=== PATIENT | female | born 1950 | race Caucasian/White ===

== ENCOUNTER → 2018-03-31 08:31 | Outpatient (CLI) | payer OTHER, SELFPAY | PROVIDERS: Visit Provider Internal Medicine Gastroenterology | DX: R13.10 Dysphagia, unspecified (principal); K21.9 Gastro-esophageal reflux disease without esophagitis | CPT/HCPCS: 74220 ==

== ENCOUNTER → 2019-08-14 10:18 | Outpatient (CLI) | payer OTHER, SELFPAY ==
[2018-12-01 13:17] VITALS: BMI 32.5
--- NOTE | 2019-08-14 10:23 | US_ITS ---
STUDY: ABDOMINAL ULTRASOUND - RIGHT UPPER QUADRANT REASON FOR VISIT: Female, 69 years old GENERAL ABD AND BACK PAIN X 3 MONTHS TECHNIQUE: Ultrasound evaluation of the right upper quadrant was performed with real-time and static castrejon-scale imaging. TECHNICAL QUALITY: Adequate. COMPARISON: None. FINDINGS: Liver: The liver measures 17.0 cm. There is increased echogenicity consistent with fatty infiltration. The bile ducts are within normal limits. There is hepatic color flow. The direction of portal flow is hepatopetal. There is a left hepatic lobe cyst measuring 1.2 cm. There is a 5 mm calcified granuloma in the inferior right hepatic lobe. Gallbladder: Normal distended gallbladder. The gallbladder wall measures 2.9 mm. There is a negative sonographic Damian''s sign. There is no pericholecystic fluid. There is a small amount of sludge and several tiny gallstones. Common Bile Duct (C.B.D.): The common bile duct measures 4.3 mm. Pancreas: Normal size of the head, body and tail of the pancreas. There is increased echogenicity of the pancreas. There is no demonstrated pancreatic mass or cyst. Right Kidney: Normal size of the right kidney. The right kidney measures 10.0 x 5.6 x 4.7 cm. Normal renal cortex. The right cortex measures 1.5 cm. There is no demonstrated renal mass or cyst. There is no right hydronephrosis. US/Abdomen Limited IMPRESSION: Increased hepatic echogenicity suggestive of steatosis. 1.2 cm left hepatic lobe cyst. 5 mm calcified granuloma of the inferior right hepatic lobe. Cholelithiasis. Small amount of sludge also seen in the gallbladder. Increased pancreatic echogenicity which may represent fatty infiltration. Electronically Signed: Bret Vargas MD at 21:24 EST , Service support ,
== END ==
PROVIDERS: Referring Provider Nurse Practitioner Family; Visit Provider Nurse Practitioner Family
DX: R10.10 Upper abdominal pain, unspecified (principal)
CPT/HCPCS: 76705

== ENCOUNTER 2019-09-05 08:43 | Observation (INO) | payer OTHER, MEDICARE, SELFPAY ==
[2019-08-23 14:09] VITALS: BMI 32.5
[2019-09-05] VITALS (12 sets, daily range): BP systolic 109–139; BP diastolic 49–80; PULSE 56–65; RESP 16; TEMP 36.6–36.7; O2SAT 91–99; BMI 35.0; BMI 34.4
--- NOTE | 2019-09-05 08:56 | EKG12_ITS ---
Test Reason : PRE OP Blood Pressure : / mmHG Vent. Rate : 059 BPM Atrial Rate : 059 BPM P-R Int : 180 ms QRS Dur : 094 ms QT Int : 414 ms P-R-T Axes : 035 -01 010 degrees QTc Int : [address] & T wave abnormality, consider anterior ischemia Abnormal ECG Confirmed by SIOMARA CURRAN ([id number]), content editor MEHNAZ HARPER ([id number]) on 09/08/2019 9:46:12 AM Referred By: MEHRDAD Confirmed By:SIOMARA CURRAN
--- NOTE | 2019-09-05 09:00 | RAD_ITS ---
STUDY: X-RAY CHEST REASON FOR EXAM: Female, 69 years old. SOB. ABNORMAL EKG. CHEST PAIN. TECHNIQUE: Single AP portable view of the chest. COMPARISON: None. FINDINGS: EKG electrodes are seen. Elevation of the right hemidiaphragm. Stable right pericardial fat. There is no demonstrated pleural abnormality. Normal size heart. Normal mediastinum and pearl. Normal visualized pulmonary arteries. There is atherosclerotic tortuosity of the aortic arch and descending thoracic aorta. There are degenerative changes of the visualized thoracic spine. Normal visualized ribs, clavicles, and shoulders. There is no demonstrated abnormality of the visualized soft tissue structures of the upper abdomen. RAD/Chest 1 View (Portable) IMPRESSION: No acute abnormality is seen. Electronically Signed: Octavio Aviles, at 9:38 EST , Service support ,
[2019-09-05] MEDS: 0.9% Normal Saline 1,000 ML 150 ML IV (09:28)
[2019-09-05] MEDS: Aspirin 81 MG TAB.CHEW 324 MG PO (09:28)
--- NOTE | 2019-09-05 10:15 | ED.DCSUM_ITS ---
- ER Visit Summary Date of Service: 09/05/19 Chief Complaint: [Abnormal EKG] History of Present Illness: The patient is a 69 F [presents to the emergency department with complaint of an abnormal EKG that was noted today at preadmission testing. Patient was having basic testing performed prior to having outpatient cholecystectomy in 2 weeks. Patient also was to have an EGD and colonoscopy today. EKG was noted to be markedly abnormal and she was referred to the emergency department. Patient denies any chest pain. She does state that she has had some increased exertional dyspnea. Patient also had some odd discomfort in her left shoulder several days ago that resolved after short time. Her last stress test was 25 to 30 years ago. He has no heart history. She does have history of hypertension and hypothyroidism. She denies recent travel or surgery.] Physical Examination: [HEENT-PERRLA, EOMI. Cranial nerves II through XII grossly intact. TMs clear. Mucous membranes moist. No adenopathy. Cardiovascular-regular rate and rhythm without murmur or ectopy Lungs-clear to auscultation, chest wall stable without crepitus or subcu emphysema Abdomen-normoactive bowel sounds, soft, nontender, no rebound or rigidity, no peritoneal signs. Extremities-intact ?4, normal range of motion, normal pulses, atraumatic] Test Results: [EKG obtained arrival shows sinus rhythm at a ventricular rate of [address] depressions from V1 to V5. When compared with prior EKG from 2005 the T wave inversions in V1 and V2 were much more subtle in 2006 and did not extend to V5.] Emergency Department Course and Treatment: [Patient was given aspirin on arrival. Patient was placed on monitoring engineer.] Treatment Plan: [Admit for further evaluation of abnormal EKG and exertional dyspnea to rule out acute coronary syndrome] Disposition: [Admit] Impression: [Exertional dyspnea Abnormal EKG Rule out acute coronary syndrome] This note was generated with [employer] dictation software. It may contain incorrect words, spelling, and punctuation that were not noted in review of the chart prior to signing ED Disposition - Plan for ED Patient: Referrals: Jonathan Ricks MD [Primary Care Provider] -
--- NOTE | 2019-09-05 10:15 | NURSING ---
108 EXERTIONAL SOB, EKG CHANGES ASHELFAH
--- NOTE | 2019-09-05 10:47 | HP.PCM_ITS ---
Problem List (1) Hypersomnia Status: Chronic (2) Depression Status: Chronic (3) Hypothyroidism Status: Chronic (4) HTN (hypertension), benign Status: Chronic History of Present Illness Date of Admission: 09/05/19 Chief Complaint: Abnormal EKG. The patient is a 69 year old F patient with past medical history as mentioned above was sent to the emergency department from preadmission testing because of abnormal EKG. Today, patient had blood work and EKG done for outpatient, supposed to go for upper EGD and colonoscopy today and cholecystectomy that was scheduled in 2 weeks and she was found to have abnormal EKG. Upon questioning, patient complained of shortness of breath that has been going on for several months, mild, comes on with moderate activity, exertional, no associated symptoms and without aggravating or relieving factors. She mentioned that few weeks ago, she had an episode of left shoulder pain that was different, pain on the top of the left shoulder, goes down to the left side of the neck, lasted for several minutes and then resolved spontaneously. She was diagnosed with T12 compression fracture recently and she has been having back pain that goes around her lower chest. Nausea, vomiting, diaphoresis, dizziness, syncope or presyncope. In the emergency department, her vital signs are stable. Her routine blood work was unremarkable. An EKG revealed normal sinus rhythm, inverted T waves in leads V3, V4 and V5, minimal ST segment depression on V3 and V4 and those changes are new compared to EKG from 2005. Chest x-ray showed no acute findings. She is being admitted for exertional shortness of breath and abnormal EKG for evaluation. Past Medical History Past Medical History (Chronic Problems): Chronic Problems (Last Updated 09/05/19 @ 10:08 by Abdirashid Gambino MD) Hypersomnia (Chronic) History of breast cancer (Chronic) Depression (Chronic) Hypothyroidism (Chronic) HTN (hypertension), benign (Chronic) Medical History: Medical History (Last Updated 09/05/19 @ 10:08 by Abdirashid Gambino MD) History of breast cancer (Chronic) Z85.3 Depression (Chronic) F32.9 Hypothyroidism (Chronic) E03.9 HTN (hypertension), benign (Chronic) I10 Allergies egg Allergy (Verified 09/05/19 08:43) Food Allergy wheat Allergy (Verified 09/05/19 08:43) Food Allergy dairy products Allergy (Uncoded 09/05/19 08:43) Food Allergy Home Medications: Ambulatory Orders Medication Instructions Recorded atenolol 50 mg tablet 50 mg PO DAILY 11/17/18 cetirizine 10 mg capsule 10 mg PO DAILY cap 11/17/18 paroxetine HCl 20 mg tablet 20 mg PO BID tab 11/17/18 alendronate 70 mg tablet 70 mg PO QWEEK 08/23/19 indapamide 1.25 mg tablet 1.25 mg PO QAM 08/23/19 levothyroxine 125 mcg tablet 150 mcg PO DAILY tab 08/23/19 Omeprazole 40 mg PO 1700 08/31/19 Calcium (Elemental) [Os-Madhu 500] 500 mg PO BIDCM 09/04/19 Cholecalciferol (Vitamin D3) 5,000 unit PO DAILY 09/04/19 [Vitamin D3] Surgical History: Surgical History (Last Reviewed 09/05/19 @ 10:47 by Abdirashid Gambino MD) History of (Inactive) Z98.891 History of arthroscopic knee surgery (Inactive) Z98.890 History of fusion of cervical spine (Inactive) Z98.1 Status post breast lumpectomy (Inactive) Z98.890 Surgical History: - Psychiatric History: Depression 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 Lives: Spouse/ Significant Other Smoking Status: Never smoker Alcohol: Occasional Drugs: None - *Family History Maternal Family History: Family History (Last Reviewed 09/05/19 @ 10:48 by Abdirashid Gambino MD) Mother Breast cancer Father Cancer Grandmother Heart disease CVA (cerebral vascular accident) Sister Heart disease Cancer COPD (chronic obstructive pulmonary disease) Multiple sclerosis Review of Systems Constitutional: Denies: Anorexia, Chills, Fever, Weakness Eyes: Denies: Blurred vision, Double vision, Drainage, Redness HEENT: Denies: Difficulty Hearing, Ear Pain, Eye Pain, Nasal Congestion, Sore Throat Cardiovascular: Denies: Chest Pain, Chest Pressure, Chest Tightness, Heaviness, Light Headedness, Orthopnea, Paroxysmal Noc. Dyspnea, Syncope Respiratory: Reports: Shortness of breath upon exertion. Denies: Cough, Pleuritic Pain, Shortness of breath at rest, Sputum production, Wheezing Gastrointestinal: Denies: Abdominal Pain, Constipation, Diarrhea, Nausea Genitourinary: Denies: Dysuria, Frequency, Hematuria Musculoskeletal: Reports: Back Pain. Denies: Arm Pain, Foot Pain Skin: Denies: Dryness, Rash Neurological: Denies: Balance problems, Blurred vision, Double vision, Slurred speech, Confusion, Incoordination, Numbness Psychiatric: Reports: Depression. Denies: Anxiety Endocrine: Denies: Change in Body Habitus, Polydipsia, Polyuria VTE Information - Inpt Only VTE Present on Admission: No VTE Mechan Device Prophylaxis: None VTE Pharm Prophylaxis ordered?: Yes - Physical Exam Vitals/I&O's: Vital Signs Temp Pulse Resp BP Pulse Ox 98.1 F 65 16 139/80 H 99 09/05/19 08:44 09/05/19 08:44 09/05/19 08:44 09/05/19 08:44 09/05/19 09:16 Oxygen Delivery Method Room Air Weight: 198 lb Body Mass Index (BMI) 35.0 General: Alert, Oriented x3, Cooperative, No apparent distress HEENT: Atraumatic, PERRLA, EOMI, Normocephalic Oral: Moist Mucosa, No Gingival or Mucosal Lesions/ Ulcerations Neck: Supple, No JVD, Negative Carotid Bruits, Trachea Midline, Thyroid Normal Size and Texture Lungs: Clear to auscultation, Normal air movement, No rhonchi, No wheeze, No rales Cardiovascular: Regular rate, Regular Rhythm, Normal S1, Normal S2, No murmurs, PMI Normal Abdomen: Bowel Sounds Present, Soft, Non Tender, Non-Distended, No Hepato- splenomegaly, Obese Extremities: No clubbing, No cyanosis, No edema Skin: No rashes, No breakdown Lymphatic: No Cervical, Supraclavicular, or Inguinal Adenopathy Neurological: Cranial nerves II-XII grossly intact, Motor Exam 5/5 strength throughout Psych/Mental Status: Normal Affect, Appropriate, Alert and oriented to time, place, person, mood and affect Laboratory Results 09/05/19 09:10: Troponin I < 0.015 CBC: WBC is 5.6, hemoglobin 13.7, platelet count 237,000. BMP: Sodium 139, potassium 3.7, chloride 106, bicarb is 26, BUN 14, creatinine is 0.91, glucose is 110. Troponin less than 0.015. Current Medications Acetaminophen (Tylenol) 650 mg PO Q6H PRN PRN PRN Reason: Pain Score 1-10/Temp > 100.7 F Aspirin (Ecotrin) 81 mg PO DAILY@0800 [facility] Enoxaparin Sodium (Lovenox) 40 mg SC DAILY [facility] Sodium Chloride () 1,000 mls @ 75 mls/hr IV .[id number] [facility] Stop: 09/05/19 23:53 Levothyroxine Sodium (Synthroid) 150 mcg PO DAILY [facility] Non-Formulary Medication (Cetirizine Hcl [Zyrtec]) 10 mg PO DAILY [facility] Non-Formulary Medication (Indapamide) 1.25 mg PO QAM [facility] Non-Formulary Medication (Omeprazole) 40 mg PO 1700 [facility] Ondansetron HCl (Zofran) 4 mg IV Q8H PRN PRN PRN Reason: NAUSEA/VOMITING Paroxetine HCl (Paxil) 20 mg PO BID [facility] Assessment/Plan This is a 69 years old female patient presented to the emergency room because of abnormal EKG that was done as outpatient today and complained of mild exertional shortness of breath and she is being admitted for evaluation. #1 exertional shortness of breath/EKG changes: EKG reviewed as above, septal changes including T wave inversion in V3, V4 and V5, minimal ST segment depression V3 and V4. No acute ST depression. Chest x-ray without acute findings. Troponin was negative. Her heart score is is 4 points, moderate. Plan: Admit to PCU observation, cardiac monitoring, serial cardiac enzymes, repeat EKG tomorrow morning, fasting lipid profile, start baby aspirin, Tylenol PRN, IV fluids, nuclear stress test tomorrow morning if cardiac enzymes are negative. #2 hypertension: Blood pressure stable, continue indapamide, hold atenolol as she is going for stress test tomorrow morning. #3 hypothyroidism: Continue levothyroxine. #4 history of breast cancer: Status post lumpectomy, stable, in remission. #5 depression: Stable, continue Paxil. #6 DVT prophylaxis: Subcu Lovenox. This note was generated with Ordr.ination software. It may contain incorrect words, spelling, and punctuation that were not noted in checking the note before signing. Code Visit OBSV E&M: 79506 Initial observation care L2
--- NOTE | 2019-09-05 11:19 | ECHOCS_ITS ---
Reason For Study: Abn. EKG Procedure This was a 2D Doppler, Color Flow transthoracic echocardiogram. The study was technically difficult. Exam performed portable in patient room. Left Ventricle Normal LV size. Left ventricular systolic function is normal. The estimated ejection fraction is 65 %. Diastolic function is indeterminate. No regional wall motion abnormalities noted. Right Ventricle Normal RV size. Normal systolic function. Atria Normal left atrium. Normal right atrium. No doppler evidence for ASD. Mitral Valve There is no mitral annular calcification. Normal mitral valve. Mild (1+) mitral valve insufficiency. Tricuspid Valve Normal tricuspid valve. Trivial tricuspid valve insufficiency. Unable to estimate RV systolic pressure/pulmonary artery pressure due to technically difficult study. Aortic Valve Trisinus/trileaflet aortic valve. Mild focal aortic valve calcification. Pulmonic Valve The pulmonic valve is not well visualized. Trivial pulmonic valve insufficiency. Great Vessels Normal sized aortic root. Pericardium/Pleural No pericardial effusion. MMode/2D Measurements & Calculations LVIDd: 4.8 cm IVSd: 1.0 cm Ao root diam: 3.4 cm LVIDs: 3.0 cm LVPWd: 0.81 cm RVDd: 3.1 cm FS: 37.2 % LAV(MOD-bp): 34.7 ml EDV(MOD-sp4): 83.6 ml EDV(MOD-sp2): 66.9 ml LAV(MOD-bp) Indexed: 18.0 ml/m2 ESV(MOD-sp4): 31.7 ml EF(MOD-sp2): 58.7 % LAV(MOD-sp2): 30.2 ml EF(MOD-sp4): 62.1 % LAV(MOD-sp4): 40.5 ml SV(MOD-sp4): 51.9 ml SV(MOD-sp2): 39.2 ml LA A4 area: 15.9 cm2 LA dimension(2D): 3.9 cm RA A4 area: 13.4 cm2 Doppler Measurements & Calculations MV E max terell: 84.0 cm/sec Lat Peak E' Terell: 8.7 cm/sec Med Peak E' Terell: 7.8 cm/sec MV A max terell: 84.5 cm/sec E/E' lat: 9.7 E/E' med: 10.8 MV E/A: 0.99 Ao V2 max: 142.5 cm/sec LV V1 max: 102.6 cm/sec PA V2 max: 100.9 cm/sec Ao max P.1 mmHg LV V1 max P.2 mmHg Interpretation Summary The study was technically difficult. Left ventricular systolic function is normal. The estimated ejection fraction is 65 %. Mild (1+) mitral valve insufficiency. Trivial tricuspid valve insufficiency. Mild focal aortic valve calcification. Trivial pulmonic valve insufficiency. Unable to estimate RV systolic pressure/pulmonary artery pressure due to technically difficult study. Diastolic function is indeterminate. Ordering Physician: Sean Shipley Referring Physician: Jonathan Ricks Performed By: Ciarra Xiong RDCS
[2019-09-05] MEDS: 0.9% Normal Saline 1,000 ML 75 ML IV (11:47)
--- NOTE | 2019-09-05 12:07 | CON.PCM_ITS ---
Problem List (1) Chest pain Status: Acute (2) Abnormal ECG Status: Acute (3) HTN (hypertension), benign Status: Chronic (4) Hypothyroidism Status: Chronic (5) Preop cardiovascular exam Status: Acute Reason for Consult Date of Consultation: 09/05/19 History of Present Illness: The patient is a 69 year old white female with a past medical history of hypertension, borderline hyperlipidemia , thyroidism, GERD, gallbladder disease pending upcoming laparoscopic cholecystectomy, who is referred for evaluation of chest discomfort and an abnormal ECG prior to an EGD/esophageal dilatation procedure and colonoscopy. The patient states that for some time now she has been having a bandlike discomfort around her lower rib cage. She has attributed this to previous vertebral disc disease. She notes that this is present more often than not but it does wax and wane. She also feels somewhat short of breath and dyspneic with activity at times. She has denied orthopnea, PND, and peripheral pitting edema. She states she has a history of syncope which based upon her history appears to be situational/vasovagal mediated-in the remote past. She has had no recent syncopal events. She notes as part of her evaluation she was to undergo EGD/esophageal dilatation this day-which she has had done in the past-as well as colonoscopy. She has been recently diagnosed with underlying cholelithiasis and sludge and is pending an upcoming laparoscopic cholecystectomy. However she was told by her general surgeon that her symptoms did not appear to solely emanate from her gastrointestinal disease process and she should consider other allergies and evaluations. She presented this day for her endoscopy procedures. She was evaluated by anesthesiology. Anesthesiology was concerned based upon her history. An ECG was obtained demonstrated sinus bradycardia with nonspecific ST and T wave changes which appear to be much more prominent compared to a remote ECG from 06-03-2006. She does not believe she has had any other cardiovascular testing in the interim. She states she has a history of a remote exercise tolerance test performed at an outside facility which was negative. She has never had to go through invasive evaluation or care. [] Past Medical History Allergies/Adverse Reactions: Allergies egg Allergy (Verified 09/05/19 08:43) Food Allergy wheat Allergy (Verified 09/05/19 08:43) Food Allergy dairy products Allergy (Uncoded 09/05/19 08:43) Food Allergy Home Medications: Ambulatory Orders Medication Instructions Recorded atenolol 50 mg tablet 50 mg PO DAILY 11/17/18 cetirizine 10 mg capsule 10 mg PO DAILY cap 11/17/18 paroxetine HCl 20 mg tablet 20 mg PO BID tab 11/17/18 alendronate 70 mg tablet 70 mg PO QWEEK 08/23/19 indapamide 1.25 mg tablet 1.25 mg PO QAM 08/23/19 levothyroxine 125 mcg tablet 150 mcg PO DAILY tab 08/23/19 Omeprazole 40 mg PO 1700 08/31/19 Calcium (Elemental) [Os-Madhu 500] 500 mg PO BIDCM 09/04/19 Cholecalciferol (Vitamin D3) 5,000 unit PO DAILY 09/04/19 [Vitamin D3] Past Medical History (Chronic Problems): Chronic Problems (Last Updated 09/05/19 @ 10:08 by Abdirashid Gambino MD) Hypersomnia (Chronic) History of breast cancer (Chronic) Depression (Chronic) Hypothyroidism (Chronic) HTN (hypertension), benign (Chronic) Surgical History: - 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 Denies: Orthopnea, PND, Peripheral Edema, Palpitations, Lightheadedness, Dizziness, Near Syncope Respiratory: Reports: Shortness of Breath. Denies: Cough, Sputum Production, Hemoptysis Gastrointestinal: Reports: Abdominal Discomfort. Denies: Hematemesis, Hematochezia, Melena Genitourinary: Denies: Dysuria, Hematuria Muscoloskeletal: Reports: Back Pain Skin: Denies: Rash Subjectve: A 69-year-old white female who appears to be resting reasonably comfortably at the moment in no acute distress. Objective: Vital Signs Temp Pulse Resp BP Pulse Ox 98 F 61 16 137/63 H 97 09/05/19 10:25 09/05/19 11:11 09/05/19 10:25 09/05/19 10:25 09/05/19 10:25 Oxygen Delivery Method Room Air Weight: 197 lb 5.019 oz Body Mass Index (BMI) 34.4 Intake and Output for Last 24 Hours 09/03/19 09/04/19 09/05/19 23:59 23:59 23:59 Intake Total 124.5 / 124.5 Balance 124.5 / 124.5 General: Awake, Alert, Oriented x 3, Cooperative, No Acute Distress HEENT: Atraumatic, Normocephalic, PERRL, EOMI, Sclera Non Icteric Oral: Moist Mucosa Neck: Supple, Good ROM, No JVD Lungs: Clear to auscultation Cardiovascular: Regular Rhythm, Normal S1, Normal S2 Vascular: Michael Carotid Artery Bruits Abdomen: Bowel Sounds Present, Soft, - - Positive tenderness to palpation in the epigastric area Extremities: No edema Neurological: No Focal Motor or Sensory Deficit Psych/Mental Status: Appropriate 09/05/19 09:10: Troponin I < 0.015 Rhythm: EKG: ECHO: Stress Test: Cardiac Cath: PCI: CT Surgery: Holter monitor: EPS: PPM: CXR: Chest CT Scan: Assessment/Plan 1. Chest pain The patient has ongoing chest discomfort. Her history is somewhat atypical. However she does have cardiovascular risk factors which have included hypertension, concern of hyperlipidemia, a remote tobacco history, and a positive family history. Also on examination she is noted to have faint bilateral carotid artery bruits compatible with carotid artery stenosis. She has had an ECG performed. It has demonstrated ST and T wave changes which appear to be more prominent compared to her remote ECG. She is due for upcoming endoscopy procedures and a general anesthetic laparoscopic cholecystectomy procedure. At the present time her case was reviewed with her. The recommendation was made that she should be considered for further cardiovascular evaluation. This may include both noninvasive and invasive studies. After discussing the case with the patient the consensus was to proceed with a transthoracic echocardiogram to evaluate the left ventricular wall motion, wall thickness, and systolic function as well as to further evaluate her coronary anatomy with a diagnostic cardiac catheterization. The procedure and risks were discussed with her and she was agreeable to this approach. Depending upon her findings she may or may not need further cardiac versus noncardiac evaluation. 2. Abnormal ECG Again she does have an abnormal preoperative ECG. Her changes have progressed since her remote ECG from 2005. She does not recall any other cardiovascular testing in the interim. Thus, her clinical case, coupled with her ECG, coupled with her need for upcoming noncardiac surgical procedures, led to the aforementioned recomm endations and plan. 3. Hypertension She will continue medical management as deemed appropriate. 4. Hypothyroidism She will continue medical therapy with adjustment as needed. 5. Preoperative assessment At this time she is being monitored. Her laboratory studies are being reviewed. Her ECG can be followed. She is undergoing further evaluation with a transthoracic echocardiogram. She is going to proceed with further definitive coronary evaluation with a diagnostic cardiac catheterization. Continue medical therapy with adjustment as deemed appropriate. Her endoscopy procedures surg ical procedures have been placed on hold pending her cardiovascular evaluation. When she does proceed with her noncardiac endoscopy and surgical procedures she should be recommended for monitoring of her cardiac rate, rhythm, and blood pressure as well as an attempt at avoidance of overhydration. She should continue medical therapy as deemed appropriate and around the time for procedures. Comment: The patient's case was discussed and reviewed with the patient, her spouse, her [id number] who is a [facility] echocardiographic cardiac catheterization technician, Dr. Arellano, and Dr. Gambino. This note was generated using a voice recognition system and there may be incorrect words, spelling or punctuation that were not noted when reviewing the office note prior to saving.
[2019-09-05 12:15] LABS: Cholesterol 149 mg/dL (200); High Density Lipoprotein 35 mg/dL; Triglycerides 117 mg/dL; Very Low Density Lipoprotein 23 mg/dL (5-40)
--- NOTE | 2019-09-05 12:55 | NURSING ---
Report called to Jake ROBERTS in rn labor and delivery.
--- NOTE | 2019-09-05 12:55 | CASEMGMT ---
According to the [employer] website, the following are in-network tertiary facilities: [facility], [facility], [facility], [facility], [facility], [facility], [employer], and . Gita ROBERTS CM
[2019-09-05] MEDS: 0.9% Saline Lock 10 ML Syringe IV (13:00)
[2019-09-05] MEDS: 0.9% Normal Saline 1,000 ML 15 ML IV (13:00)
--- NOTE | 2019-09-05 14:22 | CDU_ITS ---
Reason For Study: Bruits Rt. Velocities/BP Lt. Velocities/BP Prox CCA 89.1/16 cm/sec. Prox CCA 80.9/20.6 cm/sec. Mid CCA 68.2/17.3 cm/sec. Mid CCA 88.2/18.8 cm/sec. Dist CCA 63/18.6 cm/sec. Dist CCA 75.4/18.8 cm/sec. Prox ICA 57.8/18.6 cm/sec. Prox ICA 64.2/16.3 cm/sec. Mid ICA 78.6/29.1 cm/sec. Mid ICA 86.3/23.7 cm/sec. Dist ICA 85.2/27.8 cm/sec. Dist ICA 92.5/36 cm/sec. Rt. ICA/CCA = 1.25. Lt. ICA/CCA = 1.14. Prox ECA 81.2 cm/sec. Prox ECA 63/5.3 cm/sec. Rt. Vert. 101/24.3 cm/sec. Lt. Vert. 21.6 cm/sec. Right Extracranial There is intimal thickening but no significant atherosclerotic plaque noted in the right common carotid artery. There is heterogeneous, irregular atherosclerotic plaque noted in the right internal carotid artery. There is intimal thickening but no significant atherosclerotic plaque noted in the right external carotid artery. Antegrade flow is noted in the right vertebral artery. Left Extracranial There is homogeneous, smooth atherosclerotic plaque noted in the left common carotid artery. There is intimal thickening but no significant atherosclerotic plaque noted in the left internal carotid artery. There is intimal thickening but no significant atherosclerotic plaque noted in the left external carotid artery. Antegrade flow is noted in the left vertebral artery. Procedure Carotid Duplex [id number]. Exam performed in department. Interpretation Summary No hemodynamically significant plaque or stenosis right extracranial internal carotid artery with less than 50% stenosis <50% stenosis right external carotid No hemodynamically significant plaque or stenosis left extracranial internal carotid artery with less than 50% stenosis <50% stenosis left external carotid Patent, antegrade bilateral vertebrals Ordering Physician: Sean Shipley Referring Physician: Jonathan Ricks Performed By: Alesha Meade RVT
--- NOTE | 2019-09-05 14:22 | CL.D_ITS ---
Patient Name: MILTON COKER Study Date: 09/05/2019 Performing: Sean Shipley MD Ht: 63 inches 161 cm : 1950 Wt: 198.7 lbs 90 kg Age: 69 Gender: female BSA: 1.94 PROCEDURE(S) PERFORMED NB48-TRW/COR/LV CLINICAL PROFILE AND INDICATIONS Indications: Suspected CAD Heart Failure: None Stress/Imaging Stress/Image Study Performed: No Angina Classification Anginal Classification w/in 2 Weeks: CCS III CAD Presentations: Other: chest pain / shortness of breath CONCLUSIONS Elevated Left Ventricular End Diastolic Pressure Normal LV size, wall motion,and systolic function LVEF: by LV gram 60 % Normal coronary arteries RECOMMENDATIONS Risk factor modification Medical therapy DESCRIPTION OF PROCEDURE The patient arrived to the procedure lab. The risks and benefits of the procedure as well as a full d escription of our services here and current unavailability of surgical backup were fully explained to the patient and/or their significant other prior to the catheterization. The Timeout was completed, verifying the correct patient and procedure. The patient's procedural site was prepped and draped in the usual fashion. Local anesthetic was given subcutaneously to right radial region with Lidocaine 2% . Using a modified Seldinger technique, arterial access was obtained via the right radial artery, a 6 Fr sheath was inserted. Left Coronary Artery selective angiography was performed in multiple views u sing a 5 Fr. 4.0 Jessup catheter. Right Coronary Artery selective angiography was then performed in mu ltiple views using a 5 Fr. 4.0 Jessup catheter. Left Ventriculography was performed in ESQUIVEL projection using a 5 Fr. Pigtail catheter. LV to AO pullback pressures were then recorded.The arterial sheath was pulled and a TR Band was applied for hemostasis CORONARY ANGIOGRAPHY DOMINANCE: Right Dominant LEFT HEART ASSESSMENT Left Ventricular Ejection Fraction: by LV Gram 60 % Normal LV wall motion Elevated Left Ventricular End Diastolic Pressure LVEDP: 27 mmHg LEFT MAIN: Angiographically normal LEFT ANTERIOR DESCENDING ARTERY: Angiographically normal CIRCUMFLEX ARTERY: Angiographically normal RAMUS: Angiographically normal RIGHT CORONARY ARTERY: Angiographically normal AORTIC ROOT: Angiographically normal COMPLICATIONS No Complications PROCEDURE MEDICATIONS Fentanyl 50 mcg IV Versed 1 mg IV Oxygen: 2 L/min via nasal cannula Heparin diluted in 23cc Heparinized saline. Patient given 10cc IA of this solution. 09/05/2019 13:34:4 8 Verapamil 2.5mg, Ntg 100mcgs, 2000 units of Heparin diluted in 23cc Heparinized saline. Patient give n 10cc IA of this solution. 09/05/2019 13:34:48 IV Fluids: .9 NaCl increased to WO ml/hr 09/05/2019 13:36:38 SUMMARY OF HEMODYNAMIC DATA Time AIR REST ECG 13:15:36 AO 95/55 (71) SA 13:36:04 LV 135/-2, 26 13:42:27 LV 129/-1, 27 13:42:33 LV 134/-1, 26 13:43:25 LVp 133/-1, 28 13:43:30 AOp 125/63 (87) 13:43:35 Signed By Sean Shipley MD On 09/05/2019 14:21:39 Sean Shipley MD
--- NOTE | 2019-09-05 14:23 | DCINST_ITS ---
- Discharge Diagnoses Current Active Problems: Current Active and Chronic Problems (Last Updated 09/05/19 @ 10:08 by Abdirashid Gambino MD) Chest pain (Acute) Abnormal ECG (Acute) Preop cardiovascular exam (Acute) You will use the following diet at home:: Cardiac Your food should be the consistency of: Regular Discharge Activity: Return to Normal Activity Weight Bearing Status: Full weight bearing Call your doctor if you observe: Fever of 101 or Higher, Shortness of breath, Dizziness, Fainting spells, Chest pain, Increased palpitations (irregular heartbeat), Uncontrolled pain Allergies/Adverse Reactions: Allergies egg Allergy (Verified 09/05/19 08:43) Food Allergy wheat Allergy (Verified 09/05/19 08:43) Food Allergy dairy products Allergy (Uncoded 09/05/19 08:43) Food Allergy Medications to take at Discharge atenolol 50 mg tablet 50 mg PO DAILY 11/17/18 cetirizine 10 mg capsule 10 mg PO DAILY cap 11/17/18 paroxetine HCl 20 mg tablet 20 mg PO BID tab 11/17/18 alendronate 70 mg tablet 70 mg PO QWEEK 08/23/19 indapamide 1.25 mg tablet 1.25 mg PO QAM 08/23/19 levothyroxine 125 mcg tablet 150 mcg PO DAILY tab 08/23/19 Omeprazole 40 mg PO 1700 08/31/19 Calcium (Elemental) [Os-Madhu 500] 500 mg PO BIDCM 09/04/19 Cholecalciferol (Vitamin D3) [Vitamin D3] 5,000 unit PO DAILY 09/04/19 Primary Care Physician: Jonathan Ricks MD [Primary Care Provider] - Please follow up with your Primary Care Physician in: 2-4 weeks. Test Results: Test results from this visit will be discussed in further detail at your follow- up appointment, if applicable. Please Follow Up With: Duarte Moon MD When: call his office.
--- NOTE | 2019-09-05 14:26 | PCM.DC.SUM ---
Discharge Date and Diagnosis Date of Admission: 09/05/19 Date of Discharge: 09/05/19 - Primary Discharge Diagnosis Active and Suspected Problems (Last Updated 09/05/19 @ 10:08 by Abdirashid Gambino MD) Exertional shortness of breath/EKG changes, CAD ruled out. Cardiac catheterization revealed normal coronary arteries with ejection fraction 60%. - Secondary Discharge Diagnosis Chronic Problems (Last Updated 09/05/19 @ 10:08 by Abdirashid Gambino MD) Hypersomnia (Chronic) History of breast cancer (Chronic) Depression (Chronic) Hypothyroidism (Chronic) HTN (hypertension), benign (Chronic) Hospital Course and Treatment Imaging Results: 09/05/19 09:00 Chest 1 View (Portable) [RAD] Stat 09/05/19 11:19 Echo Complete W/ Contrast [ECHO] Routine Clinical Impression(s) from Imaging Studies Chest X-Ray 09/05/19 09:00 IMPRESSION: No acute abnormality is seen. Electronically Signed: Octavio Traci, at 9:38 EST , Service support , Dr. Shipley, cardiology. Procedures: 2-D Echocardiogram, Cardiac catheterization, EKG Summary of Care Provided: The patient is a 69 year old F patient was sent to the emergency department from the preadmission testing for abnormal EKG and she complained of exertional shortness of breath that has been going on for a month and she was admitted for evaluation. Her initial EKG revealed T wave inversion in leads V3, V4, V5 and minimal ST segment depression in V3 and V4. There was no evidence of acute ST elevation. Troponin was negative x2. Chest x-ray showed no acute findings. Her routine blood work was unremarkable. Cardiology consulted and patient underwent cardiac catheterization that revealed normal coronary arteries with ejection fraction of 60% which is normal. 2D echocardiogram performed and revealed ejection fraction 65% without evidence of significant valvular heart disease. Coronary artery disease ruled out. Bilateral carotid Doppler performed and revealed no hemodynamically significant plaque or stenosis on the right extracranial internal carotid artery and less than 50% stenosis on the right external carotid artery, less than 50% stenosis on the left external carotid artery. Patient discharged home in a stable condition, discharged on her same previous home medications without any changes, recommended follow-up with Dr. Moon as scheduled, recommended follow-up with PCP in 2 to 4 weeks. - Physical Exam Vitals/I&O's: Vital Signs Temp Pulse Resp BP Pulse Ox 97.8 F 57 L 16 109/49 L 91 09/05/19 14:05 09/05/19 14:20 09/05/19 14:20 09/05/19 14:20 09/05/19 14:20 Oxygen Delivery Method Room Air Weight: 197 lb 5.019 oz Body Mass Index (BMI) 34.4 Intake and Output for Last 24 Hours 09/03/19 09/04/19 09/05/19 23:59 23:59 23:59 Intake Total 238.25 / 238.25 Balance 238.25 / 238.25 General: Alert, Oriented x3, Cooperative, No apparent distress HEENT: Atraumatic, PERRLA, EOMI, Normocephalic Oral: Moist Mucosa, No Gingival or Mucosal Lesions/ Ulcerations Neck: Supple, No JVD, Negative Carotid Bruits, Trachea Midline, Thyroid Normal Size and Texture Lungs: Clear to auscultation, Normal air movement, No rhonchi, No wheeze, No rales Cardiovascular: Regular rate, Regular Rhythm, Normal S1, Normal S2, PMI Normal Abdomen: Bowel Sounds Present, Soft, Non Tender, Non-Distended, No Hepato-splenomegaly Extremities: No clubbing, No cyanosis, No edema Skin: No rashes, No breakdown Lymphatic: No Cervical, Supraclavicular, or Inguinal Adenopathy Neurological: Cranial nerves II-XII grossly intact, Motor Exam 5/5 strength throughout Psych/Mental Status: Normal Affect, Appropriate Laboratory Results 09/05/19 09:10: Troponin I < 0.015 09/05/19 11:28: Troponin I < 0.015, Triglycerides 117, Cholesterol 149, LDL Cholesterol 91, VLDL Cholesterol 23, HDL Cholesterol 35 L Current Medications Acetaminophen (Tylenol) 650 mg PO Q6H PRN PRN PRN Reason: Pain Score 1-10/Temp > 100.7 F Aspirin (Ecotrin) 81 mg PO DAILY@0800 [facility] Atenolol (Tenormin (Beta Demetria)) 50 mg PO DAILY [facility] Enoxaparin Sodium (Lovenox) 40 mg SC DAILY [facility] Sodium Chloride () 1,000 mls @ 75 mls/hr IV .[id number] [facility] Stop: 09/05/19 23:53 Last Infusion: 09/05/19 14:10 Dose: 75 mls/hr Documented by: Sodium Chloride () 250 mls @ 15 mls/hr IV .[id number] PRN PRN Reason: Saline Flush Sodium Chloride () 250 mls @ 15 mls/hr IV .[id number] PRN PRN Reason: Additional IVPB Infusion Sodium Chloride () 1,000 mls @ 0 mls/hr IV .Q0M AJITH Last Infusion: 09/05/19 14:10 Dose: Infused Documented by: Sodium Chloride () 1,000 mls @ 75 mls/hr IV .[id number] [facility] Stop: 09/05/19 18:09 Indapamide (Lozol) 1.25 mg PO QAM [facility] Levothyroxine Sodium (Synthroid) 150 mcg PO DAILY@0600 [facility] Loratadine (Claritin) 10 mg PO DAILY [facility] Ondansetron HCl (Zofran) 4 mg IV Q8H PRN PRN PRN Reason: NAUSEA/VOMITING Pantoprazole Sodium (Protonix) 40 mg PO 1700 [facility] Paroxetine HCl (Paxil) 20 mg PO BID [facility] Sodium Chloride () 10 - 40 ml IV UD PRN PRN Reason: SALINE FLUSH Last Admin: 09/05/19 13:00 Dose: 10 ml Documented by: Discharge Activity: Return to Normal Activity Weight Bearing Status: Full weight bearing Call your doctor if you observe: Fever of 101 or Higher, Shortness of breath, Dizziness, Fainting spells, Chest pain, Increased palpitations (irregular heartbeat), Uncontrolled pain Home Medications: Medications to take at Discharge atenolol 50 mg tablet 50 mg PO DAILY 11/17/18 cetirizine 10 mg capsule 10 mg PO DAILY cap 11/17/18 paroxetine HCl 20 mg tablet 20 mg PO BID tab 11/17/18 alendronate 70 mg tablet 70 mg PO QWEEK 08/23/19 indapamide 1.25 mg tablet 1.25 mg PO QAM 08/23/19 levothyroxine 125 mcg tablet 150 mcg PO DAILY tab 08/23/19 Omeprazole 40 mg PO 1700 08/31/19 Calcium (Elemental) [Os-Madhu 500] 500 mg PO BIDCM 09/04/19 Cholecalciferol (Vitamin D3) [Vitamin D3] 5,000 unit PO DAILY 09/04/19 Primary Care Physician: Jonathan Ricks MD [Primary Care Provider] - Please follow up with your Primary Care Physician in: 2-4 weeks. Please Follow Up With: Duarte Moon MD When: call his office. Disposition: Home Minutes spent on discharge:: 28 Patient Condition:: Stable Medical Necessity - Tobacco Use Smoking Status: Never smoker Meaningful Use Info Meaningful Use Diagnoses (Choose all that apply): None applicable Code Visit OBSV E&M: 54149 Observ/hosp same date L2
== END 2019-09-05 16:28 | disposition home or self-care (01) ==
LOC: ED 09:35 → PCU 10:30
PROVIDERS: Admitting Provider Hospitalist; Emergency Provider Emergency Medicine; Visit Provider Hospitalist
DX: R06.02 Shortness of breath (principal); I08.3 Combined rheumatic disorders of mitral, aortic and tricuspid valves; R94.31 Abnormal electrocardiogram [ECG] [EKG]; E03.9 Hypothyroidism, unspecified; I10 Essential (primary) hypertension; Z79.899 Other long term (current) drug therapy; R06.09 Other forms of dyspnea; Z85.3 Personal history of malignant neoplasm of breast; F32.9 Major depressive disorder, single episode, unspecified; K21.9 Gastro-esophageal reflux disease without esophagitis; E78.5 Hyperlipidemia, unspecified; R07.89 Other chest pain; K80.20 Calculus of gallbladder without cholecystitis without obstruction; R00.1 Bradycardia, unspecified; R09.89 Other specified symptoms and signs involving the circulatory and respiratory systems
CPT/HCPCS: 36415; 71045; 80061; 84484; 93005; 93306; 93458; 93880; 96360; 96361; 99152; 99153; 99218; 99283; J7030; Q9967; A4216; C1769; C1894; C8929; G0378

== ENCOUNTER 2019-09-06 11:14 | Day surgery (SDC) | payer OTHER, SELFPAY ==
--- NOTE | 2019-08-23 03:24 | HP_ITS ---
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 Is patient in pain?: No Allergies No Known Allergies Allergy (Verified 08/23/19 14:06) Medications atenolol 50 mg tablet 50 mg PO DAILY 11/17/18 [History Confirmed 08/23/19] cetirizine 10 mg capsule PO cap 11/17/18 [History Confirmed 08/23/19] hydrochlorothiazide 50 mg tablet 50 mg PO DAILY 11/17/18 [History Confirmed 08/23/19] paroxetine HCl 20 mg tablet 20 mg PO BID tab 11/17/18 [History Confirmed 08/23/19] alendronate 70 mg tablet 70 mg PO QWEEK 08/23/19 [History Confirmed 08/23/19] indapamide 1.25 mg tablet 1.25 mg PO QAM 08/23/19 [History Confirmed 08/23/19] levothyroxine 125 mcg tablet 150 mcg PO DAILY tab 08/23/19 [History Confirmed 08/23/19] omeprazole 40 mg capsule,delayed release 40 mg PO DAILY #30 cap 08/23/19 [Rx Confirmed 08/23/19] [facility] Medical History History of breast cancer (Chronic) Chronic cough (Chronic) Depression (Chronic) Hypothyroidism (Chronic) HTN (hypertension), benign (Chronic) Surgical History Status post breast lumpectomy (Resolved) History of arthroscopic knee surgery (Resolved) History of fusion of cervical spine (Resolved) History of (Resolved) Family History Mother Breast cancer Father Cancer Bone and Bladder CA Grandmother Heart disease CVA (cerebral vascular accident) Sister Heart disease Cancer lung COPD (chronic obstructive pulmonary disease) Multiple sclerosis Social History (Updated 08/23/19 @ 15:24 by Duarte Moon MD) Smoking Status: Former smoker Tobacco: How many years used: 5 second hand exposure: No alcohol intake: current alcohol intake frequency: holidays/special occasions only substance use type: does not use HPI HPI HPI: MILTON COKER is a 69 F who presents to the office today for HPI HPI Surgical H&P: Yes HPI: MILTON COKER is a 69 F who presents to the office today for who presents for surgical consultation and referral from Dr. Jonathan Ricks and his staff. A written copy of my surgical consult recommendations will be returned to Dave Fournier NP?C. The patient states that April 2018 she had a back injury and a compression fracture of T12. She had severe back pain. There was bilateral rib soreness. However symptoms have progressed. She claims that she cannot find a bra to wear because just the touch from the bra causes her pain. But now she thinks that she is developed abdominal symptoms. She complains of burping and bloating. She previously a year ago had an upper endoscopy done by Dr. Edin Mccollum which by her report showed eosinophilic esophagitis. Apparently the patient was seen by allergy and was placed on asthma medication. The patient currently states because she did not sense any improvement a year ago that she stopped all of her medication. She is not on any type of acid reduction or GERD medication or eosinophilic esophagitis medication. She denies any previous known history of H. pylori gastritis. She is never had a colonoscopy. To evaluate her nonspecific upper abdominal symptoms on August 14, [address] [facility] she had a right upper quadrant ultrasound. Shows a normal distended gallbladder gallbladder wall is 2.9 mm negative sonographic Damian sign no pericholecystic fluid a small amount of sludge and several tiny gallstones. The patient had laboratory obtained which demonstrates normal liver function test. Normal lipase. H. pylori by serology was normal. White count normal hemoglobin normal. Remotely on March 31, 2018 the patient had a barium swallow which is that of the tablet got trapped at the GE junction. ROS General General: Yes weight change, fatigue and breast cancer; no appetite, colon cancer or weakness HEENT HEENT: Yes difficulty swallowing; no eye injury, eye surgery, swollen glands or hoarseness Endo Endocrine: Yes thyroid disease; no diabetes mellitus, thyroid cancer, Hair loss, heat intolerance or cold intolerance Skin Skin: No rash or changing moles Breast Breast: No left breast lump, right breast lump, nipple discharge, breast pain, abnormal mammogram, abnormal US or breast enlargement Musc Musculoskeletal: Yes back problems and arthritis; no rheumatoid arthritis, gout or joint pain Cardio Cardiovascular: Yes high blood pressure; no murmur, pacemaker, heart disease, atrial fibrillation, heart attack, heart stent, palpitations, shortness of breat with exertion or chest pain Psych Psychiatric: Yes anxiety; no depression or hearing voices Resp Respiratory: Yes shortness of breath, No sleep apnea, Yes cough, No COPD, No asthma, No emphysema, No wheezing Gastro Gastrointestinal: Yes abdominal pain, No nausea or vomiting, No diarrhea, No constipation, No blood in stool, Yes acid reflux, No hemorrhoids, No ulcers, Yes gallbladder problem, No black,tarry stools Kai Hematologic: No blood thinners, No blood disorders, No bleeding, No anemia, No blood clots Neuro Neurologic: No system reviewed and no additional complaints, except as docu, No as per HPI, No abnormal walking, No abnormal hearing, No abnormal movements, No abnormal speech, No behavioral changes, No burning sensations, No confusion, No seizure-like activity, No unsteadiness, No dizziness, No localized weakness, No frequent falls, No headache(s), No lack of coordination, No loss of vision, No memory loss, No numbness, No other visual disturbances, No radiating pain, No restless legs, No sensory deficit, No fainting, No tingling, No tremor(s), No weakness, No other Exam Const General: cooperative Nutritional Appearance: obese Orientation: alert, awake, oriented x3 HENMT Head: normal to inspection Eyes General: appearance normal, both eyes and all related structures Chest Breast Palpation: No nipple discharge Resp Effort & Inspection: normal respiratory effort Auscultation: clear to auscultation bilaterally Cardio Rate: regular rate Rhythm: regular rhythm Heart Sounds: no murmurs GI Palpation: soft, no hepatosplenomegaly Auscultation: normal bowel sounds Skin General: no rashes or lesions noted Neuro Cognition: normal cognition Extrem General: no calf tenderness bilaterally Psych Affect: normal affect Assessment & Plan Problems 1. Pain of upper abdomen R10.10 Plan Bilateral subcostal pain tender to touch. Epigastric bloating burping. A very nonspecific generalized feeling of unwellness. I proposed with the patient a combined esophagogastroduodenoscopy with biopsy and colonoscopy with biopsy if indicated or polypectomy. She is aware of the technique, benefit, risk, alternatives. It is not clear to me to the etiology to her symptoms. She is well aware that this may still be a consequence of her T12 fracture We did discuss the potential than future treatment of a laparoscopic cholecystectomy with selective cholangiography. She is aware of the technique, benefit, risk, alternatives. It is not clear to me that I can define that she has biliary colic or chronic cholecystitis at this time. I do have concerns that ultrasound is demonstrating what is felt to be small gallstones placing her at risk. She has had an opportunity to ask and have questions answered. She would like to proceed as noted. CC:KAE Flores and Dr Jonathan Moon M.D., F.A.C.S. Orders Orders: Colonoscopy Today EGD Today R10.9 Medications New: omeprazole 40 mg PO DAILY 30 caps 0RF Coding Level of Care Code 18576 Diagnoses Pain of upper abdomen R10.10 ??Abdominal location: upper abdomen, unspecified 08/23/19 1524 <Electronically signed by Duarte goyal MD> Date _ Duarte Moon MD Yesterday the patient had EKG changes. She underwent cardiology consultation and had a cardiac catheterization. She is now felt to be cleared to proceed with endoscopic evaluation. The remainder of her history and physical is consistent.
[2019-08-23 14:09] VITALS: BMI 32.5
--- NOTE | 2019-09-05 08:00 | EKG12_ITS ---
Test Reason : ABNORMAL EKG Blood Pressure : / mmHG Vent. Rate : 059 BPM Atrial Rate : 059 BPM P-R Int : 166 ms QRS Dur : 094 ms QT Int : 420 ms P-R-T Axes : 038 015 017 degrees QTc Int : 415 ms Sinus bradycardia Nonspecific ST and T wave abnormality Abnormal ECG Confirmed by SIOMARA CURRAN ([id number]), manager editorial MEHNAZ HARPER ([id number]) on 09/08/2019 9:46:25 AM Referred By: Jonathan Ricks Confirmed By:SIOMARA CURRAN
[2019-09-05 08:44] LABS: Absolute Lymphocyte Count 1.38 X10^3/uL (0.83-4.51); Absolute Neutrophil Count 3.6 X10^3/uL (2.0-7.7); Basophil# 0.02 X10^3/uL; Basophil% 0.4 % (0-1); Eosinophil# 0.29 X10^3/uL; Eosinophils% 5.1 % (0-5); Hematocrit 41.6 % (37-47); Hemoglobin 13.7 g/dL (12.0-15.0); Lymphocyte # 1.38 X10^3/ul (4.0); Lymphocyte % 24.5 % (19-41); Mean Corp Hgb Conc 32.9 g/dL (32-36); Mean Corpuscular Hgb 26.7 pg (27.0-32.0); Mean Corpuscular Volume 80.9 fL (81-99); Mean Platelet Vol. 11.2 fl (6.2-12.0); Monocyte# 0.38 X10^3/uL; Monocyte% 6.7 % (0-10); NRBC Flagged by Analyzer 0 % (0-5); Neutrophil # 3.55 X10^3/uL (2.7-7.7); Neutrophil % 62.9 % (47-70); Platelet Count 237 K/mm3 (150-450); RBC Distribution Width CV 13.9 % (11.6-14.6); RBC Distribution Width SD 40.9 fl (35.1-43.9); Red Blood Count 5.14 M/mm3 (4.2-5.4); White Blood Count 5.6 K/mm3 (4.4-11.0)
[2019-09-05 08:59] LABS: Anion Gap 7 (5-15); BUN 14 mg/dL (7-18); BUN/Creat Ratio 15.4 RATIO (10-20); Calcium,Total 9.4 mg/dL (8.5-10.1); Chloride 106 mmol/L (98-107); Creatinine, Serum 0.91 mg/dL (0.55-1.02); EST Glomerular Filtration Rate 66 mL/min (>60); Est Glom Filt Rate - Afr Amer 79 mL/min (>60); Glucose 110 mg/dL (74-106); Potassium 3.7 mmol/L (3.5-5.1); Sodium Level 139 mmol/L (136-145)
[2019-09-05 11:11] VITALS: BMI 34.4
[2019-09-06] VITALS (7 sets, daily range): BP systolic 81–127; BP diastolic 35–64; PULSE 52–68; RESP 16; TEMP 36.8–37.2; O2SAT 93–97; BMI 34.6
[2019-09-06] MEDS: Lactated Ringers 1,000 ML 100 ML IV (11:56)
--- NOTE | 2019-09-06 12:30 | IMM_PTH ---
PATIENT: MILTON COKER LOC: [facility] U#:[id number] AGE/SX: 69/F ROOM: RE09/06/[address]: Dr. Duarte Moon MD : 1950 BED: DIS: 09/06/2019 SPEC #: [id number] RECD: 09/06/19 14:57 STATUS: JANEE REQ #: [id number] CORRY: 09/06/19 12:[address]: Duarte Moon DEPT: IMMUNOHISTOCHEMISTRY RECD BY: Abril Pryor ENTERED: 09/06/19 14:58 SP TYPE: IMMUNO OTHR DR: Dr. Jonathan Ricks MD Tissues: B - Abdomen, NOS Procedures: H Pylori (initial) PHYSICIAN & INSTITUTION [place] [id number] SPECIMEN INFORMATION: Tissue Source: B - Antrum biopsy Clinical Info: Upper abdominal pain Specimen Number: [id number] CPT code: 76179 METHODOLOGY: Deparaffinized sections of prefer/formalin-fixed tissue or PAP/DQ stained slides are incubated with monoclonal/polyclonal antibodies/oligonucleotide probes. Localization is made via biotin free immunoperoxidase method. Appropriate controls are performed and reacted as expected. Results on target cell population are indicated in the following table: RESULTS: ANTIBODY / CLONE RESULT Block B H Pylori (polyclonal) negative These tests were developed and their performance characteristics determined by [facility]. They may not have been cleared or approved by the [place]. Food and Drug Administration. The FDA has determined that such clearance or approval is not necessary. INTERPRETATION: B. Antrum biopsy: Negative for Helicobacter pylori organisms. AM:mitch 09/07/19
--- NOTE | 2019-09-06 12:30 | EGD_PTH ---
PATIENT: MILTON COKER LOC: EN U#:[id number] AGE/SX: 69/F ROOM: RE09/06/[address]: Dr. Duarte Moon MD : 1950 BED: DIS: 09/06/2019 SPEC #: [id number] RECD: 09/06/19 13:24 STATUS: JANEE CAROL #: [id number] CORRY: 09/06/19 12:[address]: Duarte Moon DEPT: SURGICAL PATHOLOGY RECD BY: Epi Meza ENTERED: 09/06/19 13:55 SP TYPE: EGD BIOPSY OT DR: Dr. Jonathan Ricks MD Tissues: A - Duodenum, NOS B - Gastric mucous membrane C - Esophageal mucous membrane D - Esophageal mucous membrane E - COLON BIOPSY Procedures: Surgery Specimen Level IV HEADER OPERATION: Colonoscopy, EGD ([facility]) PRE-OP DIAGNOSIS: Upper abdominal pain TISSUE SUBMITTED: A - Duodenal biopsy, B - Antrum biopsy for histo and H. pylori, C - Distal esophagus biopsy, D - Mid esophagus biopsy, E - Random colonic biopsy MICROSCOPIC DIAGNOSIS A. Duodenum, biopsy: Focal gastric metaplasia. Minimal nonspecific chronic inflammation. B. Gastric antrum, biopsy: Mild chronic gastritis. C. Distal esophagus, biopsy: Fragments of benign squamous mucosa with changes of reflux. D. Mid esophagus, biopsy: Fragments of benign squamous mucosa with changes suggestive of eosinophilic esophagitis. Scant fragments of benign gastric mucosa. E. Colon, random biopsy: Mild melanosis coli. AM:mitch 09/07/19 COMMENT B. The results of immunohistochemistry for Helicobacter pylori will be reported separately ([id number]). MICROSCOPIC DESCRIPTION Slides are reviewed. GROSS DESCRIPTION A - Received in fixative is one container labeled with the patient's name and designated duodenal biopsy. The specimen consists of one irregular fragment of light celeste soft tissue that measures 0.3 x 0.3 x 0.1 cm. The specimen is totally submitted in one cassette. B - Received in fixative is one container labeled with the patient's name and designated antrum biopsy. The specimen consists of one irregular fragment of light celeste soft tissue that measures 0.3 x 0.3 x 0.1 cm. The specimen is totally submitted in one cassette. C - Received in fixative is one container labeled with the patient's name and designated distal esophagus biopsy. The specimen consists of multiple irregular fragments of light celeste soft tissue that in aggregate measure 0.4 x 0.4 x 0.1 cm. The specimen is totally submitted in one cassette. D - Received in fixative is one container labeled with the patient's name and designated mid esophagus biopsy. The specimen consists of one irregular fragment of light celeste soft tissue that measures 0.2 x 0.2 x 0.1 cm. The specimen is totally submitted in one cassette. E - Received in fixative is one container labeled with the patient's name and designated random colonic biopsy. The specimen consists of multiple irregular fragments of light celeste soft tissue that in aggregate measure 1 x 0.4 x 0.1 cm. The specimen is totally submitted in one cassette. / SJ:rg 09/06/19 TC:3 CPT: 85843 x5
--- NOTE | 2019-09-06 13:15 | OP.CCLET_ITS ---
09/06/2019 Jonathan Ricks Re : Upper GI endoscopy procedure for Alma Xiong Dear Millicent This procedure was performed on Friday, September 06, 2019. My impressions and recommendations are as follows: Impressions : - Esophageal mucosal changes consistent with eosinophilic esophagitis. Biopsied distally and in mid esophagus Small hiatal hernia noted EG junction widely patent at 38cm. - Erythematous mucosa in the antrum. Biopsied. - Normal examined duodenum. Biopsied. Recommendations : - Discharge patient to home. - Resume previous diet. - Continue present medications. - Telephone my office for pathology results in 1 week. My findings are described in the full procedure note, which is enclosed. If I can be of further assistance, please feel free to contact me at Doctor phone number(s): Work: . Sincerely, Duarte Moon MD 09/06/2019 1:15:05 PM This report has been signed electronically.
--- NOTE | 2019-09-06 13:15 | OP.EGD_ITS ---
Patient Name: Alma Xiong Procedure Date: 09/06/2019 12:31 PM Date of : 1950 Age: 69 Procedure: Upper GI endoscopy Indications: Epigastric abdominal pain, Heartburn Providers: Duarte Moon MD Referring MD: Jonathan Ricks Medicines: See the Anesthesia note for documentation of the administered medications Complications: No immediate complications. Procedure: Pre-Anesthesia Assessment: - Prior to the procedure, a History and Physical was performed, and patient medications and allergies were reviewed. The patient's tolerance of previous anesthesia was also reviewed. The risks and benefits of the procedure and the sedation options and risks were discussed with the patient. All questions were answered, and informed consent was obtained. Prior Anticoagulants: The patient has taken no previous anticoagulant or antiplatelet agents. ASA Grade Assessment: II - A patient with mild systemic disease. After reviewing the risks and benefits, the patient was deemed in satisfactory condition to undergo the procedure. After obtaining informed consent, the endoscope was passed under direct vision. Throughout the procedure, the patient's blood pressure, pulse, and oxygen saturations were monitored continuously. The gastroscope was introduced through the mouth, and advanced to the second part of duodenum. The upper GI endoscopy was accomplished without difficulty. The patient tolerated the procedure well. Scope In: 12:48:10 PM Scope Out: 12:52:06 PM Total Procedure Duration Time 0 hours 3 minutes 56 seconds Findings: Mucosal changes including ringed esophagus were found in the middle third of the esophagus and in the lower third of the esophagus. Biopsies were taken with a cold forceps for histology. Diffuse mildly erythematous mucosa without bleeding was found in the gastric antrum. Biopsies were taken with a cold forceps for histology. The examined duodenum was normal. Biopsies were taken with a cold forceps for histology. Impression: - Esophageal mucosal changes consistent with eosinophilic esophagitis. Biopsied distally and in mid esophagus Small hiatal hernia noted EG junction widely patent at 38cm. - Erythematous mucosa in the antrum. Biopsied. - Normal examined duodenum. Biopsied. Recommendation: - Discharge patient to home. - Resume previous diet. - Continue present medications. - Telephone my office for pathology results in 1 week. Procedure Code(s): --- Professional --- 89644, Esophagogastroduodenoscopy, flexible, transoral; with biopsy, single or multiple Diagnosis Code(s): --- Professional --- K22.8, Other specified diseases of esophagus K31.89, Other diseases of stomach and duodenum R10.13, Epigastric pain R12, Heartburn CPT copyright 2017 [employer]. All rights reserved. The codes documented in this report are preliminary and upon label coder review may be revised to meet current compliance requirements. Duarte Moon MD 09/06/2019 1:15:05 PM This report has been signed electronically. Number of Addenda: 0 Note Initiated On: 09/06/2019 12:31 PM
--- NOTE | 2019-09-06 13:17 | OP.CCLET_ITS ---
09/06/2019 Jonathan Ricks Re : Colonoscopy procedure for Alma Xiong Dear Millicent This procedure was performed on Friday, September 06, 2019. My impressions and recommendations are as follows: Impressions : - Hemorrhoids found on perianal exam. - Diverticulosis in the sigmoid colon and in the descending colon. Biopsied. - The examination was otherwise normal. Recommendations : - Discharge patient to home. - Resume previous diet. - Continue present medications. - Telephone my office for pathology results in 1 week. - Repeat colonoscopy in 10 years for screening purposes. My findings are described in the full procedure note, which is enclosed. If I can be of further assistance, please feel free to contact me at Doctor phone number(s): Work: . Sincerely, Duarte Moon MD 09/06/2019 1:16:55 PM This report has been signed electronically.
--- NOTE | 2019-09-06 13:17 | OP.COLON_ITS ---
Patient Name: Alma Xiong Procedure Date: 09/06/2019 12:53 PM Date of : 1950 Age: 69 Procedure: Colonoscopy Indications: Screening for colorectal malignant neoplasm Providers: Duarte Moon MD Referring MD: Jonathan Ricks Medicines: See the Anesthesia note for documentation of the administered medications Patient Profile: Last Colonoscopy: none. The patient's first colonoscopy is today. Complications: No immediate complications. Procedure: Pre-Anesthesia Assessment: - Prior to the procedure, a History and Physical was performed, and patient medications and allergies were reviewed. The patient's tolerance of previous anesthesia was also reviewed. The risks and benefits of the procedure and the sedation options and risks were discussed with the patient. All questions were answered, and informed consent was obtained. Prior Anticoagulants: The patient has taken no previous anticoagulant or antiplatelet agents. ASA Grade Assessment: II - A patient with mild systemic disease. After reviewing the risks and benefits, the patient was deemed in satisfactory condition to undergo the procedure. After I obtained informed consent, the scope was passed under direct vision. Throughout the procedure, the patient's blood pressure, pulse, and oxygen saturations were monitored continuously. The Colonoscope was introduced through the anus and advanced to the cecum, identified by appendiceal orifice and ileocecal valve. The colonoscopy was performed without difficulty. The patient tolerated the procedure well. The quality of the bowel preparation was good. The ileocecal valve and the appendiceal orifice were photographed. Scope In: 12:55:04 PM Scope Withdrawal Time 0 hours 6 minutes 1 second Scope Out: 1:08:19 PM Total Procedure Duration Time 0 hours 13 minutes 15 seconds Findings: Hemorrhoids were found on perianal exam. Multiple diverticula were found in the sigmoid colon and descending colon. Biopsies for histology were taken with a cold forceps from the entire colon for evaluation of microscopic colitis. The exam was otherwise without abnormality. Impression: - Hemorrhoids found on perianal exam. - Diverticulosis in the sigmoid colon and in the descending colon. Biopsied. - The examination was otherwise normal. Recommendation: - Discharge patient to home. - Resume previous diet. - Continue present medications. - Telephone my office for pathology results in 1 week. - Repeat colonoscopy in 10 years for screening purposes. Procedure Code(s): --- Professional --- 82939, Colonoscopy, flexible; with biopsy, single or multiple Diagnosis Code(s): --- Professional --- Z12.11, Encounter for screening for malignant neoplasm of colon K64.9, Unspecified hemorrhoids K57.30, Diverticulosis of large intestine without perforation or abscess without bleeding CPT copyright 2017 [employer]. All rights reserved. The codes documented in this report are preliminary and upon sample checker review may be revised to meet current compliance requirements. Duarte Moon MD 09/06/2019 1:16:55 PM This report has been signed electronically. Number of Addenda: 0 Note Initiated On: 09/06/2019 12:53 PM
== END 2019-09-06 14:08 | disposition home or self-care (01) ==
LOC: EN 11:15 → AC 11:15
PROVIDERS: Visit Provider Surgery
PROC: 0DJD8ZZ Inspection of Lower Intestinal Tract, Via Natural or Artificial Opening Endoscopic (ICD-10-PCS; CPT 45378; principal; 2019-09-05 15:25)
DX: K29.50 Unspecified chronic gastritis without bleeding (principal); K29.80 Duodenitis without bleeding; K63.89 Other specified diseases of intestine; K44.9 Diaphragmatic hernia without obstruction or gangrene; K21.9 Gastro-esophageal reflux disease without esophagitis; K57.30 Diverticulosis of large intestine without perforation or abscess without bleeding; K64.9 Unspecified hemorrhoids; I10 Essential (primary) hypertension; E03.9 Hypothyroidism, unspecified; F32.9 Major depressive disorder, single episode, unspecified; F41.9 Anxiety disorder, unspecified; E66.9 Obesity, unspecified; Z68.36 Body mass index [BMI] 36.0-36.9, adult; Z85.3 Personal history of malignant neoplasm of breast; Z87.891 Personal history of nicotine dependence; Z79.899 Other long term (current) drug therapy
CPT/HCPCS: 43239; 45380; 36415; 80048; 85025; 88305; 88342; 93005; J7120

== ENCOUNTER 2019-09-18 08:16 | Day surgery (SDC) | payer OTHER, SELFPAY ==
--- NOTE | 2019-08-23 03:24 | HP_ITS ---
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 Is patient in pain?: No Allergies No Known Allergies Allergy (Verified 08/23/19 14:06) Medications atenolol 50 mg tablet 50 mg PO DAILY 11/17/18 [History Confirmed 08/23/19] cetirizine 10 mg capsule PO cap 11/17/18 [History Confirmed 08/23/19] hydrochlorothiazide 50 mg tablet 50 mg PO DAILY 11/17/18 [History Confirmed 08/23/19] paroxetine HCl 20 mg tablet 20 mg PO BID tab 11/17/18 [History Confirmed 08/23/19] alendronate 70 mg tablet 70 mg PO QWEEK 08/23/19 [History Confirmed 08/23/19] indapamide 1.25 mg tablet 1.25 mg PO QAM 08/23/19 [History Confirmed 08/23/19] levothyroxine 125 mcg tablet 150 mcg PO DAILY tab 08/23/19 [History Confirmed 08/23/19] omeprazole 40 mg capsule,delayed release 40 mg PO DAILY #30 cap 08/23/19 [Rx Confirmed 08/23/19] [facility] Medical History History of breast cancer (Chronic) Chronic cough (Chronic) Depression (Chronic) Hypothyroidism (Chronic) HTN (hypertension), benign (Chronic) Surgical History Status post breast lumpectomy (Resolved) History of arthroscopic knee surgery (Resolved) History of fusion of cervical spine (Resolved) History of (Resolved) Family History Mother Breast cancer Father Cancer Bone and Bladder CA Grandmother Heart disease CVA (cerebral vascular accident) Sister Heart disease Cancer lung COPD (chronic obstructive pulmonary disease) Multiple sclerosis Social History (Updated 08/23/19 @ 15:24 by Duarte Moon MD) Smoking Status: Former smoker Tobacco: How many years used: 5 second hand exposure: No alcohol intake: current alcohol intake frequency: holidays/special occasions only substance use type: does not use HPI HPI HPI: MILTON COKER is a 69 F who presents to the office today for HPI HPI Surgical H&P: Yes HPI: MILTON COKER is a 69 F who presents to the office today for who presents for surgical consultation and referral from Dr. Jonathan Ricks and his staff. A written copy of my surgical consult recommendations will be returned to Dave Fournier NP?C. The patient states that April 2018 she had a back injury and a compression fracture of T12. She had severe back pain. There was bilateral rib soreness. However symptoms have progressed. She claims that she cannot find a bra to wear because just the touch from the bra causes her pain. But now she thinks that she is developed abdominal symptoms. She complains of burping and bloating. She previously a year ago had an upper endoscopy done by Dr. Edin Mccollum which by her report showed eosinophilic esophagitis. Apparently the patient was seen by allergy and was placed on asthma medication. The patient currently states because she did not sense any improvement a year ago that she stopped all of her medication. She is not on any type of acid reduction or GERD medication or eosinophilic esophagitis medication. She denies any previous known history of H. pylori gastritis. She is never had a colonoscopy. To evaluate her nonspecific upper abdominal symptoms on August 14, 2019 at the [facility] she had a right upper quadrant ultrasound. Shows a normal distended gallbladder gallbladder wall is 2.9 mm negative sonographic Damian sign no pericholecystic fluid a small amount of sludge and several tiny gallstones. The patient had laboratory obtained which demonstrates normal liver function test. Normal lipase. H. pylori by serology was normal. White count normal hemoglobin normal. Remotely on March 31, 2018 the patient had a barium swallow which is that of the tablet got trapped at the GE junction. ROS General General: Yes weight change, fatigue and breast cancer; no appetite, colon cancer or weakness HEENT HEENT: Yes difficulty swallowing; no eye injury, eye surgery, swollen glands or hoarseness Endo Endocrine: Yes thyroid disease; no diabetes mellitus, thyroid cancer, Hair loss, heat intolerance or cold intolerance Skin Skin: No rash or changing moles Breast Breast: No left breast lump, right breast lump, nipple discharge, breast pain, abnormal mammogram, abnormal US or breast enlargement Musc Musculoskeletal: Yes back problems and arthritis; no rheumatoid arthritis, gout or joint pain Cardio Cardiovascular: Yes high blood pressure; no murmur, pacemaker, heart disease, atrial fibrillation, heart attack, heart stent, palpitations, shortness of breat with exertion or chest pain Psych Psychiatric: Yes anxiety; no depression or hearing voices Resp Respiratory: Yes shortness of breath, No sleep apnea, Yes cough, No COPD, No asthma, No emphysema, No wheezing Gastro Gastrointestinal: Yes abdominal pain, No nausea or vomiting, No diarrhea, No constipation, No blood in stool, Yes acid reflux, No hemorrhoids, No ulcers, Yes gallbladder problem, No black,tarry stools Kai Hematologic: No blood thinners, No blood disorders, No bleeding, No anemia, No blood clots Neuro Neurologic: No system reviewed and no additional complaints, except as docu, No as per HPI, No abnormal walking, No abnormal hearing, No abnormal movements, No abnormal speech, No behavioral changes, No burning sensations, No confusion, No seizure-like activity, No unsteadiness, No dizziness, No localized weakness, No frequent falls, No headache(s), No lack of coordination, No loss of vision, No memory loss, No numbness, No other visual disturbances, No radiating pain, No restless legs, No sensory deficit, No fainting, No tingling, No tremor(s), No weakness, No other Exam Const General: cooperative Nutritional Appearance: obese Orientation: alert, awake, oriented x3 HENMT Head: normal to inspection Eyes General: appearance normal, both eyes and all related structures Chest Breast Palpation: No nipple discharge Resp Effort & Inspection: normal respiratory effort Auscultation: clear to auscultation bilaterally Cardio Rate: regular rate Rhythm: regular rhythm Heart Sounds: no murmurs GI Palpation: soft, no hepatosplenomegaly Auscultation: normal bowel sounds Skin General: no rashes or lesions noted Neuro Cognition: normal cognition Extrem General: no calf tenderness bilaterally Psych Affect: normal affect Assessment & Plan Problems 1. Pain of upper abdomen R10.10 Plan Bilateral subcostal pain tender to touch. Epigastric bloating burping. A very nonspecific generalized feeling of unwellness. I proposed with the patient a combined esophagogastroduodenoscopy with biopsy and colonoscopy with biopsy if indicated or polypectomy. She is aware of the technique, benefit, risk, alternatives. It is not clear to me to the etiology to her symptoms. She is well aware that this may still be a consequence of her T12 fracture We did discuss the potential than future treatment of a laparoscopic cholecystectomy with selective cholangiography. She is aware of the technique, benefit, risk, alternatives. It is not clear to me that I can define that she has biliary colic or chronic cholecystitis at this time. I do have concerns that ultrasound is demonstrating what is felt to be small gallstones placing her at risk. She has had an opportunity to ask and have questions answered. She would like to proceed as noted. CC:KAE Flores and Dr Jonathan Moon M.D., F.A.C.S. Orders Orders: Colonoscopy Today EGD Today R10.9 Medications New: omeprazole 40 mg PO DAILY 30 caps 0RF Coding Level of Care Code 79931 Diagnoses Pain of upper abdomen R10.10 ??Abdominal location: upper abdomen, unspecified 08/23/19 1524 <Electronically signed by Duarte goyal MD> Date _ Duarte Moon MD
[2019-08-23 14:09] VITALS: BMI 32.5
[2019-09-06 11:39] VITALS: BMI 34.6
[2019-09-18] VITALS (8 sets, daily range): BP systolic 111–148; BP diastolic 51–97; PULSE 62–78; RESP 16–18; TEMP 36.6–37.3; O2SAT 90–94; BMI 34.6
--- NOTE | 2019-09-18 | GALL_PTH ---
PATIENT: MILTON COKER LOC: [facility] [place] U#:[id number] AGE/SX: 69/F ROOM: RE09/18/[address]: Dr. Duarte Moon MD : [id number] BED: DIS: 09/18/2019 SPEC #: [id number] RECD: 09/18/19 13:35 STATUS: JANEE CAROL #: [id number] CORRY: 09/18/19 00:[address]: Duarte Moon DEPT: SURGICAL PATHOLOGY RECD BY: Kelvin Ellsworth ENTERED: 09/18/19 13:35 SP TYPE: RAYMON DANG DR: Dr. Jonathan Ricks MD Tissues: Gallbladder, NOS Procedures: Surgery Specimen Level III HEADER OPERATION: Laparoscopic cholecystectomy with IOC PRE-OP DIAGNOSIS: Calculus of gallbladder with chronic cholecystitis; pain of upper abdomen TISSUE SUBMITTED: Gallbladder MICROSCOPIC DIAGNOSIS Gallbladder, cholecystectomy: Chronic cholecystitis, cholelithiasis and focal cholesterolosis. SJ:mitch 09/19/19 MICROSCOPIC DESCRIPTION Slides are reviewed. GROSS DESCRIPTION Received is one container labeled with the patient's name and designated gallbladder. The specimen consists of a gallbladder measuring 7.5 cm in length and up to 3 cm in diameter. The external surface is pink-celeste, smooth and glistening for the most part. Focally it is granular, hemorrhagic and contains cautery artifact. The gallbladder contains green-yellow mucoid bile and six irregular black stones measuring in aggregate 0.6 x 0.5 x 0.2 cm and 0.1 to 0.4 cm in greatest dimension. The mucosa is bile-stained and without any mass lesions. The gallbladder wall measures up to 0.1 cm in thickness. Hris Administrator sections from the gallbladder and the cystic duct are submitted in one cassette. / JOHN:mitch 09/18/19 TC:3 CPT: 40946
[2019-09-18] MEDS: Lactated Ringers 1,000 ML 100 ML IV (09:06)
--- NOTE | 2019-09-18 09:45 | PCM.HP.BLA ---
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 Is patient in pain?: No Allergies No Known Allergies Allergy (Verified 08/23/19 14:06) Medications atenolol 50 mg tablet 50 mg PO DAILY 11/17/18 [History Confirmed 08/23/19] cetirizine 10 mg capsule PO cap 11/17/18 [History Confirmed 08/23/19] hydrochlorothiazide 50 mg tablet 50 mg PO DAILY 11/17/18 [History Confirmed 08/23/19] paroxetine HCl 20 mg tablet 20 mg PO BID tab 11/17/18 [History Confirmed 08/23/19] alendronate 70 mg tablet 70 mg PO QWEEK 08/23/19 [History Confirmed 08/23/19] indapamide 1.25 mg tablet 1.25 mg PO QAM 08/23/19 [History Confirmed 08/23/19] levothyroxine 125 mcg tablet 150 mcg PO DAILY tab 08/23/19 [History Confirmed 08/23/19] omeprazole 40 mg capsule,delayed release 40 mg PO DAILY #30 cap 08/23/19 [Rx Confirmed 08/23/19] [facility] Medical History History of breast cancer (Chronic) Chronic cough (Chronic) Depression (Chronic) Hypothyroidism (Chronic) HTN (hypertension), benign (Chronic) Surgical History Status post breast lumpectomy (Resolved) History of arthroscopic knee surgery (Resolved) History of fusion of cervical spine (Resolved) History of (Resolved) Family History Mother Breast cancer Father Cancer Bone and Bladder CA Grandmother Heart disease CVA (cerebral vascular accident) Sister Heart disease Cancer lung COPD (chronic obstructive pulmonary disease) Multiple sclerosis Social History (Updated 08/23/19 @ 15:24 by Duarte Moon MD) Smoking Status: Former smoker Tobacco: How many years used: 5 second hand exposure: No alcohol intake: current alcohol intake frequency: holidays/special occasions only substance use type: does not use HPI HPI HPI: MILTON COKER, is a 69 F who presents to the office today for HPI HPI Surgical H&P: Yes HPI: MILTON COKER is a 69 F who presents to the office today for who presents for surgical consultation and referral from Dr. Jonathan Ricks and his staff. A written copy of my surgical consult recommendations will be returned to Dave Fournier MANAGER CCU?C. The patient states that April 2018 she had a back injury and a compression fracture of T12. She had severe back pain. There was bilateral rib soreness. However symptoms have progressed. She claims that she cannot find a bra to wear because just the touch from the bra causes her pain. But now she thinks that she is developed abdominal symptoms. She complains of burping and bloating. She previously a year ago had an upper endoscopy done by Dr. Edin Mccollum which by her report showed eosinophilic esophagitis. Apparently the patient was seen by allergy and was placed on asthma medication. The patient currently states because she did not sense any improvement a year ago that she stopped all of her medication. She is not on any type of acid reduction or GERD medication or eosinophilic esophagitis medication. She denies any previous known history of H. pylori gastritis. She is never had a colonoscopy. To evaluate her nonspecific upper abdominal symptoms on August 14, 2019 at the [facility] she had a right upper quadrant ultrasound. Shows a normal distended gallbladder gallbladder wall is 2.9 mm negative sonographic Damian sign no pericholecystic fluid a small amount of sludge and several tiny gallstones. The patient had laboratory obtained which demonstrates normal liver function test. Normal lipase. H. pylori by serology was normal. White count normal hemoglobin normal. Remotely on March 31, 2018 the patient had a barium swallow which is that of the tablet got trapped at the GE junction. ROS General General: Yes weight change, fatigue and breast cancer; no appetite, colon cancer or weakness HEENT HEENT: Yes difficulty swallowing; no eye injury, eye surgery, swollen glands or hoarseness Endo Endocrine: Yes thyroid disease; no diabetes mellitus, thyroid cancer, Hair loss, heat intolerance or cold intolerance Skin Skin: No rash or changing moles Breast Breast: No left breast lump, right breast lump, nipple discharge, breast pain, abnormal mammogram, abnormal US or breast enlargement Musc Musculoskeletal: Yes back problems and arthritis; no rheumatoid arthritis, gout or joint pain Cardio Cardiovascular: Yes high blood pressure; no murmur, pacemaker, heart disease, atrial fibrillation, heart attack, heart stent, palpitations, shortness of breat with exertion or chest pain Psych Psychiatric: Yes anxiety; no depression or hearing voices Resp Respiratory: Yes shortness of breath, No sleep apnea, Yes cough, No COPD, No asthma, No emphysema, No wheezing Gastro Gastrointestinal: Yes abdominal pain, No nausea or vomiting, No diarrhea, No constipation, No blood in stool, Yes acid reflux, No hemorrhoids, No ulcers, Yes gallbladder problem, No black,tarry stools Kai Hematologic: No blood thinners, No blood disorders, No bleeding, No anemia, No blood clots Neuro Neurologic: No system reviewed and no additional complaints, except as docu, No as per HPI, No abnormal walking, No abnormal hearing, No abnormal movements, No abnormal speech, No behavioral changes, No burning sensations, No confusion, No seizure-like activity, No unsteadiness, No dizziness, No localized weakness, No frequent falls, No headache(s), No lack of coordination, No loss of vision, No memory loss, No numbness, No other visual disturbances, No radiating pain, No restless legs, No sensory deficit, No fainting, No tingling, No tremor(s), No weakness, No other Exam Const General: cooperative Nutritional Appearance: obese Orientation: alert, awake, oriented x3 HENMT Head: normal to inspection Eyes General: appearance normal, both eyes and all related structures Chest Breast Palpation: No nipple discharge Resp Effort & Inspection: normal respiratory effort Auscultation: clear to auscultation bilaterally Cardio Rate: regular rate Rhythm: regular rhythm Heart Sounds: no murmurs GI Palpation: soft, no hepatosplenomegaly Auscultation: normal bowel sounds Skin General: no rashes or lesions noted Neuro Cognition: normal cognition Extrem General: no calf tenderness bilaterally Psych Affect: normal affect Assessment & Plan Problems 1. Pain of upper abdomen R10.10 Plan Bilateral subcostal pain tender to touch. Epigastric bloating burping. A very nonspecific generalized feeling of unwellness. I proposed with the patient a combined esophagogastroduodenoscopy with biopsy and colonoscopy with biopsy if indicated or polypectomy. She is aware of the technique, benefit, risk, alternatives. It is not clear to me to the etiology to her symptoms. She is well aware that this may still be a consequence of her T12 fracture We did discuss the potential than future treatment of a laparoscopic cholecystectomy with selective she is aware of the technique, benefit, risk, alternatives she is aware of the technique, benefit, risk, alternatives. It is not clear to me that I can define that she has biliary colic or chronic cholecystitis at this time. I do have concerns that ultrasound is demonstrating what is felt to be small gallstones placing her at risk. She has had an opportunity to ask and have questions answered. She would like to proceed as noted. CC:KAE Flores and Dr Jonathan Moon M.D., F.A.C.S. Insert H&P no changes Imaging demonstrated small amount of sludge and gallstones. The patient presents now for planned laparoscopic cholecystectomy with selective angiography. She is aware of the technique, benefit, risk and alternatives. We will proceed as noted. Duarte Moon M.D., F.A.C.S.
[2019-09-18] MEDS: Cefazolin 2 GM in 0.9% Normal Saline 100 ML IV (10:20)
--- NOTE | 2019-09-18 10:20 | RAD_ITS ---
STUDY: INTRAOPERATIVE CHOLANGIOGRAM. REASON FOR EXAM: Female, 69 years old. CHOLANGIOGRAM FLUOROSCOPY TIME (if supplied): ( 14.3 seconds ) minutes/seconds TECHNIQUE: And intraoperative cholangiography was performed by the surgeon. Imaging was submitted. COMPARISON: None. FINDINGS: The visualized intrahepatic ducts are unremarkable. The common bile duct is not dilated. There is free flow of contrast into the duodenum. RAD/Cholangiogram/ O R,Initial IMPRESSION: Unremarkable intraoperative cholangiogram. Electronically Signed: Octavio Aviles, at 11:07 EST , Service support ,
--- NOTE | 2019-09-18 10:28 | DCINST_ITS ---
Discharge Diet: Light diet - advance as tolerated - if you have questions about your diet instructions, please talk to you doctor. Discharge Activity: May Not Drive - for 3-5 days or while taking narcotic pain medicine. May shower in (days): 1 Lifting Restrictions: 10 pounds Call your doctor if your incision/area has: Continuous Slow Oozing, Sudden Increased Bleeding, Increased Pain/ Swelling, Increased Redness, Foul Smelling Discharge Call your doctor if you observe: Fever of 101 or Higher Suture Line Care: Avoid Pulling/Pushing, Avoid Pinching/Bending Additional Dressing/Incision Instructions:: Change or remove dressing in 4 days. Leave steri-strips in place for 1 week. Allergies/Adverse Reactions: Allergies egg Allergy (Verified 09/18/19 08:51) Food Allergy wheat Allergy (Verified 09/18/19 08:51) Food Allergy dairy products Allergy (Uncoded 09/18/19 08:51) Food Allergy Medications to take at Discharge atenolol 50 mg tablet 50 mg PO DAILY 11/17/18 cetirizine 10 mg capsule 10 mg PO DAILY cap 11/17/18 paroxetine HCl 20 mg tablet 20 mg PO BID tab 11/17/18 alendronate 70 mg tablet 70 mg PO QWEEK 08/23/19 indapamide 1.25 mg tablet 1.25 mg PO QAM 08/23/19 levothyroxine 125 mcg tablet 150 mcg PO DAILY tab 08/23/19 Omeprazole 40 mg PO 1700 08/31/19 Calcium (Elemental) [Os-Madhu 500] 500 mg PO BIDCM 09/04/19 Cholecalciferol (Vitamin D3) [Vitamin D3] 5,000 unit PO DAILY 09/04/19 Hydrocodone Bitart/Apap 5-325 [[place]dale 5MG-325MG] 1 tablet PO Q6H PRN PRN 2 Days #8 tablet 09/18/19 The following prescriptions were given: Hydrocodone Bitart/Apap 5-325 [[place] 5MG-325MG] 1 tablet PO Q6H PRN PRN 2 Days #8 tablet PRN Reason: Pain Transmission Status: Sent to [facility] Primary Care Physician: Jonathan Ricks MD [Primary Care Provider] - Test Results: Test results from this visit will be discussed in further detail at your follow- up appointment, if applicable. Please Follow Up With: Duarte Moon MD - [phone] When: Call to make an appointment to be seen in about 10 days.
[2019-09-18] MEDS: Bupivacaine Mpf 0.5% 30 ML VIAL (11:25)
--- NOTE | 2019-09-18 11:25 | OP.PCM_ITS ---
Problem List (1) Cholelithiasis with chronic cholecystitis Status: Chronic Qualifiers: Cholelithiasis location: gallbladder Biliary obstruction: without biliary obstruction Qualified Code(s): K80.10 - Calculus of gallbladder with chronic cholecystitis without obstruction Report of Operation Date of Procedure: 09/18/19 Pre-Operative Diagnosis: Chronic cholecystitis cholelithiasis Post-Operative Diagnosis: Same Surgery/Procedure Performed:: Laparoscopic cholecystectomy with cholangiograms Description of Surgical Findings:: Timeout and informed consent was obtained. 69-year-old female taken the operating placement table underwent general endotracheal intubation anesthesia. The abdomen sterilely prepped draped. Ancef 2 g given intravenously. 0.5% Marcaine was used as a local anesthetic. Throughout the procedure total 30 cc was used. Skin sites were pre-anesthetized. A vertical infraumbilical incision was created holding sutures of 0 Vicryl placed varies needle inserted saline drop test performed the abdomen was insufflated with CO2 to a pressure of 10 mmHg pressure Nicci trocar inserted hemianopsia inserted no ventral trocar injuries under the causation 5 Griggs ports were placed in the epigastric mid abdomen right upper quadrant the gallbladder adhesions of omentum to it these camacho d to be sharply and bluntly dissected free then the gallbladder was distracted blunt dissection was since to that end of the infundibulum until clearly the cystic artery and cystic duct were identified. The critical view was achieved. Hem-o-maria guadalupe clip was placed on the cystic duct incision in the cystic duct cholangiogram catheter inserted through a 14-gauge Angiocath and fluoroscopically control cholangiograms were obtained demonstrating normal ductal anatomy and free flow into the small bowel. The cholangiogram cath was removed to Hem-o-maria guadalupe clips were placed on the cystic duct stump prior to transecting it. The cystic. Was clipped twice proximally prior to transecting it. The gallbladder was dissected free from the liver bed. Was quite densely adherent and tedious careful dissection was required. The gallbladder was completely released there was no spillage. The gallbladder was placed in a retrieval bag. The right upper quadrant was irrigated and aspirated free of excess fluid. It was noted to be hemostatic. Clips were intact. The gallbladder was removed at the umbilicus remaining trochars removed under visualization the abdomen was allowed to deflate of the CO2. The fascia at the umbilicus was approximated interrupted 0 Vicryl [id number] suture. Skin edges were approximated opted for Monocryl subdermal stitches. Steri-Strips Telfa and OpSite dressings applied. Sponge and instrument and needle counts reported surgical correct. Specimens gallbladder. Drains none. Blood loss minimal. Patient was taken to recovery area in satisfactory edition without apparent complication Duarte Moon M.D., F.A.C.S. Type of Anesthesia:: General Anesthesiologist: Davi Bone
== END 2019-09-18 14:30 | disposition home or self-care (01) ==
LOC: SDC 08:17 → AC 08:18
PROVIDERS: Referring Provider Surgery; Visit Provider Surgery
PROC: (CPT 47610; principal; 2019-09-18 10:00)
DX: K80.10 Calculus of gallbladder with chronic cholecystitis without obstruction (principal); E03.9 Hypothyroidism, unspecified; F32.9 Major depressive disorder, single episode, unspecified; I10 Essential (primary) hypertension; Z79.899 Other long term (current) drug therapy; F41.9 Anxiety disorder, unspecified; Z87.891 Personal history of nicotine dependence; K21.9 Gastro-esophageal reflux disease without esophagitis
CPT/HCPCS: 47563; 74300; 76000; 88304; J7120; J2405

== ENCOUNTER → 2019-09-25 14:20 | Outpatient (CLI) | payer OTHER, SELFPAY ==
[2019-09-18 08:53] VITALS: BMI 34.6
[2019-09-25 14:57] LABS: Bacteria 0 SEEN /hpf (None Seen); Red Blood Cells-Urine 0 SEEN /hpf (0-5); Squamous Epithelial Cells - UA 0 SEEN /hpf (5-10); White Blood Cells 0 SEEN /hpf (0-5)
[2019-09-25 15:06] LABS: Color, Urine Yellow (Yellow); Glucose, Dipstick Normal (Normal); Ketone-Dipstick Negative (Negative); Leukocyte Esterase-Dipstick Negative /ul (Negative); Nitrite-Dipstick Negative (Negative); Occult Blood-Urine Negative /ul (Negative); Protein-Dipstick 15 mg/dl (Negative); Specific Gravity, Urine 1.025 (1.002-1.030); Urine Bilirubin Dipstick Negative (Negative); Urine Clarity Sl. Cloudy (Clear); Urine Urobilinogen Normal (Normal)
[2019-09-25 15:11] LABS: Mucous, Urine 3+ /hpf (<or=2+)
== END ==
PROVIDERS: Referring Provider Physician Assistant; Visit Provider Physician Assistant
DX: R30.0 Dysuria (principal)
CPT/HCPCS: 81001

== ENCOUNTER → 2020-01-22 08:57 | Outpatient (CLI) | payer OTHER, SELFPAY ==
[2019-09-18 08:53] VITALS: BMI 34.6
[2020-01-22 10:47] LABS: Creatinine, Serum 0.92 mg/dL (0.55-1.02); EST Glomerular Filtration Rate 65 mL/min (>60); Est Glom Filt Rate - Afr Amer 79 mL/min (>60)
== END ==
LOC: LAB 08:59 → LABSPEC 09:00 → LAB 01-23 07:46
PROVIDERS: Referring Provider Orthopaedic Surgery Orthopaedic Surgery of the Spine; Visit Provider Orthopaedic Surgery Orthopaedic Surgery of the Spine
DX: M43.9 Deforming dorsopathy, unspecified (principal)
CPT/HCPCS: 36415; 82565

== ENCOUNTER → 2020-12-02 14:52 | Outpatient (CLI) | payer MEDICARE, OTHER, SELFPAY ==
[2020-12-02 14:33] VITALS: BMI 34.6
[2020-12-02 16:45] LABS: Absolute Lymphocyte Count 1.63 X10^3/uL (0.83-4.51); Absolute Neutrophil Count 4.4 X10^3/uL (2.0-7.7); Basophil# 0.02 X10^3/uL; Basophil% 0.3 % (0-1); Eosinophil# 0.33 X10^3/uL; Eosinophils% 4.8 % (0-5); Hematocrit 45.4 % (37-47); Hemoglobin 14.2 g/dL (12.0-15.0); Lymphocyte # 1.63 X10^3/ul (0.83-4.51); Lymphocyte % 23.8 % (19-41); Mean Corp Hgb Conc 31.3 g/dL (32-36); Mean Platelet Vol. 11.3 fl (6.2-12.0); Monocyte# 0.43 X10^3/uL; Monocyte% 6.3 % (0-10); NRBC Flagged by Analyzer 0 % (0-5); Neutrophil # 4.42 X10^3/uL (2.7-7.7); Neutrophil % 64.5 % (47-70); Platelet Count 307 K/mm3 (150-450); RBC Distribution Width SD 45.4 fl (35.1-43.9); Red Blood Count 5.47 M/mm3 (4.2-5.4); White Blood Count 6.9 K/mm3 (4.4-11.0)
[2020-12-02 16:51] LABS: Vitamin D,25 Hydroxy 18.6 ng/mL
[2020-12-02 16:52] LABS: ALB/GLOB Ratio 1.1 RATIO (0.9-2.4); AST(SGOT) 18 U/L (15-37); Alanine Aminotransfer ALT/SGPT 35 U/L (13-56); Alkaline Phosphatase 70 U/L (45-117); Anion Gap 8 (5-15); BUN 24 mg/dL (7-18); BUN/Creat Ratio 23.5 RATIO (10-20); Calcium,Total 9.3 mg/dL (8.5-10.1); Chloride 104 mmol/L (98-107); Cholesterol 183 mg/dL (200); Creatinine, Serum 1.02 mg/dL (0.55-1.02); EST Glomerular Filtration Rate 57 mL/min (>60); Est Glom Filt Rate - Afr Amer 69 mL/min (>60); Globulin 3.5 g/dL (2.2-4.2); Glucose 107 mg/dL (74-106); High Density Lipoprotein 39 mg/dL; Protein, Total 7.5 g/dL (6.4-8.2); Sodium Level 141 mmol/L (136-145); Triglycerides 215 mg/dL; Very Low Density Lipoprotein 43 mg/dL (5-40)
== END ==
PROVIDERS: PCP Internal Medicine; Visit Provider Internal Medicine
DX: I10 Essential (primary) hypertension (principal); E55.9 Vitamin D deficiency, unspecified
CPT/HCPCS: 36415; 80053; 80061; 82306; 85025

== ENCOUNTER → 2020-12-24 15:12 | Outpatient (CLI) | payer MEDICARE, OTHER, SELFPAY ==
[2020-12-02 14:33] VITALS: BMI 34.6
[2020-12-24 17:17] LABS: Anion Gap 5 (5-15); BUN 19 mg/dL (7-18); BUN/Creat Ratio 19.3 RATIO (10-20); Calcium,Total 9.7 mg/dL (8.5-10.1); Chloride 103 mmol/L (98-107); Creatinine, Serum 0.98 mg/dL (0.55-1.02); EST Glomerular Filtration Rate 60 mL/min (>60); Est Glom Filt Rate - Afr Amer 72 mL/min (>60); Glucose 108 mg/dL (74-106); Potassium 4.2 mmol/L (3.5-5.1); Sodium Level 140 mmol/L (136-145); Thyroid Stim Hormone (TSH) 0.16 uIU/mL (0.358-3.74)
== END ==
PROVIDERS: PCP Internal Medicine; Referring Provider Internal Medicine; Visit Provider Internal Medicine
DX: E87.6 Hypokalemia (principal); E03.9 Hypothyroidism, unspecified
CPT/HCPCS: 36415; 80048; 84443

== ENCOUNTER → 2021-02-11 14:59 | Outpatient (CLI) | payer MEDICARE, OTHER, SELFPAY ==
[2021-02-11 14:34] VITALS: BMI 34.6
[2021-02-11 17:02] LABS: Anion Gap 5 (5-15); BUN 21 mg/dL (7-18); Calcium,Total 9.7 mg/dL (8.5-10.1); Chloride 102 mmol/L (98-107); EST Glomerular Filtration Rate 58 mL/min (>60); Est Glom Filt Rate - Afr Amer 71 mL/min (>60); Glucose 84 mg/dL (74-106); Potassium 3.6 mmol/L (3.5-5.1); Sodium Level 140 mmol/L (136-145); Thyroid Stim Hormone (TSH) 0.89 uIU/mL (0.358-3.74)
== END ==
PROVIDERS: PCP Internal Medicine; Referring Provider Physician Assistant; Visit Provider Physician Assistant
DX: E87.6 Hypokalemia (principal); I10 Essential (primary) hypertension
CPT/HCPCS: 36415; 80048; 84443

== ENCOUNTER → 2021-03-03 12:57 | Outpatient (CLI) | payer MEDICARE, OTHER, SELFPAY ==
[2021-03-03 10:04] VITALS: BMI 34.6
[2021-03-03 13:29] LABS: Color, Urine Yellow (Yellow); Glucose, Dipstick Normal (Normal); Ketone-Dipstick Negative (Negative); Leukocyte Esterase-Dipstick 500 /ul (Negative); Nitrite-Dipstick Negative (Negative); Occult Blood-Urine 250 /ul (Negative); Protein-Dipstick 15 mg/dl (Negative); Urine Bilirubin Dipstick Negative (Negative); Urine Clarity Sl. Cloudy (Clear); Urine Urobilinogen Normal (Normal)
[2021-03-03 13:34] LABS: White Blood Cells 50-100 SEEN /hpf (0-5)
[2021-03-03 13:35] LABS: Bacteria 1+ /hpf (None Seen); Mucous, Urine RARE /hpf (<or=2+); Red Blood Cells-Urine 0-5 SEEN /hpf (0-5); Squamous Epithelial Cells - UA 0-5 SEEN /hpf (5-10)
== END ==
PROVIDERS: PCP Internal Medicine; Referring Provider Physician Assistant Surgical; Visit Provider Physician Assistant Surgical
DX: R30.0 Dysuria (principal); M54.9 Dorsalgia, unspecified; R35.8 Other polyuria
CPT/HCPCS: 81001

== ENCOUNTER → 2021-03-27 14:30 | Outpatient (CLI) | payer MEDICARE, OTHER, SELFPAY ==
[2021-03-27 17:00] LABS: Anion Gap 4 (5-15); BUN 15 mg/dL (7-18); BUN/Creat Ratio 18.4 RATIO (10-20); Calcium,Total 9.6 mg/dL (8.5-10.1); Chloride 104 mmol/L (98-107); Creatinine, Serum 0.82 mg/dL (0.55-1.02); EST Glomerular Filtration Rate 74 mL/min (>60); Est Glom Filt Rate - Afr Amer 90 mL/min (>60); Glucose 79 mg/dL (74-106); Potassium 4.2 mmol/L (3.5-5.1); Sodium Level 139 mmol/L (136-145)
== END ==
PROVIDERS: PCP Internal Medicine; Referring Provider Internal Medicine; Visit Provider Internal Medicine
DX: I10 Essential (primary) hypertension (principal)
CPT/HCPCS: 36415; 80048

== ENCOUNTER 2021-09-09 11:26 | Outpatient (CLI) | payer MEDICARE, SELFPAY ==
[2021-09-09 12:15] LABS: Absolute Lymphocyte Count 1.65 X10^3/uL (0.83-4.51); Basophil# 0.03 X10^3/uL; Basophil% 0.6 % (0-1); Eosinophil# 0.26 X10^3/uL; Hematocrit 41.5 % (37-47); Hemoglobin 13.7 g/dL (12.0-15.0); Lymphocyte # 1.65 X10^3/ul (0.83-4.51); Lymphocyte % 31.5 % (19-41); Mean Corpuscular Hgb 27.1 pg (27.0-32.0); Mean Corpuscular Volume 82.2 fL (81-99); Mean Platelet Vol. 10.4 fl (6.2-12.0); Monocyte# 0.31 X10^3/uL; Monocyte% 5.9 % (0-10); NRBC Flagged by Analyzer 0 % (0-5); Neutrophil # 2.96 X10^3/uL (2.7-7.7); Neutrophil % 56.4 % (47-70); Platelet Count 252 K/mm3 (150-450); RBC Distribution Width CV 14.2 % (11.6-14.6); RBC Distribution Width SD 42.3 fl (35.1-43.9); Red Blood Count 5.05 M/mm3 (4.2-5.4); White Blood Count 5.2 K/mm3 (4.4-11.0)
[2021-09-09 12:46] LABS: Anion Gap 6 (5-15); BUN 17 mg/dL (7-18); Calcium,Total 8.9 mg/dL (8.5-10.1); Chloride 105 mmol/L (98-107); Creatinine, Serum 0.89 mg/dL (0.55-1.02); EST Glomerular Filtration Rate 67 mL/min (>60); Est Glom Filt Rate - Afr Amer 81 mL/min (>60); Glucose 105 mg/dL (74-106); Potassium 3.7 mmol/L (3.5-5.1); Sodium Level 138 mmol/L (136-145)
[2021-09-09 12:47] LABS: Vitamin D,25 Hydroxy 39.7 ng/mL
== END 2021-09-09 23:59 | disposition home or self-care (01) ==
LOC: BIMLAB 11:27
PROVIDERS: PCP Internal Medicine; Referring Provider Internal Medicine; Visit Provider Internal Medicine
DX: I10 Essential (primary) hypertension (principal); M85.80 Other specified disorders of bone density and structure, unspecified site
CPT/HCPCS: 36415; 80048; 82306; 85025

== ENCOUNTER → 2022-04-08 | Outpatient (CLI) | payer MEDICARE, SELFPAY ==
[2022-04-08 17:12] LABS: Anion Gap 7 (5-15); BUN 18 mg/dL (7-18); BUN/Creat Ratio 18.8 RATIO (10-20); Calcium,Total 9.3 mg/dL (8.5-10.1); Chloride 104 mmol/L (98-107); Creatinine, Serum 0.96 mg/dL (0.55-1.02); EST Glomerular Filtration Rate 61 mL/min (>60); Est Glom Filt Rate - Afr Amer 74 mL/min (>60); Glucose 98 mg/dL (74-106); Potassium 4.1 mmol/L (3.5-5.1); Sodium Level 139 mmol/L (136-145)
== END | disposition home or self-care (01) ==
LOC: BIMLAB 14:43
PROVIDERS: PCP Internal Medicine; Referring Provider Internal Medicine; Visit Provider Internal Medicine
DX: I10 Essential (primary) hypertension (principal)
CPT/HCPCS: 36415; 80048

== ENCOUNTER → 2022-04-20 | Outpatient (CLI) | payer MEDICARE, SELFPAY ==
[2022-04-20 16:10] LABS: Mucous, Urine 0 SEEN /hpf (<or=2+); Red Blood Cells-Urine 0 SEEN /hpf (0-5)
[2022-04-20 16:47] LABS: Glucose, Dipstick Normal (Normal); Ketone-Dipstick 5 mg/dl (Negative); Leukocyte Esterase-Dipstick 500 /ul (Negative); Nitrite-Dipstick Positive (Negative); Occult Blood-Urine 50 /ul (Negative); Protein-Dipstick 100 mg/dl (Negative); Urine Clarity Cloudy (Clear); Urine Urobilinogen 12 mg/dl (Normal)
[2022-04-20 17:19] LABS: Color, Urine SEE COMMENT BELOW (Yellow); Urine Bilirubin Dipstick 6 mg/dL (Negative)
[2022-04-20 18:10] LABS: Bacteria 2+ /hpf (None Seen); Squamous Epithelial Cells - UA 0-5 SEEN /hpf (5-10); White Blood Cells >100 SEEN /hpf (0-5)
== END | disposition home or self-care (01) ==
LOC: LABSPEC 16:08
PROVIDERS: PCP Internal Medicine; Referring Provider Physician Assistant; Visit Provider Physician Assistant
DX: R39.9 Unspecified symptoms and signs involving the genitourinary system (principal)
CPT/HCPCS: 81001; 87086; 87088; 87186

== ENCOUNTER → 2022-07-17 | Outpatient (CLI) | payer MEDICARE, SELFPAY ==
[2022-07-17 15:22] LABS: Absolute Lymphocyte Count 1.41 X10^3/uL (0.83-4.51); Absolute Neutrophil Count 3.7 X10^3/uL (2.0-7.7); Basophil# 0.02 X10^3/uL; Basophil% 0.3 % (0-1); Eosinophil# 0.42 X10^3/uL; Hematocrit 45.1 % (37-47); Hemoglobin 14.5 g/dL (12.0-15.0); Lymphocyte # 1.41 X10^3/ul (0.83-4.51); Lymphocyte % 23.7 % (19-41); Mean Corp Hgb Conc 32.2 g/dL (32-36); Mean Corpuscular Volume 83.8 fL (81-99); Mean Platelet Vol. 11.8 fl (6.2-12.0); Monocyte# 0.42 X10^3/uL; NRBC Flagged by Analyzer 0 % (0-5); Neutrophil # 3.67 X10^3/uL (2.7-7.7); Neutrophil % 61.7 % (47-70); Platelet Count 268 K/mm3 (150-450); RBC Distribution Width CV 14.1 % (11.6-14.6); RBC Distribution Width SD 42.7 fl (35.1-43.9); Red Blood Count 5.38 M/mm3 (4.2-5.4)
[2022-07-17 16:11] LABS: ALB/GLOB Ratio 1.1 RATIO (0.9-2.4); AST(SGOT) 15 U/L (15-37); Alanine Aminotransfer ALT/SGPT 26 U/L (13-56); Albumin, Serum 3.9 g/dL (3.2-5.0); Alkaline Phosphatase 52 U/L (45-117); Anion Gap 8 (5-15); BUN 19 mg/dL (7-18); BUN/Creat Ratio 17.6 RATIO (10-20); Calcium,Total 9.4 mg/dL (8.5-10.1); Chloride 104 mmol/L (98-107); Cholesterol 200 mg/dL (200); Creatinine, Serum 1.08 mg/dL (0.55-1.02); EST Glomerular Filtration Rate 53 mL/min (>60); Est Glom Filt Rate - Afr Amer 64 mL/min (>60); Globulin 3.5 g/dL (2.2-4.2); Glucose 94 mg/dL (74-106); High Density Lipoprotein 40 mg/dL; Potassium 3.7 mmol/L (3.5-5.1); Protein, Total 7.4 g/dL (6.4-8.2); Sodium Level 139 mmol/L (136-145); Thyroid Stim Hormone (TSH) 1.81 uIU/mL (0.358-3.74); Triglycerides 196 mg/dL; Very Low Density Lipoprotein 39 mg/dL (5-40)
== END | disposition home or self-care (01) ==
LOC: BIMLAB 13:21
PROVIDERS: PCP Internal Medicine; Referring Provider Internal Medicine; Visit Provider Internal Medicine
DX: I10 Essential (primary) hypertension (principal); E03.9 Hypothyroidism, unspecified
CPT/HCPCS: 36415; 80053; 80061; 84443; 85025

== ENCOUNTER → 2022-07-30 | Outpatient (CLI) | payer MEDICARE, SELFPAY ==
--- NOTE | 2022-07-30 13:05 | RAD_ITS ---
INDICATION: Lumbar radiculopathy, no known injury history of compression fracture thoracic spine 3 years prior to exam EXAMINATION/TECHNIQUE: X-RAY - XR Spine Lumbar Min 4 Views COMPARISON: None. FINDINGS: VERTEBRAE: Moderate wedge deformity of T12. 6 nonrib-bearing vertebral bodies with probable lumbarization of S1. No acute fracture. No spondylolisthesis. Preservation of the normal lumbar lordosis. DISCS: Degenerative disc space narrowing at L4-5 and L5-S1. INCLUDED ABDOMEN: Included bowel gas pattern is non-obstructive. RAD/L/S Spine Min 4 Views IMPRESSION: Chronic T12 compression fracture. Degenerative disc disease lower lumbar spine. Transitional vertebral body which may predispose to back pain. Electronically Signed: Silviano Zaman MD at 15:46 EST ,
== END | disposition home or self-care (01) ==
LOC: RAD 12:08
PROVIDERS: PCP Internal Medicine; Visit Provider Internal Medicine
DX: M51.36 Other intervertebral disc degeneration, lumbar region (principal); M51.84 Other intervertebral disc disorders, thoracic region; M54.16 Radiculopathy, lumbar region
CPT/HCPCS: 72110

== ENCOUNTER 2022-09-14 09:59 | Observation (INO) | payer MEDICARE, SELFPAY ==
[2022-09-14] VITALS (10 sets, daily range): BP systolic 115–135; BP diastolic 60–75; PULSE 73–89; RESP 16–20; TEMP 36.5–37; O2SAT 94–98; BMI 31.1; BMI 33.1
--- NOTE | 2022-09-14 10:17 | NURSING ---
STROKE ALERT CALLED
--- NOTE | 2022-09-14 10:19 | CT_ITS ---
We are attempting to reach an attending provider to discuss findings. An addendum with communication details will be sent when the communication is complete. STUDY: CTA HEAD AND NECK WITH CONTRAST REASON FOR EXAM: Female, 72 years old. Neuro deficit, acute, stroke suspected RADIATION DOSAGE (If Supplied By Facility): CTDIvol = ( 19.76 ) mGy, DLP = ( 640.52 ) mGycm TECHNIQUE: CT angiography was performed with a multi-detector CT scanner. Data acquisition was obtained from the skull base through the vertex following intravenous administration of IV 100mL Isovue-370. MIP images were reconstructed from the axial data set. Post-processing of the angiographic images was performed, with multiplanar reformation and 3D reconstruction. Individualized dose optimization techniques were used for this CT. COMPARISON: No relevant priors. FINDINGS: Normal bilateral petrous carotid arteries. Normal right cavernous carotid artery with a normal supraclinoid bifurcation. Normal left cavernous carotid artery with a normal supraclinoid bifurcation. Normal right A1 segments of the anterior cerebral artery. Normal left A1 segments of the anterior cerebral artery. Normal intact anterior communicating artery (ACOM). Normal bilateral A2 segments of the anterior cerebral arteries. Normal right M1 and M2 segments of the middle cerebral arteries, with a normal M1 bifurcation. Normal left M1 and M2 segments of the middle cerebral arteries, with a normal M1 bifurcation. Normal right posterior communicating artery (PCOM). Normal left posterior communicating artery (PCOM). Normal bilateral vertebral arteries. Normal basilar artery with a normal basilar bifurcation. The visualized bilateral superior cerebellar (SCA) arteries are normal. Normal bilateral P1, P2 and visualized P3 segments of the posterior cerebral arteries. There is no demonstrated aneurysm of the tunica-biloxi of Hernandez. There is no demonstrated abnormality of the visualized brain. AORTIC ARCH: Normal visualized aortic arch. Normal origins of the brachiocephalic, left common carotid, and left subclavian arteries. RIGHT CAROTID ARTERIES: Normal right common carotid artery (CCA). Normal right common carotid bulb. There is mild atherosclerotic plaque formation of the origin of the right internal carotid artery with less than 50% cross sectional diameter stenosis. Normal visualized cervical portion of the right internal carotid artery. Normal origin of the right external carotid artery (ECA). LEFT CAROTID ARTERIES: Normal left common carotid artery (CCA). Normal left common carotid bulb. Normal origin of the left internal carotid (ICA) artery without a hemodynamically significant stenosis. Normal visualized cervical portion of the left internal carotid artery. Normal origin of the left external carotid artery (ECA). VERTEBRAL ARTERIES: There is enhancement within the bilateral vertebral arteries with a small left vertebral artery, and a dominant right vertebral artery. CT/STROKE CTA Head AND Neck W/Con IMPRESSION: Minimal calcific plaque seen at the origin of the right internal carotid artery. Small left vertebral artery. Electronically Signed: Octavio Aviles MD at 11:05 EST ,
--- NOTE | 2022-09-14 10:19 | EKG12_ITS ---
Test Reason : STROKE TEAM Blood Pressure : / mmHG Vent. Rate : 078 BPM Atrial Rate : 078 BPM P-R Int : 190 ms QRS Dur : 140 ms QT Int : 444 ms P-R-T Axes : 047 -31 -05 degrees QTc Int : 506 ms Normal sinus rhythm Left axis deviation Right bundle branch block Inferior infarct , age undetermined , cannot be excluded Abnormal ECG Confirmed by WILLIAM SAL, KODI ([id number]), material expeditor KARIN NASCIMENTO ([id number]) on 09/15/2022 10:13:06 AM Referred By: Confirmed By:KODI THOMAS MD
--- NOTE | 2022-09-14 10:19 | CT_ITS ---
STUDY: CT HEAD STROKE PROTOCOL W/O CONTRAST INJECTION REASON FOR EXAM: Female, 72 years old. Neuro deficit, acute, stroke suspected RADIATION DOSAGE (If Supplied By Facility): CTDIvol = ( 44.99 ) mGy, DLP = ( 745.49 ) mGycm TECHNIQUE: Transaxial CT imaging of the brain was performed without administration of intravenous contrast material. Individualized dose optimization techniques were used for this CT. COMPARISON: No relevant priors. FINDINGS: Normal soft tissue structures. There is hyperostosis frontalis internus. There is mild cerebral atrophy with widening of the extra-axial spaces and ventricular dilatation. Normal white matter tracts of the cerebral hemispheres. Normal basal ganglia and thalami. Normal brainstem. Normal cerebellum. There is no intracranial hemorrhage. There are no findings of an acute ischemic infarction. Atherosclerotic calcification of the cavernous portions of the internal carotid arteries bilaterally. Normal visualized paranasal sinuses. ASPECT score: 10 CT/STROKE Brain/Head without Cont IMPRESSION: Chronic involutional changes of the brain. N.B. : The above Results were Read Back by Octavio Aviles MD to Dr Elsi MD, and understanding confirmed on 09/14/2022 10:30:39 (ET). Electronically Signed: Octavio Aviles MD at 10:31 EST ,
--- NOTE | 2022-09-14 10:19 | RAD_ITS ---
STUDY: X-RAY CHEST REASON FOR EXAM: Female, 72 years old. Neuro deficit, acute, stroke suspected TECHNIQUE: Single AP portable view of the chest. COMPARISON: Comparison is made with prior study dated 09/05/2019. FINDINGS: EKG lead are seen. The lungs are clear and expanded. There is no demonstrated pleural abnormality. Normal size heart. Normal mediastinum and pearl. Normal visualized pulmonary arteries. There is atherosclerotic tortuosity of the aortic arch and descending thoracic aorta. Normal visualized thoracic spine. Degenerative changes of the acromioclavicular joints bilaterally. There is no demonstrated abnormality of the visualized soft tissue structures of the upper abdomen. RAD/Chest 1 View IMPRESSION: No acute abnormalities present. Electronically Signed: Octavio Aviles MD at 11:56 EST ,
--- NOTE | 2022-09-14 10:22 | EDS_ITS ---
HPI History of Present Illness Chief Complaint: Dizziness Detail of Chief Complaint: Dizziness and feeling off balance Informant: patient Narrative Narrative: Patient presents to the emergency department complaint of feeling off balance that she noticed this morning when she woke up. Patient states that she felt somewhat woozy when she first woke up around 8:30 AM. She got up to use the restroom and felt very off balance and like she was going to fall. She denies vertiginous symptoms of a spinning sensation. Patient also states that she think she woke up in the middle the night at some point and did not feel well but just went back to bed. Last known well was before going to bed last evening. Patient does have a slight fullness in her head. She states that she hit her head about a week ago on the garage door but had no loss of consciousness. Patient has history of vertigo but states this feels very different. She does have history of hypertension for which she does take blood pressure medication. Patient also with history of hypothyroidism. Patient denies recent illness. Prior similar symptoms: No PFSH PFSH Medical History (Updated 09/14/22 @ 11:[address] Km Alberts, DO) Abnormal ECG Anxiety and depression Chest pain Cholelithiasis with chronic cholecystitis Chronic back pain Chronic neck pain Compression fracture of body of thoracic vertebra Depression Eosinophilic esophagitis Fibromyalgia GERD (gastroesophageal reflux disease) Health care maintenance History of breast cancer HTN (hypertension), benign Hypersomnia Hypothyroidism Lumbar radiculopathy Occipital neuralgia Osteopenia Preop cardiovascular exam Vitamin D deficiency Home Medications omeprazole 40 mg capsule,delayed release 40 mg PO 1700 gerd #90 caps 01/01/22 [Rx Last Taken Unknown] paroxetine HCl 40 mg tablet 40 mg PO DAILY #90 tabs 01/01/22 [Rx Last Taken 09/13/22] amitriptyline 25 mg tablet 25 mg PO QHS #90 tabs 03/31/22 [Rx Last Taken 09/13/22] indapamide 1.25 mg tablet 1.25 mg PO QAM htn #90 tabs 03/31/22 [Rx Last Taken 09/13/22] baclofen 10 mg tablet 10 mg PO TID PRN muscle spasm #90 tabs 04/08/22 [Rx Last Taken Unknown] atenolol 50 mg tablet 50 mg PO DAILY heart rate/Bp #90 tabs 04/30/22 [Rx Last Taken 09/13/22] levothyroxine 150 mcg tablet 150 mcg PO DAILY #90 tabs 08/04/22 [Rx Last Taken 09/13/22] acetaminophen 500 mg tablet 1,000 mg PO DAILY PRN Pain 09/14/22 [History Last Taken Unknown] alendronate 70 mg tablet (Fosamax) 70 mg PO GARZA 09/14/22 [History Last Taken 08/30/22] cholecalciferol (vitamin D3) 1,250 mcg (50,000 unit) capsule 1,250 mcg PO GARZA 09/14/22 [History Last Taken 08/30/22] Allergy/AdvReac Type Severity Reaction Status Date / Time ciprofloxacin [From Cipro] Allergy Intermediate hives Verified 09/14/22 10:02 milk [dairy] Allergy Food Verified 09/14/22 10:02 Allergy Family History Mother Breast cancer Father Cancer Bone and Bladder CA Alcoholism Grandmother Heart disease CVA (cerebral vascular accident) Sister Heart disease Cancer lung COPD (chronic obstructive pulmonary disease) Multiple sclerosis Brother Alcoholism Other Hypertension Surgical History History of arthroscopic knee surgery History of History of fusion of cervical spine Hx of cholecystectomy Status post breast lumpectomy Social History Smoking Status: Former smoker quit date: 08/02/77 Tobacco: How many years used: 5 second hand exposure: No alcohol intake: current alcohol intake frequency: a few times a month substance use type: does not use what type of physical activity do you participate in: none ROS ROS ED Review of Systems ROS Unobtainable: other Constitutional Constitutional ED: Reports lethargy; Denies chills, fever(s), sweats or weight loss Eyes Eyes: Denies blurry vision, change in vision or diplopia ENT ENT ED: Denies rhinorrhea or sore throat Cardiovascular Cardiovascular: Denies chest pain, orthopnea or racing heartbeat Respiratory/Chest Respiratory/Chest: Denies cough, dyspnea, dyspnea on exertion, orthopnea or sputum Gastrointestinal Gastrointestinal: Denies abdominal pain, diarrhea, nausea or vomiting Genitourinary Genitourinary ED: Denies dysuria, hematuria or urinary frequency Musculoskeletal Musculoskeletal: Denies arthralgias, back pain, myalgias or neck pain Integumentary Denies abscess, Abrasions or rash Neurologic Neurologic: Reports other Details: Dizziness and feeling off balance ; Denies headache(s) or weakness Psychiatric Psychiatric: Denies anxiety, depression or suicidal thoughts Endocrine Endocrinology: Denies polydipsia, polyphagia or polyuria Hematologic/Lymphatic Hematologic/Lymphatic: Denies easy bleeding, easy bruising or lymphadenopathy Allergic/Immunologic Allergic/Immunologic ED: Denies mouth swelling, tongue swelling or urticaria EXAM Physical Exam Const Vital Signs: 09/14/22 10:03 09/14/22 10:12 09/14/22 10:29 Temperature 97.7 F L Temperature Source Temporal Pulse Rate 77 Pulse Rate [Lying] Pulse Rate [Sitting (for 1 minute prior to obtaining)] Pulse Rate [Standing (for 1 minute prior to obtaining)] Respiratory Rate 18 Respiratory Effort Normal Non-Labored Respiratory Pattern Normal Blood Pressure 116/63 Blood Pressure [Lying] Blood Pressure [Sitting (for 1 minute prior to obtaining)] Blood Pressure [Standing (for 1 minute prior to obtaining)] Blood Pressure Mean 80 Blood Pressure Mean [Lying] Blood Pressure Mean [Sitting (for 1 minute prior to obtaining)] Blood Pressure Mean [Standing (for 1 minute prior to obtaining)] Pulse Ox 98 98 Oxygen Delivery Method Room Air Room Air 09/14/22 10:29 09/14/22 11:00 09/14/22 11:18 Temperature Temperature Source Pulse Rate 89 76 Pulse Rate [Lying] 73 Pulse Rate [Sitting (for 1 minute prior to obtaining)] 80 Pulse Rate [Standing (for 1 minute prior to obtaining)] 88 Respiratory Rate 16 17 Respiratory Effort Respiratory Pattern Blood Pressure 135/62 H 124/68 H Blood Pressure [Lying] 119/63 Blood Pressure [Sitting (for 1 minute prior to obtaining)] 119/75 Blood Pressure [Standing (for 1 minute prior to obtaining)] 118/66 Blood Pressure Mean 86 86 Blood Pressure Mean [Lying] 81 Blood Pressure Mean [Sitting (for 1 minute prior to obtaining)] 89 Blood Pressure Mean [Standing (for 1 minute prior to obtaining)] 83 Pulse Ox 98 98 Oxygen Delivery Method Room Air Room Air Positive well nourished and well developed General Appearance ED: well developed and NAD HEENT Reports TM's clear and moist mucous membranes normocephalic and atraumatic; Negative for trauma or tenderness Tympanic Membrane ED: Yes TM's clear Eyes PERRL and EOMs intact bilaterally General Eye ED: Negative for pale conjunctiva or scleral icterus Neck no lymphadenopathy, supple and no JVD General: Negative for tenderness Chest Wall inspection of chest normal and palpation of chest normal Chest: Negative for tenderness Resp normal respiratory effort and clear to auscultation bilaterally Effort and Inspection: Negative for respiratory distress or pain with movement Auscultation: Negative for rhonchi, wheezes or diminished lung sounds Cardio regular rate, regular rhythm, S1 normal heart sound, S2 normal heart sound and no murmurs Peripheral Pulses: pulses 2+ throughout GI normal to inspection, nondistended, normoactive bowel sounds, soft to palpation, non-tender, non-distended and no masses Back/Spine no CVA tenderness and no thoracic nor lumbar tenderness Extremity normal to inspection General Extremety ED: Negative for edema General Extremity: Negative for edema Neuro oriented x3, CN's II-XII intact bilaterally, no sensory deficits noted and gait normal Neuro Narrative: Finger-nose and heel gibson testing within normal limits, negative Romberg, negative pronator drift, fundi benign Sensorium / Orientation: awake, alert, oriented to person, oriented to place and oriented to time Motor Exam: strength 5/5 throughout and strength abnormal Psych mental status grossly normal Skin no rashes or lesions noted and no wounds MDM MDM MDM Narrative Medical decision making narrative: Patient presents with dizziness with symptoms that are relieved if started in the middle the night. There is no nystagmus on her exam and she states this is different than her vertigo that she has had in the past. Patient describes a sensation of falling and feeling off balance. No other focal deficits noted on initial exam however was concerned about possibility of stroke therefore stroke team was called. Patient had a normal CT scan of the brain as well as CTA of head and neck. She was evaluated by stroke neurologist who agrees patient not thrombolytic candidate and recommended admission for further work-up of her dizziness. Chemistries unremarkable. CBC with differential unremarkable. EKG showed a sinus rhythm with a rate of 73 bpm with a right bundle branch block and her troponin was normal. Chest x-ray unremarkable. I did order orthostatics which are pending. Also ordered a milligram of Ativan IV to see if this will help improve her symptoms. This time etiology of her dizziness is unclear. We will discussed with hospitalist to evaluate patient for admission. In the differential would be central vertigo versus peripheral vertigo versus stroke. Lab Data Attestation: I reviewed the patient's lab results. Labs: Laboratory Results - last 24 hr 09/14/22 09/14/22 09/14/22 10:15 10:15 10:15 WBC 4.7 RBC 5.04 Hgb 14.0 Hct 41.6 MCV 82.5 MCH 27.8 MCHC 33.7 RDW Std Deviation 42.7 RDW Coeff of Annie 14.4 Plt Count 214 MPV 10.7 Immature Gran % (Auto) 0.600 Neut % (Auto) 53.3 Lymph % (Auto) 33.1 Lipscomb % (Auto) 6.8 Eos % (Auto) 5.8 H Baso % (Auto) 0.4 Absolute Neuts (auto) 2.5 Absolute Lymphs (auto) 1.55 Nucleated RBC % 0 PT 15.4 H INR 1.3 APTT 27.8 Sodium 140 Potassium 3.7 Chloride 105 Carbon Dioxide 30.0 Anion Gap 5 BUN 16 Creatinine 0.97 Estim Creat Clear Calc 50.52 Est GFR (MDRD) Af Amer 73 Est GFR (MDRD) Non-Af 60 BUN/Creatinine Ratio 16.5 Glucose 115 H Calcium 9.1 Troponin I High Sens 4 Radiography Diagnostic Testing: Clinical Impression(s) from Imaging Studies Head/Neck CTA 09/14/22 10:19 IMPRESSION: Minimal calcific plaque seen at the origin of the right internal carotid artery. Small left vertebral artery. Electronically Signed: Octavio Aviles MD at 11:05 EST , ADDENDUM: 09/14/22 1118 IMPRESSION: Minimal calcific plaque seen at the origin of the right internal carotid artery. Small left vertebral artery. N.B. : The above Results were Read Back by Octavio Aviles MD to Dr Elsi MD, and understanding confirmed on 09/14/2022 11:11:43 (ET). Electronically Signed: Octavio Aviles MD at 11:05 EST , 1 view chest x-ray obtained interpreted by myself as no acute disease process without evidence of infiltrate or pneumothorax. Official report from radiology pending. EKG Initial EKG: Attestation: I personally reviewed and interpreted this EKG as follows: Comments: Sinus rhythm with a rate of 78 bpm with a right bundle branch block Prior EKG tracings: available for review Prior: Changed Discharge Plan Dx/Rx/DC Orders Clinical Impression: Dizziness, Dysequilibrium, History of hypertension, Right bundle branch block Disposition Disposition: Acute Care Hospital [facility]
[2022-09-14 10:30] LABS: Absolute Lymphocyte Count 1.55 X10^3/uL (0.83-4.51); Absolute Neutrophil Count 2.5 X10^3/uL (2.0-7.7); Basophil# 0.02 X10^3/uL; Basophil% 0.4 % (0-1); Eosinophil# 0.27 X10^3/uL; Eosinophils% 5.8 % (0-5); Hematocrit 41.6 % (37-47); Lymphocyte # 1.55 X10^3/ul (0.83-4.51); Lymphocyte % 33.1 % (19-41); Mean Corp Hgb Conc 33.7 g/dL (32-36); Mean Corpuscular Hgb 27.8 pg (27.0-32.0); Mean Corpuscular Volume 82.5 fL (81-99); Mean Platelet Vol. 10.7 fl (6.2-12.0); Monocyte# 0.32 X10^3/uL; Monocyte% 6.8 % (0-10); NRBC Flagged by Analyzer 0 % (0-5); Neutrophil # 2.49 X10^3/uL (2.7-7.7); Neutrophil % 53.3 % (47-70); Platelet Count 214 K/mm3 (150-450); RBC Distribution Width CV 14.4 % (11.6-14.6); RBC Distribution Width SD 42.7 fl (35.1-43.9); Red Blood Count 5.04 M/mm3 (4.2-5.4); White Blood Count 4.7 K/mm3 (4.4-11.0)
[2022-09-14 10:44] LABS: International Normalized Ratio 1.3; Prothrombin Time (Protime)PT. 15.4 SECONDS (11.7-14.9)
[2022-09-14 10:45] LABS: Anion Gap 5 (5-15); BUN 16 mg/dL (7-18); BUN/Creat Ratio 16.5 RATIO (10-20); Calcium,Total 9.1 mg/dL (8.5-10.1); Chloride 105 mmol/L (98-107); Creatinine, Serum 0.97 mg/dL (0.55-1.02); EST Glomerular Filtration Rate 60 mL/min (>60); Est Glom Filt Rate - Afr Amer 73 mL/min (>60); Estimated Creatinine Clearance 50.52 ml/min; Glucose 115 mg/dL (74-106); Partial Thromboplast Time 27.8 Seconds (24.1-36.2); Potassium 3.7 mmol/L (3.5-5.1); Sodium Level 140 mmol/L (136-145); Troponin-I HS 4 pg/mL (3.0-54.0)
[2022-09-14] MEDS: 0.9% Normal Saline 1,000 ML 100 ML IV (10:49)
--- NOTE | 2022-09-14 10:59 | CM.ED ---
SW Note SW Referral: Case Find Reason for SW Referral: Stroke Alert SW met with patient and her 3 family members in the ED room. Emotional support provided. SW remains available if needs arise. Vanessa ALMAGUER
[2022-09-14] MEDS: LORazepam 2 MG/ML Syringe 1 MG IV (11:17)
--- NOTE | 2022-09-14 11:29 | NURSING ---
DR ROBERTO DALLAS
--- NOTE | 2022-09-14 11:35 | NURSING ---
CLOVER MEJIA DIZZINESS, DISEQUILIBRIUM
--- NOTE | 2022-09-14 11:37 | HP.PCM.HOS_ITS ---
HPI - General General Date of Admission: 09/14/22 Date of Service: 09/14/22 Chief Complaint: Dizziness, loss of balance, unsteady today HPI Narrative MILTON COKER, is a 72 F was brought by EMS for dizziness, lightheadedness, unsteady, could not stand up or walk when she woke up today. She denies any one-sided weakness, numbness, tingling, loss of his speech or language deficit, dysarthria, dysphagia, loss of vision/hemianopia or quadrantanopia or confusion or loss of consciousness. She had a fall about a week ago and hit her head a fter she missed the step and did not see the step. It was not because of dizziness or vertigo at that time. Patient has history of vertigo for last few years and is taking Antivert. Today she denies vertigo. Denies fever or chill, lower urinary tract symptoms, vomiting or GI bleed. Has mild dizziness. In ED, twelve-lead EKG shows normal sinus rhythm, RBBB, LAD, LAFB at 78. On, QTc 506 ms. Previous EKG Was similar sinus rhythm. Chest x-ray no acute abnormality. She had stroke alert called and teleneurologist was consulted. CTA head and neck shows minimal calcific plaque at origin of right ICA. Small left vertebral artery. [facility] teleneurologist saw the patient. LKW last night. Recommended admission. [facility] Medical History (Updated 09/14/22 @ 11:[address] Km Alberts, ) Abnormal ECG Anxiety and depression Chest pain Cholelithiasis with chronic cholecystitis Chronic back pain Chronic neck pain Compression fracture of body of thoracic vertebra Depression Eosinophilic esophagitis Fibromyalgia GERD (gastroesophageal reflux disease) Health care maintenance History of breast cancer HTN (hypertension), benign Hypersomnia Hypothyroidism Lumbar radiculopathy Occipital neuralgia Osteopenia Preop cardiovascular exam Vitamin D deficiency Home Medications omeprazole 40 mg capsule,delayed release 40 mg PO 1700 gerd #90 caps 01/01/22 [Rx Last Taken Unknown] paroxetine HCl 40 mg tablet 40 mg PO DAILY #90 tabs 01/01/22 [Rx Last Taken 09/13/22] amitriptyline 25 mg tablet 25 mg PO QHS #90 tabs 03/31/22 [Rx Last Taken 09/13/22] indapamide 1.25 mg tablet 1.25 mg PO QAM htn #90 tabs 03/31/22 [Rx Last Taken 09/13/22] baclofen 10 mg tablet 10 mg PO TID PRN muscle spasm #90 tabs 04/08/22 [Rx Last Taken Unknown] atenolol 50 mg tablet 50 mg PO DAILY heart rate/Bp #90 tabs 04/30/22 [Rx Last Taken 09/13/22] levothyroxine 150 mcg tablet 150 mcg PO DAILY #90 tabs 08/04/22 [Rx Last Taken 09/13/22] acetaminophen 500 mg tablet 1,000 mg PO DAILY PRN Pain 09/14/22 [History Last Taken Unknown] alendronate 70 mg tablet (Fosamax) 70 mg PO GARZA 09/14/22 [History Last Taken 08/30/22] cholecalciferol (vitamin D3) 1,250 mcg (50,000 unit) capsule 1,250 mcg PO GARZA 09/14/22 [History Last Taken 08/30/22] Allergy/AdvReac Type Severity Reaction Status Date / Time ciprofloxacin [From Cipro] Allergy Intermediate hives Verified 09/14/22 10:02 milk [dairy] Allergy Food Verified 09/14/22 10:02 Allergy Family History Mother Breast cancer Father Cancer Bone and Bladder CA Alcoholism Grandmother Heart disease CVA (cerebral vascular accident) Sister Heart disease Cancer lung COPD (chronic obstructive pulmonary disease) Multiple sclerosis Brother Alcoholism Other Hypertension Surgical History History of arthroscopic knee surgery History of History of fusion of cervical spine Hx of cholecystectomy Status post breast lumpectomy Social History Smoking Status: Former smoker quit date: 08/02/77 Tobacco: How many years used: 5 second hand exposure: No alcohol intake: current alcohol intake frequency: a few times a month substance use type: does not use what type of physical activity do you participate in: none ROS ROS Narrative 14 system ROS reviewed. Constitutional: Reports fatigue, dizziness as described in HPI. No fever. HEENT: Has not seen ENT doctor in past. Chronic dizziness and vertigo. Reports systems reviewed and no addt'l complaints, except as documented Respiratory/Chest: Denies chest pain, shortness of breath at rest or with exertion Gastrointestinal: Denies coffee ground emesis, hematemesis or vomiting Genitourinary: Denies burning urination or new urinary tract symptoms Musculoskeletal: Chronic bilateral knee arthritis right worse than left, complain of sometimes locking, stiffness. Neurologic: Denies seizure-like activity. Rest as described in HPI skin: No ulcer. No rash Endocrinology: Reports systems reviewed and no addt'l complaints, except as documented Hematologic/Lymphatic: Reports systems reviewed and no addt'l complaints, except as documented Rest 14 ROS are negative except as mentioned in HPI Vital Signs Vital Signs Vital Signs: 09/14/22 10:03 09/14/22 10:12 09/14/22 10:29 Temperature 97.7 F L Temperature Source Temporal Pulse Rate 77 Pulse Rate [Lying] Pulse Rate [Sitting (for 1 minute prior to obtaining)] Pulse Rate [Standing (for 1 minute prior to obtaining)] Respiratory Rate 18 Respiratory Effort Normal Non-Labored Respiratory Pattern Normal Blood Pressure 116/63 Blood Pressure [Lying] Blood Pressure [Sitting (for 1 minute prior to obtaining)] Blood Pressure [Standing (for 1 minute prior to obtaining)] Blood Pressure Mean 80 Blood Pressure Mean [Lying] Blood Pressure Mean [Sitting (for 1 minute prior to obtaining)] Blood Pressure Mean [Standing (for 1 minute prior to obtaining)] Pulse Ox 98 98 Oxygen Delivery Method Room Air Room Air 09/14/22 10:29 09/14/22 11:00 09/14/22 11:18 Temperature Temperature Source Pulse Rate 89 76 Pulse Rate [Lying] 73 Pulse Rate [Sitting (for 1 minute prior to obtaining)] 80 Pulse Rate [Standing (for 1 minute prior to obtaining)] 88 Respiratory Rate 16 17 Respiratory Effort Respiratory Pattern Blood Pressure 135/62 H 124/68 H Blood Pressure [Lying] 119/63 Blood Pressure [Sitting (for 1 minute prior to obtaining)] 119/75 Blood Pressure [Standing (for 1 minute prior to obtaining)] 118/66 Blood Pressure Mean 86 86 Blood Pressure Mean [Lying] 81 Blood Pressure Mean [Sitting (for 1 minute prior to obtaining)] 89 Blood Pressure Mean [Standing (for 1 minute prior to obtaining)] 83 Pulse Ox 98 98 Oxygen Delivery Method Room Air Room Air Weight Weight: 192 lb 10.944 oz Body Mass Index (BMI) 31.1 Physical Exam Narrative General: Alert, Oriented x3, Cooperative, BMI 33.2 kg/m?, obesity grade 1 HEENT: Hallpike test negative, atraumatic, PERRLA, EOMI. No tenderness over external ear or mastoid process. Oral: Oral mucosa moist. No Gingival or Mucosal Lesions/ Ulcerations Neck: Supple, No JVD, Negative Carotid Bruits Lungs: Air entry diminished in bilateral lung bases. No crepitation/rhonchi Cardiovascular: Regular rate, Regular Rhythm, Normal S1, Normal S2, No murmurs Abdomen: Bowel Sounds Present, Soft, Non Tender, Non-Distended : No renal angle tenderness. No suprapubic tenderness. Extremities: No edema, Capillary Refill Less than 3 Seconds Skin: No rashes, No breakdown Musculoskeletal: Bilateral knee arthritis. No Tenderness to Palpation of Joints or Extremities, muscle strength 5/5 at major joints. Neurological: Cranial nerves II-XII grossly intact, DTR 2+/4, heel gibson and finger-nose test normal. NIH stroke scale 0. Psych/Mental Status: Normal Affect, Appropriate. Results Lab / Micro Data Result Diagrams: 09/14/22 10:15 09/14/22 10:15 Labs: Laboratory Results - last 24 hr 09/14/22 10:15: WBC 4.7, RBC 5.04, Hgb 14.0, Hct 41.6, MCV 82.5, MCH 27.8, MCHC 33.7, RDW Std Deviation 42.7, RDW Coeff of Annie 14.4, Plt Count 214, MPV 10.7, Immature Gran % (Auto) 0.600, Neut % (Auto) 53.3, Lymph % (Auto) 33.1, Traill % (Auto) 6.8, Eos % (Auto) 5.8 H, Baso % (Auto) 0.4, Absolute Neuts (auto) 2.5, Absolute Lymphs (auto) 1.55, Nucleated RBC % 0 09/14/22 10:15: PT 15.4 H, INR 1.3, APTT 27.8 09/14/22 10:15: Sodium 140, Potassium 3.7, Chloride 105, Carbon Dioxide 30.0, Anion Gap 5, BUN 16, Creatinine 0.97, Estim Creat Clear Calc 50.52, Est GFR (MDRD) Af Amer 73, Est GFR (MDRD) Non-Af 60, BUN/Creatinine Ratio 16.5, Glucose 115 H, Calcium 9.1, Troponin I High Sens 4 Radiology Impression Head/Neck CTA 09/14/22 10:19 IMPRESSION: Minimal calcific plaque seen at the origin of the right internal carotid artery. Small left vertebral artery. Electronically Signed: Octavio Aviles MD at 11:05 EST , ADDENDUM: 09/14/22 1118 IMPRESSION: Minimal calcific plaque seen at the origin of the right internal carotid artery. Small left vertebral artery. N.B. : The above Results were Read Back by Octavio Aviles MD to Dr Elsi MD, and understanding confirmed on 09/14/2022 11:11:43 (ET). Electronically Signed: Octavio Aviles MD at 11:05 EST , Assessment & Plan Assessment/Plan (1) Dizziness: (2) Dysequilibrium: PLAN: Plan This is 72-year-old female with history of chronic dizziness and vertigo admitted for dizziness, loss of balance, and disequilibrium 1. Acute on chronic dizziness, loss of equilibrium, rule out TIA/stroke: Patient is being admitted in PCU. Stroke order set with MRI brain ordered. Orthostatic test was negative. If MRI shows positive stroke we will do echo. BP and glucose monitoring as per stroke guidelines. PT OT and speech evaluation ordered. NIHSS monitoring. Dizziness is better. 2. Hypertension: Blood pressure is in normal range. Patient on atenolol, and indapamide continue home antihypertensive medications. 3 hypothyroidism: Continue levothyroxine. TSH ordered for tomorrow a.m. 4 history of breast cancer: Status post lumpectomy, stable, in remission. 5 depression: Patient on Paxil and amitriptyline, low-dose. 6 Bilateral knee arthritis with muscle spasm: Patient on baclofen, dose decreased to 5 mg 3 times daily as needed for spasm. DVT prophylaxis: Subcu Lovenox. Living will/advanced directive/end of life care: Patient does not have living will or advanced directive. After discussion of benefits/risks procedures involved with full code, DNR CC arrest and DNR CC, the patient and her opted for full code. Patient does want artificial life support including intubation, tube feed, ventilator and/chest compression, central venous catheter, vasopressor and DC shock if needed Total time spent in [id number] encounter in discussion of advanced directive 16 minutes. Charges/Coding Visit Charges Inpatient E&M: 31215 Init Hosp L3 Procedures Hospitalists Procedures: 67733 Advncd Care Plan 30 Min
[2022-09-14 11:59] LABS: Magnesium 2.4 mg/dL (1.6-2.6)
[2022-09-14] MEDS: Aspirin 81 MG TAB.CHEW PO (13:40)
[2022-09-14] MEDS: Lactated Ringers 1,000 ML 100 ML IV (13:40)
[2022-09-14] MEDS: Enoxaparin 40 MG/0.4 ML Syringe SC (16:35)
[2022-09-14] MEDS: 0.9% Saline Lock 10 ML Syringe IV (16:35)
[2022-09-14] MEDS: Pantoprazole Sodium 40 MG Tablet PO (16:38)
--- NOTE | 2022-09-14 18:35 | MRI_ITS ---
EXAM: MR HEAD WITHOUT INTRAVENOUS CONTRAST CLINICAL INDICATION: DIZZINESS, TIA TECHNIQUE: Multiplanar and multisequence MR images of the brain were obtained without intravenous contrast. This report was created using [employer] report generation technology. COMPARISON: CT and CTA of the same day. FINDINGS: LIMITATIONS: Mild motion artifacts. BRAIN AND EXTRA-AXIAL SPACES: Unremarkable. No intra- or extra-axial hemorrhage. No evidence of acute infarct. No intracranial mass or mass effect. There is preservation of the castrejon/white matter interface. Posterior fossa structures are unremarkable. Ventricles are appropriate for age. No hydrocephalus. Basal cisterns are patent. No restricted diffusion. Minimal deep periventricular white matter changes and minimal scattered centrum semiovale white matter changes in SELLA: Unremarkable. Normal sella turcica, pituitary gland, infundibular stalk, optic chiasm and hypothalamus. AUDITORY SYSTEM: Unremarkable. The internal auditory canals are patent. BONES/JOINTS: Unremarkable. No discrete lytic or blastic abnormalities. SINUSES: Minimal mucosal thickening in ethmoid sinuses. MASTOID AIR CELLS: Unremarkable as visualized. Clear. ORBITS: Unremarkable as visualized. Both globes, extraocular muscles, optic nerves and retrobulbar fat appear unremarkable. VASCULATURE: Unremarkable as visualized. Normal flow voids in the major intracranial circulation. MRI/Brain without Contrast IMPRESSION: No acute intracranial abnormality. No evidence of acute CVA. Minimal chronic changes. Electronically Signed: Arcelia Wu MD at 22:08 EST ,
[2022-09-14] MEDS: Atorvastatin Calcium 80 MG Tablet PO (21:37)
[2022-09-14] MEDS: Amitriptyline 25 MG Tablet PO (21:38)
[2022-09-15 00:15] VITALS: BP 127/53; PULSE 73; RESP 18; TEMP 36.6; O2SAT 96
[2022-09-15 03:40] VITALS: BP 123/67; PULSE 72; RESP 16; TEMP 36.7; O2SAT 96
[2022-09-15] MEDS: Levothyroxine 150 MCG Tablet PO (05:05)
[2022-09-15 06:48] LABS: Absolute Neutrophil Count 2.9 X10^3/uL (2.0-7.7); Basophil# 0.02 X10^3/uL; Basophil% 0.4 % (0-1); Eosinophils% 3.8 % (0-5); Hematocrit 39.7 % (37-47); Hemoglobin 12.8 g/dL (12.0-15.0); Lymphocyte % 32.1 % (19-41); Mean Corp Hgb Conc 32.2 g/dL (32-36); Mean Corpuscular Hgb 26.7 pg (27.0-32.0); Mean Corpuscular Volume 82.9 fL (81-99); Monocyte# 0.44 X10^3/uL; Monocyte% 8.3 % (0-10); NRBC Flagged by Analyzer 0 % (0-5); Neutrophil # 2.92 X10^3/uL (2.7-7.7); Platelet Count 231 K/mm3 (150-450); RBC Distribution Width CV 14.6 % (11.6-14.6); RBC Distribution Width SD 44.2 fl (35.1-43.9); Red Blood Count 4.79 M/mm3 (4.2-5.4); White Blood Count 5.3 K/mm3 (4.4-11.0)
[2022-09-15 07:27] LABS: Anion Gap 7 (5-15); BUN 14 mg/dL (7-18); Calcium,Total 8.9 mg/dL (8.5-10.1); Chloride 105 mmol/L (98-107); Cholesterol 148 mg/dL (200); Creatinine, Serum 0.93 mg/dL (0.55-1.02); EST Glomerular Filtration Rate 63 mL/min (>60); Est Glom Filt Rate - Afr Amer 77 mL/min (>60); Estimated Creatinine Clearance 46.56 ml/min; Glucose 114 mg/dL (74-106); High Density Lipoprotein 36 mg/dL; Potassium 3.4 mmol/L (3.5-5.1); Sodium Level 140 mmol/L (136-145); Thyroid Stim Hormone (TSH) 1.52 uIU/mL (0.358-3.74); Triglycerides 134 mg/dL; Very Low Density Lipoprotein 27 mg/dL (5-40)
[2022-09-15 09:53] VITALS: BP 121/46; PULSE 73; RESP 18; TEMP 36.6; O2SAT 95
[2022-09-15] MEDS: Aspirin 81 MG TAB.CHEW PO (09:56)
[2022-09-15] MEDS: Paroxetine 20 MG Tablet 40 MG PO (09:57)
[2022-09-15] MEDS: Atenolol 50 MG Tablet PO (09:57)
[2022-09-15] MEDS: Indapamide 2.5 MG Tablet 1.25 MG PO (09:57)
[2022-09-15] MEDS: Enoxaparin 40 MG/0.4 ML Syringe SC (09:57)
[2022-09-15] MEDS: 0.9% Saline Lock 10 ML Syringe IV ×2 (09:59→11:29)
--- NOTE | 2022-09-15 10:01 | DCINST_ITS ---
Discharge Instructions Diet Discharge Diet: No restrictions Activity Discharge Activity: Return to Normal Activity Weight Bearing Status: Weight bearing as tolerated Dressing / Incision Call your doctor if you observe: Fever of 101 or Higher, Coldness, Increased Pain, Numbness or Tingling, Change in Color, Inability to urinate, Inability to have a bowel movement, Using more than 1 pad per hour, Shortness of breath, Dizziness, Fainting spells, Swelling in the ankles, Chest pain, Prolonged hiccupping, Increased palpitations (irregular heartbeat) and Calf discomfort Follow Up Care When: IN 2 WEEKS Test Results: Test results from this visit will be discussed in further detail at your follow- up appointment, if applicable. Discharge Plan Admission Admit Date/Time: 09/14/22 11:29 Primary Reason for Your Visit: Dizziness, gait Disequilibrium Attending Provider: Abraham Yepez Primary Care Provider: Rohith Alexandre Discharge Orders/Prescriptions Prescriptions: New meclizine 12.5 mg Tablet 12.5 mg PO 4X/DAY PRN PRN (Reason: DIZZINESS/VERTIGO) Qty: 30 0RF Continued omeprazole 40 mg capsule,delayed release(DR/EC) 40 mg PO 1700 Qty: 90 3RF paroxetine HCl 40 mg tablet 40 mg PO DAILY Qty: 90 3RF baclofen 10 mg tablet 10 mg PO TID PRN (Reason: muscle spasm) Qty: 90 2RF alendronate [Fosamax] 70 mg tablet 70 mg PO GARZA cholecalciferol (vitamin D3) 1,250 mcg (50,000 unit) capsule 1,250 mcg PO GARZA acetaminophen 500 mg Tablet 1,000 mg PO DAILY PRN (Reason: Pain) indapamide 1.25 mg tablet 1.25 mg PO QAM Qty: 90 1RF amitriptyline 25 mg tablet 25 mg PO QHS Qty: 90 1RF atenolol 50 mg tablet 50 mg PO DAILY Qty: 90 1RF levothyroxine 150 mcg tablet 150 mcg PO DAILY Qty: 90 1RF Referrals / Follow Up: Rohith Alexandre MD [Primary Care Provider] - Liam Engle MD [Med Staff - Active Staff] - Within 2 Weeks (dizziness/vestibular dysfunction) Disposition Disposition (needs filled in before D/C Order can be placed): Home, Self Care
--- NOTE | 2022-09-15 11:07 | DS.PCM_ITS ---
Providers Date of Admission: 09/14/22 Date of Discharge: 09/15/22 Primary Care Physician: Dr. Rohith Alexandre MD Reason For Visit: DIZZINESS, NEAR SYNCOPE Diagnosis Discharge Diagnosis (1) Dizziness: Status: Acute Code(s): R42 - Dizziness and giddiness (2) Dysequilibrium: Status: Acute Code(s): R42 - Dizziness and giddiness Plan This is 72-year-old female with history of chronic dizziness and vertigo admitted for dizziness, loss of balance, and disequilibrium 1. Acute on chronic dizziness, loss of equilibrium, rule out TIA/stroke: Patient is being admitted in PCU. Stroke order set with MRI brain ordered. Orthostatic test was negative. If MRI shows positive stroke we will do echo. BP and glucose monitoring as per stroke guidelines. PT OT and speech evaluation ordered. NIHSS monitoring. Dizziness is better. 09/15: Dizziness has improved. Dexamethasone 4 mg IV 1 dose. Fasting profile within normal limit. MRI brain negative for acute stroke. Patient had partial response to Antivert in the past therefore prescription for Antivert given. Mild hypokalemia, potassium replaced. TSH normal. Orthostatic negative 2. Hypertension: Blood pressure is in normal range. Patient on atenolol, and i ndapamide continue home antihypertensive medications. 3 hypothyroidism: Continue levothyroxine. TSH normal 4 history of breast cancer: Status post lumpectomy, stable, in remission. 5 depression: Patient on Paxil and amitriptyline, low-dose. 6 Bilateral knee arthritis with muscle spasm: Patient on baclofen, dose decreased to 5 mg 3 times daily as needed for spasm. DVT prophylaxis: Subcu Lovenox. Living will/advanced directive/end of life care: Patient does not have living will or advanced directive. After discussion of benefits/risks procedures involved with full code, DNR CC arrest and DNR CC, the patient and her opted for full code. Patient does want artificial life support including intubation, tube feed, ventilator and/chest compression, central venous catheter, vasopressor and DC shock if needed Discharge medication reconciliation done. Discharge follow-up instructions completed. Discharge process discussed with the patient and all questions were answered to patient's satisfaction. Total time spent, exact 35 minutes on discharge meds reconciliation, examination, coordination of care with nurses and ancillary staff, review of imaging and blood test and discussion with the patient on follow-up instructions. Medications at Discharge Home Medications omeprazole 40 mg capsule,delayed release 40 mg PO 1700 gerd #90 caps 01/01/22 paroxetine HCl 40 mg tablet 40 mg PO DAILY #90 tabs 01/01/22 amitriptyline 25 mg tablet 25 mg PO QHS #90 tabs 03/31/22 indapamide 1.25 mg tablet 1.25 mg PO QAM htn #90 tabs 03/31/22 baclofen 10 mg tablet 10 mg PO TID PRN muscle spasm #90 tabs 04/08/22 atenolol 50 mg tablet 50 mg PO DAILY heart rate/Bp #90 tabs 04/30/22 levothyroxine 150 mcg tablet 150 mcg PO DAILY #90 tabs 08/04/22 acetaminophen 500 mg tablet 1,000 mg PO DAILY PRN Pain 09/14/22 alendronate 70 mg tablet (Fosamax) 70 mg PO GARZA 09/14/22 cholecalciferol (vitamin D3) 1,250 mcg (50,000 unit) capsule 1,250 mcg PO GARZA 09/14/22 meclizine 12.5 mg tablet 12.5 mg PO 4X/DAY PRN PRN DIZZINESS/VERTIGO #30 tabs 09/15/22 Physical Exam Narrative Seen and examined. Patient was very wobbly, dyslipidemia and dizziness yesterday and required 2 people assist. She feels much better today. She has history of dizziness for 2 to 3 years. Denies vertigo. Acute stroke ruled out. General: Alert, Oriented x3, Cooperative, BMI 33.2 kg/m?, obesity grade 1 HEENT: Hallpike test negative, atraumatic, PERRLA, EOMI. No tenderness over external ear or mastoid process. Oral: Oral mucosa moist. No Gingival or Mucosal Lesions/ Ulcerations Neck: Supple, No JVD, Negative Carotid Bruits Lungs: Air entry diminished in bilateral lung bases. No crepitation/rhonchi Cardiovascular: Regular rate, Regular Rhythm, Normal S1, Normal S2, No murmurs Abdomen: Bowel Sounds Present, Soft, Non Tender, Non-Distended : No renal angle tenderness. No suprapubic tenderness. Extremities: No edema, Capillary Refill Less than 3 Seconds Skin: No rashes, No breakdown Musculoskeletal: Bilateral knee arthritis. No Tenderness to Palpation of Joints or Extremities, muscle strength 5/5 at major joints. Neurological: Cranial nerves II-XII grossly intact, DTR 2+/4, heel gibson and finger-nose test normal. NIH stroke scale 0. Psych/Mental Status: Normal Affect, Appropriate. Weight / BMI Weight Weight: 187 lb 2.759 oz Body Mass Index (BMI) 33.1 ABG / Lab / Microbiology Data Result Diagrams: 09/15/22 05:56 09/15/22 05:56 Laboratory: Laboratory Results - last 24 hr 09/14/22 10:15: PT 15.4 H, INR 1.3, APTT 27.8 09/14/22 10:15: Magnesium 2.4 09/15/22 05:56: WBC 5.3, RBC 4.79, Hgb 12.8, Hct 39.7, MCV 82.9, MCH 26.7 L, MCHC 32.2, RDW Std Deviation 44.2 H, RDW Coeff of Annie 14.6, Plt Count 231, MPV 11.0, Immature Gran % (Auto) 0.400, Neut % (Auto) 55.0, Lymph % (Auto) 32.1, [place] % (Auto) 8.3, Eos % (Auto) 3.8, Baso % (Auto) 0.4, Absolute Neuts (auto) 2.9, Absolute Lymphs (auto) 1.70, Nucleated RBC % 0 09/15/22 05:56: Sodium 140, Potassium 3.4 L, Chloride 105, Carbon Dioxide 28.0, Anion Gap 7, BUN 14, Creatinine 0.93, Estim Creat Clear Calc 46.56, Est GFR (MDRD) Af Amer 77, Est GFR (MDRD) Non-Af 63, BUN/Creatinine Ratio 15.0, Glucose 114 H, Calcium 8.9, Triglycerides 134, Cholesterol 148, LDL Cholesterol 85, VLDL Cholesterol 27, HDL Cholesterol 36 L, TSH 1.52 Radiography Diagnostic Testing: Radiology Impression Brain CT 09/14/22 10:19 IMPRESSION: Chronic involutional changes of the brain. N.B. : The above Results were Read Back by Octavio Aviles MD to Dr Elsi MD, and understanding confirmed on 09/14/2022 10:30:39 (ET). Electronically Signed: Octavio Aviles MD at 10:31 EST , Chest X-Ray 09/14/22 10:19 IMPRESSION: No acute abnormalities present. Electronically Signed: Octavio Aviles MD at 11:56 EST , Head/Neck CTA 09/14/22 10:19 IMPRESSION: Minimal calcific plaque seen at the origin of the right internal carotid artery. Small left vertebral artery. Electronically Signed: Octavio Aviles MD at 11:05 EST Reading Location ID and State: [facility] / [place] , Service support , ADDENDUM: 09/14/22 1118 IMPRESSION: Minimal calcific plaque seen at the origin of the right internal carotid artery. Small left vertebral artery. N.B. : The above Results were Read Back by Octavio Aviles MD to Dr Elsi MD, and understanding confirmed on 09/14/2022 11:11:43 (ET). Electronically Signed: Octavio Aviles MD at 11:05 EST , Brain MRI 09/14/22 18:35 IMPRESSION: No acute intracranial abnormality. No evidence of acute CVA. Minimal chronic changes. Electronically Signed: Arcelia Wu MD at 22:08 EST , D/C Instructions Discharge Diet: No restrictions Weight Bearing Status: Weight bearing as tolerated Call your doctor if you observe: Fever of 101 or Higher, Coldness, Increased Pain, Numbness or Tingling, Change in Color, Inability to urinate, Inability to have a bowel movement, Using more than 1 pad per hour, Shortness of breath, Dizziness, Fainting spells, Swelling in the ankles, Chest pain, Prolonged hiccupping, Increased palpitations (irregular heartbeat) and Calf discomfort When: IN 2 WEEKS Meaningful Use Info Meaningful Use Diagnoses (Choose all that apply): None applicable Discharge Plan Admission Admit Date/Time: 09/14/22 11:29 Primary Reason for Your Visit: Dizziness, gait Disequilibrium Attending Provider: Abraham Yepez Primary Care Provider: Rohith Alexandre Discharge Orders/Prescriptions Prescriptions: New meclizine 12.5 mg Tablet 12.5 mg PO 4X/DAY PRN PRN (Reason: DIZZINESS/VERTIGO) Qty: 30 0RF Continued omeprazole 40 mg capsule,delayed release(DR/EC) 40 mg PO 1700 Qty: 90 3RF paroxetine HCl 40 mg tablet 40 mg PO DAILY Qty: 90 3RF baclofen 10 mg tablet 10 mg PO TID PRN (Reason: muscle spasm) Qty: 90 2RF alendronate [Fosamax] 70 mg tablet 70 mg PO GARZA cholecalciferol (vitamin D3) 1,250 mcg (50,000 unit) capsule 1,250 mcg PO GARZA acetaminophen 500 mg Tablet 1,000 mg PO DAILY PRN (Reason: Pain) indapamide 1.25 mg tablet 1.25 mg PO QAM Qty: 90 1RF amitriptyline 25 mg tablet 25 mg PO QHS Qty: 90 1RF atenolol 50 mg tablet 50 mg PO DAILY Qty: 90 1RF levothyroxine 150 mcg tablet 150 mcg PO DAILY Qty: 90 1RF Referrals / Follow Up: Rohith Alexandre MD [Primary Care Provider] - Liam Engle MD [Med Staff - Active Staff] - Within 2 Weeks (dizziness/ vestibular dysfunction) Disposition Disposition (needs filled in before D/C Order can be placed): Home, Self Care Charges/Coding Visit Charges Inpatient E&M: 88190 Disch Hosp >30min
--- NOTE | 2022-09-15 11:17 | PHA.DC.MR ---
Pharmacy Service has performed discharge medication reconciliation for this patient. The patient's discharge medication list was reviewed for discrepancies and discrepancies were resolved. Home Medications omeprazole 40 mg capsule,delayed release 40 mg PO 1700 gerd #90 caps 01/01/22 paroxetine HCl 40 mg tablet 40 mg PO DAILY #90 tabs 01/01/22 amitriptyline 25 mg tablet 25 mg PO QHS #90 tabs 03/31/22 indapamide 1.25 mg tablet 1.25 mg PO QAM htn #90 tabs 03/31/22 baclofen 10 mg tablet 10 mg PO TID PRN muscle spasm #90 tabs 04/08/22 atenolol 50 mg tablet 50 mg PO DAILY heart rate/Bp #90 tabs 04/30/22 levothyroxine 150 mcg tablet 150 mcg PO DAILY #90 tabs 08/04/22 acetaminophen 500 mg tablet 1,000 mg PO DAILY PRN Pain 09/14/22 alendronate 70 mg tablet (Fosamax) 70 mg PO GARZA 09/14/22 cholecalciferol (vitamin D3) 1,250 mcg (50,000 unit) capsule 1,250 mcg PO GARZA 09/14/22 meclizine 12.5 mg tablet 12.5 mg PO 4X/DAY PRN PRN DIZZINESS/VERTIGO #30 tabs 09/15/22
[2022-09-15] MEDS: dexAMETHasone 4 MG/ML Vial IV (11:29)
[2022-09-15] MEDS: Potassium Chloride Oral Tablet 20 MEQ 40 MEQ PO (11:29)
[2022-09-15] MEDS: Meclizine 12.5 MG Tablet PO (11:29)
[2022-09-15 13:10] VITALS: BP 115/77; PULSE 73; RESP 16; TEMP 36.8; O2SAT 97
== END 2022-09-15 12:10 | disposition home or self-care (01) ==
LOC: ED 11:16 → PCU 11:39
PROVIDERS: Admitting Provider Internal Medicine; Emergency Provider Emergency Medicine; PCP Internal Medicine; Visit Provider Internal Medicine
DX: R42 Dizziness and giddiness (principal); R55 Syncope and collapse; Z87.891 Personal history of nicotine dependence; I45.2 Bifascicular block; M79.7 Fibromyalgia; I10 Essential (primary) hypertension; E03.9 Hypothyroidism, unspecified; Z79.899 Other long term (current) drug therapy; Z79.890 Hormone replacement therapy; F32.A Depression, unspecified; M17.0 Bilateral primary osteoarthritis of knee; G89.29 Other chronic pain; K21.9 Gastro-esophageal reflux disease without esophagitis
CPT/HCPCS: 36415; 70450; 70496; 70498; 70551; 71045; 80048; 80061; 83735; 84443; 84484; 85025; 85610; 85730; 92610; 93005; 94762; 96361; 96372; 96374; 96375; 97162; 97166; 99221; 99285; J7030; J7120; Q9967; A4216; G0378

== ENCOUNTER → 2022-10-19 | Outpatient (CLI) | payer MEDICARE, SELFPAY ==
[2022-10-19 12:29] LABS: Anion Gap 6 (5-15); BUN 20 mg/dL (7-18); Calcium,Total 9.4 mg/dL (8.5-10.1); Chloride 103 mmol/L (98-107); Creatinine, Serum 1.05 mg/dL (0.55-1.02); EST Glomerular Filtration Rate 55 mL/min (>60); Est Glom Filt Rate - Afr Amer 67 mL/min (>60); Glucose 103 mg/dL (74-106); Potassium 3.8 mmol/L (3.5-5.1); Sodium Level 139 mmol/L (136-145)
[2022-10-19 12:35] LABS: Vitamin D,25 Hydroxy 45.8 ng/mL
== END | disposition home or self-care (01) ==
LOC: BIMLAB 11:08
PROVIDERS: PCP Internal Medicine; Referring Provider Internal Medicine; Visit Provider Internal Medicine
DX: M85.80 Other specified disorders of bone density and structure, unspecified site (principal); I10 Essential (primary) hypertension
CPT/HCPCS: 36415; 80048; 82306

== ENCOUNTER → 2023-03-12 | Outpatient (CLI) | payer MEDICARE, SELFPAY ==
[2023-03-12 12:22] LABS: Anion Gap 5 (5-15); BUN 17 mg/dL (7-18); Calcium,Total 9.3 mg/dL (8.5-10.1); Chloride 105 mmol/L (98-107); Creatinine, Serum 1.06 mg/dL (0.55-1.02); EST Glomerular Filtration Rate 54 mL/min (>60); Est Glom Filt Rate - Afr Amer 66 mL/min (>60); Glucose 132 mg/dL (74-106); Potassium 3.9 mmol/L (3.5-5.1); Sodium Level 140 mmol/L (136-145)
== END | disposition home or self-care (01) ==
LOC: BIMLAB 11:04
PROVIDERS: PCP Internal Medicine; Referring Provider Internal Medicine; Visit Provider Internal Medicine
DX: I10 Essential (primary) hypertension (principal)
CPT/HCPCS: 36415; 80048

== ENCOUNTER → 2023-11-22 | Outpatient (CLI) | payer MEDICARE, SELFPAY ==
[2023-11-22 12:07] LABS: Absolute Lymphocyte Count 1.24 X10^3/uL (0.83-4.51); Absolute Neutrophil Count 3.5 X10^3/uL (2.0-7.7); Basophil# 0.03 X10^3/uL; Basophil% 0.5 % (0-1); Eosinophil# 0.39 X10^3/uL; Eosinophils% 7.1 % (0-5); Hematocrit 42.9 % (37-47); Hemoglobin 14.1 g/dL (12.0-15.0); Lymphocyte # 1.24 X10^3/ul (0.83-4.51); Lymphocyte % 22.5 % (19-41); Mean Corp Hgb Conc 32.9 g/dL (32-36); Mean Corpuscular Hgb 27.6 pg (27.0-32.0); Mean Corpuscular Volume 84.1 fL (81-99); Mean Platelet Vol. 11.2 fl (6.2-12.0); Monocyte# 0.35 X10^3/uL; Monocyte% 6.4 % (0-10); NRBC Flagged by Analyzer 0 % (0-5); Neutrophil # 3.45 X10^3/uL (2.7-7.7); Neutrophil % 62.8 % (47-70); Platelet Count 247 K/mm3 (150-450); RBC Distribution Width CV 14.4 % (11.6-14.6); RBC Distribution Width SD 43.8 fl (35.1-43.9); White Blood Count 5.5 K/mm3 (4.4-11.0)
[2023-11-22 12:25] LABS: ALB/GLOB Ratio 1.1 RATIO (0.9-2.4); AST(SGOT) 20 U/L (15-37); Alanine Aminotransfer ALT/SGPT 34 U/L (13-56); Albumin, Serum 3.7 g/dL (3.2-5.0); Alkaline Phosphatase 52 U/L (45-117); Anion Gap 4 (5-15); BUN 19 mg/dL (7-18); BUN/Creat Ratio 17.8 RATIO (10-20); Calcium,Total 8.9 mg/dL (8.5-10.1); Chloride 104 mmol/L (98-107); Cholesterol 198 mg/dL (200); Creatinine, Serum 1.07 mg/dL (0.55-1.02); EST Glomerular Filtration Rate 54 mL/min (>60); Est Glom Filt Rate - Afr Amer 65 mL/min (>60); Globulin 3.5 g/dL (2.2-4.2); Glucose 127 mg/dL (74-106); High Density Lipoprotein 42 mg/dL; Potassium 3.9 mmol/L (3.5-5.1); Protein, Total 7.2 g/dL (6.4-8.2); Sodium Level 137 mmol/L (136-145); Thyroid Stim Hormone (TSH) 7.78 uIU/mL (0.358-3.74); Triglycerides 163 mg/dL; Very Low Density Lipoprotein 33 mg/dL (5-40)
[2023-11-22 12:41] LABS: Vitamin D,25 Hydroxy 58.4 ng/mL
== END | disposition home or self-care (01) ==
LOC: BIMLAB 10:42
PROVIDERS: PCP Internal Medicine; Visit Provider Internal Medicine
DX: I10 Essential (primary) hypertension (principal); M85.80 Other specified disorders of bone density and structure, unspecified site
CPT/HCPCS: 36415; 80053; 80061; 82306; 84443; 85025

== ENCOUNTER → 2023-12-29 | Outpatient (CLI) | payer MEDICARE, SELFPAY ==
--- NOTE | 2023-12-29 15:26 | RAD_ITS ---
EXAM: XR CHEST, 2 VIEWS CLINICAL INDICATION: Shortness of breath TECHNIQUE: Frontal and lateral views of the chest. COMPARISON: September 14, 2022. FINDINGS: LUNGS AND PLEURAL SPACES: Calcified granulomas involving the left hilar region are compatible with old granulomatous disease. No pneumothorax. No effusion. HEART: Unremarkable. Cardiac silhouette not enlarged. MEDIASTINUM: Central airways and mediastinal contour are unremarkable. BONES/JOINTS: Degenerative changes of the spine. Chronic moderate anterior wedge compression deformity involving the thoracolumbar spine level. SOFT TISSUES: Right paracardial convexity may represent a cyst or paracardial fat/lipoma. RAD/Chest PA and Lateral IMPRESSION: No acute disease. Electronically Signed: Mitchel Thomas MD at 5:10 EDT ,
[2023-12-29 16:56] LABS: Thyroid Stim Hormone (TSH) 0.64 uIU/mL (0.358-3.74)
== END | disposition home or self-care (01) ==
PROVIDERS: PCP Internal Medicine; Referring Provider Internal Medicine; Visit Provider Internal Medicine
DX: E03.9 Hypothyroidism, unspecified (principal); R06.02 Shortness of breath
CPT/HCPCS: 36415; 71046; 84443

== ENCOUNTER → 2024-01-06 | Outpatient (CLI) | payer MEDICARE, SELFPAY ==
--- NOTE | 2024-01-06 13:45 | STRESSREP ---
Stress Test Report Exercise stress test. 73-year-old lady with a history of chest pain Stress protocol: Resting EKG demonstrates normal sinus rhythm with a rate of 80 bpm resting blood pressure is 122/70 mmHg. The patient exercised according to the regular Harshal protocol for a total duration of 3 minutes attaining a maximum heart rate of 132 bpm which was 81% of maximum predicted heart rate; the maximum workload was 4.7 metabolic equivalents. At rest there were no ST or T wave changes noted to suggest ischemia and at peak exercise upsloping ST changes only were noted which did not meet the criteria for ischemia. No clinical angina was noted the test was terminated due to the target heart rate being achieved/fatigue. The peak blood pressure was 154/72 mmHg. Rate-pressure product was 18,000 patient did have a rate dependent right bundle branch block. Conclusion: Exercise stress test with no EKG changes at a low workload and a rate dependent right bundle branch block.
== END | disposition home or self-care (01) ==
LOC: PSN 10:43
PROVIDERS: PCP Internal Medicine; Referring Provider Internal Medicine; Visit Provider Internal Medicine
DX: R06.02 Shortness of breath (principal)
CPT/HCPCS: 93017; 94060; 94726; 94729

== ENCOUNTER → 2024-03-10 | Outpatient (CLI) | payer MEDICARE, SELFPAY ==
[2024-03-10 15:23] LABS: Anion Gap 6 (5-15); BUN 23 mg/dL (7-18); BUN/Creat Ratio 22.8 RATIO (10-20); Calcium,Total 9.3 mg/dL (8.5-10.1); Chloride 103 mmol/L (98-107); Creatinine, Serum 1.01 mg/dL (0.55-1.02); EST Glomerular Filtration Rate 57 mL/min (>60); Est Glom Filt Rate - Afr Amer 69 mL/min (>60); Glucose 67 mg/dL (74-106); Potassium 3.4 mmol/L (3.5-5.1); Sodium Level 139 mmol/L (136-145)
== END | disposition home or self-care (01) ==
LOC: BIMLAB 11:24
PROVIDERS: PCP Internal Medicine; Referring Provider Internal Medicine; Visit Provider Internal Medicine
DX: I10 Essential (primary) hypertension (principal)
CPT/HCPCS: 36415; 80048

== ENCOUNTER → 2024-03-30 | Outpatient (CLI) | payer MEDICARE, SELFPAY ==
--- NOTE | 2024-03-30 17:37 | CT_ITS ---
EXAM: CT CHEST WITHOUT INTRAVENOUS CONTRAST CLINICAL INDICATION: Chronic Dyspnea TECHNIQUE: Helically acquired images were obtained of the chest without intravenous contrast. This CT exam was performed using one or more of the following dose reduction techniques: automated exposure control, adjustment of the mA and/or kV according to patient size, and/or use of iterative reconstruction technique. RADIATION DOSE: CTDIvol = 15.74 mGy, DLP = 570.16 mGy-cm COMPARISON: No relevant prior studies available. FINDINGS: LUNGS AND PLEURAL SPACES: Some faint and small scattered groundglass opacities in the lungs. No dense alveolar infiltrate or effusion. No mass. HEART: Slight calcification at the aortic valve region. Normal heart size. No pericardial effusion. No visible coronary artery calcifications. MEDIASTINUM: See below. THYROID: Unremarkable. No thyroid lesions. BONES/JOINTS: Chronic spine changes. Chronic thoracic spine changes, including roughly 50% compression deformity of T12 mildly sclerotic. No evidence of high-grade spinal stenosis. Calcification at multiple lower thoracic and upper lumbar discs. VASCULATURE: See above. LYMPH NODES: Small calcified lymph nodes in the left prevascular region and left hilum. Mild mediastinal lipomatosis. UPPER ABDOMEN Multiple calcified granulomas in the liver and spleen. The adrenals, partially included pancreas, moderately distended stomach with mixed density material and gas are without acute abnormality. CT/Chest without Contrast IMPRESSION: Subtle hazy groundglass opacities, predominantly in the lung bases and in the dependent left upper lobe. No confluent alveolar infiltrate. Suspicious for mild pneumonitis. Old granulomatous disease. Chronic spine changes. Electronically Signed: Arcelia Wu MD at 3:16 EDT ,
== END | disposition home or self-care (01) ==
LOC: CT 17:37
PROVIDERS: PCP Internal Medicine; Visit Provider Internal Medicine
DX: R06.02 Shortness of breath (principal)
CPT/HCPCS: 71250

== ENCOUNTER → 2024-04-10 | Outpatient (CLI) | payer MEDICARE, SELFPAY ==
[2024-04-10 16:07] LABS: Absolute Lymphocyte Count 1.86 X10^3/uL (0.83-4.51); Basophil# 0.03 X10^3/uL; Basophil% 0.4 % (0-1); Eosinophil# 0.37 X10^3/uL; Eosinophils% 5.5 % (0-5); Hematocrit 44.8 % (37-47); Hemoglobin 14.5 g/dL (12.0-15.0); Lymphocyte # 1.86 X10^3/ul (0.83-4.51); Lymphocyte % 27.8 % (19-41); Mean Corp Hgb Conc 32.4 g/dL (32-36); Mean Corpuscular Hgb 27.2 pg (27.0-32.0); Mean Corpuscular Volume 84.1 fL (81-99); Mean Platelet Vol. 10.4 fl (6.2-12.0); Monocyte# 0.42 X10^3/uL; Monocyte% 6.3 % (0-10); NRBC Flagged by Analyzer 0 % (0-5); Neutrophil # 3.98 X10^3/uL (2.7-7.7); Neutrophil % 59.4 % (47-70); Platelet Count 271 K/mm3 (150-450); RBC Distribution Width CV 14.6 % (11.6-14.6); RBC Distribution Width SD 44.2 fl (35.1-43.9); Red Blood Count 5.33 M/mm3 (4.2-5.4); White Blood Count 6.7 K/mm3 (4.4-11.0)
[2024-04-10 16:09] LABS: POSITIVE COUNT NO; POSITIVE DIFFERENTIAL NO; POSITIVE MORPHOLOGY NO
[2024-04-14 00:07] LABS: Beef 0.22 kU/L (Class 0/I); Chocolate <0.10 kU/L (Class 0); Codfish <0.10 kU/L (Class 0); Corn <0.10 kU/L (Class 0); Egg, Whole 0.21 kU/L (Class 0/I); Milk (Cow) 2.22 kU/L (Class III); Mussels <0.10 kU/L (Class 0); Peanut <0.10 kU/L (Class 0); Pork <0.10 kU/L (Class 0); Salmon <0.10 kU/L (Class 0); Shrimp <0.10 kU/L (Class 0); Soybean <0.10 kU/L (Class 0); Tuna <0.10 kU/L (Class 0); Wheat 0.44 kU/L (Class I)
== END | disposition home or self-care (01) ==
LOC: LAB 15:37
PROVIDERS: PCP Internal Medicine; Referring Provider Student in an Organized Health Care Education/Training Program; Visit Provider Student in an Organized Health Care Education/Training Program
DX: K22.2 Esophageal obstruction (principal); K20.0 Eosinophilic esophagitis; T78.40XA Allergy, unspecified, initial encounter
CPT/HCPCS: 36415; 85025; 86003; 86005

== ENCOUNTER 2024-05-04 09:51 | Day surgery (SDC) | payer MEDICARE, SELFPAY ==
[2024-05-04 10:13] VITALS: BP 127/74; PULSE 80; RESP 16; TEMP 36.3; O2SAT 99; BMI 34.0
[2024-05-04] MEDS: Lactated Ringers 1,000 ML 15 ML IV (10:15)
[2024-05-04 10:17] VITALS: BP 127/74; PULSE 80; RESP 16; TEMP 36.3; O2SAT 99
--- NOTE | 2024-05-04 10:17 | PCM.PRE.AN2 ---
ASA Classification* ASA Classification ASA Classification: 3 Assessment & Plan Anesthesia* Anesthesia Assessment Anesthesia Assessment: Discussed sedation and/or anesthesia options, risks, benefits, and alternatives with patient/parents/legal guardian/POA. Questions invited. The patient/parents/legal guardian/POA seems to understand and agrees to proceed with anesthesia plan. Reviewed the physical assessment, medical history, allergy history and patient home medications list prior to surgery/procedure/anesthetic and documented any changes. Performed airway and anesthesia risk assessments. Anesthesia Type Anesthesia Type: MAC (see written pre anesthesia record for full assessment) Anesthesia Focused Assessment* Temperature: 97.4 F Pulse Rate: 80 Blood Pressure: 127/74 Respiratory Rate: 16 Pulse Ox: 99 Airway Assessment Mouth opens: >3 cm Mallampati Score: II Focused Labs Anesthesia Preop lab: CBC WBC 6.7 K/mm3 (4.4-11.0) 04/10/24 15:45 RBC 5.33 M/mm3 (4.2-5.4) 04/10/24 15:45 Hgb 14.5 g/dL (12.0-15.0) 04/10/24 15:45 Hct 44.8 % (37-47) 04/10/24 15:45 Plt Count 271 K/mm3 (150-450) 04/10/24 15:45 CHEMISTRY Potassium 3.4 mmol/L (3.5-5.1) L 03/10/24 11:24 Sodium 139 mmol/L (136-145) 03/10/24 11:24 Magnesium 2.4 mg/dL (1.6-2.6) 09/14/22 10:15 BUN 23 mg/dL (7-18) H 03/10/24 11:24 Creatinine 1.01 mg/dL (0.55-1.02) 03/10/24 11:24 Glucose 67 mg/dL (74-106) L 03/10/24 11:24 TSH 0.64 uIU/mL (0.358-3.74) 12/29/23 14:48 COAG PT 15.4 SECONDS (11.7-14.9) H 09/14/22 10:15 Pre-Assessment Diagnosis/Proposed Procedure Planned Operative Procedure(s): EGD Anesthesia History 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 When Was Last Pacemaker Check QUESTION #4 FULL TEXT: You/Your Family Experience fever (hyperthermia) with Anesthesia Last Oral Intake Last Oral intake: Last Oral Intake NPO since 22:00 05/04/24 10:13 Meds taken in AM with sips of water? 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 - property investor: PONV - property investor Female Yes 05/02/24 10:42 HX of Motion Sickness No 05/02/24 10:42 HX of N/V After Surgery No 05/02/24 10:42 Non-Smoker Yes 05/02/24 10:42 Duration of Surgery greater No 05/02/24 10:42 than 60 minutes Number of Risk Factors 2 05/02/24 10:42 PONV Score Moderate Risk 05/02/24 10:42 Height & Weight Height & Weight: Anesthesia: Height & Weight Height 5 ft 4 in 05/04/24 10:13 Weight: 90 kg 05/04/24 10:13 Body Mass Index (BMI) 34.0 05/04/24 10:13 Respiratory Assessment Respiratory Assessment - property investor: Respiratory Tract Infection Hx - property investor Hx Respiratory Tract Infection No 05/02/24 10:42 STOP Sleep Apnea STOP Sleep Apnea - property investor: STOP Sleep Apnea - property investor Hx Hypertension Yes: CONTROLLED WITH MED 05/02/24 10:42 Hx Sleep Apnea No 05/02/24 10:42 CPAP No 09/14/22 12:29 BIPAP Do you snore loudly (louder Yes 05/02/24 10:42 than talking or can be heard Do you often feel tired/ No 05/02/24 10:42 fatigued/ sleepy during daytime? Has anyone observed you stop No 05/02/24 10:42 breathing during sleep? STOP Results Positive 05/02/24 10:42 QUESTION #5 FULL TEXT : Do you snore loudly (louder than talking or can be heard through closed doors)? 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 Specify any problems Hx of Preganancy in last 3 No 05/02/24 10:42 Months Nurse Filling Out Transfusion DSCHRIBER 05/02/24 10:42 & Questions: Date: 05/02/24 05/02/24 10:42 Time: 10:44 05/02/24 10:42 Patient unable to answer at this time (ie. 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 - property investor: /Reproductive Hx- property investor Hx Now No 05/02/24 10:42 Gestational Age (in weeks): EDC: Hx Hx Para Hx Section SAB No 05/02/24 10:42 Active Medications Active Medications: Current Medications Generic Name Dose Route Start Last Admin Trade Name Freq PRN Reason Stop Dose Admin Lactated Ringer's 1,000 mls @ 15 mls/hr 05/04/24 10:15 IV .Q48H AJITH PFSH Medical History Loss of hearing Wears glasses Post-menopausal Cancer Alcohol use Difficulty swallowing Gastric reflux Former smoker Pneumonitis Shortness of breath on exertion History of pain when walking History of echocardiogram History of stress test Abnormal chest CT Shortness of breath Esophageal stricture Osteoarthritis Vertigo Dysequilibrium Chronic back pain Lumbar radiculopathy Chronic neck pain Anxiety and depression GERD (gastroesophageal reflux disease) Occipital neuralgia Health care maintenance Eosinophilic esophagitis Vitamin D deficiency Osteopenia Fibromyalgia Compression fracture of body of thoracic vertebra Cholelithiasis with chronic cholecystitis Preop cardiovascular exam Abnormal ECG Chest pain Hypersomnia History of breast cancer Depression Hypothyroidism HTN (hypertension), benign Home Medications ?Medication ?Instructions ?Recorded ?Last Taken ?Type acetaminophen 500 mg tablet 1,000 mg PO DAILY PRN Pain 09/14/22 Unknown History omeprazole 40 mg capsule,delayed 40 mg PO 1700 gerd #90 caps 03/16/23 Unknown Rx release cholecalciferol (vitamin D3) 1,250 1,250 mcg PO GARZA #20 caps 06/11/23 Unknown Rx mcg (50,000 unit) capsule alendronate 70 mg tablet 70 mg PO QWEEK #12 TABLETS 11/04/23 Unknown Rx levothyroxine 150 mcg tablet 150 mcg PO DAILY #90 tabs 01/14/24 Unknown Rx indapamide 1.25 mg tablet 1.25 mg PO QAM htn #90 tabs 02/11/24 Unknown Rx paroxetine HCl 40 mg tablet 40 mg PO DAILY #90 tabs 03/09/24 Unknown Rx amitriptyline 25 mg tablet 25 mg PO QHS #90 tabs 04/20/24 Unknown Rx atenolol 50 mg tablet 50 mg PO DAILY 05/02/24 Unknown History Allergy/AdvReac Type Severity Reaction Status Date / Time ciprofloxacin (From Cipro) Allergy Intermediate hives Verified 05/02/24 10:41 milk (dairy) Allergy Food Verified 05/02/24 10:41 Allergy Family History Mother Breast cancer Father Cancer Bone and Bladder CA Alcoholism Grandmother Heart disease CVA (cerebral vascular accident) Sister Heart disease Cancer lung COPD (chronic obstructive pulmonary disease) Multiple sclerosis Brother Alcoholism Other Hypertension Surgical History History of cardiac catheterization Hx of cholecystectomy Status post breast lumpectomy History of arthroscopic knee surgery History of fusion of cervical spine History of Social History Smoking Status: Former smoker quit date: 08/02/77 Tobacco: How many years used: 5 second hand exposure: No alcohol intake: current alcohol intake frequency: a few times a month substance use type: does not use what type of physical activity do you participate in: none Review of Systems (Anesthesia) ROS Narrative System reviewed and no additional complaints, except as documented.
--- NOTE | 2024-05-04 10:39 | HP.PCM_ITS ---
History and Physical Date of Admission: 05/04/24 MILTON COKER, is a 74 F who presents to the office today for establishment with [facility]. She has a hx of esophageal stricture, OA, vertigo, RBBB, GERD, osteopenia, hx of breast cancer, HTN and fibromyalgia. In the past patient has seen Dr. Moon for her esophageal problems and EGDs. She is aware of her prior diagnosis of EOE and tells me she had food allergen testing done previously with numerous allergens being high. She was told to take omeprazole 40 mg daily but she continues to have cough and dysphagia. She denies abdominal pain, n/v, constipation or diarrhea. Colonoscopy .12.19; - Hemorrhoids found on perianal exam. - Diverticulosis in the sigmoid colon and in the descending colon. Biopsied. - The examination was otherwise normal EGD .12.19; - Esophageal mucosal changes consistent with eosinophilic esophagitis. Biopsied distally and in mid esophagus Small hiatal hernia noted EG junction widely patent at 38cm. - Erythematous mucosa in the antrum. Biopsied. - Normal examined duodenum. Biopsied ROS Const Constitutional: Positive for fatigue and frequent falls ENT ENT: Positive for difficulty swallowing Gastro GI: Positive for bloating, heartburn and difficulty swallowing Musc Musculoskeletal: Positive for joint pain, back pain, tingling and Arthritis Neuro Neurology: Positive for frequent falls and tingling Psych Psychiatric: Positive for anxiety Endo Endocrine: Positive for fatigue Exam Const General: cooperative and comfortable Nutritional Appearance: average body habitus and well nourished [facility] Head: normal to inspection Ears: hearing grossly normal bilaterally Nose: external nose normal Face and sinus: normal facial exam Eyes General: appearance normal, both eyes and all related structures Neck Neck: normal visual inspection Chest Chest palpation & inspection: normal inspection of the chest Resp Effort & Inspection: able to speak in complete sentences Cardio Palpation: normal PMI GI Inspection: normal to inspection Palpation: no hepatosplenomegaly Skin General: no rashes or lesions noted Neuro General: patient alert Extrem General: normal to inspection Psych Affect: normal affect Assessment and Plan Assessment and Plan (1) Esophageal stricture: Status: Chronic Plan: Patient is here today for establishment. She has had prior EGD with Dr. Moon and Dr. Mccollum indicating eosinophilic esophagitis which was treated with omeprazole. She did have food allergen testing done in the past but we do not have these results. She continues to have cough and dysphagia. Last CBC form January 2024 was pertinent for eosinophilia. -She will be scheduled for EGD. Last EGD in 2019 indicating EOE. No indication for colonoscopy at this time -We will consider treatment with Budesonide pending results of EGD -She has been taking omeprazole 40 mg daily for a few years now. She does have osteopenia and I counseled her on side effects of prolonged use of PPI on absorption of vitamin D and calcium. She is currently on alendronate. I expressed that she should continue PPI for now and we will taper down in the future. -Will order CBC to monitor eosinophilia as well as food allergen panel (2) Eosinophilic esophagitis: Status: Chronic Orders: I have examined the patient and the H&P has been reviewed. There are no clinical changes since date of exam.
--- NOTE | 2024-05-04 11:00 | IMM_PTH ---
PATIENT: MILTON COKER LOC: EN U#:[id number] AGE/SX: 74/F ROOM: RE05/04/[address]: Dr. Franco Tam DO : 1950 BED: DIS: 05/04/2024 SPEC #: [id number] RECD: 05/05/24 08:22 STATUS: JANEE REIris #: [id number] CORRY: 05/04/24 11:[address]: Franco Tam DEPT: IMMUNOHISTOCHEMISTRY RECD BY: Timmy Chowdary ENTERED: 05/05/24 08:22 SP TYPE: IMMUNO OTHR DR: Dr. Rohith Alexandre MD Tissues: B - Gastric mucous membrane Procedures: H Pylori (initial) PHYSICIAN & INSTITUTION [place] [id number] SPECIMEN INFORMATION: Tissue Source: B- Gastric antrum biopsy Clinical Info: Esophageal stricture, eosinophilic esophagitis Specimen Number: [id number] CPT code: 00943 METHODOLOGY: Deparaffinized sections of prefer/formalin-fixed tissue or PAP/DQ stained slides are incubated with monoclonal/polyclonal antibodies/oligonucleotide probes. Localization is made via biotin free immunoperoxidase method. Appropriate controls are performed and reacted as expected. Results on target cell population are indicated in the following table: RESULTS: ANTIBODY / CLONE RESULT Block B H Pylori (polyclonal) negative These tests were developed and their performance characteristics determined by [facility]. They may not have been cleared or approved by the U.S. Food and Drug Administration. The FDA has determined that such clearance or approval is not necessary. The above immunohistochemical/dualISH markers are ordered and reviewed by the Pathologist. INTERPRETATION: B. Gastric antrum, biopsy: Negative for Helicobacter pylori organisms. 05/08/2024
--- NOTE | 2024-05-04 11:00 | EGD_PTH ---
PATIENT: MILTON COKER LOC: EN U#:[id number] AGE/SX: 74/F ROOM: RE05/04/[address]: Dr. Franco Tam DO : 1950 BED: DIS: 05/04/2024 SPEC #: [id number] RECD: 05/04/24 18:15 STATUS: JANEE CAROL #: [id number] CORRY: 05/04/24 11:[address]: Franco Tam DEPT: SURGICAL PATHOLOGY RECD BY: Berenice Hood ENTERED: 05/05/24 07:47 SP TYPE: EGD BIOPSY OT DR: Dr. Rohith Alexandre MD Tissues: A - Esophagus, NOS B - Gastric mucous membrane Procedures: Special Stain Group I Surgery Specimen Level IV Alcian Blue/PAS (control) HEADER OPERATION: EGD with biopsies PRE-OP DIAGNOSIS: Esophageal stricture, eosinophilic esophagitis TISSUE SUBMITTED: A- Random esophagus biopsy, B- Gastric antrum biopsy MICROSCOPIC DIAGNOSIS A. Esophagus, random biopsy: Fragments of gastroesophageal mucosa with changes consistent with eosinophilic esophagitis. Mild chronic inflammation. Intestinal metaplasia (goblet cell metaplasia) not identified. See comment. B. Gastric antrum, biopsy: Mild gastritis. See microscopic description and comment. 05/08/2024 COMMENT A. Increased number of eosinophils (more than 20 per high power field) are noted consistent with eosinophilic esophagitis. Alcian blue/PAS stain with matched control is used in the evaluation of the specimen. B. The results of immunohistochemistry for Helicobacter pylori will be reported separately ([id number]). Case has been reviewed in consultation with Dr. Colbert who concurs with the above diagnosis. IDC:AM MICROSCOPIC DESCRIPTION Slides are reviewed. B. The specimen shows fragments of gastric mucosa with chronic inflammatory cell infiltrates in the lamina propria consisting of lymphocytes and plasma cells, consistent with mild chronic gastritis. GROSS DESCRIPTION A. Received in fixative is one container labeled with the patient's name and designated Random esophagus biopsy. The specimen consists of multiple irregular fragments of light celeste soft tissue that in aggregate measure 2.5 x 0.3 x 0.1 cm. The specimen is totally submitted in one cassette. B. Received in fixative is one container labeled with the patient's name and designated Gastric antrum biopsy. The specimen consists of multiple irregular fragments of light celeste soft tissue that in aggregate measure 1.0 x 0.5 x 0.1 cm. The specimen is totally submitted in one cassette. SJ.mr 05/05/2024 TC:3 CPT:75272f1,85332
--- NOTE | 2024-05-04 12:23 | OP.CCLET_ITS ---
05/04/2024 Rohith Alexandre MD [address] [place] [address] [place] [address] Re : Upper GI endoscopy procedure for Alma Tyrese Dear Dr. Alexandre This procedure was performed on May. My impressions and recommendations are as follows: Impressions : - Esophageal mucosal changes secondary to eosinophilic esophagitis. - Small hiatal hernia. - Chronic gastritis. Biopsied. - Normal first portion of the duodenum. - Biopsies were taken with a cold forceps for evaluation of eosinophilic esophagitis. Recommendations : - Discharge patient to home. - Resume previous diet. - Continue present medications. - Await pathology results. - lreferral to ENT for Palatal polyp My findings are described in the full procedure note, which is enclosed. If I can be of further assistance, please feel free to contact me at . Sincerely, Franco Friend, 05/04/2024 12:22:27 PM This report has been signed electronically.
--- NOTE | 2024-05-04 12:23 | OP.EGD_ITS ---
Patient Name: Alma Xiong Procedure Date: 05/04/2024 11:58 AM Date of : 1950 Age: 74 Procedure: Upper GI endoscopy Indications: Dysphagia Providers: Franco Tam DO Medicines: Monitored Anesthesia Care Patient Profile: This is a 74 year old female. Refer to note in patient chart for documentation of history and physical. Patient has symptoms of dysphagia with both liquids and solids. Complications: No immediate complications. Procedure: Pre-Anesthesia Assessment: - Prior to the procedure, a History and Physical was performed, and patient medications and allergies were reviewed. The patient is competent. The risks and benefits of the procedure and the sedation options and risks were discussed with the patient. All questions were answered and informed consent was obtained. Patient identification and proposed procedure were verified by the physician in the pre-procedure area. Mental Status Examination: alert and oriented. Airway Examination: normal oropharyngeal airway and neck mobility. Respiratory Examination: clear to auscultation. CV Examination: normal. Prophylactic Antibiotics: The patient does not require prophylactic antibiotics. Prior Anticoagulants: The patient has taken no anticoagulant or antiplatelet agents. ASA Grade Assessment: III - A patient with severe systemic disease. After reviewing the risks and benefits, the patient was deemed in satisfactory condition to undergo the procedure. The anesthesia plan was to use monitored anesthesia care (MAC). Immediately prior to administration of medications, the patient was re-assessed for adequacy to receive sedatives. The heart rate, respiratory rate, oxygen saturations, blood pressure, adequacy of pulmonary ventilation, and response to care were monitored throughout the procedure. The physical status of the patient was re-assessed after the procedure. After obtaining informed consent, the endoscope was passed under direct vision. Throughout the procedure, the patient's blood pressure, pulse, and oxygen saturations were monitored continuously. The gastroscope was introduced through the mouth, and advanced to the second part of duodenum. The upper GI endoscopy was accomplished without difficulty. The patient tolerated the procedure well. Scope In: 12:07:34 PM Scope Out: 12:13:29 PM Total Procedure Duration Time 0 hours 5 minutes 55 seconds Findings: Mucosal changes including ringed esophagus, feline appearance, longitudinal furrows, small-caliber esophagus, white plaques and circumferential folds were found in the upper third of the esophagus, in the middle third of the esophagus and in the lower third of the esophagus. Esophageal findings were graded using the Eosinophilic Esophagitis Endoscopic Reference Score (EoE-EREFS) as: Edema Grade 1 Present (decreased clarity or absence of vascular markings), Exudates Grade 1 Mild (scattered white lesions involving less than 10 percent of the esophageal surface area), Furrows Grade 1 Mild (vertical lines without visible depth) and Stricture present. Biopsies were obtained from the proximal and distal esophagus with cold forceps for histology of suspected eosinophilic esophagitis. Verification of patient identification for the specimen was done. Estimated blood loss was minimal. A small hiatal hernia was present. Patchy moderate inflammation characterized by erythema and linear erosions was found on the lesser curvature of the stomach. Biopsies were taken with a cold forceps for histology. Verification of patient identification for the specimen was done. Biopsies were taken with a cold forceps for Helicobacter pylori testing. Verification of patient identification for the specimen was done. Estimated blood loss was minimal. The first portion of the duodenum was normal. Impression: - Esophageal mucosal changes secondary to eosinophilic esophagitis. - Small hiatal hernia. - Chronic gastritis. Biopsied. - Normal first portion of the duodenum. - Biopsies were taken with a cold forceps for evaluation of eosinophilic esophagitis. Recommendation: - Discharge patient to home. - Resume previous diet. - Continue present medications. - Await pathology results. - lreferral to ENT for Palatal polyp Procedure Code(s): --- Professional --- 27102, Esophagogastroduodenoscopy, flexible, transoral; with biopsy, single or multiple CPT copyright 2021 [employer]. All rights reserved. The codes documented in this report are preliminary and upon sharples machine operator review may be revised to meet current compliance requirements. Franco Tam DO 05/04/2024 12:22:27 PM This report has been signed electronically. Number of Addenda: 0 Note Initiated On: 05/04/2024 11:58 AM
[2024-05-04 12:25] VITALS: BP 101/60; BP 127/74; PULSE 69; RESP 16; TEMP 36.4; O2SAT 95
--- NOTE | 2024-05-04 12:29 | PCM.POST.ANE ---
Anesthesia: Postop Eval I Current Vital Signs Temperature: 97.6 F Pulse Rate: 70 Blood Pressure: 101/60 Respiratory Rate: 16 Pulse Ox: 98 Oxygen Delivery Method: Room Air Assessment Airway patent: Yes Spontaneous unlabored respirations: Yes Mental status: Awake nausea: No Vomiting: No Anesthesia Complication: No Fluid Hydration Crystalloid volume administer (ml): 400 Total IV fluid infused: 400 Progress Note Anesthesia document: Postop Eval 1 completed: Yes
[2024-05-04 12:30] VITALS: BP 101/60; BP 119/81; BP 127/74; PULSE 70; RESP 16; TEMP 36.4; O2SAT 94; O2SAT 98
[2024-05-04 12:35] VITALS: BP 119/71; BP 127/74; PULSE 69; RESP 16; TEMP 36.8; O2SAT 93
== END 2024-05-04 13:06 | disposition home or self-care (01) ==
LOC: EN 09:52 → AC 09:53
PROVIDERS: PCP Internal Medicine; Referring Provider Internal Medicine Gastroenterology; Visit Provider Internal Medicine Gastroenterology
PROC: 0DJ08ZZ Inspection of Upper Intestinal Tract, Via Natural or Artificial Opening Endoscopic (ICD-10-PCS; CPT 43235; principal; 2024-05-04 10:55)
DX: K20.0 Eosinophilic esophagitis (principal); K44.9 Diaphragmatic hernia without obstruction or gangrene; K29.50 Unspecified chronic gastritis without bleeding; K21.9 Gastro-esophageal reflux disease without esophagitis; I10 Essential (primary) hypertension; E55.9 Vitamin D deficiency, unspecified; E03.9 Hypothyroidism, unspecified; F32.A Depression, unspecified; M79.7 Fibromyalgia; M19.90 Unspecified osteoarthritis, unspecified site; M85.80 Other specified disorders of bone density and structure, unspecified site; M54.16 Radiculopathy, lumbar region; G89.29 Other chronic pain; Z85.3 Personal history of malignant neoplasm of breast; Z87.19 Personal history of other diseases of the digestive system; Z90.49 Acquired absence of other specified parts of digestive tract; Z79.899 Other long term (current) drug therapy; Z79.890 Hormone replacement therapy; Z87.891 Personal history of nicotine dependence
CPT/HCPCS: 43239; 88305; 88312; 88342; J7120; J2405

== ENCOUNTER → 2024-06-14 | Outpatient (CLI) | payer MEDICARE, SELFPAY ==
[2024-06-14 15:34] LABS: Anion Gap 7 (5-15); BUN 18 mg/dL (7-18); BUN/Creat Ratio 19.2 RATIO (10-20); Calcium,Total 9.1 mg/dL (8.5-10.1); Chloride 104 mmol/L (98-107); Creatinine, Serum 0.94 mg/dL (0.55-1.02); EST Glomerular Filtration Rate 63 mL/min (>60); Est Glom Filt Rate - Afr Amer 76 mL/min (>60); Glucose 129 mg/dL (74-106); Potassium 4.1 mmol/L (3.5-5.1); Sodium Level 138 mmol/L (136-145)
== END | disposition home or self-care (01) ==
LOC: BIMLAB 11:28
PROVIDERS: PCP Internal Medicine; Referring Provider Internal Medicine; Visit Provider Internal Medicine
DX: I10 Essential (primary) hypertension (principal)
CPT/HCPCS: 36415; 80048

== ENCOUNTER 2024-08-07 08:34 | Day surgery (SDC) | payer MEDICARE, SELFPAY ==
--- NOTE | 2024-08-04 15:43 | PAT.ANESEVAL ---
Pre-Assessment Diagnosis/Proposed Procedure Planned Operative Procedure(s): MICRO DIRECT LARYNGOSCOPY WITH EXCISION HYPOPHARYNGEAL MASS Anesthesia History Anesthesia History - repairer and checker: Anesthesia History - repairer and checker Hx Hospitalization No 08/04/24 09:56 Any Problems With Anesthesia No 08/04/24 09:56 Cholinesterase deficiency No 08/04/24 09:56 You/Your Family Experience No 08/04/24 09:56 fever (hyperthermia) with Relationship Recent Exposure to Contagious No 05/04/24 10:13 Disease Does patient have nerve No 08/04/24 09:56 stimulator Patient instructed to have device shut off --Does patient have Pacemaker or ICD? When Was Last Pacemaker Check QUESTION #4 FULL TEXT: You/Your Family Experience fever (hyperthermia) with Anesthesia Last Oral Intake Last Oral intake: Last Oral Intake NPO since Meds taken in AM with sips of water? 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 - repairer and checker: PONV - repairer and checker Female Yes 08/04/24 09:56 HX of Motion Sickness No 08/04/24 09:56 HX of N/V After Surgery No 08/04/24 09:56 Non-Smoker Yes 08/04/24 09:56 Duration of Surgery greater No 08/04/24 09:56 than 60 minutes Number of Risk Factors 2 08/04/24 09:56 PONV Score Moderate Risk 08/04/24 09:56 Height & Weight Height & Weight: Anesthesia: Height & Weight Height 5 ft 4 in 06/14/24 11:09 Respiratory Assessment Respiratory Assessment - repairer and checker: Respiratory Tract Infection Hx - repairer and checker Hx Respiratory Tract Infection No 08/04/24 09:56 STOP Sleep Apnea STOP Sleep Apnea - repairer and checker: STOP Sleep Apnea - repairer and checker Hx Hypertension Yes: CONTROLLED WITH MED 08/04/24 09:56 Hx Sleep Apnea No 08/04/24 09:56 CPAP No 08/04/24 09:56 BIPAP Do you snore loudly (louder Yes 08/04/24 09:56 than talking or can be heard Do you often feel tired/ No 08/04/24 09:56 fatigued/ sleepy during daytime? Has anyone observed you stop No 08/04/24 09:56 breathing during sleep? STOP Results Positive 08/04/24 09:56 QUESTION #5 FULL TEXT : Do you snore loudly (louder than talking or can be heard through closed doors)? 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 Specify any problems Hx of Preganancy in last 3 No 08/04/24 09:56 Months Nurse Filling Out Transfusion DSCHRIBER 08/04/24 09:56 & Questions: Date: 08/04/24 08/04/24 09:56 Time: 09:58 08/04/24 09:56 Patient unable to answer at this time (ie. 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 - repairer and checker: /Reproductive Hx- repairer and checker Hx Now Gestational Age (in weeks): EDC: Hx Hx Para Hx Section SAB No 08/04/24 09:56 [facility] Medical History (Updated 08/04/24 @ 10:07 by Arleth Yee) Thyroid disease Pharyngitis Loss of hearing Wears glasses Post-menopausal Cancer Alcohol use Difficulty swallowing Gastric reflux Former smoker Pneumonitis Shortness of breath on exertion History of pain when walking History of echocardiogram History of stress test Abnormal chest CT Shortness of breath Esophageal stricture Osteoarthritis Vertigo Dysequilibrium Chronic back pain Lumbar radiculopathy Chronic neck pain Anxiety and depression GERD (gastroesophageal reflux disease) Occipital neuralgia Health care maintenance Eosinophilic esophagitis Vitamin D deficiency Osteopenia Fibromyalgia Compression fracture of body of thoracic vertebra Cholelithiasis with chronic cholecystitis Preop cardiovascular exam Abnormal ECG Chest pain Hypersomnia History of breast cancer Depression Hypothyroidism HTN (hypertension), benign Home Medications ?Medication ?Instructions ?Recorded ?Last Taken ?Type acetaminophen 500 mg tablet 1,000 mg PO DAILY PRN Pain 09/14/22 Unknown History cholecalciferol (vitamin D3) 1,250 1,250 mcg PO GARZA #20 caps 06/11/23 Unknown Rx mcg (50,000 unit) capsule levothyroxine 150 mcg tablet 150 mcg PO DAILY #90 tabs 01/14/24 Unknown Rx paroxetine HCl 40 mg tablet 40 mg PO DAILY #90 tabs 03/09/24 Unknown Rx amitriptyline 25 mg tablet 25 mg PO QHS #90 tabs 04/20/24 Unknown Rx indapamide 1.25 mg tablet 1.25 mg PO QAM htn #90 tabs 05/08/24 Unknown Rx omeprazole 40 mg capsule,delayed 40 mg PO BID gerd #60 caps 05/10/24 Unknown Rx release alendronate 70 mg tablet 70 mg PO QWEEK #12 TABLETS 05/22/24 Unknown Rx atenolol 50 mg tablet 50 mg PO DAILY #90 tabs 06/12/24 Unknown Rx Allergy/AdvReac Type Severity Reaction Status Date / Time ciprofloxacin (From Cipro) Allergy Intermediate hives Verified 08/04/24 09:55 milk (dairy) Allergy Food Verified 08/04/24 09:55 Allergy Family History Mother Breast cancer Father Cancer Bone and Bladder CA Alcoholism Grandmother Heart disease CVA (cerebral vascular accident) Sister Heart disease Cancer lung COPD (chronic obstructive pulmonary disease) Multiple sclerosis Brother Alcoholism Other Hypertension Surgical History (Updated 08/04/24 @ 10:01 by Arleth Yee) History of esophagogastroduodenoscopy (EGD) History of cardiac catheterization Hx of cholecystectomy Status post breast lumpectomy History of arthroscopic knee surgery History of fusion of cervical spine History of Social History Smoking Status: Former smoker quit date: 08/02/77 Tobacco: How many years used: 5 second hand exposure: No alcohol intake: current alcohol intake frequency: a few times a month substance use type: does not use what type of physical activity do you participate in: none Audit: Pertinent Findings Pertinent Findings EKG Perinent findings: December 29, 2023. Sinus rhythm. Anterior infarct age undetermined. T wave abnormality consider anterior septal ischemia. (See follow-up stress test.) Stress test pertinent findings: January 06, 2024. No EKG changes noted at a low workload. A rate dependent right bundle branch block was noted Echo (EF%) pertinent findings: September 05, 2019. Ejection fraction 65%. No aortic stenosis noted. Heart catheterization pertinent findings: September 05, 2019. Ejection fraction 60%. Normal coronary arteries. Recommendation Anesthesia Recommendation Anesthesia recommendation: OPTIMIZED for anesthesia
[2024-08-07] VITALS (10 sets, daily range): BP systolic 106–139; BP diastolic 59–73; PULSE 67–77; RESP 16–18; TEMP 36.3–36.7; O2SAT 91–100; BMI 34.0
--- NOTE | 2024-08-07 09:12 | PRE.ANES_ITS ---
ASA Classification* ASA Classification ASA Classification: 3 Assessment & Plan Anesthesia* Anesthesia Assessment Anesthesia Assessment: Discussed sedation and/or anesthesia options, risks, benefits, and alternatives with patient/parents/legal guardian/POA. Questions invited. The patient/parents/legal guardian/POA seems to understand and agrees to proceed with anesthesia plan. Reviewed the physical assessment, medical history, allergy history and patient home medications list prior to surgery/procedure/anesthetic and documented any changes. Performed airway and anesthesia risk assessments. Anesthesia Type Anesthesia Type: General Anesthesia Focused Assessment* Temperature: 97.6 F Pulse Rate: 67 Blood Pressure: 125/73 Respiratory Rate: 16 Pulse Ox: 100 Airway Assessment Mouth opens: >3 cm Mallampati Score: II Focused Labs Anesthesia Preop lab: CBC WBC 6.7 K/mm3 (4.4-11.0) 04/10/24 15:45 RBC 5.33 M/mm3 (4.2-5.4) 04/10/24 15:45 Hgb 14.5 g/dL (12.0-15.0) 04/10/24 15:45 Hct 44.8 % (37-47) 04/10/24 15:45 Plt Count 271 K/mm3 (150-450) 04/10/24 15:45 CHEMISTRY Potassium 4.1 mmol/L (3.5-5.1) 06/14/24 11:28 Sodium 138 mmol/L (136-145) 06/14/24 11:28 Magnesium 2.4 mg/dL (1.6-2.6) 09/14/22 10:15 BUN 18 mg/dL (7-18) 06/14/24 11:28 Creatinine 0.94 mg/dL (0.55-1.02) 06/14/24 11:28 Glucose 129 mg/dL (74-106) H 06/14/24 11:28 TSH 0.64 uIU/mL (0.358-3.74) 12/29/23 14:48 COAG PT 15.4 SECONDS (11.7-14.9) H 09/14/22 10:15 Pre-Assessment Diagnosis/Proposed Procedure Planned Operative Procedure(s): MICRO DIRECT LARYNGOSCOPY WITH EXCISION HY POPHARYNGEAL MASS Anesthesia History Anesthesia History - mid level developer: Anesthesia History - mid level developer Hx Hospitalization No 08/04/24 09:56 Any Problems With Anesthesia No 08/04/24 09:56 Cholinesterase deficiency No 08/04/24 09:56 You/Your Family Experience No 08/04/24 09:56 fever (hyperthermia) with Relationship Recent Exposure to Contagious No 08/07/24 09:05 Disease Does patient have nerve No 08/04/24 09:56 stimulator Patient instructed to have device shut off --Does patient have Pacemaker No 08/07/24 09:05 or ICD? When Was Last Pacemaker Check QUESTION #4 FULL TEXT: You/Your Family Experience fever (hyperthermia) with Anesthesia Last Oral Intake Last Oral intake: Last Oral Intake NPO since 07:15 08/07/24 09:05 Meds taken in AM with sips of Yes 08/07/24 09:05 water? Meds patient instructed to see medlist 08/07/24 09:05 take am of surgery PONV PONV - mid level developer: PONV - mid level developer Female Yes 08/04/24 09:56 HX of Motion Sickness No 08/04/24 09:56 HX of N/V After Surgery No 08/04/24 09:56 Non-Smoker Yes 08/04/24 09:56 Duration of Surgery greater No 08/04/24 09:56 than 60 minutes Number of Risk Factors 2 08/04/24 09:56 PONV Score Moderate Risk 08/04/24 09:56 Height & Weight Height & Weight: Anesthesia: Height & Weight Height 5 ft 4 in 08/07/24 09:05 Weight: 90 kg 08/07/24 09:05 Body Mass Index (BMI) 34.0 08/07/24 09:05 Respiratory Assessment Respiratory Assessment - mid level developer: Respiratory Tract Infection Hx - mid level developer Hx Respiratory Tract Infection No 08/04/24 09:56 STOP Sleep Apnea STOP Sleep Apnea - mid level developer: STOP Sleep Apnea - mid level developer Hx Hypertension Yes: CONTROLLED WITH MED 08/04/24 09:56 Hx Sleep Apnea No 08/04/24 09:56 CPAP No 08/04/24 09:56 BIPAP Do you snore loudly (louder Yes 08/04/24 09:56 than talking or can be heard Do you often feel tired/ No 08/04/24 09:56 fatigued/ sleepy during daytime? Has anyone observed you stop No 08/04/24 09:56 breathing during sleep? STOP Results Positive 08/04/24 09:56 QUESTION #5 FULL TEXT : Do you snore loudly (louder than talking or can be heard through closed doors)? 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 Specify any problems Hx of Preganancy in last 3 No 08/04/24 09:56 Months Nurse Filling Out Transfusion DSCHRIBER 08/04/24 09:56 & Questions: Date: 08/04/24 08/04/24 09:56 Time: 09:58 08/04/24 09:56 Patient unable to answer at this time (ie. 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 - mid level developer: /Reproductive Hx- mid level developer Hx Now Gestational Age (in weeks): EDC: Hx Hx Para Hx Section SAB No 08/04/24 09:56 PFSH Medical History Thyroid disease Pharyngitis Loss of hearing Wears glasses Post-menopausal Cancer Alcohol use Difficulty swallowing Gastric reflux Former smoker Pneumonitis Shortness of breath on exertion History of pain when walking History of echocardiogram History of stress test Abnormal chest CT Shortness of breath Esophageal stricture Osteoarthritis Vertigo Dysequilibrium Chronic back pain Lumbar radiculopathy Chronic neck pain Anxiety and depression GERD (gastroesophageal reflux disease) Occipital neuralgia Health care maintenance Eosinophilic esophagitis Vitamin D deficiency Osteopenia Fibromyalgia Compression fracture of body of thoracic vertebra Cholelithiasis with chronic cholecystitis Preop cardiovascular exam Abnormal ECG Chest pain Hypersomnia History of breast cancer Depression Hypothyroidism HTN (hypertension), benign Home Medications ?Medication ?Instructions ?Recorded ?Last Taken ?Type acetaminophen 500 mg tablet 1,000 mg PO DAILY PRN Pain 09/14/22 Unknown History cholecalciferol (vitamin D3) 1,250 1,250 mcg PO GARZA #20 caps 06/11/23 Unknown Rx mcg (50,000 unit) capsule levothyroxine 150 mcg tablet 150 mcg PO DAILY #90 tabs 01/14/24 Unknown Rx paroxetine HCl 40 mg tablet 40 mg PO DAILY #90 tabs 03/09/24 Unknown Rx amitriptyline 25 mg tablet 25 mg PO QHS #90 tabs 04/20/24 Unknown Rx indapamide 1.25 mg tablet 1.25 mg PO QAM htn #90 tabs 05/08/24 08/07/24 Rx omeprazole 40 mg capsule,delayed 40 mg PO BID gerd #60 caps 05/10/24 08/07/24 Rx release alendronate 70 mg tablet 70 mg PO QWEEK #12 TABLETS 05/22/24 Unknown Rx atenolol 50 mg tablet 50 mg PO DAILY #90 tabs 06/12/24 08/07/24 Rx Allergy/AdvReac Type Severity Reaction Status Date / Time ciprofloxacin (From Cipro) Allergy Intermediate hives Verified 08/07/24 08:54 milk (dairy) Allergy Food Verified 08/07/24 08:54 Allergy Family History Mother Breast cancer Father Cancer Bone and Bladder CA Alcoholism Grandmother Heart disease CVA (cerebral vascular accident) Sister Heart disease Cancer lung COPD (chronic obstructive pulmonary disease) Multiple sclerosis Brother Alcoholism Other Hypertension Surgical History History of esophagogastroduodenoscopy (EGD) History of cardiac catheterization Hx of cholecystectomy Status post breast lumpectomy History of arthroscopic knee surgery History of fusion of cervical spine History of Social History Smoking Status: Former smoker quit date: 08/02/77 Tobacco: How many years used: 5 second hand exposure: No alcohol intake: current alcohol intake frequency: a few times a month substance use type: does not use what type of physical activity do you participate in: none Review of Systems (Anesthesia) ROS Narrative System reviewed and no additional complaints, except as documented.
[2024-08-07 09:13] LABS: Hematocrit 40.8 % (37-47); Hemoglobin 13.3 g/dL (12.0-15.0); Mean Corp Hgb Conc 32.6 g/dL (32-36); Mean Corpuscular Hgb 26.8 pg (27.0-32.0); Mean Corpuscular Volume 82.3 fL (81-99); Mean Platelet Vol. 10.9 fl (6.2-12.0); Platelet Count 255 K/mm3 (150-450); RBC Distribution Width CV 14.6 % (11.6-14.6); RBC Distribution Width SD 43.3 fl (35.1-43.9); Red Blood Count 4.96 M/mm3 (4.2-5.4); White Blood Count 6.8 K/mm3 (4.4-11.0)
--- NOTE | 2024-08-07 10:00 | LARBX_PTH ---
PATIENT: MILTON COKER LOC: [facility] [place] U#:[id number] AGE/SX: 74/F ROOM: RE08/07/[address]: Dr. Liam Engle MD : 1950 BED: DIS: 08/07/2024 SPEC #: [id number] RECD: 08/07/24 16:42 STATUS: JANEE CAROL #: [id number] CORRY: 08/07/24 10:[address]: Liam Engle DEPT: SURGICAL PATHOLOGY RECD BY: Molly Logan ENTERED: 08/08/24 10:49 SP TYPE: LARYNX BX OTHR DR: Dr. 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 Negative for malignancy. See comment. JOHN 08/09/2024 COMMENT The findings may represent benign adenoid tissue. Correlation with clinical findings and appropriate follow up are necessary. MICROSCOPIC DESCRIPTION Slides are reviewed. GROSS DESCRIPTION Received in fixative is one container labeled with the patient's name and designated Excision posterior hypopharyngeal wall mass. The specimen consists of a piece of celeste soft tissue measuring 0.6 x 0.4 x 0.1cm. The entire specimen is submitted in one cassette. JOHN 08/08/2024 TC:5 CPT:10537
--- NOTE | 2024-08-07 10:40 | PCM.DC.SUM ---
Providers Primary Care Physician: Dr. Rohith Alexandre MD Reason For Visit: micro direct laryngoscopy with excision of hypo ph Medications at Discharge Home Medications acetaminophen 500 mg tablet 1,000 mg PO DAILY PRN Pain 09/14/22 cholecalciferol (vitamin D3) 1,250 mcg (50,000 unit) capsule 1,250 mcg PO GAZRA #20 caps 06/11/23 levothyroxine 150 mcg tablet 150 mcg PO DAILY #90 tabs 01/14/24 paroxetine HCl 40 mg tablet 40 mg PO DAILY #90 tabs 03/09/24 amitriptyline 25 mg tablet 25 mg PO QHS #90 tabs 04/20/24 indapamide 1.25 mg tablet 1.25 mg PO QAM htn #90 tabs 05/08/24 omeprazole 40 mg capsule,delayed release 40 mg PO BID gerd #60 caps 05/10/24 alendronate 70 mg tablet 70 mg PO QWEEK #12 TABLETS 05/22/24 atenolol 50 mg tablet 50 mg PO DAILY #90 tabs 06/12/24 Weight / BMI Weight Weight: 90 kg Body Mass Index (BMI) 34.0 ABG / Lab / Microbiology Data 08/07/24 09:00 Laboratory: Laboratory Results - last 24 hr 08/07/24 09:00: WBC 6.8, RBC 4.96, Hgb 13.3, Hct 40.8, MCV 82.3, MCH 26.8 L, MCHC 32.6, RDW Std Deviation 43.3, RDW Coeff of Annie 14.6, Plt Count 255, MPV 10.9 D/C Instructions Discharge Diet: Soft diet Discharge Activity: Return to Normal Activity DC O2, CPAP, BIPAP Needs Home O2 Discharge instructions: No Please Follow Up With: Liam Engle MD When: 2 weeks Meaningful Use Info Meaningful Use Meaningful Use Diagnoses (Choose all that apply): None applicable Ischemic Stroke Statin Dosing Therapy Reference: STATIN DOSE THERAPY REFERENCE: * Patients > 75 years receive moderate or high dose statin therapy. * Patients 75 years or YOUNGER should receive HIGH intensity statin dose unless contraindicated. You will be required to document reason for non-treatment if statin daily dose does not meet guidelines. HIGH DOSE STATIN THERAPY DAILY Atorvastatin > than or = to 40 mg Rosuvastatin > than or = to 20 mg Amlodipine + Atorvastatin > than or = to 2.5/40 mg Ezetimibe + Simvastatin 10/80 mg Simvastatin 80mg Discharge Plan Admission Attending Provider: Liam Engle Primary Care Provider: Rohith Alexandre Instructions Print Language: Hungarian Discharge Orders/Prescriptions Prescriptions: No Action cholecalciferol (vitamin D3) 1,250 mcg (50,000 unit) capsule 1,250 mcg PO GARZA Qty: 20 2RF acetaminophen 500 mg Tablet 1,000 mg PO DAILY PRN (Reason: Pain) levothyroxine 150 mcg tablet 150 mcg PO DAILY Qty: 90 1RF Rx Instructions: Take extra 1/2 tablet (75 mcg) once per week paroxetine HCl 40 mg tablet 40 mg PO DAILY Qty: 90 1RF amitriptyline 25 mg tablet 25 mg PO QHS Qty: 90 1RF indapamide 1.25 mg tablet 1.25 mg PO QAM Qty: 90 1RF omeprazole 40 mg capsule,delayed release(DR/EC) 40 mg PO BID Qty: 60 2RF alendronate 70 mg tablet 70 mg PO QWEEK Qty: 12 1RF atenolol 50 mg tablet 50 mg PO DAILY Qty: 90 1RF Rx Instructions: TAKE 1 TABLET BY MOUTH DAILY FOR BLOOD PRESSURE/HEART RATE Referrals / Follow Up: Rohith Alexandre MD [Primary Care Provider] - Disposition Disposition (needs filled in before D/C Order can be placed): Home, Self Care
--- NOTE | 2024-08-07 10:42 | PCM.OPRPT ---
Operative Report (Standard) Operative Information Date of Procedure: 08/07/24 Pre-Operative Diagnosis: Hypopharyngeal neoplasm Post-Operative Diagnosis: same Surgery/Procedure Performed: micro direct laryngoscopy with excision of hypopharyngeal lesion clinical associate: No Type of Anesthesia: General RN Documented Start/Stop Times: Operation Date: 08/07/24 10:00 Case Time Into Pre-Op 08/07/24 08:40 Procedure Start Time: 11:05 Procedure Stop Time: 11:15 Select all DRAINS/GRAFTS/IMPLANTS that apply: None Estimated Blood Loss: minimal Specimen collected: Yes Description of specimen(s) removed: hypopharyngeal lesion Description of surgery: The patient was taken the op room on 08/07/2024. She was placed in the supine position on the operating table. She was given sufficient general endotracheal anesthesia. The table was turned 90 degrees in a counterclockwise fashion. A tooth guard was placed on the upper dentition. A Dedo laryngoscope inserted in the patient's mouth and the hypopharynx was exposed. The mass was identified the patient was then placed in suspension on the Reyno stand. The operating microscope was then brought into use. The lesion was grasped with cup forceps and excised with scissors. The specimen was sent for permanent section. Hemostasis was achieved with adrenaline on Codman's. Once hemostasis was obtained the Codman's were removed. All instrumentation was removed. The patient was then awoken. She was brought to recovery room in stable condition. Blood loss minimal, replacement none. Sponge, needle, and instrument count were correct at the end of the procedure. Surgical Findings: posterior hypopharyngeal wall mass Complications Complications: No
[2024-08-07] MEDS: Epinephrine (1 mg/ml) 1 MG/ML VIAL (11:10)
--- NOTE | 2024-08-07 11:33 | PCM.POST.ANE ---
Anesthesia: Postop Eval I Current Vital Signs Temperature: 97.4 F Pulse Rate: 76 Blood Pressure: 139/68 Respiratory Rate: 18 Pulse Ox: 95 Assessment Airway patent: Yes Spontaneous unlabored respirations: Yes nausea: No Vomiting: No Anesthesia Complication: No Fluid Hydration Crystalloid volume administer (ml): 800 Total IV fluid infused: 800 Progress Note Anesthesia document: Postop Eval 1 completed: Yes
--- NOTE | 2024-08-07 11:59 | POSTOPAN2_ITS ---
Anesthesia Postop Eval I Sum Postop Eval Completion status Anesthesia document: Postop Eval 1 completed: Yes Anesthesia Postop Eval I Summary Anesthesia Postop Eval I Summary: Anesthesia Postop Eval I: Assessment Summary Airway patent Yes 08/07/24 11:33 REFERENCE [email or web address] Spontaneous unlabored Yes 08/07/24 11:33 REFERENCE [email or web address] respirations Mental status nausea No 08/07/24 11:33 REFERENCE [email or web address].CSIR Vomiting No 08/07/24 11:33 REFERENCE [email or web address] Anesthesia Postop Eval I: Fluid Summary Crystalloid volume administer 800 08/07/24 11:33 REFERENCE [email or web address] (ml) Colloids volume administered ( ml) Blood Product volume administered (ml) Total IV fluid infused 800 08/07/24 11:33 REFERENCE [email or web address] Anesthesia Postop Eval I: Summary Notes Anesthesia Complication No 08/07/24 11:33 REFERENCE [email or web address].CSIR Anesthesia Complication Comment: Post-operative progress note Anesthesia: Postop Eval II Evaluation Mental status: Awake Pain Level: 0 nausea: No Vomiting: No
--- NOTE | 2024-08-07 11:59 | PCM.POSTANE2 ---
Anesthesia Postop Eval I Sum Postop Eval Completion status Anesthesia document: Postop Eval 1 completed: Yes Anesthesia Postop Eval I Summary Anesthesia Postop Eval I Summary: Anesthesia Postop Eval I: Assessment Summary Airway patent Yes 08/07/24 11:33 HAT [email or web address] Spontaneous unlabored Yes 08/07/24 11:33 HAT [email or web address] respirations Mental status nausea No 08/07/24 11:33 HAT [email or web address] Vomiting No 08/07/24 11:33 HAT [email or web address] Anesthesia Postop Eval I: Fluid Summary Crystalloid volume administer 800 08/07/24 11:33 HAT [email or web address] (ml) Colloids volume administered ( ml) Blood Product volume administered (ml) Total IV fluid infused 800 08/07/24 11:33 HAT [email or web address] Anesthesia Postop Eval I: Summary Notes Anesthesia Complication No 08/07/24 11:33 HAT [email or web address].CSIR Anesthesia Complication Comment: Post-operative progress note Anesthesia: Postop Eval II Evaluation Mental status: Awake Pain Level: 0 nausea: No Vomiting: No
== END 2024-08-07 13:12 | disposition home or self-care (01) ==
LOC: SDC 08:35 → AC 08:36
PROVIDERS: PCP Internal Medicine; Referring Provider Otolaryngology; Visit Provider Otolaryngology
PROC: 0CJS8ZZ Inspection of Larynx, Via Natural or Artificial Opening Endoscopic (ICD-10-PCS; CPT 31575; principal; 2024-08-07 09:55)
DX: D10.5 Benign neoplasm of other parts of oropharynx (principal); I10 Essential (primary) hypertension; K21.9 Gastro-esophageal reflux disease without esophagitis; F41.9 Anxiety disorder, unspecified; F32.A Depression, unspecified; E55.9 Vitamin D deficiency, unspecified; M85.80 Other specified disorders of bone density and structure, unspecified site; E03.9 Hypothyroidism, unspecified; G89.29 Other chronic pain; M79.7 Fibromyalgia; M54.2 Cervicalgia; M54.16 Radiculopathy, lumbar region; Z85.3 Personal history of malignant neoplasm of breast; Z87.19 Personal history of other diseases of the digestive system; Z90.49 Acquired absence of other specified parts of digestive tract; Z79.899 Other long term (current) drug therapy; Z79.890 Hormone replacement therapy; Z87.891 Personal history of nicotine dependence
CPT/HCPCS: 31541; 00320; 85027; 88305; J2405

== ENCOUNTER → 2024-09-19 | Outpatient (CLI) | payer MEDICARE, SELFPAY ==
--- NOTE | 2024-09-19 08:09 | ECHOD_ITS ---
Reason For Study Reason For Study: SOB Procedure This was a 2D Doppler, Color Flow transthoracic echocardiogram. Exam performed in department. Left Ventricle Normal LV size. The estimated ejection fraction is 50 %. Normal diastology for age. No regional wall motion abnormalities noted. Right Ventricle Normal RV size. Normal systolic function. Atria The left atrium is mildly enlarged. Normal right atrium. Mitral Valve The mitral valve is structurally normal. No prolapse or stenosis seen. Mild (1+) mitral valve insufficiency. Tricuspid Valve Normal tricuspid valve. Trivial tricuspid valve insufficiency. Unable to estimate RV systolic pressure due to insufficient tricuspid regurgitant envelope. Aortic Valve Trisinus/trileaflet aortic valve. Mild focal aortic valve thickening. There is no aortic stenosis. Pulmonic Valve Normal pulmonic valve. Trivial pulmonic valve insufficiency. Great Vessels Normal sized aortic root. Pericardium/Pleural No pericardial effusion. MMode/2D Measurements & Calculations LVIDd: 4.8 cm IVSd: 0.95 cm Ao root diam: 3.2 cm LVIDs: 3.6 cm LVPWd: 0.84 cm RVDd: 3.2 cm FS: 24.9 % LAV(MOD-bp): 34.9 ml LVAd ap4: 28.6 cm2 LVAd ap2: 26.4 cm2 LAV(MOD-bp) Indexed: 17.9 ml/m2 LVLd ap4: 7.8 cm LVLd ap2: 7.6 cm LAV(MOD-sp2): 27.7 ml EDV(MOD-sp4): 89.0 ml EDV(MOD-sp2): 76.9 ml LAV(MOD-sp4): 40.1 ml EDV(sp4-el): 89.2 ml EDV(sp2-el): 77.6 ml LVAs ap4: 18.0 cm2 LVAs ap2: 16.7 cm2 LVLs ap4: 6.8 cm LVLs ap2: 6.9 cm ESV(MOD-sp4): 40.1 ml ESV(MOD-sp2): 35.1 ml ESV(sp4-el): 40.2 ml ESV(sp2-el): 34.1 ml EF(MOD-sp4): 55.0 % EF(MOD-sp2): 54.3 % EF(sp4-el): 54.9 % SV(MOD-sp4): 48.9 ml SV(MOD-sp2): 41.8 ml SV(sp4-el): 48.9 ml SI(MOD-sp4): 25.1 ml/m2 SI(MOD-sp2): 21.5 ml/m2 LA A4 area: 15.3 cm2 LA dimension(2D): 3.7 cm RA A4 area: 12.3 cm2 TAPSE: 1.9 cm Time Measurements MV dec time: 0.24 sec Doppler Measurements & Calculations MV E max terell: 66.8 cm/sec Lat Peak E' Terell: 6.6 cm/sec Med Peak E' Terell: 5.0 cm/sec MV A max terell: 77.4 cm/sec E/E' lat: 10.1 E/E' med: 13.4 MV E/A: 0.86 Ao V2 max: 126.7 cm/sec LV V1 max: 98.8 cm/sec MV dec slope: 275.1 cm/sec2 Ao max P.4 mmHg LV V1 max P.9 mmHg Ao V2 mean: 90.1 cm/sec LV V1 mean P.2 mmHg Ao mean P.6 mmHg LV V1 mean: 70.5 cm/sec Ao V2 VTI: 23.9 cm LV V1 VTI: 22.3 cm AV (velocity ratio): 0.93 PA V2 max: 88.8 cm/sec ECHO/Echo Complete Interpretation Summary The estimated ejection fraction is 50 %. Mild (1+) mitral valve insufficiency. Mild focal aortic valve thickening. The left atrium is mildly enlarged. Ordering Physician: Thai Hurst Referring Physician: Rohith Alexandre Performed By: Ciarra Xiong RDCS
[2024-09-19 09:17] VITALS: PULSE 100; PULSE 88; PULSE 89; PULSE 93; PULSE 94; PULSE 95; PULSE 96; O2SAT 92; O2SAT 93; O2SAT 95; O2SAT 97
--- NOTE | 2024-09-25 12:09 | PCM.PSN.6M ---
PSN 6 Minute Walk Test 6 Minute Walk Test 6 Minute Walk Test: 6 Minute Walk Test PSN:6-Minute Walk Test Start: 09/19/24 09:16 Freq: Status: Active Protocol: RESP.6MINW Document 09/19/24 09:17 JR (Rec: 09/19/24 09:19 JR [id number]) 6 Minute Walk Test Date Performed 09/19/24 Time Performed 08:15 Height 5 ft 4 in Weight: 190 lb Weight in Pounds 190.[address]: gerry Assistive device None used: Pre-test Oxygen Delivery Room Air Method Pulse Ox (%) 97 Pulse Rate (60-100 89 beats/min) Dyspnea Zac Scale ( 0 0-10) Exertion Zac Scale 6 (6-20) 1st minute Oxygen Delivery Room Air Method Pulse Ox (%) 97 Pulse Rate (60-100 88 beats/min) 2nd minute Oxygen Delivery Room Air Method Pulse Ox (%) 93 Pulse Rate (60-100 94 beats/min) 3rd minute Oxygen Delivery Room Air Method Pulse Ox (%) 95 Pulse Rate (60-100 96 beats/min) 4th minute Oxygen Delivery Room Air Method Pulse Ox (%) 95 Pulse Rate (60-100 100 beats/min) 5th minute Oxygen Delivery Room Air Method Pulse Ox (%) 92 Pulse Rate (60-100 100 beats/min) 6th minute Oxygen Delivery Room Air Method Pulse Ox (%) 97 Pulse Rate (60-100 93 beats/min) Dyspnea Zac Scale ( 2 0-10) Exertion Zac Scale 11 (6-20) Post-test Oxygen Delivery Room Air Method Pulse Ox (%) 97 Pulse Rate (60-100 95 beats/min) Full Laps Walked 19 Partial Lap, Number 0 of Tiles Walked Total Distance 1121 Walked (ft) Interpretation Interpretation: The patient ambulated 1121 feet over the course of 6 minutes beginning on room air without assistive devices. Pretesting oxygen saturation was noted to be 97% on room air. With ambulation, the denice oxygen saturation was 92%. This represents a significant exertional oxygen desaturation, consistent with a pulmonary limitation to exercise tolerance. Recommendations Recommendations: There is no indication for the use of supplemental oxygen at this time. However, close interval follow-up is recommended, given the degree of oxygen desaturation noted during this study.
== END | disposition home or self-care (01) ==
LOC: PSN 08:09
PROVIDERS: PCP Internal Medicine; Referring Provider Internal Medicine Critical Care Medicine; Visit Provider Internal Medicine Critical Care Medicine
DX: R06.02 Shortness of breath (principal)
CPT/HCPCS: 93306; 94618

== ENCOUNTER → 2024-11-03 | Outpatient (CLI) | payer MEDICARE, SELFPAY ==
[2024-11-03 16:26] LABS: ALB/GLOB Ratio 1.6 RATIO (0.9-2.4); AST(SGOT) 33 U/L (<=31); Alanine Aminotransfer ALT/SGPT 46 U/L (<=34); Albumin, Serum 4.3 g/dL (3.4-4.8); Alkaline Phosphatase 53 U/L (35-104); Anion Gap 12 (5-15); BUN 15 mg/dL (4-19); BUN/Creat Ratio 15.5 RATIO (10-20); Calcium,Total 10.2 mg/dL (7.6-11.0); Chloride 101 mmol/L (98-108); Cholesterol 173 mg/dL (<=200); Creatinine, Serum 0.97 mg/dL (0.70-1.20); EST Glomerular Filtration Rate 62 (>60); Globulin 2.7 g/dL (2.2-4.2); Glucose 134 mg/dL (70-99); High Density Lipoprotein 43 mg/dL; Low Density Lipoprotein Calc. 100 mg/dL; Potassium 3.8 mmol/L (3.3-5.1); Sodium Level 138 mmol/L (133-145); Total Bilirubin 0.51 mg/dL (0.00-1.30); Triglycerides 150 mg/dL; Very Low Density Lipoprotein 30 mg/dL (5-40); cholesterol:hdl ratio screen 4.05
== END | disposition home or self-care (01) ==
LOC: BIMLAB 13:44
PROVIDERS: PCP Internal Medicine; Referring Provider Internal Medicine; Visit Provider Internal Medicine
DX: E03.9 Hypothyroidism, unspecified (principal); I10 Essential (primary) hypertension
CPT/HCPCS: 36415; 80053; 80061; 84443

== ENCOUNTER → 2024-11-21 | Outpatient (CLI) | payer MEDICARE, SELFPAY ==
[2024-11-21 15:29] LABS: Mucous, Urine 0 SEEN /hpf (<or=2+)
[2024-11-21 16:38] LABS: Color, Urine Amber (Yellow); Glucose, Dipstick Normal (Normal); Ketone-Dipstick Negative (Negative); Leukocyte Esterase-Dipstick Negative /ul (Negative); Nitrite-Dipstick Positive (Negative); Occult Blood-Urine Negative /ul (Negative); Protein-Dipstick 100 mg/dl (Negative); Urine Clarity Cloudy (Clear); Urine Urobilinogen 8 mg/dl (Normal)
[2024-11-21 16:43] LABS: Urine Bilirubin Dipstick 6 mg/dL (Negative)
[2024-11-21 16:48] LABS: ALB/GLOB Ratio 1.6 RATIO (0.9-2.4); AST(SGOT) 39 U/L (<=31); Alanine Aminotransfer ALT/SGPT 43 U/L (<=34); Albumin, Serum 4.3 g/dL (3.4-4.8); Alkaline Phosphatase 61 U/L (35-104); Anion Gap 12 (5-15); BUN 16 mg/dL (4-19); BUN/Creat Ratio 16.3 RATIO (10-20); Calcium,Total 9.4 mg/dL (7.6-11.0); Carbon Dioxide 23.9 mmol/L (21.0-32.0); Chloride 100 mmol/L (98-108); Creatinine, Serum 0.97 mg/dL (0.70-1.20); EST Glomerular Filtration Rate 62 (>60); Globulin 2.7 g/dL (2.2-4.2); Glucose 98 mg/dL (70-99); Potassium 3.8 mmol/L (3.3-5.1); Protein, Total 6.9 g/dL (5.9-8.4); Sodium Level 135 mmol/L (133-145); Total Bilirubin 0.85 mg/dL (0.00-1.30); Vitamin D,25 Hydroxy 58.9 ng/mL (30-100)
[2024-11-21 17:07] LABS: Red Blood Cells-Urine 0-5 SEEN /hpf (0-5); White Blood Cells 0-5 SEEN /hpf (0-5)
[2024-11-21 17:08] LABS: Squamous Epithelial Cells - UA 0-5 SEEN /hpf (5-10)
[2024-11-21 17:11] LABS: Hyaline Cast 0 SEEN /lpf (0-5)
[2024-11-21 17:12] LABS: Bacteria 2+ /hpf (None Seen)
[2024-11-23 10:08] LABS: QNTFERON TB Mitogen Value > 10.00 IU/mL (.); QNTFERON TB Nil Value 0.15 IU/mL (.); QNTFERON TB1+ Ag Value 0.13 IU/mL (.); QNTFERON TB2+ Ag Value 0.12 IU/mL (.); QNTIFERON TB Positive Criteria Negative (Negative)
== END | disposition home or self-care (01) ==
LOC: LAB 14:19
PROVIDERS: Student in an Organized Health Care Education/Training Program; PCP Internal Medicine; Referring Provider Internal Medicine; Visit Provider Internal Medicine
DX: R30.0 Dysuria (principal); R74.8 Abnormal levels of other serum enzymes; M85.80 Other specified disorders of bone density and structure, unspecified site; K20.0 Eosinophilic esophagitis
CPT/HCPCS: 36415; 80053; 81001; 82306; 86480; 87086; 87088; 87186

== ENCOUNTER → 2024-11-27 | Outpatient (CLI) | payer MEDICARE, SELFPAY ==
--- NOTE | 2024-11-27 08:00 | MRI_ITS ---
PROCEDURE: SPINE THORACIC (ROUTINE) 11/27/2024 REASON FOR EXAM: PAIN TECHNIQUE: Noncontrast thoracic spine MRI. Multiplanar and multisequence images were obtained. FINDINGS: Seasonal Recruiter view with note of vertebral osseous fusion C5-6. Nonacute anterior wedge superior endplate compression fracture of T12 with moderate loss of vertebral body height. Mild disc bulge suggested T11-12 and T12-L1 with appearance of some left ventral cord flattening at T11-12 axial 35 series 11 with appearance of CSF remaining about the cord. The other vertebral bodies appear within limits. The other disc spaces appear within limits. No abnormal marrow signal identified. No abnormal cord signal identified. No cord compression. Conus appears to terminate at the L1-2 level. 1.5 cm cystic appearing focus medial aspect of the right kidney possibly a renal cyst and can be further evaluated with follow-up nonemergent renal ultrasound. MRI/Spine Thoracic (Routine) IMPRESSION: Nonacute anterior wedge superior endplate compression fracture of T12. Spondylosis/discogenic change lower thoracic spine. No cord compression or abn ormal cord signal. Reading Location: [id number]
== END | disposition home or self-care (01) ==
LOC: MRI 07:30
PROVIDERS: PCP Internal Medicine; Referring Provider Orthopaedic Surgery Orthopaedic Surgery of the Spine; Visit Provider Orthopaedic Surgery Orthopaedic Surgery of the Spine
DX: M54.14 Radiculopathy, thoracic region (principal); S22.080S Wedge compression fracture of T11-T12 vertebra, sequela
CPT/HCPCS: 72146

== ENCOUNTER → 2024-12-05 | Outpatient (CLI) | payer MEDICARE, SELFPAY ==
[2024-12-05 10:02] LABS: ALB/GLOB Ratio 1.6 RATIO (0.9-2.4); AST(SGOT) 24 U/L (<=31); Alanine Aminotransfer ALT/SGPT 36 U/L (<=34); Albumin, Serum 4.2 g/dL (3.4-4.8); Alkaline Phosphatase 53 U/L (35-104); Anion Gap 12 (5-15); BUN 21 mg/dL (4-19); BUN/Creat Ratio 21.5 RATIO (10-20); Carbon Dioxide 25.7 mmol/L (21.0-32.0); Chloride 101 mmol/L (98-108); Creatinine, Serum 0.98 mg/dL (0.70-1.20); EST Glomerular Filtration Rate 62 (>60); Globulin 2.6 g/dL (2.2-4.2); Glucose 114 mg/dL (70-99); Potassium 3.6 mmol/L (3.3-5.1); Protein, Total 6.7 g/dL (5.9-8.4); Sodium Level 138 mmol/L (133-145); Total Bilirubin 0.53 mg/dL (0.00-1.30)
== END | disposition home or self-care (01) ==
LOC: LAB 08:45
PROVIDERS: PCP Internal Medicine; Referring Provider Internal Medicine; Visit Provider Internal Medicine
DX: R74.8 Abnormal levels of other serum enzymes (principal)
CPT/HCPCS: 36415; 80053

== ENCOUNTER → 2025-01-10 | Outpatient (CLI) | payer MEDICARE, SELFPAY ==
--- OUTSIDE RECORDS SUMMARY | 2025-01-10 20:39 | XMS RPT_ITS | CCD ---
Author Organization [facility] CliniSymn Care Team Providers Care Acid Correction Hand Name Role Phone MARLEY VASQUEZ Unavailable Unavailable RICHMOND HENRIQUEZ Unavailable Unavailable MARLEY VASQUEZ F Unavailable Unavailable MARLEY VASQUEZ F Unavailable Unavailable Dave Fournier Unavailable Unavailable Dave Fournier Unavailable Unavailable Richmond Ricks Unavailable Unavailable Dr. Steve Alexandre Primary Care Provider [phone] Baldomero, Dr. Newberry Attending Provider [phone] Dr. Steve Alexandre Referring Provider [phone] CHE[place]Y Woods Attending Provider UnavailDr. Steve Cage Primary Care Provider 1(33 [phone]) Dr. Steve Alexandre Attending Provider [phone])2 Dr. Steve Alexandre Referring Provider [phone])2 [place] Woods Attending Provider Dr. Steve Alexis Primary Care Provider 1(33 0) Dr. Steve Alexandre Referring Provider [phone])2 Dr. Steve Alexandre Attending Provider [phone])2 Dr. Steve Alexandre Primary Care Provider 1(33 0) Dr. Steve Alexandre Referring Provider [phone])2 Dr. Km Alberts Emergency Provider Dr. Abraham Yepez Admit Provider Dr. Abraham Yepez Attending Provider Lucho, Dr. Rosario Other Provider Baldomero Dr. Newberry Primary Care Provider [phone] Baldomero, Dr. Newberry Attending Provider [phone])2 Baldomero, Dr. Newberry Referring Provider [phone])2 Baldomero, Dr. Newberry Primary Care Provider [phone] Baldomero, Dr. Newberry Attending Provider [phone] Baldomero, Dr. Newberry Referring Provider [phone])2 BALDOMERO, STEVE BARTLETTDICTA Primary Care Unav ailable BOYD, RADHA GREENBERG Attending Unavailable Baldomero SAL, Steve Luna Primary Care Provider [phone] Baldomero SAL, Dr. Newberry Primary Care Provider Kadie SAL, Dr. Wheeler Attending Provider Kadie SAL, Dr. Wheeler Referring Provider Baldomero SAL, Dr. Newberry Referring Provider [phone] Dr. Thai Hurst DO Attending Provider Dr. Thai Hurst DO Referring Provider Dr. Kalyan Adler MD Attending Provider Dr. Yordan Shen MD Attending Provider Dr. Chester Siegel MD Attending Provider Dr. Thai Hurst DO Other Provider Baldomero SAL, Dr. Newberry Attending Provider [phone] Delvis PAL, Dina Russell Attending Provider Otilia Reed Attending Provider Dr. Steve Alexandre MD Primary Care Provider Dr. Yordan Shen MD Referring Provider MATT LEMA MD Primary Care Unavailable MATT LEMA MD Attending Unavailable STEVE ALEXANDRE MD Consulting Unavailable MATT LEMA MD Admitting Unavailable PROVIDER, UNKNOWN Consulting Unavailable MATT LEMA MD Attending Unavailable ANGELA JACOBS MD Referring Unavailable OLEGHE, EFEWESTELABE Consulting Unavailable MATT LEMA MD Admitting Unavailable MATT LEMA MD Primary Care Unavailable PROVIDER, UNKNOWN Consulting Unavailable Thai Hurst Attending Unavailable Oleghe, Efewongbe Primary Care Unavailable Oleghe, Efewongbe Referring Unavailable Oleghe, Efewongbe Referring Unavailable Oleghe, Efewongbe Attending Unavailable Oleghe, Efewongbe Primary Care Unavailable Oleghe, Efewongbe Attending Unavailable Oleghe, Efewongbe Primary Care Unavailable Shen, Yordan Referring Unavailable Shen, Yordan Attending Unavailable Oleghe, Efewongbe Primary Care Unavailable Thai Hurst Referring Unavailable Thai Hurst Attending Unavailable Oleghe, Efewongbe Primary Care Unavailable Friend, Rfanco Referring Unavailable Friend, Franco Attending Unavailable Friend, Franco Consulting Unavailable Oleghe, Efewongbe Primary Care Unavailable Dina Edmondson Attending Unavailable Oleghe, Efewongbe Primary Care Unavailable Oleghe, Efewongbe Referring Unavailable Oleghe, Efewongbe Referring Unavailable Shen, Yordan Attending Unavailable Oleghe, Efewongbe Primary Care Unavailable Oleghe, Efewongbe Primary Care Unavailable Oleghe, Efewongbe Referring Unavailable Oleghe, Efewongbe Attending Unavailable Oleghe, Efewongbe Referring Unavailable Oleghe, Efewongbe Attending Unavailable Oleghe, Efewongbe Primary Care Unavailable Oleghe, Efewongbe Referring Unavailable Oleghe, Efewongbe Attending Unavailable Oleghe, Efewongbe Primary Care Unavailable Oleghe, Efewongbe Primary Care Unavailable Babar Englein Referring Unavailable Babar Englein Attending Unavailable Friend, Franco Referring Unavailable Friend, Franco Attending Unavailable Oleghe, Efewongbe Primary Care Unavailable Oleghe, Efewongbe Attending Unavailable Oleghe, Efewongbe Primary Care Unavailable Oleghe, Efewongbe Referring Unavailable Shen, Yordan Attending Unavailable Oleghe, Efewongbe Primary Care Unavailable Oleghe, Efewongbe Referring Unavailable Oleghe, Efewongbe Primary Care Unavailable Chester Siegel Attending Unavailable Oleghe, Efewongbe Referring Unavailable Oleghe, Efewongbe Attending Unavailable Oleghe, Efewongbe Primary Care Unavailable Dina Edmondson Referring Unavailable Dina Edmondson Attending Unavailable Oleghe, Efewongbe Primary Care Unavailable Oleghe, Efewongbe Primary Care Unavailable Matt Lema Attending Unavailable Otilia Cameron Referring Unavailable Otilia Cameron Attending Unavailable Oleghe, Efewongbe Primary Care Unavailable Oleghe, Efewongbe Referring Unavailable Otilia Cameron Attending Unavailable Oleghe, Efewongbe Primary Care Unavailable Oleghe, Efewongbe Referring Unavailable Oleghe, Efewongbe Attending Unavailable Oleghe, Efewongbe Primary Care Unavailable Otilia Cameron Attending Unavailable Oleghe, Efewongbe Referring Unavailable Oleghe, Efewongbe Primary Care Unavailable Kalyan Adler Attending Unavailable Oleghe, Efewongbe Primary Care Unavailable Otilia Cameron Attending Unavailable Oleghe, Efewongbe Primary Care Unavailable Oleghe, Efewongbe Referring Unavailable Thai Hurst Referring Unavailable Thai Hurst Attending Unavailable Thai Hurst Consulting Unavailable Oleghe, Efewongbe Primary Care Unavailable Oleghe, Efewongbe Primary Care Unavailable Oleghe, Efewongbe Referring Unavailable Oleghe, Efewongbe Attending Unavailable OLEGHE, EFEWONGBE B Primary Care Unavailable PANDA MCGUIRE II Attending UnavailDr. Steve Kwan MD Primary Care Provider Dr. Thai Hurst DO Attending Provider Dr. Steve Alexandre MD Referring Provider Dina Theodore Referring Provider Ricci Sellers Attending Provider Allergies Allergy Classification Reported Allergen(s) Allergy Type Date of Onset Reaction(s) Facility (15 sources) Ciprofloxacin; Translations: [CIPROFLOXACIN] [facility] dairy products Allergy to substance 2 Food Allergy [facility] Work Phone: (11 sources) cow milk allergenic extract Drug Allergy 2 Food Allergy [facility] (2 sources) Seasonal allergy; Translations: [SEASONAL ALLERGIES] Allergy to substance 5 Other: See Comments [facility] (1 source) Ciprofloxacin Drug Allergy 5 [facility] (1 source) Milk Drug allergy (disorder) 5 [facility] Medications Current Medications Medication Drug Class(es) Dates Sig (Normalized) Sig (Original) acetaminophen 500 mg oral tablet (9 sources) Start: 09-14-2022 take 2 tablets by mouth once daily as needed for pain Acetaminophen 500 mg Tablet Active 1000 mg PO DAILY as needed for Pain September 14, 2022 1:00am Start: 09-14-2022 take 1000 mg by mout h once daily Acetaminophen Active 1000 MG PO DAILY September 14, 2022 1:00am [id number] 200 actuat albuterol 0.09 mg/actuat metered dose inhaler (5 sources) beta2-Adrenergic Agonist Start: 08-23-2024 Albuterol Sulfate 90 mcg/actuation HFA aerosol inhaler Active 2 NMA INHALATION Q4H as needed for shortness of breath or wheezing 8.5 August 23, 2024 1:00am administer with spacer atenolol 50 mg oral tablet (20 sources) beta-Adrenergic Demetria Start: 11-17-2018 End: 12-28-2024 take 1 tablet by mouth once daily Atenolol 50 mg tablet Active 50 mg PO DAILY 90 December 28, 2024 5:12pm TAKE 1 TABLET BY MOUTH DAILY FOR BLOOD PRESSURE/HEART RATE benoxinate hydrochloride 4 mg/ml / fluorescein sodium 3 mg/ml ophthalmic solution (2 sources) Diagnostic Dye Start: 06-21-2024 End: 06-22-2024 fluorescein-benoxi telly 0.3-0.4 % 1 Drop (FLURESS) Start: 06-21-2024 End: 06-22-2024 1 Drop, BOTH EYES, DIRECT ED, Starting on Wed06/21/24 at 1430, Until Wed06/22/24 at 0229, Administer for applanation tonometry. In the event of a Fluress shortage, administer Leelee-Fluor 1 drop into both eyes as directed for applanation tonometry levothyroxine sodium 0.15 mg oral tablet (20 sources) l-Thyroxine Start: 01-14-2024 End: 10-05-2024 take 0.5 tablet by mouth every week Levothyroxine 150 mcg tablet Active 150 ug PO DAILY October 05, 2024 5:46pm Take extra 1/2 tablet (75 mcg) once per week Start: 12-25-2020 End: 01-14-2024 take 1 tablet by mouth once daily Levothyroxine 150 mcg tablet Discontinued 150 ug PO DAILY October 15, 2023 9:06am January 14, 2024 4:20pm Start: 11-26-2020 End: 12-25-2020 take 1 tablet by mouth once daily Levothyroxine 175 mcg tablet Discontinued 175 ug PO DAILY November 26, 2020 12:00am December 25, 2020 1:03pm Start: 08-23-2019 End: 11-26-2020 Levothyroxine (Synthroid) 12 5 mcg tablet Discontinued 150 ug PO DAILY August 23, 2019 3:08pm November 26, 2020 4:19pm Start: 11-17-2018 End: 08-23-2019 take 1 tablet by mouth once daily Levothyroxine (Synthroid) 125 mcg tablet Discontinued 125 ug PO DAILY November 17, 2018 12:00am August 23, 2019 3:08pm Start: 09-14-2014 levothyroxine (SYNTHROID) 100 mcg tablet 09/14/2014 Active tropicamide 10 mg/ml ophthalmic solution (2 sources) Anticholinergic Start: 06-21-2024 End: 06-22-2024 tropicamide 1 % 1 Drop (MYDRIACYL) Start: 06-21-2024 End: 06-22-2024 1 Drop, BOTH EYES, DIRECT ED, Starting on Wed06/21/24 at 1430, Until Wed06/22/24 at 0229, Administer for dilation Completed/Discontinued Medications Medication Drug Class(es) Dates Sig (Normalized) Sig (Original) acetaminophen 325 mg / HYDROcodone bitartrate 5 mg oral tablet (12 sources) Opioid Agonist Start: 09-18-2019 End: 09-20-2019 Hydrocodone-Acetami nophen 1 TABLET tablet Discontinued 1 {tbl} PO EVERY 6 HOURS NEEDED as needed for Pain 8 2 September 18, 2019 September 19, 2019 1:00am September 20, 2019 1:08am Start: 09-18-2019 End: 09-20-2019 take 1 tablet by mouth every six hours as needed Hydrocodone-Acetaminophen Discontinued 1 TABLET PO EVERY 6 HOURS NEEDED 8 2 September 18, 2019 September 20, 2019 1:08am alendronic acid 70 mg oral tablet (20 sources) Bisphosphonate Start: 09-03-2021 End: 05-22-2024 take 1 tablet by mouth every week Alendronate 70 mg tablet Discontinued 70 mg PO EVERY WEEK November 04, 2023 9:38am May 22, 2024 4:03pm Start: 08-23-2019 End: 12-02-2020 take 1 tablet by mouth every week Alendronate (Fosamax) 70 mg tablet Discontinued 70 mg PO EVERY WEEK August 23, 2019 1:00am December 02, 2020 2:28pm amitriptyline hydrochloride 25 mg oral tablet (20 sources) Tricyclic Antidepressant Start: 12-02-2020 End: 10-23-2024 take 1 tablet by mouth at bedtime Amitriptyline 25 mg tablet Discontinued 25 mg PO AT BEDTIME April 20, 2024 4:29pm October 23, 2024 4:37pm baclofen 10 mg oral tablet (20 sources) gamma-Aminobutyric Acid-ergic Agonist Start: 04-08-2022 End: 03-12-2023 take 1 tablet by mouth three times daily as needed for muscle spasms Baclofen 10 mg tablet Discontinued 10 mg PO THREE TIMES A DAY as needed for muscle spasm April 08, 2022 3:55pm March 12, 2023 10:24am 60 actuat budesonide 0.09 mg/actuat dry powder inhaler (12 sources) Corticosteroid Start: 11-17-2018 End: 11-24-2018 take 90 ug by inhalation twice daily Budesonide (Pulmicort Flexhaler) 90 mcg/actuation aerosol powdr breath activated Discontinued 2 NMA INHALATION TWICE A DAY November 17, 2018 12:00am November 24, 2018 1:00pm calcium carbonate 1250 mg oral tablet (12 sources) Start: 09-04-2019 End: 03-03-2021 take 1 tablet by mouth twice daily at mealtime Calcium Carbonate 500 MG tablet Discontinued 500 mg PO TWICE DAILY WITH MEALS September 04, 2019 1:00am March 03, 2021 10:01am cephalexin 500 mg oral capsule (20 sources) Cephalosporin Antibacterial Start: 04-20-2022 End: 07-17-2022 take 1 capsule by mouth twice daily Cephalexin 500 mg capsule Discontinued 500 mg PO TWICE A DAY April 20, 2022 12:00am July 17, 2022 1:53pm Start: 03-03-2021 End: 03-13-2021 take 1 capsule by mouth every twelve hours Cephalexin 500 mg capsule Discontinued 500 mg PO Q12H 20 March 03, 2021 12:00am March 12, 2021 12:00am March 13, 2021 12:01am cetirizine hydrochloride 10 mg oral capsule (13 sources) Histamine-1 Receptor Antagonist Start: 11-17-2018 End: 03-03-2021 take 1 capsule by mouth once daily Cetirizine (Zyrtec) 10 mg capsule Discontinued 10 mg PO DAILY November 17, 2018 12:00am March 03, 2021 10:01am cholecalciferol 1.25 mg oral capsule (20 sources) Vitamin D Start: 12-03-2020 End: 12-28-2024 take 1 capsule by mouth every week Cholecalciferol (Vitamin D3) 1,250 mcg (50,000 unit) capsule Discontinued 1250 ug PO EVERY WEEK September 11, 2021 6:01pm September 14, 2022 11:32am Cholecalciferol (Vitamin D3) (Vitamin D3) 5,000 UNIT capsule (12 sources) Start: 09-04-2019 End: 03-03-2021 take 1 capsule by mouth once daily Cholecalciferol (Vitamin D3) (Vitamin D3) 5,000 UNIT capsule Discontinued 5000 U PO DAILY September 04, 2019 1:00am March 03, 2021 10:02am Start: 09-04-2019 End: 03-03-2021 take 1 capsule by mouth once daily Cholecalciferol (Vitamin D3) (Vitamin D3) 5,000 UNIT capsule Discontinued 5000 UNIT PO DAILY September 04, 2019 12:00am March 03, 2021 9:02am Start: 09-04-2019 End: 03-03-2021 take 1 capsule by mouth once daily Cholecalciferol (Vitamin D3) (Vitamin D3) 5,000 UNIT capsule Discontinued 5000 UNIT PO DAILY September 04, 2019 1:00am March 03, 2021 10:02am indapamide 1.25 mg oral tablet (20 sources) Thiazide-like Diuretic Start: 08-23-2019 End: 12-06-2024 take 1 tablet by mouth once daily in the morning Indapamide 1.25 mg tablet Discontinued 1.25 mg PO EVERY MORNING November 06, 2024 4:35pm December 06, 2024 11:11pm meclizine hydrochloride 12.5 mg oral tablet (8 sources) Antiemetic Start: 09-15-2022 End: 10-19-2022 take 1 tablet by mouth four times daily as needed for dizziness Meclizine 12.5 mg Tablet Discontinued 12.5 mg PO 4 TIMES DAILY NEEDED as needed for DIZZINESS/VERTIGO September 15, 2022 1:00am October 19, 2022 10:31am meloxicam 15 mg oral tablet (7 sources) Nonsteroidal Anti-inflammatory Drug Start: 10-19-2022 End: 03-12-2023 take 1 tablet by mouth once daily Meloxicam 15 mg tablet Discontinued 15 mg PO DAILY October 19, 2022 12:00am March 12, 2023 10:24am Mometasone (Asmanex Hfa) 200 mcg/actuation HFA aerosol inhaler (4 sources) Start: 11-15-2024 End: 01-04-2025 Mometasone (Asmanex Hfa) 200 mcg/actuation HFA aerosol inhaler Discontinued 2 NMA INHALATION TWICE A DAY November 15, 2024 12:00am January 04, 2025 3:53pm Start: 11-15-2024 Mometasone (As manex Hfa) 200 mcg/actuation HFA aerosol inhaler Active 2 NMA INHALATION TWICE A DAY November 15, 2024 12:00am montelukast 10 mg oral tablet (12 sources) Leukotriene Receptor Antagonist Start: 11-17-2018 End: 08-23-2019 take 1 tablet by mouth once daily in the evening Montelukast (Singulair) 10 mg tablet Discontinued 10 mg PO EVERY EVENING November 17, 2018 12:00am August 23, 2019 3:07pm nitrofurantoin, macrocrystals 25 mg / nitrofurantoin, monohydrate 75 mg oral capsule (4 sources) Nitrofuran Antibacterial Start: 11-22-2024 End: 01-04-2025 take 1 capsule by mouth twice daily at mealtime Nitrofurantoin Monohyd/M-Cryst (Macrobid) 100 mg capsule Discontinued 100 mg PO TWICE A DAY November 22, 2024 12:00am January 04, 2025 3:53pm must administer with a meal/food omeprazole 40 mg delayed release oral capsule (20 sources) Proton Pump Inhibitor Start: 08-31-2019 End: 05-10-2024 Omeprazole 40 mg capsule,delayed release(DR/EC) Discontinued 40 mg PO 1700 90 March 16, 2023 4:25pm May 10, 2024 3:06pm Start: 08-23-2019 End: 03-16-2023 take 1 capsule by mouth once daily Omeprazole 40 mg capsule,delayed release(DR/EC) Discontinued 40 mg PO DAILY August 23, 2019 1:00am August 31, 2019 3:06pm PARoxetine hydrochloride 40 mg oral tablet (20 sources) Serotonin Reuptake Inhibitor Start: 01-24-2021 End: 09-18-2024 take 1 tablet by mouth once daily Paroxetine Hcl 40 mg tablet Discontinued 40 mg PO DAILY March 09, 2024 9:48am September 18, 2024 4:59pm Start: 11-17-2018 End: 01-24-2021 take 1 tablet by mouth twice daily Paroxetine Hcl 20 mg tablet Discontinued 20 mg PO TWICE A DAY November 17, 2018 12:00am January 24, 2021 1:47pm Start: 02-04-2006 End: 08-23-2019 take 1 tablet by mouth once daily Paroxetine Hcl 20 mg tablet Discontinued 20 mg PO DAILY August 23, 2019 1:00am August 23, 2019 3:09pm potassium chloride 20 meq extended release oral tablet (12 sources) Start: 12-03-2020 End: 01-01-2022 take 1 tablet by mouth twice daily Potassium Chloride 20 mEq tablet extended release Discontinued 20 meq PO TWICE A DAY December 03, 2020 12:00am January 01, 2022 2:14pm triamcinolone acetonide 0.055 mg/actuat metered dose nasal spray (12 sources) Corticosteroid Start: 11-17-2018 End: 11-24-2018 Triamcinolone Acetonide (Nasacort) 55 mcg aerosol,spray Discontinued 2 NMA INTRANASAL DAILY November 17, 2018 12:00am November 24, 2018 1:00pm Start: 11-17-2018 End: 11-24-2018 Triamcinolone Acetonide (Jorge acort) 55 mcg aerosol,spray Discontinued 2 SPRAY INTRANASAL DAILY November 17, 2018 12:00am November 24, 2018 1:00pm Umeclidinium (12 sources) Anticholinergic Start: 11-17-2018 End: 11-24-2018 take 62.5 ug by inhalation once daily Umeclidinium (Incruse Ellipta) 62.5 mcg/actuation blister with device Discontinued 1 NMA INHALATION DAILY November 17, 2018 12:00am November 24, 2018 1:00pm Start: 11-17-2018 End: 11-24-2018 take 62.5 ug by inhalation once daily Umeclidinium (Incruse Ellipta) 62.5 mcg/actuation blister with device Discontinued 1 INH INHALATION DAILY November 16, 2018 11:00pm November 24, 2018 12:00pm Start: 11-17-2018 End: 11-24-2018 take 62.5 ug by inhalation once daily Umeclidinium (Incruse Ellipta) 62.5 mcg/actuation blister with device Discontinued 1 INH INHALATION DAILY November 17, 2018 12:00am November 24, 2018 1:00pm Problems Active Problems Problem Classification Problem Date Documented Date Episodic/Chronic Anxiety disorders (20 sources) Mixed anxiety and depressive disorder; Translations: [Anxiety disorder, unspecified] Onset: 6 Chronic Comment on above: ON MED Biliary tract disease (12 sources) Calculus of gallbladder with cholecystitis; Translations: [Calculus of gallbladder with chronic cholecystitis without obstruction] 09-25-2019 Episodic Blindness and vision defects (5 sources) Bilateral regular astigmatism; Translations: [Regular astigmatism, bilateral] Onset: 6 06-21-2024 Episodic Cancer of breast (1 source) Malignant tumor of breast ; Translations: [Malignant neoplasm of unspecified site of unspecified female breast] Onset: 6 02-10-2024 Chronic Cancer of breast (12 sources) History of malignant neoplasm of breast; Translations: [Personal history of malignant neoplasm of breast] 09-05-2019 Episodic Cataract (2 sources) Bilateral senile combined form cataracts of eyes; Translations: [Combined forms of age-related cataract, bilateral] Onset: 6 06-21-2024 Chronic Conditions associated with dizziness or vertigo (20 sources) Dizziness; Translations: [Dizziness and giddiness] 09-14-2022 Episodic Comment on above: OFF AND ON IN LAST F EW WEEKS Conduction disorders (11 sources) Right bundle branch block; Translations: [Unspecified right bundle-branch block] 09-14-2022 Chronic Esophageal disorders (20 sources) Eosinophilic esophagitis; Translations: [Eosinophilic esophagitis] Onset: 4 Chronic Essential hypertension (20 sources) Benign hypertension; Translations: [Essential (primary) hypertension] Onset: 5 Chronic Genitourinary symptoms and ill-defined conditions (8 sources) Dysuria; Translations: [Dysuria] Onset: 5 Episodic Headache, including migraine (1 source) Headache; Translations: [Headache] Onset: 8 Episodic Headache, including migraine (1 source) Headache, including migraine Onset: 8 Joint disorders and dislocations; trauma-related (1 source) Derangement of knee; Translations: [Unspecified internal derangement of unspecified knee] Onset: 6 02-10-2024 Chronic Mood disorders (12 sources) Depressive disorder; Translations: [Depression] 09-05-2019 Chronic Comment on above: ON MED Nonspecific chest pain (12 sources) Chest pain; Translations: [Chest pain, unspecified] 09-25-2019 Episodic Nutritional deficiencies (12 sources) Vitamin D deficiency; Translations: [Vitamin D deficiency, unspecified] 12-02-2020 Chronic Osteoarthritis (19 sources) Arthritis; Translations: [Unspecified osteoarthritis, unspecified site] 11-26-2020 Chronic Other and unspecified benign neoplasm (2 sources) Nevus of choroid; 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] Onset: 6 06-21-2024 Episodic Other bone disease and musculoskeletal deformities (17 sources) Osteopenia; Translations: [Other specified disorders of bone density and structure, unspecified site] 09-03-2021 Episodic Other bone disease and musculoskeletal deformities (5 sources) Other specified disorders of bone density and structure, unspecified site; Translations: [Disorder of bone and cartilage, unspecified] Episodic Other circulatory disease (9 sources) H/O: hypertension; Translations: [Personal history of other diseases of the circulatory system] 09-14-2022 Episodic Other circulatory disease (2 sources) Personal history of other diseases of the circulatory system; Translations: [Personal history of other diseases of circulatory system] 09-14-2022 Episodic Other connective tissue disease (12 sources) History of cervical spine fusion; Translations: [Arthrodesis status] 09-05-2019 Episodic Other connective tissue disease (12 sources) Fibromyalgia; Translations: [Fibromyalgia] 12-02-2020 Episodic Other connective tissue disease (2 sources) Pain in right leg; Translations: [Pain in right leg] Onset: Episodic Other eye disorders (2 sources) Bilateral vitreous floaters; Translations: [Other vitreous opacities, bilateral] Onset: 6 06-21-2024 Chronic Other fractures (12 sources) Compression fracture of thoracic spine; Translations: [Wedge compression fracture of unspecified thoracic vertebra, initial encounter for closed fracture] 11-26-2020 Episodic Other fractures (11 sources) Fracture of twelfth thoracic vertebra; Translations: [Wedge compression fracture of T11-T12 vertebra, initial encounter for closed fracture] 09-22-2024 Episodic Other liver diseases (5 sources) Elevated liver enzymes level; Translations: [Abnormal levels of other serum enzymes] 11-05-2024 Episodic Other liver diseases (1 source) Abnormal levels of other serum enzymes; Translations: [Abnormal levels of other serum enzymes] Onset: 5 Episodic Other lower respiratory disease (18 sources) Dyspnea; Translations: [Shortness of breath] 12-29-2023 Episodic Other lower respiratory disease (2 sources) Shortness of breath; Translations: [Shortness of breath] Onset: 5 Episodic Other nervous system disorders (1 source) Other chronic pain; Translations: [Other chronic pain] Onset: 5 Chronic Other nervous system disorders (3 sources) Paresthesia of skin; Translations: [Disturbance of skin sensation] Episodic Other nutritional; endocrine; and metabolic disorders (1 source) Metabolic syndrome X; Translations: [Dysmetabolic syndrome X] Onset: 6 02-10-2024 Chronic Other screening for suspected conditions (not mental disorders or infectious disease) (5 sources) CT of chest abnormal; Translations: [Abnormal findings on diagnostic imaging of other specified body structures] 04-01-2024 Chronic Other screening for suspected conditions (not mental disorders or infectious disease) (13 sources) Electrocardiogram abnormal; Translations: [Abnormal electrocardiogram [ECG] [EKG]] Onset: 6 09-25-2019 Episodic Residual codes; unclassified (12 sources) Hypersomnia; Translations: [Hypersomnia, unspecified] 09-25-2019 Chronic Residual codes; unclassified (6 sources) Other specified postprocedural states; Translations: [Status post breast lumpectomy] 09-05-2019 Episodic Spondylosis; intervertebral disc disorders; other back problems (20 sources) Cervico-occipital neuralgia; Translations: [Occipital neuralgia] Onset: 4 Episodic Thyroid disorders (20 sources) Hypothyroidism; Translations: [Hypothyroidism, unspecified] Onset: 6 Chronic Unclassified (1 source) New Patient / [id number]() Onset: 8 Urinary tract infections (14 sources) Cystitis; Translations: [Cystitis, unspecified without hematuria] Onset: 4 03-03-2021 Episodic Past or Other Problems Problem Classification Problem Date Documented Da te Episodic/Chronic Other and unspecified benign neoplasm (1 source) Nevus of choroid of left eye; Translations: [Benign neoplasm of left choroid] Onset: 02-07-2019 02-07-2019 Episodic Other and unspecified benign neoplasm (1 source) 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; Translations: [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] Onset: 08-30-2024 Episodic Other connective tissue disease (1 source) Muscle pain; Translations: [Myalgia and myositis, unspecified] Onset: 02-04-2006 02-10-2024 Episodic Other connective tissue disease (1 source) Bicipital tenosynovitis; Translations: [Bicipital tendinitis, unspecified shoulder] Onset: 02-17-2006 02-10-2024 Episodic Other gastrointestinal disorders (1 source) Dysphagia, unspecified; Translations: [Dysphagia, unspecified] Onset: 05-31-2024 Episodic Unclassified (1 source) New Patient; Translations: [New Patient] Onset: 02-23-2018 Results Test Name Value Interpretation Reference Range Facility MR/Juan 01-04-2025 MR/PATZELDA MEEK [facility] Medical Records Department [address] [facility] [place] [address] PAT - Anesthesia 01/04/25 1744 MR#: [id number] Acct: [id number] Name: ALMA XIONG Rep #: [id number] : 1950 74 From: Mk Osborn MD PCP: Dr. 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 When Was Last Pacemaker Check QUESTION #4 FULL TEXT: You/Your Family Experience fever (hyperthermia) with Anesthesia Last Oral Intake Last Oral intake: Last Oral Intake NPO since Meds taken in AM with sips of water? 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 - crystallizer operator: PONV - crystallizer operator Female Yes 01/04/25 15:57 HX of Motion Sickness No 01/04/25 15:57 HX of N/V After Surgery No 01/04/25 15:57 Non-Smoker Yes 01/04/25 15:57 Duration of Surgery greater Yes 01/04/25 15:57 than 60 minutes Number of Risk Factors 3 01/04/25 15:57 PONV Score Moderate Risk 01/04/25 15:57 Height Weight Height Weight: Anesthesia: Height Weight Height 5 ft 4 in 12/15/24 10:29 Respiratory Assessment Respiratory Assessment - crystallizer operator: Respiratory Tract Infection Hx - crystallizer operator Hx Respiratory Tract Infection No 01/04/25 15:57 STOP Sleep Apnea STOP Sleep Apnea - crystallizer operator: STOP Sleep Apnea - crystallizer operator Hx Hypertension Yes: CONTROLLED WITH MED 01/04/25 15:57 Hx Sleep Apnea No 01/04/25 15:57 CPAP No 08/07/24 11:31 BIPAP Do you snore loudly (louder Yes 01/04/25 15:57 than talking or can be heard Do you often feel tired/ Yes 01/04/25 15:57 fatigued/ sleepy during daytime? Has anyone observed you stop No 01/04/25 15:57 breathing during sleep? STOP Results Positive 01/04/25 15:57 QUESTION #5 FULL TEXT : Do you snore loudly (louder than talking or can be heard through closed doors)? 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 Specify any problems Hx of Preganancy in last 3 No 01/04/25 15:57 Months Nurse Filling Out Transfusion DSCHRIBER 01/04/25 15:57 Questions: Date: 01/04/25 01/04/25 15:57 Time: 16:00 01/04/25 15:57 Patient unable to answer at this time (ie. 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 - crystallizer operator: /Reproductive Hx- crystallizer operator Hx Now No 01/04/25 15:57 Gestational Age (in weeks): EDC: Hx Hx Para Hx Section SAB No 01/04/25 15:57 PFSH Medical History (Updated 01/04/25 @ 16:09 by Arleth Yee) Dietary restriction Burning with urination Elevated liver enzymes Thyroid disease Pharyngitis Loss of hearing Wears glasses Post-menopausal Cancer Alcohol use Difficulty swallowing Gastric reflux Former smoker Pneumonitis Shortness of breath on exertion History of pain when walking History of echocardiogram History of stress test Esophageal stricture Osteoarthritis Vertigo Dysequilibrium Chronic back pain Lumbar radiculopathy Chronic neck pain Anxiety and depression GERD (gastroesophageal reflux disease) Occipital neuralgia Health care maintenance Eosinophilic esophagitis Vitamin D deficiency Osteopenia Fibromyalgia Compression fracture of body of thoracic vertebra Cholelithiasis with chronic cholecystitis Preo (more content not included)... Normal [facility] ALBUMIN PLASMAon 01-02-2025 Albumin [Mass/Vol] 3.7 g/dL Normal 3.4 - 5.[address] [facility] Comment on above: Performed By: #### 2 85923 #### [facility],[address] [place], [place] [id number] BMP with eGFRon 01-02-2025 AGE 74 years Normal [facility] Comment on above: Performed By: #### 2 91994 #### [facility],[address] [place] [address] Anion gap [Moles/Vol] 9 mmol/L Low 10 - 20 [facility] Comment on above: Performed By: #### 2 31895 #### [facility],[address] [place] [address] BMP with eGFR Normal [facility] Comment on above: Result Comment: BASI C METABOLIC PANEL Performed By: #### 2 80634 #### [place] [address] Calcium [Mass/Vol] 9.6 mg/dL Normal 8.5 - 10.[address] [facility] Comment on above: Performed By: #### 2 92271 #### [place] [id number] Chloride [Moles/Vol] 101 mmol/L Normal 98 - [address] [facility] Comment on above: Performed By: #### 2 08468 #### [facility],[address],[place] [address] CO2 [Moles/Vol] 33.0 mmol/L High 21.0 - 32.[address] [facility] Comment on above: Performed By: #### 2 87411 #### [address] [address] Creatinine [Mass/Vol] 0.96 mg/dL Normal 0.55 - 1.[address] [facility] Comment on above: Performed By: #### 2 76886 #### [facility],[address] [place] [address]397 eGFR 57 ML/MINUTE Low 60 - [address] [facility] Comment on above: Performed By: #### 2 31518 #### [facility],[address] [place] [address] GFR/1.73 sq M.predicted among non-blacks MDRD (S/P/Bld) [Vol rate/Area] mL/min/{1.73_m2} Normal 60 - [address] [facility] Comment on above: Result Comment: ACCO RDING TO THE NATIONAL KIDNEY DISEASE EDUCATION PROGRAM(NKDE), A NORMAL eGFR IS A VALUE GREATER THAN OR EQUAL TO 60 ML/MIN/1.73 SQ METERS. CHRONIC KIDNEY DISEASE: <60mL/MIN/1.73 SQ METERS KIDNEY FAILURE: <15mL/MIN/1.73 SQ METERS THIS TEST SHOULD ONLY BE USED FOR PATIENTS 18 YEARS OF AGE AND OLDER. Performed By: #### 2 87869 #### [facility],[address] [place] [address] Glucose [Mass/Vol] 83 mg/dL Normal 74 - [address] [facility] Comment on above: Performed By: #### 2 93504 #### [address] [address] Potassium [Moles/Vol] 3.6 mmol/L Normal 3.5 - 5.1 [facility] Comment on above: Performed By: #### 2 53007 #### [address] [address] Sodium [Moles/Vol] 139 mmol/L Normal 136 - [address] [facility] Comment on above: Performed By: #### 2 14783 #### [facility],[address] [place] [address] Urea nitrogen [Mass/Vol] 18 mg/dL Normal 7 - [address] [facility] Comment on above: Performed By: #### 2 72046 #### [facility],[address] [place] [address] CBC + DIFFon 01-02-2025 Baso # 0.02 x10EE3/UL Normal 0.00 - 0.[address] [facility] Comment on above: Performed By: #### 2 78887 #### [facility],[address] [place] [address] Basophils/100 WBC (Bld) 0.3 % Normal 0.0 - 2.[address] [facility] Comment on above: Performed By: #### 2 95173 #### [facility],[address] [place] [address] CBC + DIFF Normal [facility] Comment on above: Result Comment: CBC- COMPLETE BLOOD COUNT Performed By: #### 2 99888 #### [facility],[address] [place] [address] EO # 0.43 x10EE3/UL Normal 0.00 - 0.[address] [facility] Comment on above: Performed By: #### 2 57611 #### [facility],[address] [place] [address] Eosinophils/100 WBC (Bld) 6.7 % Normal 0.0 - 7.[address] [facility] Comment on above: Performed By: #### 2 67500 #### [facility],[address] [place], [place] [id number] Erythrocyte distribution width (RBC) [Ratio] 14.9 % Normal 12.0 - 15.[address] [facility] Comment on above: Performed By: #### 2 33779 #### [facility],[address] [place] [address] Hematocrit (Bld) [Volume fraction] 41.2 % Normal 34.0 - 46.[address] [facility] Comment on above: Performed By: #### 2 36871 #### [facility],[address] [place] [address] Hemoglobin (Bld) [Mass/Vol] 14.0 g/dL Normal 12.0 - 16.[address] [facility] Comment on above: Performed By: #### 2 77888 #### [facility],[address] [place] [address] Lymph # 2.06 x10EE3/UL Normal 0.80 - 2.[address] [facility] Comment on above: Performed By: #### 2 31476 #### [facility],[address] [place], [place] [id number] Lymphocytes/100 WBC (Bld) 32.4 % Normal 20.0 - 45.[address] [facility] Comment on above: Performed By: #### 2 73316 #### [facility],[address] [place] [address] MANUAL DIFF N/A Normal [facility] Comment on above: Performed By: #### 2 76083 #### [facility],[address] [place] [address]6548 MCH (RBC) [Entitic mass] 27 pg Normal 27 - [address] [facility] Comment on above: Performed By: #### 2 14623 #### [facility],[address] [place] [address] MCHC 34 X10 3 Normal 32 - [address] [facility] Comment on above: Performed By: #### 2 01601 #### [facility],[address] [place] [address] MCV (RBC) [Entitic vol] 80 fL Normal 80 - [address] [facility] Comment on above: Performed By: #### 2 62187 #### [facility],[address] [place] [address]759 Bland # 0.45 x10EE3/UL Normal 0.20 - 1.[address] [facility] Comment on above: Performed By: #### 2 33387 #### [facility],[address] [place] [address]49 MONOS % 7.1 % Normal 0.0 - 10.[address] [facility] Comment on above: Performed By: #### 2 79295 #### [facility],[address] [place] [address] Morphology Jacob (Bld) [Interp] N/A Normal [facility] Comment on above: Performed By: #### 2 83512 #### [facility],[address] [place] [address] Neut # 3.41 x10EE3/UL Normal 1.50 - 7.[address] [facility] Comment on above: Performed By: #### 2 27628 #### [facility],[address] [place] [address]691 Neutrophils/100 WBC (Bld) 53.6 % Normal 46.0 - 76.[address] [facility] Comment on above: Performed By: #### 2 58714 #### [facility],[address] [place] [address] PLATELET 275 x10EE3/UL Normal 150 - [address] [facility] Comment on above: Performed By: #### 2 86499 #### [facility],[address] [place] [address] 47972 Platelet mean volume (Bld) [Entitic vol] 8.8 fL Normal 6.6 - 10.[address] [facility] Comment on above: Result Comment: AUTO MATED DIFFERENTIAL Performed By: #### 2 91469 #### [facility],[address] [place] [address]43 RBC 5.18 x 10EE6/UL Normal 4.10 - 5.[address] [facility] Comment on above: Performed By: #### 2 49491 #### [facility],[address] [place] [address]379 WBC 6.4 x 10EE3/UL Normal 4.5 - 10.[address] [facility] Comment on above: Performed By: #### 2 80718 #### [facility],[address] [place] [address] LOWER EXTREMITY RT WOon 0 01-02-2025 CT LOWER EXTREMITY RT WO [place] [id number] Patient: ALMA XIONG Phone#: : 1950 Age: 74 Gender: F Pt. Type: Out Account: [id number] Location: Ordering: MATT LEMA Exam Date: 01/02/2025/13:14 Family Phys: STEVE ALEXANDRE Charge Code: 827841 Physician: Pepin Order #: [id number] Dose#: 34.8 mGy PROCEDURE: CT LOWER EXTREMITY RT WO CONTRAST COMPARISON: None. INDICATIONS: Rubens protocol. TECHNIQUE: Multi-planar CT images were created without intravenous contrast. All CT scans at this facility use dose modulation, iterative reconstruction, and/or weight based dosing when appropriate to reduce radiation dose to as low as reasonably achievable. IV CONTRAST: No IV contrast used,0ml TOTAL DOSE: 34.8 CTDIvol(mGy) FINDINGS: BONES: Moderate severe degenerative changes of the knee are present. Joint space narrowing is most marked in the medial compartment and patellofemoral compartment. Osteophytes at the femoral condyles and tibial plateaus are present. SOFT TISSUES: Negative. No visible soft tissue swelling. EFFUSION: A small suprapatellar joint effusion is present. A popliteal cyst is present. OTHER: Negative. CONCLUSION: 1. Moderately severe degenerative changes of the knee. 2. Small joint effusion is present. Dictated by: Myrna Lind MD on 01/02/2025 at 15:44 Approved by: Myrna Lind MD on 01/02/2025 at 15:[address] [facility] MAGNESIUMon 01-02-2025 Magnesium [Mass/Vol] 1.9 mg/dL Normal 1.8 - 2.[address] [facility] Comment on above: Performed By: #### 2 07954 #### [facility],[address] [place] [address] MRSA Spec Ql Culton 01-03-20 MRSA isol Org specific cx Ql (Unsp spec) STAPHYLOCOCCUS AUREUS CULTURE: No growth Normal [facility] Comment on above: Performed By: #### 1 3317-3 #### [facility] CLIA [id number] [address] [place] [address] STATES OF [facility] TSHon 01-02-2025 TSH Qn 0.40 m[IU]/L Normal 0.35 - 3.[address] [facility] Comment on above: Performed By: #### 2 07007 #### [facility],[address] [place], [place] [id number] Orthopedic Visit Reporton Orthopedic Visit Report [facility] [address] [place] [address] [place] [address] OFFICE VISIT Date of Service: 12/15/24 MR#: [id number] Acct: [id number] Name: ALMA XIONG Rep #: [id number] : 1950 Provider: Dr. Yordan Shen MD Age/Sex: 74/F Location: [facility] [place] Status: Signed Intake Vital Signs 11/15/24 12:46 12/15/24 10:29 Height 5 ft 4 in 5 ft 4 in Weight: 190 lb BMI 32.5 Intake Visit Reasons: THORACIC SPINE Chief Complaint: MRI review Accompanied by: Self Is patient in pain?: Yes Pain scale (1-10): 6 Allergies ciprofloxacin (From Cipro) Allergy (Intermediate, Verified 12/15/24 10:32) hives milk (dairy) Allergy (Verified 12/15/24 10:32) Food Allergy Medications ???Medication ???Instructions ???Recorded ???Confirmed ???Type acetaminophen 500 mg tablet 1,000 mg PO DAILY PRN Pain 3 12/15/24 History cholecalciferol (vitamin D3) 1,250 1,250 mcg PO GARZA #20 caps 3 12/15/24 Rx mcg (50,000 unit) capsule omeprazole 40 mg capsule,delayed 40 mg PO BID gerd #60 caps 4 12/15/24 Rx release alendronate 70 mg tablet 70 mg PO QWEEK #12 TABLETS 4 12/15/24 Rx atenolol 50 mg tablet 50 mg PO DAILY #90 tabs 06/12/24 0 12/15/24 Rx albuterol sulfate 90 mcg/actuation 2 puff inhalation Q4H PRN 12/15/24 Rx aerosol inhaler shortness of breath or wheezing #8.5 grams paroxetine HCl 40 mg tablet 40 mg PO DAILY #90 tabs 09/18/24 0 12/15/24 Rx levothyroxine 150 mcg tablet 150 mcg PO DAILY #90 tabs 10/05/24 12/15/24 Rx amitriptyline 25 mg tablet 25 mg PO QHS #90 tabs 10/23/24 Rx mometasone 200 mcg/actuation HFA 2 puff inhalation BID #13 grams 12/15/24 Rx aerosol inhaler (Asmanex HFA) nitrofurantoin 100 mg PO BID #14 caps 11/22/24 Rx monohydrate/macrocrystals 100 mg capsule (Macrobid) indapamide 1.25 mg tablet 1.25 mg PO QAM htn #90 tabs 12/15/24 Rx Have you fallen in the past year?: No PFSH Medical History Burning with urination Elevated liver enzymes Thyroid disease Pharyngitis Loss of hearing Wears glasses Post-menopausal Cancer Alcohol use Difficulty swallowing Gastric reflux Former smoker Pneumonitis Shortness of breath on exertion History of pain when walking History of echocardiogram History of stress test Abnormal chest CT Shortness of breath Esophageal stricture Osteoarthritis Vertigo Dysequilibrium Chronic back pain Lumbar radiculopathy Chronic neck pain Anxiety and depression GERD (gastroesophageal reflux disease) Occipital neuralgia Health care maintenance Eosinophilic esophagitis Vitamin D deficiency Osteopenia Fibromyalgia Compression fracture of body of thoracic vertebra Cholelithiasis with chronic cholecystitis Preop cardiovascular exam Abnormal ECG Chest pain Hypersomnia History of breast cancer Depression Hypothyroidism HTN (hypertension), benign Surgical History History of esophagogastroduodenoscopy (EGD) History of cardiac catheterization Hx of cholecystectomy Status post breast lumpectomy History of arthroscopic knee surgery History of fusion of cervical spine History of Family History Mother Breast cancer Father Cancer Bone and Bladder CA Alcoholism Grandmother Heart disease CVA (cerebral vascular accident) Sister Heart disease Cancer lung COPD (chronic obstructive pulmonary disease) Multiple sclerosis Brother Alcoholism Other Hypertension Social History Smoking Status: Former smoker quit date: 08/02/77 Tobacco: How many years used: 5 second hand exposure: No alcohol intake: current alcohol intake frequency: a few times a month substance use type: does not use what type of physical activity do you participate in: none HPI THORACIC SPINE Details: This documentation accurately reflects the service provided and the decisions made by me, Dr. Yordan Shen MD 12/15/24 1028. Part of today???s visit was documented by Sarah Mcgee MA, acting as scribe. ALMA XIONG is a 74 year old F here today for thoracic spin MRI review. She denies any recent injections since her last visit. She continues to have rib pain that wraps around. 09/22/2024: ALMA XIONG is a 74 year old F here today for thoracic spine pain. Patient states the thoracic spine has been bothering her for about 5 years. It started 5 years ago in April on Day weekend. She was trying to move a bed and it didn't move and she felt something almost instantly. S (more content not included)... Normal [facility] Anion gap in Serum or Plasma Ordered By: Steve Alexandre on 12-05-2024 Anion gap [Moles/Vol] 12 mmol/L 5-15 [facility] BUN/creatinine ratioOrdered By: Steve Alexandre on 12-05-2024 Urea nitrogen/Creatinine [Mass ratio] 21.5 mg/mg High 10-20 [facility] Bilirubin, totalOrdered By: Steve Alexandre on 12-05-2024 Bilirubin [Mass/Vol] 0.53 mg/dL 0.00-1.30 [facility] Carbon dioxide, total [Moles /volume] in Central venous bloodOrdered By: Steve Jossuejacobo on 12-05-2024 CO2 [Moles/Vol] 25.7 mmol/L 21.0-32.0 [facility] Chloride assayOrdered By: Julieth michael Alexandre on 12-05-2024 Chloride [Moles/Vol] 101 mmol/L 98-108 [facility] Comprehensive Metabolic Prof ilon 12-05-2024 Albumin [Mass/Vol] 4.2 g/dL Normal 3.4-4.8 [facility] Comment on above: Performed By: #### L 500.4050 #### [facility] [address] [place] [place], [address] Albumin/Globulin [Mass ratio] 1.6 {ratio} Normal 0.9-2.4 [facility] Comment on above: Performed By: #### L [id number] #### [facility] [address] [place], [address] ALK PHOS 53 U/L Normal 35-104 [facility] Comment on above: Performed By: #### L 500.4050 #### [facility] [address] [place], [address] ALT [Catalytic activity/Vol] 36 U/L High <=34 [facility] Comment on above: Performed By: #### L 500.4050 #### [facility] [address] [place], [address] AST [Catalytic activity/Vol] 24 U/L Normal <=31 [facility] Comment on above: Performed By: #### L 500.4050 #### [facility] [address] [place], [address] Bilirubin [Mass/Vol] 0.53 mg/dL Normal 0.00-1.30 [facility] Comment on above: Performed By: #### L [id number] #### [facility] [address] [place], [address] BUN/CRE 21.5 RATIO High 10-20 [facility] Comment on above: Performed By: #### L [id number] #### [facility] [address] [place], [address] Calcium [Mass/Vol] 9.0 mg/dL Normal 7.6-11.0 [facility] Comment on above: Performed By: #### L [id number] #### [facility] [address] [place], [address] Chloride [Moles/Vol] 101 mmol/L Normal 98-108 [facility] Comment on above: Performed By: #### L [id number] #### [facility] [address] [place], [address] CO2 [Moles/Vol] 25.7 mmol/L Normal 21.0-32.0 [facility] Comment on above: Performed By: #### L [id number] #### [facility] [address] [place], [address] Creatinine [Mass/Vol] 0.98 mg/dL Normal 0.70-1.20 [facility] Comment on above: Performed By: #### L 500.4050 #### [facility] [address] [place], [address] GAP 12 Normal 5-15 [facility] Comment on above: Performed By: #### L 500.4050 #### [facility] [address] [place], [address] GFR/1.73 sq M.predicted among non-blacks MDRD (S/P/Bld) [Vol rate/Area] 62 mL/min/{1.73_m2} Normal >60 [facility] Comment on above: Result Comment: mL/m in/1.73m2 CKD-EPI Creatinine Equation (2020) Performed By: #### L 500.4050 #### [facility] [address] [place], [address] Globulin (S) [Mass/Vol] 2.6 g/dL Normal 2.2-4.2 [facility] Comment on above: Performed By: #### L 500.4050 #### [facility] [address] [place], [address] Glucose [Mass/Vol] 114 mg/dL High 70-99 [facility] Comment on above: Performed By: #### L 500.4050 #### [facility] [address] [place], [address] Potassium [Moles/Vol] 3.6 mmol/L Normal 3.3-5.1 [facility] Comment on above: Performed By: #### L 500.4050 #### [facility] [address] [place], [address] Sodium [Moles/Vol] 138 mmol/L Normal 133-145 [facility] Comment on above: Performed By: #### L 500.4050 #### [facility] [address] [place], [address] T PROT 6.7 g/dL Normal 5.9-8.4 [facility] Comment on above: Performed By: #### L 500.4050 #### [facility] [address] [place], [address] Urea nitrogen [Mass/Vol] 21 mg/dL High 4-19 [facility] Comment on above: Performed By: #### L 500.4050 #### [facility] [address] [place], [address] Glomerular filtration rate ( GFR) estimation/1.73 sq m using serum, plasma, or whole bOrdered By: Steve Alexandre on 12-05-2024 GFR/1.73 sq M.predicted among non-blacks MDRD (S/P/Bld) [Vol rate/Area] 62 mL/min/{1.73_m2} >60 [facility] Comment on above: mL/min/1.73m2 CKD-EP I Creatinine Equation (2020) Laboratory - Chemistry and C hemistry - challengeOrdered By: Steve Alexandre on 12-05-2024 AST [Catalytic activity/Vol] 24 U/L <32 [facility] Potassium measurement (mass/ volume)Ordered By: Steve Alexandre on 12-05-2024 Potassium (Unsp spec) [Mass/Vol] 3.6 mmol/L 3.3-5.1 [facility] Serum creatinine measurement (mass/volume)Ordered By: Steve Alexandre on 12-05-2024 Creatinine [Mass/Vol] 0.98 mg/dL 0.70-1.20 [facility] Serum globulin measurementOr dered By: Steve Alexandre on 12-05-2024 Globulin (S) [Mass/Vol] 2.6 g/dL 2.2-4.2 [facility] Serum glucose measurement (m ass/volume)Ordered By: Steve Alexandre on 12-05-2024 Glucose [Mass/Vol] 114 mg/dL High 70-99 [facility] Serum or plasma alanine hernadez otransferase (ALT) measurementOrdered By: Steve Alexandre on 12-05-2024 ALT [Catalytic activity/Vol] 36 U/L High <35 [facility] Serum or plasma albumin nereida urement (mass/volume)Ordered By: Steve Alexandre on 12-05-2024 Albumin [Mass/Vol] 4.2 g/dL 3.4-4.8 [facility] Serum or plasma albumin/glob ulin mass ratioOrdered By: Steve Alexandre on 12-05-2024 Albumin/Globulin [Mass ratio] 1.6 {ratio} 0.9-2.4 [facility] Serum or plasma alkaline wilfredo sphatase measurementOrdered By: Juliethmichael Alexandre on 12-05-2024 ALP [Catalytic activity/Vol] 53 U/L 35-104 [facility] Serum or plasma calcium nereida urement (mass/volume)Ordered By: Brittanydaniela Marcumkellyivan on 12-05-2024 Calcium [Mass/Vol] 9.0 mg/dL 7.6-11.0 [facility] Serum or plasma urea nitroge n measurement (mass/volume)Ordered By: Juliethmichael Alexandre on 12-05-2024 Urea nitrogen [Mass/Vol] 21 mg/dL High 4-19 [facility] Sodium levelOrdered By: Hiram farhan Jossuekellyivan on 12-05-2024 Sodium [Moles/Vol] 138 mmol/L 133-145 [facility] Total proteinOrdered By: Jersey bradford Baldomero on 12-05-2024 Protein [Mass/Vol] 6.7 g/dL 5.9-8.4 [facility] Spine Thoracic (Routine)on 0 11-27-2024 Spine Thoracic (Routine) [facility] Imaging Services [address], [place] [id number] Spine Thoracic (Routine) MR#: [id number] Acct: [id number] Name: ALMA XIONG Rep #: [id number] : 1950 F 74 From: Duarte Teixeira MD PCP: Dr. Steve Alexandre MD Status: REG CLI Study: Spine Thoracic (Routine) Date of Exam: Exam# [id number] Ordering Dr: Yordan Shen MD PROCEDURE: SPINE THORACIC (ROUTINE) 11/27/2024 REASON FOR EXAM: PAIN TECHNIQUE: Noncontrast thoracic spine MRI. Multiplanar and multisequence images were obtained. FINDINGS: Guide Rail Cleaner view with note of vertebral osseous fusion C5-6. Nonacute anterior wedge superior endplate compression fracture of T12 with moderate loss of vertebral body height. Mild disc bulge suggested T11-12 and T12-L1 with appearance of some left ventral cord flattening at T11-12 axial 35 series 11 with appearance of CSF remaining about the cord. The other vertebral bodies appear within limits. The other disc spaces appear within limits. No abnormal marrow signal identified. No abnormal cord signal identified. No cord compression. Conus appears to terminate at the L1-2 level. 1.5 cm cystic appearing focus medial aspect of the right kidney possibly a renal cyst and can be further evaluated with follow-up nonemergent renal ultrasound. MRI/Spine Thoracic (Routine) IMPRESSION: Nonacute anterior wedge superior endplate compression fracture of T12. Spondylosis/discogenic change lower thoracic spine. No cord compression or abnormal cord signal. Reading Location: [id number] CC: Dr. Yordan Shen MD; Dr. Steve Alexandre MD Health Service Worker: Signed Normal [facility] Urine Cultureon 11-25-2024 [facility] Strep anginosus [place] Count 80,000-100,000 Mixed Gram Positive Organisms Mixed Gram Positive Organisms MIXC Mixed contaminants. Submit a new specimen if indicated. Strep anginosus: REACTION Ampicillin Islt GREG <=0.25 Penicillin G Islt GREG <=0.06 S Cefotaxime Islt GREG <=0.12 cefTRIAXone Islt GREG <=0.12 S Clindamycin Islt GREG <=0.25 S Linezolid Islt GREG <=2 S Vancomycin Islt GREG 0.25 S Normal [facility] Comment on above: Performed By: #### L 400.0001, M100.2200 #### [facility] [address] [place], [address] Quantiferon TB-Gold+on 11-23 QFT MITOGEN MALISSA > 10.00 Normal . [facility] Comment on above: Performed By: #### P SUIV #### [facility] [address] [place], [address] QFT NIL VALUE 0.15 IU/mL Normal . [facility] Comment on above: Performed By: #### P SUIV #### [facility] [address] [place], [address] QFT TB GOLD+ Comment Normal . [facility] Comment on above: Result Comment: Hayden tiFERON-TB Gold Plus is a qualitative indirect test for M tuberculosis infection (including disease) and is intended for use in conjunction with risk assessment, radiography, and other medical and diagnostic evaluations. The QuantiFERON-TB Gold Plus result is determined by subtracting the Nil value from either TB antigen (Ag) value. The Mitogen tube serves as a control for the test. Performed By: #### P SUIV #### [facility] [address] [place], [address] QFT TB POS CRIT Negative Normal Negative [facility] Comment on above: Result Comment: No r esponse to M tuberculosis antigens detected. Infection with M tuberculosis is unlikely, but high risk individuals should be considered for additional testing (ATS/IDSA/CDC Clinical Practice Guidelines, 2017). The reference range is an Antigen minus Nil result of <0.35 IU/mL. The specimen received for QuantiFERON testing was incubated by the ordering institution. Specific procedures outlined in our Directory of Services and in the package insert for the QuantiFERON Gold (In Tube) test must be followed to enable for proper stimulation of cells for the production of interferon gamma. Chemiluminescence immunoassay methodology Performed at: [facility] [id number] Management Assistant: Edin Prater PhD, Phone: [phone] Performed By: #### P SUIV #### [facility] [address] [place], [address] QFT TB1+ AG MALISSA 0.13 IU/mL Normal . [facility] Comment on above: Performed By: #### P SUIV #### [facility] [address] [place], [address] QFT TB2+ AG MALISSA 0.12 IU/mL Normal . [facility] Comment on above: Performed By: #### P SUIV #### [facility] [address] [place], [address] Anion gap in Serum or Plasma Ordered By: Steve Alexandre on 11-21-2024 Anion gap [Moles/Vol] 12 mmol/L 5-15 [facility] BUN/creatinine ratioOrdered By: Steve Alexandre on 11-21-2024 Urea nitrogen/Creatinine [Mass ratio] 16.3 mg/mg 10-20 [facility] Bilirubin Test strip Ql (U)O rdered By: Steve Alexandre on 11-21-2024 Bilirubin Ql (U) 6 mg/dL High Negative [facility] Comment on above: COLOR OF URINE MAY A FFECT DIPSTICK RESULTS. Bilirubin, totalOrdered By: Steve Alexandre on 11-21-2024 Bilirubin [Mass/Vol] 0.85 mg/dL 0.00-1.30 [facility] Carbon dioxide, total [Moles /volume] in Central venous bloodOrdered By: Steve Alexandre on 11-21-2024 CO2 [Moles/Vol] 23.9 mmol/L 21.0-32.0 [facility] Chloride assayOrdered By: Julieth Alexandre on 11-21-2024 Chloride [Moles/Vol] 100 mmol/L 98-108 [facility] Comprehensive Metabolic Prof ilon 11-21-2024 Albumin [Mass/Vol] 4.3 g/dL Normal 3.4-4.8 [facility] Comment on above: Performed By: #### L 506.1001, L500.4050 #### [facility] [address] [place], [address] Albumin/Globulin [Mass ratio] 1.6 {ratio} Normal 0.9-2.4 [facility] Comment on above: Performed By: #### L 506.1001, L500.4050 #### [facility] [address] [place], [address] ALK PHOS 61 U/L Normal 35-104 [facility] Comment on above: Performed By: #### L 506.1001, L500.4050 #### [facility] [address] [place], [address] ALT [Catalytic activity/Vol] 43 U/L High <=34 [facility] Comment on above: Performed By: #### L 506.1001, L500.4050 #### [facility] [address] [place], [address] AST [Catalytic activity/Vol] 39 U/L High <=31 [facility] Comment on above: Performed By: #### L 506.1001, L500.4050 #### [facility] [address] [place], [address] Bilirubin [Mass/Vol] 0.85 mg/dL Normal 0.00-1.30 [facility] Comment on above: Performed By: #### L 506.1001, L500.4050 #### [facility] [address] [place], [address] BUN/CRE 16.3 RATIO Normal 10-20 [facility] Comment on above: Performed By: #### L 506.1001, L500.4050 #### [facility] [address] [place], [address] Calcium [Mass/Vol] 9.4 mg/dL Normal 7.6-11.0 [facility] Comment on above: Performed By: #### L 506.1001, L500.4050 #### [facility] [address] [place], [address] Chloride [Moles/Vol] 100 mmol/L Normal 98-108 [facility] Comment on above: Performed By: #### L 506.1001, L500.4050 #### [facility] [address] [place], [address] CO2 [Moles/Vol] 23.9 mmol/L Normal 21.0-32.0 [facility] Comment on above: Performed By: #### L 506.1001, L500.4050 #### [facility] [address] [place], [address] Creatinine [Mass/Vol] 0.97 mg/dL Normal 0.70-1.20 [facility] Comment on above: Performed By: #### L 506.1001, L500.4050 #### [facility] [address] [place], [address] GAP 12 Normal 5-15 [facility] Comment on above: Performed By: #### L 506.1001, L500.4050 #### [facility] [address] [place], [address] GFR/1.73 sq M.predicted among non-blacks MDRD (S/P/Bld) [Vol rate/Area] 62 mL/min/{1.73_m2} Normal >60 [facility] Comment on above: Result Comment: mL/m in/1.73m2 CKD-EPI Creatinine Equation (2020) Performed By: #### L 506.1001, L500.4050 #### [facility] [address] [place], [address] Globulin (S) [Mass/Vol] 2.7 g/dL Normal 2.2-4.2 [facility] Comment on above: Performed By: #### L 506.1001, L500.4050 #### [facility] [address] [place], [address] Glucose [Mass/Vol] 98 mg/dL Normal 70-99 [facility] Comment on above: Performed By: #### L 506.1001, L500.4050 #### [facility] [address] [place], [address] Potassium [Moles/Vol] 3.8 mmol/L Normal 3.3-5.1 [facility] Comment on above: Performed By: #### L 506.1001, L500.4050 #### [facility] [address] [place], [address] Sodium [Moles/Vol] 135 mmol/L Normal 133-145 [facility] Comment on above: Performed By: #### L 506.1001, L500.4050 #### [facility] [address] [place], [address] T PROT 6.9 g/dL Normal 5.9-8.4 [facility] Comment on above: Performed By: #### L 506.1001, L500.4050 #### [facility] [address] [place], [address] Urea nitrogen [Mass/Vol] 16 mg/dL Normal 4-19 [facility] Comment on above: Performed By: #### L 506.1001, L500.4050 #### [facility] [address] [place], [address] Epithelial cells.squamous LM Ql (Urine sed)Ordered By: Steve Alexandre on 11-21-2024 Epithelial cells.squamous LM.HPF (Urine sed) [#/Area] 0 /[HPF] 5-10 [facility] GFR/1.73 sq M.predicted yvan g non-blacks MDRD (S/P/Bld) [Vol rate/Area]Ordered By: Steve Alexandre on 11-21-2024 Estimated GFR (MDRD) Non-Af Amer 62 >60 [facility] Comment on above: mL/min/1.73m2 CKD-EP I Creatinine Equation (2020) Gastroenterology Visit Repor ton 11-21-2024 Gastroenterology Visit Report [facility] [address] 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 Reports she isnt really concerned about her swallowing and feels she has that under control. Pt continues omeprazole 40mg but feels its not working well for her and would like to try something else. [facility] Medical History Elevated liver enzymes Thyroid disease Pharyngitis Loss of hearing Wears glasses Post-menopausal Cancer Alcohol use Difficulty swallowing Gastric reflux Former smoker Pneumonitis Shortness of breath on exertion History of pain when walking History of echocardiogram History of stress test Abnormal chest CT Shortness of breath Esophageal stricture Osteoarthritis Vertigo Dysequilibrium Chronic back pain Lumbar radiculopathy Chronic neck pain Anxiety and depression GERD (gastroesophageal reflux disease) Occipital neuralgia Health care maintenance Eosinophilic esophagitis Vitamin D deficiency Osteopenia Fibromyalgia Compression fracture of body of thoracic vertebra Cholelithiasis with chronic cholecystitis Preop cardiovascular exam Abnormal ECG Chest pain Hypersomnia History of breast cancer Depression Hypothyroidism HTN (hypertension), benign Surgical History History of esophagogastroduodenoscopy (EGD) History of cardiac catheterization Hx of cholecystectomy Status post breast lumpectomy History of arthroscopic knee surgery History of fusion of cervical spine History of Family History Mother Breast cancer Father Cancer Bone and Bladder CA Alcoholism Grandmother Heart disease CVA (cerebral vascular accident) Sister Heart disease Cancer lung COPD (chronic obstructive pulmonary disease) Multiple sclerosis Brother Alcoholism Other Hypertension Social History Smoking Status: Former smoker quit date: 08/02/77 Tobacco: How many years used: 5 second hand exposure: No alcohol intake: current alcohol intake frequency: a few times a month substance use type: does not use what type of physical activity do you participate in: none HPI HPI Chief Complaint: EOE Details: ALMA XIONG, is a 74 F who presents to the office today for f/u. BGI established in Apr 2024 with hx of esophageal stricture, OA, GERD< breast cancer, HTN and fibromyalgia. Last EGD in 2019 with EOE. Pt reports cough and dysphagia despite PPI. Colonoscopy .12.19; - Hemorrhoids found on perianal exam. - Diverticulosis in the sigmoid colon and in the descending colon. Biopsied. - The examination was otherwise normal EGD 09.06.19; - Esophageal mucosal changes consistent with eosinophilic esophagitis. Biopsied distally and in mid esophagus Small hiatal hernia noted EG junction widely patent at 38cm. - Erythematous mucosa in the antrum. Biopsied. - Normal examined duodenum. Biopsied EGD 05.04.25; - Esophageal mucosal changes secondary to eosinophilic esophagitis. - Small hiatal hernia. - Chronic gastritis. Biopsied. - Normal first portion of the duodenum. - Biopsies were taken with a cold forceps for evaluation of eosinophilic esophagitis. Biopsies consistent with EOE OV 11.21.24 Pt increased the omeprazole to BID since her EGD. She has not noticed much of a difference in her cough or heartburn. She feels the omeprazole is no longer working for her. When she lays down she has regurgitation and reflux. She is having issues with swallowing on occasion but this is not her main concern. She trues to avoid cows milk as this was her highest food allergy. ROS Const Constitutional: Positive for weakness; No fatigue, fever(s) or weight change ENT ENT: Positive for difficulty swallowing Cardio Cardiology: Posit (more content not included)... Normal [facility] Glomerular filtration rate ( GFR) estimation/1.73 sq m using serum, plasma, or whole bOrdered By: Steve Alexandre on 11-21-2024 GFR/1.73 sq M.predicted among non-blacks MDRD (S/P/Bld) [Vol rate/Area] 62 mL/min/{1.73_m2} >60 [facility] Comment on above: mL/min/1.73m2 CKD-EP I Creatinine Equation (2020) Glucose Ql (U)Ordered By: Julieth Alexandre on 11-21-2024 Urine Glucose (UA) Normal mg/dl Normal [facility] Hyaline casts LM.LPF (Urine sed) [#/Area]Ordered By: Steve Alexandre on 11-21-2024 Hyaline casts (Urine sed) [#/Area] 0 /[LPF] 0-5 [facility] Hyaline casts LM Ql (Urine sed) 0 SEEN /lpf 0-5 [facility] Ketones Test strip Ql (U)Ord ered By: Steve Alexandre on 11-21-2024 Ketones Ql (U) Negative Negative [facility] - Chemistry and C hemistry - challengeOrdered By: Steve Alexandre on 11-21-2024 AST [Catalytic activity/Vol] 39 U/L High <32 [facility] M. tuberculosis tuberculin s marah IFN-g Ql (Bld)Ordered By: Otilia Cameron on 11-21-2024 TB Test (QFT) Antigen 1 0.13 IU/mL . [facility] Microscopic analysis of urin e for red blood cells (RBC)Ordered By: Steve Alexandre on 11-21-2024 Microscopic analysis of urine for red blood cells (RBC) 0-5 SEEN /hpf 0-5 [facility] Urine RBC 0-5 SEEN /hpf 0-5 [facility] Mucus LM Ql (Urine sed)Order ed By: Steve Alexandre on 11-21-2024 Mucus Ql (Urine sed) 0 SEEN /hpf [facility] Nitrite Test strip Ql (U)Ord ered By: Steve Alexandre on 11-21-2024 Nitrite Ql (U) Positive High Negative [facility] Potassium (Unsp spec) [Mass/ Vol]Ordered By: Steve Alexandre on 11-21-2024 Potassium [Moles/Vol] 3.8 mmol/L 3.3-5.1 [facility] Potassium measurement (mass/ volume)Ordered By: Steve Alexandre on 11-21-2024 Potassium (Unsp spec) [Mass/Vol] 3.8 mmol/L 3.3-5.1 [facility] Protein Test strip Ql (U)Ord ered By: Steve Alexandre on 11-21-2024 Protein Ql (U) 100 mg/dl High Negative [facility] Qualitative QuantiFERON-TB g old in tube testOrdered By: Otilia Cameron on 11-21-2024 M. tuberculosis tuberculin stim IFN-g Ql (Bld) 0.13 IU/mL . [facility] Quantiferon-TB Gold Plus gloria tOrdered By: Otilia Cameron on 11-21-2024 TB Test (QFT) Comment . [facility] Comment on above: QuantiFERON-TB Gold Plus is a qualitative indirect test forM tuberculosis infection (including disease) and isintended for use in conjunction with risk assessment,radiography, and other medical and diagnostic evaluations.The QuantiFERON-TB Gold Plus result is determined bysubtracting the Nil value from either TB antigen (Ag)value. The Mitogen tube serves as a control for the test. TB Test (QFT) Antigen 2 0.12 IU/mL . [facility] TB Test (QFT) Mitogen > 10.00 IU/mL . [facility] TB Test (QFT) Nil 0.15 IU/mL . [facility] TB Test (QFT) Positive Criteria Negative Negative [facility] Comment on above: No response to M tub erculosis antigens detected.Infection with M tuberculosis is unlikely, but high riskindividuals should be considered for additional testing(ATS/IDSA/CDC Clinical Practice Guidelines, 2017). Thereference range is an Antigen minus Nil result of <0.35IU/mL.The specimen received for QuantiFERON testing was incubatedby the ordering institution. Specific procedures outlinedin our Directory of Services and in the package insert forthe QuantiFERON Gold (In Tube) test must be followed toenable for proper stimulation of cells for the productionof interferon gamma. Chemiluminescence immunoassaymethodologyPerformed at: [facility] [id number] Director: Edin Prater PhD, Phone: [phone] Serum creatinine measurement (mass/volume)Ordered By: Steve Alexandre on 11-21-2024 Creatinine [Mass/Vol] 0.97 mg/dL 0.70-1.20 [facility] Serum globulin measurementOr dered By: Steve Alexandre on 11-21-2024 Globulin (S) [Mass/Vol] 2.7 g/dL 2.2-4.2 [facility] Serum glucose measurement (m ass/volume)Ordered By: Steve Alexandre on 11-21-2024 Glucose [Mass/Vol] 98 mg/dL 70-99 [facility] Serum or plasma alanine hernadez otransferase (ALT) measurementOrdered By: Steve Alexandre on 11-21-2024 ALT [Catalytic activity/Vol] 43 U/L High <35 [facility] Serum or plasma albumin nereida urement (mass/volume)Ordered By: Steve Alexandre on 11-21-2024 Albumin [Mass/Vol] 4.3 g/dL 3.4-4.8 [facility] Serum or plasma albumin/glob ulin mass ratioOrdered By: Steve Alexandre on 11-21-2024 Albumin/Globulin [Mass ratio] 1.6 {ratio} 0.9-2.4 [facility] Serum or plasma alkaline wilfredo sphatase measurementOrdered By: Steve Alexandre 11-21-2024 ALP [Catalytic activity/Vol] 61 U/L 35-104 [facility] Serum or plasma calcium nereida urement (mass/volume)Ordered By: Steve Alexandre on 11-21-2024 Calcium [Mass/Vol] 9.4 mg/dL 7.6-11.0 [facility] Serum or plasma urea nitroge n measurement (mass/volume)Ordered By: Steve Alexandre 11-21-2024 Urea nitrogen [Mass/Vol] 16 mg/dL 4-19 [facility] Sodium levelOrdered By: Hiram Alexandre on 11-21-2024 Sodium [Moles/Vol] 135 mmol/L 133-145 [facility] Squamous epithelial cells de tection in urine sediment by light microscopyOrdered By: Steve Alexandre on 11-21-2024 Epithelial cells.squamous LM Ql (Urine sed) 0-5 SEEN /hpf 5-10 [facility] Total proteinOrdered By: Jersey Alexandre on 11-21-2024 Protein [Mass/Vol] 6.9 g/dL 5.9-8.4 [facility] Urinalysis, Completeon 11-21 BACTERIA 2+ /hpf Normal None Seen [facility] Comment on above: Order Comment: COLOR OF URINE MAY AFFECT DIPSTICK RESULTS. MANAGING EDITOR TO SPECIFY Performed By: #### L 400.0001, M100.2200 #### [facility] [address] [place], [address] CAST,HYALINE 0 SEEN Normal 0-5 [facility] Comment on above: Order Comment: COLOR OF URINE MAY AFFECT DIPSTICK RESULTS. MANAGING EDITOR TO SPECIFY Performed By: #### L 400.0001, M100.2200 #### [facility] [address] [place], [address] EPI,SQUAMOUS 0-5 SEEN Normal 5-10 [facility] Comment on above: Order Comment: COLOR OF URINE MAY AFFECT DIPSTICK RESULTS. MANAGING EDITOR TO SPECIFY Performed By: #### L 400.0001, M100.2200 #### [facility] [address] [place], [address] RBC 0-5 SEEN Normal 0-5 [facility] Comment on above: Order Comment: COLOR OF URINE MAY AFFECT DIPSTICK RESULTS. MANAGING EDITOR TO SPECIFY Performed By: #### L 400.0001, M100.2200 #### [facility] [address] [place], [address] WBC 0-5 SEEN Normal 0-5 [facility] Comment on above: Order Comment: COLOR OF URINE MAY AFFECT DIPSTICK RESULTS. MANAGING EDITOR TO SPECIFY Performed By: #### L 400.0001, M100.2200 #### [facility] [address] [place], [address] Mucus Ql (Urine sed) 0 SEEN Normal [facility] Comment on above: Order Comment: COLOR OF URINE MAY AFFECT DIPSTICK RESULTS. MANAGING EDITOR TO SPECIFY Performed By: #### L 400.0001, M100.2200 #### [facility] [address] [place] [place], [address] Urine blood detectionOrdered By: Steve Alexandre on 11-21-2024 Urine Occult Blood Negative Negative [facility] Urine clarityOrdered By: Jersey Alexandre on 11-21-2024 Clarity (U) Cloudy Clear [facility] Urine color determinationOrd ered By: Steve Alexandre on 11-21-2024 Color (U) Tamela Yellow [facility] Urine cultureOrdered By: Jersey Alexandre on 11-21-2024 Bacteria identified Cx Nom (U) Strep anginosus Abnormal [facility] Bacteria identified Cx Nom (U) Positive Abnormal [facility] Urine glucose detectionOrder ed By: Steve Alexandre on 11-21-2024 Glucose Ql (U) Normal mg/dl Normal [facility] Urine leukocyte esterase det ection by dipstickOrdered By: Steve Alexandre on 11-21-2024 Leukocyte esterase Test strip Ql (U) Negative Negative [facility] Urine pHOrdered By: Katie Alexandre on 11-21-2024 pH (U) 5.0 [pH] 5.0 - 8.0 [facility] Urine sediment bacteria coun t by microscopy (number/high power field)Ordered By: Steve Alexandre on 11-21-2024 Bacteria LM.HPF (Urine sed) [#/Area] 2 /[HPF] None Seen [facility] Urine specific gravity measu rementOrdered By: Steve Alexandre on 11-21-2024 Specific gravity (U) [Rel density] 1.020 1.002-1.03 0 [facility] Urine urobilinogen measureme ntOrdered By: Steve Alexandre on 11-21-2024 Urobilinogen Ql (U) 8 mg/dl High Normal [facility] Urobilinogen Ql (U)Ordered B y: Steve Alexandre on 11-21-2024 Urobilinogen (U) [Mass/Vol] 8 mg/dL High Normal [facility] Vitamin D, 25-hydroxyOrdered By: Steve Alexandre on 11-21-2024 Vitamin D 25-Hydroxy 58.9 ng/mL 30-100 [facility] Comment on above: Vitamin D StatusDefi ciency: <20 ng/mL (50nmol/L)Insufficiency: 20-30 ng/mL (50-75 nmol/L)Sufficiency: 30-100 ng/mL (75-250 nmol/L)Toxicity: >100 ng/mL (>250 nmol/L) Vitamin D,25 Hydroxyon 11-21 Vitamin D 25-OH 58.9 ng/mL Normal 30-100 [facility] Comment on above: Result Comment: Cee min D Status Deficiency: <20 ng/mL (50nmol/L) Insufficiency: 20-30 ng/mL (50-75 nmol/L) Sufficiency: 30-100 ng/mL (75-250 nmol/L) Toxicity: >100 ng/mL (>250 nmol/L) Performed By: #### L 506.1001, L500.4050 #### [facility] [address] [place], [address] White blood cell countOrdere d By: Steve Alexandre on 11-21-2024 Urine WBC 0-5 SEEN /hpf 0-5 [facility] White blood cell count 0-5 SEEN /hpf 0-5 [facility] Pulmonary Visit Reporton Pulmonary Visit Report [facility] [place] [address] [place] [address] OFFICE VISIT Date of Service: 11/15/24 MR#: [id number] Acct: [id number] Name: ALMA XIONG Rep #: [id number] : 1950 Provider: Dina Edmondson NP Age/Sex: 74/F Location: [facility] Status: Signed Assessment and Plan Assessment and Plan (1) Shortness of breath: Status: Chronic Plan: The patient has had a history of shortness of breath which has neither improved nor progressed. Associated symptoms include cough and wheeze. While there is some exertional oxygen desaturation identified on the 6-minute walk test there is no need to utilize supplemental oxygen at this time. Unfortunately the echocardiogram was unable to determine if there is elevation in right ventricular systolic pressure. The patient is struggling to be physically active due to significant back pain and shortness of breath. I have recommended a trial of ICS for 6 to 8 weeks to determine if this improves her respiratory symptoms and allows for her to be more physically active. The patient could have a component of asthma present. I have also recommended the PFT be repeated at this time to evaluate for worsening gas transfer. If this is present then the patient may have a higher likelihood of elevated right ventricular systolic pressure which would explain the exertional desaturation seen on the 6-minute walk test as well. If there is worsening gas transfer on the PFT then I will consider repeating the CT scan at that time. The patient is in agreement to this plan. The use of the ICS inhaler, Asmanex and potential side effects were reviewed with patient today. Good oral hygiene is warranted after inhaler use. I have recommended that she continue to trial albuterol but instead utilize this prior to her exertional activity to determine if there is improvement in shortness of breath. Orders: Orders PFT Complete - DLCO, Spirometry b/a bronchodilators, lung volumes 5 Weeks R06.02 - Shortness of breath Medications: New mometasone 200 mcg/actuation (Asmanex HFA) 2 puffs inhalation BID 13 grams 2RF Plan Details Follow Up: 6 to 8 weeks (LMR) HPI HPI Comments Details: The patient is a 74-year-old female who presents to the clinic today to review recent testing. She is ambulatory and currently on room air. The patient was previously seen by Dr. Harshal Barnes in October 2018 due to the presence of a chronic cough and hypersomnia. Pulmonary function studies completed in January 2024 were grossly within normal limits. The patient has a history of spinal compression fractures, which she feels could be contributing to her perception of dyspnea. The patient reported that she smoked for approximately 4 years in her late teens. She also has a documented history of hypothyroidism, which according to the patient, has been under adequate medical control. She denies any known cardiac issues. She currently denies any chest tightness, wheezing or cough. The patient does not utilize any inhalers at her baseline. Her weight and appetite have been stable. 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 She readily admits to living a rather sedentary lifestyle. There is a family history of asthma. CT imaging of the chest completed back in March 2024 demonstrated faint groundglass opacities of unclear etiology. Echocardiogram completed 5 years ago demonstrated an ejection fraction of 65% with indeterminate diastolic function. RVSP was unable to be estimated. When walking up inclines she will have shortness of breath, along with bending and preforming chores around the house. She will take a few minutes to stop and catch her breath. She reports that she did travel to [place] last summer and her friends noticed her shortness of breath at that time. She reports that wheezing will occur on occasion at night. She experiences a cough that is nonproductive. She is wondering if there is possibly a food allergy, recent testing with GI indicated a milk allergy. She is avoiding dairy. She has known esophagitis. She denies chest pain and chest pressure. She denies fever, chills, body aches. Trial of albuterol did not produce significant benefit although she tried this inhaler after becoming short of breath. In the past she used Zyrtec on a routine basis and then discontinued its use but looking retrospectively this medication did improve her allergy symptoms that she did experience. She was at 1 point utilizing lisinopril and when she discontinued the use of lisinopril her cough did not significantly improved. Documentation reviewed with patient today includes: 6-minute walk test from September 19, 2024 shows the presence of exertional oxygen desaturation consistent with a pulmonary limitation to exercise tolerance but does not show the need for suppl (more content not included)... Normal [facility] Anion gap in Serum or Plasma Ordered By: Steve Alexandre on 11-03-2024 Anion gap [Moles/Vol] 12 mmol/L 5- [facility] BUN/creatinine ratioOrdered By: Steve Alexandre on 11-03-2024 Urea nitrogen/Creatinine [Mass ratio] 15.5 mg/mg 10- [facility] Bilirubin, totalOrdered By: Steve Alexandre on 11-03-2024 Bilirubin [Mass/Vol] 0.51 mg/dL 0.00-1.30 [facility] Calculated very low density lipoprotein (VLDL) cholesterol measurementOrdered By: Steve Alexandre on 11-03-2024 Calculated very low density lipoprotein (VLDL) cholesterol measurement 30 mg/dL -40 [facility] VLDL Cholesterol 30 mg/dL -40 [facility] Carbon dioxide, total [Moles /volume] in Central venous bloodOrdered By: Steve Alexandre on 11-03-2024 CO2 [Moles/Vol] 25.0 mmol/L 21.0-32.0 [facility] Chloride assayOrdered By: Julieth Alexandre on 11-03-2024 Chloride [Moles/Vol] 101 mmol/L 98-108 [facility] Comprehensive Metabolic Prof ilon 11-03-2024 Albumin [Mass/Vol] 4.3 g/dL Normal 3.4-4.8 [facility] Comment on above: Performed By: #### L 500.4100, L500.4050, L501.9520 #### [facility] [address] [place], [address] Albumin/Globulin [Mass ratio] 1.6 {ratio} Normal 0.9-2.4 [facility] Comment on above: Performed By: #### L 500.4100, L500.4050, L501.9520 #### [facility] [address] [place], [address] ALK PHOS 53 U/L Normal 35-104 [facility] Comment on above: Performed By: #### L 500.4100, L500.4050, L501.9520 #### [facility] [address] [place], [address] ALT [Catalytic activity/Vol] 46 U/L High <=34 [facility] Comment on above: Performed By: #### L 500.4100, L500.4050, L501.9520 #### [facility] [address] [place], [address] AST [Catalytic activity/Vol] 33 U/L High <=31 [facility] Comment on above: Performed By: #### L 500.4100, L500.4050, L501.9520 #### [facility] [address] [place], [address] Bilirubin [Mass/Vol] 0.51 mg/dL Normal 0.00-1.30 [facility] Comment on above: Performed By: #### L 500.4100, L500.4050, L501.9520 #### [facility] [address] [place], [address] BUN/CRE 15.5 RATIO Normal 10-20 [facility] Comment on above: Performed By: #### L 500.4100, L500.4050, L501.9520 #### [facility] [address] [place], [address] Calcium [Mass/Vol] 10.2 mg/dL Normal 7.6-11.0 [facility] Comment on above: Performed By: #### L 500.4100, L500.4050, L501.9520 #### [facility] [address] [place], [address] Chloride [Moles/Vol] 101 mmol/L Normal 98-108 [facility] Comment on above: Performed By: #### L 500.4100, L500.4050, L501.9520 #### [facility] [address] [place], [address] CO2 [Moles/Vol] 25.0 mmol/L Normal 21.0-32.0 [facility] Comment on above: Performed By: #### L 500.4100, L500.4050, L501.9520 #### [facility] [address] [place], [address] Creatinine [Mass/Vol] 0.97 mg/dL Normal 0.70-1.20 [facility] Comment on above: Performed By: #### L 500.4100, L500.4050, L501.9520 #### [facility] [address] [place], [address] GAP 12 Normal 5-15 [facility] Comment on above: Performed By: #### L 500.4100, L500.4050, L501.9520 #### [facility] [address] [place], [address] GFR/1.73 sq M.predicted among non-blacks MDRD (S/P/Bld) [Vol rate/Area] 62 mL/min/{1.73_m2} Normal >60 [facility] Comment on above: Result Comment: mL/m in/1.73m2 CKD-EPI Creatinine Equation (2020) Performed By: #### L 500.4100, L500.4050, L501.9520 #### [facility] [address] [place], [address] Globulin (S) [Mass/Vol] 2.7 g/dL Normal 2.2-4.2 [facility] Comment on above: Performed By: #### L 500.4100, L500.4050, L501.9520 #### [facility] [address] [place], [address] Glucose [Mass/Vol] 134 mg/dL High 70-99 [facility] Comment on above: Performed By: #### L 500.4100, L500.4050, L501.9520 #### [facility] [address] [place], [address] Potassium [Moles/Vol] 3.8 mmol/L Normal 3.3-5.1 [facility] Comment on above: Performed By: #### L 500.4100, L500.4050, L501.9520 #### [facility] [address] [place], [address] Sodium [Moles/Vol] 138 mmol/L Normal 133-145 [facility] Comment on above: Performed By: #### L 500.4100, L500.4050, L501.9520 #### [facility] [address] [place], [address] T PROT 7.0 g/dL Normal 5.9-8.4 [facility] Comment on above: Performed By: #### L 500.4100, L500.4050, L501.9520 #### [facility] [address] [place], [address] Urea nitrogen [Mass/Vol] 15 mg/dL Normal 4-19 [facility] Comment on above: Performed By: #### L 500.4100, L500.4050, L501.9520 #### [facility] [address] [place], [address] GFR/1.73 sq M.predicted yvan g non-blacks MDRD (S/P/Bld) [Vol rate/Area]Ordered By: Steve Alexandre on 11-03-2024 Estimated GFR (MDRD) Non-Af Amer 62 >60 [facility] Comment on above: mL/min/1.73m2 CKD-EP I Creatinine Equation (2020) Glomerular filtration rate ( GFR) estimation/1.73 sq m using serum, plasma, or whole bOrdered By: Steve Alexandre on 11-03-2024 GFR/1.73 sq M.predicted among non-blacks MDRD (S/P/Bld) [Vol rate/Area] 62 mL/min/{1.73_m2} >60 [facility] Comment on above: mL/min/1.73m2 CKD-EP I Creatinine Equation (2020) Internal Medicine Office Vis margarito 11-03-2024 Internal Medicine Office Visit [facility] [address] [place] [address] [address] [place] [address] OFFICE VISIT Date of Service: 11/03/24 MR#: [id number] Acct: [id number] Name: ALMA XIONG Rep #: [id number] : 1950 Provider: Dr. Steve lerma MD Age/Sex: 74/F Location: [facility] Status: Signed Intake Vital Signs 06/14/24 11:09 08/23/24 08:08 09/22/24 14:04 11/03/24 13:13 Height 5 ft 4 in 5 ft 4 in 5 ft 4 in 5 ft 4 in Weight: 195 lb 2 oz BMI 33.5 BP 118/74 Blood Pressure Location Lt brachial Position Sitting Respiration 16 Pulse 90 Pulse Source Monitor Temp 97.2 F L Temp Source Temporal Pulse Oximetry (%) 94 Oxygen Delivery Method room air Intake Visit Reasons: 3 M FU Chief Complaint: Follow-up chronic conditions [employer] Sawyer Required: No Accompanied by: Self Is patient in pain?: No Allergies ciprofloxacin (From Cipro) Allergy (Intermediate, Verified 11/03/24 13:11) hives milk (dairy) Allergy (Verified 11/03/24 13:11) Food Allergy Medications ???Medication ???Instructions ???Recorded ???Confirmed ???Type acetaminophen 500 mg tablet 1,000 mg PO DAILY PRN Pain 3 11/03/24 History cholecalciferol (vitamin D3) 1,250 1,250 mcg PO GARZA #20 caps 3 11/03/24 Rx mcg (50,000 unit) capsule indapamide 1.25 mg tablet 1.25 mg PO QAM htn #90 tabs 11/03/24 Rx omeprazole 40 mg capsule,delayed 40 mg PO BID gerd #60 caps 4 11/03/24 Rx release alendronate 70 mg tablet 70 mg PO QWEEK #12 TABLETS 4 11/03/24 Rx atenolol 50 mg tablet 50 mg PO DAILY #90 tabs 06/12/24 0 11/03/24 Rx albuterol sulfate 90 mcg/actuation 2 puff inhalation Q4H PRN 11/03/24 Rx aerosol inhaler shortness of breath or wheezing #8.5 grams paroxetine HCl 40 mg tablet 40 mg PO DAILY #90 tabs 09/18/24 0 11/03/24 Rx levothyroxine 150 mcg tablet 150 mcg PO DAILY #90 tabs 10/05/24 11/03/24 Rx amitriptyline 25 mg tablet 25 mg PO QHS #90 tabs 10/23/2411/24 Rx Have you fallen in the past year?: No Nurse's Note: 3 month fu [facility] Medical History Thyroid disease Pharyngitis Loss of hearing Wears glasses Post-menopausal Cancer Alcohol use Difficulty swallowing Gastric reflux Former smoker Pneumonitis Shortness of breath on exertion History of pain when walking History of echocardiogram History of stress test Abnormal chest CT Shortness of breath Esophageal stricture Osteoarthritis Vertigo Dysequilibrium Chronic back pain Lumbar radiculopathy Chronic neck pain Anxiety and depression GERD (gastroesophageal reflux disease) Occipital neuralgia Health care maintenance Eosinophilic esophagitis Vitamin D deficiency Osteopenia Fibromyalgia Compression fracture of body of thoracic vertebra Cholelithiasis with chronic cholecystitis Preop cardiovascular exam Abnormal ECG Chest pain Hypersomnia History of breast cancer Depression Hypothyroidism HTN (hypertension), benign Surgical History History of esophagogastroduodenoscopy (EGD) History of cardiac catheterization Hx of cholecystectomy Status post breast lumpectomy History of arthroscopic knee surgery History of fusion of cervical spine History of Family History Mother Breast cancer Father Cancer Bone and Bladder CA Alcoholism Grandmother Heart disease CVA (cerebral vascular accident) Sister Heart disease Cancer lung COPD (chronic obstructive pulmonary disease) Multiple sclerosis Brother Alcoholism Other Hypertension Social History Smoking Status: Former smoker quit date: 08/02/77 Tobacco: How many years used: 5 second hand exposure: No alcohol intake: current alcohol intake frequency: a few times a month substance use type: does not use what type of physical activity do you participate in: none HPI HPI Chief Complaint: Follow-up chronic conditions Details: ALMA XIONG, is a 74 F who presents to the office today for follow-up of her chronic conditions. No acute concerns at this time. Since her last visit, established with pulmonary and had an exercise function test showed desaturation with exercise but no indication for oxygen. Has a follow-up appointment in a few weeks. Also had an echo which did not show any significant findings. History of hypertension, blood pressure today 118/74 mmHg. Currently on atenolol and indapamide. No chest pain, palpitation or shortness of breath. History of hypothyroidism on levothyroxine. No heat or cold intolerance or unintentional weight changes. Other chronic medical conditions are stable. R (more content not included)... Normal [facility] LDL calc ser/plasOrdered By: Steve Alexandre on 11-03-2024 Cholesterol in LDL [Mass/Vol] 100 mg/dL [facility] Comment on above: Qkoikjrsta=695-887 m g/dL & Higher Jrcg=698 mg/dL or greater LDL Cholesterol, Calculated 100 mg/dL [facility] Comment on above: Wrmfabkxnr=956-281 m g/dL & Higher Bssr=024 mg/dL or greater Laboratory - Chemistry and C hemistry - challengeOrdered By: Steve Alexandre on 11-03-2024 AST [Catalytic activity/Vol] 33 U/L High <32 [facility] Lipid Profileon 11-03-2024 CHOL:HDL 4.05 Normal [facility] Comment on above: Performed By: #### P SUIV #### [facility] [address] [facility] [place], [place], [id number] ([phone]) Cholesterol [Mass/Vol] 173 mg/dL Normal <=200 [facility] Comment on above: Result Comment: Chol esterol level, Desirable <200 mg/dL Borderline high cholesterol 200-239 mg/dL High cholesterol >=240 mg/dL Recommendations of the NCEP Adult Treatment Panel for the following risk-cutoff thresholds for the [place] population. Performed By: #### P SUIV #### [facility] [address] [place], [place], [phone] Cholesterol in HDL [Mass/Vol] 43 mg/dL Normal [facility] Comment on above: Result Comment: Hina onal Cholesterol Education Program (NCEP) guidelines: <40 mg/dL: Low HDL-cholesterol (major risk factor for CHD) >= 60 mg/dL: High HDL-cholesterol (negative risk factor for CHD) HDL-cholesterol is affected by a number of factors, e.g. smoking, exercise, hormones, sex and age. Performed By: #### P SUIV #### [facility] [address] [place], [address] Cholesterol in LDL [Mass/Vol] 100 mg/dL Normal [facility] Comment on above: Result Comment: Bord hymgmx=951-401 mg/dL Higher Eymr=390 mg/dL or greater Performed By: #### P SUIV #### [facility] [address] [place], [address] Cholesterol in VLDL [Mass/Vol] 30 mg/dL Normal 5-40 [facility] Comment on above: Performed By: #### P SUIV #### [facility] [address] [place], [address] Triglyceride [Mass/Vol] 150 mg/dL Normal [facility] Comment on above: Result Comment: The drugs N-Acetylcysteine and Metamizole may falsely depress this assay. Normal range: <150 mg/dL Borderline High: 150-199 mg/dL High: 200-499 mg/dL Very High: >500 mg/dL Performed By: #### P SUIV #### [facility] [address] [place], [address] Potassium (Unsp spec) [Mass/ Vol]Ordered By: Steve Alexandre on 11-03-2024 Potassium [Moles/Vol] 3.8 mmol/L 3.3-5.1 [facility] Potassium measurement (mass/ volume)Ordered By: Steve Alexandre on 11-03-2024 Potassium (Unsp spec) [Mass/Vol] 3.8 mmol/L 3.3-5.1 [facility] Screening total cholesterol/ high density lipoprotein (HDL) cholesterol ratioOrdered By: Steve Alexandre on 11-03-2024 Cholesterol.total/Cho lesterol in HDL [Mass ratio] 4.05 {ratio} [facility] Serum creatinine measurement (mass/volume)Ordered By: Steve Alexandre on 11-03-2024 Creatinine [Mass/Vol] 0.97 mg/dL 0.70-1.20 [facility] Serum globulin measurementOr dered By: Steve Alexandre on 11-03-2024 Globulin (S) [Mass/Vol] 2.7 g/dL 2.2-4.2 [facility] Serum glucose measurement (m ass/volume)Ordered By: Steve Alexandre on 11-03-2024 Glucose [Mass/Vol] 134 mg/dL High 70-99 [facility] Serum or plasma alanine hernadez otransferase (ALT) measurementOrdered By: Steve Alexandre on 11-03-2024 ALT [Catalytic activity/Vol] 46 U/L High <35 [facility] Serum or plasma albumin nereida urement (mass/volume)Ordered By: Steve Alexandre on 11-03-2024 Albumin [Mass/Vol] 4.3 g/dL 3.4-4.8 [facility] Serum or plasma albumin/glob ulin mass ratioOrdered By: Steve Alexandre on 11-03-2024 Albumin/Globulin [Mass ratio] 1.6 {ratio} 0.9-2.4 [facility] Serum or plasma alkaline wilfredo sphatase measurementOrdered By: Steve Alexandre on 11-03-2024 ALP [Catalytic activity/Vol] 53 U/L 35-104 [facility] Serum or plasma calcium nereida urement (mass/volume)Ordered By: Steve Alexandre 11-03-2024 Calcium [Mass/Vol] 10.2 mg/dL 7.6-11.0 [facility] Serum or plasma cholesterol in HDL measurement (mass/volume)Ordered By: Steve Alexandre on 11-03-2024 Cholesterol in HDL [Mass/Vol] 43 mg/dL >40 [facility] Comment on above: National Cholesterol Education Program (NCEP) guidelines:<40 mg/dL: Low HDL-cholesterol (major risk factor for CHD)>= 60 mg/dL: High HDL-cholesterol (negative risk factor for CHD)HDL-cholesterol is affected by a number of factors, e.g. smoking, exercise, hormones, sex and age. Serum or plasma cholesterol measurement (mass/volume)Ordered By: Steve Alexandre on 11-03-2024 Cholesterol [Mass/Vol] 173 mg/dL <201 [facility] Comment on above: Cholesterol level, D esirable <200 mg/dLBorderline high cholesterol 200-239 mg/dLHigh cholesterol >=240 mg/dLRecommendations of the NCEP Adult Treatment Panel for the following risk-cutoff thresholds for the [place] population. Serum or plasma urea nitroge n measurement (mass/volume)Ordered By: Steve Alexandre on 11-03-2024 Urea nitrogen [Mass/Vol] 15 mg/dL 4-19 [facility] Sodium levelOrdered By: Hiram Alexandre on 11-03-2024 Sodium [Moles/Vol] 138 mmol/L 133-145 [facility] TSH DL <= 0.005 mIU/L QnOrde red By: Steve Alexandre on 11-03-2024 Thyroid Stimulating Hormone (TSH) 3.630 uIU/mL 0.300-4.20 0 [facility] TSH Qn 3.630 uIU/mL 0.300-4.20 0 [facility] Thyroid Stim Hormone (TSH)on 11-03-2024 TSH 3.630 uIU/mL Normal 0.300-4.20 0 [facility] Comment on above: Performed By: #### P SUIV #### [facility] [address] [place], [place] [address] [place], [address] Total proteinOrdered By: Jersey Alexandre on 11-03-2024 Protein [Mass/Vol] 7.0 g/dL 5.9-8.4 [facility] Triglycerides measurementOrd ered By: Steve Alexandre on 11-03-2024 Triglyceride [Mass/Vol] 150 mg/dL <199 [facility] Comment on above: The drugs N-Acetylcy steine and Metamizole may falsely depress this assay. Normal range: <150 mg/dLBorderline High: 150-199 mg/dLHigh: 200-499 mg/dLVery High: >500 mg/dL 6 Minute Walk Teston 025 6 Minute Walk Test y [facility]Neurology [address] [place] [address] MR#: [id number] Acct: [id number] Name: ALMA XIONG Rep #: [id number] : 1950 74 From: Thai Hurst DO Referring Dr: Thai Hurst DO Status: REG CLI Location: PSN Date: Sex: F C PSN 6 Minute Walk Test 6 Minute Walk Test 6 Minute Walk Test: 6 Minute Walk Test PSN:6-Minute Walk Test Start: 09/19/24 09:16 Freq: Status: Active Protocol: RESP.6MINW Document 09/19/24 09:17 JR (Rec: 09/19/24 09:19 JR [id number]) 6 Minute Walk Test Date Performed 09/19/24 Time Performed 08:15 Height 5 ft 4 in Weight: 190 lb Weight in Pounds 190.[address]: gerry Assistive device None used: Pre-test Oxygen Delivery Room Air Method Pulse Ox (%) 97 Pulse Rate (60-100 89 beats/min) Dyspnea Zac Scale ( 0 0-10) Exertion Zac Scale 6 (6-20) 1st minute Oxygen Delivery Room Air Method Pulse Ox (%) 97 Pulse Rate (60-100 88 beats/min) 2nd minute Oxygen Delivery Room Air Method Pulse Ox (%) 93 Pulse Rate (60-100 94 beats/min) 3rd minute Oxygen Delivery Room Air Method Pulse Ox (%) 95 Pulse Rate (60-100 96 beats/min) 4th minute Oxygen Delivery Room Air Method Pulse Ox (%) 95 Pulse Rate (60-100 100 beats/min) 5th minute Oxygen Delivery Room Air Method Pulse Ox (%) 92 Pulse Rate (60-100 100 beats/min) 6th minute Oxygen Delivery Room Air Method Pulse Ox (%) 97 Pulse Rate (60-100 93 beats/min) Dyspnea Zac Scale ( 2 0-10) Exertion Zac Scale 11 (6-20) Post-test Oxygen Delivery Room Air Method Pulse Ox (%) 97 Pulse Rate (60-100 95 beats/min) Full Laps Walked 19 Partial Lap, Number 0 of Tiles Walked Total Distance 1121 Walked (ft) Interpretation Interpretation: The patient ambulated 1121 feet over the course of 6 minutes beginning on room air without assistive devices. Pretesting oxygen saturation was noted to be 97% on room air. With ambulation, the denice oxygen saturation was 92%. This represents a significant exertional oxygen desaturation, consistent with a pulmonary limitation to exercise tolerance. Recommendations Recommendations: There is no indication for the use of supplemental oxygen at this time. However, close interval follow-up is recommended, given the degree of oxygen desaturation noted during this study. 09/25/24 1210 Date Thai Hurst DO CC: Date Dictated: 09/25/24 1209 Date Transcribed: 09/25/241208 Health Service Worker: Dr. Thai Hurst DO Signed Normal [facility] Orthopedic Visit Reporton Orthopedic Visit Report [facility] [address] [place] [address] OFFICE VISIT Date of Service: 09/22/24 MR#: [id number] Acct: [id number] Name: ALMA XIONG Rep #: [id number] : 1950 Provider: Dr. Yordan Shen MD Age/Sex: 74/F Location: [facility] Status: Signed Intake Vital Signs 08/23/24 08:08 09/19/24 09:17 09/22/24 14:04 Height 5 ft 4 in 5 ft 4 in 5 ft 4 in Weight: 200 lb 2 oz BMI 34.3 Intake Visit Reasons: THORACIC SPINE Chief Complaint: Throacic Spine Pain Accompanied by: Self Is patient in pain?: Yes (Bending/Moving 7 ) Pain scale (1-10): 7 Allergies ciprofloxacin (From Cipro) Allergy (Intermediate, Verified 09/22/24 14:05) hives milk (dairy) Allergy (Verified 09/22/24 14:05) Food Allergy Medications ???Medication ???Instructions ???Recorded ???Confirmed ???Type acetaminophen 500 mg tablet 1,000 mg PO DAILY PRN Pain 3 09/22/24 History cholecalciferol (vitamin D3) 1,250 1,250 mcg PO GARZA #20 caps 3 09/22/24 Rx mcg (50,000 unit) capsule levothyroxine 150 mcg tablet 150 mcg PO DAILY #90 tabs 01/14/24 09/22/24 Rx amitriptyline 25 mg tablet 25 mg PO QHS #90 tabs 04/20/24 Rx indapamide 1.25 mg tablet 1.25 mg PO QAM htn #90 tabs 09/22/24 Rx omeprazole 40 mg capsule,delayed 40 mg PO BID gerd #60 caps 4 09/22/24 Rx release alendronate 70 mg tablet 70 mg PO QWEEK #12 TABLETS 4 09/22/24 Rx atenolol 50 mg tablet 50 mg PO DAILY #90 tabs 06/12/24 0 09/22/24 Rx albuterol sulfate 90 mcg/actuation 2 puff inhalation Q4H PRN 09/22/24 Rx aerosol inhaler shortness of breath or wheezing #8.5 grams paroxetine HCl 40 mg tablet 40 mg PO DAILY #90 tabs 09/18/24 0 09/22/24 Rx Have you fallen in the past year?: Yes (5-6 months ago) [facility] Medical History Thyroid disease Pharyngitis Loss of hearing Wears glasses Post-menopausal Cancer Alcohol use Difficulty swallowing Gastric reflux Former smoker Pneumonitis Shortness of breath on exertion History of pain when walking History of echocardiogram History of stress test Abnormal chest CT Shortness of breath Esophageal stricture Osteoarthritis Vertigo Dysequilibrium Chronic back pain Lumbar radiculopathy Chronic neck pain Anxiety and depression GERD (gastroesophageal reflux disease) Occipital neuralgia Health care maintenance Eosinophilic esophagitis Vitamin D deficiency Osteopenia Fibromyalgia Compression fracture of body of thoracic vertebra Cholelithiasis with chronic cholecystitis Preop cardiovascular exam Abnormal ECG Chest pain Hypersomnia History of breast cancer Depression Hypothyroidism HTN (hypertension), benign Surgical History History of esophagogastroduodenoscopy (EGD) History of cardiac catheterization Hx of cholecystectomy Status post breast lumpectomy History of arthroscopic knee surgery History of fusion of cervical spine History of Family History Mother Breast cancer Father Cancer Bone and Bladder CA Alcoholism Grandmother Heart disease CVA (cerebral vascular accident) Sister Heart disease Cancer lung COPD (chronic obstructive pulmonary disease) Multiple sclerosis Brother Alcoholism Other Hypertension Social History Smoking Status: Former smoker quit date: 08/02/77 Tobacco: How many years used: 5 second hand exposure: No alcohol intake: current alcohol intake frequency: a few times a month substance use type: does not use what type of physical activity do you participate in: none HPI THORACIC SPINE Details: This documentation accurately reflects the service provided and the decisions made by me, Dr. Yordan Shen MD 09/22/24 1400. Part of today???s visit was documented by Alka Blount ATC, acting as scribe. ALMA XIONG is a 74 year old F here today for thoracic spine pain. Patient states the thoracic spine has been bothering her for about 5 years. It started 5 years ago in April on [place] brand[place]. She was trying to move a bed and it didn't move and she felt something almost instantly. She has tried [facility] shortly after this happened and as soon as they pushed down on her back she felt something weird. She did not get any relief from the chiropractor. Patient has been a patient of [facility] so she had tried to get in with Dr. Ch so she was referred here. She has tried pain management and had 2 injections and they did not give her any relief. The last injection was in 2019. She describes the pain right in her midback and it radiate (more content not included)... Normal [facility] Thoracic Spine 2 Viewson Thoracic Spine 2 Views [facility] Imaging Services [address] [place] [address] Thoracic Spine 2 Views MR#: [id number] Acct: [id number] Name: ALMA XIONG Rep #: [id number] : 1950 F 74 From: Sean Jaime MD PCP: Dr. Steve Alexandre MD Status: DEP AMB Study: Thoracic Spine 2 Views Date of Exam: 09/22/24 Exam# [id number] Ordering Dr: Jaelyn Llanes PROCEDURE: THORACIC SPINE 2 VIEWS REASON FOR EXAM: Pain TECHNIQUE: Single lateral view of the thoracic spine COMPARISON: None. FINDINGS: Wedge-shaped deformity at the T12 level.. Spondylosis noted in the midthoracic spine Mild multilevel disc space narrowing. Normal alignment. No spondylolisthesis. RAD/Thoracic Spine 2 Views IMPRESSION: 1. Wedge-shaped compression deformity at T12 2. Moderate degenerative changes throughout the thoracic spine Reading Location: [facility] CC: CHEVY Loredo; Dr. Steve Alexandre MD Health Service Worker: Signed Normal [facility] Echo Completeon 09-19-2024 Echo Complete [facility] [address] [place] [place] [address] Echo Complete 09/19/24 0825 MR#: [id number] Acct: [id number] Name: ALMA XIONG Rep #: [id number] : 1950 74 From: Kalyan Adler MD Attending Dr: Dr. Thai Hurst, Status: REG C LI Ordering Dr: Thai Hurst DO Date: 09/19/24 Location: [facility] Sex: F C Admitted: Reason For Study Reason For Study: SOB Procedure This was a 2D Doppler, Color Flow transthoracic echocardiogram. Exam performed in department. Left Ventricle Normal LV size. The estimated ejection fraction is 50 %. Normal diastology for age. No regional wall motion abnormalities noted. Right Ventricle Normal RV size. Normal systolic function. Atria The left atrium is mildly enlarged. Normal right atrium. Mitral Valve The mitral valve is structurally normal. No prolapse or stenosis seen. Mild (1+) mitral valve insufficiency. Tricuspid Valve Normal tricuspid valve. Trivial tricuspid valve insufficiency. Unable to estimate RV systolic pressure due to insufficient tricuspid regurgitant envelope. Aortic Valve Trisinus/trileaflet aortic valve. Mild focal aortic valve thickening. There is no aortic stenosis. Pulmonic Valve Normal pulmonic valve. Trivial pulmonic valve insufficiency. Great Vessels Normal sized aortic root. Pericardium/Pleural No pericardial effusion. MMode/2D Measurements Calculations LVIDd: 4.8 cm IVSd: 0.95 cm Ao root diam: 3.2 cm LVIDs: 3.6 cm LVPWd: 0.84 cm RVDd: 3.2 cm FS: 24.9 % LAV(MOD-bp): 34.9 ml LVAd ap4: 28.6 cm2 LVAd ap2: 26.4 cm2 LAV(MOD-bp) Indexed: 17.9 ml/m2 LVLd ap4: 7.8 cm LVLd ap2: 7.6 cm LAV(MOD-sp2): 27.7 ml EDV(MOD-sp4): 89.0 ml EDV(MOD-sp2): 76.9 ml LAV(MOD-sp4): 40.1 ml EDV(sp4-el): 89.2 ml EDV(sp2-el): 77.6 ml LVAs ap4: 18.0 cm2 LVAs ap2: 16.7 cm2 LVLs ap4: 6.8 cm LVLs ap2: 6.9 cm ESV(MOD-sp4): 40.1 ml ESV(MOD-sp2): 35.1 ml ESV(sp4-el): 40.2 ml ESV(sp2-el): 34.1 ml EF(MOD-sp4): 55.0 % EF(MOD-sp2): 54.3 % EF(sp4-el): 54.9 % SV(MOD-sp4): 48.9 ml SV(MOD-sp2): 41.8 ml SV(sp4-el): 48.9 ml SI(MOD-sp4): 25.1 ml/m2 SI(MOD-sp2): 21.5 ml/m2 LA A4 area: 15.3 cm2 LA dimension(2D): 3.7 cm RA A4 area: 12.3 cm2 TAPSE: 1.9 cm Time Measurements MV dec time: 0.24 sec Doppler Measurements Calculations MV E max yumiko: 66.8 cm/sec Lat Peak E' Yumiko: 6.6 cm/sec Med Peak E' Yumiko: 5.0 cm/sec MV A max yumiko: 77.4 cm/sec E/E' lat: 10.1 E/E' med: 13.4 MV E/A: 0.86 Ao V2 max: 126.7 cm/sec LV V1 max: 98.8 cm/sec MV dec slope: 275.1 cm/sec2 Ao max P.4 mmHg LV V1 max P.9 mmHg Ao V2 mean: 90.1 cm/sec LV V1 mean P.2 mmHg Ao mean P.6 mmHg LV V1 mean: 70.5 cm/sec Ao V2 VTI: 23.9 cm LV V1 VTI: 22.3 cm AV (velocity ratio): 0.93 PA V2 max: 88.8 cm/sec ECHO/Echo Complete Interpretation Summary The estimated ejection fraction is 50 %. Mild (1+) mitral valve insufficiency. Mild focal aortic valve thickening. The left atrium is mildly enlarged. Ordering Physician: Thai Hurst Referring Physician: Steve Alexandre Performed By: Ciarra Xiong [facility] 09/19/248 Date Kalyan Adler MD CC: Dr. Thai Hurst DO; Dr. Steve Alexandre MD Date Dictated: 09/19/24824 Date Transcribed: 09/19/241017 Health Service Worker: Signed Normal [facility] Pulmonary Visit Reporton Pulmonary Visit Report [facility] [place] [address] [place] [address] OFFICE VISIT Date of Service: 08/23/24 MR#: [id number] Acct: [id number] Name: ALMA XIONG Rep #: [id number] : 1950 Provider: Dr. Thai Hurst DO Age/Sex: 74/F Location: [facility] Status: Signed Assessment and Plan Assessment and Plan (1) Shortness of breath: Status: Chronic Plan: The patient presented today for the evaluation of shortness of breath. She has no known history of asthma or any prior cardiac pathology. Pulmonary function studies completed in January 2024 were grossly within normal limits without any significant bronchodilator response. Potential considerations for the etiology of the patient's dyspnea would include generalized deconditioning due to sedentary lifestyle and obesity, possible asthma or underlying cardiac dysfunction. Therefore, we will plan to provide the patient with an albuterol rescue inhaler to be utilized as needed in order to assess her symptom response to the use of a short acting bronchodilator. In addition, we will obtain a 6-minute walk test to assess for any exertional hypoxemia. Lastly, surface echocardiogram will be repeated to assess for any underlying diastolic dysfunction or pulmonary hypertension. If her workup is unremarkable, I would recommend that the patient engage in a graded exercise regimen with weight loss encouraged. Orders: Orders Simple Pulmonary Exercise Test 09/19/24 R06.02 - Shortness of breath Echo Complete 08/23/24 R06.02 - Shortness of breath Medications: New albuterol sulfate 90 mcg/actuation administer with spacer 2 puffs inhalation Q4H PRN 8.5 grams 1RF shortness of breath or wheezing HPI HPI Comments Details: The patient is a 74-year-old female who presents to the clinic today in referral for the evaluation of shortness of breath. The patient was previously seen by Dr. Harshal Barnes in October 2018 due to the presence of a chronic cough and hypersomnia. Pulmonary function studies completed in January 2024 were grossly within normal limits. The patient has a history of spinal compression fractures, which she feels could be contributing to her perception of dyspnea. Her main complaint today is for that of exertional shortness of breath. She has never been formally diagnosed in the past with a history of asthma. The patient reported that she smoked for approximately 4 years in her late teens. She also has a documented history of hypothyroidism, which according to the patient, has been under adequate medical control. She denies any known cardiac issues. She currently denies any chest tightness, wheezing or cough. The patient does not utilize any inhalers at her baseline. Her weight and appetite have been stable. 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 She readily admits to living a rather sedentary lifestyle. CT imaging of the chest completed back in March 2024 demonstrated faint groundglass opacities of unclear etiology. Echocardiogram completed 5 years ago demonstrated an ejection fraction of 65% with indeterminate diastolic function. RVSP was unable to be estimated. 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 Required: No Accompanied by: Self Allergies ciprofloxacin (From Cipro) Allergy (Intermediate, Verified 08/23/24 11:18) hives milk (dairy) Allergy (Verified 08/23/24 11:18) Food Allergy Medications ???Medication ???Instructions ???Recorded ???Confirmed ???Type acetaminophen 500 mg tablet 1,000 mg PO DAILY PRN Pain 09/14/22 08/23/24 History cholecalciferol (vitamin D3) 1,250 1,250 mcg PO GARZA #20 caps 06/11/23 08/23/24 Rx mcg (50,000 unit) capsule levothyroxine 150 mcg tablet 150 mcg PO DAILY #90 tabs 01/14/24 08/23/24 Rx paroxetine HCl 40 mg tablet 40 mg PO DAILY #90 tabs 03/09/24 08/23/24 Rx amitriptyline 25 mg tablet 25 mg PO QHS #90 tabs 04/20/24 08/23/24 Rx indapamide 1.25 mg tablet 1.25 mg PO QAM htn #90 tabs 05/08/24 08/23/24 Rx omeprazole 40 mg capsule,delayed 40 mg PO BID gerd #60 caps 10/09/24 01/22/25 Rx release alendronate 70 mg tablet 70 mg PO QWEEK #12 TABLETS 05/22/24 08/23/24 Rx atenolol 50 mg tablet 50 mg PO DAILY #90 tabs 06/12/24 08/23/24 Rx albuterol sulfate 90 mcg/actuation 2 puff inhalation Q4H PRN 08/23/24 08/23/24 Rx aerosol inhaler shortness of breath or wheezing #8.5 grams Have you fallen in (more content not included)... Normal [facility] Automated blood erythrocyte countOrdered By: Liam Engle on 08-07-2024 RBC (Bld) [#/Vol] 4.96 10*6/uL Normal 4.2-5.4 [facility] Comment on above: Performed By: #### P SUIV #### [facility] [address] [place], [address] Automated blood hematocrit ( percentage)Ordered By: Liam Engle on 08-07-2024 Hematocrit (Bld) [Volume fraction] 40.8 % Normal 37-47 [facility] Comment on above: Performed By: #### P SUIV #### [facility] [address] [place], [address] CBC-Complete Blood Cnt No Di ffon 08-07-2024 RDW SD 43.3 fl Normal 35.1-43.9 [facility] Comment on above: Performed By: #### P SUIV #### [facility] [address] [place], [address] Erythrocyte distribution wid th (RBC) [Ratio]Ordered By: Liam Engle on 08-07-2024 Erythrocyte distribution width (RBC) [Entitic vol] 43.3 fL 35.1-43.9 [facility] Erythrocyte distribution wid th ratioOrdered By: Liam Engle on 08-07-2024 Erythrocyte distribution width (RBC) [Ratio] 14.6 % Normal 11.6-14.6 [facility] Comment on above: Performed By: #### P SUIV #### [facility] [address] [place], [place], [id number] Hemoglobin measurementOrdere d By: Liam Engle on 08-07-2024 Hemoglobin (Bld) [Mass/Vol] 13.3 g/dL Normal 12.0-15.0 [facility] Comment on above: Performed By: #### P SUIV #### [facility] [address] [place], [address] MCV (mean corpuscular volume ) determinationOrdered By: Liam Engle on 08-07-2024 MCV (RBC) [Entitic vol] 82.3 fL Normal 81-99 [facility] Comment on above: Performed By: #### P SUIV #### [facility] [address] [place], [place], [id number] MR/POSTOP.ANEon 08-07-2024 MR/POSTOP.ANE [facility] Medical Records Department [address] [place] [address] Anesthesia Postop Eval I 08/07/24 1133 MR#: [id number] Acct: [id number] Name: ALMA XIONG Rep #: [id number] : 1950 74 From: Delaney Laura PCP: Dr. Steve Alexandre MD Status:REG SD Y Race: C Location: [place] [address] Anesthesia: Postop Eval I Current Vital Signs Temperature: 97.4 F Pulse Rate: 76 Blood Pressure: 139/68 Respiratory Rate: 18 Pulse Ox: 95 Assessment Airway patent: Yes Spontaneous unlabored respirations: Yes nausea: No Vomiting: No Anesthesia Complication: No Fluid Hydration Crystalloid volume administer (ml): 800 Total IV fluid infused: 800 Progress Note Anesthesia document: Postop Eval 1 completed: Yes 08/07/24 1134 Date Delaney Marroquin Signature: Date CC: Signed Normal [facility] MR/[id number] 08-07-2024 MR/POSTOPAN2 [facility] Medical Records Department [address] [place] [address] Anesthesia Postop Eval II 08/07/24 1159 MR#: [id number] Acct: [id number] Name: ALMA XIONG Rep #: [id number] : 1950 74 From: Terry Tobar MD PCP: Dr. Steve Alexandre MD Status:REG SDC Y Race: C Location: [address] Anesthesia Postop Eval I Sum Postop Eval Completion status Anesthesia document: Postop Eval 1 completed: Yes Anesthesia Postop Eval I Summary Anesthesia Postop Eval I Summary: Anesthesia Postop Eval I: Assessment Summary Airway patent Yes 08/07/24 11:33 SUPERVISORY AIR INTERCEPT CONTROLLER.CSIR Spontaneous unlabored Yes 08/07/24 11:33 SUPERVISORY AIR INTERCEPT CONTROLLER.CSIR respirations Mental status nausea No 08/07/24 11:33 SUPERVISORY AIR INTERCEPT CONTROLLER.CSIR Vomiting No 08/07/24 11:33 SUPERVISORY AIR INTERCEPT CONTROLLER.CSIR Anesthesia Postop Eval I: Fluid Summary Crystalloid volume administer 800 08/07/24 11:33 SUPERVISORY AIR INTERCEPT CONTROLLER.CSIR (ml) Colloids volume administered ( ml) Blood Product volume administered (ml) Total IV fluid infused 800 08/07/24 11:33 SUPERVISORY AIR INTERCEPT CONTROLLER.CSIR Anesthesia Postop Eval I: Summary Notes Anesthesia Complication No 08/07/24 11:33 SUPERVISORY AIR INTERCEPT CONTROLLER.CSIR Anesthesia Complication Comment: Post-operative progress note Anesthesia: Postop Eval II Evaluation Mental status: Awake Pain Level: 0 nausea: No Vomiting: No 08/07/24 1159 Date Terry Tobar MD Cosigner Signature: Date CC: Signed Normal [facility] Mean corpuscular hemoglobin (MCH) determinationOrdered By: Liam Engle on 08-07-2024 MCH (RBC) [Entitic mass] 26.8 pg Low 27.0-32.0 [facility] Comment on above: Performed By: #### P SUIV #### [facility] [address] [place], [place], [id number] Mean corpuscular hemoglobin concentration (MCHC) determinationOrdered By: Liam Engle on 08-07-2024 MCHC (RBC) [Mass/Vol] 32.6 g/dL Normal 32-36 [facility] Comment on above: Performed By: #### P SUIV #### [facility] [address] [facility] [place], [place], [id number] Mean platelet volume determi nationOrdered By: Liam Engle on 08-07-2024 Platelet mean volume (Bld) [Entitic vol] 10.9 fL Normal 6.2-12.0 [facility] Comment on above: Performed By: #### P SUIV #### [facility] [address] [facility] [address] [place], [place], [id number] Operative Reporton Operative Report [facility] Medical Records Department [address] [place] [address] Operative Report 08/07/24 1042 MR#: [id number] Acct: [id number] Name: ALMA XIONG DANNIE Rep #: [id number] : 1950 74 From: Liam Engle MD PCP: Dr. Steve Alexandre MD Status:[facility] Location: [place] [address] Operative Report (Standard) Operative Information Date of Procedure: 08/07/24 Pre-Operative Diagnosis: Hypopharyngeal neoplasm Post-Operative Diagnosis: same Surgery/Procedure Performed: micro direct laryngoscopy with excision of hypopharyngeal lesion judicial law clerk: No Type of Anesthesia: General RN Documented Start/Stop Times: Operation Date: 08/07/24 10:00 Case Time Into Pre-Op 08/07/24 08:40 Procedure Start Time: 11:05 Procedure Stop Time: 11:15 Select all DRAINS/GRAFTS/IMPLANTS that apply: None Estimated Blood Loss: minimal Specimen collected: Yes Description of specimen(s) removed: hypopharyngeal lesion Description of surgery: The patient was taken the op room on 08/07/2024. She was placed in the supine position on the operating table. She was given sufficient general endotracheal anesthesia. The table was turned 90 degrees in a counterclockwise fashion. A tooth guard was placed on the upper dentition. A Dedo laryngoscope inserted in the patient's mouth and the hypopharynx was exposed. The mass was identified the patient was then placed in suspension on the Dennis stand. The operating microscope was then brought into use. The lesion was grasped with cup forceps and excised with scissors. The specimen was sent for permanent section. Hemostasis was achieved with adrenaline on Codman's. Once hemostasis was obtained the Codman's were removed. All instrumentation was removed. The patient was then awoken. She was brought to recovery room in stable condition. Blood loss minimal, replacement none. Sponge, needle, and instrument count were correct at the end of the procedure. Surgical Findings: posterior hypopharyngeal wall mass Complications Complications: No 08/07/24 1116 Cosigner Signature (if applicable): CC: Dr. Steve Alexandre MD; Dr. Liam Engle MD Signed Normal [facility] Platelet countOrdered By: Diallo Engle on 08-07-2024 Platelets (Bld) [#/Vol] 255 10*3/uL Normal 150-450 [facility] Comment on above: Performed By: #### P SUIV #### [facility] [address] [place], [place], [id number] Surgery Specimen Level Tommy 08-07-2024 Surgery Specimen Level IV -------- Patient Age/Sex Location Account Attending Physician -------- TYRESEALMA DANNIE 74/F [facility] [id number] Dr. Liam Engle MD -------- Specimen: [id number] Received: 08/07/24 Status: JANEE Scarlet Num: [id number] Spec Type: LARYNX BX Subm Dr: Dr. 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 Negative for malignancy. See comment. 08/09/2024 COMMENT The findings may represent benign adenoid tissue. Correlation with clinical findings and appropriate follow up are necessary. MICROSCOPIC DESCRIPTION Slides are reviewed. GROSS DESCRIPTION Received in fixative is one container labeled with the patient's name and designated Excision posterior hypopharyngeal wall mass. The specimen consists of a piece of celeste soft tissue measuring 0.6 x 0.4 x 0.1cm. The entire specimen is submitted in one cassette. 08/08/2024 TC:5 CPT:28023 -------- Patient Age/Sex Location Account Attending Physician -------- ALMA XIONG 74/F [facility] [id number] Dr. Liam Engle MD -------- Signed (signature on file) Dr. Preet Menard MD 08/09/24 1058 -------- [facility] Comment on above: Performed By: #### P POWER #### [facility] [address] [place], [place], [address] White blood cell (WBC) count Ordered By: Liam Engle on 08-07-2024 WBC (Bld) [#/Vol] 6.8 10*3/uL Normal 4.4-11.0 [facility] Comment on above: Performed By: #### P SUIV #### [facility] [address] [place], [place], [address] MR/PAT.ANEon 08-04-2024 MR/PAT.ANE [facility] Medical Records Department [address] [address] PAT - Anesthesia 08/04/24 1543 MR#: [id number] Acct: [id number] Name: ALMA XIONG Rep #: [id number] : 1950 74 From: Mk Osborn MD PCP: Dr. Steve Alexandre MD Status:PRE [facility] Y Race: C Location: [facility] Pre-Assessment Diagnosis/Proposed Procedure Planned Operative Procedure(s): MICRO DIRECT LARYNGOSCOPY WITH EXCISION HYPOPHARYNGEAL MASS Anesthesia History Anesthesia History - crystallizer operator: Anesthesia History - crystallizer operator Hx Hospitalization No 08/04/24 09:56 Any Problems With Anesthesia No 08/04/24 09:56 Cholinesterase deficiency No 08/04/24 09:56 You/Your Family Experience No 08/04/24 09:56 fever (hyperthermia) with Relationship Recent Exposure to Contagious No 05/04/24 10:13 Disease Does patient have nerve No 08/04/24 09:56 stimulator Patient instructed to have device shut off --Does patient have Pacemaker or ICD? When Was Last Pacemaker Check QUESTION #4 FULL TEXT: You/Your Family Experience fever (hyperthermia) with Anesthesia Last Oral Intake Last Oral intake: Last Oral Intake NPO since Meds taken in AM with sips of water? 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 - crystallizer operator: PONV - crystallizer operator Female Yes 08/04/24 09:56 HX of Motion Sickness No 08/04/24 09:56 HX of N/V After Surgery No 08/04/24 09:56 Non-Smoker Yes 08/04/24 09:56 Duration of Surgery greater No 08/04/24 09:56 than 60 minutes Number of Risk Factors 2 08/04/24 09:56 PONV Score Moderate Risk 08/04/24 09:56 Height Weight Height Weight: Anesthesia: Height Weight Height 5 ft 4 in 06/14/24 11:09 Respiratory Assessment Respiratory Assessment - crystallizer operator: Respiratory Tract Infection Hx - crystallizer operator Hx Respiratory Tract Infection No 08/04/24 09:56 STOP Sleep Apnea STOP Sleep Apnea - crystallizer operator: STOP Sleep Apnea - crystallizer operator Hx Hypertension Yes: CONTROLLED WITH MED 08/04/24 09:56 Hx Sleep Apnea No 08/04/24 09:56 CPAP No 08/04/24 09:56 BIPAP Do you snore loudly (louder Yes 08/04/24 09:56 than talking or can be heard Do you often feel tired/ No 08/04/24 09:56 fatigued/ sleepy during daytime? Has anyone observed you stop No 08/04/24 09:56 breathing during sleep? STOP Results Positive 08/04/24 09:56 QUESTION #5 FULL TEXT : Do you snore loudly (louder than talking or can be heard through closed doors)? Tobacco Use History Tobacco Use History - crystallizer operator: Tobacco Use History - crystallizer operator Tobacco Use Smoking Status Former smoker 08/04/24 09:56 Hx Tobacco Use No 08/04/24 09:56 Years Smoking Packs Smoked per Day Smoking Cessation Date was No - quit smoking greater 08/04/24 09:56 within the last 15 years than 15 years ago Hx Smoking Cessation Date Hx Smoking Cessation No 08/04/24 09:56 Counseling Hematologic Medial History Hematologic Hx - crystallizer operator: Hematologic Medical Hx - bulb tester Hx of Blood Transfusion No 08/04/24 09:56 Hx of Transfusion in last 3 No 08/04/24 09:56 Months Date of Last Transfusion (if within last 3 months) Ever experience any problems No 08/04/24 09:56 with transfusion(s)? Specify any problems Hx of Preganancy in last 3 No 08/04/24 09:56 Months Nurse Filling Out Transfusion DSCHRIBER 08/04/24 09:56 Questions: Date: 08/04/24 08/04/24 09:56 Time: 09:58 08/04/24 09:56 Patient unable to answer at this time (ie. 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 - crystallizer operator: /Reproductive Hx- crystallizer operator Hx Now Gestational Age (in weeks): EDC: Hx Hx Para Hx Section SAB No 08/04/24 09:56 [facility] Medical History (Updated 08/04/24 @ 10:07 by Arleth Yee) Thyroid disease Pharyngitis Loss of hearing Wears glasses Post-menopausal Cancer Alcohol use Difficulty swallowing Gastric reflux Former smoker Pneumonitis Shortness of breath on exertion History of pain when walking History of echocardiogram History of stress test Abnormal chest CT Shortness of breath Esophageal stricture Osteoarthritis Vertigo Dysequilibrium Chronic back pain Lumbar radiculopathy Chronic neck pain Anxiety and depression GERD (gastroesophageal reflux disease) Occipital neuralgia Health care maintenance Eosinophilic esophagitis Vitamin D deficiency Osteopenia Fibromyalgia Compression fracture of body of thoracic vertebra Cholelithiasis with chronic cholecystitis Preop cardiovascular exam Abnormal ECG (more content not included)... Normal [facility] Basic Metabolic Profile (BMP )on 06-14-2024 BUN/CRE 19.2 RATIO Normal - [facility] Comment on above: Performed By: #### P SUIV #### [facility] [address] [place], [address] CA,Total 9.1 mg/dL Normal 8.5-10.1 [facility] Comment on above: Performed By: #### P SUIV #### [facility] [address] [place], [address] Chloride [Moles/Vol] 104 mmol/L Normal 98-107 [facility] Comment on above: Performed By: #### P SUIV #### [facility] [address] [place], [address] CO2 [Moles/Vol] 27.0 mmol/L Normal 21.0-32.0 [facility] Comment on above: Performed By: #### P SUIV #### [facility] [address] [place], [address] Creatinine [Mass/Vol] 0.94 mg/dL Normal 0.55-1.02 [facility] Comment on above: Result Comment: The validity of the calculated GFR GFRAA in patients over 70 years has not been determined. Clinical correlation is essential. Performed By: #### P SUIV #### [facility] [address] [place], [address] EST GFR - AA 76 mL/min Normal >60 [facility] Comment on above: Result Comment: Afri can Dutch GFR Calc Performed By: #### P SUIV #### [facility] [address] [place], [address] GAP 7 Normal 5-15 [facility] Comment on above: Performed By: #### P SUIV #### [facility] [address] [place], [address] GFR/1.73 sq M.predicted among non-blacks MDRD (S/P/Bld) [Vol rate/Area] 63 mL/min/{1.73_m2} Normal >60 [facility] Comment on above: Result Comment: Non- GFR Calc Performed By: #### P SUIV #### [facility] [address] [place], [address] Glucose [Mass/Vol] 129 mg/dL High 74-106 [facility] Comment on above: Result Comment: Fast ing Glucose result greater than or equal to 126 mg/dL suggests DIABETES MELLITUS per A.D.A. criteria. Performed By: #### P SUIV #### [facility] [address] [place], [address] Potassium [Moles/Vol] 4.1 mmol/L Normal 3.5-5.1 [facility] Comment on above: Performed By: #### P SUIV #### [facility] [address] [place], [address] Sodium [Moles/Vol] 138 mmol/L Normal 136-145 [facility] Comment on above: Performed By: #### P SUIV #### [facility] [address] [place], [address] Urea nitrogen [Mass/Vol] 18 mg/dL Normal 7-18 [facility] Comment on above: Performed By: #### P SUIV #### [facility] [address] [place] [place], [address] Internal Medicine Office Vis iton 06-14-2024 Internal Medicine Office Visit [facility] [address] [place] [address] [place] [address] OFFICE VISIT Date of Service: 06/14/24 MR#: [id number] Acct: [id number] Name: ALMA XIONG Rep #: [id number] : 1950 Provider: Dr. Steve lerma MD Age/Sex: 74/F Location: [facility] Status: Signed Intake Vital Signs 03/10/24 10:29 05/04/24 10:13 06/14/24 11:09 Height 5 ft 3 in 5 ft 4 in 5 ft 4 in Weight: 198 lb BMI 34.0 BP 138/86 H Blood Pressure Location Lt brachial Position Sitting Respiration 17 Pulse 72 Pulse Source Monitor Temp 97.7 F L Temp Source Temporal Pulse Oximetry (%) 97 Oxygen Delivery Method room air Intake Visit Reasons: 3 M FU Chief Complaint: 3 M FU Is patient in pain?: Yes (2 bilateral knees chronic ) Allergies ciprofloxacin (From Cipro) Allergy (Intermediate, Verified 06/14/24 11:07) hives milk (dairy) Allergy (Verified 06/14/24 11:07) Food Allergy Medications ???Medication ???Instructions ???Recorded ???Confirmed ???Type acetaminophen 500 mg tablet 1,000 mg PO DAILY PRN Pain 09/14/22 06/14/24 History cholecalciferol (vitamin D3) 1,250 1,250 mcg PO GARAZ #20 caps 06/11/23 06/14/24 Rx mcg (50,000 unit) capsule levothyroxine 150 mcg tablet 150 mcg PO DAILY #90 tabs 01/14/24 06/14/24 Rx paroxetine HCl 40 mg tablet 40 mg PO DAILY #90 tabs 03/09/24 06/14/24 Rx amitriptyline 25 mg tablet 25 mg PO QHS #90 tabs 04/20/24 06/14/24 Rx indapamide 1.25 mg tablet 1.25 mg PO QAM htn #90 tabs 05/08/24 06/14/24 Rx omeprazole 40 mg capsule,delayed 40 mg PO BID gerd #60 caps 05/10/24 06/14/24 Rx release alendronate 70 mg tablet 70 mg PO QWEEK #12 TABLETS 05/22/24 06/14/24 Rx atenolol 50 mg tablet 50 mg PO DAILY #90 tabs 06/12/24 06/14/24 Rx Have you fallen in the past year?: Yes (x2 denies injury ) [facility] Medical History Loss of hearing Wears glasses Post-menopausal Cancer Alcohol use Difficulty swallowing Gastric reflux Former smoker Pneumonitis Shortness of breath on exertion History of pain when walking History of echocardiogram History of stress test Abnormal chest CT Shortness of breath Esophageal stricture Osteoarthritis Vertigo Dysequilibrium Chronic back pain Lumbar radiculopathy Chronic neck pain Anxiety and depression GERD (gastroesophageal reflux disease) Occipital neuralgia Health care maintenance Eosinophilic esophagitis Vitamin D deficiency Osteopenia Fibromyalgia Compression fracture of body of thoracic vertebra Cholelithiasis with chronic cholecystitis Preop cardiovascular exam Abnormal ECG Chest pain Hypersomnia History of breast cancer Depression Hypothyroidism HTN (hypertension), benign Surgical History History of cardiac catheterization Hx of cholecystectomy Status post breast lumpectomy History of arthroscopic knee surgery History of fusion of cervical spine History of Family History Mother Breast cancer Father Cancer Bone and Bladder CA Alcoholism Grandmother Heart disease CVA (cerebral vascular accident) Sister Heart disease Cancer lung COPD (chronic obstructive pulmonary disease) Multiple sclerosis Brother Alcoholism Other Hypertension Social History Smoking Status: Former smoker quit date: 08/02/77 Tobacco: How many years used: 5 second hand exposure: No alcohol intake: current alcohol intake frequency: a few times a month substance use type: does not use what type of physical activity do you participate in: none HPI HPI Chief Complaint: 3 M FU Details: ALMA XIONG, is a 74 F who presents to the office today for follow-up. No acute concerns at this time. History of shortness of breath. Workup so far with no acute concerns. Has an appointment with pulmonary in September. Denies worsening symptoms. Shortness of breath but still with exertion and typically stems from pain in her back. As above, chronic back pain. Occasional lower extremity weakness. Plans to schedule with ortho. No change in bowel or bladder habit. History of hypertension, blood pressure today at 138/86 mmHg. Currently on indapamide and atenolol which she states that she is taking as prescribed. No syncopal and near syncopal episodes. Other chronic medical conditions are stable. ROS Const Constitutional: No body ache, chills, excessive sweating, fatigue, fever(s), frequent falls, headache(s), snoring, weight change, sleep problems, abnormal sleep pattern or change in appetite Eyes Eyes: No blurry vision, change in vision, floaters, visual disturbances, eye pain or Light sensitivity ENT EN (more content not included)... Normal [facility] EGD Reporton 05-04-2024 EGD Report [facility] Medical Records Department [address] [place] [address] EGD Report MR#: [id number] Acct: [id number] Name: ALMA XIONG Rep #: [id number] : 1950 74 From: Franco Tam DO PCP: Dr. Steve Alexandre MD Status:REG [facility] Patient Name: Alma Xiong Procedure Date: 05/04/2024 11:58 AM Date of : 1950 Age: 74 Procedure: Upper GI endoscopy Indications: Dysphagia Providers: Franco Tam DO Medicines: Monitored Anesthesia Care Patient Profile: This is a 74 year old female. Refer to note in patient chart for documentation of history and physical. Patient has symptoms of dysphagia with both liquids and solids. Complications: No immediate complications. Procedure: Pre-Anesthesia Assessment: - Prior to the procedure, a History and Physical was performed, and patient medications and allergies were reviewed. The patient is competent. The risks and benefits of the procedure and the sedation options and risks were discussed with the patient. All questions were answered and informed consent was obtained. Patient identification and proposed procedure were verified by the physician in the pre-procedure area. Mental Status Examination: alert and oriented. Airway Examination: normal oropharyngeal airway and neck mobility. Respiratory Examination: clear to auscultation. CV Examination: normal. Prophylactic Antibiotics: The patient does not require prophylactic antibiotics. Prior Anticoagulants: The patient has taken no anticoagulant or antiplatelet agents. ASA Grade Assessment: III - A patient with severe systemic disease. After reviewing the risks and benefits, the patient was deemed in satisfactory condition to undergo the procedure. The anesthesia plan was to use monitored anesthesia care (MAC). Immediately prior to administration of medications, the patient was re-assessed for adequacy to receive sedatives. The heart rate, respiratory rate, oxygen saturations, blood pressure, adequacy of pulmonary ventilation, and response to care were monitored throughout the procedure. The physical status of the patient was re-assessed after the procedure. After obtaining informed consent, the endoscope was passed under direct vision. Throughout the procedure, the patient's blood pressure, pulse, and oxygen saturations were monitored continuously. The gastroscope was introduced through the mouth, and advanced to the second part of duodenum. The upper GI endoscopy was accomplished without difficulty. The patient tolerated the procedure well. Scope In: 12:07:34 PM Scope Out: 12:13:29 PM Total Procedure Duration Time 0 hours 5 minutes 55 seconds Findings: Mucosal changes including ringed esophagus, feline appearance, longitudinal furrows, small-caliber esophagus, white plaques and circumferential folds were found in the upper third of the esophagus, in the middle third of the esophagus and in the lower third of the esophagus. Esophageal findings were graded using the Eosinophilic Esophagitis Endoscopic Reference Score (EoE-EREFS) as: Edema Grade 1 Present (decreased clarity or absence of vascular markings), Exudates Grade 1 Mild (scattered white lesions involving less than 10 percent of the esophageal surface area), Furrows Grade 1 Mild (vertical lines without visible depth) and Stricture present. Biopsies were obtained from the proximal and distal esophagus with cold forceps for histology of suspected eosinophilic esophagitis. Verification of patient identification for the specimen was done. Estimated blood loss was minimal. A small hiatal hernia was present. Patchy moderate inflammation characterized by erythema and linear erosions was found on the lesser curvature of the stomach. Biopsies were taken with a cold forceps for histology. Verification of patient identification for the specimen was done. Biopsies were taken with a cold forceps for Helicobacter pylori testing. Verification of patient identification for the specimen was done. Estimated blood loss was minimal. The first portion of the duodenum was normal. Impression: - Esophageal mucosal changes secondary to eosinophilic esophagitis. - Small hiatal hernia. - Chronic gastritis. Biopsied. - Normal first portion of the duodenum. - Biopsies were taken with a cold forceps for evaluation of eosinophilic esophagitis. Recommendation: - Discharge patient to home. - Resume previous diet. - Continue present medications. - Await pathology results. - lreferral to ENT for Palatal polyp Procedure Code(s): --- Professional --- 47211, Esophagogastroduodenoscopy, flexible, transoral; with biopsy, single or multiple CPT copyright 2021 [employer]. All rights reserved. The codes documented in this report are preliminary and upon corporate claims examiner review may be revised t (more content not included)... Normal [facility] H Pylori (initial)on H Pylori (initial) -------- -------- Patient Age/Sex Location Account Attending Physician -------- ALMA XIONG 74/F EN [id number] Franco Tam DO -------- Specimen: [id number] Received: 05/05/24 Status: JANEE Novak Num: [id number] Spec Type: IMMUNO Subm Dr: Franco Tam, DO PHYSICIAN INSTITUTION [address] [address] SPECIMEN INFORMATION: Tissue Source: B- Gastric antrum biopsy Clinical Info: Esophageal stricture, eosinophilic esophagitis Specimen Number: [id number] CPT code: 92441 METHODOLOGY: Deparaffinized sections of prefer/formalin-fixed tissue or PAP/DQ stained slides are incubated with monoclonal/polyclonal antibodies/oligonucleotide probes. Localization is made via biotin free immunoperoxidase method. Appropriate controls are performed and reacted as expected. Results on target cell population are indicated in the following table: RESULTS: ANTIBODY / CLONE RESULT Block B H Pylori (polyclonal) negative These tests were developed and their performance characteristics determined by [facility]. They may not have been cleared or approved by the U.S. Food and Drug Administration. The FDA has determined that such clearance or approval is not necessary. The above immunohistochemical/dualISH markers are ordered and reviewed by the Pathologist. INTERPRETATION: B. Gastric antrum, biopsy: Negative for Helicobacter pylori organisms. 05/08/2024 Signed (signature on file) Dr. Preet Menard MD 05/09/24 1204 -------- Normal [facility] Comment on above: Performed By: #### P H.PYLORI #### [facility] [address] [place] [address], [address] MR/POSTOP.ANEon 05-04-2024 MR/POSTOP.ANE [facility] Medical Records Department [address] [place] [address] Anesthesia Postop Eval I 05/04/24 1229 MR#: [id number] Acct: [id number] Name: ALMA XIONG Rep #: [id number] : 1950 74 From: Brian Ivey PCP: Dr. Steve Alexandre MD Status:REG SDC Y Race: C Location: [place] [address] Anesthesia: Postop Eval I Current Vital Signs Temperature: 97.6 F Pulse Rate: 70 Blood Pressure: 101/60 Respiratory Rate: 16 Pulse Ox: 98 Oxygen Delivery Method: Room Air Assessment Airway patent: Yes Spontaneous unlabored respirations: Yes Mental status: Awake nausea: No Vomiting: No Anesthesia Complication: No Fluid Hydration Crystalloid volume administer (ml): 400 Total IV fluid infused: 400 Progress Note Anesthesia document: Postop Eval 1 completed: Yes 05/04/24 1230 Date Brian Marroquin Signature: Date CC: Signed Normal [facility] MR/[id number] 05-04-2024 MR/POSTOPAN2 [facility] Medical Records Department [address] [place] [address] Anesthesia Postop Eval II 05/04/24 1227 MR#: [id number] Acct: [id number] Name: ALMA XIONG DANNIE Rep #: [id number] : 1950 74 From: Yanick Arellano MD PCP: Dr. Steve Alexandre MD Status:REG SDC Y Race: C Location: [place] [address] Anesthesia Postop Eval I Sum Anesthesia Postop Eval I Summary Anesthesia Postop Eval I Summary: Anesthesia Postop Eval I: Assessment Summary Airway patent Spontaneous unlabored respirations Mental status nausea Vomiting Anesthesia Postop Eval I: Fluid Summary Crystalloid volume administer (ml) Colloids volume administered ( ml) Blood Product volume administered (ml) Total IV fluid infused Anesthesia Postop Eval I: Summary Notes Anesthesia Complication Anesthesia Complication Comment: Post-operative progress note Anesthesia: Postop Eval II Evaluation Mental status: Awake Pain Level: 0 nausea: No Vomiting: No 05/04/24 1227 Date Yanick Marroquin Signature: Date CC: Signed Normal [facility] Special Stain Group Ion 10-0 Special Stain Group I -------- Patient Age/Sex Location Account Attending Physician -------- ALMA XIONG 74/F EN [id number] Franco Tam DO -------- Specimen: [id number] Received: 05/04/24 Status: JANEE Novak Num: [id number] Spec Type: EGD BIOPSY Subm Dr: Franco Tam DO HEADER OPERATION: EGD with biopsies PRE-OP DIAGNOSIS: Esophageal stricture, eosinophilic esophagitis TISSUE SUBMITTED: A- Random esophagus biopsy, B- Gastric antrum biopsy -------- MICROSCOPIC DIAGNOSIS A. Esophagus, random biopsy: Fragments of gastroesophageal mucosa with changes consistent with eosinophilic esophagitis. Mild chronic inflammation. Intestinal metaplasia (goblet cell metaplasia) not identified. See comment. B. Gastric antrum, biopsy: Mild gastritis. See microscopic description and comment. SJ. 05/08/2024 COMMENT A. Increased number of eosinophils (more than 20 per high power field) are noted consistent with eosinophilic esophagitis. Alcian blue/PAS stain with matched control is used in the evaluation of the specimen. B. The results of immunohistochemistry for Helicobacter pylori will be reported separately ([id number]). Case has been reviewed in consultation with Dr. Colbert who concurs with the above diagnosis. IDC:AM MICROSCOPIC DESCRIPTION Slides are reviewed. B. The specimen shows fragments of gastric mucosa with chronic inflammatory cell infiltrates in the lamina propria consisting of lymphocytes and plasma cells, consistent with mild chronic gastritis. GROSS DESCRIPTION A. Received in fixative is one container labeled with the patient's name and designated Random esophagus biopsy. The specimen consists of multiple irregular fragments of light celeste soft tissue that in aggregate measure 2.5 x 0.3 x 0.1 cm. The specimen is totally submitted in one cassette. B. Received in fixative is one container labeled with the patient's name and designated -------- Patient Age/Sex Location Account Attending Physician -------- ALMA XIONG 74/F EN [id number] Franco Tam DO -------- Gastric antrum biopsy. The specimen consists of multiple irregular fragments of light celeste soft tissue that in aggregate measure 1.0 x 0.5 x 0.1 cm. The specimen is totally submitted in one cassette. 05/05/2024 TC:3 CPT:48577a6,98837 -------- Patient Age/Sex Location Account Attending Physician -------- ALMA XIONG 74/F EN [id number] Franco Anel, DO -------- Signed (signature on file) Dr. Preet Menard MD 05/09/24 1210 -------- Normal [facility] Comment on above: Performed By: #### P SUIV #### [facility] [address] [place], [address] [id number] 04-14-2024 BEEF 0.22 kU/L Abnormal Class 0/I [facility] Comment on above: Performed By: #### L 5500.0550, L100.0100 #### [facility] [address] [place], [address] CHOCOLATE <0.10 Normal Class 0 [facility] Comment on above: Performed By: #### L 5500.0550, L100.0100 #### [facility] [address] [place], [address] CODFISH <0.10 Normal Class 0 [facility] Comment on above: Performed By: #### L 5500.0550, L100.0100 #### [facility] [address] [place], [place], [address] COMMENT Comment Normal . [facility] Comment on above: Result Comment: Maggie paz of Specific IgE Class Description of Class ----- < 0.10 0 Negative 0.10 - 0.31 0/I Equivocal/Low 0.32 - 0.55 I Low 0.56 - 1.40 II Moderate 1.41 - 3.90 III High 3.91 - 19.00 IV Very High 19.01 - 100.00 V Very High >100.00 Very High Performed By: #### L 5500.0550, L100.0100 #### [facility] [address] [place], [place], [address] CORN <0.10 Normal Class 0 [facility] Comment on above: Performed By: #### L 5500.0550, L100.0100 #### [facility] [address] [place], [place], [id number] EGG, WHOLE 0.21 kU/L Abnormal Class 0/I [facility] Comment on above: Result Comment: Perf ormed at: - [facility] [id number] Management Assistant: Lata Smalls MD, Phone: [phone] Performed By: #### L 5500.0550, L100.0100 #### [facility] [address] [place], [place], [address] MILK (COW) 2.22 kU/L Abnormal Class III [facility] Comment on above: Performed By: #### L 5500.0550, L100.0100 #### [facility] [address] [place], [address] MUSSELS <0.10 Normal Class 0 [facility] Comment on above: Performed By: #### L 5500.0550, L100.0100 #### [facility] [address] [place], [address] PEANUT <0.10 Normal Class 0 [facility] Comment on above: Performed By: #### L 5500.0550, L100.0100 #### [facility] [address] [place], [address] PORK <0.10 Normal Class 0 [facility] Comment on above: Performed By: #### L 5500.0550, L100.0100 #### [facility] [address] [place], [address] SALMON <0.10 Normal Class 0 [facility] Comment on above: Performed By: #### L 5500.0550, L100.0100 #### [facility] [address] [place], [address] SHRIMP <0.10 Normal Class 0 [facility] Comment on above: Performed By: #### L 5500.0550, L100.0100 #### [facility] [address] [place], [address] SOYBEAN <0.10 Normal Class 0 [facility] Comment on above: Performed By: #### L 5500.0550, L100.0100 #### [facility] [address] [place], [address] TUNA <0.10 Normal Class 0 [facility] Comment on above: Performed By: #### L 5500.0550, L100.0100 #### [facility] [address] [place], [address] WHEAT 0.44 kU/L Abnormal Class I [facility] Comment on above: Performed By: #### L 5500.0550, L100.0100 #### [facility] [address] [place], [address] CBC W/Diff, Automatedon 09-0 9-2023 Absolute Lymph 1.86 X10 3/uL Normal 0.83-4.51 [facility] Comment on above: Performed By: #### L 5500.0550, L100.0100 #### [facility] [address] [place], [address] Absolute Neut 4.0 X10 3/uL Normal 2.0-7.7 [facility] Comment on above: Performed By: #### L 5500.0550, L100.0100 #### [facility] [address] [place], [address] Basophils/100 WBC (Bld) 0.4 % Normal 0-1 [facility] Comment on above: Performed By: #### L 5500.0550, L100.0100 #### [facility] [address] [place], [address] Eosinophils/100 WBC (Bld) 5.5 % High 0-5 [facility] Comment on above: Performed By: #### L 5500.0550, L100.0100 #### [facility] [address] [place], [address] Erythrocyte distribution width (RBC) [Ratio] 14.6 % Normal 11.6-14.6 [facility] Comment on above: Performed By: #### L 5500.0550, L100.0100 #### [facility] [address] [place], [address] Hematocrit (Bld) [Volume fraction] 44.8 % Normal 37-47 [facility] Comment on above: Performed By: #### L 5500.0550, L100.0100 #### [facility] [address] [place], [address] Hemoglobin (Bld) [Mass/Vol] 14.5 g/dL Normal 12.0-15.0 [facility] Comment on above: Performed By: #### L 5500.0550, L100.0100 #### [facility] [address] [place], [address] IG% 0.600 Normal 0.0-0.9 [facility] Comment on above: Result Comment: IG% - Immature Granulocytes (promyelocytes, myelocytes and metamyelocytes) > 1% indicates that a LEFT SHIFT is Present. Performed By: #### L 5500.0550, L100.0100 #### [facility] [address] [place], [address] Lymphocytes/100 WBC (Bld) 27.8 % Normal 19-41 [facility] Comment on above: Performed By: #### L 5500.0550, L100.0100 #### [facility] [address] [place], [address] MCH (RBC) [Entitic mass] 27.2 pg Normal 27.0-32.0 [facility] Comment on above: Performed By: #### L 5500.0550, L100.0100 #### [facility] [address] [place], [address] MCHC (RBC) [Mass/Vol] 32.4 g/dL Normal 32-36 [facility] Comment on above: Performed By: #### L 5500.0550, L100.0100 #### [facility] [address] [place], [address] MCV (RBC) [Entitic vol] 84.1 fL Normal 81-99 [facility] Comment on above: Performed By: #### L 5500.0550, L100.0100 #### [facility] [address] [place], [address] Monocytes/100 WBC (Bld) 6.3 % Normal 0-10 [facility] Comment on above: Performed By: #### L 5500.0550, L100.0100 #### [facility] [address] [place], [address] Neutrophils/100 WBC (Bld) 59.4 % Normal 47-70 [facility] Comment on above: Performed By: #### L 5500.0550, L100.0100 #### [facility] [address] [place], [address] Nucleated RBC (Bld) [#/Vol] 0 10*3/uL Normal 0-5 [facility] Comment on above: Performed By: #### L 5500.0550, L100.0100 #### [facility] [address] [place], [address] Platelet mean volume (Bld) [Entitic vol] 10.4 fL Normal 6.2-12.0 [facility] Comment on above: Performed By: #### L 5500.0550, L100.0100 #### [facility] [address] [place], [address] Platelets (Bld) [#/Vol] 271 10*3/uL Normal 150-450 [facility] Comment on above: Performed By: #### L 5500.0550, L100.0100 #### [facility] [address] [place], [address] RBC (Bld) [#/Vol] 5.33 10*6/uL Normal 4.2-5.4 [facility] Comment on above: Performed By: #### L 5500.0550, L100.0100 #### [facility] [address] [place], [address] RDW SD 44.2 fl High 35.1-43.9 [facility] Comment on above: Performed By: #### L 5500.0550, L100.0100 #### [facility] [address] [place], [address] WBC (Bld) [#/Vol] 6.7 10*3/uL Normal 4.4-11.0 [facility] Comment on above: Performed By: #### L 5500.0550, L100.0100 #### [facility] [address] [place], [address] Gastroenterology Visit Repor ton 04-10-2024 Gastroenterology Visit Report [facility] [address] [place] [address] OFFICE VISIT Date of Service: 04/10/24 MR#: [id number] Acct: [id number] Name: ALMA XIONG Rep #: [id number] : 1950 Provider: CHEVY Bean Age/Sex: 74/F [place] [facility] [place]: Signed Intake Vital Signs 03/10/24 10:29 Height 5 ft 3 in Weight: 195 lb 8 oz BMI 34.6 BP 122/74 H Blood Pressure Location Lt brachial Position Sitting Respiration 16 Pulse 87 Pulse Source Monitor Temp 97.8 F Temp Source Temporal Pulse Oximetry (%) 97 Oxygen Delivery Method room air Intake Visit Reasons: Esophageal complaints Chief Complaint: establishment EOE Allergies ciprofloxacin (From Cipro) Allergy (Intermediate, Verified 03/10/24 10:27) hives milk (dairy) Allergy (Verified 03/10/24 10:27) Food Allergy Have you fallen in the past year?: No [facility] Medical History (Updated 04/01/24 @ 19:[address] Steve Alexandre MD) Abnormal chest CT Shortness of breath Esophageal stricture Osteoarthritis Vertigo Dysequilibrium Chronic back pain Lumbar radiculopathy Chronic neck pain Anxiety and depression GERD (gastroesophageal reflux disease) Occipital neuralgia Health care maintenance Eosinophilic esophagitis Vitamin D deficiency Osteopenia Fibromyalgia Compression fracture of body of thoracic vertebra Cholelithiasis with chronic cholecystitis Preop cardiovascular exam Abnormal ECG Chest pain Hypersomnia History of breast cancer Depression Hypothyroidism HTN (hypertension), benign Surgical History Hx of cholecystectomy Status post breast lumpectomy History of arthroscopic knee surgery History of fusion of cervical spine History of Family History Mother Breast cancer Father Cancer Bone and Bladder CA Alcoholism Grandmother Heart disease CVA (cerebral vascular accident) Sister Heart disease Cancer lung COPD (chronic obstructive pulmonary disease) Multiple sclerosis Brother Alcoholism Other Hypertension Social History Smoking Status: Former smoker quit date: 08/02/77 Tobacco: How many years used: 5 second hand exposure: No alcohol intake: current alcohol intake frequency: a few times a month substance use type: does not use what type of physical activity do you participate in: none HPI HPI Chief Complaint: establishment EOE Details: ALMA XIONG, is a 74 F who presents to the office today for establishment with [facility] She has a hx of esophageal stricture, OA, vertigo, RBBB, GERD, osteopenia, hx of breast cancer, HTN and fibromyalgia. In the past patient has seen Dr. Moon for her esophageal problems and EGDs. She is aware of her prior diagnosis of EOE and tells me she had food allergen testing done previously with numerous allergens being high. She was told to take omeprazole 40 mg daily but she continues to have cough and dysphagia. She denies abdominal pain, n/v, constipation or diarrhea. Colonoscopy 2.5.20; - Hemorrhoids found on perianal exam. - Diverticulosis in the sigmoid colon and in the descending colon. Biopsied. - The examination was otherwise normal EGD 2.5.20; - Esophageal mucosal changes consistent with eosinophilic esophagitis. Biopsied distally and in mid esophagus Small hiatal hernia noted EG junction widely patent at 38cm. - Erythematous mucosa in the antrum. Biopsied. - Normal examined duodenum. Biopsied ROS Const Constitutional: Positive for fatigue and frequent falls ENT ENT: Positive for difficulty swallowing Gastro GI: Positive for bloating, heartburn and difficulty swallowing Musc Musculoskeletal: Positive for joint pain, back pain, tingling and Arthritis Neuro Neurology: Positive for frequent falls and tingling Psych Psychiatric: Positive for anxiety Endo Endocrine: Positive for fatigue Exam Const General: cooperative and comfortable Nutritional Appearance: average body habitus and well nourished [facility] Head: normal to inspection Ears: hearing grossly normal bilaterally Nose: external nose normal Face and sinus: normal facial exam Eyes General: appearance normal, both eyes and all related structures Neck Neck: normal visual inspection Chest Chest palpation inspection: normal inspection of the chest Resp Effort Inspection: able to speak in complete sentences Cardio Palpation: normal PMI GI Inspection: normal to inspection Palpation: no hepatosplenomegaly Skin General: no rashes or lesions noted Neuro General: patient alert Extrem General: normal to inspection Psych Affect: normal affect Assessment and Plan Assessment and Plan ( (more content not included)... Normal [facility] Chest without Contraston Chest without Contrast [facility] Services [address], [place] [address] Chest without Contrast MR#: [id number] Acct: [id number] Name: ALMA XIONG Rep #: [id number] : 1950 F 74 From: Arcelia Wu MD PCP: Dr. Steve Alexandre MD Status: [facility] Study: Chest without Contrast Date of Exam: 03/30/24 Exam# [id number] Ordering Dr: Steve Alexandre MD :[id number] EXAM: CT CHEST WITHOUT INTRAVENOUS CONTRAST CLINICAL INDICATION: Chronic Dyspnea TECHNIQUE: Helically acquired images were obtained of the chest without intravenous contrast. This CT exam was performed using one or more of the following dose reduction techniques: automated exposure control, adjustment of the mA and/or kV according to patient size, and/or use of iterative reconstruction technique. RADIATION DOSE: CTDIvol = 15.74 mGy, DLP = 570.16 mGy-cm COMPARISON: No relevant prior studies available. FINDINGS: LUNGS AND PLEURAL SPACES: Some faint and small scattered groundglass opacities in the lungs. No dense alveolar infiltrate or effusion. No mass. HEART: Slight calcification at the aortic valve region. Normal heart size. No pericardial effusion. No visible coronary artery calcifications. MEDIASTINUM: See below. THYROID: Unremarkable. No thyroid lesions. BONES/JOINTS: Chronic spine changes. Chronic thoracic spine changes, including roughly 50% compression deformity of T12 mildly sclerotic. No evidence of high-grade spinal stenosis. Calcification at multiple lower thoracic and upper lumbar discs. VASCULATURE: See above. LYMPH NODES: Small calcified lymph nodes in the left prevascular region and left hilum. Mild mediastinal lipomatosis. UPPER ABDOMEN Multiple calcified granulomas in the liver and spleen. The adrenals, partially included pancreas, moderately distended stomach with mixed density material and gas are without acute abnormality. CT/Chest without Contrast IMPRESSION: Subtle hazy groundglass opacities, predominantly in the lung bases and in the dependent left upper lobe. No confluent alveolar infiltrate. Suspicious for mild pneumonitis. Old granulomatous disease. Chronic spine changes. Electronically Signed: Arcelia Wu MD at 3:16 EDT , CC: Dr. Steve Alexandre MD Health Service Worker: Signed Normal [facility] Basic Metabolic Profile (BMP )on 03-10-2024 BUN/CRE 22.8 RATIO High 10-20 [facility] Comment on above: Performed By: #### P SUIV #### [facility] [address] [place], [address] CA,Total 9.3 mg/dL Normal 8.5-10.1 [facility] Comment on above: Performed By: #### P SUIV #### [facility] [address] [place], [address] Chloride [Moles/Vol] 103 mmol/L Normal 98-107 [facility] Comment on above: Performed By: #### P SUIV #### [facility] [address] [place], [address] CO2 [Moles/Vol] 30.0 mmol/L Normal 21.0-32.0 [facility] Comment on above: Performed By: #### P SUIV #### [facility] [address] [place], [address] Creatinine [Mass/Vol] 1.01 mg/dL Normal 0.55-1.02 [facility] Comment on above: Result Comment: The validity of the calculated GFR GFRAA in patients over 70 years has not been determined. Clinical correlation is essential. Performed By: #### P SUIV #### [facility] [address] [place], [address] EST GFR - AA 69 mL/min Normal >60 [facility] Comment on above: Result Comment: Afri can Dutch GFR Calc Performed By: #### P SUIV #### [facility] [address] [place], [address] GAP 6 Normal 5-15 [facility] Comment on above: Performed By: #### P SUIV #### [facility] [address] [place], [address] GFR/1.73 sq M.predicted among non-blacks MDRD (S/P/Bld) [Vol rate/Area] 57 mL/min/{1.73_m2} Low >60 [facility] Comment on above: Result Comment: Non- GFR Calc Performed By: #### P SUIV #### [facility] [address] [place], [address] Glucose [Mass/Vol] 67 mg/dL Low 74-106 [facility] Comment on above: Performed By: #### P SUIV #### [facility] [address] [place], [address] Potassium [Moles/Vol] 3.4 mmol/L Low 3.5-5.1 [facility] Comment on above: Performed By: #### P SUIV #### [facility] [address] [place], [address] Sodium [Moles/Vol] 139 mmol/L Normal 136-145 [facility] Comment on above: Performed By: #### P SUIV #### [facility] [address] [place], [address] Urea nitrogen [Mass/Vol] 23 mg/dL High 7-18 [facility] Comment on above: Performed By: #### P SUIV #### [facility] [address] [place], [address] Internal Medicine Office Vis iton 03-10-2024 Internal Medicine Office Visit [facility] [address] [place] [address] OFFICE VISIT Date of Service: 03/10/24 MR#: [id number] Acct: [id number] Name: ALMA XIONG Rep #: [id number] : 1950 Provider: Dr. Steve lerma MD Age/Sex: 73/F Location: [facility] Status: Signed Intake Vital Signs 12/29/23 14:03 03/10/24 10:29 Height 5 ft 3 in 5 ft 3 in Weight: 195 lb 8 oz BMI 34.6 BP 122/74 H Blood Pressure Location Lt brachial Position Sitting Respiration 16 Pulse 87 Pulse Source Monitor Temp 97.8 F Temp Source Temporal Pulse Oximetry (%) 97 Oxygen Delivery Method room air Intake Visit Reasons: FOLLOW UP Chief Complaint: f/u [employer] Required: No Accompanied by: Self Is patient in pain?: No Allergies ciprofloxacin (From Cipro) Allergy (Intermediate, Verified 03/10/24 10:27) hives milk (dairy) Allergy (Verified 03/10/24 10:27) Food Allergy Medications ???Medication ???Instructions ???Recorded ???Confirmed ???Type acetaminophen 500 mg tablet 1,000 mg PO DAILY PRN Pain 09/14/22 03/10/24 History omeprazole 40 mg capsule,delayed 40 mg PO 1700 gerd #90 caps 03/16/23 03/10/24 Rx release cholecalciferol (vitamin D3) 1,250 1,250 mcg PO GARZA #20 caps 06/11/23 03/10/24 Rx mcg (50,000 unit) capsule atenolol 50 mg tablet See Rx Instructions .Route 09/14/23 03/10/24 Rx .COMPLEX #90 tabs amitriptyline 25 mg tablet 25 mg PO QHS #90 tabs 10/15/23 03/10/24 Rx alendronate 70 mg tablet 70 mg PO QWEEK #12 TABLETS 11/04/23 03/10/24 Rx levothyroxine 150 mcg tablet 150 mcg PO DAILY #90 tabs 01/14/24 03/10/24 Rx indapamide 1.25 mg tablet 1.25 mg PO QAM htn #90 tabs 02/11/24 03/10/24 Rx paroxetine HCl 40 mg tablet 40 mg PO DAILY #90 tabs 03/09/24 03/10/24 Rx Have you fallen in the past year?: No PFSH Medical History Shortness of breath Esophageal stricture Osteoarthritis Vertigo Dysequilibrium Chronic back pain Lumbar radiculopathy Chronic neck pain Anxiety and depression GERD (gastroesophageal reflux disease) Occipital neuralgia Health care maintenance Eosinophilic esophagitis Vitamin D deficiency Osteopenia Fibromyalgia Compression fracture of body of thoracic vertebra Cholelithiasis with chronic cholecystitis Preop cardiovascular exam Abnormal ECG Chest pain Hypersomnia History of breast cancer Depression Hypothyroidism HTN (hypertension), benign Surgical History Hx of cholecystectomy Status post breast lumpectomy History of arthroscopic knee surgery History of fusion of cervical spine History of Family History Mother Breast cancer Father Cancer Bone and Bladder CA Alcoholism Grandmother Heart disease CVA (cerebral vascular accident) Sister Heart disease Cancer lung COPD (chronic obstructive pulmonary disease) Multiple sclerosis Brother Alcoholism Other Hypertension Social History Smoking Status: Former smoker quit date: 08/02/77 Tobacco: How many years used: 5 second hand exposure: No alcohol intake: current alcohol intake frequency: a few times a month substance use type: does not use what type of physical activity do you participate in: none HPI HPI Chief Complaint: f/u Details: ALMA XIONG, is a 73 F who presents to the office today for follow-up. No acute concerns at this time. At her last visit due to concern for shortness of breath, she had a PFT and stress test done which both came back with no significant concerns. She denies any significant worsening since her last visit. Still gets rather winded with certain activities however does appear to be associated with lower back discomfort leading to this. No chest tightness, syncopal and near syncopal episodes. No wheezing or cough. Chronic history of lumbar radiculopathy. Recommendation has been made to follow-up with spine Ortho however due to some other commitments, had been unable to schedule. Now states that she has to time to. Has noted occasional tingling sensation in her extremities. No change in bowel or bladder habit. History of esophageal stricture and difficulty swallowing. She had been advised to follow-up with GI but due to other commitments had been unable to. She plans to schedule. Other chronic medical conditions are stable. ROS Const Constitutional: No body ache, chills, excessive sweating, fatigue, fever(s), frequent falls, headache(s), snoring, weakness or change in appetite Eyes Eyes: No blurry vision, change in vision, bulging eyes, floaters, visual disturbances, eye pain or Light sensitivity ENT ENT: No abnormal hearing, ear or m (more content not included)... Normal [facility] ED Prov Noteon 12-04-2023 ED Prov Note HPI: 12/04/2023, Time: @NICHELLE@ Alma Hernadez Tyrese is a 73 y.o. female presenting to the ED for dysuria and increased urinary frequency for 3 days but also complained of shooting pain in the anterior right leg, beginning over the last 3 days ago. The complaint has been intermittent, moderate in severity, and worsened by nothing. No fever or chills or fatigue or nausea no back pain ROS: Pertinent positives and negatives are stated within HPI, all other systems reviewed and are negative. PAST HISTORY Past Medical History: @[facility]@ Past Surgical History: has no past surgical history on file. Social History: reports that she has never smoked. She has never been exposed to tobacco smoke. She has never used smokeless tobacco. She reports that she does not drink alcohol and does not use drugs. Family History: family history is not on file. The patient's home medications have been reviewed. Allergies: Ciprofloxacin RESULTS All laboratory and radiology results have been personally reviewed by myself LABS: Results for orders placed or performed during the hospital encounter of 12/04/23 POC Urinalysis Dipstick, Auto Result Value Ref Range Spec Grav, UA <=1.005 1.005 - 1.025 pH, UA 5.0 5.0 - 7.0 Protein, UA >=300 (A) Negative mg/dL Glucose, UA 250 (A) Negative mg/dL Ketones, UA 15 (A) Negative mg/dL Bilirubin, UA Moderate (A) Negative Urobilinogen, UA >=8.0 (A) <2.0 mg/dL Blood, UA Trace-intact (A) Negative Nitrite, UA Positive (A) Negative Leukocyte Esterase, UA Large (A) Negative RADIOLOGY: Interpreted by Radiologist. Ultrasound duplex venous leg right (Results Pending) NURSING NOTES AND VITALS REVIEWED The nursing notes within the ED encounter and vital signs as below have been reviewed. Pulse 90 Temp 97 degrees F (36.1 degrees C) (Temporal) Resp 16 Ht 5' 3 Wt 81.6 kg (180 lb) LMP (LMP Unknown) SpO2 95% BMI 31.89 kg/m Oxygen Saturation Interpretation: Normal PHYSI MARTINA EXAM Constitutional/General: Alert and oriented x3, well appearing, non toxic in NAD Head: NC/AT Eyes: PERRL, EOMI Mouth: Oropharynx clear, handling secretions, no trismus Neck: Supple, full ROM, no meningeal signs Pulmonary: Lungs clear to auscultation bilaterally, no wheezes, rales, or rhonchi. Not in respiratory distress Cardiovascular: Regular rate and rhythm, no murmurs, gallops, or rubs. 2+ distal pulses Abdomen: Soft, non tender, non distended, Extremities: Moves all extremities x 4. Warm and well perfused right lower extremity negative Homans' sign and no tenderness to palpation or swelling appreciated Skin: warm and dry without rash Neurologic: GCS 15, Psych: Normal Affect -- ED COURSE/MEDICAL DECISION MAKING Medications - No data to display Medical Decision Making: Will treat UTI with Omnicef and also obtain ultrasound of right leg although the DVT very unlikely because pain only in the front of her leg therefore I will treat with anticoagulants until ultrasound obtained if in fact showing DVT Counseling: The emergency provider has spoken with the patient and discussed today's results, in addition to providing specific details for the plan of care and counseling regarding the diagnosis and prognosis. Questions are answered at this time and they are agreeable with the plan. ----- IMPRESSION AND DISPOSITION ----- IMPRESSION 1. Acute cystitis without hematuria 2. Right leg pain DISPOSITION Disposition: discharged to home Patient condition is stable Summation Patient Course: Stable ED Medications administered this visit: Medications - No data to display New Prescriptions from this visit: New Prescriptions cefdinir (OMNICEF) 300 MG capsule Take 1 (one) capsule (300 mg total) by mouth 2 (two) times a day . Follow-up: [facility] [address] [facility] [address] [facility] [id number] In 3 days Final Impression: 1. Acute cystitis without hematuria 2. Right leg pain (Please note that portions of this note were completed with a voice recognition program. Efforts were made to edit the dictations but occasionally words are mis-transcribed.) Radha Boyd MD 12/04/23 1333 AUTHENTICATED BY RADHA BOYD, ON 12/04/2023 13:33:10 Normal [facility] POC URINALYSIS DIPSTICK,AUTO - RALSon 12-04-2023 POC BILIRUBIN, URINE Moderate Abnormal Negative [facility] POC BLOOD, URINE Trace-intact Abnormal Negative [facility] POC GLUCOSE, URINE 250 mg/dL Abnormal Negative [facility] POC KETONES, URINE 15 mg/dL Abnormal Negative [facility] POC LEUKOCYTE ESTERASE, URINE Large Abnormal Negative [facility] POC NITRITE, URINE Positive Abnormal Negative [facility] POC PH, URINE 5.0 Normal 5.0-7.0 [facility] POC PROTEIN, URINE >=300 Abnormal Negative [facility] POC SPECIFIC GRAVITY <= Normal 1.005-1 .02 5 [facility] POC UROBILINOGEN >=8.0 Abnormal < 2.0 [facility] Absolute lymphocyte countOrd ered By: Steve Alexandre on 11-22-2023 Lymphocytes Auto (Unsp spec) [#/Vol] 1.24 10*3/uL 0.83-4.51 [facility] Automated lymphocyte count a s percentage of total leukocytesOrdered By: Steve Alexandre on 11-22-2023 Lymphocytes/100 WBC Auto (Unsp spec) 22.5 % 19-41 [facility] Basophil percentageOrdered B y: Steve Alexandre on 11-22-2023 Basophils/100 WBC (Bld) 0.5 % 0-1 [facility] Bilirubin [Mass/Vol] 0.60 mg/dL 0.20-1.00 [facility] Comment on above: For patients on eltr ombopag therapy, use of Dimension [place] TBIL is not recommended. Chloride [Moles/Vol] 104 mmol/L 98-107 [facility] Cholesterol [Mass/Vol] 198 mg/dL <200 [facility] Comment on above: <200 mg/dL Desirable 200-240 mg/dL Borderline >240 mg/dL High Risk Eosinophils/100 WBC (Bld) 7.1 % 0-5 [facility] Glucose [Mass/Vol] 127 mg/dL 74-106 [facility] Comment on above: Fasting Glucose resu lt greater than or equal to 126 mg/dL suggests DIABETES MELLITUS per A.D.A. criteria. Hemoglobin (Bld) [Mass/Vol] 14.1 g/dL 12.0-15.0 [facility] Monocytes/100 WBC (Bld) 6.4 % 0-10 [facility] Neutrophils (Bld) [#/Vol] 3.5 10*3/uL 2.0-7.7 [facility] Neutrophils/100 WBC (Bld) 62.8 % 47-70 [facility] Potassium [Moles/Vol] 3.9 mmol/L 3.5-5.1 [facility] Protein [Mass/Vol] 7.2 g/dL 6.4-8.2 [facility] Sodium [Moles/Vol] 137 mmol/L 136-145 [facility] Triglyceride [Mass/Vol] 163 mg/dL <199 [facility] Comment on above: The drugs N-Acetylcy steine and Metamizole may falsely depress this assay.Serum Triglycerides Reference Interval Normal <150 mg/dL Borderline high 150 - 199 mg/dL High 200 - 499 mg/dL Very High > or = 500 mg/dL WBC (Bld) [#/Vol] 5.5 10*3/uL 4.4-11.0 [facility] Determination of erythrocyte mean corpuscular volume (MCV)Ordered By: Steve Alexandre on 11-22-2023 MCV (RBC) [Entitic vol] 84.1 fL 81-99 [facility] Erythrocyte distribution wid th ratioOrdered By: Steve Alexandre on 11-22-2023 Erythrocyte distribution width (RBC) [Ratio] 14.4 % 11.6-14.6 [facility] Erythrocyte distribution wid th standard deviationOrdered By: Steve Alexandre on 11-22-2023 Erythrocyte distribution width (RBC) [Entitic vol] 43.8 fL 35.1-43.9 [facility] Hematocrit Auto (Bld) [Volum e fraction]Ordered By: Steve Alexandre on 11-22-2023 Hematocrit (Bld) [Volume fraction] 42.9 % 37-47 [facility] Immature granulocytes/100 WB C Auto (Bld)Ordered By: [facility] on 11-22-2023 Immature granulocytes/100 WBC (Bld) 0.700 % 0.0-0.9 [facility] Comment on above: IG% - Immature Granu locytes (promyelocytes, myelocytes and metamyelocytes) > 1% indicates that a LEFT SHIFT is Present. Laboratory - Chemistry and C hemistry - challengeOrdered By: Hiramgainesvilledaniela Alexandre on 11-22-2023 Albumin/Globulin [Mass ratio] 1.1 {ratio} 0.9-2.4 [facility] ALP [Catalytic activity/Vol] 52 U/L 45-117 [facility] ALT [Catalytic activity/Vol] 34 U/L 13-56 [facility] Cholesterol in HDL [Mass/Vol] 42 mg/dL >40 [facility] Comment on above: The drugs N-Acetylcy steine and Metamizole may falsely depress this assay. Reference Range HDL <40 mg/dL Low HDL Cholesterol HDL >or= 60 mg/dL High HDL Cholesterol Cholesterol in LDL [Mass/Vol] 123 mg/dL 0-130 [facility] CO2 [Moles/Vol] 29.0 mmol/L 21.0-32.0 [facility] Globulin (S) [Mass/Vol] 3.5 g/dL 2.2-4.2 [facility] Urea nitrogen/Creatinine [Mass ratio] 17.8 mg/mg 10-20 [facility] Laboratory - Hematology and Cell countsOrdered By: Steve Alexandre on 11-22-2023 MCH (RBC) [Entitic mass] 27.6 pg 27.0-32.0 [facility] MCHC (RBC) [Mass/Vol] 32.9 g/dL 32-36 [facility] Nucleated RBC/100 WBC (Bld) [Ratio] 0 % 0-5 [facility] Platelet mean volume (Bld) [Entitic vol] 11.2 fL 6.2-12.0 [facility] Platelets (Bld) [#/Vol] 247 10*3/uL 150-450 [facility] No Panel InformationOrdered By: Steve Alexandre on 11-22-2023 Estimated GFR (MDRD) Amer 65 mL/min >60 [facility] Comment on above: GFR Calc Estimated GFR (MDRD) Non-Af Amer 54 mL/min >60 [facility] Comment on above: Non- GFR Calc Vitamin D 25-Hydroxy 58.4 ng/mL [facility] Comment on above: Vitamin D 25(OH) Sta tus Range Deficiency <20 ng/mL (50nmol/L) Insufficiency 20 - 30 ng/mL (50 - 75 nmol/L) Sufficiency 30 - 100 ng/mL (75 - 250 nmol/L) Toxicity >100 ng/mL (>250 nmol/L) VLDL Cholesterol 33 mg/dL 5-40 [facility] RBC Auto (Bld) [#/Vol]Ordere d By: Steve Alexandre on 11-22-2023 RBC (Bld) [#/Vol] 5.10 10*6/uL 4.2-5.4 [facility] Serum or plasma calcium nereida urement (mass/volume)Ordered By: Steve Alexandre on 11-22-2023 Calcium [Mass/Vol] 8.9 mg/dL 8.5-10.1 [facility] Serum or plasma creatinine m easurement (mass/volume)Ordered By: Steve Alexandre on 11-22-2023 Creatinine [Mass/Vol] 1.07 mg/dL 0.55-1.02 [facility] Comment on above: The validity of the calculated GFR & GFRAA in patients over 70 years has not been determined. Clinical correlation is essential. Serum or plasma thyroid stim ulating hormone (TSH) measurement (units/volume)Ordered By: Steve Alexandre on 11-22-2023 TSH Qn 7.78 uIU/mL 0.358-3.74 [facility] Serum or plasma urea nitroge n measurement (mass/volume)Ordered By: Steve Alexandre on 11-22-2023 Urea nitrogen [Mass/Vol] 19 mg/dL 7-18 [facility] Thin prep Papanicolaou smear with manual screeningOrdered By: Steve Alexandre on 11-22-2023 Thin prep Papanicolaou smear with manual screening 3.7 g/dL 3.2-5.0 [facility] Thin prep Papanicolaou smear with manual screening 20 U/L 15-37 [facility] Thin prep Papanicolaou smear with manual screening 4 5-15 [facility] PT Initial Evaluationon 04-03 PT Initial Evaluation No report was sent Normal [employer] Therapy Communicationon 04-03 Therapy Communication Message [facility] canceled today 04/26/23. Pt cancel d/t illness. Signatures Electronically signed by : Chelsey Velasquez, PT; Apr 26 2023 1:20PM EST (Author) [employer] Basophil percentageOrdered B y: Steve Alexandre on 03-12-2023 Chloride [Moles/Vol] 105 mmol/L 98-107 [facility] Glucose [Mass/Vol] 132 mg/dL 74-106 [facility] Comment on above: Fasting Glucose resu lt greater than or equal to 126 mg/dL suggests DIABETES MELLITUS per A.D.A. criteria. Potassium [Moles/Vol] 3.9 mmol/L 3.5-5.1 [facility] Sodium [Moles/Vol] 140 mmol/L 136-145 [facility] Laboratory - Chemistry and C hemistry - challengeOrdered By: Steve Alexandre on 03-12-2023 CO2 [Moles/Vol] 30.0 mmol/L 21.0-32.0 [facility] Urea nitrogen/Creatinine [Mass ratio] 16.0 mg/mg 10-20 [facility] No Panel InformationOrdered By: Steve Alexandre on 03-12-2023 Estimated GFR (MDRD) Amer 66 mL/min >60 [facility] Comment on above: GFR Calc Estimated GFR (MDRD) Non-Af Amer 54 mL/min >60 [facility] Comment on above: Non- GFR Calc Serum or plasma calcium nereida urement (mass/volume)Ordered By: Steve Alexandre on 03-12-2023 Calcium [Mass/Vol] 9.3 mg/dL 8.5-10.1 [facility] Serum or plasma creatinine m easurement (mass/volume)Ordered By: Steve Alexandre on 03-12-2023 Creatinine [Mass/Vol] 1.06 mg/dL 0.55-1.02 [facility] Comment on above: The validity of the calculated GFR & GFRAA in patients over 70 years has not been determined. Clinical correlation is essential. Serum or plasma urea nitroge n measurement (mass/volume)Ordered By: Steve Alexandre on 03-12-2023 Urea nitrogen [Mass/Vol] 17 mg/dL 7-18 [facility] Thin prep Papanicolaou smear with manual screeningOrdered By: michael Alexandre on 03-12-2023 Thin prep Papanicolaou smear with manual screening 5 5-15 [facility] Absolute lymphocyte countOrd ered By: Dr. Yepez on 09-15-2022 Lymphocytes Auto (Unsp spec) [#/Vol] 1.70 10*3/uL 0.83-4.51 [facility] Basophil percentageOrdered B y: Dr. Yepez on 09-15-2022 Basophils/100 WBC (Bld) 0.4 % 0-1 [facility] Chloride [Moles/Vol] 105 mmol/L 98-107 [facility] Cholesterol [Mass/Vol] 148 mg/dL <200 [facility] Comment on above: <200 mg/dL Desirable 200-240 mg/dL Borderline >240 mg/dL High Risk Eosinophils/100 WBC (Bld) 3.8 % 0-5 [facility] Glucose [Mass/Vol] 114 mg/dL 74-106 [facility] Comment on above: Fasting Glucose resu lt from 100 to 125 mg/dL suggests IMPAIRED HOMEOSTASIS per A.D.A. criteria. Neutrophils (Bld) [#/Vol] 2.9 10*3/uL 2.0-7.7 [facility] Neutrophils/100 WBC (Bld) 55.0 % 47-70 [facility] Potassium [Moles/Vol] 3.4 mmol/L 3.5-5.1 [facility] Sodium [Moles/Vol] 140 mmol/L 136-145 [facility] Triglyceride [Mass/Vol] 134 mg/dL <199 [facility] Comment on above: The drugs N-Acetylcy steine and Metamizole may falsely depress this assay.Serum Triglycerides Reference Interval Normal <150 mg/dL Borderline high 150 - 199 mg/dL High 200 - 499 mg/dL Very High > or = 500 mg/dL WBC (Bld) [#/Vol] 5.3 10*3/uL 4.4-11.0 [facility] Blood erythrocytes count (nu mber/volume)Ordered By: Dr. Yepez on 09-15-2022 RBC (Bld) [#/Vol] 4.79 10*6/uL 4.2-5.4 [facility] Blood hemoglobin measurement (mass/volume)Ordered By: Dr. Yepez on 09-15-2022 Hemoglobin (Bld) [Mass/Vol] 12.8 g/dL 12.0-15.0 [facility] Blood lymphocytes/100 leukoc ytesOrdered By: Dr. Yepez on 09-15-2022 Lymphocytes/100 WBC (Bld) 32.1 % 19-41 [facility] Blood monocytes/100 leukocyt esOrdered By: Dr. Yepez on 09-15-2022 Monocytes/100 WBC (Bld) 8.3 % 0-10 [facility] Blood platelet mean volumeOr dered By: Dr. Yepez on 09-15-2022 Platelet mean volume (Bld) [Entitic vol] 11.0 fL 6.2-12.0 [facility] Determination of erythrocyte mean corpuscular volume (MCV)Ordered By: Dr. Yepez on 09-15-2022 MCV (RBC) [Entitic vol] 82.9 fL 81-99 [facility] Hematocrit Auto (Bld) [Volum e fraction]Ordered By: Dr. Yepez on 09-15-2022 Hematocrit (Bld) [Volume fraction] 39.7 % 37-47 [facility] Laboratory - Chemistry and C hemistry - challengeOrdered By: Dr. Yepez on 09-15-2022 CO2 [Moles/Vol] 28.0 mmol/L 21.0-32.0 [facility] Urea nitrogen/Creatinine [Mass ratio] 15.0 mg/mg 10-20 [facility] Laboratory - Hematology and Cell countsOrdered By: Dr. Yepez on 09-15-2022 Erythrocyte distribution width (RBC) [Entitic vol] 44.2 fL 35.1-43.9 [facility] Erythrocyte distribution width (RBC) [Ratio] 14.6 % 11.6-14.6 [facility] Immature granulocytes/100 WBC (Bld) 0.400 % 0.0-0.9 [facility] Comment on above: IG% - Immature Granu locytes (promyelocytes, myelocytes and metamyelocytes) > 1% indicates that a LEFT SHIFT is Present. MCH (RBC) [Entitic mass] 26.7 pg 27.0-32.0 [facility] Nucleated RBC/100 WBC (Bld) [Ratio] 0 % 0-5 [facility] MCHC Auto (RBC) [Mass/Vol]Or dered By: Dr. Yepez on 09-15-2022 MCHC (RBC) [Mass/Vol] 32.2 g/dL 32-36 [facility] No Panel InformationOrdered By: Dr. Yepez on 09-15-2022 Estimated Creatinine Clearance Calc 46.56 ml/min [facility] Estimated GFR (MDRD) Amer 77 mL/min >60 [facility] Comment on above: GFR Calc Estimated GFR (MDRD) Non-Af Amer 63 mL/min >60 [facility] Comment on above: Non- GFR Calc Thyroid Stimulating Hormone (TSH) 1.52 uIU/mL 0.358-3.74 [facility] Platelets bldOrdered By: Dr. Yepez on 09-15-2022 Platelets (Bld) [#/Vol] 231 10*3/uL 150-450 [facility] Serum or plasma calcium nereida urement (mass/volume)Ordered By: Dr. Yepez on 09-15-2022 Calcium [Mass/Vol] 8.9 mg/dL 8.5-10.1 [facility] Serum or plasma cholesterol in HDL measurement (mass/volume)Ordered By: Dr. Yepez on 09-15-2022 Cholesterol in HDL [Mass/Vol] 36 mg/dL >40 [facility] Comment on above: The drugs N-Acetylcy steine and Metamizole may falsely depress this assay. Reference Range HDL <40 mg/dL Low HDL Cholesterol HDL >or= 60 mg/dL High HDL Cholesterol Serum or plasma cholesterol in VLDL measurement (mass/volume)Ordered By: Dr. Yepez on 09-15-2022 Cholesterol in VLDL [Mass/Vol] 27 mg/dL 5-40 [facility] Serum or plasma creatinine m easurement (mass/volume)Ordered By: Dr. Yepez on 09-15-2022 Creatinine [Mass/Vol] 0.93 mg/dL 0.55-1.02 [facility] Comment on above: The validity of the calculated GFR & GFRAA in patients over 70 years has not been determined. Clinical correlation is essential. Serum or plasma low density lipoprotein (LDL) cholesterol measurement (mass/volume)Ordered By: Dr. Yepez on 09-15-2022 Cholesterol in LDL [Mass/Vol] 85 mg/dL 0-130 [facility] Serum or plasma urea nitroge n measurement (mass/volume)Ordered By: Dr. Yepez on 09-15-2022 Urea nitrogen [Mass/Vol] 14 mg/dL 7-18 [facility] Thin prep Papanicolaou smear with manual screeningOrdered By: Dr. Yepez on 09-15-2022 Thin prep Papanicolaou smear with manual screening 7 5-15 [facility] Absolute lymphocyte countOrd ered By: Dr. Alberts on 09-14-2022 Lymphocytes Auto (Unsp spec) [#/Vol] 1.55 10*3/uL 0.83-4.51 [facility] Basophil percentageOrdered B y: Dr. Alberts on 09-14-2022 Basophils/100 WBC (Bld) 0.4 % 0-1 [facility] Chloride [Moles/Vol] 105 mmol/L 98-107 [facility] Eosinophils/100 WBC (Bld) 5.8 % 0-5 [facility] Glucose [Mass/Vol] 115 mg/dL 74-106 [facility] Comment on above: Fasting Glucose resu lt from 100 to 125 mg/dL suggests IMPAIRED HOMEOSTASIS per A.D.A. criteria. Neutrophils (Bld) [#/Vol] 2.5 10*3/uL 2.0-7.7 [facility] Neutrophils/100 WBC (Bld) 53.3 % 47-70 [facility] Potassium [Moles/Vol] 3.7 mmol/L 3.5-5.1 [facility] Comment on above: Slight Hemolysis, Re sult may be falsely increased. Sodium [Moles/Vol] 140 mmol/L 136-145 [facility] WBC (Bld) [#/Vol] 4.7 10*3/uL 4.4-11.0 [facility] Blood erythrocytes count (nu mber/volume)Ordered By: Dr. Alberts on 09-14-2022 RBC (Bld) [#/Vol] 5.04 10*6/uL 4.2-5.4 [facility] Blood hemoglobin measurement (mass/volume)Ordered By: Dr. Alberts on 09-14-2022 Hemoglobin (Bld) [Mass/Vol] 14.0 g/dL 12.0-15.0 [facility] Blood lymphocytes/100 leukoc ytesOrdered By: Dr. Alberts on 09-14-2022 Lymphocytes/100 WBC (Bld) 33.1 % 19-41 [facility] Blood monocytes/100 leukocyt esOrdered By: Dr. Alberts on 09-14-2022 Monocytes/100 WBC (Bld) 6.8 % 0-10 [facility] Blood platelet mean volumeOr dered By: Dr. Alberts on 09-14-2022 Platelet mean volume (Bld) [Entitic vol] 10.7 fL 6.2-12.0 [facility] Determination of erythrocyte mean corpuscular volume (MCV)Ordered By: Dr. Alberts on 09-14-2022 MCV (RBC) [Entitic vol] 82.5 fL 81-99 [facility] Hematocrit Auto (Bld) [Volum e fraction]Ordered By: Dr. Alberts on 09-14-2022 Hematocrit (Bld) [Volume fraction] 41.6 % 37-47 [facility] INR in Blood by Coagulation assayOrdered By: Dr. Alberts on 09-14-2022 INR Coag (Bld) [Relative time] 1.3 {INR} [facility] Laboratory - Chemistry and C hemistry - challengeOrdered By: Dr. Alberts on 09-14-2022 CO2 [Moles/Vol] 30.0 mmol/L 21.0-32.0 [facility] Urea nitrogen/Creatinine [Mass ratio] 16.5 mg/mg 10-20 [facility] Laboratory - Chemistry and C hemistry - challengeOrdered By: Dr. Yepez on 09-14-2022 Magnesium [Mass/Vol] 2.4 mg/dL 1.6-2.6 [facility] Comment on above: Slight Hemolysis, Re sult may be falsely increased. Laboratory - CoagulationOrde red By: Dr. Alberts on 09-14-2022 aPTT Coag (Bld) [Time] 27.8 s 24.1-36.2 [facility] PT Coag (PPP) [Time] 15.4 s 11.7-14.9 [facility] Laboratory - Hematology and Cell countsOrdered By: Dr. Alberts on 09-14-2022 Erythrocyte distribution width (RBC) [Entitic vol] 42.7 fL 35.1-43.9 [facility] Erythrocyte distribution width (RBC) [Ratio] 14.4 % 11.6-14.6 [facility] Immature granulocytes/100 WBC (Bld) 0.600 % 0.0-0.9 [facility] Comment on above: IG% - Immature Granu locytes (promyelocytes, myelocytes and metamyelocytes) > 1% indicates that a LEFT SHIFT is Present. MCH (RBC) [Entitic mass] 27.8 pg 27.0-32.0 [facility] Nucleated RBC/100 WBC (Bld) [Ratio] 0 % 0-5 [facility] MCHC Auto (RBC) [Mass/Vol]Or dered By: Dr. Alberts on 09-14-2022 MCHC (RBC) [Mass/Vol] 33.7 g/dL 32-36 [facility] No Panel InformationOrdered By: Dr. Alberts on 09-14-2022 Estimated Creatinine Clearance Calc 50.52 ml/min [facility] Estimated GFR (MDRD) Amer 73 mL/min >60 [facility] Comment on above: GFR Calc Estimated GFR (MDRD) Non-Af Amer 60 mL/min >60 [facility] Comment on above: Non- GFR Calc Troponin I High Sensitivity 4 pg/mL 3.0-54.0 [facility] Comment on above: Please Note: New Gloria t Units and Gender Specific Reference Ranges. For more information see Policy Stat Procedure [place] High Sensitivity Troponin (TNIH) and attachments. Platelets bldOrdered By: Dr. Alberts on 09-14-2022 Platelets (Bld) [#/Vol] 214 10*3/uL 150-450 [facility] Serum or plasma calcium nereida urement (mass/volume)Ordered By: Dr. Alberts on 09-14-2022 Calcium [Mass/Vol] 9.1 mg/dL 8.5-10.1 [facility] Serum or plasma creatinine m easurement (mass/volume)Ordered By: Dr. Alberts on 09-14-2022 Creatinine [Mass/Vol] 0.97 mg/dL 0.55-1.02 [facility] Comment on above: The validity of the calculated GFR & GFRAA in patients over 70 years has not been determined. Clinical correlation is essential. Serum or plasma urea nitroge n measurement (mass/volume)Ordered By: Dr. Alberts on 09-14-2022 Urea nitrogen [Mass/Vol] 16 mg/dL 7-18 [facility] Thin prep Papanicolaou smear with manual screeningOrdered By: Dr. Alberts on 09-14-2022 Thin prep Papanicolaou smear with manual screening 5 5-15 [facility] Absolute lymphocyte countOrd ered By: Dr. Alexandre on 07-17-2022 Lymphocytes Auto (Unsp spec) [#/Vol] 1.41 10*3/uL 0.83-4.51 [facility] Basophil percentageOrdered B y: Dr. Alexandre on 07-17-2022 Basophils/100 WBC (Bld) 0.3 % 0-1 [facility] Bilirubin [Mass/Vol] 0.60 mg/dL 0.20-1.00 [facility] Comment on above: For patients on eltr ombopag therapy, use of Dimension [place] TBIL is not recommended. Chloride [Moles/Vol] 104 mmol/L 98-107 [facility] Cholesterol [Mass/Vol] 200 mg/dL <200 [facility] Comment on above: <200 mg/dL Desirable 200-240 mg/dL Borderline >240 mg/dL High Risk Eosinophils/100 WBC (Bld) 7.0 % 0-5 [facility] Glucose [Mass/Vol] 94 mg/dL 74-106 [facility] Neutrophils (Bld) [#/Vol] 3.7 10*3/uL 2.0-7.7 [facility] Neutrophils/100 WBC (Bld) 61.7 % 47-70 [facility] Potassium [Moles/Vol] 3.7 mmol/L 3.5-5.1 [facility] Protein [Mass/Vol] 7.4 g/dL 6.4-8.2 [facility] Sodium [Moles/Vol] 139 mmol/L 136-145 [facility] Triglyceride [Mass/Vol] 196 mg/dL <199 [facility] Comment on above: The drugs N-Acetylcy steine and Metamizole may falsely depress this assay.Serum Triglycerides Reference Interval Normal <150 mg/dL Borderline high 150 - 199 mg/dL High 200 - 499 mg/dL Very High > or = 500 mg/dL WBC (Bld) [#/Vol] 6.0 10*3/uL 4.4-11.0 [facility] Blood erythrocytes count (nu mber/volume)Ordered By: Dr. Alexandre on 07-17-2022 RBC (Bld) [#/Vol] 5.38 10*6/uL 4.2-5.4 [facility] Blood hemoglobin measurement (mass/volume)Ordered By: Dr. Alexandre on 07-17-2022 Hemoglobin (Bld) [Mass/Vol] 14.5 g/dL 12.0-15.0 [facility] Blood lymphocytes/100 leukoc ytesOrdered By: Dr. Alexandre on 07-17-2022 Lymphocytes/100 WBC (Bld) 23.7 % 19-41 [facility] Blood monocytes/100 leukocyt esOrdered By: Dr. Alexandre on 07-17-2022 Monocytes/100 WBC (Bld) 7.0 % 0-10 [facility] Blood platelet mean volumeOr dered By: Dr. Alexandre on 07-17-2022 Platelet mean volume (Bld) [Entitic vol] 11.8 fL 6.2-12.0 [facility] Determination of erythrocyte mean corpuscular volume (MCV)Ordered By: Dr. Alexandre on 07-17-2022 MCV (RBC) [Entitic vol] 83.8 fL 81-99 [facility] Hematocrit Auto (Bld) [Volum e fraction]Ordered By: Dr. Alexandre on 07-17-2022 Hematocrit (Bld) [Volume fraction] 45.1 % 37-47 [facility] Laboratory - Chemistry and C hemistry - challengeOrdered By: Dr. Alexandre on 07-17-2022 ALP [Catalytic activity/Vol] 52 U/L 45-117 [facility] ALT [Catalytic activity/Vol] 26 U/L 13-56 [facility] CO2 [Moles/Vol] 27.0 mmol/L 21.0-32.0 [facility] Globulin (S) [Mass/Vol] 3.5 g/dL 2.2-4.2 [facility] Urea nitrogen/Creatinine [Mass ratio] 17.6 mg/mg 10-20 [facility] Laboratory - Hematology and Cell countsOrdered By: Dr. Alexandre on 07-17-2022 Erythrocyte distribution width (RBC) [Entitic vol] 42.7 fL 35.1-43.9 [facility] Erythrocyte distribution width (RBC) [Ratio] 14.1 % 11.6-14.6 [facility] Immature granulocytes/100 WBC (Bld) 0.300 % 0.0-0.9 [facility] Comment on above: IG% - Immature Granu locytes (promyelocytes, myelocytes and metamyelocytes) > 1% indicates that a LEFT SHIFT is Present. MCH (RBC) [Entitic mass] 27.0 pg 27.0-32.0 [facility] Nucleated RBC/100 WBC (Bld) [Ratio] 0 % 0-5 [facility] MCHC Auto (RBC) [Mass/Vol]Or dered By: Dr. Alexandre on 07-17-2022 MCHC (RBC) [Mass/Vol] 32.2 g/dL 32-36 [facility] No Panel InformationOrdered By: Dr. Alexandre on 07-17-2022 Estimated GFR (MDRD) Amer 64 mL/min >60 [facility] Comment on above: GFR Calc Estimated GFR (MDRD) Non-Af Amer 53 mL/min >60 [facility] Comment on above: Non- GFR Calc Thyroid Stimulating Hormone (TSH) 1.81 uIU/mL 0.358-3.74 [facility] Platelets bldOrdered By: Dr. Alexandre on 07-17-2022 Platelets (Bld) [#/Vol] 268 10*3/uL 150-450 [facility] Serum or plasma albumin nereida urement (mass/volume)Ordered By: Dr. Alexandre on 07-17-2022 Albumin [Mass/Vol] 3.9 g/dL 3.2-5.0 [facility] Serum or plasma albumin/glob ulin mass ratioOrdered By: Dr. Alexandre on 07-17-2022 Albumin/Globulin [Mass ratio] 1.1 {ratio} 0.9-2.4 [facility] Serum or plasma calcium nereida urement (mass/volume)Ordered By: Dr. Alexandre on 07-17-2022 Calcium [Mass/Vol] 9.4 mg/dL 8.5-10.1 [facility] Serum or plasma cholesterol in HDL measurement (mass/volume)Ordered By: Dr. Alexandre on 07-17-2022 Cholesterol in HDL [Mass/Vol] 40 mg/dL >40 [facility] Comment on above: The drugs N-Acetylcy steine and Metamizole may falsely depress this assay. Reference Range HDL <40 mg/dL Low HDL Cholesterol HDL >or= 60 mg/dL High HDL Cholesterol Serum or plasma cholesterol in VLDL measurement (mass/volume)Ordered By: Dr. Alexandre on 07-17-2022 Cholesterol in VLDL [Mass/Vol] 39 mg/dL 5-40 [facility] Serum or plasma creatinine m easurement (mass/volume)Ordered By: Dr. Alexandre on 07-17-2022 Creatinine [Mass/Vol] 1.08 mg/dL 0.55-1.02 [facility] Comment on above: The validity of the calculated GFR & GFRAA in patients over 70 years has not been determined. Clinical correlation is essential. Serum or plasma low density lipoprotein (LDL) cholesterol measurement (mass/volume)Ordered By: Dr. Alexandre on 07-17-2022 Cholesterol in LDL [Mass/Vol] 121 mg/dL 0-130 [facility] Serum or plasma urea nitroge n measurement (mass/volume)Ordered By: Dr. Alexandre on 07-17-2022 Urea nitrogen [Mass/Vol] 19 mg/dL 7-18 [facility] Thin prep Papanicolaou smear with manual screeningOrdered By: Dr. Alexandre on 07-17-2022 Thin prep Papanicolaou smear with manual screening 15 U/L 15-37 [facility] Thin prep Papanicolaou smear with manual screening 8 5-15 [facility] Basophil percentageon 2021 Basophil percentage >100 SEEN /hpf 0-5 [facility] Work Phone: Bilirubin Test strip Ql (U)o n 04-20-2022 Bilirubin Ql (U) 6 mg/dL Negative [facility] Work Phone: Comment on above: COLOR OF URINE MAY A FFECT DIPSTICK RESULTS. Ketones Test strip Ql (U)on 04-20-2022 Ketones Ql (U) 5 mg/dl Negative [facility] Work Phone: Mucus LM Ql (Urine sed)on Mucus Ql (Urine sed) 0 SEEN /hpf [facility] Work Phone: Nitrite Test strip Ql (U)on 04-20-2022 Nitrite Ql (U) Positive Negative [facility] Work Phone: Protein Test strip Ql (U)on 04-20-2022 Protein Ql (U) 100 mg/dl Negative [facility] Work Phone: Squamous epithelial cells de tection in urine sediment by light microscopyon 04-20-2022 Epithelial cells.squamous LM Ql (Urine sed) 0-5 SEEN /hpf 5-10 [facility] Work Phone: Urine blood detectionon 04-02 RBC Ql (U) 50 /ul Negative [facility] Work Phone: RBC Ql (U) 0 SEEN /hpf 0-5 [facility] Work Phone: Urine clarityon 04-20-2022 Clarity (U) Cloudy Clear [facility] Work Phone: Urine color determinationon 04-20-2022 Color (U) SEE COMMENT BELOW Yellow [facility] Work Phone: Comment on above: Visual Urine Color: ORANGE Urine glucose detectionon Glucose Ql (U) Normal mg/dl Normal [facility] Work Phone: Urine leukocyte esterase det ection by dipstickon 04-20-2022 Leukocyte esterase Test strip Ql (U) 500 /ul Negative [facility] Work Phone: Urine pHon 04-20-2022 pH (U) 6.0 [pH] 5.0 - 8.0 [facility] Work Phone: Urine sediment bacteria coun t by microscopy (number/high power field)on 04-20-2022 Bacteria LM.HPF (Urine sed) [#/Area] 2 /[HPF] None Seen [facility] Work Phone: Urine specific gravity measu rementon 04-20-2022 Specific gravity (U) [Rel density] 1.020 1.002-1.03 0 [facility] Work Phone: Urobilinogen Auto test strip Ql (U)on 04-20-2022 Urobilinogen Ql (U) 12 mg/dl Normal [facility] Work Phone: Basophil percentageon 2021 Chloride [Moles/Vol] 104 mmol/L 98-107 [facility] Work Phone: Glucose [Mass/Vol] 98 mg/dL 74-106 [facility] Work Phone: Potassium [Moles/Vol] 4.1 mmol/L 3.5-5.1 [facility] Work Phone: Comment on above: Slight Hemolysis, Re sult may be falsely increased. Sodium [Moles/Vol] 139 mmol/L 136-145 [facility] Work Phone: Laboratory - Chemistry and C hemistry - challengeon 04-08-2022 CO2 [Moles/Vol] 28.0 mmol/L 21.0-32.0 [facility] Work Phone: Urea nitrogen/Creatinine [Mass ratio] 18.8 mg/mg 10-20 [facility] Work Phone: No Panel Informationon 04-08 Estimated GFR (MDRD) Amer 74 mL/min >60 [facility] Work Phone: Comment on above: GFR Calc Estimated GFR (MDRD) Non-Af Amer 61 mL/min >60 [facility] Work Phone: Comment on above: Non- GFR Calc Serum or plasma calcium nereida urement (mass/volume)on 04-08-2022 Calcium [Mass/Vol] 9.3 mg/dL 8.5-10.1 [facility] Work Phone: Serum or plasma creatinine m easurement (mass/volume)on 04-08-2022 Creatinine [Mass/Vol] 0.96 mg/dL 0.55-1.02 [facility] Work Phone: Comment on above: The validity of the calculated GFR & GFRAA in patients over 70 years has not been determined. Clinical correlation is essential. Serum or plasma urea nitroge n measurement (mass/volume)on 04-08-2022 Urea nitrogen [Mass/Vol] 18 mg/dL 7-18 [facility] Work Phone: Thin prep Papanicolaou smear with manual screeningon 04-08-2022 Thin prep Papanicolaou smear with manual screening 7 5-15 [facility] Work Phone: XR Chest 2 Viewson 8 XR Chest 2 Views Exam Date/Time:06/17 15:20 ESTReason for Exam:chronic coughReportSTUDY:XR Chest 2 Views; 06/17/2018 3:20 pmINDICATION:chronic cough.COMPARISON:None.ACCESS ION NUMBER(S):[id number] KAYA CLINICIAN:Dave Rico:PA and lateral views of the chest were obtained. No focal infiltrate, pleural effusion or pneumothorax is identified. The cardiac silhouette is within normal limits for size. Mild discogenic degenerative changes are seen throughout the thoracic spine.IMPRESSION:No focal infiltrate or pneumothorax. FINAL REPORT Dictated: 06/17/2018 3:23 pm Ada SAL, Dannie CSigned (Electronic Signature): 06/17/2018 3:23 pmSigned by: Dannie Caballero MD Technologist: AMILCAR Martinez [facility] C REACTIVE PROTEINon 018 C reactive protein (CRP) 7.2 mg/L Normal 0-10 [facility] Comment on above: Result Comment: Test ing performed at [place] [address] Performed By: #### E SR, CREACT ####[place] [address] ESRon 02-23-2018 Erythrocyte sedimentation rate 2 mm/h Normal [facility] Comment on above: Result Comment: Test ing performed at [place] [address] Performed By: #### E SR, CREACT ####[place] [address] PROGRESSon 02-23-2018 [facility] NOTES Normal [facility] Culture, urine Bacteria identified Cx Nom (U) Presumptive E. coli [facility] Work Phone: Vital Signs Date Time Vital Sign Value Performing Clinician Rony goode 01-10-2025 12:51-0400 Body height 162.[address] Steve Alexandre MD Work Phone: [facility] 01-10-2025 12:51-0400 Body mass index (BMI) [Ratio] 33.6 kg/m2 Dr. Steve Aelxandre MD Work Phone: [facility] 01-10-2025 12:51-0400 Body temperature 97.6 [degF] Dr. Steve Alexandre MD Work Phone: [facility] 01-10-2025 12:51-0400 Body weight 88.[address] Steve Alexandre MD Work Phone: [facility] 01-10-2025 12:51-0400 Diastolic blood pressure 80 mm[Hg] Dr. Steve Alexandre MD Work Phone: [facility] 01-10-2025 12:51-0400 Heart rate 91 /min Dr. Steve Alexandre MD Work Phone: [facility] 01-10-2025 12:51-0400 Respiratory rate 16 /min Dr. Steve Alexandre MD Work Phone: [facility] 01-10-2025 12:51-0400 SaO2% (BldA) [Mass fraction] 89 % Dr. Steve Alexandre MD Work Phone: [facility] 01-10-2025 12:51-0400 Systolic blood pressure 128 mm[Hg] Dr. Steve Alexandre MD Work Phone: [facility] 12-15-2024 10:29-0400 Body height 162.[address] Steve Alexandre MD Work Phone: [facility] 12-15-2024 10:29-0400 Body mass index (BMI) [Ratio] 32.5 kg/m2 Dr. Steve Alexandre MD Work Phone: [facility] 12-15-2024 10:29-0400 Body weight 86.[address] Steve Alexandre MD Work Phone: [facility] 11-15-2024 12:46-0400 Body mass index (BMI) [Ratio] 32.9 kg/m2 Dr. Steve Alexandre MD Work Phone: [facility] 11-15-2024 12:46-0400 Body temperature 97.3 [degF] Dr. Steve Alexandre MD Work Phone: [facility] 11-15-2024 12:46-0400 Body weight 87.[address] Steve Alexandre MD Work Phone: [facility] 11-15-2024 12:46-0400 Diastolic blood pressure 78 mm[Hg] Dr. Steve Alexandre MD Work Phone: [facility] 11-15-2024 12:46-0400 Heart rate 77 /min Dr. Steve Alexandre MD Work Phone: [facility] 11-15-2024 12:46-0400 Respiratory rate 20 /min Dr. Steve Alexandre MD Work Phone: [facility] 11-15-2024 12:46-0400 SaO2% (BldA) [Mass fraction] 98 % Dr. Steve Alexandre MD Work Phone: [facility] 11-15-2024 12:46-0400 Systolic blood pressure 128 mm[Hg] Dr. Steve Alexandre MD Work Phone: [facility] 11-03-2024 13:13-0400 Body height 162.[address] Steve Alexandre MD Work Phone: [facility] 11-03-2024 13:13-0400 Body mass index (BMI) [Ratio] 33.5 kg/m2 Dr. Steve Alexandre MD Work Phone: [facility] 11-03-2024 13:13-0400 Body temperature 97.2 [degF] Dr. Steve Alexandre MD Work Phone: [facility] 11-03-2024 13:13-0400 Body weight 88.[address] Steve Alexandre MD Work Phone: [facility] 11-03-2024 13:13-0400 Diastolic blood pressure 74 mm[Hg] Dr. Steve Alexandre MD Work Phone: [facility] 11-03-2024 13:13-0400 Heart rate 90 /min Dr. Steve Alexandre MD Work Phone: [facility] 11-03-2024 13:13-0400 Respiratory rate 16 /min Dr. Steve Alexandre MD Work Phone: [facility] 11-03-2024 13:13-0400 SaO2% (BldA) [Mass fraction] 94 % Dr. Steve Alexandre MD Work Phone: [facility] 11-03-2024 13:13-0400 Systolic blood pressure 118 mm[Hg] Dr. Steve Alexandre MD Work Phone: [facility] 09-22-2024 14:04-0500 Body mass index (BMI) [Ratio] 34.3 kg/m2 Dr. Steve Alexandre MD Work Phone: [facility] 09-22-2024 14:04-0500 Body weight 90.[address] Steve Alexandre MD Work Phone: [facility] 09-19-2024 09:17-0500 Body weight 86.[address] Steve Alexandre MD Work Phone: [facility] 09-19-2024 09:17-0500 Heart rate 89 /min Dr. Steve Alexandre MD Work Phone: [facility] 09-19-2024 09:17-0500 SaO2% (BldA) [Mass fraction] 97 % Dr. Steve Alexandre MD Work Phone: [facility] 08-23-2024 08:08-0500 Body mass index (BMI) [Ratio] 34 kg/m2 Dr. Steve Alexandre MD Work Phone: [facility] 08-23-2024 08:08-0500 Body temperature 97.4 [degF] Dr. Steve Alexandre MD Work Phone: [facility] 08-23-2024 08:08-0500 Body weight 89.[address] Steve Alexandre MD Work Phone: [facility] 08-23-2024 08:08-0500 Diastolic blood pressure 69 mm[Hg] Dr. Steve Alexandre MD Work Phone: [facility] 08-23-2024 08:08-0500 Heart rate 89 /min Dr. Steve Alexandre MD Work Phone: [facility] 08-23-2024 08:08-0500 Respiratory rate 18 /min Dr. Steve Alexandre MD Work Phone: [facility] 08-23-2024 08:08-0500 SaO2% (BldA) [Mass fraction] 95 % Dr. Steve Alexandre MD Work Phone: [facility] 08-23-2024 08:08-0500 Systolic blood pressure 140 mm[Hg] Dr. Steve Alexandre MD Work Phone: [facility] 08-07-2024 12:22-0500 Body temperature 98.1 [degF] Dr. Steve Alexandre MD Work Phone: [facility] 08-07-2024 12:22-0500 Diastolic blood pressure 68 mm[Hg] Dr. Steve Alexandre MD Work Phone: [facility] 08-07-2024 12:22-0500 Heart rate 67 /min Dr. Steve Alexandre MD Work Phone: [facility] 08-07-2024 12:22-0500 Respiratory rate 18 /min Dr. Steve Alexandre MD Work Phone: [facility] 08-07-2024 12:22-0500 SaO2% (BldA) [Mass fraction] 95 % Dr. Steve Alexandre MD Work Phone: [facility] 08-07-2024 12:22-0500 Systolic blood pressure 115 mm[Hg] Dr. Steve Alexandre MD Work Phone: [facility] 08-07-2024 09:05-0500 Body mass index (BMI) [Ratio] 34 kg/m2 Dr. Steve Alexandre MD Work Phone: [facility] 08-07-2024 09:05-0500 Body weight [address] Steve Alexandre MD Work Phone: [facility] 11-22-2023 10:17-0400 Body height 160.[address] Steve Alexandre Work Phone: [facility] 11-22-2023 10:17-0400 Body mass index (BMI) [Ratio] 34 kg/m2 Dr. Steve Alexandre Work Phone: [facility] 11-22-2023 10:17-0400 Body temperature 98.5 [degF] Dr. Steve Alexandre Work Phone: [facility] 11-22-2023 10:17-0400 Body weight 87.[address] Steve Alexandre Work Phone: [facility] 11-22-2023 10:17-0400 Diastolic blood pressure 80 mm[Hg] Dr. Steve Alexandre Work Phone: [facility] 11-22-2023 10:17-0400 Heart rate 78 /min Dr. Steve Alexandre Work Phone: [facility] 11-22-2023 10:17-0400 Respiratory rate 16 /min Dr. Steve Alexandre Work Phone: [facility] 11-22-2023 10:17-0400 SaO2% (BldA) [Mass fraction] 97 % Dr. Steve Alexandre Work Phone: [facility] 11-22-2023 10:17-0400 Systolic blood pressure 122 mm[Hg] Dr. Steve Alexandre Work Phone: [facility] 03-12-2023 10:26-0400 Body height 160.[address] Steve Alexandre Work Phone: [facility] 03-12-2023 10:26-0400 Body mass index (BMI) [Ratio] 33.8 kg/m2 Dr. Steve Alexandre Work Phone: [facility] 03-12-2023 10:26-0400 Body temperature 97.5 [degF] Dr. Steve Alexandre Work Phone: [facility] 03-12-2023 10:26-0400 Body weight 86.[address] Steve Alexandre Work Phone: [facility] 03-12-2023 10:26-0400 Diastolic blood pressure 64 mm[Hg] Dr. Steve Alexandre Work Phone: [facility] 03-12-2023 10:26-0400 Heart rate 83 /min Dr. Steve Alexandre Work Phone: [facility] 03-12-2023 10:26-0400 Respiratory rate 16 /min Dr. Steve Alexandre Work Phone: [facility] 03-12-2023 10:26-0400 SaO2% (BldA) [Mass fraction] 99 % Dr. Steve Alexandre Work Phone: [facility] 03-12-2023 10:26-0400 Systolic blood pressure 110 mm[Hg] Dr. Steve Alexandre Work Phone: [facility] 09-15-2022 09:53-0500 Body temperature 97.9 [degF] Dr. Steve Alexandre Work Phone: [facility] 09-15-2022 09:53-0500 Diastolic blood pressure 46 mm[Hg] Dr. Steve Alexandre Work Phone: [facility] 09-15-2022 09:53-0500 Heart rate 73 /min Dr. Steve Alexandre Work Phone: [facility] 09-15-2022 09:53-0500 Respiratory rate 18 /min Dr. Steve Alexandre Work Phone: [facility] 09-15-2022 09:53-0500 SaO2% (BldA) [Mass fraction] 95 % Dr. Steve Alexandre Work Phone: [facility] 09-15-2022 09:53-0500 Systolic blood pressure 121 mm[Hg] Dr. Steve Alexandre Work Phone: [facility] 09-14-2022 17:17-0500 Body mass index (BMI) [Ratio] 33.1 kg/m2 Dr. Steve Alexandre Work Phone: [facility] 09-14-2022 12:22-0500 Body height 160.[address] Steve Alexandre Work Phone: [facility] 09-14-2022 12:22-0500 Body weight 84.[address] Steve Alexandre Work Phone: [facility] 09-14-2022 11:39-0500 Body temperature 98 [degF] Dr. Steve Alexandre Work Phone: [facility] 09-14-2022 11:39-0500 Diastolic blood pressure 63 mm[Hg] Dr. Steve Alexandre Work Phone: [facility] 09-14-2022 11:39-0500 Heart rate 82 /min Dr. Steve Alexandre Work Phone: [facility] 09-14-2022 11:39-0500 Respiratory rate 20 /min Dr. Steve Alexandre Work Phone: [facility] 09-14-2022 11:39-0500 SaO2% (BldA) [Mass fraction] 97 % Dr. Steve Alexandre Work Phone: [facility] 09-14-2022 11:39-0500 Systolic blood pressure 115 mm[Hg] Dr. Steve Alexandre Work Phone: [facility] 09-14-2022 10:03-0500 Body height 167.[address] Steve Alexandre Work Phone: [facility] 09-14-2022 10:03-0500 Body mass index (BMI) [Ratio] 31.1 kg/m2 Dr. Steve Alexandre Work Phone: [facility] 09-14-2022 10:03-0500 Body weight 87.[address] Steve Alexandre Work Phone: [facility] 07-17-2022 12:56-0500 Body temperature 97.5 [degF] Dr. Steve Alexandre Work Phone: [facility] 07-17-2022 12:56-0500 Body weight 84.[address] Steve Alexandre Work Phone: [facility] 07-17-2022 12:56-0500 Diastolic blood pressure 64 mm[Hg] Dr. Steve Alexandre Work Phone: [facility] 07-17-2022 12:56-0500 Heart rate 76 /min Dr. Steve Alexandre Work Phone: [facility] 07-17-2022 12:56-0500 Respiratory rate 16 /min Dr. Steve Alexandre Work Phone: [facility] 07-17-2022 12:56-0500 SaO2% (BldA) [Mass fraction] 98 % Dr. Steve Alexandre Work Phone: [facility] 07-17-2022 12:56-0500 Systolic blood pressure 104 mm[Hg] Dr. Steve Alexandre Work Phone: [facility] 04-20-2022 15:55-0400 Body height 160.[address] Steve Alexandre Work Phone: [facility] Work Phone: 04-20-2022 15:55-0400 Body mass index (BMI) [Ratio] 33.3 kg/m2 Dr. Steve Alexandre Work Phone: [facility] Work Phone: 04-20-2022 15:55-0400 Body temperature 97.5 [degF] Dr. Steve Alexandre Work Phone: [facility] Work Phone: 04-20-2022 15:55-0400 Body weight 85.[address] Steve Alexandre Work Phone: [facility] Work Phone: 04-20-2022 15:55-0400 Diastolic blood pressure 80 mm[Hg] Dr. Steve Alexandre Work Phone: [facility] Work Phone: 04-20-2022 15:55-0400 Heart rate 57 /min Dr. Steve Alexandre Work Phone: [facility] Work Phone: 04-20-2022 15:55-0400 Respiratory rate 16 /min Dr. Steve Alexandre Work Phone: [facility] Work Phone: 04-20-2022 15:55-0400 SaO2% (BldA) [Mass fraction] 91 % Dr. Steve Alexandre Work Phone: [facility] Work Phone: 04-20-2022 15:55-0400 Systolic blood pressure 122 mm[Hg] Dr. Steve Alexandre Work Phone: [facility] Work Phone: 04-08-2022 14:09-0400 Body mass index (BMI) [Ratio] 33.3 kg/m2 Dr. Steve Alexandre Work Phone: [facility] Work Phone: 04-08-2022 14:09-0400 Body temperature 96.6 [degF] Dr. Steve Alexandre Work Phone: [facility] Work Phone: 04-08-2022 14:09-0400 Body weight 85.[address] Steve Alexandre Work Phone: [facility] Work Phone: 04-08-2022 14:09-0400 Diastolic blood pressure 72 mm[Hg] Dr. Steve Alexandre Work Phone: [facility] Work Phone: 04-08-2022 14:09-0400 Heart rate 50 /min Dr. Steve Alexandre Work Phone: [facility] Work Phone: 04-08-2022 14:09-0400 Respiratory rate 18 /min Dr. Steve Alexandre Work Phone: [facility] Work Phone: 04-08-2022 14:09-0400 SaO2% (BldA) [Mass fraction] 97 % Dr. Steve Alexandre Work Phone: [facility] Work Phone: 04-08-2022 14:09-0400 Systolic blood pressure 114 mm[Hg] Dr. Steve Alexandre Work Phone: [facility] Work Phone: 01-01-2022 14:18-0400 Body mass index (BMI) [Ratio] 33.2 kg/m2 Dr. Steve lAexandre Work Phone: [facility] Work Phone: 01-01-2022 14:18-0400 Body temperature 97.9 [degF] Dr. Steve Alexandre Work Phone: [facility] Work Phone: 01-01-2022 14:18-0400 Body weight 84.[address] Steve Alexandre Work Phone: [facility] Work Phone: 01-01-2022 14:18-0400 Diastolic blood pressure 68 mm[Hg] Dr. Steve Alexandre Work Phone: [facility] Work Phone: 01-01-2022 14:18-0400 Heart rate 75 /min Dr. Steve Alexandre Work Phone: [facility] Work Phone: 01-01-2022 14:18-0400 Respiratory rate 16 /min Dr. Steve Alexandre Work Phone: [facility] Work Phone: 01-01-2022 14:18-0400 SaO2% (BldA) [Mass fraction] 98 % Dr. Steve Alexandre Work Phone: [facility] Work Phone: 01-01-2022 14:18-0400 Systolic blood pressure 114 mm[Hg] Dr. Steve Alexandre Work Phone: [facility] Work Phone: Encounters Encounter Date Encounter Type Care Provider Facility Start: 01-10-2025 End: 01-10-[address] Steve Alexandre MD Work Phone: [facility] Work Phone: Start: 01-10-2025 End: 01-10-2025 Patient encounter procedure Ricci REECE -[facility] Work Phone: Start: 01-10-2025 Patient encounter procedure JOHANNE Edmondson -Pulmonary Services/Neurology Work Phone: Start: 01-02-2025 End: 01-02-2025 ambulatory MATT García [facility] Start: 12-15-2024 End: 12-15-[address] Yordan Shen MD -[facility] Work Phone: Start: 12-15-2024 End: 12-15-[address] Steve Alexandre MD Work Phone: [facility] Work Phone: Start: 12-05-2024 End: 12-05-[address] Steve Alexandre MD Work Phone: [facility] Work Phone: Start: 12-05-2024 End: 12-05-[address] Steve Alexandre MD -Laboratory Work Phone: Start: 12-05-2024 End: 12-05-2024 ambulatory [facility] Facility:[facility] Start: 11-27-2024 End: 11-27-[address] Yordan Shen MD -[facility] Work Phone: Start: 11-27-2024 End: 11-27-2024 ambulatory Yordan Shen Facility:[facility] Start: 11-21-2024 End: 11-21-2024 Patient encounter procedure Otilia REECE -[facility] Work Phone: Start: 11-21-2024 End: 11-21-[address] Steve Alexandre MD Work Phone: [facility] Work Phone: Start: 11-21-2024 End: 11-21-2024 ambulatory [facility] Facility:[facility] Start: 11-15-2024 End: 11-15-2024 Patient encounter procedure JOHANNE Edmondson -[facility] Work Phone: Start: 11-15-2024 End: 11-15-2024 ambulatory Dina Edmondson Facility:[facility] Start: 11-03-2024 End: 11-03-[address] Steve Alexandre MD -[facility] Work Phone: Start: 11-03-2024 End: 11-03-[address] Steve Alexandre MD Work Phone: [facility] Work Phone: Start: 11-03-2024 End: 11-03-2024 ambulatory [facility] Facility:[facility] Start: 09-25-2024 ambulatory Thai Hurst Facility:[facility] Start: 09-25-2024 Non-patient / Non-visit Dr. Thai Hurst DO -[facility] Start: 09-22-2024 End: 09-22-[address] Yordan Shen MD -[facility] Work Phone: Start: 09-22-2024 End: 09-22-2024 ambulatory Yordan Shen Facility:[facility] Start: 09-19-2024 ambulatory Kalyan Adler Facility:[facility] Start: 09-19-2024 Non-patient / Non-visit Dr. Kalyan Adler MD -[facility] Start: 09-19-2024 End: 09-19-[address] Thai Hurst DO -Pulmonary Services/Neurology Work Phone: Start: 09-19-2024 End: 09-19-2024 ambulatory Thai Hurst Facility:[facility] Start: 08-23-2024 End: 08-23-[address] Thai Hurst DO -[facility] Work Phone: Start: 08-23-2024 End: 08-23-2024 ambulatory Thai Hurst Facility:[facility] Start: 08-07-2024 End: 08-07-2024 Admission to same day surgery center Dr. Liam Engle MD -[facility] Start: 08-07-2024 End: 08-07-2024 ambulatory [facility] Facility:[facility] Start: 06-23-2024 ambulatory Otilia Francecrow Solares ty:[facility] Start: 06-21-2024 End: 06-21-2024 ambulatory STEVE ALEXANDRE Facility:[facility] Start: 06-21-2024 End: 06-21-2024 Patient encounter procedure Panda Mcguire OD Work Phone: Optometry Comment on above: Regular astigmatism, bilateral (Primary Dx); Hyperopia, bilateral; Presbyopia; Combined forms of age-related cataract of both eyes; Choroidal nevus of both eyes; Vitreous floaters of both eyes Start: 06-14-2024 End: 06-14-2024 ambulatory Steve Alexandre Facility:[facility] Start: 06-14-2024 End: 06-14-2024 ambulatory Steve Alexandre Facility:[facility] Start: 05-04-2024 End: 05-04-2024 ambulatory Franco Tam Facility:[facility] Start: 04-10-2024 End: 04-10-2024 ambulatory [facility] Facility:[facility] Start: 04-10-2024 End: 04-10-2024 [facility] Start: 03-30-2024 End: 03-30-2024 ambulatory Hiramgainesvilledaniela Alexandre Facility:[facility] Start: 03-10-2024 End: 03-10-2024 ambulatory Steve Alexandre Facility:[facility] Start: 03-10-2024 End: 03-10-2024 ambulatory Hiramgainesvilledaniela Alexandre Facility:[facility] Start: 12-04-2023 End: 12-04-2023 Emergency department patient visit STEVE ALEXANDRE [facility] Start: 11-22-2023 End: 11-22-[address] Steve Alexandre Work Phone: [facility] Work Phone: Start: 11-22-2023 End: 11-22-[address] Steve Alexandre Work Phone: [facility] Work Phone: Start: 03-12-2023 End: 03-12-[address] Steve Alexandre Work Phone: [facility] Work Phone: Start: 03-12-2023 End: 03-12-[address] Steve Alexandre Work Phone: [facility] Work Phone: Start: 09-15-2022 Non-patient / Non-visit Dr. Steve Alexandre Work Phone: [facility] Start: 09-14-2022 Non-patient / Non-visit Dr. Steve Alexandre Work Phone: [facility] Start: 09-14-2022 End: 09-15-2022 Evaluation and management of inpatient Dr. Steve Alexandre Work Phone: [facility] Start: 09-14-2022 End: 09-15-[address] Steve Alexandre Work Phone: [facility] Work Phone: Start: 07-30-2022 End: 07-30-[address] Steve Alexandre Work Phone: [facility] Work Phone: Start: 07-30-2022 End: 07-30-[address] Steve Alexandre Work Phone: [facility], [facility] Start: 07-17-2022 End: 07-17-[address] Steve Alexandre Work Phone: [facility] Work Phone: Start: 07-17-2022 End: 07-17-[address] Steve Alexandre Work Phone: [facility] Start: 04-20-2022 End: 04-20-[address] Steve Alexandre Work Phone: [facility] Work Phone: Start: 04-20-2022 End: 04-20-[address] Steve Alexandre Work Phone: [facility] Start: 04-08-2022 End: 04-08-[address] Steve Alexandre Work Phone: [facility] Internal [facility] Start: 01-01-2022 End: 01-01-[address] Steve Alexandre Work Phone: [facility] Start: [address] Steve Alexandre Work Phone: [facility] Start: 09-05-[address] Steve Alexandre Work Phone: [facility] Start: 06-17-2018 End: 06-18-[address] [facility] Facility:[facility] Start: 06-17-2018 Patient encounter procedure Facility:[id number] Start: 02-23-2018 Patient encounter [facility] Procedures Date Procedure Procedure Detail Performing Clinician Start: 11-27-2024 MRI of thoracic spine Dr. Steve Alexandre MD Work Phone: Start: 11-21-2024 Urnls dip stick/tablet reagent auto microscopy Dr. Steve Alexandre MD Work Phone: Start: 11-21-2024 In-vitro immunologic test Dr. Steve Alexandre MD Work Phone: Comment on above: QuantiFERON-TB Gold Plus is a qualitativ e indirect test forM tuberculosis infection (including disease) and isintended for use in conjunction with risk assessment,radiography, and other medical and diagnostic evaluations.The QuantiFERON-TB Gold Plus result is determined bysubtracting the Nil value from either TB antigen (Ag)value. The Mitogen tube serves as a control for the test. No response to M tub erculosis antigens detected.Infection with M tuberculosis is unlikely, but high riskindividuals should be considered for additional testing(ATS/IDSA/CDC Clinical Practice Guidelines, 2017). Thereference range is an Antigen minus Nil result of <0.35IU/mL.The specimen received for QuantiFERON testing was incubatedby the ordering institution. Specific procedures outlinedin our Directory of Services and in the package insert forthe QuantiFERON Gold (In Tube) test must be followed toenable for proper stimulation of cells for the productionof interferon gamma. Chemiluminescence immunoassaymethodologyPerformed at: [facility] [id number] Director: Edin Prater PhD, Phone: [phone] Start: 11-21-2024 Vitamin D, 25-hydroxy measurement Dr. Julieth Alexandre MD Work Phone: Comment on above: Vitamin D StatusDeficiency: <20 ng/mL (5 0nmol/L)Insufficiency: 20-30 ng/mL (50-75 nmol/L)Sufficiency: 30-100 ng/mL (75-250 nmol/L)Toxicity: >100 ng/mL (>250 nmol/L) Start: 11-21-[address] Steve Alexandre MD Work Phone: Start: 09-22-[address] Steve Alexandre MD Work Phone: Start: 09-14-2022 MRI of brain without contrast Dr. Bipin Alexandre Work Phone: Start: 09-14-2022 CT angiography of head and neck Dr. Hiram Alexandre Work Phone: Start: 09-14-2022 CT of head without contrast Dr. Katie Alexandre Work Phone: Start: 09-14-2022 Plain chest X-ray Dr. Steve Alexandre Work Phone: Start: 07-30-2022 X-ray of lumbosacral spine Dr. Steve Alexandre Work Phone: Start: 09-06-2019 Colonoscopy Panda Mcguire II, OD Work Phone: Start: 03-17-2006 Lipid 1996 panel - Serum or Plasma Panda samaniego II, OD Work Phone: H/O: section History of C-sectio n Dr. Steve Alexandre Work Phone: History of cholecystectomy Hx of cholecystectomy Dr. Setve Alexandre Work Phone: Comment on above: 09/18/2019 History of mastectomy Status pos t breast lumpectomy Dr. Steve Alexandre Work Phone: History of operative procedure on knee History of arthroscopic knee surgery Dr. Steve Alexandre Work Phone: Urine culture Dr. Steve Alexandre Work Phone: Plan of Treatment Date Care Activity Detail Author Start: 07-04-2025 End: 07-04-2025 Patient encounter procedure 07/04/2025 1:00 PM EST Office Visit [facility] [address] [place] [address] Panda Mcguire H II, OD [address] [place] [address] Eye exam/[facility] Comment on above: Eye exam/[facility] Start: 01-22-2025 ambulatory Ambulatory Facility:[facility] Start: 01-10-2025 ambulatory Ambulatory Facility:[facility] Start: 12-13-2024 Measurement of respi ratory function [facility] Start: 08-07-2024 Anes esoph thyrd lar ynx trach & lymph neck 1yr ANESTH NECK ORGAN 1YR/> [facility] Start: 08-07-2024 Largsc exc bola&/strp g cords/epigl mcrscp/tlscp LARYNSCOP W/TUMR EXC + SCOPE [facility] Start: 08-07-2024 Patient discharge [facility] Start: 08-07-2024 Ambulation without limitation [facility] Start: 08-07-2024 Elevation of head of bed [facility] Start: 08-07-2024 Medical regimen orde rs management [facility] Start: 08-07-2024 Medication education [facility] Start: 08-07-2024 Procedure discontinued [facility] Start: 08-07-2024 Taking patient vital signs [facility] Start: 08-07-2024 Vital signs measurements [facility] Start: 11-22-2023 Patient referral [facility] Work Phone: Start: 08-02-2023 Advance Directive Discussion Advance Directive Discussion [facility] Start: 03-12-2023 Patient referral [facility] Work Phone: Start: 09-15-2022 Patient discharge [facility] Start: 09-14-2022 Following clinical p athway protocol [facility] Start: 09-14-2022 Ambulation without limitation [facility] Start: 09-14-2022 Assessment of risk o f venous thromboembolism [facility] Start: 09-14-2022 Cardiac monitoring [facility] Start: 09-14-2022 Catheterization of vein [facility] Start: 09-14-2022 Continuous pulse oximetry [facility] Start: 09-14-2022 Elevation of head of bed [facility] Start: 09-14-2022 Exercises [facility] Start: 09-14-[address] anned interventions [facility] Start: 09-14-2022 Insertion of cathete r into peripheral vein [facility] Start: 09-14-2022 Measuring intake and output [facility] Start: 09-14-2022 Notification of physician [facility] Start: 09-14-2022 Oxygen therapy [facility] Start: 09-14-2022 Providing care accor ding to standard [facility] Start: 09-14-2022 Referral to occupati onal therapist [facility] Start: 09-14-2022 Referral to service [facility] Start: 09-14-2022 Speech therapy assessment [facility] Start: 09-14-2022 Tobacco use cessatio n education [facility] Start: 09-14-2022 [facility] Start: 09-14-2022 Admission procedure [facility] Start: 09-14-2022 CT of head without contrast STROKE Brain/Head without Cont [facility] Start: 09-14-2022 CT Unspecified body region WO contrast [facility] Start: 09-14-2022 Oxygen therapy [facility] Start: 09-14-2022 [facility] Start: 10-31-2021 Screening for malign ant neoplasm of colon [facility] Start: 09-06-2020 Screening for malign ant neoplasm of colon Colonoscopy [facility] Start: 2017 Screening for osteoporosis Bone Dens ity Screening [facility] Start: 03-17-2011 Lipid panel Lipid Screening [facility] Start: 03-25-2010 Diabetes Screening Diabetes Screenin g [facility] Start: 11-30-2008 Screening for malign ant neoplasm of breast Mammogram Screening [facility] Start: 1997 Screening for malign ant neoplasm of colon [facility] Start: 1971 Urine microalbumin profile DTa P,Tdap,Td Vaccine (1 - Tdap) [facility] Start: 1970 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 Steve Alexandre MD Work Phone: [facility] 05-21-2022 influenza, high dose seasonal, preservative-free Dr. Steve Alexandre Work Phone: [facility] 07-18-2021 Covid (Moderna) Dr. Katie Alexandre Work Phone: [facility] 11-01-2020 Covid (Moderna) Dr. Katie Alexandre Work Phone: [facility] 10-02-2020 Lashaid Radhaa) Dr. Katie Alexandre Work Phone: [facility] 05-02-[address] Steve Alexandre Work Phone: [facility] 05-22-2008 influenza virus vaccine, unspecified formulation Panda Mcguire II, OD Work Phone: [facility] Payers Date Payer Category Payer Self-pay [id number] 2021 Medicare [id number] 2018 Unknown 1950 Unknown [id number] 2.16.84 0.1.976535.3.579.2.717 1950 Unknown [id number] 2.16. 840.1.994771.3.579.2.356 1950 Unknown [id number] 2.16. 840.1.603718.3.579.2.902 1950 Unknown [id number] 2.16.8 40.1.259304.3.579.2.651 1950 Unknown [id number] 2.16.8 40.1.837907.3.579.2.651 Medicare [id number] Unknown [id number] Unknown AARP [id number] Unknown ANTHEM [id number] 66 [id number] Unknown [id number] 2.16.8 40.1.402288.3.579.2.462 Unknown [id number] 2.16.8 40.1.291504.3.579.2.462 Unknown [id number] 2.16.8 40.1.477874.3.579.2.462 Unknown [id number] 2.16.8 40.1.640194.3.579.2.462 Unknown [id number] 2.16.8 40.1.879130.3.579.2.462 Unknown [id number] 2.16.8 40.1.702767.3.579.2.462 Unknown [id number] 2.16.8 40.1.980656.3.579.2.462 Unknown [id number] 2.16.8 40.1.067746.3.579.2.462 Unknown [id number] 2.16.8 40.1.818819.3.579.2.462 Unknown [id number] 2.16.8 40.1.550242.3.579.2.462 Unknown [id number] 2.16.8 40.1.581121.3.579.2.462 Unknown [id number] 2.16.8 40.1.875061.3.579.2.462 Unknown [id number] 2.16.8 40.1.231351.3.579.2.462 Unknown [id number] 2.16.8 40.1.567996.3.579.2.462 Unknown [id number] 2.16.8 40.1.451419.3.579.2.462 Unknown [id number] 2.16.8 40.1.940350.3.579.2.462 Unknown [id number] 2.16.8 40.1.701038.3.579.2.462 Unknown [id number] 2.16.8 40.1.560801.3.579.2.462 Unknown [id number] 2.16.8 40.1.831789.3.579.2.462 Unknown [id number] 2.16.8 40.1.976045.3.579.2.462 Unknown [id number] 2.16.8 40.1.286689.3.579.2.462 Unknown [id number] 2.16.8 40.1.199598.3.579.2.462 Unknown [id number] 2.16.8 40.1.516264.3.579.2.462 Unknown [id number] 2.16.8 40.1.409210.3.579.2.462 Unknown [id number] 2.16.8 40.1.221299.3.579.2.462 Unknown [id number] 2.16.8 40.1.172110.3.579.2.462 Unknown [id number] 2.16.8 40.1.780584.3.579.2.462 Social History Date Type Detail Facility Start: 04-20-2022 End: 06-11-2023 Tobacco smoking status [facility] Unknown if ever smoked [facility] Start: 09-05-2019 Occasional [facility] Start: 09-05-2019 None [facility] Start: 09-05-2019 Spouse/ Signif icant Other [facility] Start: 1950 Sex Assigned At Female [facility] Start: 02-13-2020 End: 01-04-2025 Tobacco smoking status VAIS Ex-smoker [facility] History of tobacco use Current smoker [facility] History of tobacco use Cigarette Smoker [facility] Start: 02-13-2020 End: 05-12-2023 Cigarettes smoked current (pack per day) - Reported 0.5 [facility] Start: 02-13-2020 Tobacco use and exposure Smokeless tobacco non-user [facility] Start: 06-21-2024 Alcoholic beverage intake Current drinker of alcohol (finding) [facility] Start: 05-12-2023 Tobacco use panel [facility] National Score (1-10 0), lower number is lower risk 79 [facility] Start: 10-29-2008 Alcohol Comment 1-2 drinks per week. Caffeine: prefers decaf [facility] Start: 1950 Sex assigned at Not on file [facility] Start: 11-06-2024 End: 11-25-2024 Sex Female (finding) [facility] Medical Equipment Procedure Code Equipment Code Equipment Original Text Equipment Identifier Dates Total cholecystectomy with exploration of common bile duct CLIP,HEMJUSTUS RUDD WECK FDA Start: 09-18-2019 Total cholecystectomy with exploration of common bile duct CLIP,HEMOLOCK TOBIN WECK FDA Start: 09-18-2019 Total cholecystectomy with exploration of common bile duct CLIP,HEMOLOHERBERT RUDD WECK FDA Start: 09-18-2019 Total cholecystectomy with exploration of common bile duct CLIP,HEMOLOCK TOBIN WECK FDA Start: 09-18-2019 Total cholecystectomy with exploration of common bile duct CLIP,HEMOLOCK MED WECK FDA Start: 09-18-2019 Total cholecystectomy with exploration of common bile duct CLIP,HEMOLOCK TOBIN WEHERBERT FDA Start: 09-18-2019 Total cholecystectomy with exploration of common bile duct CLIP,HEMOLOHERBERT RUDD WEHERBERT FDA Start: 09-18-2019 Total cholecystectomy with exploration of common bile duct CLIP,HEMOLOHERBERT LOPEZ FDA Start: 09-18-2019 Total cholecystectomy with exploration of common bile duct CLIP,HEMOLOCK TOBIN WEHERBERT FDA Start: 09-18-2019 Total cholecystectomy with exploration of common bile duct CLIP,HEMOLOCK TOBIN WECK FDA Start: 09-18-2019 Total cholecystectomy with exploration of common bile duct CLIP,HEMOLOCK TOBIN WEHERBERT FDA Start: 09-18-2019 Total cholecystectomy with exploration of common bile duct CLIP,HEMOLOCK TOBIN WEHERBERT FDA Start: 09-18-2019 Total cholecystectomy with exploration of common bile duct CLIP,HEMOLOHERBERT RUDD WECK FDA Start: 09-18-2019 Total cholecystectomy with exploration of common bile duct CLIP,HEMOLOCK MED WECK FDA Start: 09-18-2019 Total cholecystectomy with exploration of common bile duct CLIP,HEMOLOCK MED WECK FDA Start: 09-18-2019 Total cholecystectomy with exploration of common bile duct CLIP,HEMOLOCK TOBIN WECK FDA Start: 09-18-2019 Total cholecystectomy with exploration of common bile duct CLIP,HEMOLOCK MED WECK FDA Start: 09-18-2019 Total cholecystectomy with exploration of common bile duct CLIP,HEMOLOCK TOBIN WECK FDA Start: 09-18-2019 Total cholecystectomy with exploration of common bile duct CLIP,HEMOLOCK TOBIN WECK FDA Start: 09-18-2019 Total cholecystectomy with exploration of common bile duct CLIP,HEMJUSTUS RUDD WECK FDA Start: 09-18-2019 Total cholecystectomy with exploration of common bile duct CLIP,HEMOLOHERBERT RUDD WECK FDA Start: 09-18-2019 Total cholecystectomy with exploration of common bile duct CLIP,HEMOLOHERBERT RUDD WECK FDA Start: 09-18-2019 Total cholecystectomy with exploration of common bile duct CLIP,HEMOLOHERBERT RUDD WECK FDA Start: 09-18-2019 Total cholecystectomy with exploration of common bile duct CLIP,HEMJUSTUS RUDD WECK FDA Start: 09-18-2019 Total cholecystectomy with exploration of common bile duct CLIP,HEMOLOHERBERT RUDD WECK FDA Start: 09-18-2019 Total cholecystectomy with exploration of common bile duct CLIP,HEMOLOHERBERT RUDD WECK FDA Start: 09-18-2019 Total cholecystectomy with exploration of common bile duct CLIP,HEMOLOHERBERT RUDD WEHERBERT FDA Start: 09-18-2019 Total cholecystectomy with exploration of common bile duct CLIP,HEMJUSTUS RUDD WEHERBERT FDA Start: 09-18-2019 Total cholecystectomy with exploration of common bile duct CLIP,HEMJUSTUS MARTINCK FDA Start: 09-18-2019 Total cholecystectomy with exploration of common bile duct CLIP,HEMJUSTUS RUDD WEHERBERT FDA Start: 09-18-2019 Total cholecystectomy with exploration of common bile duct CLIP,HEMJUSTUS RUDD WEHERBERT FDA Start: 09-18-2019 Total cholecystectomy with exploration of common bile duct CLIP,HEMJUSTUS RUDD WEHERBERT FDA Start: 09-18-2019 Total cholecystectomy with exploration of common bile duct CLIP,HEMJUSTUS RUDD WEHERBERT FDA Start: 09-18-2019 Total cholecystectomy with exploration of common bile duct CLIP,HEMJUSTUS RUDD WECK FDA Start: 09-18-2019 Total cholecystectomy with exploration of common bile duct CLIP,HEMOLOHERBERT RUDD WECK FDA Start: 09-18-2019 Total cholecystectomy with exploration of common bile duct CLIP,HEMOLOCK TOBIN WECK FDA Start: 09-18-2019 Goals Date Patient Goal Desired Activity /State Functional Status Date Assessment Result Facility 09-15-2022 Functional status Bedrest [facility] Work Phone: Mental Status Date Assessment Result Facility 08-07-2024 Cognitive function Voice/Name;Touch/Paul wahl [facility] Work Phone: 09-15-2022 Cognitive function Voice/Name [facility] Work Phone: 09-14-2022 Cognitive function Level Of Cons ciousness Awake;Alert;Appropriate;Follow s Commands [facility] Work Phone: Clinical Notes 09-14-2022 to 09-22-2024 Note Date & Type Note Facility 09-22-2024 Evaluation note Diagnosis Onset Date Resolution T12 compression fracture acute September 22, 2024 1:54pm Thoracic radiculopathy acute Fe bru2024 1:54pm Anxiety and depression chronic Ap ril 2024 1:08pm Chronic back pain chronic November 032024 1:08pm Eosinophilic esophagitis chronic November 03, 2024 1:08pm HTN (hypertension), benign chronic November 03, 2024 1:08pm Hypothyroidism chronic November 03, 2024 1:08pm Osteopenia chronic November 03 1:08pm Shortness of breath chronic November 03, 2024 1:08pm Shortness of breath chronic November 15, 2024 3:04pm Eosinophilic esophagitis chronic November 21, 2024 2:04pm T12 compression fracture acute December 15, 2024 10:28am Thoracic radiculopathy acute Ma y 2024 10:28am [facility] Work Phone: 1(462) 532-411601-22-2025 Evaluation note* Diagnosis Onset Date Resolution Status Admit Date Shortness of breath chronic ry 2024 11:10am T12 compression fracture acute September 22, 2024 1:54pm Thoracic radiculopathy acute Fe bruary 2024 1:54pm Anxiety and depression chronic Ap ril 2024 1:08pm Chronic back pain chronic November 032024 1:08pm Eosinophilic esophagitis chronic November 03, 2024 1:08pm HTN (hypertension), benign chronic November 03, 2024 1:08pm Hypothyroidism chronic November 03, 2024 1:08pm Osteopenia chronic November 03 1:08pm Shortness of breath chronic November 03, 2024 1:08pm [facility] Work Phone: 1(851) 271-606001-22-2025 Evaluation note* Diagnosis Onset Date Resolution Status Admit Date Shortness of breath chronic Janua ry 2024 11:10am T12 compression fracture acute September 22, 2024 1:54pm Thoracic radiculopathy acute Fe bruary 2024 1:54pm Anxiety and depression chronic Ap 2024 1:08pm Chronic back pain chronic November 032024 1:08pm Eosinophilic esophagitis chronic November 03, 2024 1:08pm HTN (hypertension), benign chronic November 03, 2024 1:08pm Hypothyroidism chronic November 03, 2024 1:08pm Osteopenia chronic November 03 1:08pm Shortness of breath chronic November 03, 2024 1:08pm Shortness of breath chronic November 15, 2024 3:04pm Eosinophilic esophagitis chronic November 21, 2024 2:04pm [facility] Work Phone: 1(809) 735-122201-06-2025 [facility] Medical Records Department [address] [place] [address] Discharge Summary 08/07/24 1040 MR#: [id number] Acct: [id number] Name: ALMA XIONG DANNIE Rep #: [id number] : 1950 74 From: Liam Engle MD PCP: Dr. Steve Alexandre MD Status:[facility] Location: [place] [address] Providers Primary Care Physician: Dr. Steve Alexandre MD Reason For Visit: micro direct laryngoscopy with excision of hypo ph Medications at Discharge Home Medications acetaminophen 500 mg tablet 1,000 mg PO DAILY PRN Pain 09/14/22 cholecalciferol (vitamin D3) 1,250 mcg (50,000 unit) capsule 1,250 mcg PO GARZA #20 caps 06/11/23 levothyroxine 150 mcg tablet 150 mcg PO DAILY #90 tabs 01/14/24 paroxetine HCl 40 mg tablet 40 mg PO DAILY #90 tabs 03/09/24 amitriptyline 25 mg tablet 25 mg PO QHS #90 tabs 04/20/24 indapamide 1.25 mg tablet 1.25 mg PO QAM htn #90 tabs 05/08/24 omeprazole 40 mg capsule,delayed release 40 mg PO BID gerd #60 caps 05/10/24 alendronate 70 mg tablet 70 mg PO QWEEK #12 TABLETS 05/22/24 atenolol 50 mg tablet 50 mg PO DAILY #90 tabs 06/12/24 Weight / BMI Weight Weight: 90 kg Body Mass Index (BMI) 34.0 ABG / Lab / Microbiology Data 08/07/24 09:00 Laboratory: Laboratory Results - last 24 hr 08/07/24 09:00: WBC 6.8, RBC 4.96, Hgb 13.3, Hct 40.8, MCV 82.3, MCH 26.8 L, MCHC 32.6, RDW Std Deviation 43.3, RDW Coeff of Annie 14.6, Plt Count 255, MPV 10.9 D/C Instructions Discharge Diet: Soft diet Discharge Activity: Return to Normal Activity DC O2, CPAP, BIPAP Needs Home O2 Discharge instructions: No Please Follow Up With: Liam Engle MD When: 2 weeks Meaningful Use Info Meaningful Use Meaningful Use Diagnoses (Choose all that apply): None applicable Ischemic Stroke Statin Dosing Therapy Reference: STATIN DOSE THERAPY REFERENCE: * Patients > 75 years receive moderate or high dose statin therapy. * Patients 75 years or YOUNGER should receive HIGH intensity statin dose unless contraindicated. You will be required to document reason for non-treatment if statin daily dose does not meet guidelines. HIGH DOSE STATIN THERAPY DAILY Atorvastatin > than or = to 40 mg Rosuvastatin > than or = to 20 mg Amlodipine + Atorvastatin > than or = to 2.5/40 mg Ezetimibe + Simvastatin 10/80 mg Simvastatin 80mg Discharge Plan Admission Attending Provider: Liam Engle Primary Care Provider: Steve Alexandre Instructions Print Language: Kuwaiti Discharge Orders/Prescriptions Prescriptions: No Action cholecalciferol (vitamin D3) 1,250 mcg (50,000 unit) capsule 1,250 mcg PO GARZA Qty: 20 2RF acetaminophen 500 mg Tablet 1,000 mg PO DAILY PRN (Reason: Pain) levothyroxine 150 mcg tablet 150 mcg PO DAILY Qty: 90 1RF Rx Instructions: Take extra 1/2 tablet (75 mcg) once per week paroxetine HCl 40 mg tablet 40 mg PO DAILY Qty: 90 1RF amitriptyline 25 mg tablet 25 mg PO QHS Qty: 90 1RF indapamide 1.25 mg tablet 1.25 mg PO QAM Qty: 90 1RF omeprazole 40 mg capsule,delayed release(DR/EC) 40 mg PO BID Qty: 60 2RF alendronate 70 mg tablet 70 mg PO QWEEK Qty: 12 1RF atenolol 50 mg tablet 50 mg PO DAILY Qty: 90 1RF Rx Instructions: TAKE 1 TABLET BY MOUTH DAILY FOR BLOOD PRESSURE/HEART RATE Referrals / Follow Up: Steve Alexandre MD [Primary Care Provider] - Disposition Disposition (needs filled in before D/C Order can be placed): Home, Self Care 08/07/24 1041 Cosigner Signature (if applicable): CC: Dr. Steve Alexandre MD; Dr. Liam Engle MD [facility] Instructions* Patient Instructions* Panda Mcguire II, OD - 06/21/2024 2:27 PM EST Assessment and Plan H52.223 Regular astigmatism, bilateral (primary encounter diagnosis) H52.03 Hyperopia, bilateral H52.4 Presbyopia Comment: Small shift in glasses power. Update as desired. H25.813 Combined forms of age-related cataract of both eyes Comment: Slow progression both eyes. Tolerated. Monitor. 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 Monitor yearly. H43.393 Vitreous floaters of both eyes Comment: Vitreal floaters stable both eyes. Retinas flat and intact with no apparent retinal tear or traction. Monitor yearly. I have confirmed and edited as necessary the relevant HPI, ophthalmic history, ROS, and the neuro exam findings as obtained by others. I have seen and examined Alma Xiong. I have discussed the case and the management of this patient's care with the Resident/Fellow, if applicable. I also have reviewed and agree with the assessment and plan as stated above and agree withall of its relevant components. [facility] NoteHNO ID: [id number] Author: PANDA MCGUIRE II, OD Service: ? Author Type: R AND D LAB TECHNICIAN Type: Progress Notes Filed: 06/21/2024 14:27 Note Text: Assessment and Plan H52.223 Regular astigmatism, bilateral (primary encounter diagnosis) H52.03 Hyperopia, bilateral H52.4 Presbyopia Comment: Small shift in glasses power. Update as desired. H25.813 Combined forms of age-related cataract of both eyes Comment: Slow progression both eyes. Tolerated. Monitor. 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 Monitor yearly. H43.393 Vitreous floaters of both eyes Comment: Vitreal floaters stable both eyes. Retinas flat and intact with no apparent retinal tear or traction. Monitor yearly. I have confirmed and edited as necessary the relevant HPI, ophthalmic history, ROS, and the neuro exam findings as obtained by others. I have seen and examined Alma Xiong. I have discussed the case and the management of this patient's care with the Resident/Fellow, if applicable. I also have reviewed and agree with the assessment and plan as stated above and agree with all of its relevant components.[facility] History of Present illness Narrative* Panda Mcguire II, OD - 06/21/2024 2:26 PM EST Assessment and Plan H52.223 Regular astigmatism, bilateral (primary encounter diagnosis) H52.03 Hyperopia, bilateral H52.4 Presbyopia Comment: Small shift in glasses power. Update as desired. H25.813 Combined forms of age-related cataract of both eyes Comment: Slow progression both eyes. Tolerated. Monitor. 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 Monitor yearly. H43.393 Vitreous floaters of both eyes Comment: Vitreal floaters stable both eyes. Retinas flat and intact with no apparent retinal tear or traction. Monitor yearly. I have confirmed and edited as necessary the relevant HPI, ophthalmic history, ROS, and the neuro exam findings as obtained by others. I have seen and examined Alma Xiong. I have discussed the case and the management of this patient's care with the Resident/Fellow, if applicable. I also have reviewed and agree with the assessment and plan as stated above and agree withall of its relevant components. [facility]10[facility]2024 [facility] Medical Records Department [address] [place] [address] History Physical Exam 05/04/24 1039 MR#: [id number] Acct: [id number] Name: ALMA XIONG Rep #: [id number] : 1950 74 From: Franconaresh Tam DO PCP: Dr. Steve Alexandre MD Status:[facility] Location: [place] [address] History and Physical Date of Admission: 05/04/24 ALMA XIONG, is a 74 F who presents to the office today for establishment with [facility] She has a hx of esophageal stricture, OA, vertigo, RBBB, GERD, osteopenia, hx of breast cancer, HTN and fibromyalgia. In the past patient has seen Dr. Moon for her esophageal problems and EGDs. She is aware of her prior diagnosis of EOE and tells me she had food allergen testing done previously with numerous allergens being high. She was told to take omeprazole 40 mg daily but she continues to have cough and dysphagia. She denies abdominal pain, n/v, constipation or diarrhea. Colonoscopy 2.5.20; - Hemorrhoids found on perianal exam. - Diverticulosis in the sigmoid colon and in the descending colon. Biopsied. - The examination was otherwise normal EGD 2.5.20; - Esophageal mucosal changes consistent with eosinophilic esophagitis. Biopsied distally and in mid esophagus Small hiatal hernia noted EG junction widely patent at 38cm. - Erythematous mucosa in the antrum. Biopsied. - Normal examined duodenum. Biopsied ROS Const Constitutional: Positive for fatigue and frequent falls ENT ENT: Positive for difficulty swallowing Gastro GI: Positive for bloating, heartburn and difficulty swallowing Musc Musculoskeletal: Positive for joint pain, back pain, tingling and Arthritis Neuro Neurology: Positive for frequent falls and tingling Psych Psychiatric: Positive for anxiety Endo Endocrine: Positive for fatigue Exam Const General: cooperative and comfortable Nutritional Appearance: average body habitus and well nourished HENMT Head: normal to inspection Ears: hearing grossly normal bilaterally Nose: external nose normal Face and sinus: normal facial exam Eyes General: appearance normal, both eyes and all related structures Neck Neck: normal visual inspection Chest Chest palpation inspection: normal inspection of the chest Resp Effort Inspection: able to speak in complete sentences Cardio Palpation: normal PMI GI Inspection: normal to inspection Palpation: no hepatosplenomegaly Skin General: no rashes or lesions noted Neuro General: patient alert Extrem General: normal to inspection Psych Affect: normal affect Assessment and Plan Assessment and Plan (1) Esophageal stricture: Status: Chronic Plan: Patient is here today for establishment. She has had prior EGD with Dr. Moon and Dr. Mccollum indicating eosinophilic esophagitis which was treated with omeprazole. She did have food allergen testing done in the past but we do not have these results. She continues to have cough and dysphagia. Last CBC form January 2024 was pertinent for eosinophilia. -She will be scheduled for EGD. Last EGD in 2019 indicating EOE. No indication for colonoscopy at this time -We will consider treatment with Budesonide pending results of EGD -She has been taking omeprazole 40 mg daily for a few years now. She does have osteopenia and I counseled her on side effects of prolonged use of PPI on absorption of vitamin D and calcium. She is currently on alendronate. I expressed that she should continue PPI for now and we will taper down in the future. -Will order CBC to monitor eosinophilia as well as food allergen panel (2) Eosinophilic esophagitis: Status: Chronic Orders: I have examined the patient and the H P has been reviewed. There are no clinical changes since date of exam. 05/04/24 1039 Cosigner Signature (if applicable): CC: Dr. Steve Alexandre MD; DO [facility] Yepez [facility] September 15, 2022 11:11am Note Date/Time September 15, 2022 11:11am [facility] Medical Records Department [address] [place] [address] Discharge Summary 09/15/22 1107 MR#: [id number] Acct: [id number] Name: ALMA XIONG Rep #:[id number] : 1950 72 From: Abraham Davenport PCP: Dr. Steve Alexandre MD Status:A GLADYS RANDOLPH Location: [place] [address] Providers Date of Admission: 09/14/22 Date of Discharge: 09/15/22 Primary Care Physician: Dr. Steve Alexandre MD Reason For Visit: DIZZINESS, NEAR SYNCOPE Diagnosis Discharge Diagnosis (1) Dizziness: Status: Acute Code(s): R42 - Dizziness and giddiness (2) Dysequilibrium: Status: Acute Code(s): R42 - Dizziness and giddiness Plan This is 72-year-old female with history of chronic dizziness and vertigo admitted for dizziness, loss of balance, and disequilibrium 1. Acute on chronic dizziness, loss of equilibrium, rule out TIA/stroke: Patient is being admitted in PCU. Stroke order set with MRI brain ordered. Orthostatic test was negative. If MRI shows positive stroke we will do echo. BP and glucose monitoring as per stroke guidelines. PT OT and speech evaluationordered. NIHSS monitoring. Dizziness is better. 09/15: Dizziness has improved. Dexamethasone 4 mg IV 1 dose. Fasting profile within normal limit. MRI brain negative for acute stroke. Patient had partial response to Antivert in the past therefore prescription for Antivert given. Mild hypokalemia, potassium replaced. TSH normal. Orthostatic negative 2. Hypertension: Blood pressure is in normal range. Patient on atenolol, and indapamide continue home antihypertensive medications. 3 hypothyroidism: Continue levothyroxine. TSH normal 4 history of breast cancer: Status post lumpectomy, stable, in remission. 5 depression: Patient on Paxil and amitriptyline, low-dose. 6 Bilateral knee arthritis with muscle spasm: Patient on baclofen, dose decreased to 5 mg 3 times daily as needed for spasm. DVT prophylaxis: Subcu Lovenox. Living will/advanced directive/end of life care: Patient does not have living will or advanced directive. After discussion of benefits/risks procedures involved with full code, DNR CC arrest and DNR CC, the patient and her opted for full code. Patient does want artificial life support including intubation, tube feed, ventilator and/chest compression, central venous catheter, vasopressor and DC shock if needed Discharge medication reconciliation done. Discharge follow-up instructions completed. Discharge process discussed with the patient and all questions wereanswered to patient's satisfaction. Total time spent, exact 35 minutes on discharge meds reconciliation, examination, coordination of care with nurses and ancillary staff, review of imaging and blood test and discussion with the patient on follow-up instructions. Medications at Discharge Home Medications omeprazole 40 mg capsule,delayed release 40 mg PO 1700 gerd #90 caps 01/01/22 paroxetine HCl 40 mg tablet 40 mg PO DAILY #90 tabs 01/01/22 amitriptyline 25 mg tablet 25 mg PO QHS #90 tabs 03/31/22 indapamide 1.25 mg tablet 1.25 mg PO QAM htn #90 tabs 03/31/22 baclofen 10 mg tablet 10 mg PO TID PRN muscle spasm #90 tabs 04/08/22 atenolol 50 mg tablet 50 mg PO DAILY heart rate/Bp #90 tabs 04/30/22 levothyroxine 150 mcg tablet 150 mcg PO DAILY #90 tabs 08/04/22 acetaminophen 500 mg tablet 1,000 mg PO DAILY PRN Pain 09/14/22 alendronate 70 mg tablet (Fosamax) 70 mg PO GARZA 09/14/22 cholecalciferol (vitamin D3) 1,250 mcg (50,000 unit) capsule 1,250 mcg PO GARZA 09/14/22 meclizine 12.5 mg tablet 12.5 mg PO 4X/DAY PRN PRN DIZZINESS/VERTIGO #30 tabs 09/15/22 Physical Exam Narrative Seen and examined. Patient was very wobbly, dyslipidemia and dizziness yesterday and required 2 people assist. She feels much better today. She has history of dizziness for 2to 3 years. Denies vertigo. Acute stroke ruled out. General: Alert, Oriented x3, Cooperative, BMI 33.2 kg/m?, obesity grade 1 HEENT: Hallpike test negative, atraumatic, PERRLA, EOMI. No tenderness over external ear or mastoid process. Oral: Oral mucosa moist. No Gingival or Mucosal Lesions/ Ulcerations Neck: Supple, No JVD, Negative Carotid Bruits Lungs: Air entry diminished in bilateral lung bases. No crepitation/rhonchi Cardiovascular: Regular rate, Regular Rhythm, Normal S1, Normal S2, No murmurs Abdomen: Bowel Sounds Present, Soft, Non Tender, Non-Distended : No renal angle tenderness. No suprapubic tenderness. Extremities: No edema, Capillary Refill Less than 3 Seconds Skin: No rashes, No breakdown Musculoskeletal: Bilateral knee arthritis. No Tenderness to Palpation of Jointsor Extremities, muscle strength 5/5 at major joints. Neurological: Cranial nerves II-XII grossly intact, DTR 2+/4, heel gibson and finger-nose test normal. NIH stroke scale 0. Psych/Mental Status: Normal Affect, Appropriate. Weight / BMI Weight Weight: 187 lb 2.759 oz Body Mass Index (BMI) 33.1 ABG / Lab / Microbiology Data Result Diagrams: 09/15/22 05:56 09/15/22 05:56 Laboratory: Laboratory Results - last 24 hr 09/14/22 10:15: PT 15.4 H, INR 1.3, APTT 27.8 09/14/22 10:15: Magnesium 2.4 09/15/22 05:56: WBC 5.3, RBC 4.79, Hgb 12.8, Hct 39.7, MCV 82.9, MCH 26.7 L, MCHC 32.2, RDW Std Deviation 44.2 H, RDW Coeff of Annie 14.6, Plt Count 231, MPV 11.0, Immature Gran % (Auto) 0.400, Neut % (Auto) 55.0, Lymph % (Auto) 32.1, Bland % (Auto) 8.3, Eos % (Auto) 3.8, Baso % (Auto) 0.4, Absolute Neuts (auto) 2.9, Absolute Lymphs (auto) 1.70, Nucleated RBC % 0 09/15/22 05:56: Sodium 140, Potassium 3.4 L, Chloride 105, Carbon Dioxide 28.0, Anion Gap 7, BUN 14, Creatinine 0.93, Estim Creat Clear Calc 46.56, Est GFR (MDRD) Af Amer 77, Est GFR (MDRD) Non-Af 63, BUN/Creatinine Ratio 15.0, Glucose 114 H, Calcium 8.9, Triglycerides 134, Cholesterol 148, LDL Cholesterol 85, VLDLCholesterol 27, HDL Cholesterol 36 L, TSH 1.52 Radiography Diagnostic Testing: Radiology Impression Brain CT 09/14/22 10:19 IMPRESSION: Chronic involutional changes of the brain. N.B. : The above Results were Read Back by Octavio Aviles MD to Dr Elsi MD, and understanding confirmed on 09/14/2022 10:30:39 (ET). Electronically Signed: Octavio Aviles MD at 10:31 EST , Chest X-Ray 09/14/22 10:19 IMPRESSION: No acute abnormalities present. Electronically Signed: Octavio Aviles MD at 11:56 EST Reading Location ID and State: [address] [place] [address] , Service support , Head/Neck CTA 09/14/22 10:19 IMPRESSION: Minimal calcific plaque seen at the origin of the right internal carotid artery. Small left vertebral artery. Electronically Signed: Octavio Aviles MD at 11:05 EST Reading Location ID and State: [address] [place] [address] , Service support , ADDENDUM: 09/14/22 1118 IMPRESSION: Minimal calcific plaque seen at the origin of the right internal carotid artery. Small left vertebral artery. N.B. : The above Results were Read Back by Octavio Aviles MD to Dr Elsi MD, and understanding confirmed on 09/14/2022 11:11:43 (ET). Electronically Signed: Octavio Aviles MD at 11:05 EST Reading Location ID and State: [address] [place] [address] , Service support , Brain MRI 09/14/22 18:35 IMPRESSION: No acute intracranial abnormality. No evidence of acute CVA. Minimal chronic changes. Electronically Signed: Arcelia Wu MD at 22:08 EST , D/C Instructions Discharge Diet: No restrictions Weight Bearing Status: Weight bearing as tolerated Call your doctor if you observe: Fever of 101 or Higher, Coldness, Increased Pain, Numbness or Tingling, Change in Color, Inability to urinate, Inability to have a bowel movement, Using more than 1 pad per hour, Shortness of breath, Dizziness, Fainting spells, Swelling in the ankles, Chest pain, Prolonged hiccupping, Increased palpitations (irregular heartbeat) and Calf discomfort When: IN 2 WEEKS Meaningful Use Info Meaningful Use Diagnoses (Choose all that apply): None applicable Discharge Plan Admission Admit Date/Time: 09/14/22 11:29 Primary Reason for Your Visit: Dizziness, gait Disequilibrium Attending Provider: Abraham Yepez Primary Care Provider: Steve Alexandre Discharge Orders/Prescriptions Prescriptions: New meclizine 12.5 mg Tablet 12.5 mg PO 4X/DAY PRN PRN (Reason: DIZZINESS/VERTIGO) Qty: 30 0RF Continued omeprazole 40 mg capsule,delayed release(DR/EC) 40 mg PO 1700 Qty: 90 3RF paroxetine HCl 40 mg tablet 40 mg PO DAILY Qty: 90 3RF baclofen 10 mg tablet 10 mg PO TID PRN (Reason: muscle spasm) Qty: 90 2RF alendronate [Fosamax] 70 mg tablet 70 mg PO GARZA cholecalciferol (vitamin D3) 1,250 mcg (50,000 unit) capsule 1,250 mcg PO GARZA acetaminophen 500 mg Tablet 1,000 mg PO DAILY PRN (Reason: Pain) indapamide 1.25 mg tablet 1.25 mg PO QAM Qty: 90 1RF amitriptyline 25 mg tablet 25 mg PO QHS Qty: 90 1RF atenolol 50 mg tablet 50 mg PO DAILY Qty: 90 1RF levothyroxine 150 mcg tablet 150 mcg PO DAILY Qty: 90 1RF Referrals / Follow Up: Steve Alexandre MD [Primary Care Provider] - Liam Engle MD [Med Staff - Active Staff] - Within 2 Weeks (dizziness/vestibular dysfunction) Disposition Disposition (needs filled in before D/C Order can be placed): Home, Self Care Charges/Coding Visit Charges Inpatient E&M: 71327 Disch Hosp >30min 09/15/22 1111 <Electronically signed by Abraham Yepez MD> Cosigner Signature (if applicable): CC: Dr. Steve Alexandre MD; Dr. Abraham Yepez MD~ Signed [facility] Work Phone: 1(591) 330-943002-14-[address] Yepez [facility] September 15, 2022 11:06am Note Date/Time September 15, 2022 11:03am [facility] Medical Records Department [address] [place] [place] [address] Instructions for Home/Discharge Instructions 09/15/22 1001 MR#: [id number] Acct: [id number] Name: ALMA XIONG Rep #:[id number] : 1950 72 From: Abraham Davenport PCP: Dr. Steve Alexandre MD Status:A DM RANDOLPH Discharge Instructions Diet Discharge Diet: No restrictions Activity Discharge Activity: Return to Normal Activity Weight Bearing Status: Weight bearing as tolerated Dressing / Incision Call your doctor if you observe: Fever of 101 or Higher, Coldness, Increased Pain, Numbness or Tingling, Change in Color, Inability to urinate, Inability to have a bowel movement, Using more than 1 pad per hour, Shortness of breath, Dizziness, Fainting spells, Swelling in the ankles, Chest pain, Prolonged hiccupping, Increased palpitations (irregular heartbeat) and Calf discomfort Follow Up Care When: IN 2 WEEKS Test Results: Test results from this visit will be discussed in further detail at your follow- up appointment, if applicable. Discharge Plan Admission Admit Date/Time: 09/14/22 11:29 Primary Reason for Your Visit: Dizziness, gait Disequilibrium Attending Provider: Abraham Yepez Primary Care Provider: Steve Alexandre Discharge Orders/Prescriptions Prescriptions: New meclizine 12.5 mg Tablet 12.5 mg PO 4X/DAY PRN PRN (Reason: DIZZINESS/VERTIGO) Qty: 30 0RF Continued omeprazole 40 mg capsule,delayed release(DR/EC) 40 mg PO 1700 Qty: 90 3RF paroxetine HCl 40 mg tablet 40 mg PO DAILY Qty: 90 3RF baclofen 10 mg tablet 10 mg PO TID PRN (Reason: muscle spasm) Qty: 90 2RF alendronate [Fosamax] 70 mg tablet 70 mg PO GARZA cholecalciferol (vitamin D3) 1,250 mcg (50,000 unit) capsule 1,250 mcg PO GARZA acetaminophen 500 mg Tablet 1,000 mg PO DAILY PRN (Reason: Pain) indapamide 1.25 mg tablet 1.25 mg PO QAM Qty: 90 1RF amitriptyline 25 mg tablet 25 mg PO QHS Qty: 90 1RF atenolol 50 mg tablet 50 mg PO DAILY Qty: 90 1RF levothyroxine 150 mcg tablet 150 mcg PO DAILY Qty: 90 1RF Referrals / Follow Up: Steve Alexandre MD [Primary Care Provider] - Liam Engle MD [Med Staff - Active Staff] - Within 2 Weeks (dizziness/vestibular dysfunction) Disposition Disposition (needs filled in before D/C Order can be placed): Home, Self Care 09/15/22 1106<Electronically signed by Abraham Yepez MD>Abraham Yepez MD CC: Dr. Steve Alexandre MD ~ Signed [facility] Work Phone: [phone]) 363-333802-13-[address] Alberts [facility] September 14, 2022 4:13pm Note Date/Time September 14, 2022 10:24am [facility] Medical Records Department [address] [place] [address] Emergency Department Summary 09/14/22 MR#: [id number] Acct: [id number] Name: ALMA XIONG Rep #:[id number] : 1950 72 From: Km Alberts DO PCP: Dr. Steve Alexandre MD Status:A DM RANDOLPH Location: [place] [address] HPI History of Present Illness Chief Complaint: Dizziness Detail of Chief Complaint: Dizziness and feeling off balance Informant: patient Narrative Narrative: Patient presents to the emergency department complaint of feeling off balance that she noticed this morning when she woke up. Patient states that she felt somewhat woozy when she first woke up around 8:30 AM. She got up to use the restroom and felt very off balance and like she was going to fall. She denies vertiginous symptoms of a spinning sensation. Patient also states that she think she woke up in the middle the night at some point and did not feel well but just went back to bed. Last known well was before going to bed last evening. Patient does have a slight fullness in her head. She states that she hit her head about a week ago on the garage door but had no loss of consciousness. Patient has history of vertigo but states this feels very different. She does have history of hypertension for which she does take blood pressure medication. Patient also with history of hypothyroidism. Patient denies recent illness. Prior similar symptoms: No PFSH PFSH Medical History (Updated 09/14/22 @ 11:[address] Km Alberts, DO) Abnormal ECG Anxiety and depression Chest pain Cholelithiasis with chronic cholecystitis Chronic back pain Chronic neck pain Compression fracture of body of thoracic vertebra Depression Eosinophilic esophagitis Fibromyalgia GERD (gastroesophageal reflux disease) Health care maintenance History of breast cancer HTN (hypertension), benign Hypersomnia Hypothyroidism Lumbar radiculopathy Occipital neuralgia Osteopenia Preop cardiovascular exam Vitamin D deficiency Home Medications omeprazole 40 mg capsule,delayed release 40 mg PO 1700 gerd #90 caps 01/01/22 [Rx Last Taken Unknown] paroxetine HCl 40 mg tablet 40 mg PO DAILY #90 tabs 01/01/22 [Rx Last Taken 09/13/22] amitriptyline 25 mg tablet 25 mg PO QHS #90 tabs 03/31/22 [Rx Last Taken 09/13/22] indapamide 1.25 mg tablet 1.25 mg PO QAM htn #90 tabs 03/31/22 [Rx Last Taken 09/13/22] baclofen 10 mg tablet 10 mg PO TID PRN muscle spasm #90 tabs 04/08/22 [Rx Last Taken Unknown] atenolol 50 mg tablet 50 mg PO DAILY heart rate/Bp #90 tabs 04/30/22 [Rx Last Taken 09/13/22] levothyroxine 150 mcg tablet 150 mcg PO DAILY #90 tabs 08/04/22 [Rx Last Taken 09/13/22] acetaminophen 500 mg tablet 1,000 mg PO DAILY PRN Pain 09/14/22 [History Last Taken Unknown] alendronate 70 mg tablet (Fosamax) 70 mg PO GARZA 09/14/22 [History Last Taken 08/30/22] cholecalciferol (vitamin D3) 1,250 mcg (50,000 unit) capsule 1,250 mcg PO GARZA 09/14/22 [History Last Taken 08/30/22] Allergy/AdvReac Type Severity Reaction Status Date / Time ciprofloxacin [From Cipro] Allergy Intermediate hives Verified 09/14/22 10:02 milk [dairy] Allergy Food Verified 09/14/22 10:02 Allergy Family History Mother Breast cancer Father Cancer Bone and Bladder CA Alcoholism Grandmother Heart disease CVA (cerebral vascular accident) Sister Heart disease Cancer lung COPD (chronic obstructive pulmonary disease) Multiple sclerosis Brother Alcoholism Other Hypertension Surgical History History of arthroscopic knee surgery History of History of fusion of cervical spine Hx of cholecystectomy Status post breast lumpectomy Social History Smoking Status: Former smoker quit date: 08/02/77 Tobacco: How many years used: 5 second hand exposure: No alcohol intake: current alcohol intake frequency: a few times a month substance use type: does not use what type of physical activity do you participate in: none ROS ROS ED Review of Systems ROS Unobtainable: other Constitutional Constitutional ED: Reports lethargy; Denies chills, fever(s), sweats or weight loss Eyes Eyes: Denies blurry vision, change in vision or diplopia ENT ENT ED: Denies rhinorrhea or sore throat Cardiovascular Cardiovascular: Denies chest pain, orthopnea or racing heartbeat Respiratory/Chest Respiratory/Chest: Denies cough, dyspnea, dyspnea on exertion, orthopnea or sputum Gastrointestinal Gastrointestinal: Denies abdominal pain, diarrhea, nausea or vomiting Genitourinary Genitourinary ED: Denies dysuria, hematuria or urinary frequency Musculoskeletal Musculoskeletal: Denies arthralgias, back pain, myalgias or neck pain Integumentary Denies abscess, Abrasions or rash Neurologic Neurologic: Reports other Details: Dizziness and feeling off balance ; Denies headache(s) or weakness Psychiatric Psychiatric: Denies anxiety, depression or suicidal thoughts Endocrine Endocrinology: Denies polydipsia, polyphagia or polyuria Hematologic/Lymphatic Hematologic/Lymphatic: Denies easy bleeding, easy bruising or lymphadenopathy Allergic/Immunologic Allergic/Immunologic ED: Denies mouth swelling, tongue swelling or urticaria EXAM Physical Exam Const Vital Signs: 09/14/22 10:03 09/14/22 10:12 09/14/22 10:29 Temperature 97.7 F L Temperature Source Temporal Pulse Rate 77 Pulse Rate [Lying] Pulse Rate [Sitting (for 1 minute prior to obtaining)] Pulse Rate [Standing (for 1 minute prior to obtaining)] Respiratory Rate 18 Respiratory Effort Normal Non-Labored Respiratory Pattern Normal Blood Pressure 116/63 Blood Pressure [Lying] Blood Pressure [Sitting (for 1 minute prior to obtaining)] Blood Pressure [Standing (for 1 minute prior to obtaining)] Blood Pressure Mean 80 Blood Pressure Mean [Lying] Blood Pressure Mean [Sitting (for 1 minute prior to obtaining)] Blood Pressure Mean [Standing (for 1 minute prior to obtaining)] Pulse Ox 98 98 Oxygen Delivery Method Room Air Room Air 09/14/22 10:29 09/14/22 11:00 09/14/22 11:18 Temperature Temperature Source Pulse Rate 89 76 Pulse Rate [Lying] 73 Pulse Rate [Sitting (for 1 minute prior to obtaining)] 80 Pulse Rate [Standing (for 1 minute prior to obtaining)] 88 Respiratory Rate 16 17 Respiratory Effort Respiratory Pattern Blood Pressure 135/62 H 124/68 H Blood Pressure [Lying] 119/63 Blood Pressure [Sitting (for 1 minute prior to obtaining)] 119/75 Blood Pressure [Standing (for 1 minute prior to obtaining)] 118/66 Blood Pressure Mean 86 86 Blood Pressure Mean [Lying] 81 Blood Pressure Mean [Sitting (for 1 minute prior to obtaining)] 89 Blood Pressure Mean [Standing (for 1 minute prior to obtaining)] 83 Pulse Ox 98 98 Oxygen Delivery Method Room Air Room Air Positive well nourished and well developed General Appearance ED: well developed and NAD HEENT Reports TM's clear and moist mucous membranes normocephalic and atraumatic; Negative for trauma or tenderness Tympanic Membrane ED: Yes TM's clear Eyes PERRL and EOMs intact bilaterally General Eye ED: Negative for pale conjunctiva or scleral icterus Neck no lymphadenopathy, supple and no JVD General: Negative for tenderness Chest Wall inspection of chest normal and palpation of chest normal Chest: Negative for tenderness Resp normal respiratory effort and clear to auscultation bilaterally Effort and Inspection: Negative for respiratory distress or pain with movement Auscultation: Negative for rhonchi, wheezes or diminished lung sounds Cardio regular rate, regular rhythm, S1 normal heart sound, S2 normal heart sound and no murmurs Peripheral Pulses: pulses 2+ throughout GI normal to inspection, nondistended, normoactive bowel sounds, soft to palpation,non-tender, non-distended and no masses Back/Spine no CVA tenderness and no thoracic nor lumbar tenderness Extremity normal to inspection General Extremety ED: Negative for edema General Extremity: Negative for edema Neuro oriented x3, CN's II-XII intact bilaterally, no sensory deficits noted and gait normal Neuro Narrative: Finger-nose and heel gibson testing within normal limits, negative Romberg, negative pronator drift, fundi benign Sensorium / Orientation: awake, alert, oriented to person, oriented to place andoriented to time Motor Exam: strength 5/5 throughout and strength abnormal Psych mental status grossly normal Skin no rashes or lesions noted and no wounds MDM MDM MDM Narrative Medical decision making narrative: Patient presents with dizziness with symptoms that are relieved if started in the middle the night. There is no nystagmus on her exam and she states this is different than her vertigo that she has had in the past. Patient describes a sensation of falling and feeling off balance. No other focal deficits noted on initial exam however was concerned about possibility of stroke therefore stroke team was called. Patient had a normal CT scan of the brain as well as CTA of head and neck. She was evaluated by stroke neurologist who agrees patient not thrombolytic candidate and recommended admission for further work-up of her dizziness. Chemistries unremarkable. CBC with differential unremarkable. EKG showed a sinus rhythm with a rate of 73 bpm with a right bundle branch block andher troponin was normal. Chest x-ray unremarkable. I did order orthostatics which are pending. Also ordered a milligram of Ativan IV to see if this will help improve her symptoms. This time etiology of her dizziness is unclear. We will discussed with hospitalist to evaluate patient for admission. In the differential would be central vertigo versus peripheral vertigo versus stroke. Lab Data Attestation: I reviewed the patient's lab results. Labs: Laboratory Results - last 24 hr 09/14/22 09/14/22 09/14/22 10:15 10:15 10:15 WBC 4.7 RBC 5.04 Hgb 14.0 Hct 41.6 MCV 82.5 MCH 27.8 MCHC 33.7 RDW Std Deviation 42.7 RDW Coeff of Annie 14.4 Plt Count 214 MPV 10.7 Immature Gran % (Auto) 0.600 Neut % (Auto) 53.3 Lymph % (Auto) 33.1 Bland % (Auto) 6.8 Eos % (Auto) 5.8 H Baso % (Auto) 0.4 Absolute Neuts (auto) 2.5 Absolute Lymphs (auto) 1.55 Nucleated RBC % 0 PT 15.4 H INR 1.3 APTT 27.8 Sodium 140 Potassium 3.7 Chloride 105 Carbon Dioxide 30.0 Anion Gap 5 BUN 16 Creatinine 0.97 Estim Creat Clear Calc 50.52 Est GFR (MDRD) Af Amer 73 Est GFR (MDRD) Non-Af 60 BUN/Creatinine Ratio 16.5 Glucose 115 H Calcium 9.1 Troponin I High Sens 4 Radiography Diagnostic Testing: Clinical Impression(s) from Imaging Studies Head/Neck CTA 09/14/22 10:19 IMPRESSION: Minimal calcific plaque seen at the origin of the right internal carotid artery. Small left vertebral artery. Electronically Signed: Octavio Aviles MD at 11:05 EST , ADDENDUM: 09/14/22 1118 IMPRESSION: Minimal calcific plaque seen at the origin of the right internal carotid artery. Small left vertebral artery. N.B. : The above Results were Read Back by Octavio Aviels MD to Dr Elsi MD, and understanding confirmed on 09/14/2022 11:11:43 (ET). Electronically Signed: Octavio Aviles MD at 11:05 EST , 1 view chest x-ray obtained interpreted by myself as no acute disease process without evidence of infiltrate or pneumothorax. Official report from radiology pending. EKG Initial EKG: Attestation: I personally reviewed and interpreted this EKG as follows: Comments: Sinus rhythm with a rate of 78 bpm with a right bundle branch block Prior EKG tracings: available for review Prior: Changed Discharge Plan Dx/Rx/DC Orders Clinical Impression: Dizziness, Dysequilibrium, History of hypertension, Right bundle branch block Disposition Disposition: Acute Care Hospital [facility] What to do if you have Problems For any increased pain, shortness of breath, bleeding, nausea or vomiting, chestpain, or any unexpected problems, contact your Primary Care Provider. Call [facility] ([phone]) or report to the closest Emergency Room. Call 911 if necessary. 09/14/22 1613 <Electronically signed by Km Alberts DO> Cosigner Signature (if applicable): CC: Dr. Steve Alexandre MD ~ Signed [facility] Work Phone: [phone]) 806-863902-13-2023 History and physical note Author Dr. Yepez [facility] September 14, 2022 3:44pm Note Date/Time September 14, 2022 11:38am [facility] Medical Records Department [address] [place] [address] H&P Exam - Hospitalist 09/14/22 1137 MR#: [id number] Acct: [id number] Name: ALMA XIONG Rep #:[id number] : 1950 72 From: Abraham Davenport PCP: Dr. Steve Alexandre MD Status:A DM [facility] Location: [place] [address] HPI - General General Date of Admission: 09/14/22 Date of Service: 09/14/22 Chief Complaint: Dizziness, loss of balance, unsteady today HPI Narrative ALMA XIONG, is a 72 F was brought by EMS for dizziness, lightheadedness, unsteady, could not stand up or walk when she woke up today. She denies any one- sided weakness, numbness, tingling, loss of his speech or language deficit, dysarthria, dysphagia, loss of vision/hemianopia or quadrantanopia or confusion or loss of consciousness. She had a fall about a week ago and hit her head after she missed the step and did not see the step. It was not because of dizziness or vertigo at that time. Patient has history of vertigo for last few years and is taking Antivert. Today she denies vertigo. Denies fever or chill, lower urinary tract symptoms, vomiting or GI bleed. Has mild dizziness. In ED, twelve-lead EKG shows normal sinus rhythm, RBBB, LAD, LAFB at 78. On, QTc 506 ms. Previous EKG Was similar sinus rhythm. Chest x-ray no acute abnormality. She had stroke alert called and teleneurologist was consulted. CTA head and neck shows minimal calcific plaque at origin of right ICA. Small left vertebral artery. [facility] teleneurologist saw the patient. LKW last night. Recommended admission. [facility] Medical History (Updated 09/14/22 @ 11:[address] Km Alberts, ) Abnormal ECG Anxiety and depression Chest pain Cholelithiasis with chronic cholecystitis Chronic back pain Chronic neck pain Compression fracture of body of thoracic vertebra Depression Eosinophilic esophagitis Fibromyalgia GERD (gastroesophageal reflux disease) Health care maintenance History of breast cancer HTN (hypertension), benign Hypersomnia Hypothyroidism Lumbar radiculopathy Occipital neuralgia Osteopenia Preop cardiovascular exam Vitamin D deficiency Home Medications omeprazole 40 mg capsule,delayed release 40 mg PO 1700 gerd #90 caps 01/01/22 [Rx Last Taken Unknown] paroxetine HCl 40 mg tablet 40 mg PO DAILY #90 tabs 01/01/22 [Rx Last Taken 09/13/22] amitriptyline 25 mg tablet 25 mg PO QHS #90 tabs 03/31/22 [Rx Last Taken 09/13/22] indapamide 1.25 mg tablet 1.25 mg PO QAM htn #90 tabs 03/31/22 [Rx Last Taken 09/13/22] baclofen 10 mg tablet 10 mg PO TID PRN muscle spasm #90 tabs 04/08/22 [Rx Last Taken Unknown] atenolol 50 mg tablet 50 mg PO DAILY heart rate/Bp #90 tabs 04/30/22 [Rx Last Taken 09/13/22] levothyroxine 150 mcg tablet 150 mcg PO DAILY #90 tabs 08/04/22 [Rx Last Taken 09/13/22] acetaminophen 500 mg tablet 1,000 mg PO DAILY PRN Pain 09/14/22 [History Last Taken Unknown] alendronate 70 mg tablet (Fosamax) 70 mg PO GARZA 09/14/22 [History Last Taken 08/30/22] cholecalciferol (vitamin D3) 1,250 mcg (50,000 unit) capsule 1,250 mcg PO GARZA 09/14/22 [History Last Taken 08/30/22] Allergy/AdvReac Type Severity Reaction Status Date / Time ciprofloxacin [From Cipro] Allergy Intermediate hives Verified 09/14/22 10:02 milk [dairy] Allergy Food Verified 09/14/22 10:02 Allergy Family History Mother Breast cancer Father Cancer Bone and Bladder CA Alcoholism Grandmother Heart disease CVA (cerebral vascular accident) Sister Heart disease Cancer lung COPD (chronic obstructive pulmonary disease) Multiple sclerosis Brother Alcoholism Other Hypertension Surgical History History of arthroscopic knee surgery History of History of fusion of cervical spine Hx of cholecystectomy Status post breast lumpectomy Social History Smoking Status: Former smoker quit date: 08/02/77 Tobacco: How many years used: 5 second hand exposure: No alcohol intake: current alcohol intake frequency: a few times a month substance use type: does not use what type of physical activity do you participate in: none ROS ROS Narrative 14 system ROS reviewed. Constitutional: Reports fatigue, dizziness as described in HPI. No fever. HEENT: Has not seen ENT doctor in past. Chronic dizziness and vertigo. Reports systems reviewed and no addt'l complaints, except as documented Respiratory/Chest: Denies chest pain, shortness of breath at rest or with exertion Gastrointestinal: Denies coffee ground emesis, hematemesis or vomiting Genitourinary: Denies burning urination or new urinary tract symptoms Musculoskeletal: Chronic bilateral knee arthritis right worse than left, complain of sometimes locking, stiffness. Neurologic: Denies seizure-like activity. Rest as described in HPI skin: No ulcer. No rash Endocrinology: Reports systems reviewed and no addt'l complaints, except as documented Hematologic/Lymphatic: Reports systems reviewed and no addt'l complaints, except as documented Rest 14 ROS are negative except as mentioned in HPI Vital Signs Vital Signs Vital Signs: 09/14/22 10:03 09/14/22 10:12 09/14/22 10:29 Temperature 97.7 F L Temperature Source Temporal Pulse Rate 77 Pulse Rate [Lying] Pulse Rate [Sitting (for 1 minute prior to obtaining)] Pulse Rate [Standing (for 1 minute prior to obtaining)] Respiratory Rate 18 Respiratory Effort Normal Non-Labored Respiratory Pattern Normal Blood Pressure 116/63 Blood Pressure [Lying] Blood Pressure [Sitting (for 1 minute prior to obtaining)] Blood Pressure [Standing (for 1 minute prior to obtaining)] Blood Pressure Mean 80 Blood Pressure Mean [Lying] Blood Pressure Mean [Sitting (for 1 minute prior to obtaining)] Blood Pressure Mean [Standing (for 1 minute prior to obtaining)] Pulse Ox 98 98 Oxygen Delivery Method Room Air Room Air 09/14/22 10:29 09/14/22 11:00 09/14/22 11:18 Temperature Temperature Source Pulse Rate 89 76 Pulse Rate [Lying] 73 Pulse Rate [Sitting (for 1 minute prior to obtaining)] 80 Pulse Rate [Standing (for 1 minute prior to obtaining)] 88 Respiratory Rate 16 17 Respiratory Effort Respiratory Pattern Blood Pressure 135/62 H 124/68 H Blood Pressure [Lying] 119/63 Blood Pressure [Sitting (for 1 minute prior to obtaining)] 119/75 Blood Pressure [Standing (for 1 minute prior to obtaining)] 118/66 Blood Pressure Mean 86 86 Blood Pressure Mean [Lying] 81 Blood Pressure Mean [Sitting (for 1 minute prior to obtaining)] 89 Blood Pressure Mean [Standing (for 1 minute prior to obtaining)] 83 Pulse Ox 98 98 Oxygen Delivery Method Room Air Room Air Weight Weight: 192 lb 10.944 oz Body Mass Index (BMI) 31.1 Physical Exam Narrative General: Alert, Oriented x3, Cooperative, BMI 33.2 kg/m?, obesity grade 1 HEENT: Hallpike test negative, atraumatic, PERRLA, EOMI. No tenderness over external ear or mastoid process. Oral: Oral mucosa moist. No Gingival or Mucosal Lesions/ Ulcerations Neck: Supple, No JVD, Negative Carotid Bruits Lungs: Air entry diminished in bilateral lung bases. No crepitation/rhonchi Cardiovascular: Regular rate, Regular Rhythm, Normal S1, Normal S2, No murmurs Abdomen: Bowel Sounds Present, Soft, Non Tender, Non-Distended : No renal angle tenderness. No suprapubic tenderness. Extremities: No edema, Capillary Refill Less than 3 Seconds Skin: No rashes, No breakdown Musculoskeletal: Bilateral knee arthritis. No Tenderness to Palpation of Jointsor Extremities, muscle strength 5/5 at major joints. Neurological: Cranial nerves II-XII grossly intact, DTR 2+/4, heel gibson and finger-nose test normal. NIH stroke scale 0. Psych/Mental Status: Normal Affect, Appropriate. Results Lab / Micro Data Result Diagrams: 09/14/22 10:15 09/14/22 10:15 Labs: Laboratory Results - last 24 hr 09/14/22 10:15: WBC 4.7, RBC 5.04, Hgb 14.0, Hct 41.6, MCV 82.5, MCH 27.8, MCHC 33.7, RDW Std Deviation 42.7, RDW Coeff of Annie 14.4, Plt Count 214, MPV 10.7, Immature Gran % (Auto) 0.600, Neut % (Auto) 53.3, Lymph % (Auto) 33.1, Bland % (Auto) 6.8, Eos % (Auto) 5.8 H, Baso % (Auto) 0.4, Absolute Neuts (auto) 2.5, Absolute Lymphs (auto) 1.55, Nucleated RBC % 0 09/14/22 10:15: PT 15.4 H, INR 1.3, APTT 27.8 09/14/22 10:15: Sodium 140, Potassium 3.7, Chloride 105, Carbon Dioxide 30.0, Anion Gap 5, BUN 16, Creatinine 0.97, Estim Creat Clear Calc 50.52, Est GFR (MDRD) Af Amer 73, Est GFR (MDRD) Non-Af 60, BUN/Creatinine Ratio 16.5, Glucose 115 H, Calcium 9.1, Troponin I High Sens 4 Radiology Impression Head/Neck CTA 09/14/22 10:19 IMPRESSION: Minimal calcific plaque seen at the origin of the right internal carotid artery. Small left vertebral artery. Electronically Signed: Octavio Aviles MD at 11:05 EST , ADDENDUM: 09/14/22 1118 IMPRESSION: Minimal calcific plaque seen at the origin of the right internal carotid artery. Small left vertebral artery. N.B. : The above Results were Read Back by Octavio Aviles MD to Dr Elsi MD, and understanding confirmed on 09/14/2022 11:11:43 (ET). Electronically Signed: Octavio Aviles MD at 11:05 EST , Assessment & Plan Assessment/Plan (1) Dizziness: (2) Dysequilibrium: PLAN: Plan This is 72-year-old female with history of chronic dizziness and vertigo admitted for dizziness, loss of balance, and disequilibrium 1. Acute on chronic dizziness, loss of equilibrium, rule out TIA/stroke: Patient is being admitted in PCU. Stroke order set with MRI brain ordered. Orthostatic test was negative. If MRI shows positive stroke we will do echo. BP and glucose monitoring as per stroke guidelines. PT OT and speech evaluationordered. NIHSS monitoring. Dizziness is better. 2. Hypertension: Blood pressure is in normal range. Patient on atenolol, and indapamide continue home antihypertensive medications. 3 hypothyroidism: Continue levothyroxine. TSH ordered for tomorrow a.m. 4 history of breast cancer: Status post lumpectomy, stable, in remission. 5 depression: Patient on Paxil and amitriptyline, low-dose. 6 Bilateral knee arthritis with muscle spasm: Patient on baclofen, dose decreased to 5 mg 3 times daily as needed for spasm. DVT prophylaxis: Subcu Lovenox. Living will/advanced directive/end of life care: Patient does not have living will or advanced directive. After discussion of benefits/risks procedures involved with full code, DNR CC arrest and DNR CC, the patient and her opted for full code. Patient does want artificial life support including intubation, tube feed, ventilator and/chest compression, central venous catheter, vasopressor and DC shock if needed Total time spent in [id number] encounter in discussion of advanced directive 16 minutes. Charges/Coding Visit Charges Inpatient E&M: 97020 Init Hosp L3 Procedures Hospitalists Procedures: 01579 Advncd Care Plan 30 Min 09/14/22 1544 <Electronically signed by Abrahma Yepez MD> Cosigner Signature (if applicable): CC: Dr. Steve Alexandre MD; Dr. Abraham Yepez MD~ Signed [facility] Work Phone: Evaluation note* Diagnosis Onset Date Resolution Status Anxiety and depression chron ic GERD (gastroesophageal reflux disease) chronic HTN (hypertension), benign c hronic Occipital neuralgia chronic Chronic neck pain chronic GERD (gastroesophageal reflux disease) chronic HTN (hypertension), benign c hronic Occipital neuralgia chronic Paresthesias noneactive Dysuria noneactive [facility] Work Phone: Evaluation note* Diagnosis Onset Date Resolution Status Chronic neck pain chronic GERD (gastroesophageal reflux disease) chronic HTN (hypertension), benign c hronic Occipital neuralgia chronic Paresthesias noneactive Dysuria noneactive Anxiety and depression chron ic Chronic neck pain chronic HTN (hypertension), benign c hronic Hypothyroidism chronic Lumbar radiculopathy chronic Osteopenia chronic [facility] Work Phone: Evaluation note* Diagnosis Onset Date Resolution Status Paresthesias noneactive Dysuria noneactive Anxiety and depression chron ic Chronic neck pain chronic HTN (hypertension), benign c hronic Hypothyroidism chronic Lumbar radiculopathy chronic Osteopenia chronic [facility] Work Phone: Evaluation note* Diagnosis Onset Date Resolution Status Anxiety and depression chron ic Chronic neck pain chronic HTN (hypertension), benign c hronic Hypothyroidism chronic Lumbar radiculopathy chronic Osteopenia chronic Dizziness acute Dysequilibrium acute History of hypertension acut e Right bundle branch block ac [place] [facility] Work Phone: Evaluation note* Diagnosis Onset Date Resolution Status Anxiety and depression chron ic Eosinophilic esophagitis chr onic Esophageal stricture chronic HTN (hypertension), benign c hronic [facility] Work Phone: Evaluation note* Diagnosis Onset Date Resolution Status Anxiety and depression chron ic Esophageal stricture chronic GERD (gastroesophageal reflux disease) chronic Osteopenia chronic Vertigo chronic [facility] Work Phone: Evaluation note* Diagnosis Regular astigmatism, bilateral- Primary Hyperopia, bilateral Presbyopia Combined forms of age-related cataract of both eyes Other and combined forms of senile cataract 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 Vitreous floaters of both eyes documented in this encounter [facility] for referral (narrative)No reason for referral information [facility] Work Phone: Summary Purpose Family History Relationship Condition Age at Onset Recorded Date/T nathaniel Not Specified Hypertension Unknown mother Malignant neoplasm of breast Unknown father Malignant neoplasm Unknown Alcoholism Unknown grandmother Cardiac disease Unknown Cerebrovascular accident (CVA) Unknown sister Cardiac disease Unknown Malignant neoplasm Unknown Chronic obstructive pulmonary disease Unk nown Multiple sclerosis Unknown brother Alcoholism Unknown Advance Directives Advance Directive Response Recorded Date/ Time Living Will No September 05 12:11pm Power of Underwriter Mortgage Loan No September 05, 2019 12:11pm Advance Directive Response Recorded Date/ Time Living Will No September 05 11:11am Power of Underwriter Mortgage Loan No September 05, 2019 11:11am Advance Directive Response Recorded Date/ Time Living Will No September 14, 2 023 10:12am Power of Underwriter Mortgage Loan No September 14, 2022 10:12am Advance Directive Response Recorded Date/ Time Living Will No September 14, 2 023 12:29pm Power of Underwriter Mortgage Loan No September 14, 2022 12:29pm Advance Directive Response Recorded Date/ Time Living Will No September 14, 2 023 1:29pm Power of Underwriter Mortgage Loan No September 14, 2022 1:29pm Advance Directive Response Recorded Date/ Time Living Will No September 14, 2 023 1:29pm Do you have a Healthcare Power of Underwriter Mortgage Loan? No September 14, 2022 1:29pm Living Will No August 04 10:56am Do you have a Healthcare Power of Underwriter Mortgage Loan? No August 04, 2024 10:56am Advance Directive Response Recorded Date/ Time Living Will No September 14 2 023 1:29pm Do you have a Healthcare Power of Underwriter Mortgage Loan? No September 14, 2022 1:29pm Chief Complaint and Reason for Visit Chief Complaint 3 M FU 3 m fu possible uti Reason for Visit Anxiety and depressi on GERD (gastroesophageal reflux disease) HTN (hypertension), benign Occipital neuralgia Chronic neck pain GERD (gastroesophageal reflux disease) HTN (hypertension), benign Occipital neuralgia Paresthesias Dysuria Chief Complaint 3 m fu possible uti 3 M FU Reason for Visit Chronic neck pain GERD (gastroesophageal reflux disease) HTN (hypertension), benign Occipital neuralgia Paresthesias Dysuria Anxiety and depression Chronic neck pain HTN (hypertension), benign Hypothyroidism Lumbar radiculopathy Osteopenia Chief Complaint possible uti 3 M FU Reason for Visit Paresthesias Dysuria Anxiety and depression Chronic neck pain HTN (hypertension), benign Hypothyroidism Lumbar radiculopathy Osteopenia Chief Complaint 3 M FU DIZZINESS, NEAR SYNCOPE Reason for Visit Anxiety and depressi on Chronic neck pain HTN (hypertension), benign Hypothyroidism Lumbar radiculopathy Osteopenia Dizziness Dysequilibrium History of hypertension Right bundle branch block Chief Complaint 3 M FU DIZZINESS, NEAR SYNCOPE DIZZINESS, NEAR SYNCOPE DIZZINESS, NEAR SYNCOPE Reason for Visit Anxiety and depressi on Chronic neck pain HTN (hypertension), benign Hypothyroidism Lumbar radiculopathy Osteopenia Dizziness Dysequilibrium History of hypertension Right bundle branch block Chief Complaint 4 M FU Reason for Visit Anxiety and depressi on Eosinophilic esophagitis Esophageal stricture HTN (hypertension), benign Chief Complaint follow up Reason for Visit Anxiety and depressi on Esophageal stricture GERD (gastroesophageal reflux disease) Osteopenia Vertigo Chief Complaint Admit Date micro direct laryngoscopy with excision of hypo ph August 07, 2024 8:34am SOB/Pneumonia August 23, 2024 1 1:10am R06.02 - Shortness of breath September 192024 8:08am THORACIC SPINE September 22, 2024 1:54pm Room 8 September 22, 2024 2:12pm R06.02 - Shortness of breath September 252024 12:09pm 3 M FU November 03, 2024 1:08 pm Reason for Visit Admit Date Shortness of breath August 23, 2024 1 1:10am T12 compression fracture September 22, 2024 1:54pm Thoracic radiculopathy September 22 1:54pm Anxiety and depression November 03, 2024 1 :08pm Chronic back pain November 03, 2024 1:08 pm Eosinophilic esophagitis November 03, 2024 1:08pm HTN (hypertension), benign November 03 1:08pm Hypothyroidism November 03, 2024 1:08 pm Osteopenia November 03, 2024 1:08 pm Shortness of breath November 03, 2024 1:08 pm Chief Complaint Admit Date micro direct laryngoscopy with excision of hypo ph August 07, 2024 8:34am SOB/Pneumonia August 23, 2024 1 1:10am R06.02 - Shortness of breath September 192024 8:08am THORACIC SPINE September 22, 2024 1:54pm Room 8 September 22, 2024 2:12pm R06.02 - Shortness of breath September 252024 12:09pm 3 M FU November 03, 2024 1:08 pm 6 WK F/U November 15, 2024 3:0 4pm fOLLOW UP November 21, 2024 2:0 4pm INT LAB ORDERS November 21, 2024 2:1 9pm Reason for Visit Admit Date Shortness of breath August 23, 2024 1 1:10am T12 compression fracture September 22, 2024 1:54pm Thoracic radiculopathy September 22 1:54pm Anxiety and depression November 03, 2024 1 :08pm Chronic back pain November 03, 2024 1:08 pm Eosinophilic esophagitis November 03, 2024 1:08pm HTN (hypertension), benign November 03 1:08pm Hypothyroidism November 03, 2024 1:08 pm Osteopenia November 03, 2024 1:08 pm Shortness of breath November 03, 2024 1:08 pm Shortness of breath November 15, 2024 3:0 4pm Eosinophilic esophagitis November 21 2:04pm Chief Complaint Admit Date SOB/Pneumonia August 23, 2024 1 1:10am R06.02 - Shortness of breath September 192024 8:08am THORACIC SPINE September 22, 2024 1:54pm Room 8 September 22, 2024 2:12pm R06.02 - Shortness of breath September 252024 12:09pm 3 M FU November 03, 2024 1:08 pm 6 WK F/U November 15, 2024 3:0 4pm fOLLOW UP November 21, 2024 2:0 4pm INT LAB ORDERS November 21, 2024 2:1 9pm Pain November 27, 2024 7:3 0am E-ORDER December 05, 2024 8:44am Chief Complaint Admit Date SOB/Pneumonia August 23, 2024 1 1:10am R06.02 - Shortness of breath September 192024 8:08am THORACIC SPINE September 22, 2024 1:54pm Room 8 September 22, 2024 2:12pm R06.02 - Shortness of breath September 252024 12:09pm 3 M FU November 03, 2024 1:08 pm 6 WK F/U November 15, 2024 3:0 4pm fOLLOW UP Arabella 22nd, 2025 2:0 4pm INT LAB ORDERS November 21, 2024 2:1 9pm Pain November 27, 2024 7:3 0am E-ORDER December 05, 2024 8:44am THORACIC SPINE December 15, 2024 10:28 am Chief Complaint Admit Date R06.02 - Shortness of breath September 192024 8:08am THORACIC SPINE September 22, 2024 1:54pm Room 8 September 22, 2024 2:12pm R06.02 - Shortness of breath September 252024 12:09pm 3 M FU November 03, 2024 1:08 pm 6 WK F/U November 15, 2024 3:0 4pm fOLLOW UP November 21, 2024 2:0 4pm INT LAB ORDERS November 21, 2024 2:1 9pm Pain November 27, 2024 7:3 0am E-ORDER December 05, 2024 8:44am THORACIC SPINE December 15, 2024 10:28 am R06.02 - Shortness of breath January 10, 2025 10:39am ACUTE SURGICAL CLEARANCE January 10, 2025 12:42pm Reason for Visit Admit Date T12 compression fracture September 22, 2024 1:54pm Thoracic radiculopathy September 22 1:54pm Anxiety and depression November 03, 2024 1 :08pm Chronic back pain November 03, 2024 1:08 pm Eosinophilic esophagitis November 03, 2024 1:08pm HTN (hypertension), benign November 03 1:08pm Hypothyroidism November 03, 2024 1:08 pm Osteopenia November 03, 2024 1:08 pm Shortness of breath November 03, 2024 1:08 pm Shortness of breath November 15, 2024 3:0 4pm Eosinophilic esophagitis November 21 2:04pm T12 compression fracture December 15, 2024 10:28am Thoracic radiculopathy December 15, 2024 10 :28am Additional Source Comments INFORMATION SOURCE (unrecogn ized section and content) DATE CREATED AUTHOR 02/24/2018 Kerry almodovar DATE CREATED AUTHOR AUTHOR'S ORGANIZ ATION 07/11/2018 [facility] DATE CREATED AUTHOR AUTHOR'S ORGANIZ ATION 07/11/2018 [facility] [place] DATE CREATED AUTHOR AUTHOR'S ORGANIZ ATION 05/04/2023 [employer] DATE CREATED AUTHOR AUTHOR'S ORGANIZ ATION 12/12/2023 [facility] DATE CREATED AUTHOR AUTHOR'S ORGANIZ ATION 01/03/2025 [facility] DATE CREATED AUTHOR AUTHOR[facility]S ORGANIZ ATION [facility]20[facility] DATE CREATED AUTHOR AUTHOR'S ORGANIZ ATION 01/06/2025 [facility] Goals (unrecognized section and content) Goals may be documented in a n alternate sectionGoals may be documented in an alternate sectionGoals may be documented in an alternate sectionGoals may be documented in an alternate sectionGoals may be documented in an alternate sectionGoals may be documented in an alternate sectionGoals may be documented in an alternate sectionGoals may be documented in an alternate sectionGoals may be documented in an alternate section Care Teams (unrecognized sec tion and content) Team Status: Active Member Role Status Dates Dr. Richmond Ricks MD Family Provider Active Dr. Steve Alexandre MD Primary Care Provider Active Team Status: Inactive Member Role Status Dates Dr. Steve Alexandre MD Primary Care P mckinley, Attending Provider, Referring Provider Active Team Status: Inactive Member Role Status Dates Dr. Steve Alexandre MD Primary Care Provider, Atten ding Provider Active Team Status: Active Member Role Status Dates Dr. Steve Alexandre MD Primary Care Provider Active Dr. Km Alberts DO Emergency Provider Active Dr. Abraham Yepez MD Admit Provider, Attending Provi norma Active Team Status: Active Member Role Status Dates Dr. Steve Alexandre MD Primary Care Provider Active Dr. Km Alberts DO Emergency Provider Active Dr. Abraham Yepez MD Admit Provider, A ttending Provider, Other Provider Active Team Status: Inactive Member Role Status Dates Dr. Steve Alexandre MD Primary Care Provider Active Dr. Km Alberts DO Emergency Provider Active Dr. Abraham Yepez MD Admit Provider, Attending Provi norma Active Acid Correction Hand Relationship Specialty Start Date End Date Steve Alexandre MD [address] [place] [address] PCP - General Internal Medicine 05/12/23 Team Status: Active Member Role Status Dates Dr. Steve Alexandre MD Primary Care Provider Active Team Status: Inactive Member Role Status Dates Dr. Steve Alexandre MD Primary Care Provider Active Start: August 07, 2024 End: August 07, 2024 Dr. Liam Engle MD Attending Provider Active Start: August 07, 2024 End: August 07, 2024 Dr. Liam Engle MD Referring Provider Active Start: August 07, 2024 End: August 07, 2024 Team Status: Inactive Member Role Status Dates Dr. Steve Alexandre MD Primary Care Provider Active Start: August 23, 2024 End: August 23, 2024 Dr. Steve Alexandre MD Referring Provider Active Start: August 23, 2024 End: August 23, 2024 Dr. Thai Hurst DO Attending Provider Active S tart: August 23, 2024 End: August 23, 2024 Team Status: Inactive Member Role Status Dates Dr. Steve Alexandre MD Primary Care Provider Active Start: September 19, 2024 End: September 19, 2024 Dr. Thai Hurst DO Attending Provider Active S tart: September 19, 2024 End: September 19, 2024 Dr. Thai Hurst DO Referring Provider Active S tart: September 19, 2024 End: September 19, 2024 Team Status: Active Member Role Status Dates Dr. Steve Alexandre MD Primary Care Provider Active Start: September 19, 2024 Dr. Kalyan Adler MD Attending Provider Active Start: September 19, 2024 Team Status: Inactive Member Role Status Dates Dr. Steve Alexandre MD Primary Care Provider Active Start: September 22, 2024 End: September 22, 2024 Dr. Steve Alexandre MD Referring Provider Active Start: September 22, 2024 End: September 22, 2024 Dr. Yordan Shen MD Attending Provider Active Start: September 22, 2024 End: September 22, 2024 Team Status: Inactive Member Role Status Dates Dr. Steve Alexandre MD Primary Care Provider Active Start: September 22, 2024 End: September 22, 2024 Dr. Chester Siegel MD Attending Provider Active S tart: September 22, 2024 End: September 22, 2024 Team Status: Active Member Role Status Dates Dr. Steve Alexandre MD Primary Care Provider Active Start: September 25, 2024 Dr. Thai Hurst , Attending Provider Active S tart: September 25, 2024 Dr. Thai Hurst , Referring Provider Active S tart: September 25, 2024 Dr. Thai Hurst , Other Provider Active Start : September 25, 2024 Team Status: Inactive Member Role Status Dates Dr. Steve Alexandre MD Primary Care Provider Active Start: November 03, 2024 End: November 03, 2024 Dr. Steve Alexandre MD Attending Provider Active Start: November 03, 2024 End: November 03, 2024 Dr. Steve Alexandre MD Referring Provider Active Start: November 03, 2024 End: November 03, 2024 Team Status: Inactive Member Role Status Dates Dr. Steve Alexandre MD Primary Care Provider Active Start: November 15, 2024 End: November 15, 2024 Dr. Steve Alexandre MD Referring Provider Active Start: November 15, 2024 End: November 15, 2024 KAE Wilson Attending Provider Active Start: November 15, 2024 End: November 15, 2024 Team Status: Inactive Member Role Status Dates Dr. Steve Alexandre MD Primary Care Provider Active Start: November 21, 2024 End: November 21, 2024 Dr. Steve Alexandre MD Referring Provider Active Start: November 21, 2024 End: November 21, 2024 CHEVY Bean Attending Provider Active Start: November 21, 2024 End: November 21, 2024 Team Status: Inactive Member Role Status Dates Dr. Steve Alexandre MD Primary Care Provider Active Start: November 21, 2024 End: November 21, 2024 Dr. Steve Alexandre MD Attending Provider Active Start: November 21, 2024 End: November 21, 2024 Dr. Steve Alexandre MD Referring Provider Active Start: November 21, 2024 End: November 21, 2024 Team Status: Inactive Member Role Status Dates Dr. Steve Alexandre MD Primary Care Provider Active Start: November 27, 2024 End: November 27, 2024 Dr. Yordan Shen MD Attending Provider Active Start: November 27, 2024 End: November 27, 2024 Dr. Yordan Shen MD Referring Provider Active Start: November 27, 2024 End: November 27, 2024 Team Status: Inactive Member Role Status Dates Dr. Steve Alexandre MD Primary Care Provider Active Start: December 05, 2024 End: December 05, 2024 Dr. Steve Alexandre MD Attending Provider Active Start: December 05, 2024 End: December 05, 2024 Dr. Steve Alexandre MD Referring Provider Active Start: December 05, 2024 End: December 05, 2024 Team Status: Inactive Member Role Status Dates Dr. Steve Alexandre MD Primary Care Provider Active Start: December 15, 2024 End: December 15, 2024 Dr. Steve Alexandre MD Referring Provider Active Start: December 15, 2024 End: December 15, 2024 Dr. Yordan Shen MD Attending Provider Active Start: December 15, 2024 End: December 15, 2024 Team Status: Active Member Role Status Dates Dr. Steve Alexandre MD Primary Care Provider Active Start: January 10, 2025 KAE Wilson Attending Provider Active Start: January 10, 2025 KAE Wilson Referring Provider Active Start: January 10, 2025 Team Status: Inactive Member Role Status Dates Dr. Steve Alexandre MD Primary Care Provider Active Start: January 10, 2025 End: January 10, 2025 Dr. Steve Alexandre MD Referring Provider Active Start: January 10, 2025 End: January 10, 2025 CHEVY Navarro Attending Provider Active St art: January 10, 2025 End: January 10, 2025 Source Comments (unrecognize d section and content) In the event this informatio n is protected by the Federal Confidentiality of Alcohol and Drug Abuse Patient Records regulations: The Federal rules restrict any use of the information to criminally investigate or prosecute any alcohol or drug abuse patient.[facility] Reason for Visit (unrecogniz ed section and content) Reason Comments Cataract Evaluation FOR RECORDS PERTAINING TO PATIENTS WHO ARE OR HAVE BEEN ENROLLED IN A CHEMICAL DEPENDENCY/SUBSTANCEABUSE PROGRAM, SOME INFORMATION MAY BE OMITTED. This clinical summary was aggregated from multiple sources. Caution should be exercised in using it in the provision of clinical care. This summary normalizes information from multiple sources, and as a consequence, information in this document may materially change the coding, format and clinical context of patient data. In addition, data may be omitted in some cases. CLINICAL DECISIONS SHOULD BE BASED ON THE PRIMARY CLINICAL RECORDS. [facility] [employer] [facility]. provides no warranty or guarantee of the accuracy or completeness of information in this document.
== END | disposition home or self-care (01) ==
PROVIDERS: PCP Internal Medicine; Referring Provider Nurse Practitioner Family; Visit Provider Nurse Practitioner Family
DX: R06.02 Shortness of breath (principal)
CPT/HCPCS: 94060; 94726; 94729

== ENCOUNTER 2025-01-30 15:14 | Observation (INO) | payer MEDICARE, SELFPAY ==
--- NOTE | 2025-01-04 17:44 | PAT.ANE_ITS ---
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 When Was Last Pacemaker Check QUESTION #4 FULL TEXT: You/Your Family Experience fever (hyperthermia) with Anesthesia Last Oral Intake Last Oral intake: Last Oral Intake NPO since Meds taken in AM with sips of water? 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 Female Yes 01/04/25 15:57 HX of Motion Sickness No 01/04/25 15:57 HX of N/V After Surgery No 01/04/25 15:57 Non-Smoker Yes 01/04/25 15:57 Duration of Surgery greater Yes 01/04/25 15:57 than 60 minutes Number of Risk Factors 3 01/04/25 15:57 PONV Score Moderate Risk 01/04/25 15:57 Height & Weight Height & Weight: Anesthesia: Height & Weight Height 5 ft 4 in 12/15/24 10:29 Respiratory Assessment Respiratory Assessment - fabric machine operator: Respiratory Tract Infection Hx - fabric machine operator Hx Respiratory Tract Infection No 01/04/25 15:57 STOP Sleep Apnea STOP Sleep Apnea - fabric machine operator: STOP Sleep Apnea - fabric machine operator Hx Hypertension Yes: CONTROLLED WITH MED 01/04/25 15:57 Hx Sleep Apnea No 01/04/25 15:57 CPAP No 08/07/24 11:31 BIPAP Do you snore loudly (louder Yes 01/04/25 15:57 than talking or can be heard Do you often feel tired/ Yes 01/04/25 15:57 fatigued/ sleepy during daytime? Has anyone observed you stop No 01/04/25 15:57 breathing during sleep? STOP Results Positive 01/04/25 15:57 QUESTION #5 FULL TEXT : Do you snore loudly (louder than talking or can be heard through closed doors)? 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 Specify any problems Hx of Preganancy in last 3 No 01/04/25 15:57 Months Nurse Filling Out Transfusion DSCHRIBER 01/04/25 15:57 & Questions: Date: 01/04/25 01/04/25 15:57 Time: 16:00 01/04/25 15:57 Patient unable to answer at this time (ie. 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: /Reproductive Hx- fabric machine operator Hx Now No 01/04/25 15:57 Gestational Age (in weeks): EDC: Hx Hx Para Hx Section SAB No 01/04/25 15:57 PFSH Medical History (Updated 01/04/25 @ 16:09 by Arleth Yee) Dietary restriction Burning with urination Elevated liver enzymes Thyroid disease Pharyngitis Loss of hearing Wears glasses Post-menopausal Cancer Alcohol use Difficulty swallowing Gastric reflux Former smoker Pneumonitis Shortness of breath on exertion History of pain when walking History of echocardiogram History of stress test Esophageal stricture Osteoarthritis Vertigo Dysequilibrium Chronic back pain Lumbar radiculopathy Chronic neck pain Anxiety and depression GERD (gastroesophageal reflux disease) Occipital neuralgia Health care maintenance Eosinophilic esophagitis Vitamin D deficiency Osteopenia Fibromyalgia Compression fracture of body of thoracic vertebra Cholelithiasis with chronic cholecystitis Preop cardiovascular exam Abnormal ECG Chest pain Hypersomnia History of breast cancer Depression Hypothyroidism HTN (hypertension), benign Home Medications ?Medication ?Instructions ?Recorded ?Last Taken ?Type acetaminophen 500 mg tablet 1,000 mg PO DAILY PRN Pain 09/14/22 Unknown History omeprazole 40 mg capsule,delayed 40 mg PO BID gerd #60 caps 05/10/24 08/07/24 Rx release alendronate 70 mg tablet 70 mg PO QWEEK #12 TABLETS 1 Unknown Rx albuterol sulfate 90 mcg/actuation 2 puff inhalation Q 4H PRN 08/23/24 Unknown Rx aerosol inhaler shortness of breath or wheez ing #8.5 grams paroxetine HCl 40 mg tablet 40 mg PO DAILY #90 tabs Unknown Rx levothyroxine 150 mcg tablet 150 mcg PO DAILY #90 tabs 10/05/24 Unknown Rx amitriptyline 25 mg tablet 25 mg PO QHS #90 tabs 10/23 Unknown Rx indapamide 1.25 mg tablet 1.25 mg PO QAM htn #90 tabs 12/06/24 Unknown Rx atenolol 50 mg tablet 50 mg PO DAILY #90 tabs 12/01 04/26 Unknown Rx cholecalciferol (vitamin D3) 1,250 1,250 mcg PO GARZA #20 caps 12/28/24 Unknown Rx mcg (50,000 unit) capsule Allergy/AdvReac Type Severity Reaction Status Date / Time ciprofloxacin (From Cipro) Allergy Intermediate hives Verified 01/04/25 15:52 milk (dairy) Allergy Food Verified 01/04/25 15:52 Allergy Family History Mother Breast cancer Father Cancer Bone and Bladder CA Alcoholism Grandmother Heart disease CVA (cerebral vascular accident) Sister Heart disease Cancer lung COPD (chronic obstructive pulmonary disease) Multiple sclerosis Brother Alcoholism Other Hypertension Surgical History (Updated 01/04/25 @ 16:09 by Arleth Yee) History of lumpectomy of left breast History of laryngoscopy History of esophagogastroduodenoscopy (EGD) History of cardiac catheterization Hx of cholecystectomy Status post breast lumpectomy History of arthroscopic knee surgery History of fusion of cervical spine History of Social History Smoking Status: Former smoker quit date: 08/02/77 Tobacco: How many years used: 5 second hand exposure: No alcohol intake: current alcohol intake frequency: a few times a month substance use type: does not use what type of physical activity do you participate in: none Audit: Pertinent Findings Pertinent Findings EKG Perinent findings: January 02, 2025. Sinus rhythm with occasional PVCs. Left axis deviation. Right bundle branch block. September 14, 2022. Normal sinus rhythm. Left axis deviation. Right bundle branch block. Inferior infarct, age undetermined. Stress test pertinent findings: 01/06/2024. No EKG changes at a low workload and a rate dependent right bundle branch block. Echo (EF%) pertinent findings: September 19, 2024. EF 50%. No aortic stenosis. Heart catheterization pertinent findings: September 05, 2019. EF 60%. Normal coronary arteries. Recommend medical therapy. Recommendation Anesthesia Recommendation Anesthesia recommendation: OPTIMIZED for anesthesia
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
[2025-01-30] VITALS (14 sets, daily range): BP systolic 96–147; BP diastolic 49–72; PULSE 62–77; RESP 14–16; TEMP 35.9–36.9; O2SAT 95–100; BMI 33.3; BMI 33.1
[2025-01-30] MEDS: LR 1,000 ML - BOLUS PREOP 999 ML IV (11:36)
[2025-01-30] MEDS: Magnesium 2 GM for ERAS IV (11:36)
--- NOTE | 2025-01-30 12:21 | PCM.PRE.AN2 ---
ASA Classification* ASA Classification ASA Classification: 3 Assessment & Plan Anesthesia* Anesthesia Assessment Anesthesia Assessment: Discussed sedation and/or anesthesia options, risks, benefits, and alternatives with patient/parents/legal guardian/POA. Questions invited. The patient/parents/legal guardian/POA seems to understand and agrees to proceed with anesthesia plan. Reviewed the physical assessment, medical history, allergy history and patient home medications list prior to surgery/procedure/anesthetic and documented any changes. Performed airway and anesthesia risk assessments. Procedural Plan Add'l anesthesia plan details: we discussed the chances of epidural hematoma, PDPH, nerve injury, LAST, allergic rxn, lack of efficiacy of spinal//nerve block, possibility of conversion to GA. patient understands and would like to proceed Anesthesia Type Anesthesia Type: Spinal and Block (right adductor canal with ultrasound guidance) History Source History Obtained from:: Patient and Chart Anesthesia Focused Assessment* Temperature: 98.4 F Pulse Rate: 77 Blood Pressure: 147/64 Respiratory Rate: 16 Pulse Ox: 97 Oxygen Delivery Method: Room Air Airway Assessment Mouth opens: >3 cm Mallampati Score: II Teeth Condition: Intact Neck Range of motion (ROM): Full ROM Labs Anesthesia Preop lab: CBC WBC 6.8 K/mm3 (4.4-11.0) 08/07/24 09:00 08/07/24 RBC 4.96 M/mm3 (4.2-5.4) 08/07/24 09:00 08/07/24 Hgb 13.3 g/dL (12.0-15.0) 08/07/24 09:00 08/07/24 Hct 40.8 % (37-47) 08/07/24 09:00 08/07/24 Plt Count 255 K/mm3 (150-450) 08/07/24 09:00 08/07/24 CHEMISTRY Potassium 3.6 mmol/L (3.3-5.1) 12/05/24 08:48 12/05/24 Sodium 138 mmol/L (133-145) 12/05/24 08:48 12/05/24 Magnesium 2.4 mg/dL (1.6-2.6) 09/14/22 10:15 09/14/22 BUN 21 mg/dL (4-19) H 12/05/24 08:48 12/05/24 Creatinine 0.98 mg/dL (0.70-1.20) 12/05/24 08:48 12/05/24 Glucose 114 mg/dL (70-99) H 12/05/24 08:48 12/05/24 POC Glucose 89 mg/dL (74-106) 01/30/25 11:54 01/30/25 TSH 3.630 uIU/mL (0.300-4.200) 11/03/24 13:45 11/03/24 COAG PT 15.4 SECONDS (11.7-14.9) H 09/14/22 10:15 09/14/22 Pre-Assessment Diagnosis/Proposed Procedure Planned Operative Procedure(s): ROBOTIC ASSISTED RIGHT TOTAL KNEE ARTHROPLASTY Anesthesia History 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 When Was Last Pacemaker Check QUESTION #4 FULL TEXT: You/Your Family Experience fever (hyperthermia) with Anesthesia Last Oral Intake Last Oral intake: Last Oral Intake NPO since 09:30 01/30/25 11:17 Meds taken in AM with sips of Yes 01/30/25 11:17 water? 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 Female Yes 01/04/25 15:57 HX of Motion Sickness No 01/04/25 15:57 HX of N/V After Surgery No 01/04/25 15:57 Non-Smoker Yes 01/04/25 15:57 Duration of Surgery greater Yes 01/04/25 15:57 than 60 minutes Number of Risk Factors 3 01/04/25 15:57 PONV Score Moderate Risk 01/04/25 15:57 Height & Weight Height & Weight: Anesthesia: Height & Weight Height 5 ft 4 in 01/30/25 11:17 Weight: 88 kg 01/30/25 11:17 Body Mass Index (BMI) 33.3 01/30/25 11:17 Respiratory Assessment Respiratory Assessment - 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 Has anyone observed you stop No 01/04/25 15:57 breathing during sleep? STOP Results Positive 01/04/25 15:57 QUESTION #5 FULL TEXT : Do you snore loudly (louder than talking or can be heard through closed doors)? 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 Specify any problems Hx of Preganancy in last 3 No 01/04/25 15:57 Months Nurse Filling Out Transfusion DSCHRIBER 01/04/25 15:57 & Questions: Date: 01/04/25 01/04/25 15:57 Time: 16:00 01/04/25 15:57 Patient unable to answer at this time (ie. 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: /Reproductive Hx- coffer[employer] construction supervisor Hx Now No 01/04/25 15:57 Gestational Age (in weeks): EDC: Hx Hx Para Hx Section SAB No 01/04/25 15:57 Active Medications Active Medications: Current Medications Generic Name Dose Route Start Last Admin Trade Name Freq PRN Reason Stop Dose Admin Acetaminophen 1,000 mg 01/30/25 13:00 01/30/25 11:38 Acetaminophen 500 Mg Tablet PO 01/30/25 13:01 1,000 mg PREOP ONE Administration Sodium Chloride 77.9 ml/ 0 ml 01/30/25 13:00 Ropivacaine 200 mg/ OPERA.SITE 01/30/25 13:01 Epinephrine HCl 0.6 mg/ INTRAOP ONE Ketorolac Tromethamine 30 mg/ Morphine Sulfate 5 mg Dexamethasone Sodium Phosphate 10 mg 01/30/25 13:00 Dexamethasone 10 Mg/Ml Vial IV 01/30/25 13:01 INTRAOP ONE Gabapentin 600 mg 01/30/25 13:00 01/30/25 11:38 Gabapentin 600 Mg Tablet PO 01/30/25 13:01 600 mg PREOP ONE Administration Lactated Ringer's 1,000 mls @ 999 mls/hr 01/30/25 13:00 01/30/25 11:36 IV 01/30/25 14:00 999 mls/hr .Q1H1M AJITH Administration Cefazolin Sodium 2 gm/ Sodium 110 mls @ 150 mls/hr 01/30/25 13:00 Chloride IV 01/30/25 13:43 INTRAOP ONE Tranexamic Acid 1,000 mg/ 110 mls @ 660 mls/hr 01/30/25 13:00 Sodium Chloride IV 01/30/25 13:09 INTRAOP ONE Tranexamic Acid 1,000 mg/ 110 mls @ 660 mls/hr 01/30/25 13:00 Sodium Chloride IV 01/30/25 13:09 INTRAOP ONE Lactated Ringer's 1,000 mls @ 999 mls/hr 01/30/25 13:00 IV 01/30/25 14:00 .Q1H1M AJITH Lactated Ringer's 1,000 mls @ 125 mls/hr 01/30/25 13:00 IV 01/30/25 20:59 .Q8H AJITH Magnesium Sulfate 2 gm/ 104 mls @ 208 mls/hr 01/30/25 13:00 01/30/25 11:36 Dextrose IV 01/30/25 13:29 208 mls/hr INTRAOP ONE Administration Insulin Human Lispro 1 - 6 unit 01/30/25 13:00 Insulin Lispro 100 Unit/Ml Insuln.Pen SC Q4H PRN PRN BG>/= 180, SEE PROTOCOL Protocol PFSH Medical History Dietary restriction Burning with urination Elevated liver enzymes Thyroid disease Pharyngitis Loss of hearing Wears glasses Post-menopausal Cancer Alcohol use Difficulty swallowing Gastric reflux Former smoker Pneumonitis Shortness of breath on exertion History of pain when walking History of echocardiogram History of stress test Esophageal stricture Osteoarthritis Vertigo Dysequilibrium Chronic back pain Lumbar radiculopathy Chronic neck pain Anxiety and depression GERD (gastroesophageal reflux disease) Occipital neuralgia Health care maintenance Eosinophilic esophagitis Vitamin D deficiency Osteopenia Fibromyalgia Compression fracture of body of thoracic vertebra Cholelithiasis with chronic cholecystitis Preop cardiovascular exam Abnormal ECG Chest pain Hypersomnia History of breast cancer Depression Hypothyroidism HTN (hypertension), benign Home Medications ?Medication ?Instructions ?Recorded ?Last Taken ?Type acetaminophen 500 mg tablet 1,000 mg PO DAILY PRN Pain 09/14/22 Unknown History omeprazole 40 mg capsule,delayed 40 mg PO BID gerd #60 caps 05/10/24 01/29/25 Rx release alendronate 70 mg tablet 70 mg PO QWEEK #12 TABLETS 05/22/24 Unknown Rx albuterol sulfate 90 mcg/actuation 2 puff inhalation Q4H PRN 08/23/24 Unknown Rx aerosol inhaler shortness of breath or wheezing #8.5 grams paroxetine HCl 40 mg tablet 40 mg PO DAILY #90 tabs 09/18/24 01/30/25 09:30 Rx levothyroxine 150 mcg tablet 150 mcg PO DAILY #90 tabs 10/05/24 01/30/25 08:26 Rx amitriptyline 25 mg tablet 25 mg PO QHS #90 tabs 10/23/24 01/28/25 Rx indapamide 1.25 mg tablet 1.25 mg PO QAM htn #90 tabs 12/06/24 01/30/25 09:30 Rx atenolol 50 mg tablet 50 mg PO DAILY #90 tabs 12/28/24 01/30/25 09:30 Rx cholecalciferol (vitamin D3) 1,250 1,250 mcg PO GARZA #20 caps 12/28/24 01/28/25 Rx mcg (50,000 unit) capsule fluticasone propionate 220 2 puff inhalation BID #12 grams 01/17/25 Unknown Rx mcg/actuation HFA aerosol inhaler Allergy/AdvReac Type Severity Reaction Status Date / Time ciprofloxacin (From Cipro) Allergy Intermediate hives Verified 01/17/25 09:19 milk (dairy) Allergy Food Verified 01/17/25 09:19 Allergy Family History Mother Breast cancer Father Cancer Bone and Bladder CA Alcoholism Grandmother Heart disease CVA (cerebral vascular accident) Sister Heart disease Cancer lung COPD (chronic obstructive pulmonary disease) Multiple sclerosis Brother Alcoholism Other Hypertension Surgical History History of lumpectomy of left breast History of laryngoscopy History of esophagogastroduodenoscopy (EGD) History of cardiac catheterization Hx of cholecystectomy Status post breast lumpectomy History of arthroscopic knee surgery History of fusion of cervical spine History of Social History Smoking Status: Former smoker quit date: 08/02/77 Tobacco: How many years used: 5 second hand exposure: No alcohol intake: current alcohol intake frequency: a few times a month substance use type: does not use what type of physical activity do you participate in: none Review of Systems (Anesthesia) ROS Narrative System reviewed and no additional complaints, except as documented. Physical Exam Const alert and oriented x3 Neck full ROM Resp normal respiratory effort and normal air movement Cardio regular rate and regular rhythm Extremity full ROM
--- NOTE | 2025-01-30 13:00 | KNEE_PTH ---
PATIENT: MILTON COKER LOC: [facility]3 U#:[id number] AGE/SX: 74/F ROOM: [facility] [place] RE01/30/[address]: Dr. Jonathan Ricardo MD : 1950 BED: 1 DIS: 01/31/2025 SPEC #: [id number] RECD: 01/30/25 18:11 STATUS: JANEE REIris #: [id number] CORRY: 01/30/25 13:[address]: Delonte Peter DEPT: SURGICAL PATHOLOGY RECD BY: Timmy Chowdary ENTERED: 01/31/25 10:38 SP TYPE: TOTAL KNEE OTHR DR: DO Dr. Jonathan Woodall MD Dr. Efewongbe Oleghe, MD Dr. Nicholas F Kotsonis, MD Tissues: A - Knee, NOS Procedures: Decalcification bone/plaque Surgery Specimen Level III HEADER OPERATION: ERAS, total knee replacement robotic arm assist PRE-OP DIAGNOSIS: Primary osteoarthritis right knee TISSUE SUBMITTED: A- Right knee debrided bone and tissue MICROSCOPIC DIAGNOSIS A. Right knee, bone and soft tissue, total knee arthroplasty: - Articular bone with reactive/degenerative changes and focal trilineage hematopoiesis. - Cartilage and synovium with reactive/degenerative change. MICROSCOPIC DESCRIPTION Slides are reviewed. GROSS DESCRIPTION A. Received in formalin labeled with the patient's name and date of . Designated as right knee debrided bone and tissue is a 12.7 x 12.3 x 3.2 cm aggregate of celeste-yellow soft tissue, celeste-white fibrous tissue and irregular bone fragments, collectively comprising a knee joint. Majority of the bone fragments are surfaced by celeste granular articular cartilage with areas of eburnation and mild peripheral osteophyte formation. Talent Acquisition Program Manager sections are submitted in 2 cassettes, following decalcification as follows: A1: Bone with eburnation and osteophyte formationA2: Soft tissue OR 01/31/2025 CPT:56696,45581
[2025-01-30] MEDS: Cefazolin 2 GM in 0.9% Normal Saline (100mL Bag) 100 ML IV (14:20)
[2025-01-30] MEDS: TXA 1000mg in NS100 100ml (IVPB at Incision) 660 MG IV (14:22)
[2025-01-30] MEDS: ROPIVACAINE HCL OPERA.SITE (14:54)
[2025-01-30] MEDS: [UNRECOGNIZED DRUG - OTHER] OPERA.SITE (14:54)
[2025-01-30] MEDS: NORMAL SALINE OPERA.SITE (14:54)
[2025-01-30] MEDS: TXA 1000mg in NS100 100ml (IVPB at Closure) 660 MG IV (15:08)
--- NOTE | 2025-01-30 15:17 | PCM.OPRPT ---
Operative Report (Standard) Operative Information Date of Procedure: 01/30/25 Pre-Operative Diagnosis: Right knee primary osteoarthritis Post-Operative Diagnosis: Right knee primary osteoarthritis Surgery/Procedure Performed: Right knee minimally invasive robotic assisted total arthroplasty transcriptionist: Yes Continuous Improvement Black Belt: Ty Maynard Tasks completed by cardiology physician assistant: Other (See body of operative report) Additional neurosurgical physician assistant?: No Type of Anesthesia: Spinal RN Documented Start/Stop Times: Operation Date: 01/30/25 13:00 Case Time Into Pre-Op 01/30/25 11:04 Anesthesia Start 01/30/25 14:03 Into Room 01/30/25 14:03 Procedure Start 01/30/25 14:27 Procedure End 01/30/25 15:38 Anesthesia End 01/30/25 15:44 Out of Room 01/30/25 15:44 Into Recovery 01/30/25 15:46 Out of Recovery 01/30/25 17:04 Procedure Start Time: 14:27 Procedure Stop Time: 15:38 Select all DRAINS/GRAFTS/IMPLANTS that apply: Prosthetic device Prosthetic device details: See body of operative report Special Medications: 2 g Ancef, 1 g TXA at incision, 1 g TXA closure, 10 mg Decadron, joint cocktail (5 mg Duramorph, 30 mL of 0.5% Ropivicaine, 1000 units of epinephrine, 30 mg of Toradol) Estimated Blood Loss: 75 mL Fluids Replaced: 2000 mL crystalloid Specimen collected: Yes Description of specimen(s) removed: Bony cuts Description of surgery: Implants used: 1. Jerry size 4 triathlon cruciate retaining distal femoral press-fit component 2. [place] size 4 press-fit tritanium tibial baseplate 3. Jerry X3 9 mm CS polyethylene 4. [place] X3 32 mm asymmetric patella Brief history operative indications: 74-year-old F with history of right knee osteoarthritis with radiographic findings with loss of joint space, osteophyte formation and subchondral sclerosis. Failed conservative measures as mentioned in the H&P. Discussion of total knee arthroplasty as well as risk and benefits were discussed the patient including but not limited to blood loss, DVTs, PEs, neurovascular damage, general risk of anesthesia including loss of life, and stiffness or instability were discussed with patient. Patient demonstrated understanding and was able to sign informed consent. Procedure: On the date of procedure patient's right lower extremity was marked in the preoperative area. The patient was then taken back to the operating room where the patient was placed on the table in the supine position. All bony prominences were identified a well-padded. Anesthesia assumed control of the C-spine and airway and remained controlled throughout the remainder of the procedure. A tourniquet was placed on the right upper thigh and the leg was prepped in a sterile fashion. The surgeon then scrubbed at this time .Upon reentering the room right lower extremity was draped in a standard orthopedic fashion. A timeout was then called and everyone agreed upon the side, the site, the procedure to be performed, patient's identity and antibiotics given. Esmarch bandage was used to exsanguinate the extremity and the tourniquet was placed up to 250 mmHg with the knee in flexion. A midline skin incision was made and sharp dissection was taken down through skin subcutaneous tissue and fat. The standard medial parapatellar incision was made and the patella was subluxed laterally. An Appropriate deep MCL release was done and the fat pad was resected. Our attention was then directed to the patella. The patella was everted and a flat resection was made. The knee was then flexed up in 2 femoral pins were placed inside the incision and 2 tibial pins were placed outside the incision in the medial tibia bicortically. Once this was completed the 2 checkpoints in the femur and tibia were placed. Knee was then flexed up and the bony landmarks were registered. Once this was completed knee was taken through range of motion and manually stressed allowing us to a plan for an appropriate tibial cut. The robotic arm was brought into the field sterilely and checkpoint and saw were registered. Based on the patient's deformity the tibial cut was made neutral to the tibial axis. At this time the tensioner was then placed in the joint and ligament tension was checked at 90 degrees and full extension. Based on the patient's ligamentous tension appropriate adjustments were made to the operative plan and ligament releases were done. Once we were happy with our operative plan with balanced flexion and extension gaps our attention was directed to the femur. The robot was brought into the field sterilely and registered. Posterior condylar cuts, anterior chamfer cuts and anterior cuts were appropriately made for a size 4 femur. When these were completed the saws were switched out in the distal femoral and posterior chamfer cuts were made. Protecting the soft tissue throughout this time. A size 4 tibial base plate was selected. the knee was flexed to 90 degrees and the soft tissues and posterior osteophytes were removed from the joint. 40 cc of the periarticular injection was injected into the posterior medial corner of the joint. The appropriate trials were then placed on the femur and tibia. A trial polyethylene was trialed to ensure proper balancing and stability of the knee. The appropriate tibial internal rotation was then marked with a bovie. Our attention was then directed to the patella. The lug holes were drilled and the patella trial was placed. Patellar tracking was checked and deemed appropriate. Once we were happy lug holes were drilled for the femur and trial components were removed. The tibia was subluxed and pinned into place and the keel was punched and drilled appropriately. Final components were verified and opened. The wound was copiously irrigated with normal saline. When the cement was ready the components were impacted and cemented into place starting with the tibia then the femur, finally the patella was compressed into place. The trial poly component was placed and the knee was placed in full extension. Once the the implants were secured, the tracking, alignment and balance were verified and a size 9 mm CS polyethylene component was placed. Once the final components were placed a 3-minute dilute Betadine lavage was performed followed by an Irrisept lavage was performed and the wound was copiously irrigated with normal saline solution and the periarticular injection was given. The wound was closed in a layer ponce fashion using #1 vicryl interrupted sutures for the arthrotomy, 2-0 interrupted Vicryl suture for the subcuticular layer and mario for final skin closure. A sterile compressive dressing was then placed. The patient was then awakened from anesthesia, transferred to the [facility] and transferred to the PACU for recovery. Post op plan DVT ppx: ASA 81mg BID, thigh high compression stockings Follow up: in office in 2 weeks for wound check PT: to start POD #0 at hospital, outpatient PT should be arranged. My physician neurosurgical physician assistant was a vital part of this case, they was important because there was not another skilled set of hands available to their training and aptitude needed for safe and appropriate completion of this case. They were important in appropriate retraction during the case, and protection of soft tissues during bony cuts. In particular the experience and skill of this neurosurgical physician assistant made for safe retraction and exposure during implantation of medical implants without damage to vital soft tissues or structures. His intimate knowledge of the case and my steps aided in safe and expedient completion of the procedure as well as appropriate position of the leg during the case. He was also vital in assisting with closure under my direct supervision. Due to the complexity of this case robotic arm was used to assist in the surgery to improve accuracy and clinical outcomes. Surgical Findings: Stage IV osteoarthritis. Stable knee with good patella tracking Complications Complications: No Admit VTE Documentation VTE Present on Admission: No VTE Mechan Device Prophylaxis: SCD's and Thigh High AMMON Hose VTE Pharm Prophylaxis ordered?: Yes
[2025-01-30] MEDS: LR 1,000 ML - BOLUS POSTOP 999 ML IV (15:50)
--- NOTE | 2025-01-30 16:00 | RAD_ITS ---
PROCEDURE: KNEE 1 OR 2 VIEWS 01/30/2025 REASON FOR EXAM: TKA TECHNIQUE: AP and lateral portable postoperative right knee COMPARISON: None provided. RAD/Knee 1 or 2 Views IMPRESSION: Overlying skin mario are seen. The patient is postoperative right total knee arthroplasty, with satisfactory a lignment seen. No complication is noted. No fracture site is evident. Reading Location: [place] [id number]
--- NOTE | 2025-01-30 16:04 | PCM.POST.ANE ---
Anesthesia: Postop Eval I Current Vital Signs Temperature: 97 F Pulse Rate: 71 Blood Pressure: 127/54 Respiratory Rate: 16 Pulse Ox: 100 Oxygen Delivery Method: Nasal Cannula Assessment Airway patent: Yes Spontaneous unlabored respirations: Yes Mental status: Awake nausea: No Vomiting: No Anesthesia Complication: No Fluid Hydration Crystalloid volume administer (ml): 2,000 Total IV fluid infused: 2,000 Progress Note Anesthesia document: Postop Eval 1 completed: Yes
--- NOTE | 2025-01-30 17:13 | CON.PCM.HO_ITS ---
Assessment & Plan Assessment/Plan (1) Status post right knee replacement: PLAN: Plan Patient is a 74-year-old female who presented [facility] on 01/30/2025 for planned right knee replacement. Medicine consulted postoperatively for medical management. 1. Right knee osteoarthritis ? Orthopedic surgery primary. S/p right robotic assisted total knee arthroplasty with Dr. Peter on 01/30. Tolerated procedure well, no intraoperative complications noted. Pain control, DVT prophylaxis and further postoperative care per orthopedics. Follow-up a.m. CBC and BMP. PT/OT/case management consulted. 2. Hypertension ? Normotensive postoperatively. Okay to resume home atenolol and indapamide with hold parameters. 3. Anxiety/depression ? Continue home paroxetine and amitriptyline at night. 4. Hypothyroidism ? Continue home Synthroid. 5. GERD ? Continue home PPI. DVT prophylaxis: Baby aspirin twice daily per orthopedics Total clinical time spent by myself addressing the patient's medical issues, reviewing all the data, and collaborating with patient's care team: 35 minutes. HPI Consult Data Date of Consult: 01/30/25 HPI Narrative Reason for Consultation: Postoperative medical management HPI Narrative: MILTON COKER, is a 74 F who presented to [facility] on 01/30/2025 for planned right knee replacement. Medicine consulted postoperatively for medical management. Patient had right knee minimally invasive robotic assisted total arthroplasty done with Dr. Peter today. Tolerated procedure well, no intraoperative complications noted. I saw the patient at bedside this evening, 2 other family members present. Patient was sitting back comfortably in bed, conversing normally, in no acute distress. She denied any knee pain currently. Denied any other acute concerns at this time. [facility]MERLY [facility] Medical History Dietary restriction Burning with urination Elevated liver enzymes Thyroid disease Pharyngitis Loss of hearing Wears glasses Post-menopausal Cancer Alcohol use Difficulty swallowing Gastric reflux Former smoker Pneumonitis Shortness of breath on exertion History of pain when walking History of echocardiogram History of stress test Esophageal stricture Osteoarthritis Vertigo Dysequilibrium Chronic back pain Lumbar radiculopathy Chronic neck pain Anxiety and depression GERD (gastroesophageal reflux disease) Occipital neuralgia Health care maintenance Eosinophilic esophagitis Vitamin D deficiency Osteopenia Fibromyalgia Compression fracture of body of thoracic vertebra Cholelithiasis with chronic cholecystitis Preop cardiovascular exam Abnormal ECG Chest pain Hypersomnia History of breast cancer Depression Hypothyroidism HTN (hypertension), benign Home Medications ?Medication ?Instructions ?Recorded ?Last Taken ?Type acetaminophen 500 mg tablet 1,000 mg PO DAILY PRN Pain 09/14/22 Unknown History omeprazole 40 mg capsule,delayed 40 mg PO BID gerd #60 caps 05/10/24 01/29/25 Rx release alendronate 70 mg tablet 70 mg PO QWEEK #12 TABLETS 1 Unknown Rx albuterol sulfate 90 mcg/actuation 2 puff inhalation Q 4H PRN 08/23/24 Unknown Rx aerosol inhaler shortness of breath or wheez ing #8.5 grams paroxetine HCl 40 mg tablet 40 mg PO DAILY #90 tabs 01/30/25 09:30 Rx levothyroxine 150 mcg tablet 150 mcg PO DAILY #90 tabs 10/05/24 01/30/25 08:26 Rx amitriptyline 25 mg tablet 25 mg PO QHS #90 tabs 10/2301/28/25 Rx indapamide 1.25 mg tablet 1.25 mg PO QAM htn #90 tabs 12/06/24 01/30/25 09:30 Rx atenolol 50 mg tablet 50 mg PO DAILY #90 tabs 12/0101/30/25 09:30 Rx cholecalciferol (vitamin D3) 1,250 1,250 mcg PO GARZA #20 caps 12/28/24 01/28/25 Rx mcg (50,000 unit) capsule fluticasone propionate 220 2 puff inhalation BID #12 g kari 01/17/25 Unknown Rx mcg/actuation HFA aerosol inhaler Allergy/AdvReac Type Severity Reaction Status Date / Time ciprofloxacin (From Cipro) Allergy Intermediate hives Verified 01/17/25 09:19 milk (dairy) Allergy Food Verified 01/17/25 09:19 Allergy Family History Mother Breast cancer Father Cancer Bone and Bladder CA Alcoholism Grandmother Heart disease CVA (cerebral vascular accident) Sister Heart disease Cancer lung COPD (chronic obstructive pulmonary disease) Multiple sclerosis Brother Alcoholism Other Hypertension Surgical History History of lumpectomy of left breast History of laryngoscopy History of esophagogastroduodenoscopy (EGD) History of cardiac catheterization Hx of cholecystectomy Status post breast lumpectomy History of arthroscopic knee surgery History of fusion of cervical spine History of Social History Smoking Status: Former smoker quit date: 08/02/77 Tobacco: How many years used: 5 second hand exposure: No alcohol intake: current alcohol intake frequency: a few times a month substance use type: does not use what type of physical activity do you participate in: none ROS Constitutional Constitutional: Denies chills, fatigue, fever(s) or weakness Cardiovascular Cardiovascular: Denies chest pain Respiratory/Chest Respiratory/Chest: Denies shortness of breath at rest Gastrointestinal Gastrointestinal: Denies abdominal pain Musculoskeletal Musculoskeletal: Denies arthralgias, joint pain or myalgias Physical Exam Const alert, oriented x3 and no apparent distress Constitutional Narrative: Elderly female, class I obesity, good energy level, sitting back comfortably in bed, conversing normally, no acute distress. General Appearance: cooperative and comfortable HEENT normocephalic, head/scalp atraumatic, hearing grossly normal bilaterally, nasal mucous membranes and turbinates normal and moist oral mucous membranes Eyes PERRL, EOMs intact bilaterally and conjunctivae normal Neck full ROM Chest inspection of chest normal Resp normal respiratory effort, normal air movement, no use of accessory muscles and clear to auscultation bilaterally Cardio regular rate, regular rhythm, no murmurs and peripheral pulses 2+ throughout GI normal to inspection, nondistended, normoactive bowel sounds, soft to palpation, non-tender and non-distended Back/Spine normal ROM Extremity Extremity Narrative: Right knee with dressing and ice pack in place. Skin no rashes or lesions noted Psych mental status grossly normal Lab / Micro Data Labs: Laboratory Results - last 24 hr 01/30/25 11:54: POC Glucose 89 Imaging Radiology Impression Knee X-Ray 01/30/25 16:00 IMPRESSION: Overlying skin mario are seen. The patient is postoperative right total knee arthroplasty, with satisfactory alignment seen. No complication is noted. No fracture site is evident. Reading Location: [place] [address] Charges/Coding Visit Charges Inpatient E&M: 30860 Subs Hosp L2
[2025-01-30] MEDS: LR 1,000 ML - 125 ML/HR (POST BOLUS) POST OP IV (18:16)
--- NOTE | 2025-01-30 18:18 | POSTOPAN2_ITS ---
Anesthesia Postop Eval I Sum Postop Eval Completion status Anesthesia document: Postop Eval 1 completed: Yes Anesthesia Postop Eval I Summary Anesthesia Postop Eval I Summary: Anesthesia Postop Eval I: Assessment Summary Airway patent Yes 01/30/25 16:05 ROOM ATTENDANT.ACAR Spontaneous unlabored Yes 01/30/25 16:05 ROOM ATTENDANT.ACAR respirations Mental status Awake 01/30/25 16:05 ROOM ATTENDANT.ACAR nausea No 01/30/25 16:05 ROOM ATTENDANT.ACAR Vomiting No 01/30/25 16:05 ROOM ATTENDANT.ACAR Anesthesia Postop Eval I: Fluid Summary Crystalloid volume administer 2,000 01/30/25 16:05 ROOM ATTENDANT.ACAR (ml) Colloids volume administered ( ml) Blood Product volume administered (ml) Total IV fluid infused 2,000 01/30/25 16:05 ROOM ATTENDANT.ACAR Anesthesia Postop Eval I: Summary Notes Anesthesia Complication No 01/30/25 16:05 ROOM ATTENDANT.ACAR Anesthesia Complication Comment: Post-operative progress note Anesthesia: Postop Eval II Evaluation Mental status: Awake and Calm Pain Level: 5 nausea: No Vomiting: No Complications Anesthesia Complication: No
--- NOTE | 2025-01-30 18:18 | PCM.POSTANE2 ---
Anesthesia Postop Eval I Sum Postop Eval Completion status Anesthesia document: Postop Eval 1 completed: Yes Anesthesia Postop Eval I Summary Anesthesia Postop Eval I Summary: Anesthesia Postop Eval I: Assessment Summary Airway patent Yes 01/30/25 16:05 GLOBAL SUPPLY CHAIN DIRECTOR.ACAR Spontaneous unlabored Yes 01/30/25 16:05 GLOBAL SUPPLY CHAIN DIRECTOR.ACAR respirations Mental status Awake 01/30/25 16:05 GLOBAL SUPPLY CHAIN DIRECTOR.ACAR nausea No 01/30/25 16:05 GLOBAL SUPPLY CHAIN DIRECTOR.ACAR Vomiting No 01/30/25 16:05 GLOBAL SUPPLY CHAIN DIRECTOR.ACAR Anesthesia Postop Eval I: Fluid Summary Crystalloid volume administer 2,000 01/30/25 16:05 GLOBAL SUPPLY CHAIN DIRECTOR.ACAR (ml) Colloids volume administered ( ml) Blood Product volume administered (ml) Total IV fluid infused 2,000 01/30/25 16:05 GLOBAL SUPPLY CHAIN DIRECTOR.ACAR Anesthesia Postop Eval I: Summary Notes Anesthesia Complication No 01/30/25 16:05 GLOBAL SUPPLY CHAIN DIRECTOR.ACAR Anesthesia Complication Comment: Post-operative progress note Anesthesia: Postop Eval II Evaluation Mental status: Awake and Calm Pain Level: 5 nausea: No Vomiting: No Complications Anesthesia Complication: No
[2025-01-30] MEDS: Ensure Surgery 237 ML LIQUID PO (18:19)
[2025-01-30] MEDS: Budesonide Respules 0.5 MG/2 ML AMPUL.NEB. INHALATION (20:15)
[2025-01-30] MEDS: Senna/Docusate Sodium 1 Tablet 2 TABLET PO (20:57)
[2025-01-30] MEDS: Cefazolin 1 GM/50 ML BAG IV (22:21)
[2025-01-31 00:56] VITALS: BP 108/53; PULSE 64; RESP 16; TEMP 36.4; O2SAT 96
[2025-01-31 01:00] VITALS: BMI 33.1
[2025-01-31 04:56] VITALS: BP 110/47; PULSE 61; RESP 16; TEMP 36.4; O2SAT 94
[2025-01-31 05:00] VITALS: BMI 33.1
[2025-01-31 06:18] LABS: Hematocrit 35.9 % (37-47); Hemoglobin 12.0 g/dL (12.0-15.0); Mean Corp Hgb Conc 33.4 g/dL (32-36); Mean Corpuscular Volume 81.8 fL (81-99); Mean Platelet Vol. 11.2 fl (6.2-12.0); Platelet Count 207 K/mm3 (150-450); RBC Distribution Width CV 13.8 % (11.6-14.6); RBC Distribution Width SD 40.9 fl (35.1-43.9); Red Blood Count 4.39 M/mm3 (4.2-5.4); White Blood Count 12.5 K/mm3 (4.4-11.0)
[2025-01-31] MEDS: Cefazolin 1 GM/50 ML BAG IV (06:51)
[2025-01-31] MEDS: 0.9% Normal Saline (250mL Bag) 250 ML 15 ML IV (06:51)
[2025-01-31] MEDS: Budesonide Respules 0.5 MG/2 ML AMPUL.NEB. INHALATION (07:03)
[2025-01-31 07:06] VITALS: PULSE 59; RESP 16; O2SAT 100
--- NOTE | 2025-01-31 07:24 | PCM.PN.HOSP ---
Reason for Visit Reason for Visit: Diagnoses Presence of right artificial knee joint (01/30/25) Subjective Subjective Patient is a 74-year-old lady who underwent an elective right knee replacement On 01/30/[address] Peter hospitalist service was consulted to assist with management of patient medical comorbidities Objective Data Objective Data Vital Signs: Vital Signs Temp Pulse Resp BP Pulse Ox O2 Del Method O2 Flow Rate 97.6 F L 59 L 16 110/47 L 100 Room Air 2 01/31/25 04:56 01/31/25 07:06 01/31/25 07:06 01/31/25 04:56 01/31/25 07:06 01/31/25 07:06 01/31/25 00:56 Oxygen Flow Rate (L/min) 2 Oxygen Delivery Method Room Air Weight: 88 kg Body Mass Index (BMI) 33.1 Intake & Output: Intake and Output for Last 24 Hours 01/29/25 01/30/25 01/31/25 23:59 23:59 23:59 Intake Total 2566.67 / 2566.67 Output Total 200 / 200 Balance 2366.67 / 2366.67 Lab / Micro Data 01/31/25 05:40 01/31/25 05:40 Labs: Laboratory Results - last 24 hr 01/30/25 11:54: POC Glucose 89 01/31/25 05:40: WBC 12.5 H, RBC 4.39, Hgb 12.0, Hct 35.9 L, MCV 81.8, MCH 27.3, MCHC 33.4, RDW Std Deviation 40.9, RDW Coeff of Annie 13.8, Plt Count 207, MPV 11.2 Radiography Diagnostic Testing: Radiology Impression Knee X-Ray 01/30/25 16:00 IMPRESSION: Overlying skin mario are seen. The patient is postoperative right total knee arthroplasty, with satisfactory alignment seen. No complication is noted. No fracture site is evident. Reading Location: [place] [address] Physical Exam Narrative GENERAL: cooperative HEENT: Atraumatic; normocephalic EYES; Anicteric, Normal Conjunctiva NECK; supple, normal thyroid, RESPIRATORY: Diminished to auscultation CARDIOVASCULAR: Regular S1 S2, GI: soft, normoactive bowel sounds, : No Renal angle tenderness; EXTREMITIES: No edema, no clubbing, MUSCULOSKELETAL: Right knee in surgical dressing NEURO: Awake; no lateralizing signs. SKIN: No Rash PSYCH; Flat affect Assessment & Plan Assessment/Plan (1) Status post right knee replacement: PLAN: Plan Patient is a 74-year-old lady who underwent an elective right knee replacement On 01/30/[address] Peter hospitalist service was consulted to assist with management of patient medical comorbidities 1. Right knee osteoarthritis ? Orthopedic surgery primary. S/p right robotic assisted total knee arthroplasty with Dr. Petre on 01/30. Tolerated procedure well, no intraoperative complications noted. Pain control, DVT prophylaxis and further postoperative care per orthopedics. Follow-up a.m. CBC and BMP. PT/OT/case management consulted. ? 01/31/2025; patient postoperative. So far uneventful except for relatively low blood 2. Hypertension ? 02/01/2020 held patient blood pressure medications this a.m. given low blood pressure 3. Anxiety/depression ? Continue home paroxetine and amitriptyline at night. 4. Hypothyroidism ? Continue home Synthroid. 5. GERD ? Continue home PPI. DVT prophylaxis: ? As per primary service?aspirin Time spent in the patient's overall evaluation,decision-making process, review of diagnostic data, adjustment of management, discussion with other providers, nursing nursing and ancillary staff involved in patient's care documentation, 35 minutes Charges/Coding Visit Charges Inpatient E&M: 40596 Subs Hosp L2
[2025-01-31 07:56] LABS: Anion Gap 12 (5-15); BUN 17 mg/dL (4-19); BUN/Creat Ratio 18.2 RATIO (10-20); Calcium,Total 8.8 mg/dL (7.6-11.0); Carbon Dioxide 20.5 mmol/L (21.0-32.0); Chloride 103 mmol/L (98-108); Estimated Creatinine Clearance 59.35 ml/min (50-250); Glucose 174 mg/dL (70-99); Potassium 4.2 mmol/L (3.3-5.1)
[2025-01-31 08:14] VITALS: BP 108/44; PULSE 63; RESP 18; TEMP 36.6; O2SAT 95
[2025-01-31 08:17] VITALS: BMI 33.1
[2025-01-31] MEDS: Senna/Docusate Sodium 1 Tablet 2 TABLET PO (08:36)
--- NOTE | 2025-01-31 09:31 | PN.ORTHO_ITS ---
Subjective Subjective The patient was sitting in bedside chair upon examination. Patient denies any chest pain, shortness of breath, dizziness, lightheadedness, nausea or vomiting, or calf pain. Pain is controlled on medications. No adverse overnight events. Patient has been up working with therapy already. She does have pain when she is up and moving. Pain has been tolerable. Plan is for patient to go home and she is ready for this today. Objective Data Objective Data Vital Signs: Vital Signs Temp Pulse Resp BP Pulse Ox O2 Del Method O2 Flow Rate 97.9 F 63 18 108/44 L 95 Room Air 2 01/31/25 08:14 01/31/25 08:14 01/31/25 08:14 01/31/25 08:14 01/31/25 08:14 01/31/25 08:14 01/31/25 00:56 Oxygen Flow Rate (L/min) 2 Oxygen Delivery Method Room Air Weight: 88 kg Body Mass Index (BMI) 33.1 Intake & Output: Intake and Output for Last 24 Hours 01/29/25 01/30/25 01/31/25 23:59 23:59 23:59 Intake Total 2566.67 / 2566.67 350 / 350 Output Total 200 / 200 Balance 2366.67 / 2366.67 350 / 350 Lab / Micro Data 01/31/25 05:40 01/31/25 05:40 Labs: Laboratory Results - last 24 hr 01/30/25 11:54: POC Glucose 89 01/31/25 05:40: WBC 12.5 H, RBC 4.39, Hgb 12.0, Hct 35.9 L, MCV 81.8, MCH 27.3, MCHC 33.4, RDW Std Deviation 40.9, RDW Coeff of Annie 13.8, Plt Count 207, MPV 11.2, Sodium 135, Potassium 4.2, Chloride 103, Carbon Dioxide 20.5 L, Anion Gap 12, BUN 17, Creatinine 0.92, Estim Creat Clear Calc 59.35, Est GFR (MDRD) Non-Af 66, BUN/Creatinine Ratio 18.2, Glucose 174 H, Calcium 8.8 Radiography Diagnostic Testing: Radiology Impression Knee X-Ray 01/30/25 16:00 IMPRESSION: Overlying skin mario are seen. The patient is postoperative right total knee arthroplasty, with satisfactory alignment seen. No complication is noted. No fracture site is evident. Reading Location: [place] [address] Physical Exam Narrative Vital signs stable and afebrile. SCDs and AMMON hose are in place bilaterally Patient is able to plantarflex and dorsiflex actively. Sensation is intact to light touch to saphenous, sural, superficial and deep peroneal, and tibial distribution. Main Mepilex dressing is clean dry and intact. Minimal drainage over the distal pin site Negative Homans bilaterally, negative signs and symptoms of DVT. Const alert, oriented x3 and no apparent distress Assessment & Plan Assessment/Plan (1) Status post right knee replacement: PLAN: 1. S/P robotic assisted right total knee arthroplasty POD #1 2. Continue Pain Medications: Tylenol and oxycodone. Patient had some decreased kidney function with GFR less than 60. We are holding off of nonsteroidal anti-inflammatories. We discussed the postoperative pain block in great detail. I did advise her that most patients postoperative day 2 is most painful. We discussed maintaining appropriate and adequate pain control for best recovery. 3. DVT Prophylaxis: Take 81 mg aspirin twice daily for 4 weeks postoperatively for DVT prophylaxis. Patient denies past history of DVT or pulmonary embolism. Patient will continue with AMMON hose for 2 weeks postoperatively 4. PT/OT: Weightbearing as tolerated with walker 5. H & H: 12.0/35.9, asymptomatic. Monitoring patient's hemoglobin and hematocrit with postoperative anemia without any intra operative complications. At this time no treatment is required. 6. Reactive leukocytosis: 12.5, Afebrile. Patient did receive Decadron intraoperatively. No clinical signs of infection. 7. Encouraged Incentive Spirometry 8. Patient is aware of postoperative constipation that can occur from 1-3 days postoperatively. Will continue with senna 2 tablets twice daily until first bowel movement. Patient was advised if not having a bowel movement after day 3 she is to contact orthopedics so appropriate change can be made. With our office closed due to the holiday on Wednesday I did advise her if she has not had a bowel movement by Wednesday she will add in MiraLAX. If no further bowel movement by Wednesday she will contact our office. Patient voiced understanding. 9. Continue postoperative medical treatment per medicine 10. Disposition: Patient overall is doing very well this morning. Plan will be for discharge home today as long as patient's pain is adequately controlled, tolerates therapy, and remains medically stable. Patient would like her prescriptions E scribed to [facility] pharmacy. She has outpatient physical therapy established for February 05, 2025 due to the holiday weekend. I did recommend she work on the exercises twice daily up until her first PT appointment. She voiced understanding. She will follow-up per postoperative instructions. Patient will contact our office with any concerns or questions. We did discuss postoperative recovery in detail and all questions were answered. I have reviewed the [place] Automated Rx Reporting System (OARRS) report for this patient for refill pattern and other prescriber involvement as part of the appropriate surveillance for the provision of acute and chronic controlled medications. The report was requested and reviewed on the date of this entry and was considered in the prescribing process. This dictation was created using voice recognition software. Phonetic and/or grammatical errors may exist.
--- NOTE | 2025-01-31 09:35 | PCM.DC ---
Discharge Instructions Diet Discharge Diet: No restrictions DC O2, CPAP, BIPAP needs Home O2 Discharge instructions: No Dressing / Incision Discharge Activity: May Not Drive (No driving for 6 weeks postoperatively. Must also be off all narcotics and able to walk 100 feet without the use of cane or walker.) May shower in (days): 1 (Please turn dressing away from water. Okay to get wet as long as dressing is intact to skin.) Ice area for (Minutes): 20 (Every 1-2 hours while awake. Please place barrier between the skin and ice pack.) Weight Bearing Status: Weight bearing as tolerated Keep extremity elevated above heart level: Operative Extremity Dressing / Incision Call your doctor if your incision/area has: Continuous Slow Oozing, Sudden Increased Bleeding, Increased Pain/ Swelling, Increased Redness and Foul Smelling Discharge Call your doctor if you observe: Fever of 101 or Higher, Coldness, Increased Pain, Numbness or Tingling, Change in Color, Shortness of breath, Chest pain, Calf discomfort and Uncontrolled pain Remove Dressing in: 4 days (Okay to remove dressing on February 04, 2025) Additional Dressing/Incision Instructions:: Follow [facility] Post-op Instructions. Recommend getting up every hour while awake and walking for several minutes. If no bowel movement by February 02, 2025, we recommend you add in MiraLAX. If you do not have any bowel movement by Wednesday contact our office. Once postoperative dressing has been removed only use gentle soap and water over the incision. Do not use any ointments, Neosporin, salves, alcohol pads over the incision for 6 weeks postoperatively. Do not submerge underwater for 6 weeks postoperatively. Continue with AMMON hose/elastic stockings for 2 weeks postoperatively. May remove at nighttime but needs to be placed back on the leg during the day. Do NOT use alcohol with narcotic pain medication. Do NOT make important decisions while taking narcotic medication. If you have problems with taking your medication (rash, itching, nausea, etc.) call the office at once. Follow Up Care Test Results: Test results from this visit will be discussed in further detail at your follow-up appointment, if applicable. Discharge Plan Admission Admit Date/Time: 01/30/25 15:14 Attending Provider: Jonathan Ricardo Primary Care Provider: Rohith Alexandre Consulting Providers: Tom Birmingham; Matt Yu; Delonte Peter Discharge Orders/Prescriptions Prescriptions: New acetaminophen 500 mg Tablet 1,000 mg PO TID 14 Days Qty: 84 0RF Rx Instructions: Do not take more than 3000 mg Tylenol in a 24-hour period. aspirin 81 mg Tablet,Chewable 81 mg PO BIDCM 30 Days Qty: 60 0RF Rx Instructions: Take 81 mg aspirin twice daily for 4 weeks postoperatively for DVT prophylaxis. oxycodone 5 mg Tablet 5 - 10 mg PO Q4H PRN PRN (Reason: As Needed For Pain) 7 Days Qty: 52 0RF sennosides-docusate sodium [Stimulant Laxative Plus] 8.6-50 mg Tablet 2 tab PO BID 4 Days Qty: 16 0RF Rx Instructions: Take until first bowel movement, then as needed Continued albuterol sulfate 90 mcg/actuation HFA aerosol inhaler 2 puff inhalation Q4H PRN (Reason: shortness of breath or wheezing) Qty: 8.5 1RF Rx Instructions: administer with spacer fluticasone propionate 220 mcg/actuation HFA aerosol inhaler 2 puff inhalation BID Qty: 12 11RF omeprazole 40 mg capsule,delayed release(DR/EC) 40 mg PO BID Qty: 60 2RF alendronate 70 mg tablet 70 mg PO QWEEK Qty: 12 1RF paroxetine HCl 40 mg tablet 40 mg PO DAILY Qty: 90 1RF levothyroxine 150 mcg tablet 150 mcg PO DAILY Qty: 90 1RF Rx Instructions: Take extra 1/2 tablet (75 mcg) once per week amitriptyline 25 mg tablet 25 mg PO QHS Qty: 90 1RF indapamide 1.25 mg tablet 1.25 mg PO QAM Qty: 90 1RF cholecalciferol (vitamin D3) 1,250 mcg (50,000 unit) capsule 1,250 mcg PO GARZA Qty: 20 2RF atenolol 50 mg tablet 50 mg PO DAILY Qty: 90 1RF Rx Instructions: TAKE 1 TABLET BY MOUTH DAILY FOR BLOOD PRESSURE/HEART RATE Discontinued acetaminophen 500 mg Tablet 1,000 mg PO DAILY PRN (Reason: Pain) Referrals / Follow Up: Physical,Therapy [Other] - 02/05/25 11:00 am Rohith Alexandre MD [Primary Care Provider] - Ty Maynard PA-C [Med Staff - [facility] Practice [facility]] - 02/12/25 10:45 am Disposition Disposition (needs filled in before D/C Order can be placed): Home, Self Care
--- NOTE | 2025-01-31 10:30 | CASEMGMT ---
ALEJANDRA CM into pt room, pt sitting up in chair dressed. Pt states she has a walker at home. Pt has oupt set up on wednesday at [facility] then will go to [facility]. Pt lives with who is able to assist. Pt denies any homegoing needs at this time.
--- NOTE | 2025-01-31 10:55 | PHA.DC.MC.R ---
Pharmacy [facility] has performed discharge medication reconciliation and counseling for this patient. 1. ACETAMINOPHEN 1000MG PO Q8 2. ASPIRIN 81MG PO BIDCM X 4 WEEKS 3. OXYCODONE 5-10MG PO Q4H PRN PAIN 4. SENNA/DOCUSATE 2T PO BID UNTIL FIRST BM, THEN PRN CONSTIPATION The patient's discharge medication list was reviewed for discrepancies and discrepancies were resolved. The patient was counseled on the following discharge medications and changes in medications for homegoing were reviewed. The Reason for Use, instructions for use, and potential side effects were reviewed for all new medications. The patient's questions regarding all of their medications were answered. The patient was able to verbally demonstrate an understanding of their discharge medications. Medications at Discharge Home Medications omeprazole 40 mg capsule,delayed release 40 mg PO BID gerd #60 caps 05/10/24 alendronate 70 mg tablet 70 mg PO QWEEK #12 TABLETS 05/22/24 albuterol sulfate 90 mcg/actuation aerosol inhaler 2 puff inhalation Q4H PRN shortness of breath or wheezing #8.5 grams 08/23/24 paroxetine HCl 40 mg tablet 40 mg PO DAILY #90 tabs 09/18/24 levothyroxine 150 mcg tablet 150 mcg PO DAILY #90 tabs 10/05/24 amitriptyline 25 mg tablet 25 mg PO QHS #90 tabs 10/23/24 indapamide 1.25 mg tablet 1.25 mg PO QAM htn #90 tabs 12/06/24 atenolol 50 mg tablet 50 mg PO DAILY #90 tabs 12/28/24 cholecalciferol (vitamin D3) 1,250 mcg (50,000 unit) capsule 1,250 mcg PO GARZA #20 caps 12/28/24 fluticasone propionate 220 mcg/actuation HFA aerosol inhaler 2 puff inhalation BID #12 grams 01/17/25 acetaminophen 500 mg tablet 1,000 mg (2 x 500 mg) PO TID 14 days #84 tabs 01/31/25 aspirin 81 mg chewable tablet 81 mg PO BIDCM 30 days #60 tabs 01/31/25 oxycodone 5 mg tablet 5 - 10 mg (1 - 2 x 5 mg) PO Q4H PRN PRN As Needed For Pain 7 days #52 tabs 01/31/25 sennosides 8.6 mg-docusate sodium 50 mg tablet (Stimulant Laxative Plus) 2 tab PO BID 4 days #16 tabs 01/31/25
[2025-01-31 11:26] VITALS: BP 123/50; PULSE 63; RESP 18; TEMP 36.6; O2SAT 97
[2025-01-31 12:35] VITALS: BMI 33.1
== END 2025-01-31 14:25 | disposition home or self-care (01) ==
LOC: SDC 15:34 → MS3 15:34
PROVIDERS: Admitting Provider Specialist; PCP Internal Medicine; Referring Provider Specialist; Visit Provider Internal Medicine
PROC: 0SRC0JZ Replacement of Right Knee Joint with Synthetic Substitute, Open Approach (ICD-10-PCS; CPT 27447; principal; 2025-01-30 12:30)
DX: M17.11 Unilateral primary osteoarthritis, right knee (principal); Z79.51 Long term (current) use of inhaled steroids; E03.9 Hypothyroidism, unspecified; Z87.891 Personal history of nicotine dependence; I10 Essential (primary) hypertension; F41.9 Anxiety disorder, unspecified; Z79.83 Long term (current) use of bisphosphonates; E55.9 Vitamin D deficiency, unspecified; Z79.899 Other long term (current) drug therapy; K21.9 Gastro-esophageal reflux disease without esophagitis; M79.7 Fibromyalgia; Z79.890 Hormone replacement therapy; F32.A Depression, unspecified; R06.02 Shortness of breath
CPT/HCPCS: 27447; S2900; 01402; 36415; 73560; 80048; 82962; 85027; 88304; 88305; 88311; 94640; 94668; 94762; 96361; 96365; 96366; 97162; 97166; 99221; C1776; G0378

== ENCOUNTER 2025-03-05 15:51 | Outpatient (CLI) | payer MEDICARE, SELFPAY ==
[2025-03-05 17:15] LABS: Anion Gap 11 (5-15); BUN 20 mg/dL (4-19); BUN/Creat Ratio 18.3 RATIO (10-20); Calcium,Total 10.2 mg/dL (7.6-11.0); Carbon Dioxide 25.7 mmol/L (21.0-32.0); Chloride 101 mmol/L (98-108); Glucose 100 mg/dL (70-99); Potassium 4.3 mmol/L (3.3-5.1)
--- OUTSIDE RECORDS SUMMARY | 2025-03-05 22:49 | XMS RPT_ITS | CCD ---
Author Organization [facility] Care Team Providers Care Medical Anthropology Director Name Role Phone MARLEY VASQUEZ F Unavailable Unavailable RICHMOND HENRIQUEZ Unavailable Unavailable RAMARLEY KWOK F Unavailable Unavailable MARLEY VASQUEZ F Unavailable Unavailable Dave Fournier Unavailable Unavailable Dave Fournier Unavailable Unavailable Richmond Ricks Unavailable Unavailable Dr. Steve Alexandre Primary Care Provider [phone] Baldomero, Dr. Newberry Attending Provider [phone] Baldomero, Dr. Newberry Referring Provider [phone] CHEVY Woods Attending Provider UnavailDr. Steve Cage Primary Care Provider 1([phone]) Dr. Steve Alexandre Attending Provider [phone])2 Baldomero, Dr. Newberry Referring Provider [phone])2 [place] Woods Attending Provider Dr. Steve Alexis Primary Care Provider 1(33 0) Dr. Steve Alexandre Referring Provider [phone])2 Dr. Steve Alexandre Attending Provider [phone])2 Dr. Steve Alexandre Primary Care Provider 1(33 0) Dr. Steve Alexandre Referring Provider [phone])2 Dr. Km Alberts Emergency Provider Dr. Abraham Yepez Admit Provider [phone] Dr. Abraham Yepez Attending Provider Dr. Abraham Yepez Other Provider Baldomero, Dr. Newberry Primary Care Provider [phone] Baldomero, Dr. Newberry Attending Provider [phone])2 Baldomero, Dr. Newberry Referring Provider [phone])2 Baldomero, Dr. Nweberry Primary Care Provider [phone] Baldomero, Dr. Newberry Attending Provider [phone])2 Baldomero, Dr. Newberry Referring Provider [phone])2 BALDOMERO, STEVE [place] Primary Care Unav RADHA Sutton Attending Unavailable Steve Alexandre MD Primary Care Provider [phone] Baldomero SAL, Dr. Newberry Primary Care Provider Dr. Liam Engle MD Attending Provider Dr. Liam Engle MD Referring Provider Baldomero SAL, Dr. Newberry Referring Provider [phone] Dr. Thai Hurst DO Attending Provider [phone] Thai Hurst DO Referring Provider Dr. Kalyan Adler MD Attending Provider Dr. Yordan Shen MD Attending Provider Dr. Chester Siegel MD Attending Provider Dr. Thai Hurst DO Other Provider Dr. Steve Alexandre MD Attending Provider [phone] Dina Theodore Attending Provider Otilia Reed Attending Provider Dr. Steve Alexandre MD Primary Care Provider Dr. Yordan Shen MD Referring Provider MATT LEMA MD Primary Care Unavailable MATT LEMA MD Attending Unavailable STEVE ALXEANDRE MD Consulting Unavailable MATT LEMA MD Admitting Unavailable PROVIDER, UNKNOWN Consulting Unavailable MATT LEMA MD Attending Unavailable ANGELA JACOBS MD Referring Unavailable STEVE ALEXANDRE MD Consulting Unavailable MATT LEMA MD Admitting Unavailable MATT LEMA MD Primary Care Unavailable PROVIDER, UNKNOWN Consulting Unavailable Baldomero SAL, Dr. Newberry Primary Care Provider Dr. Thai Hurst DO Attending Provider [phone] Baldomero SAL, Dr. Newberry Referring Provider Delvis BURNER OPERATOR-CDina Referring Provider Ricci Sellers Attending Provider BRITTANY ALEXANDREBE B Primary Care Unavailable PANDA MCGUIRE II Attending Unavailabl ivan Alexandre MD, Dr. Newberry Primary Care Provider Baldomero SAL, Dr. Newberry Referring Provider [phone] Dr. Yordan Shen MD Attending Provider Dr. Thai Hurst DO Attending Provider [phone] Rome SAL, Dr. Martel Admit Provider [phone] Rome SAL, Dr. Martel Referring Provider Rome SAL, Dr. Martel Other Provider Dr. Tom Birmingham DO Other Provider Aimee SAL, Dr. Matt Bruno Other Provider Dr. Richmond Ricardo MD Attending Provider Unavaila ble Dr. Tom Birmingham DO Attending Provider Dr. Richmond Ricardo MD Other Provider Unavailable Oleghe, Efewongbe Primary Care Unavailable Kalyan Adler Attending Unavailable Thai Hurst Attending Unavailable Dina Edmondson Referring Unavailable Oleghe, Efewongbe Primary Care Unavailable Friend, Franco Consulting Unavailable Friend, Franco Attending Unavailable Friend, Franco Referring Unavailable Oleghe, Efewongbe Primary Care Unavailable Rome, Matt Admitting Unavailable Tom Birmingham Consulting Unavailable Tom Birmingham Attending Unavailable Rome, Matt Referring Unavailable Oleghe, Efewongbe Primary Care Unavailable Matt Yu Consulting Unavailable Roem Matt Consulting Unavailable Otilia Cameron Attending Unavailable Oleghe, Efewongbe Referring Unavailable Oleghe, Efewongbe Primary Care Unavailable Oleghe, Efewongbe Referring Unavailable Oleghe, Efewongbe Attending Unavailable Oleghe, Efewongbe Primary Care Unavailable Anel Franco Attending Unavailable Friend, Franco Referring Unavailable Oleghe, Efewongbe Primary Care Unavailable Liam Engle Attending Unavailable Liam Engle Referring Unavailable Oleghe, Efewongbe Primary Care Unavailable Oleghe, Efewongbe Attending Unavailable Oleghe, Efewongbe Primary Care Unavailable Thai Hurst Attending Unavailable Oleghe, Efewongbe Referring Unavailable Oleghe, Efewongbe Primary Care Unavailable Oleghe, Efewongbe Attending Unavailable Oleghe, Efewongbe Referring Unavailable Oleghe, Efewongbe Primary Care Unavailable Oleghe, Efewongbe Attending Unavailable Oleghe, Efewongbe Referring Unavailable Oleghe, Efewongbe Primary Care Unavailable Oleghe, Efewongbe Referring Unavailable Dina Edmondson Attending Unavailable Oleghe, Efewongbe Primary Care Unavailable Oleghe, Efewongbe Referring Unavailable Oleghe, Efewongbe Primary Care Unavailable Yordan Shen Attending Unavailable Oleghe, Efewongbe Referring Unavailable Ricci Sellers Attending Unavailable Oleghe, Efewongbe Primary Care Unavailable Oleghe, Efewongbe Primary Care Unavailable Ty Odom Attending Unavailable Dina Edmondson Attending Unavailable Dina Edmondson Referring Unavailable Oleghe, Efewongbe Primary Care Unavailable Richmond Ricardo Attending Unavailable Oleghe, Efewongbe Primary Care Unavailable Tom Birmingham Consulting Unavailable Rome, Matt Admitting Unavailable Rome, Matt Referring Unavailable Matt Yu Consulting Unavailable Rome, Matt Consulting Unavailable Otilia Cameron Attending Unavailable Oleghe, Efewongbe Referring Unavailable Oleghe, Efewongbe Primary Care Unavailable Oleghe, Efewongbe Referring Unavailable Oleghe, Efewongbe Primary Care Unavailable ShenIshmaelag Attending Unavailable Oleghe, Efewongbe Primary Care Unavailable Chester Siegel Attending Unavailable Otilia Cameron Attending Unavailable Oleghe, Efewongbe Referring Unavailable Oleghe, Efewongbe Primary Care Unavailable Otilia Cameron Attending Unavailable Otilia Cameron Referring Unavailable Oleghe, Efewongbe Primary Care Unavailable Oleghe, Efewongbe Referring Unavailable Oleghe, Efewongbe Attending Unavailable Oleghe, Efewongbe Primary Care Unavailable Song Hurstk Attending Unavailable Brown, Thai Referring Unavailable Oleghe, Efewongbe Primary Care Unavailable Oleghe, Efewongbe Primary Care Unavailable Yordan Shen Attending Unavailable Shen Yordan Referring Unavailable Oleghe, Efewongbe Referring Unavailable Dina Edmondson Attending Unavailable Oleghe, Efewongbe Primary Care Unavailable Richmond Ricardo Attending Unavailable Richmond Ricardo Consulting Unavailable Brown Thai Consulting Unavailable Song Hurstk Attending Unavailable Brown, Thai Referring Unavailable Oleghe, Efewongbe Primary Care Unavailable Oleghe, Efewongbe Referring Unavailable Oleghe, Efewongbe Primary Care Unavailable Oleghe, Efewongbe Attending Unavailable Dina Edmondson Attending Unavailable Dina Edmondson Referring Unavailable Oleghe, Efewongbe Primary Care Unavailable Oleghe, Efewongbe Referring Unavailable Oleghe, Efewongbe Primary Care Unavailable Oleghe, Efewongbe Attending Unavailable Oleghe, Efewongbe Referring Unavailable Oleghe, Efewongbe Attending Unavailable Oleghe, Efewongbe Primary Care Unavailable Oleghe, Efewongbe Attending Unavailable Oleghe, Efewongbe Referring Unavailable Oleghe, Efewongbe Primary Care Unavailable Otilia Cameron Attending Unavailable Oleghe, Efewongbe Referring Unavailable Oleghe, Efewongbe Primary Care Unavailable ESHENAURNIDHI Referring Unavail able ESHENAUR, NIDHI GUDINO Referring Unavail able ESHENAUR, NIDHI GUDINO Referring Unavail able ESHENAUR, NIDHI GUDINO Referring Unavail able ESHENAUR, NIDHI GUDINO Referring Unavail able ESHENAUR, NIDHI GUDINO Referring Unavail able ESHENAUNIDHI Blount Referring Unavail able ESHENAURNIDHI Referring Unavail able Allergies Allergy Classification Reported Allergen(s) Allergy Type Date of Onset Reaction(s) Facility (18 sources) Ciprofloxacin; Translations: [CIPROFLOXACIN] Drug Allergy 1 Hives [facility] (1 source) dairy products Allergy to substance 2 Food Allergy [facility] Work Phone: (14 sources) cow milk allergenic extract Drug Allergy 2 Food Allergy [facility] (2 sources) Seasonal allergy; Translations: [SEASONAL ALLERGIES] Allergy to substance 5 Other: See Comments [facility] (1 source) Ciprofloxacin Drug Allergy 5 [facility] (1 source) Milk Drug allergy (disorder) 5 [facility] (1 source) ALLERGIES NOT ON FILE; Translations: [ALLERGIES NOT ON FILE] Propensity to adverse reactions (disorder) [facility] 2 Repository Medications Current Medications Medication Drug Class(es) Dates Sig (Normalized) Sig (Original) acetaminophen 500 mg oral tablet (13 sources) Start: 01-31-2025 Acetaminophen 500 mg Tablet Active 1000 mg PO THREE TIMES A DAY 84 14 0 January 31, 2025 12:00am Do not take more than 3000 mg Tylenol in a 24-hour period. Start: 09-14-2022 End: 01-31-2025 take 2 tablets by mouth once daily as needed for pain Acetaminophen 500 mg Tablet Discontinued 1000 mg PO DAILY as needed for Pain September 14, 2022 1:00am January 31, 2025 9:37am Start: 09-14-2022 take 1000 mg by mout h once daily Acetaminophen Active 1000 MG PO DAILY September 14, 2022 1:00am [id number] 200 actuat albuterol 0.09 mg/actuat metered dose inhaler (8 sources) beta2-Adrenergic Agonist Start: 08-23-2024 Albuterol Sulfate 90 mcg/actuation HFA aerosol inhaler Active 2 NMA INHALATION Q4H as needed for shortness of breath or wheezing 8.5 1 August 23, 2024 1:00am administer with spacer aspirin 81 mg chewable tablet (1 source) Platelet Aggregation Inhibitor, Nonsteroidal Anti-inflammatory Drug Start: 01-31-2025 take 1 tablet by mouth twice daily at mealtime Aspirin 81 mg Tablet,Chewable Active 81 mg PO TWICE DAILY WITH MEALS 60 30 0 January 31, 2025 12:00am Take 81 mg aspirin twice daily for 4 weeks postoperatively for DVT prophylaxis. benoxinate hydrochloride 4 mg/ml / fluorescein sodium 3 mg/ml ophthalmic solution (2 sources) Diagnostic Dye Start: 06-21-2024 End: 06-22-2024 fluorescein-benoxin ate 0.3-0.4 % 1 Drop (FLURESS) Start: 06-21-2024 End: 06-22-2024 1 Drop, BOTH EYES, DIRECT ED, Starting on Wed06/21/24 at 1430, Until Wed06/22/24 at 0229, Administer for applanation tonometry. In the event of a Fluress shortage, administer [place]-Fluor 1 drop into both eyes as directed for applanation tonometry docusate sodium 50 mg / sennosides, long-term 8.6 mg oral tablet (1 source) Start: 01-31-2025 Sennosides-Doc usate Sodium (Stimulant Laxative Plus) 8.6-50 mg Tablet Active 2 {tbl} PO TWICE A DAY 16 4 0 January 31, 2025 12:00am Take until first bowel movement, then as needed Fluticasone Propionate 220 mcg/actuation HFA aerosol inhaler (3 sources) Start: 01-17-2025 Fluticasone Pr opionate 220 mcg/actuation HFA aerosol inhaler Active 2 NMA INHALATION TWICE A DAY 12 January 17, 2025 12:00am Cough Cough, unspecified Start: 01-17-2025 Fluticasone Pr opionate 220 mcg/actuation HFA aerosol inhaler Active 2 NMA INHALATION TWICE A DAY January 17, 2025 12:00am levothyroxine sodium 0.15 mg oral tablet (20 sources) l-Thyroxine Start: 01-14-2024 End: 10-05-2024 take 0.5 tablet by mouth every week Levothyroxine 150 mcg tablet Active 150 ug PO DAILY 90 October 05, 2024 5:46pm Take extra 1/2 tablet (75 mcg) once per week Start: 12-25-2020 End: 01-14-2024 take 1 tablet by mouth once daily Levothyroxine 150 mcg tablet Discontinued 150 ug PO DAILY 90 1 October 15, 2023 9:06am January 14, 2024 4:20pm Start: 11-26-2020 End: 12-25-2020 take 1 tablet by mouth once daily Levothyroxine 175 mcg tablet Discontinued 175 ug PO DAILY November 26, 2020 12:00am December 25, 2020 1:03pm Start: 08-23-2019 End: 11-26-2020 Levothyroxine (Synthroid) 12 5 mcg tablet Discontinued 150 ug PO DAILY August 23, 2019 3:08pm November 26, 2020 4:19pm thyroid Start: 11-17-2018 End: 08-23-2019 take 1 tablet by mouth once daily Levothyroxine (Synthroid) 125 mcg tablet Discontinued 125 ug PO DAILY November 17, 2018 12:00am August 23, 2019 3:08pm Start: 09-14-2014 levothyroxine (SYNTHROID) 100 mcg tablet 09/14/2014 Active oxyCODONE hydrochloride 5 mg oral tablet (1 source) Opioid Agonist Start: 01-31-2025 take 5-10 mg by mouth every four hours as needed for pain Oxycodone 5 mg Tablet Active 5 - 10 mg PO EVERY 4 HOURS NEEDED as needed for As Needed For Pain 52 7 0 January 31, 2025 Status post right knee replacement Presence of right artificial knee joint tropicamide 10 mg/ml ophthalmic solution (2 sources) Anticholinergic Start: 06-21-2024 End: 06-22-2024 tropicamide 1 % 1 Drop (MYDRIACYL) Start: 06-21-2024 End: 06-22-2024 1 Drop, BOTH EYES, DIRECT ED, Starting on Wed06/21/24 at 1430, Until Lanny 06/22/24 at 0229, Administer for dilation Completed/Discontinued Medications Medication Drug Class(es) Dates Sig (Normalized) Sig (Original) acetaminophen 325 mg / HYDROcodone bitartrate 5 mg oral tablet (15 sources) Opioid Agonist Start: 09-18-2019 End: 09-20-2019 Hydrocodone-Acetamino phen 1 TABLET tablet Discontinued 1 {tbl} PO EVERY 6 HOURS NEEDED as needed for Pain 8 2 0 September 18, 2019 September 19, 2019 1:00am September 20, 2019 1:08am Postoperative pain Other acute postprocedural pain Start: 09-18-2019 End: 09-20-2019 take 1 tablet by mouth every six hours as needed Hydrocodone-Acetaminophen Discontinued 1 TABLET PO EVERY 6 HOURS NEEDED 8 2 September 18, 2019 September 20, 2019 1:08am alendronic acid 70 mg oral tablet (20 sources) Bisphosphonate Start: 09-03-2021 End: 05-22-2024 take 1 tablet by mouth every week Alendronate 70 mg tablet Discontinued 70 mg PO EVERY WEEK 12 0 November 04, 2023 9:38am May 22, 2024 4:03pm Start: 08-23-2019 End: 12-02-2020 take 1 tablet by mouth every week Alendronate (Fosamax) 70 mg tablet Discontinued 70 mg PO EVERY WEEK August 23, 2019 1:00am December 02, 2020 2:28pm bone health amitriptyline hydrochloride 25 mg oral tablet (20 sources) Tricyclic Antidepressant Start: 12-02-2020 End: 10-23-2024 take 1 tablet by mouth at bedtime Amitriptyline 25 mg tablet Discontinued 25 mg PO AT BEDTIME 90 April 20, 2024 4:29pm October 23, 2024 4:37pm atenolol 50 mg oral tablet (20 sources) beta-Adrenergic Demetria Start: 11-17-2018 End: 12-28-2024 take 1 tablet by mouth once daily Atenolol 50 mg tablet Discontinued 50 mg PO DAILY 90 1 June 12, 2024 6:05pm December 28, 2024 5:13pm TAKE 1 TABLET BY MOUTH DAILY FOR BLOOD PRESSURE/HEART RATE baclofen 10 mg oral tablet (20 sources) gamma-Aminobutyric Acid-ergic Agonist Start: 04-08-2022 End: 03-12-2023 take 1 tablet by mouth three times daily as needed for muscle spasms Baclofen 10 mg tablet Discontinued 10 mg PO THREE TIMES A DAY as needed for muscle spasm 90 2 April 08, 2022 3:55pm March 12, 2023 10:24am 60 actuat budesonide 0.09 mg/actuat dry powder inhaler (15 sources) Corticosteroid Start: 11-17-2018 End: 11-24-2018 take 90 ug by inhalation twice daily Budesonide (Pulmicort Flexhaler) 90 mcg/actuation aerosol powdr breath activated Discontinued 2 NMA INHALATION TWICE A DAY November 17, 2018 12:00am November 24, 2018 1:00pm calcium carbonate 1250 mg oral tablet (15 sources) Start: 09-04-2019 End: 03-03-2021 take 1 tablet by mouth twice daily at mealtime Calcium Carbonate 500 MG tablet Discontinued 500 mg PO TWICE DAILY WITH MEALS September 04, 2019 1:00am March 03, 2021 10:01am supplement cephalexin 500 mg oral capsule (20 sources) Cephalosporin Antibacterial Start: 04-20-2022 End: 07-17-2022 take 1 capsule by mouth twice daily Cephalexin 500 mg capsule Discontinued 500 mg PO TWICE A DAY 10 0 April 20, 2022 12:00am July 17, 2022 1:53pm Start: 03-03-2021 End: 03-13-2021 take 1 capsule by mouth every twelve hours Cephalexin 500 mg capsule Discontinued 500 mg PO Q12H 20 10 March 03, 2021 12:00am March 12, 2021 12:00am March 13, 2021 12:01am cetirizine hydrochloride 10 mg oral capsule (16 sources) Histamine-1 Receptor Antagonist Start: 11-17-2018 End: 03-03-2021 take 1 capsule by mouth once daily Cetirizine (Zyrtec) 10 mg capsule Discontinued 10 mg PO DAILY 0 November 17, 2018 12:00am March 03, 2021 10:01am allergy cholecalciferol 1.25 mg oral capsule (20 sources) Vitamin D Start: 12-03-2020 End: 12-28-2024 take 1 capsule by mouth every week Cholecalciferol (Vitamin D3) 1,250 mcg (50,000 unit) capsule Discontinued 1250 ug PO EVERY WEEK 10 3 September 11, 2021 6:01pm September 14, 2022 11:32am Cholecalciferol (Vitamin D3) (Vitamin D3) 5,000 UNIT capsule (15 sources) Start: 09-04-2019 End: 03-03-2021 take 1 capsule by mouth once daily Cholecalciferol (Vitamin D3) (Vitamin D3) 5,000 UNIT capsule Discontinued 5000 U PO DAILY September 04, 2019 1:00am March 03, 2021 10:02am supplement Start: 09-04-2019 End: 03-03-2021 take 1 capsule [...] tablet Discontinued 1.25 mg PO EVERY MORNING 90 1 November 06, 2024 4:35pm December 06, 2024 11:11pm htn meclizine hydrochloride 12.5 mg oral tablet (11 sources) Antiemetic Start: 09-15-2022 End: 10-19-2022 take 1 tablet by mouth four times daily as needed for dizziness Meclizine 12.5 mg Tablet Discontinued 12.5 mg PO 4 TIMES DAILY NEEDED as needed for DIZZINESS/VERTIGO 30 0 September 15, 2022 1:00am October 19, 2022 10:31am meloxicam 15 mg oral tablet (10 sources) Nonsteroidal Anti-inflammatory Drug Start: 10-19-2022 End: 03-12-2023 take 1 tablet by mouth once daily Meloxicam 15 mg tablet Discontinued 15 mg PO DAILY October 19, 2022 12:00am March 12, 2023 10:24am Mometasone (Asmanex Hfa) 200 mcg/actuation HFA aerosol inhaler (7 sources) Start: 11-15-2024 End: 01-04-2025 Mometasone (Asmanex Hfa) 200 mcg/actuation HFA aerosol inhaler Discontinued 2 NMA INHALATION TWICE A DAY 13 2 November 15, 2024 12:00am January 04, 2025 3:53pm Start: 11-15-2024 End: 01-04-2025 Mometasone (Asmanex Hfa) 200 mcg/actuation HFA aerosol inhaler Discontinued 2 NMA INHALATION TWICE A DAY November 15, 2024 12:00am January 04, 2025 3:53pm Start: 11-15-2024 Mometasone (As manex Hfa) 200 mcg/actuation HFA aerosol inhaler Active 2 NMA INHALATION TWICE A DAY November 15, 2024 12:00am montelukast 10 mg oral tablet (15 sources) Leukotriene Receptor Antagonist Start: 11-17-2018 End: 08-23-2019 take 1 tablet by mouth once daily in the evening Montelukast (Singulair) 10 mg tablet Discontinued 10 mg PO EVERY EVENING November 17, 2018 12:00am August 23, 2019 3:07pm nitrofurantoin, macrocrystals 25 mg / nitrofurantoin, monohydrate 75 mg oral capsule (7 sources) Nitrofuran Antibacterial Start: 11-22-2024 End: 01-04-2025 take 1 capsule by mouth twice daily at mealtime Nitrofurantoin Monohyd/M-Cryst (Macrobid) 100 mg capsule Discontinued 100 mg PO TWICE A DAY 14 0 November 22, 2024 12:00am January 04, 2025 3:53pm must administer with a meal/food omeprazole 40 mg delayed release oral capsule (20 sources) Proton Pump Inhibitor Start: 08-31-2019 End: 05-10-2024 Omeprazole 40 mg capsule,delayed release(DR/EC) Discontinued 40 mg PO 1700 90 March 16, 2023 4:25pm May 10, 2024 3:06pm gerd Start: 08-23-2019 End: 03-16-2023 take 1 capsule by mouth once daily Omeprazole 40 mg capsule,delayed release(DR/EC) Discontinued 40 mg PO DAILY 30 0 August 23, 2019 1:00am August 31, 2019 3:06pm PARoxetine hydrochloride 40 mg oral tablet (20 sources) Serotonin Reuptake Inhibitor Start: 01-24-2021 End: 09-18-2024 take 1 tablet by mouth once daily Paroxetine Hcl 40 mg tablet Discontinued 40 mg PO DAILY 90 1 March 09, 2024 9:48am September 18, 2024 [...] chloride 20 meq extended release oral tablet (15 sources) Start: 12-03-2020 End: 01-01-2022 take 1 tablet by mouth twice daily Potassium Chloride 20 mEq tablet extended release Discontinued 20 meq PO TWICE A DAY 60 2 December 03, 2020 12:00am January 01, 2022 2:14pm triamcinolone acetonide 0.055 mg/actuat metered dose nasal spray (15 sources) Corticosteroid Start: 11-17-2018 End: 11-24-2018 Triamcinolone Acetonide (Nasacort) 55 mcg aerosol,spray Discontinued 2 NMA INTRANASAL DAILY November 17, 2018 12:00am November 24, 2018 1:00pm Start: 11-17-2018 End: 11-24-2018 Triamcinolone Acetonide (Jorge acort) 55 mcg aerosol,spray Discontinued 2 SPRAY INTRANASAL DAILY November 17, 2018 12:00am November 24, 2018 1:00pm Umeclidinium (15 sources) Anticholinergic Start: 11-17-2018 End: 11-24-2018 take [...] on above: ON MED Biliary tract disease (15 sources) Calculus of gallbladder with cholecystitis; Translations: [Calculus of gallbladder with chronic cholecystitis without obstruction] 09-25-2019 Episodic Blindness and vision defects (5 sources) Bilateral regular astigmatism; Translations: [Regular astigmatism, bilateral] Onset: 6 06-21-2024 Episodic Cancer of breast (1 source) Malignant tumor of breast ; Translations: [Malignant neoplasm of unspecified site of unspecified female breast] Onset: 6 02-10-2024 Chronic Cancer of breast (15 sources) History of malignant neoplasm of breast; [...] IN LAST F EW WEEKS Conduction disorders (14 sources) Right bundle branch block; Translations: [Unspecified right bundle-branch block] 09-14-2022 Chronic Esophageal disorders (20 sources) Eosinophilic esophagitis; Translations: [Eosinophilic esophagitis] Onset: 4 Chronic Essential hypertension (20 sources) Benign hypertension; Translations: [Essential (primary) hypertension] Onset: 5 Chronic Headache, including migraine (1 source) Headache; Translations: [Headache] Onset: 8 Episodic Headache, including migraine (1 source) Headache, including migraine Onset: 8 Joint disorders and dislocations; trauma-related (1 source) Derangement of knee; Translations: [Unspecified internal derangement of unspecified knee] Onset: 6 02-10-2024 Chronic Mood disorders (15 sources) Depressive disorder; Translations: [Depression] 09-05-2019 Chronic Comment on above: ON MED Nonspecific chest pain (15 sources) Chest pain; Translations: [Chest pain, unspecified] 09-25-2019 Episodic Nutritional deficiencies (15 sources) Vitamin D deficiency; Translations: [Vitamin D deficiency, unspecified] 12-02-2020 Chronic Osteoarthritis (20 sources) Arthritis; Translations: [Unspecified osteoarthritis, unspecified site] Onset: 5 11-26-2020 Chronic Other aftercare (2 sources) Aftercare following joint replacement surgery; Translations: [Aftercare following joint replacement surgery] Onset: 5 Chronic Other and unspecified benign neoplasm (2 sources) Nevus of choroid; 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] Onset: 6 06-21-2024 Episodic Other bone disease and musculoskeletal deformities (20 sources) Osteopenia; Translations: [Other specified disorders of bone density and structure, unspecified site] 09-03-2021 Episodic Other bone disease and musculoskeletal deformities (5 sources) Other specified disorders of bone density and structure, unspecified site; Translations: [Disorder of bone and cartilage, unspecified] Episodic Other circulatory disease (12 sources) H/O: hypertension; Translations: [Personal history of other diseases of the circulatory system] 09-14-2022 Episodic Other circulatory disease (2 sources) Personal history of other diseases of the circulatory system; Translations: [Personal history of other diseases of circulatory system] 09-14-2022 Episodic Other connective tissue disease (2 sources) History of total knee arthroplasty; Translations: [Presence of right artificial knee joint] 01-30-2025 Chronic Other connective tissue disease (3 sources) Presence of right artificial knee joint; Translations: [Presence of right artificial knee joint] Onset: 5 Chronic Other connective tissue disease (15 sources) History of cervical spine fusion; Translations: [Arthrodesis status] 09-05-2019 Episodic Other connective tissue disease (15 sources) Fibromyalgia; Translations: [Fibromyalgia] 12-02-2020 Episodic Other connective tissue disease (2 sources) Pain in right leg; Translations: [Pain in right leg] Onset: 4 Episodic Other eye disorders (2 sources) Bilateral vitreous floaters; Translations: [Other vitreous opacities, bilateral] Onset: 6 06-21-2024 Chronic Other fractures (15 sources) Compression fracture of thoracic spine; Translations: [Wedge compression fracture of unspecified thoracic vertebra, initial encounter for closed fracture] 11-26-2020 Episodic Other fractures (19 sources) Fracture of twelfth thoracic vertebra; Translations: [Wedge compression fracture of T11-T12 vertebra, initial encounter for closed fracture] 09-22-2024 Episodic Other liver diseases (8 sources) Elevated liver enzymes level; Translations: [Abnormal levels of other serum enzymes] 11-05-2024 Episodic Other liver diseases (1 source) Abnormal levels of other serum enzymes; Translations: [Abnormal levels of other serum enzymes] Onset: 5 Episodic Other lower respiratory disease (20 sources) Dyspnea; Translations: [Shortness of breath] 12-29-2023 Episodic Other lower respiratory disease (5 sources) Cough; Translations: [Cough] 01-17-2025 Episodic Other lower respiratory disease (2 sources) [...] conditions (not mental disorders or infectious disease) (9 sources) CT of chest abnormal; Translations: [Abnormal findings on diagnostic imaging of other specified body structures] Onset: 5 04-01-2024 Chronic Other screening for suspected conditions (not mental disorders or infectious disease) (16 sources) Electrocardiogram abnormal; Translations: [Abnormal electrocardiogram [ECG] [EKG]] Onset: 6 09-25-2019 Episodic Residual codes; unclassified (15 sources) Hypersomnia; Translations: [Hypersomnia, unspecified] 09-25-2019 Chronic Residual codes; unclassified (9 sources) Other specified postprocedural states; Translations: [Status post breast lumpectomy] 09-05-2019 Episodic Thyroid disorders (20 sources) Hypothyroidism; Translations: [Hypothyroidism, unspecified] Onset: 6 Chronic Unclassified (1 source) New Patient / [id number]() Onset: 8 Unclassified (1 source) Cough, unspecified; Translations: [Cough, unspecified] Onset: 5 Urinary tract infections (17 sources) Cystitis; Translations: [Cystitis, unspecified without hematuria] Onset: 4 03-03-2021 Episodic Past or Other Problems Problem Classification Problem Date Documented Da te Episodic/Chronic Genitourinary symptoms and ill-defined conditions (11 sources) Dysuria; Translations: [Dysuria] Onset: 11-25-2024 Episodic Other and unspecified benign neoplasm (1 [...] unspecified; Translations: [Dysphagia, unspecified] Onset: 05-31-2024 Episodic Spondylosis; intervertebral disc disorders; other back problems (20 sources) Cervico-occipital neuralgia; Translations: [Occipital neuralgia] Onset: 03-10-2024 Episodic Unclassified (1 source) New Patient; Translations: [New Patient] Onset: 02-23-2018 Results Test Name Value Interpretation Reference Range Facility Anion gap in Serum or Plasma Ordered By: Matt Lema on 01-31-2025 Anion gap [Moles/Vol] 12 mmol/L - [facility] BUN/creatinine ratioOrdered By: Matt Lema on 01-31-2025 Urea nitrogen/Creatinine [Mass ratio] 18.2 mg/mg - [facility] Basic Metabolic Profile (BMP )on 01-31-2025 BUN/CRE 18.2 RATIO Normal 10-20 [facility] Comment on above: Performed By: #### L 100.0500, L500.2500 #### [facility] [address] [place], [address] Calcium [Mass/Vol] 8.8 mg/dL Normal 7.6-11.0 [facility] Comment on above: Performed By: #### L 100.0500, L500.2500 #### [facility] [address] [place], [address] Chloride [Moles/Vol] 103 mmol/L Normal 98-108 [facility] Comment on above: Performed By: #### L 100.0500, L500.2500 #### [facility] [address] [place], [address] CO2 [Moles/Vol] 20.5 mmol/L Low 21.0-32.0 [facility] Comment on above: Performed By: #### L 100.0500, L500.2500 #### [facility] [address] [place], [address] Creatinine [Mass/Vol] 0.92 mg/dL Normal 0.70-1.20 [facility] Comment on above: Performed By: #### L 100.0500, L500.2500 #### [facility] [address] [place], [address] ECRCL 59.35 ml/min Normal 50-250 [facility] Comment on above: Performed By: #### L 100.0500, L500.2500 #### [facility] [address] [place], [address] GAP 12 Normal 5-15 [facility] Comment on above: Performed By: #### L 100.0500, L500.2500 #### [facility] [address] [place], [address] GFR/1.73 sq M.predicted among non-blacks MDRD (S/P/Bld) [Vol rate/Area] 66 mL/min/{1.73_m2} Normal >60 [facility] Comment on above: Result Comment: mL/m in/1.73m2 CKD-EPI Creatinine Equation (2020) Performed By: #### L 100.0500, L500.2500 #### [facility] [address] [place], [address] Glucose [Mass/Vol] 174 mg/dL High 70-99 [facility] Comment on above: Performed By: #### L 100.0500, L500.2500 #### [facility] [address] [place], [address] Potassium [Moles/Vol] 4.2 mmol/L Normal 3.3-5.1 [facility] Comment on above: Result Comment: Hemo lysis present, Results??could be affected. ?? Performed By: #### L 100.0500, L500.2500 #### [facility] [address] [place], [address] Sodium [Moles/Vol] 135 mmol/L Normal 133-145 [facility] Comment on above: Performed By: #### L 100.0500, L500.2500 #### [facility] [address] [place], [address] Urea nitrogen [Mass/Vol] 17 mg/dL Normal 4-19 [facility] Comment on above: Performed By: #### L 100.0500, L500.2500 #### [facility] [address] [place], [address] CBC-Complete Blood Cnt No Di ffon 01-31-2025 Erythrocyte distribution width (RBC) [Ratio] 13.8 % Normal 11.6-14.6 [facility] Comment on above: Performed By: #### L 100.0500, L500.2500 #### [facility] [address] [place], [address] Hematocrit (Bld) [Volume fraction] 35.9 % Low 37-47 [facility] Comment on above: Performed By: #### L 100.0500, L500.2500 #### [facility] [address] [place], [address] Hemoglobin (Bld) [Mass/Vol] 12.0 g/dL Normal 12.0-15.0 [facility] Comment on above: Performed By: #### L 100.0500, L500.2500 #### [facility] [address] [place], [address] MCH (RBC) [Entitic mass] 27.3 pg Normal 27.0-32.0 [facility] Comment on above: Performed By: #### L 100.0500, L500.2500 #### [facility] [address] [place], [address] MCHC (RBC) [Mass/Vol] 33.4 g/dL Normal 32-36 [facility] Comment on above: Performed By: #### L 100.0500, L500.2500 #### [facility] [address] [place], [address] MCV (RBC) [Entitic vol] 81.8 fL Normal 81-99 [facility] Comment on above: Performed By: #### L 100.0500, L500.2500 #### [facility] [address] [place], [address] Platelet mean volume (Bld) [Entitic vol] 11.2 fL Normal 6.2-12.0 [facility] Comment on above: Performed By: #### L 100.0500, L500.2500 #### [facility] [address] [place], [address] Platelets (Bld) [#/Vol] 207 10*3/uL Normal 150-450 [facility] Comment on above: Performed By: #### L 100.0500, L500.2500 #### [facility] [address] [place], [address] RBC (Bld) [#/Vol] 4.39 10*6/uL Normal 4.2-5.4 [facility] Comment on above: Performed By: #### L 100.0500, L500.2500 #### [facility] [address] [place], [address] RDW SD 40.9 fl Normal 35.1-43.9 [facility] Comment on above: Performed By: #### L 100.0500, L500.2500 #### [facility] [address] [place], [address] WBC (Bld) [#/Vol] 12.5 10*3/uL High 4.4-11.0 [facility] Comment on above: Performed By: #### L 100.0500, L500.2500 #### [facility] [address] [place], [address] Carbon dioxide, total [Moles /volume] in Central venous bloodOrdered By: Matt Lema on 01-31-2025 CO2 [Moles/Vol] 20.5 mmol/L Low 21.0-32.0 [facility] Chloride assayOrdered By: St santiago Lema on 01-31-2025 Chloride [Moles/Vol] 103 mmol/L 98-108 [facility] Discharge Instructionon Discharge Instruction [facility] Medical Records Department [address] [place] [address] Instructions for Home/Discharge Instructions 01/31/25 0935 MR#: [id number] Acct: [id number] Name: ALMA XIONG Rep #: [id number] : 1950 74 From: Ty REECE PA-C PCP: Dr. Steve Alexandre MD Status:ADM RANDOLPH Discharge Instructions Diet Discharge Diet: No restrictions DC O2, CPAP, BIPAP needs Home O2 Discharge instructions: No Dressing / Incision Discharge Activity: May Not Drive (No driving for 6 weeks postoperatively. Must also be off all narcotics and able to walk 100 feet without the use of cane or walker.) May shower in (days): 1 (Please turn dressing away from water. Okay to get wet as long as dressing is intact to skin.) Ice area for (Minutes): 20 (Every 1-2 hours while awake. Please place barrier between the skin and ice pack.) Weight Bearing Status: Weight bearing as tolerated Keep extremity elevated above heart level: Operative Extremity Dressing / Incision Call your doctor if your incision/area has: Continuous Slow Oozing, Sudden Increased Bleeding, Increased Pain/ Swelling, Increased Redness and Foul Smelling Discharge Call your doctor if you observe: Fever of 101 or Higher, Coldness, Increased Pain, Numbness or Tingling, Change in Color, Shortness of breath, Chest pain, Calf discomfort and Uncontrolled pain Remove Dressing in: 4 days (Okay to remove dressing on February 04, 2025) Additional Dressing/Incision Instructions:: Follow [facility] Post-op Instructions. Recommend getting up every hour while awake and walking for several minutes. If no bowel movement by February 02, 2025, we recommend you add in MiraLAX. If you do not have any bowel movement by Wednesday contact our office. Once postoperative dressing has been removed only use gentle soap and water over the incision. Do not use any ointments, Neosporin, salves, alcohol pads over the incision for 6 weeks posto peratively. Do not submerge underwater for 6 weeks postoperatively. Continue with AMMON hose/elastic stockings for 2 weeks postoperatively. May remove at nighttime but needs to be placed back on the leg during the day. Do NOT use alcohol with narcotic pain medication. Do NOT make important decisions while taking narcotic medication. If you have problems with taking your medication (rash, itching, nausea, etc.) call the office at once. Follow Up Care Test Results: Test results from this visit will be discussed in further detail at your follow-up appointment, if applicable. Discharge Plan Admission Admit Date/Time: 01/30/25 15:14 Attending Provider: [place] Ricardo Primary Care Provider: Steve Alexandre Consulting Providers: Tom Birmingham; Matt Yu; Matt Lema Discharge Orders/Prescriptions Prescriptions: New acetaminophen 500 mg Tablet 1,000 mg PO TID 14 Days Qty: 84 0RF Rx Instructions: Do not take more than 3000 mg Tylenol in a 24-hour period. aspirin 81 mg Tablet,Chewable 81 mg PO BIDCM 30 Days Qty: 60 0RF Rx Instructions: Take 81 mg aspirin twice daily for 4 weeks postoperatively for DVT prophylaxis. oxycodone 5 mg Tablet 5 - 10 mg PO Q4H PRN PRN (Reason: As Needed For Pain) 7 Days Qty: 52 0RF sennosides-docusate sodium [Stimulant Laxative Plus] 8.6-50 mg Tablet 2 tab PO BID 4 Days Qty: 16 0RF Rx Instructions: Take until first bowel movement, then as needed Continued albuterol sulfate 90 mcg/actuation HFA aerosol inhaler 2 puff inhalation Q4H PRN (Reason: shortness of breath or wheezing) Qty: 8.5 1RF Rx Instructions: administer with spacer fluticasone propionate 220 mcg/actuation HFA aerosol inhaler 2 puff inhalation BID Qty: 12 11RF omeprazole 40 mg capsule,delayed release(DR/EC) 40 mg PO BID Qty: 60 2RF alendronate 70 mg tablet 70 mg PO QWEEK Qty: 12 1RF paroxetine HCl 40 mg tablet 40 mg PO DAILY Qty: 90 1RF levothyroxine 150 mcg tablet 150 mcg PO DAILY Qty: 90 1RF Rx Instructions: Take extra 1/2 tablet (75 mcg) once per week amitriptyline 25 mg tablet 25 mg PO QHS Qty: 90 1RF indapamide 1.25 mg tablet 1.25 mg PO QAM Qty: 90 1RF cholecalciferol (vitamin D3) 1,250 mcg (50,000 unit) capsule 1,250 mcg PO GARZA Qty: 20 2RF atenolol 50 mg tablet 50 mg PO DAILY Qty: 90 1RF Rx Instructions: TAKE 1 TABLET BY MOUTH DAILY FOR BLOOD PRESSURE/HEART RATE Discontinued acetaminophen 500 mg Tablet 1,000 mg PO DAILY PRN (Reason: Pain) Referrals / Follow Up: Physical,Therapy [Other] - 02/05/25 11:00 am Steve Alexandre MD [Primary Care Provider] - Ty Maynard PA-C [Med Staff - [facility] Prof] - 02/12/25 10:45 am Disposition Disposition (needs filled in before D/C Order can be placed): Home, Self Care 01/31/25 0942 Ty REECE PA-C CC: Dr. Tom Birmingham DO; Dr. Steve Alexandre MD; Dr. Matt Yu MD; Dr. Matt Lema MD Sig (more content not included)... Normal [facility] Erythrocyte distribution wid th ratioOrdered By: Matt Lema on 01-31-2025 Erythrocyte distribution width (RBC) [Ratio] 13.8 % 11.6-14.6 [facility] Erythrocyte distribution wid th standard deviationOrdered By: Matt Lema on 01-31-2025 Erythrocyte distribution width (RBC) [Ratio] 40.9 fl 35.1-43.9 [facility] Glomerular filtration rate ( GFR) estimation/1.73 sq m using serum, plasma, or whole bOrdered By: Matt Lema on 01-31-2025 GFR/1.73 sq M.predicted among non-blacks MDRD (S/P/Bld) [Vol rate/Area] 66 mL/min/{1.73_m2} >60 [facility] Comment on above: mL/min/1.73m2 CKD-EP I Creatinine Equation (2020) Hematocrit Auto (Bld) [Volum e fraction]Ordered By: Matt Lema on 01-31-2025 Hematocrit (Bld) [Volume fraction] 35.9 % Low 37-47 [facility] Hemoglobin measurementOrdere d By: Matt Lema on 01-31-2025 Hemoglobin (Bld) [Mass/Vol] 12.0 g/dL 12.0-15.0 [facility] MCV (mean corpuscular volume ) determinationOrdered By: Matt Lema on 01-31-2025 MCV (RBC) [Entitic vol] 81.8 fL 81-99 [facility] Mean corpuscular hemoglobin (MCH) determinationOrdered By: Matt Lema on 01-31-2025 MCH (RBC) [Entitic mass] 27.3 pg 27.0-32.0 [facility] Mean corpuscular hemoglobin concentration (MCHC) determinationOrdered By: Matt Lema on 01-31-2025 MCHC (RBC) [Mass/Vol] 33.4 g/dL 32-36 [facility] Mean platelet volume determi nationOrdered By: Matt Lema on 01-31-2025 Platelet mean volume (Bld) [Entitic vol] 11.2 fL 6.2-12.0 [facility] Platelet countOrdered By: St santiago Lema on 01-31-2025 Platelets (Bld) [#/Vol] 207 10*3/uL 150-450 [facility] Potassium measurement (mass/ volume)Ordered By: Matt Lema on 01-31-2025 Potassium (Unsp spec) [Mass/Vol] 4.2 mmol/L 3.3-5.1 [facility] Comment on above: Hemolysis present, R esults could be affected. RBC Auto (Bld) [#/Vol]Ordere d By: Matt Lema on 01-31-2025 RBC (Bld) [#/Vol] 4.39 10*6/uL 4.2-5.4 [facility] Serum creatinine measurement (mass/volume)Ordered By: Matt Lema on 01-31-2025 Creatinine [Mass/Vol] 0.92 mg/dL 0.70-1.20 [facility] Serum glucose measurement (m ass/volume)Ordered By: Matt Lema on 01-31-2025 Glucose [Mass/Vol] 174 mg/dL High 70-99 [facility] Serum or plasma calcium nereida urement (mass/volume)Ordered By: Matt Lema on 01-31-2025 Calcium [Mass/Vol] 8.8 mg/dL 7.6-11.0 [facility] Serum or plasma urea nitroge n measurement (mass/volume)Ordered By: Matt Lema on 01-31-2025 Urea nitrogen [Mass/Vol] 17 mg/dL 4-19 [facility] Sodium levelOrdered By: Jorge A Lema on 01-31-2025 Sodium [Moles/Vol] 135 mmol/L 133-145 [facility] White blood cell (WBC) count Ordered By: Matt Lema on 01-31-2025 WBC (Bld) [#/Vol] 12.5 10*3/uL High 4.4-11.0 [facility] Bedside Glucoseon 01-30-2025 FINGERSTICK GLU 89 mg/dL Normal 74-106 [facility] Comment on above: Result Comment: SAMMY VILLAR OF PATIENT CARE PER NURSING PROTOCOL Performed By: #### L 501.080 #### [facility] [address] [place], [address] Consultation - [place] 01-30-2025 Consultation - Hospitalist [facility] Medical Records Department [address] [place] [address] Consultation - Hospitalist 01/30/25 1713 MR#: [id number] Acct: [id number] Name: ALMA XIONG Rep #: [id number] : 1950 74 From: Tom Birmingham DO PCP: Dr. Steve Alexandre MD Status:ADM RANDLOPH Location: [place] [id number] Assessment Plan Assessment/Plan (1) Status post right knee replacement: PLAN: Plan Patient is a 74-year-old female who presented [facility] on 01/30/2025 for planned right knee replacement. Medicine consulted postoperatively for medical management. 1. Right knee osteoarthritis ??? Orthopedic surgery primary. S/p right robotic assisted total knee arthroplasty with Dr. Lema on 01/30. Tolerated procedure well, no intraoperative complications noted. Pain control, DVT prophylaxis and further postoperative care per orthopedics. Follow-up a.m. CBC and BMP. PT/OT/case management consulted. 2. Hypertension ??? Normotensive postoperatively. Okay to resume home atenolol and indapamide with hold parameters. 3. Anxiety/depression ??? Continue home paroxetine and amitriptyline at night. 4. Hypothyroidism ??? Continue home Synthroid. 5. GERD ??? Continue home PPI. DVT prophylaxis: Baby aspirin twice daily per orthopedics Total clinical time spent by myself addressing the patient's medical issues, reviewing all the data, and collaborating with patient's care team: 35 minutes. HPI Consult Data Date of Consult: 01/30/25 HPI Narrative Reason for Consultation: Postoperative medical management HPI Narrative: ALMA XIONG, is a 74 F who presented to [facility] on 01/30/2025 for planned right knee replacement. Medicine consulted postoperatively for medical management. Patient had right knee minimally invasive robotic assisted total arthroplasty done with Dr. Lema today. Tolerated procedure well, no intraoperative complications noted. I saw the patient at bedside this evening, 2 other family members present. Patient was sitting back comfortably in bed, conversing normally, in no acute distress. She denied any knee pain currently. Denied any other acute concerns at this time. [facility] Medical History Dietary restriction Burning with urination Elevated liver [...] breast cancer Depression Hypothyroidism HTN (hypertension), benign Home Medications ???Medication ???Instructions ???Recorded ???Last Taken ???Type acetaminophen 500 mg tablet 1,000 mg PO DAILY PRN Pain 3 Unknown History omeprazole 40 mg capsule,delayed 40 mg PO BID gerd #60 caps 4 01/29/25 Rx release alendronate 70 mg tablet 70 mg PO QWEEK #12 TABLETS 4 Unknown Rx albuterol sulfate 90 mcg/actuation 2 puff inhalation Q4H PRN Unknown Rx aerosol inhaler shortness of breath or wheezing #8.5 grams paroxetine HCl 40 mg tablet 40 mg PO DAILY #90 tabs 09/18/24 0 01/30/25 09:30 Rx levothyroxine 150 mcg tablet 150 mcg PO DAILY #90 tabs 10/05/24 01/30/25 08:26 Rx amitriptyline 25 mg tablet 25 mg PO QHS #90 tabs 10/23/24 Rx indapamide 1.25 mg tablet 1.25 mg PO QAM htn #90 tabs 01/30/25 09:30 Rx atenolol 50 mg tablet 50 mg PO DAILY #90 tabs 12/28/24 0 01/30/25 09:30 Rx cholecalciferol (vitamin D3) 1,250 1,250 mcg PO GARZA #20 caps 5 01/28/25 Rx mcg (50,000 unit) capsule fluticasone propionate 220 2 puff inhalation BID #12 grams Unknown Rx mcg/actuation HFA aerosol inhaler Allergy/AdvReac Type Severity Reaction Status Date / Time ciprofloxacin (From Cipro) Allergy Intermediate hives Verified 01/17/25 09:19 milk (dairy) Allergy Food Verified 01/17/25 09:19 Allergy Family History Mother Breast cancer Father Cancer Bone and Bladder CA Alcoholism Grandmother Heart disease CVA (cerebral vascular accident) Sister Heart disease Cancer lung COPD (chronic obstructive pulmonary disease) Multiple (more content not included)... Normal [facility] Decalcification bone/plaqueo n 01-30-2025 Decalcification bone/plaque -------- Patient Age/Sex Location Account Attending Physician -------- ALMA XIONG 74/F MS3 [id number] Dr. [place] Ricardo MD -------- Specimen: [id number] Received: 01/30/25 Status: JANEE Novak Num: [id number] Spec Type: TOTAL KNEE Subm Dr: Dr. Matt Lema MD HEADER OPERATION: ERAS, total knee replacement robotic arm assist PRE-OP DIAGNOSIS: Primary osteoarthritis right knee TISSUE SUBMITTED: A- Right knee debrided bone and tissue -------- MICROSCOPIC DIAGNOSIS A. Right knee, bone and soft tissue, total knee arthroplasty: - Articular bone with reactive/degenerative changes and focal trilineage hematopoiesis. - Cartilage and synovium with reactive/degenerative change. MICROSCOPIC DESCRIPTION Slides are reviewed. GROSS DESCRIPTION A. Received in formalin labeled with the patient's name and date of . Designated as " right knee debrided bone and tissue" is a 12.7 x 12.3 x 3.2 cm aggregate of celeste-yellow soft tissue, celeste-white fibrous tissue and irregular bone fragments, collectively comprising a knee joint. Majority of the bone fragments are surfaced by celeste granular articular cartilage with areas of eburnation and mild peripheral osteophyte formation. Devil Dog sections are submitted in 2 cassettes, following decalcification as follows: A1: Bone with eburnation and osteophyte formationA2: Soft tissue HI 01/31/2025 CPT:66310,99384 -------- Patient Age/Sex Location Account Attending Physician -------- ALMA XIONG 74/F MS3 [id number] Dr. [place] Ricardo MD -------- Signed (signature on file) Dr. Mariah Maloney MD 02/12/25 1242 -------- Normal [facility] Comment on above: Performed By: #### P DEC ####[facility] [id number] [place], [place], [id number] [facility] deOrdered By: Matt Lema on 01-30-2025 Glucose [Mass/Vol] 89 mg/dL 74-106 [facility] Comment on above: MANAGEMENT OF PATIEN T CARE PER NURSING PROTOCOL Knee 1 or 2 Viewson 01-31-20 Knee 1 or 2 Views [facility] Imaging Services [address] [place] [address] Knee 1 or 2 Views MR#: [id number] Acct: [id number] Name: ALMA XIONG Rep #: [id number] : 1950 F 74 From: Richmond Davenport PCP: Dr. Steve Alexandre MD Status: ADM RANDOLPH Study: Knee 1 or 2 Views Date of Exam: 01/30/25 Exam# [id number] Ordering Dr: Matt Lema MD PROCEDURE: KNEE 1 OR 2 VIEWS 01/30/2025 REASON FOR EXAM: TKA TECHNIQUE: AP and lateral portable postoperative right knee COMPARISON: None provided. RAD/Knee 1 or 2 Views IMPRESSION: Overlying skin mario are seen. The patient is postoperative right total knee arthroplasty, with satisfactory alignment seen. No complication is noted. No fracture site is evident. Reading Location: [place] [address] CC: Dr. Steve Alexandre MD; Dr. Matt Lema MD Records And Tape Recordings Engineer: Signed [facility] MR/POSTOP.[facility] 01-30-2025 MR/[address] Medical Records Department [address] [place] [address] Anesthesia Postop Eval I 01/30/25 1604 MR#: [id number] Acct: [id number] Name: ALMA XIONG Rep #: [id number] : 1950 74 From: Caesar Das CRNA PCP: Dr. Steve Alexandre MD Status:ADM RANDOLPH Y Race: C Location: [place] [address] Anesthesia: Postop Eval I Current Vital Signs Temperature: 97 F Pulse Rate: 71 Blood Pressure: 127/54 Respiratory Rate: 16 Pulse Ox: 100 Oxygen Delivery Method: Nasal Cannula Assessment Airway patent: Yes Spontaneous unlabored respirations: Yes Mental status: Awake nausea: No Vomiting: No Anesthesia Complication: No Fluid Hydration Crystalloid volume administer (ml): 2,000 Total IV fluid infused: 2,000 Progress Note Anesthesia document: Postop Eval 1 completed: Yes 01/30/25 1605 Date Caesar Das DETAIL TECHNICIAN Cosigner Signature: Date CC: Signed Normal [facility] [id number] 01-30-2025 MR/POSTOPAN2 [facility] Medical Records Department [address] [place] [address] Anesthesia Postop Eval II 01/30/251817 MR#: [id number] Acct: [id number] Name: ALMA XIONG Rep #: [id number] : 1950 74 From: Lior Reynaga MD PCP: Dr. Steve Alexandre MD Status:ADM RANDOLPH Y Race: C Location: [facility] [id number] Anesthesia Postop Eval I Sum Postop Eval Completion status Anesthesia document: Postop Eval 1 completed: Yes Anesthesia Postop Eval I Summary Anesthesia Postop Eval I Summary: Anesthesia Postop Eval I: Assessment Summary Airway patent Yes 01/30/25 16:05 DETAIL TECHNICIAN.ACAR Spontaneous unlabored Yes 01/30/25 16:05 DETAIL TECHNICIAN.ACAR respirations Mental status Awake 01/30/25 16:05 DETAIL TECHNICIAN.ACAR nausea No 01/30/25 16:05 DETAIL TECHNICIAN.ACAR Vomiting No 01/30/25 16:05 DETAIL TECHNICIAN.ACAR Anesthesia Postop Eval I: Fluid Summary Crystalloid volume administer 2,000 01/30/25 16:05 DETAIL TECHNICIAN.ACAR (ml) Colloids volume administered ( ml) Blood Product volume administered (ml) Total IV fluid infused 2,000 01/30/25 16:05 DETAIL TECHNICIAN.ACAR Anesthesia Postop Eval I: Summary Notes Anesthesia Complication No 01/30/25 16:05 DETAIL TECHNICIAN.ACAR Anesthesia Complication Comment: Post-operative progress note Anesthesia: Postop Eval II Evaluation Mental status: Awake and Calm Pain Level: 5 nausea: No Vomiting: No Complications Anesthesia Complication: No 07/01/25 1818 Date Lior Marroquin Signature: Date CC: Signed Normal [facility] Operative Reporton 5 Operative Report [facility] Medical Records Department [address] [place] [place] [address] Operative Report 01/30/25 1517 MR#: [id number] Acct: [id number] Name: ALMA XIONG Rep #: [id number] : 1950 74 From: Matt Lema MD PCP: Dr. Steve Alexandre MD Status:DIS RANDOLPH Location: [place] [address] Operative Report (Standard) Operative Information Date of Procedure: 01/30/25 Pre-Operative Diagnosis: Right knee primary osteoarthritis Post-Operative Diagnosis: Right knee primary osteoarthritis Surgery/Procedure Performed: Right knee minimally invasive robotic assisted total arthroplasty order worker: Yes Electric Shipyard Operator: Ty Maynard Tasks completed by melter assistant: Other (See body of operative report) Additional surgical physician assistant?: No Type of Anesthesia: Spinal RN Documented Start/Stop Times: Operation Date: 01/30/25 13:00 Case Time Into Pre-Op 01/30/25 11:04 Anesthesia Start 01/30/25 14:03 Into Room 01/30/25 14:03 Procedure Start 01/30/25 14:27 Procedure End 01/30/25 15:38 Anesthesia End 01/30/25 15:44 Out of Room 01/30/25 15:44 Into Recovery 01/30/25 15:46 Out of Recovery 01/30/25 17:04 Procedure Start Time: 14:27 Procedure Stop Time: 15:38 Select all DRAINS/GRAFTS/IMPLANTS that apply: Prosthetic device Prosthetic device details: See body of operative report Special Medications: 2 g Ancef, 1 g TXA at incision, 1 g TXA closure, 10 mg Decadron, joint cocktail (5 mg Duramorph, 30 mL of 0.5% Ropivicaine, 1000 units of epinephrine, 30 mg of Toradol) Estimated Blood Loss: 75 mL Fluids Replaced: 2000 mL crystalloid Specimen collected: Yes Description of specimen(s) removed: Bony cuts Description of surgery: Implants used: 1. Jerry size 4 triathlon cruciate retaining distal femoral press-fit component 2. Jerry size 4 press-fit tritanium tibial baseplate 3. Sturbridge X3 9 mm CS polyethylene 4. Jerry X3 32 mm asymmetric patella Brief history operative indications: 74-year-old F with history of right knee osteoarthritis with radiographic findings with loss of joint space, osteophyte formation and subchondral sclerosis. Failed conservative measures as mentioned in the H P. Discussion of total knee arthroplasty as well as risk and benefits were discussed the patient including but not limited to blood loss, DVTs, PEs, neurovascular damage, general risk of anesthesia including loss of life, and stiffness or instability were discussed with patient. Patient demonstrated understanding and was able to sign informed consent. Procedure: On the date of procedure patient's right lower extremity was marked in the preoperative area. The patient was then taken back to the operating room where the patient was placed on the table in the supine position. All bony prominences were identified a well-padded. Anesthesia assumed control of the C-spine and airway and remained controlled throughout the remainder of the procedure. A tourniquet was placed on the right upper thigh and the leg was prepped in a sterile fashion. The surgeon then scrubbed at this time .Upon reentering the room right lower extremity was draped in a standard orthopedic fashion. A timeout was then called and everyone agreed upon the side, the site, the procedure to be performed, patient's identity and antibiotics given. Esmarch bandage was used to exsanguinate the extremity and the tourniquet was placed up to 250 mmHg with the knee in flexion. A midline skin incision was made and sharp dissection was taken down through skin subcutaneous tissue and fat. The standard medial parapatellar incision was made and the patella was subluxed laterally. An Appropriate deep MCL release was done and the fat pad was resected. Our attention was then directed to the patella. The patella was everted and a flat resection was made. The knee was then flexed up in 2 femoral pins were placed inside the incision and 2 tibial pins were placed outside the incision in the medial tibia bicortically. Once this was completed the 2 checkpoints in the femur and tibia were placed. Knee was then flexed up and the bony landmarks were registered. Once this was completed knee was taken through range of motion and manually stressed allowing us to a plan for an appropriate tibial cut. The robotic arm was brought into the field sterilely and checkpoint and saw were registered. Based on the patient's deformity the tibial cut was made neutral to the tibial axis. At this time the tensioner was then placed in the joint and ligament tension was checked at 90 degrees and full extension. Based on the patient's ligamentous tension appropriate adjustments were made to the operative plan and ligament releases were done. Once we were happy with our operative plan with balanced flexion and extension gaps our attention was directed to the femur. The robot was brought into the field sterile (more content not included)... Normal [facility] Pulmonary Visit Reporton Pulmonary Visit Report [facility] [address] [place] [address]. [address] [place] [address] OFFICE VISIT Date of Service: 01/17/25 MR#: [id number] Acct: [id number] Name: ALMA XIONG Rep #: [id number] : 1950 Provider: Dina Edmondson NP Age/Sex: 74/F [place] [facility] Status: Signed Assessment and Plan Assessment and Plan (1) Shortness of breath: Status: Chronic Plan: The patient has had a history of shortness of breath which has neither improved nor progressed. While there is some exertional oxygen desaturation identified on the 6-minute walk test there is no need to utilize supplemental oxygen at this time. Unfortunately the echocardiogram was unable to determine if there is elevation in right ventricular systolic pressure. The patient is struggling to be physically active due to significant back pain and shortness of breath. The patient may still have elevated right ventricular systolic pressure which would explain the exertional desaturation seen on the 6-minute walk test and point to pulmonary hypertension. Mucous plugging could also be present causing a reduction in gas transfer. Due to worsening gas transfer on the PFT then I will repeat the CT scan at this time. The patient is in agreement to this plan. Despite further workup that is recommended, I believe that the patient should proceed with recommended knee surgery. From a pulmonary stand point, the patient is a mild risk of perioperative complications and should proceed with the recommended surgical intervention. I believe if the pain improves this could also help improve her shortness of breath. She should be monitored for apnea, hypoxemia, hypercarbia. She is at risk for mucous plugging, atelectasis. (2) Cough: Status: Acute Qualifiers: Cough type: chronic Qualified Code(s): R05.3 - Chronic cough Plan: Shortness of breath does occur with associated symptoms of cough and wheeze. NIOX is elevated today which would point to asthma. I had previously recommended a trial of ICS therapy. The patient was unable to afford the inhaler that was previously prescribed. A new inhaler was sent at today's visit. The use and potential side effects of this inhaler were discussed today. The patient should utilize a spacer with fluticasone propionate inhaler. The patient does have a milk allergy so all dry powdered inhalers have to be avoided. I am not convinced that albuterol will provide her with benefit at this time as there is no reversibility on the PFT with use of UNIQUE. I do believe that dupixent may be of benefit from a respiratory stand point as well. Orders: Orders Chest without Contrast Today R06.02 - Shortness of breath, R93.89 - Abnormal findings on diagnostic imaging of other specified body structures NIOX Today R05.9 - Cough, unspecified Medications: New fluticasone propionate 220 mcg/actuation 2 puffs inhalation BID 12 grams 11RF R05.9 - Cough, unspecified Plan Details Follow Up: 8 Weeks (LMR) HPI HPI Comments Details: The patient [...] and catch her breath. She reports that wheezing will occur on occasion at night. She experiences a cough that is nonproductive. She is wondering if there is possibly a food allergy, recent testing with GI indicated a milk allergy. She is avoiding dairy. She has known esophagitis. She denies chest pain and chest pressure. She denies fever, chills, body ache (more content not included)... Normal [facility] Internal Medicine Office Vis iton 01-10-2025 Internal Medicine Office Visit [facility] [address] [place] [address] [place] [address] OFFICE VISIT Date of Service: 01/10/25 MR#: [id number] Acct: [id number] Name: ALMA XIONG Rep #: [id number] : 1950 Provider: CHEVY Pruitt Age/Sex: 74/F [place] [facility] Status: Signed Intake Vital Signs 12/15/24 10:29 01/10/25 12:51 Height 5 ft 4 in 5 ft 4 in Weight: 190 lb 196 lb BMI 32.5 33.6 BP 128/80 H Blood Pressure Location Lt brachial Position Sitting Respiration 16 Pulse 91 Pulse Source Monitor Temp 97.6 F L Temp Source Temporal Pulse Oximetry (%) 89 Oxygen Delivery Method room air Intake Visit Reasons: ACUTE SURGICAL CLEARANCE Chief Complaint: sgy clearance Social Problems Specialist Required: No Accompanied by: Self Is patient in pain?: No Allergies ciprofloxacin (From Cipro) Allergy (Intermediate, Verified 01/17/25 09:19) hives milk (dairy) Allergy (Verified 01/17/25 09:19) Food Allergy Medications ???Medication ???Instructions ???Recorded ???Confirmed ???Type acetaminophen 500 mg tablet 1,000 mg PO DAILY PRN Pain 3 01/17/25 History omeprazole 40 mg capsule,delayed 40 mg PO BID gerd #60 caps 4 01/17/25 Rx release alendronate 70 mg tablet 70 mg PO QWEEK #12 TABLETS 4 01/17/25 Rx albuterol sulfate 90 mcg/actuation 2 puff inhalation Q4H PRN 01/17/25 Rx aerosol inhaler shortness of breath or wheezing #8.5 grams paroxetine HCl 40 mg tablet 40 mg PO DAILY #90 tabs 09/18/24 0 01/17/25 Rx levothyroxine 150 mcg tablet 150 mcg PO DAILY #90 tabs 10/05/24 01/17/25 Rx amitriptyline 25 mg tablet 25 mg PO QHS #90 tabs 10/23/24 Rx indapamide 1.25 mg tablet 1.25 mg PO QAM htn #90 tabs 01/17/25 Rx atenolol 50 mg tablet 50 mg PO DAILY #90 tabs 12/28/24 0 01/17/25 Rx cholecalciferol (vitamin D3) 1,250 1,250 mcg PO GARZA #20 caps 5 01/17/25 Rx mcg (50,000 unit) capsule fluticasone propionate 220 2 puff inhalation BID #12 grams 01/17/25 Rx mcg/actuation HFA aerosol inhaler Have you fallen in the past year?: No Nurse's Note: patient has nail colombian possibly affecting the oxygen reading but patient has a history with pulmonary issues will be having right knee replacement [facility] Medical History Dietary restriction Burning with urination Elevated liver [...] HTN (hypertension), benign Surgical History History of lumpectomy of left breast History of laryngoscopy History of esophagogastroduodenoscopy (EGD) History of cardiac [...] participate in: none HPI HPI Chief Complaint: sgy clearance Details: ALMA XIONG, is a 74 F who presents to the office today for pre-operative evaluation / clearance. Patient was told that she had some abnormalities on her EKG that looked fairly abnormal and therefore she needed to follow-up here in our office for surgical clearance. Patient was having some shortness of breath which started evaluations / imaging (CT scans showing pneumonitis) leading to referrals to pulmonology as well as (more content not included)... Normal [facility] MR/PAT.ANEon 01-04-2025 MR/PAT.ANE [facility] Medical Records Department [address] [place] [address] PAT - Anesthesia 01/04/25 1744 MR#: [id number] Acct: [id number] Name: ALMA XIONG Rep #: [id number] : 1950 74 From: Mk Osborn MD PCP: Dr. 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 Hx Hospitalization No 01/04/25 15:57 Any [...] take am of surgery PONV PONV - light rail operator: PONV - light rail operator Female Yes 01/04/25 15:57 HX of [...] 12/15/24 10:29 Respiratory Assessment Respiratory Assessment - light rail operator: Respiratory Tract Infection Hx - light rail operator Hx Respiratory Tract Infection No 01/04/25 15:57 STOP Sleep Apnea STOP Sleep Apnea - light rail operator: STOP Sleep Apnea - light rail operator Hx Hypertension Yes: CONTROLLED WITH MED [...] Tobacco Use History Tobacco Use History - light rail operator: Tobacco Use History - light rail operator Tobacco Use Smoking Status Former smoker 01/04/25 15:57 Hx Tobacco Use No 01/04/25 15:57 Years Smoking Packs Smoked per Day Smoking Cessation Date was No - quit smoking greater 01/04/25 15:57 within the last 15 years than 15 years ago Hx Smoking Cessation Date Hx Smoking Cessation No 01/04/25 15:57 Counseling Hematologic Medial History Hematologic Hx - light rail 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 Normal [facility] ALBUMIN PLASMAon 01-02-2025 Albumin [Mass/Vol] 3.7 g/dL Normal 3.4 - 5.0 [facility] Comment on above: Performed By: #### 2 72921 #### [facility],[address] [place] [address] BMP with eGFRon 01-02-2025 AGE 74 years Normal [facility] Comment on above: Performed By: #### 2 22773 #### [facility],[address] [place] [address] Anion gap [Moles/Vol] 9 mmol/L Low 10 - 20 [facility] Comment on above: Performed By: #### 2 59038 #### [facility],[address] [place], [place] [id number] BMP with eGFR Normal [facility] Comment on above: Result Comment: BASI C METABOLIC PANEL Performed By: #### 2 64212 #### [facility],[address] [place] [address] Calcium [Mass/Vol] 9.6 mg/dL Normal 8.5 - 10.1 [facility] Comment on above: Performed By: #### 2 36045 #### [facility],[address] [place], [place] [address] Chloride [Moles/Vol] 101 mmol/L Normal 98 - 107 [facility] Comment on above: Performed By: #### 2 43767 #### [facility],[address] [place] [address] CO2 [Moles/Vol] 33.0 mmol/L High 21.0 - 32.0 [facility] Comment on above: Performed By: #### 2 21091 #### [facility],[address] [place] [address] Creatinine [Mass/Vol] 0.96 mg/dL Normal 0.55 - 1.02 [facility] Comment on above: Performed By: #### 2 23983 #### [facility],[address] [place] [address]46 eGFR 57 ML/MINUTE Low 60 - 999 [facility] Comment on above: Performed By: #### 2 28608 #### [address] [address] GFR/1.73 sq M.predicted among non-blacks MDRD (S/P/Bld) [Vol rate/Area] mL/min/{1.73_m2} Normal 60 - 999 [facility] Comment on above: Result Comment: ACCO RDING TO THE NATIONAL KIDNEY DISEASE EDUCATION PROGRAM(NKDE), A NORMAL eGFR IS A VALUE GREATER THAN OR EQUAL TO 60 ML/MIN/1.73 SQ METERS. CHRONIC KIDNEY DISEASE: <60mL/MIN/1.73 SQ METERS KIDNEY FAILURE: <15mL/MIN/1.73 SQ METERS THIS TEST SHOULD ONLY BE USED FOR PATIENTS 18 YEARS OF AGE AND OLDER. Performed By: #### 2 53050 #### [address] [address] Glucose [Mass/Vol] 83 mg/dL Normal 74 - 106 [facility] Comment on above: Performed By: #### 2 57404 #### [address] [address] Potassium [Moles/Vol] 3.6 mmol/L Normal 3.5 - 5.1 [facility] Comment on above: Performed By: #### 2 32180 #### [address] [address] Sodium [Moles/Vol] 139 mmol/L Normal 136 - 145 [facility] Comment on above: Performed By: #### 2 65453 #### [address] [address] Urea nitrogen [Mass/Vol] 18 mg/dL Normal 7 - 18 [facility] Comment on above: Performed By: #### 2 54545 #### [address] [address] CBC + DIFFon 01-02-2025 Baso # 0.02 x10EE3/UL Normal 0.00 - 0.10 [facility] Comment on above: Performed By: #### 2 09441 #### [facility],[address] [place], [place] [address] Basophils/100 WBC (Bld) 0.3 % Normal 0.0 - 2.0 [facility] Comment on above: Performed By: #### 2 42789 #### [facility],[address] [place] [address] CBC + DIFF Normal [facility] Comment on above: Result Comment: CBC- COMPLETE BLOOD COUNT Performed By: #### 2 78108 #### [facility],[address] [place] [address] EO # 0.43 x10EE3/UL Normal 0.00 - 0.50 [facility] Comment on above: Performed By: #### 2 90167 #### [facility],[address] [place] [address] Eosinophils/100 WBC (Bld) 6.7 % Normal 0.0 - 7.0 [facility] Comment on above: Performed By: #### 2 87404 #### [facility],[address] [place] [address] Erythrocyte distribution width (RBC) [Ratio] 14.9 % Normal 12.0 - 15.6 [facility] Comment on above: Performed By: #### 2 24388 #### [facility],[address] [place] [address] Hematocrit (Bld) [Volume fraction] 41.2 % Normal 34.0 - 46.0 [facility] Comment on above: Performed By: #### 2 13574 #### [facility],[address] [place], [place] [address] Hemoglobin (Bld) [Mass/Vol] 14.0 g/dL Normal 12.0 - 16.0 [facility] Comment on above: Performed By: #### 2 31241 #### [facility],[address] [place] [address] Lymph # 2.06 x10EE3/UL Normal 0.80 - 2.80 [facility] Comment on above: Performed By: #### 2 97507 #### [facility],[address] [place] [address] Lymphocytes/100 WBC (Bld) 32.4 % Normal 20.0 - 45.0 [facility] Comment on above: Performed By: #### 2 94505 #### [facility],[address] [place] [address] MANUAL DIFF N/A Normal [facility] Comment on above: Performed By: #### 2 78938 #### [facility],[address] [place] [address] MCH (RBC) [Entitic mass] 27 pg Normal 27 - 33 [facility] Comment on above: Performed By: #### 2 85553 #### [facility],[address] [place] [address] MCHC 34 X10 3 Normal 32 - 36 [facility] Comment on above: Performed By: #### 2 33426 #### [facility],[address] [place], [place] [address] MCV (RBC) [Entitic vol] 80 fL Normal 80 - 99 [facility] Comment on above: Performed By: #### 2 76526 #### [facility],[address] [place] [address] Whiteside # 0.45 x10EE3/UL Normal 0.20 - 1.00 [facility] Comment on above: Performed By: #### 2 32991 #### [facility],[address] [place] [address] MONOS % 7.1 % Normal 0.0 - 10.0 [facility] Comment on above: Performed By: #### 2 50354 #### [facility],[address] [place] [address] Morphology Jacob (Bld) [Interp] N/A Normal [facility] Comment on above: Performed By: #### 2 41624 #### [facility],[address] [place] [address] Neut # 3.41 x10EE3/UL Normal 1.50 - 7.10 [facility] Comment on above: Performed By: #### 2 70968 #### [facility],[address] [place] [address] Neutrophils/100 WBC (Bld) 53.6 % Normal 46.0 - 76.0 [facility] Comment on above: Performed By: #### 2 61126 #### [facility],[address] [place] [address] PLATELET 275 x10EE3/UL Normal 150 - 450 [facility] Comment on above: Performed By: #### 2 35505 #### [facility],[address] [place] [address] Platelet mean volume (Bld) [Entitic vol] 8.8 fL Normal 6.6 - 10.5 [facility] Comment on above: Result Comment: AUTO MATED DIFFERENTIAL Performed By: #### 2 38152 #### [facility],[address] [place] [address] RBC 5.18 x 10EE6/UL Normal 4.10 - 5.30 [facility] Comment on above: Performed By: #### 2 38328 #### [facility],[address] [place] [address] WBC 6.4 x 10EE3/UL Normal 4.5 - 10.8 [facility] Comment on above: Performed By: #### 2 44423 #### [facility],[address] [place] [address] LOWER EXTREMITY RT WOon 0 01-02-2025 CT LOWER EXTREMITY RT [place] [address] Patient: ALMA XIONG Phone#: : 1950 Age: 74 Gender: F Pt. Type: Out Account: [id number] Location: Ordering: MATT LEMA Exam Date: 01/02/2025/13:14 Family Phys: STEVE ALEXANDRE Charge Code: 245010 Physician: Marshall Order #: [id number] Dose#: 34.8 mGy PROCEDURE: CT LOWER EXTREMITY [...] Lind MD on 01/02/2025 at 15:46 Normal [facility] MAGNESIUMon 01-02-2025 Magnesium [Mass/Vol] 1.9 mg/dL Normal 1.8 - 2.4 [facility] Comment on above: Performed By: #### 2 62118 #### [facility],[address] [place] [address] MRSA Spec Ql Culton 01-03-20 25 MRSA isol Org specific cx Ql (Unsp spec) STAPHYLOCOCCUS AUREUS CULTURE: No growth Normal [facility] Comment on above: Performed By: #### 1 3317-3 #### [facility] CLIA [id number] [address] [place] [address] [place] TSHon 01-02-2025 TSH Qn 0.40 m[IU]/L Normal 0.35 - 3.74 [facility] Comment on above: Performed By: #### 2 71735 #### [facility],[address] [facility] [address] Orthopedic Visit Reporton Orthopedic Visit Report [facility] [address] [place] [address] OFFICE VISIT Date of Service: 12/15/24 MR#: [id number] Acct: [id number] Name: ALMA XIONG Rep #: [id number] : 1950 Provider: Dr. Yordan Shen MD Age/Sex: 74/F [place] [facility] Status: Signed Intake Vital Signs 11/15/24 12:46 [...] instantly. S (more content not included)... Normal [facility] Anion gap in Serum or Plasma Ordered By: Steve Alexandre on 12-05-2024 Anion gap [Moles/Vol] 12 mmol/L 5-15 [facility] BUN/creatinine ratioOrdered By: Steve Alexandre on 12-05-2024 Urea nitrogen/Creatinine [Mass ratio] 21.5 mg/mg High 10-20 [facility] Bilirubin, totalOrdered By: Steve Alexandre on 12-05-2024 Bilirubin [Mass/Vol] 0.53 mg/dL 0.00-1.30 [facility] Carbon dioxide, total [Moles /volume] in Central venous bloodOrdered By: Steve Alexandre on 12-05-2024 CO2 [Moles/Vol] 25.7 mmol/L 21.0-32.0 [facility] Chloride assayOrdered By: Julieth michael Alexandre on 12-05-2024 Chloride [Moles/Vol] 101 mmol/L 98-108 [facility] Comprehensive Metabolic Prof ilon 12-05-2024 Albumin [Mass/Vol] 4.2 g/dL Normal 3.4-4.8 [facility] Comment on above: Performed By: #### L 500.2500 #### [facility] [address] [place], [address] Albumin/Globulin [Mass ratio] 1.6 {ratio} Normal 0.9-2.4 [facility] Comment on above: Performed By: #### L 500.2500 #### [facility] [address] [place], [address] ALK PHOS 53 U/L Normal 35-104 [facility] Comment on above: Performed By: #### L 500.2500 #### [facility] [address] [place], [address] ALT [Catalytic activity/Vol] 36 U/L High <=34 [facility] Comment on above: Performed By: #### L 500.2500 #### [facility] [address] [place], [address] AST [Catalytic activity/Vol] 24 U/L Normal <=31 [facility] Comment on above: Performed By: #### L 500.2500 #### [facility] [address] [place], [address] Bilirubin [Mass/Vol] 0.53 mg/dL Normal 0.00-1.30 [facility] Comment on above: Performed By: #### L 500.2500 #### [facility] [address] [place], [address] BUN/CRE 21.5 RATIO High 10-20 [facility] Comment on above: Performed By: #### L 500.2500 #### [facility] [address] [place], [address] Calcium [Mass/Vol] 9.0 mg/dL Normal 7.6-11.0 [facility] Comment on above: Performed By: #### L 500.2500 #### [facility] [address] [place], [address] Chloride [Moles/Vol] 101 mmol/L Normal 98-108 [facility] Comment on above: Performed By: #### L 500.2500 #### [facility] [address] [place], [address] CO2 [Moles/Vol] 25.7 mmol/L Normal 21.0-32.0 [facility] Comment on above: Performed By: #### L 500.2500 #### [facility] [address] [place], [address] Creatinine [Mass/Vol] 0.98 mg/dL Normal 0.70-1.20 [facility] Comment on above: Performed By: #### L 500.2500 #### [facility] [address] [place], [address] GAP 12 Normal 5-15 [facility] Comment on above: Performed By: #### L 500.2500 #### [facility] [address] [place], [address] GFR/1.73 sq M.predicted among non-blacks MDRD (S/P/Bld) [Vol rate/Area] 62 mL/min/{1.73_m2} Normal >60 [facility] Comment on above: Result Comment: mL/m in/1.73m2 CKD-EPI Creatinine Equation (2020) Performed By: #### L 500.2500 #### [facility] [address] [place] [place], [address] Globulin (S) [Mass/Vol] 2.6 g/dL Normal 2.2-4.2 [facility] Comment on above: Performed By: #### L 500.2500 #### [facility] [address] [place], [address] Glucose [Mass/Vol] 114 mg/dL High 70-99 [facility] Comment on above: Performed By: #### L 500.2500 #### [facility] [address] [place], [address] Potassium [Moles/Vol] 3.6 mmol/L Normal 3.3-5.1 [facility] Comment on above: Performed By: #### L 500.2500 #### [facility] [address] [place], [address] Sodium [Moles/Vol] 138 mmol/L Normal 133-145 [facility] Comment on above: Performed By: #### L 500.2500 #### [facility] [address] [place], [address] T PROT 6.7 g/dL Normal 5.9-8.4 [facility] Comment on above: Performed By: #### L 500.2500 #### [facility] [address] [place], [address] Urea nitrogen [Mass/Vol] 21 mg/dL High 4-19 [facility] Comment on above: Performed By: #### L 500.2500 #### [facility] [address] [place], [address] Glomerular filtration rate ( GFR) estimation/1.73 sq m using serum, plasma, or whole bOrdered By: Steve Alexandre on 12-05-2024 GFR/1.73 sq M.predicted among non-blacks MDRD (S/P/Bld) [Vol rate/Area] 62 mL/min/{1.73_m2} >60 [facility] Comment on above: mL/min/1.73m2 CKD-EP I Creatinine Equation (2020) Laboratory - Chemistry and C hemistry - challengeOrdered By: Steve Alexandre on 12-05-2024 AST [Catalytic activity/Vol] 24 U/L <32 [facility] Potassium measurement (mass/ volume)Ordered By: Steve Alexandre on 12-05-2024 Potassium (Unsp spec) [Mass/Vol] 3.6 mmol/L 3.3-5.1 [facility] Serum creatinine measurement (mass/volume)Ordered By: Steve Alexandre on 12-05-2024 Creatinine [Mass/Vol] 0.98 mg/dL 0.70-1.20 [facility] Serum globulin measurementOr dered By: Steve Alexandre on 12-05-2024 Globulin (S) [Mass/Vol] 2.6 g/dL 2.2-4.2 [facility] Serum glucose measurement (m ass/volume)Ordered By: Steve Alexandre on 12-05-2024 Glucose [Mass/Vol] 114 mg/dL High 70-99 [facility] Serum or plasma alanine hernadez otransferase (ALT) measurementOrdered By: Steve Alexandre on 12-05-2024 ALT [Catalytic activity/Vol] 36 U/L High <35 [facility] Serum or plasma albumin nereida urement (mass/volume)Ordered By: Steve Alexandre 12-05-2024 Albumin [Mass/Vol] 4.2 g/dL 3.4-4.8 [facility] Serum or plasma albumin/glob ulin mass ratioOrdered By: Steve Alexandre 12-05-2024 Albumin/Globulin [Mass ratio] 1.6 {ratio} 0.9-2.4 [facility] Serum or plasma alkaline wilfredo sphatase measurementOrdered By: Steve Alexandre 12-05-2024 ALP [Catalytic activity/Vol] 53 U/L 35-104 [facility] Serum or plasma calcium nereida urement (mass/volume)Ordered By: Steve Alexandre on 12-05-2024 Calcium [Mass/Vol] 9.0 mg/dL 7.6-11.0 [facility] Serum or plasma urea nitroge n measurement (mass/volume)Ordered By: Steve Alexandre 12-05-2024 Urea nitrogen [Mass/Vol] 21 mg/dL High 4-19 [facility] Sodium levelOrdered By: Hiram Alexandre on 12-05-2024 Sodium [Moles/Vol] 138 mmol/L 133-145 [facility] Total proteinOrdered By: Jersey Alexandre on 12-05-2024 Protein [Mass/Vol] 6.7 g/dL 5.9-8.4 [facility] Spine Thoracic (Routine)on 0 11-27-2024 Spine Thoracic (Routine) [facility] [address] [place] [address] Spine Thoracic (Routine) MR#: [id number] Acct: [id number] Name: ALMA XIONG Rep #: [id number] : 1950 F 74 From: Duarte Teixeira MD PCP: Dr. Steve Alexandre MD Status: REG CLI Study: Spine Thoracic (Routine) Date of Exam: Exam# [id number] Ordering Dr: Yordan Shen MD PROCEDURE: SPINE THORACIC (ROUTINE) 11/27/2024 REASON FOR EXAM: PAIN TECHNIQUE: Noncontrast thoracic spine MRI. Multiplanar and multisequence images were obtained. FINDINGS: Ross Lift Operator view with note of vertebral osseous fusion [...] compression or abnormal cord signal. Reading Location: [facility] CC: Dr. Yordan Shen MD; Dr. Steve Alexandre MD Records And Tape Recordings Engineer: Signed Normal [facility] Urine Cultureon 11-25-2024 [facility] Strep anginosus Shubuta Count 80,000-100,000 Mixed Gram Positive Organisms Mixed Gram Positive Organisms MIXC Mixed contaminants. Submit a new specimen if indicated. Strep anginosus: REACTION Ampicillin Islt GREG <=0.25 Penicillin G Islt GREG <=0.06 S Cefotaxime Islt GREG <=0.12 cefTRIAXone Islt GREG <=0.12 S Clindamycin Islt GREG <=0.25 S Linezolid Islt GREG <=2 S Vancomycin Islt GREG 0.25 S Normal [facility] Comment on above: Performed By: #### L 400.0001, M100.2200 #### [facility] [address] [place], [address] Quantiferon TB-Gold+on 11-23 QFT MITOGEN MALISSA > 10.00 Normal . [facility] Comment on above: Performed By: #### L 3400.8000 ####[facility] [address] [place], [place], [id number] QFT NIL VALUE 0.15 IU/mL Normal . [facility] Comment on above: Performed By: #### L 3400.8000 ####[facility] [address] [place], [address] QFT TB GOLD+ Comment Normal . [facility] Comment on above: Result Comment: Hayden tiFERON-TB [...] control for the test. Performed By: #### L 3400.8000 ####[facility] [address] [place], [place], [id number] QFT TB POS CRIT Negative Normal Negative [facility] Comment on above: Result Comment: No r [...] interferon gamma. Chemiluminescence immunoassay methodology Performed at: [facility] [id number] High School Math Tutor: Edin Prater PhD, Phone: [phone] Performed By: #### L 3400.8000 ####[facility] [address] [place], [address] QFT TB1+ AG MALISSA 0.13 IU/mL Normal . [facility] Comment on above: Performed By: #### L 3400.8000 ####[facility] [address] [place], [address] QFT TB2+ AG MALISSA 0.12 IU/mL Normal . [facility] Comment on above: Performed By: #### L 3400.8000 ####[facility] [address] [place], [address] Anion gap in Serum or Plasma Ordered By: Steve Alexandre on 11-21-2024 Anion gap [Moles/Vol] 12 mmol/L 5-15 [facility] BUN/creatinine ratioOrdered By: Steve Alexandre on 11-21-2024 Urea nitrogen/Creatinine [Mass ratio] 16.3 mg/mg 10- [facility] Bilirubin Test strip Ql (U)O rdered By: Steve Alexandre on 11-21-2024 Bilirubin Ql (U) 6 mg/dL High Negative [facility] Comment on above: COLOR OF URINE MAY A FFECT DIPSTICK RESULTS. Bilirubin, totalOrdered By: Steve Alexandre on 11-21-2024 Bilirubin [Mass/Vol] 0.85 mg/dL 0.00-1.30 [facility] Carbon dioxide, total [Moles /volume] in Central venous bloodOrdered By: Steve Alexandre on 11-21-2024 CO2 [Moles/Vol] 23.9 mmol/L 21.0-32.0 [facility] Chloride assayOrdered By: Julieth Alexandre on 11-21-2024 Chloride [Moles/Vol] 100 mmol/L 98-108 [facility] Comprehensive Metabolic Prof ilon 11-21-2024 Albumin [Mass/Vol] 4.3 g/dL Normal 3.4-4.8 [facility] Comment on above: Performed By: #### L 500.2500 #### [facility] [address] [place], [address] Albumin/Globulin [Mass ratio] 1.6 {ratio} Normal 0.9-2.4 [facility] Comment on above: Performed By: #### L 500.2500 #### [facility] [address] [place], [address] ALK PHOS 61 U/L Normal 35-104 [facility] Comment on above: Performed By: #### L 500.2500 #### [facility] [address] [place], [address] ALT [Catalytic activity/Vol] 43 U/L High <=34 [facility] Comment on above: Performed By: #### L 500.2500 #### [facility] [address] [place], [address] AST [Catalytic activity/Vol] 39 U/L High <=31 [facility] Comment on above: Performed By: #### L 500.2500 #### [facility] [address] [place], [address] Bilirubin [Mass/Vol] 0.85 mg/dL Normal 0.00-1.30 [facility] Comment on above: Performed By: #### L 500.2500 #### [facility] [address] [place], [address] BUN/CRE 16.3 RATIO Normal 10-20 [facility] Comment on above: Performed By: #### L 500.2500 #### [facility] [address] [place], [address] Calcium [Mass/Vol] 9.4 mg/dL Normal 7.6-11.0 [facility] Comment on above: Performed By: #### L 500.2500 #### [facility] [address] [place], [address] Chloride [Moles/Vol] 100 mmol/L Normal 98-108 [facility] Comment on above: Performed By: #### L 500.2500 #### [facility] [address] [place], [address] CO2 [Moles/Vol] 23.9 mmol/L Normal 21.0-32.0 [facility] Comment on above: Performed By: #### L 500.2500 #### [facility] [address] [place], [address] Creatinine [Mass/Vol] 0.97 mg/dL Normal 0.70-1.20 [facility] Comment on above: Performed By: #### L 500.2500 #### [facility] [address] [place], [address] GAP 12 Normal 5-15 [facility] Comment on above: Performed By: #### L 500.2500 #### [facility] [address] [place], [address] GFR/1.73 sq M.predicted among non-blacks MDRD (S/P/Bld) [Vol rate/Area] 62 mL/min/{1.73_m2} Normal >60 [facility] Comment on above: Result Comment: mL/m in/1.73m2 CKD-EPI Creatinine Equation (2020) Performed By: #### L 500.2500 #### [facility] [address] [place], [address] Globulin (S) [Mass/Vol] 2.7 g/dL Normal 2.2-4.2 [facility] Comment on above: Performed By: #### L 500.2500 #### [facility] [address] [place], [address] Glucose [Mass/Vol] 98 mg/dL Normal 70-99 [facility] Comment on above: Performed By: #### L 500.2500 #### [facility] [address] [place], [address] Potassium [Moles/Vol] 3.8 mmol/L Normal 3.3-5.1 [facility] Comment on above: Performed By: #### L 500.2500 #### [facility] [address] [place], [address] Sodium [Moles/Vol] 135 mmol/L Normal 133-145 [facility] Comment on above: Performed By: #### L 500.2500 #### [facility] [address] [place], [address] T PROT 6.9 g/dL Normal 5.9-8.4 [facility] Comment on above: Performed By: #### L 500.2500 #### [facility] [address] [place], [address] Urea nitrogen [Mass/Vol] 16 mg/dL Normal 4-19 [facility] Comment on above: Performed By: #### L 500.2500 #### [facility] [address] [place], [address] Epithelial cells.squamous LM Ql (Urine sed)Ordered By: Steve Alexandre on 11-21-2024 Epithelial cells.squamous LM.HPF (Urine sed) [#/Area] 0 /[HPF] 5-10 [facility] GFR/1.73 sq M.predicted vyan g non-blacks MDRD (S/P/Bld) [Vol rate/Area]Ordered By: Steve Alexandre on 11-21-2024 Estimated GFR (MDRD) Non-Af Amer 62 >60 [facility] Comment on above: mL/min/1.73m2 CKD-EP I Creatinine Equation (2020) Gastroenterology Visit Repor ton 11-21-2024 Gastroenterology Visit Report [facility] [address] [place] [address] OFFICE VISIT Date of Service: 11/21/24 MR#: [id number] Acct: [id number] Name: ALMA XIONG Rep #: [id number] : 1950 Provider: CHEVY Bean Age/Sex: 74/F Location: [facility] [place] Status: Signed Intake Vital Signs 09/22/24 14:04 11/15/24 12:46 Height 5 ft 4 in 5 ft 4 in Weight: 192 lb BMI 32.9 BP 128/78 H Blood Pressure Location Lt radial Position Sitting Respiration 20 H Pulse 77 Pulse Source Monitor Temp 97.3 F L Pulse Oximetry (%) 98 Oxygen Delivery Method room air Intake Visit Reasons: fOLLOW UP Chief Complaint: EOE Social Problems Specialist Required: No Allergies ciprofloxacin (From Cipro) Allergy [...] and would like to try something else. [facility] Medical History Elevated liver enzymes Thyroid disease [...] - The examination was otherwise normal EGD .12.19; - Esophageal mucosal changes consistent with eosinophilic [...] eosinophilic esophagitis. Biopsies consistent with EOE OV 4.22.25 Pt increased the omeprazole to BID since [...] Cardiology: Posit (more content not included)... Normal [facility] Glomerular filtration rate ( GFR) estimation/1.73 sq m using serum, plasma, or whole bOrdered By: Steve Alexandre on 11-21-2024 GFR/1.73 sq M.predicted among non-blacks MDRD (S/P/Bld) [Vol rate/Area] 62 mL/min/{1.73_m2} >60 [facility] Comment on above: mL/min/1.73m2 CKD-EP I Creatinine Equation (2020) Glucose Ql (U)Ordered By: Julieth Alexandre on 11-21-2024 Urine Glucose (UA) Normal mg/dl Normal [facility] Hyaline casts LM.LPF (Urine sed) [#/Area]Ordered By: Steve Alexandre on 11-21-2024 Hyaline casts (Urine sed) [#/Area] 0 /[LPF] 0-5 [facility] Hyaline casts LM Ql (Urine sed) 0 SEEN /lpf 0-5 [facility] Ketones Test strip Ql (U)Ord ered By: Steve Alexandre on 11-21-2024 Ketones Ql (U) Negative Negative [facility] - Chemistry and C hemistry - challengeOrdered By: Steve Alexandre on 11-21-2024 AST [Catalytic activity/Vol] 39 U/L High <32 [facility] M. tuberculosis tuberculin s marah IFN-g Ql (Bld)Ordered By: Otilia Cameron on 11-21-2024 TB Test (QFT) Antigen 1 0.13 IU/mL . [facility] Microscopic analysis of urin e for red blood cells (RBC)Ordered By: Steve Alexandre on 11-21-2024 Microscopic analysis of urine for red blood cells (RBC) 0-5 SEEN /hpf 0-5 [facility] Urine RBC 0-5 SEEN /hpf 0-5 [facility] Mucus LM Ql (Urine sed)Order ed By: Steve Alexandre on 11-21-2024 Mucus Ql (Urine sed) 0 SEEN /hpf [facility] Nitrite Test strip Ql (U)Ord ered By: Steve Alexandre on 11-21-2024 Nitrite Ql (U) Positive High Negative [facility] Potassium (Unsp spec) [Mass/ Vol]Ordered By: Steve Alexandre on 11-21-2024 Potassium [Moles/Vol] 3.8 mmol/L 3.3-5.1 [facility] Potassium measurement (mass/ volume)Ordered By: Steve Alexandre on 11-21-2024 Potassium (Unsp spec) [Mass/Vol] 3.8 mmol/L 3.3-5.1 [facility] Protein Test strip Ql (U)Ord ered By: Steve Alexandre on 11-21-2024 Protein Ql (U) 100 mg/dl High Negative [facility] Qualitative QuantiFERON-TB g old in tube testOrdered By: tOilia Cameron on 11-21-2024 M. tuberculosis tuberculin stim IFN-g Ql (Bld) 0.13 IU/mL . [facility] Quantiferon-TB Gold Plus gloria tOrdered By: Otilia Cameron on 11-21-2024 TB Test (QFT) Comment . [facility] Comment on above: QuantiFERON-TB Gold Plus is [...] Test (QFT) Antigen 2 0.12 IU/mL . [facility] TB Test (QFT) Mitogen > 10.00 IU/mL . [facility] TB Test (QFT) Nil 0.15 IU/mL . [facility] TB Test (QFT) Positive Criteria Negative Negative [facility] Comment on above: No response to M [...] the productionof interferon gamma. Chemiluminescence immunoassaymethodologyPerformed at: [employer] [address] [id number] Director: Edin Prater PhD, Phone: [phone] Serum creatinine measurement (mass/volume)Ordered By: Steve Alexandre on 11-21-2024 Creatinine [Mass/Vol] 0.97 mg/dL 0.70-1.20 [facility] Serum globulin measurementOr dered By: Steve Alexandre on 11-21-2024 Globulin (S) [Mass/Vol] 2.7 g/dL 2.2-4.2 [facility] Serum glucose measurement (m ass/volume)Ordered By: Steve Alexandre on 11-21-2024 Glucose [Mass/Vol] 98 mg/dL 70-99 [facility] Serum or plasma alanine hernadez otransferase (ALT) measurementOrdered By: Steve Alexandre on 11-21-2024 ALT [Catalytic activity/Vol] 43 U/L High <35 [facility] Serum or plasma albumin nereida urement (mass/volume)Ordered By: Steve Alexandre on 11-21-2024 Albumin [Mass/Vol] 4.3 g/dL 3.4-4.8 [facility] Serum or plasma albumin/glob ulin mass ratioOrdered By: Steve Alexandre on 11-21-2024 Albumin/Globulin [Mass ratio] 1.6 {ratio} 0.9-2.4 [facility] Serum or plasma alkaline wilfredo sphatase measurementOrdered By: Brittanydaniela Marcumjacobo on 11-21-2024 ALP [Catalytic activity/Vol] 61 U/L 35-104 [facility] Serum or plasma calcium nereida urement (mass/volume)Ordered By: Steve Jossuekellyivan on 11-21-2024 Calcium [Mass/Vol] 9.4 mg/dL 7.6-11.0 [facility] Serum or plasma urea nitroge n measurement (mass/volume)Ordered By: Steve Jossuekellyivan on 11-21-2024 Urea nitrogen [Mass/Vol] 16 mg/dL 4-19 [facility] Sodium levelOrdered By: Hiram real Jossuejacobo on 11-21-2024 Sodium [Moles/Vol] 135 mmol/L 133-145 [facility] Squamous epithelial cells de tection in urine sediment by light microscopyOrdered By: Steve Jossuejacobo on 11-21-2024 Epithelial cells.squamous LM Ql (Urine sed) 0-5 SEEN /hpf 5-10 [facility] Total proteinOrdered By: Jersey bradford Jossuejacobo on 11-21-2024 Protein [Mass/Vol] 6.9 g/dL 5.9-8.4 [facility] Urinalysis, Completeon 11-21 BACTERIA 2+ /hpf Normal None Seen [facility] Comment on above: Order Comment: COLOR OF URINE MAY AFFECT DIPSTICK RESULTS. INSOLE BEVELER TO SPECIFY Performed By: #### L 400.0001, M1 #### [facility] [address] [place], [address] CAST,HYALINE 0 SEEN Normal 0-5 [facility] Comment on above: Order Comment: COLOR OF URINE MAY AFFECT DIPSTICK RESULTS. INSOLE BEVELER TO SPECIFY Performed By: #### L 400.0001, M1.0 #### [facility] [address] [place], [address] EPI,SQUAMOUS 0-5 SEEN Normal 5-10 [facility] Comment on above: Order Comment: COLOR OF URINE MAY AFFECT DIPSTICK RESULTS. INSOLE BEVELER TO SPECIFY Performed By: #### L 400.0001, M100.2200 #### [facility] [address] [place], [address] RBC 0-5 SEEN Normal 0-5 [facility] Comment on above: Order Comment: COLOR OF URINE MAY AFFECT DIPSTICK RESULTS. INSOLE BEVELER TO SPECIFY Performed By: #### L 400.0001, M100.2200 #### [facility] [address] [place], [address] WBC 0-5 SEEN Normal 0-5 [facility] Comment on above: Order Comment: COLOR OF URINE MAY AFFECT DIPSTICK RESULTS. INSOLE BEVELER TO SPECIFY Performed By: #### L 400.0001, M100.2200 #### [facility] [address] [place], [address] Mucus Ql (Urine sed) 0 SEEN Normal [facility] Comment on above: Order Comment: COLOR OF URINE MAY AFFECT DIPSTICK RESULTS. INSOLE BEVELER TO SPECIFY Performed By: #### L 400.0001, M100.2200 #### [facility] [address] [place], [address] Urine blood detectionOrdered By: Steve Alexandre on 11-21-2024 Urine Occult Blood Negative Negative [facility] Urine clarityOrdered By: Jersey Alexandre on 11-21-2024 Clarity (U) Cloudy Clear [facility] Urine color determinationOrd ered By: Steve Alexandre on 11-21-2024 Color (U) Tamela Yellow [facility] Urine cultureOrdered By: Jersey Alexandre on 11-21-2024 Bacteria identified Cx Nom (U) Strep anginosus Abnormal [facility] Bacteria identified Cx Nom (U) Positive Abnormal [facility] Urine glucose detectionOrder ed By: Steve Alexandre on 11-21-2024 Glucose Ql (U) Normal mg/dl Normal [facility] Urine leukocyte esterase det ection by dipstickOrdered By: Steve Alexandre on 11-21-2024 Leukocyte esterase Test strip Ql (U) Negative Negative [facility] Urine pHOrdered By: Katie Alexandre on 11-21-2024 pH (U) 5.0 [pH] 5.0 - 8.0 [facility] Urine sediment bacteria coun t by microscopy (number/high power field)Ordered By: Steve Alexandre on 11-21-2024 Bacteria LM.HPF (Urine sed) [#/Area] 2 /[HPF] None Seen [facility] Urine specific gravity measu rementOrdered By: Steve Alexandre on 11-21-2024 Specific gravity (U) [Rel density] 1.020 1.002-1.03 0 [facility] Urine urobilinogen measureme ntOrdered By: Steve Alexandre on 11-21-2024 Urobilinogen Ql (U) 8 mg/dl High Normal [facility] Urobilinogen Ql (U)Ordered B y: Steve Alexandre on 11-21-2024 Urobilinogen (U) [Mass/Vol] 8 mg/dL High Normal [facility] Vitamin D, 25-hydroxyOrdered By: Steve Alexandre on 11-21-2024 Vitamin D 25-Hydroxy 58.9 ng/mL 30-100 [facility] Comment on above: Vitamin D StatusDefi ciency: <20 ng/mL (50nmol/L)Insufficiency: 20-30 ng/mL (50-75 nmol/L)Sufficiency: 30-100 ng/mL (75-250 nmol/L)Toxicity: >100 ng/mL (>250 nmol/L) Vitamin D,25 Hydroxyon 11-21 Vitamin D 25-OH 58.9 ng/mL Normal 30-100 [facility] Comment on above: Result Comment: Cee min D Status Deficiency: <20 ng/mL (50nmol/L) Insufficiency: 20-30 ng/mL (50-75 nmol/L) Sufficiency: 30-100 ng/mL (75-250 nmol/L) Toxicity: >100 ng/mL (>250 nmol/L) Performed By: #### L 500.2500 #### [facility] [address] [place], [address] White blood cell countOrdere d By: Steve Alexandre on 11-21-2024 Urine WBC 0-5 SEEN /hpf 0-5 [facility] White blood cell count 0-5 SEEN /hpf 0-5 [facility] Pulmonary Visit Reporton Pulmonary Visit Report [facility] [place] [address] [place] [address] OFFICE VISIT Date of Service: 11/15/24 MR#: [id number] Acct: [id number] Name: ALMA XIONG Rep #: [id number] : 1950 Provider: Dina Edmondson NP Age/Sex: 74/F [place] [facility] [place] Status: Signed Assessment and Plan Assessment and [...] She reports that she did travel to [place] last summer and her friends noticed her [...] for suppl (more content not included)... Normal [facility] Anion gap in Serum or Plasma Ordered By: Steve Alexandre on 11-03-2024 Anion gap [Moles/Vol] 12 mmol/L - [facility] BUN/creatinine ratioOrdered By: Steve Alexandre on 11-03-2024 Urea nitrogen/Creatinine [Mass ratio] 15.5 mg/mg 10- [facility] Bilirubin, totalOrdered By: Steve Alexandre on 11-03-2024 Bilirubin [Mass/Vol] 0.51 mg/dL 0.00-1.30 [facility] Calculated very low density lipoprotein (VLDL) cholesterol measurementOrdered By: Steve Alexandre on 11-03-2024 Calculated very low density lipoprotein (VLDL) cholesterol measurement 30 mg/dL - [facility] VLDL Cholesterol 30 mg/dL [facility] Carbon dioxide, total [Moles /volume] in Central venous bloodOrdered By: Steve Alexandre on 11-03-2024 CO2 [Moles/Vol] 25.0 mmol/L 21.0-32.0 [facility] Chloride assayOrdered By: Julieth Alexandre on 11-03-2024 Chloride [Moles/Vol] 101 mmol/L 98-108 [facility] Comprehensive Metabolic Prof ilon 11-03-2024 Albumin [Mass/Vol] 4.3 g/dL Normal 3.4-4.8 [facility] Comment on above: Performed By: #### L 500.7890, L500.4050, L501.9520 ####[facility] [address] [place], [address] Albumin/Globulin [Mass ratio] 1.6 {ratio} Normal 0.9-2.4 [facility] Comment on above: Performed By: #### L 500.4100, L500.4050, L501.9520 ####[facility] [address] [place], [address] ALK PHOS 53 U/L Normal 35-104 [facility] Comment on above: Performed By: #### L 500.4100, L500.4050, L501.9520 ####[facility] [address] [place], [address] ALT [Catalytic activity/Vol] 46 U/L High <=34 [facility] Comment on above: Performed By: #### L 500.4100, L500.4050, L501.9520 ####[facility] [address] [place], [address] AST [Catalytic activity/Vol] 33 U/L High <=31 [facility] Comment on above: Performed By: #### L 500.4100, L500.4050, L501.9520 ####[facility] [address] [place], [address] Bilirubin [Mass/Vol] 0.51 mg/dL Normal 0.00-1.30 [facility] Comment on above: Performed By: #### L 500.4100, L500.4050, L501.9520 ####[facility] [address] [place], [address] BUN/CRE 15.5 RATIO Normal 10-20 [facility] Comment on above: Performed By: #### L 500.4100, L500.4050, L501.9520 ####[facility] [address] [place], [address] Calcium [Mass/Vol] 10.2 mg/dL Normal 7.6-11.0 [facility] Comment on above: Performed By: #### L 500.4100, L500.4050, L501.9520 ####[facility] [address] [place], [address] Chloride [Moles/Vol] 101 mmol/L Normal 98-108 [facility] Comment on above: Performed By: #### L 500.4100, L500.4050, L501.9520 ####[facility] [address] [place], [address] CO2 [Moles/Vol] 25.0 mmol/L Normal 21.0-32.0 [facility] Comment on above: Performed By: #### L 500.4100, L500.4050, L501.9520 ####[facility] [address] [place], [address] Creatinine [Mass/Vol] 0.97 mg/dL Normal 0.70-1.20 [facility] Comment on above: Performed By: #### L 500.4100, L500.4050, L501.9520 ####[facility] [address] [place], [address] GAP 12 Normal 5-15 [facility] Comment on above: Performed By: #### L 500.4100, L500.4050, L501.9520 ####[facility] [address] [place], [address] GFR/1.73 sq M.predicted among non-blacks MDRD (S/P/Bld) [Vol rate/Area] 62 mL/min/{1.73_m2} Normal >60 [facility] Comment on above: Result Comment: mL/m in/1.73m2 CKD-EPI Creatinine Equation (2020) Performed By: #### L 500.4100, L500.4050, L501.9520 ####[facility] [address] [place], [address] Globulin (S) [Mass/Vol] 2.7 g/dL Normal 2.2-4.2 [facility] Comment on above: Performed By: #### L 500.4100, L500.4050, L501.9520 ####[facility] [address] [place], [address] Glucose [Mass/Vol] 134 mg/dL High 70-99 [facility] Comment on above: Performed By: #### L 500.4100, L500.4050, L501.9520 ####[facility] [address] [place], [address] Potassium [Moles/Vol] 3.8 mmol/L Normal 3.3-5.1 [facility] Comment on above: Performed By: #### L 500.4100, L500.4050, L501.9520 ####[facility] [address] [place], [address] Sodium [Moles/Vol] 138 mmol/L Normal 133-145 [facility] Comment on above: Performed By: #### L 500.4100, L500.4050, L501.9520 ####[facility] [address] [place], [address] T PROT 7.0 g/dL Normal 5.9-8.4 [facility] Comment on above: Performed By: #### L 500.4100, L500.4050, L501.9520 ####[facility] [address] [place], [address] Urea nitrogen [Mass/Vol] 15 mg/dL Normal 4-19 [facility] Comment on above: Performed By: #### L 500.4100, L500.4050, L501.9520 ####[facility] [address] [place], [address] GFR/1.73 sq M.predicted yvan g non-blacks MDRD (S/P/Bld) [Vol rate/Area]Ordered By: Steve Alexandre on 11-03-2024 Estimated GFR (MDRD) Non-Af Amer 62 >60 [facility] Comment on above: mL/min/1.73m2 CKD-EP I Creatinine Equation (2020) Glomerular filtration rate ( GFR) estimation/1.73 sq m using serum, plasma, or whole bOrdered By: Steve Alexandre on 11-03-2024 GFR/1.73 sq M.predicted among non-blacks MDRD (S/P/Bld) [Vol rate/Area] 62 mL/min/{1.73_m2} >60 [facility] Comment on above: mL/min/1.73m2 CKD-EP I Creatinine Equation (2020) Internal Medicine Office Vis itorosalia 11-03-2024 Internal Medicine Office Visit [facility] [place] [address] [place] [address] OFFICE VISIT Date of Service: 11/03/24 MR#: [id number] Acct: [id number] Name: ALMA XIONG Rep #: [id number] : 1950 Provider: Dr. Steve lerma MD Age/Sex: 74/F [place] [facility] Status: Signed Intake Vital Signs 06/14/24 11:09 [...] M FU Chief Complaint: Follow-up chronic conditions Social Problems Specialist Required: No Accompanied by: Self Is patient [...] year?: No Nurse's Note: 3 month fu [facility] Medical History Thyroid disease Pharyngitis Loss of [...] stable. R (more content not included)... Normal [facility] LDL calc ser/plasOrdered By: Steve Alexandre on 11-03-2024 Cholesterol in LDL [Mass/Vol] 100 mg/dL [facility] Comment on above: Csgvainsyb=537-590 m g/dL & Higher Btvp=227 mg/dL or greater LDL Cholesterol, Calculated 100 mg/dL [facility] Comment on above: Blxacnrcea=754-466 m g/dL & Higher Ygyr=626 mg/dL or greater Laboratory - Chemistry and C hemistry - challengeOrdered By: Steve Alexandre on 11-03-2024 AST [Catalytic activity/Vol] 33 U/L High <32 [facility] Lipid Profileon 11-03-2024 CHOL:HDL 4.05 Normal [facility] Comment on above: Performed By: #### L 500.4100, L500.4050, L501.9520 ####[facility] [address] [place], [address] Cholesterol [Mass/Vol] 173 mg/dL Normal <=200 [facility] Comment on above: Result Comment: Chol esterol level, Desirable <200 mg/dL Borderline high cholesterol 200-239 mg/dL High cholesterol >=240 mg/dL Recommendations of the NCEP Adult Treatment Panel for the following risk-cutoff thresholds for the [place] population. Performed By: #### L 500.4100, L500.4050, L501.9520 ####[facility] [address] [place], [address] Cholesterol in HDL [Mass/Vol] 43 mg/dL Normal [facility] Comment on above: Result Comment: Hina onal Cholesterol Education Program (NCEP) guidelines: <40 mg/dL: Low HDL-cholesterol (major risk factor for CHD) >= 60 mg/dL: High HDL-cholesterol (negative risk factor for CHD) HDL-cholesterol is affected by a number of factors, e.g. smoking, exercise, hormones, sex and age. Performed By: #### L 500.4100, L500.4050, L501.9520 ####[facility] [address] [place], [address] Cholesterol in LDL [Mass/Vol] 100 mg/dL Normal [facility] Comment on above: Result Comment: Bord tmvbaw=947-145 mg/dL Higher Dlmu=785 mg/dL or greater Performed By: #### L 500.4100, L500.4050, L501.9520 ####[facility] [address] [place], [address] Cholesterol in VLDL [Mass/Vol] 30 mg/dL Normal 5-40 [facility] Comment on above: Performed By: #### L 500.4100, L500.4050, L501.9520 ####[facility] [address] [place], [address] Triglyceride [Mass/Vol] 150 mg/dL Normal [facility] Comment on above: Result Comment: The drugs N-Acetylcysteine and Metamizole may falsely depress this assay. Normal range: <150 mg/dL Borderline High: 150-199 mg/dL High: 200-499 mg/dL Very High: >500 mg/dL Performed By: #### L 500.4100, L500.4050, L501.9520 ####[facility] [address] [place], [address] Potassium (Unsp spec) [Mass/ Vol]Ordered By: Steve Alexandre on 11-03-2024 Potassium [Moles/Vol] 3.8 mmol/L 3.3-5.1 [facility] Potassium measurement (mass/ volume)Ordered By: Steve Alexandre on 11-03-2024 Potassium (Unsp spec) [Mass/Vol] 3.8 mmol/L 3.3-5.1 [facility] Screening total cholesterol/ high density lipoprotein (HDL) cholesterol ratioOrdered By: Steve Alexandre on 11-03-2024 Cholesterol.total/Cho lesterol in HDL [Mass ratio] 4.05 {ratio} [facility] Serum creatinine measurement (mass/volume)Ordered By: Steve Alexandre on 11-03-2024 Creatinine [Mass/Vol] 0.97 mg/dL 0.70-1.20 [facility] Serum globulin measurementOr dered By: Steve Alexandre on 11-03-2024 Globulin (S) [Mass/Vol] 2.7 g/dL 2.2-4.2 [facility] Serum glucose measurement (m ass/volume)Ordered By: Steve Alexandre on 11-03-2024 Glucose [Mass/Vol] 134 mg/dL High 70-99 [facility] Serum or plasma alanine hernadez otransferase (ALT) measurementOrdered By: Steve Alexandre on 11-03-2024 ALT [Catalytic activity/Vol] 46 U/L High <35 [facility] Serum or plasma albumin nereida urement (mass/volume)Ordered By: Steve Alexandre on 11-03-2024 Albumin [Mass/Vol] 4.3 g/dL 3.4-4.8 [facility] Serum or plasma albumin/glob ulin mass ratioOrdered By: [facility] 11-03-2024 Albumin/Globulin [Mass ratio] 1.6 {ratio} 0.9-2.4 [facility] Serum or plasma alkaline wilfredo sphatase measurementOrdered By: michael Alexandre 11-03-2024 ALP [Catalytic activity/Vol] 53 U/L 35-104 [facility] Serum or plasma calcium nereida urement (mass/volume)Ordered By: Steve Alexandre 11-03-2024 Calcium [Mass/Vol] 10.2 mg/dL 7.6-11.0 [facility] Serum or plasma cholesterol in HDL measurement (mass/volume)Ordered By: [facility] Marcumivan 11-03-2024 Cholesterol in HDL [Mass/Vol] 43 mg/dL >40 [facility] Comment on above: National Cholesterol Education Program (NCEP) guidelines:<40 mg/dL: Low HDL-cholesterol (major risk factor for CHD)>= 60 mg/dL: High HDL-cholesterol (negative risk factor for CHD)HDL-cholesterol is affected by a number of factors, e.g. smoking, exercise, hormones, sex and age. Serum or plasma cholesterol measurement (mass/volume)Ordered By: [facility] 11-03-2024 Cholesterol [Mass/Vol] 173 mg/dL <201 [facility] Comment on above: Cholesterol level, D esirable <200 mg/dLBorderline high cholesterol 200-239 mg/dLHigh cholesterol >=240 mg/dLRecommendations of the NCEP Adult Treatment Panel for the following risk-cutoff thresholds for the [place] population. Serum or plasma urea nitroge n measurement (mass/volume)Ordered By: Steve Alexandre 11-03-2024 Urea nitrogen [Mass/Vol] 15 mg/dL 4-19 [facility] Sodium levelOrdered By: Hiram gurrolahavenivan Alexandre 11-03-2024 Sodium [Moles/Vol] 138 mmol/L 133-145 [facility] TSH DL <= 0.005 mIU/L QnOrde red By: Hiramnanydaniela Alexandre on 11-03-2024 Thyroid Stimulating Hormone (TSH) 3.630 uIU/mL 0.300-4.20 0 [facility] TSH Qn 3.630 uIU/mL 0.300-4.20 0 [facility] Thyroid Stim Hormone (TSH)on 11-03-2024 TSH 3.630 uIU/mL Normal 0.300-4.20 0 [facility] Comment on above: Performed By: #### L 500.4100, L500.4050, L501.9520 ####[facility] [address] [place], [address] Total proteinOrdered By: Jersey bricedaniela Alexandre on 11-03-2024 Protein [Mass/Vol] 7.0 g/dL 5.9-8.4 [facility] Triglycerides measurementOrd ered By: Hiramnanydaniela Alexandre on 11-03-2024 Triglyceride [Mass/Vol] 150 mg/dL <199 [facility] Comment on above: The drugs N-Acetylcy steine and Metamizole may falsely depress this assay. Normal range: <150 mg/dLBorderline High: 150-199 mg/dLHigh: 200-499 mg/dLVery High: >500 mg/dL 6 Minute Walk Teston 025 6 Minute Walk Test y [facility] Services/Neurology [address] [place] [address] MR#: [id number] Acct: [id number] Name: ALMA XIONG Rep #: [id number] : 1950 74 From: Thai Hurst DO Referring Dr: Thai Hurst DO Status: REG CLI Location: PSN Date: Sex: F C PSN 6 Minute Walk Test 6 Minute Walk Test 6 Minute Walk Test: 6 Minute Walk Test PSN:6-Minute Walk Test Start: 09/19/24 09:16 Freq: Status: Active Protocol: RESP.6MINW Document 09/19/24 09:17 (Rec: 09/19/24 09:19 JR [id number]) 6 Minute Walk Test Date Performed 09/19/24 [...] Date Dictated: 09/25/24 1209 Date Transcribed: 09/25/241208 Records And Tape Recordings Engineer: Dr. Thai Hurst DO Signed Normal [facility] Orthopedic Visit Reporton Orthopedic Visit Report [facility] [address] [place] [address] [address] [place] [address] OFFICE VISIT Date of Service: 09/22/24 MR#: [id number] Acct: [id number] Name: ALMA XIONG Rep #: [id number] : 1950 Provider: Dr. Yordan Shen MD Age/Sex: 74/F [place] [facility] [place] Status: Signed Intake Vital Signs 08/23/24 08:08 [...] the past year?: Yes (5-6 months ago) PFSH Medical History Thyroid disease Pharyngitis Loss of [...] years ago in April on [place] amelia irvin. She was trying to move a bed and it didn't move and she felt something almost instantly. She has tried client care manager shortly after this happened and as soon as they pushed down on her back she felt something weird. She did not get any relief from the chiropractor. Patient has been a patient of [facility] so she had tried to get in with Dr. Ch so she was referred here. She has tried pain management and had 2 injections and they did not give her any relief. The last injection was in 2019. She describes the pain right in her midback and it radiate (more content not included)... Normal [facility] Thoracic Spine 2 Viewson Thoracic Spine 2 Views [facility] [address] [place] [address] Thoracic Spine 2 Views MR#: [id number] Acct: [id number] Name: ALMA XIONG Rep #: [id number] : 1950 F 74 From: Sean Jaime MD PCP: Dr. Steve Alexandre MD Status: DEP AMB Study: Thoracic Spine 2 Views Date of Exam: 09/22/24 Exam# [id number] Ordering Dr: Jaelyn Llanes PROCEDURE: THORACIC SPINE [...] CC: CHEVY Loredo; Dr. Steve Alexandre MD Records And Tape Recordings Engineer: Signed Normal [facility] Echo Completeon 09-19-2024 Echo Complete [facility] [address] [place] [place] [address] Echo Complete 09/19/24 0825 MR#: [id number] Acct: [id number] Name: ALMA XIONG Rep #: [id number] : 1950 74 From: Kalyan Adler MD Attending Dr: Dr. Thai Hurst, DO Status: REG C Ordering Dr: Thai Hurst DO Date: 09/19/24 Location: [facility] Sex: F C Admitted: Reason For Study [...] Physician: Steve Alexandre Performed By: Ciarra Xiong RDCS 09/19/24 1018 Date Kalyan Adler MD CC: Dr. Thai Hurst DO; Dr. Steve Alexandre MD Date Dictated: 09/19/2425 Date Transcribed: 09/19/24 101 Records And Tape Recordings Engineer: Signed Normal [facility] Pulmonary Visit Reporton Pulmonary Visit Report [facility] of [address] [place] [address] OFFICE VISIT Date of Service: 08/23/24 MR#: [id number] Acct: [id number] Name: ALMA XIONG DANNIE Rep #: [id number] : 1950 Provider: Dr. Thai Hurst DO Age/Sex: 74/F [place] [facility] [place] Status: Signed Assessment and Plan Assessment and [...] Reasons: SOB/Pneumonia Chief Complaint: 3 M FU Social Problems Specialist Required: No Accompanied by: Self Allergies ciprofloxacin [...] mg PO BID gerd #60 caps 05/10/24 08/23/24 Rx release alendronate 70 mg tablet 70 mg PO QWEEK #12 TABLETS 05/22/24 08/23/24 Rx atenolol 50 mg tablet 50 mg PO DAILY #90 tabs 06/12/24 08/23/24 Rx albuterol sulfate 90 mcg/actuation 2 puff inhalation Q4H PRN 08/23/24 08/23/24 Rx aerosol inhaler shortness of breath or wheezing #8.5 grams Have you fallen in (more content not included)... Normal [facility] Automated blood erythrocyte countOrdered By: Liam Engle on 08-07-2024 RBC (Bld) [#/Vol] 4.96 10*6/uL Normal 4.2-5.4 [facility] Comment on above: Performed By: #### L 100.0500 #### [facility] [address] [place], [address] Automated blood hematocrit ( percentage)Ordered By: Liam Engle on 08-07-2024 Hematocrit (Bld) [Volume fraction] 40.8 % Normal 37-47 [facility] Comment on above: Performed By: #### L 100.0500 #### [facility] [address] [place], [address] CBC-Complete Blood Cnt No Di ffon 08-07-2024 RDW SD 43.3 fl Normal 35.1-43.9 [facility] Comment on above: Performed By: #### L 100.0500 #### [facility] [address], [address] Erythrocyte distribution wid th (RBC) [Ratio]Ordered By: Liam Engle on 08-07-2024 Erythrocyte distribution width (RBC) [Entitic vol] 43.3 fL 35.1-43.9 [facility] Erythrocyte distribution wid th ratioOrdered By: Liam Engle on 08-07-2024 Erythrocyte distribution width (RBC) [Ratio] 14.6 % Normal 11.6-14.6 [facility] Comment on above: Performed By: #### L 100.0500 #### [facility] [address] [place], [place], [id number] Hemoglobin measurementOrdere d By: Liam Engle on 08-07-2024 Hemoglobin (Bld) [Mass/Vol] 13.3 g/dL Normal 12.0-15.0 [facility] Comment on above: Performed By: #### L 100.0500 #### [facility] [address], [address] MCV (mean corpuscular volume ) determinationOrdered By: Liam Engle on 08-07-2024 MCV (RBC) [Entitic vol] 82.3 fL Normal 81-99 [facility] Comment on above: Performed By: #### L 100.0500 #### [facility] [address] [facility] [place], [address] MR/POSTOP.ANEon 08-07-2024 MR/POSTOP.ANE [facility] Medical Records Department [address] [place] [address] Anesthesia Postop Eval I 08/07/24 1133 MR#: [id number] Acct: [id number] Name: ALMA XIONG Rep #: [id number] : 1950 74 From: Delaney Laura PCP: Dr. Steve Alexandre MD Status:REG SDC Y Race: C Location: [place] [address] Anesthesia: Postop Eval I Current Vital Signs [...] Delaney Marroquin Signature: Date CC: Signed Normal [facility] MR/VWOQNPRN0fh 08-07-2024 MR/POSTOPAN2 [facility] Medical Records Department [address] [place] [address] Anesthesia Postop Eval II 08/07/24 1159 MR#: [id number] Acct: [id number] Name: ALMA XIONG DANNIE Rep #: [id number] : 1950 74 From: Terry Tobar MD PCP: Dr. Steve Alexandre MD Status:REG SDC Y Race: C Location: [place] [address] Anesthesia Postop Eval I Sum Postop Eval Completion status Anesthesia document: Postop Eval 1 completed: Yes Anesthesia Postop Eval I Summary Anesthesia Postop Eval I Summary: Anesthesia Postop Eval I: Assessment Summary Airway patent Yes 08/07/24 11:33 DETAIL TECHNICIAN.CSIR Spontaneous unlabored Yes 08/07/24 11:33 DETAIL TECHNICIAN.CSIR respirations Mental status nausea No 08/07/24 11:33 DETAIL TECHNICIAN.CSIR Vomiting No 08/07/24 11:33 DETAIL TECHNICIAN.CSIR Anesthesia Postop Eval I: Fluid Summary Crystalloid volume administer 800 08/07/24 11:33 DETAIL TECHNICIAN.CSIR (ml) Colloids volume administered ( ml) Blood Product volume administered (ml) Total IV fluid infused 800 08/07/24 11:33 DETAIL TECHNICIAN.CSIR Anesthesia Postop Eval I: Summary Notes Anesthesia Complication No 08/07/24 11:33 DETAIL TECHNICIAN.CSIR Anesthesia Complication Comment: Post-operative progress note Anesthesia: Postop Eval II Evaluation Mental status: Awake Pain Level: 0 nausea: No Vomiting: No 08/07/24 1159 Date Terry Marroquin Signature: Date CC: Signed Normal [facility] Mean corpuscular hemoglobin (MCH) determinationOrdered By: Liam Engle on 08-07-2024 MCH (RBC) [Entitic mass] 26.8 pg Low 27.0-32.0 [facility] Comment on above: Performed By: #### L 100.0500 #### [facility] [address] [place], [address] Mean corpuscular hemoglobin concentration (MCHC) determinationOrdered By: Liam Engle on 08-07-2024 MCHC (RBC) [Mass/Vol] 32.6 g/dL Normal 32-36 [facility] Comment on above: Performed By: #### L 100.0500 #### [facility] [address] [place], [address] Mean platelet volume determi nationOrdered By: Liam Engle on 08-07-2024 Platelet mean volume (Bld) [Entitic vol] 10.9 fL Normal 6.2-12.0 [facility] Comment on above: Performed By: #### L 100.0500 #### [facility] [address] [place], [address] Operative Reporton 5 Operative Report [facility] Medical Records Department [address] [place] [address] Operative Report 08/07/24 1042 MR#: [id number] Acct: [id number] Name: ALMA XIONG Rep #: [id number] : 1950 74 From: Liam Engle MD PCP: Dr. Steve Alexandre MD Status:[facility] Location: [place] [address] Operative Report (Standard) Operative Information Date of Procedure: 08/07/24 Pre-Operative Diagnosis: Hypopharyngeal neoplasm Post-Operative Diagnosis: same Surgery/Procedure Performed: micro direct laryngoscopy with excision of hypopharyngeal lesion order worker: No Type of Anesthesia: General RN Documented [...] was then placed in suspension on the [place] stand. The operating microscope was then brought [...] MD; Dr. Liam Engle MD Signed Normal [facility] Platelet countOrdered By: Diallo Engle on 08-07-2024 Platelets (Bld) [#/Vol] 255 10*3/uL Normal 150-450 [facility] Comment on above: Performed By: #### L 100.0500 #### [facility] [address] [place], [address] Surgery Specimen Level Tommy 08-07-2024 Surgery Specimen Level IV -------- Patient Age/Sex Location Account Attending Physician -------- ALMA XIONG 74/F [facility] [id number] Dr. Liam Engle MD -------- Specimen: [id number] Received: 08/07/24 Status: JANEE Novak Num: [id number] Spec Type: LARYNX BX Subm Dr: Dr. 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 Negative for malignancy. See comment. . 08/09/2024 COMMENT The findings may represent benign adenoid tissue. Correlation with clinical findings and appropriate follow up are necessary. MICROSCOPIC DESCRIPTION Slides are reviewed. GROSS DESCRIPTION Received in fixative is one container labeled with the patient's name and designated Excision posterior hypopharyngeal wall mass." The specimen consists of a piece of celeste soft tissue measuring 0.6 x 0.4 x 0.1cm. The entire specimen is submitted in one cassette. . 08/08/2024 TC:5 CPT:32293 -------- Patient Age/Sex Location Account Attending Physician -------- ALMA XIONG 74/F [facility] [id number] Dr. Liam Engle MD -------- Signed (signature on file) Dr. Preet Menard MD 08/09/24 1058 -------- Normal [facility] Comment on above: Performed By: #### L 100.0500 #### [facility] [address], [place], [id number] White blood cell (WBC) count Ordered By: Liam Engle on 08-07-2024 WBC (Bld) [#/Vol] 6.8 10*3/uL Normal 4.4-11.0 [facility] Comment on above: Performed By: #### L 100.0500 #### [facility] [address], [place], [address] MR/PATEstefani 08-04-2024 MR/PATZELDA [facility] Medical Records Department [address] [place] [address] PAT - Anesthesia 08/04/24 1543 MR#: [id number] Acct: [id number] Name: ALMA XIONG Rep #: [id number] : 1950 74 From: Mk Osborn MD PCP: Dr. 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 Hx Hospitalization No 08/04/24 09:56 Any [...] take am of surgery PONV PONV - light rail operator: PONV - light rail operator Female Yes 08/04/24 09:56 HX of [...] 06/14/24 11:09 Respiratory Assessment Respiratory Assessment - light rail operator: Respiratory Tract Infection Hx - light rail operator Hx Respiratory Tract Infection No 08/04/24 09:56 STOP Sleep Apnea STOP Sleep Apnea - light rail operator: STOP Sleep Apnea - light rail operator Hx Hypertension Yes: CONTROLLED WITH MED [...] Tobacco Use History Tobacco Use History - light rail operator: Tobacco Use History - light rail operator Tobacco Use Smoking Status Former smoker 08/04/24 09:56 Hx Tobacco Use No 08/04/24 09:56 Years Smoking Packs Smoked per Day Smoking Cessation Date was No - quit smoking greater 08/04/24 09:56 within the last 15 years than 15 years ago Hx Smoking Cessation Date Hx Smoking Cessation No 08/04/24 09:56 Counseling Hematologic Medial History Hematologic Hx - light rail 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 Normal [facility] Basic Metabolic Profile (BMP )on 06-14-2024 BUN/CRE 19.2 RATIO Normal 10-20 [facility] Comment on above: Performed By: #### L 500.2500 #### [facility] [address] [place], [address] CA,Total 9.1 mg/dL Normal 8.5-10.1 [facility] Comment on above: Performed By: #### L 500.2500 #### [facility] [address] [place], [address] Chloride [Moles/Vol] 104 mmol/L Normal 98-107 [facility] Comment on above: Performed By: #### L 500.2500 #### [facility] [address] [place], [address] CO2 [Moles/Vol] 27.0 mmol/L Normal 21.0-32.0 [facility] Comment on above: Performed By: #### L 500.2500 #### [facility] [address] [place], [address] Creatinine [Mass/Vol] 0.94 mg/dL Normal 0.55-1.02 [facility] Comment on above: Result Comment: The validity of the calculated GFR GFRAA in patients over 70 years has not been determined. Clinical correlation is essential. Performed By: #### L 500.2500 #### [facility] [address] [place], [address] EST GFR - AA 76 mL/min Normal >60 [facility] Comment on above: Result Comment: Afri can Colombian GFR Calc Performed By: #### L 500.2500 #### [facility] [address] [place], [address] GAP 7 Normal 5-15 [facility] Comment on above: Performed By: #### L 500.2500 #### [facility] [address] [place], [address] GFR/1.73 sq M.predicted among non-blacks MDRD (S/P/Bld) [Vol rate/Area] 63 mL/min/{1.73_m2} Normal >60 [facility] Comment on above: Result Comment: Non- GFR Calc Performed By: #### L 500.2500 #### [facility] [address] [place], [address] Glucose [Mass/Vol] 129 mg/dL High 74-106 [facility] Comment on above: Result Comment: Fast ing Glucose result greater than or equal to 126 mg/dL suggests DIABETES MELLITUS per A.D.A. criteria. Performed By: #### L 500.2500 #### [facility] [address] [place], [address] Potassium [Moles/Vol] 4.1 mmol/L Normal 3.5-5.1 [facility] Comment on above: Performed By: #### L 500.2500 #### [facility] [address] [place], [address] Sodium [Moles/Vol] 138 mmol/L Normal 136-145 [facility] Comment on above: Performed By: #### L 500.2500 #### [facility] [address] [place], [address] Urea nitrogen [Mass/Vol] 18 mg/dL Normal 7-18 [facility] Comment on above: Performed By: #### L 500.2500 #### [facility] [address] [place], [address] Internal Medicine Office Vis margarito 06-14-2024 Internal Medicine Office Visit [facility] [address] [place] [address] [address] [place] [address] OFFICE VISIT Date of Service: 06/14/24 MR#: [id number] Acct: [id number] Name: ALMA XIONG Rep #: [id number] : 1950 Provider: Dr. Steve lerma MD Age/Sex: 74/F Location[place] [facility] Status: Signed Intake Vital Signs 03/10/24 10:29 [...] patient in pain?: Yes (2 bilateral knees "chronic" ) Allergies ciprofloxacin (From Cipro) Allergy (Intermediate, Verified 06/14/24 11:07) hives milk (dairy) Allergy (Verified 06/14/24 11:07) Food Allergy Medications ???Medication ???Instructions ???Recorded ???Confirmed ???Type acetaminophen 500 mg tablet 1,000 mg PO DAILY PRN Pain 09/14/22 06/14/24 History cholecalciferol (vitamin D3) 1,250 1,250 mcg PO GARZA #20 caps 06/11/23 06/14/24 Rx mcg (50,000 [...] past year?: Yes (x2 denies injury ) PFSH Medical History Loss of hearing Wears glasses [...] ENT EN (more content not included)... Normal [facility] EGD Reporton 05-04-2024 EGD Report [facility] Medical Records Department [address] [place] [address] EGD Report MR#: [id number] Acct: [id number] Name: ALMA XIONG Rep #: [id number] : 1950 74 From: Franco Tam DO PCP: Dr. Steve Alexandre MD Status:REG [facility] Patient Name: Alma Xiong Procedure Date: 05/04/2024 [...] Palatal polyp Procedure Code(s): --- Professional --- 50619, Esophagogastroduodenoscopy, flexible, transoral; with biopsy, single or multiple CPT copyright 2021 [employer]. All rights reserved. The codes documented in this report are preliminary and upon supervisor conditioning yard review may be revised t (more content not included)... Normal [facility] H Pylori (initial)on H Pylori (initial) -------- -------- Patient Age/Sex Location Account Attending Physician -------- ALMA XIONG 74/F EN [id number] Franco Tam DO -------- Specimen: [id number] Received: 05/05/24 Status: JANEE Novak Num: [id number] Spec Type: IMMUNO Subm Dr: Franco Tam, PHYSICIAN INSTITUTION [place] [address] SPECIMEN INFORMATION: Tissue Source: B- Gastric antrum biopsy Clinical Info: Esophageal stricture, eosinophilic esophagitis Specimen Number: [id number] CPT code: 16610 METHODOLOGY: Deparaffinized sections of prefer/formalin-fixed tissue or [...] developed and their performance characteristics determined by [facility]. They may not have been cleared or approved by the U.S. Food and Drug Administration. The FDA has determined that such clearance or approval is not necessary. The above immunohistochemical/dualISH markers are ordered and reviewed by the Pathologist. INTERPRETATION: B. Gastric antrum, biopsy: Negative for Helicobacter pylori organisms. 05/08/2024 Signed (signature on file) Dr. Preet Menard MD 05/09/24 1204 -------- Normal [facility] Comment on above: Performed By: #### L 100.0500 #### [facility] [address] [facility] [place], [address] MR/POSTOP.Jasper 05-04-2024 MR/POSTOP.MERCEDEZ [facility] Medical Records Department [address] [place] [address] Anesthesia Postop Eval I 05/04/24 1229 MR#: [id number] Acct: [id number] Name: ALMA XIONG Rep #: [id number] : 1950 74 From: Brian Ivey PCP: Dr. Steve Alexandre MD Status:REG SDC Y Race: C Location: [place] [address] Anesthesia: Postop Eval I Current Vital Signs [...] 1 completed: Yes 05/04/24 1230 Date Brian Uche Evanslyssa Signature: Date CC: Signed Normal [facility] MR/[id number] 05-04-2024 [facility] Medical Records Department [address] [place] [address] Anesthesia Postop Eval II 05/04/24 1227 MR#: [id number] Acct: [id number] Name: ALMA XIONG Rep #: [id number] : 1950 74 From: Yanick Arellano MD PCP: Dr. Steve Alexandre MD Status:REG SDC Y Race: C Location: [place] [address] Anesthesia Postop Eval I Sum Anesthesia Postop [...] Yanick Marroquin Signature: Date CC: Signed Normal [facility] Special Stain Group Ion 10-0 Special Stain Group I -------- Patient Age/Sex Location Account Attending Physician -------- ALMA XIONG 74/F EN [id number] Franco Tam DO -------- Specimen: [id number] Received: 05/04/24 Status: JANEE Novak Num: [id number] Spec Type: EGD BIOPSY Subm Dr: Franco Friend, DO HEADER OPERATION: EGD with biopsies PRE-OP DIAGNOSIS: Esophageal stricture, eosinophilic esophagitis TISSUE SUBMITTED: A- Random esophagus biopsy, B- Gastric antrum biopsy -------- MICROSCOPIC DIAGNOSIS A. Esophagus, random biopsy: Fragments of gastroesophageal mucosa with changes consistent with eosinophilic esophagitis. Mild chronic inflammation. Intestinal metaplasia (goblet cell metaplasia) not identified. See comment. B. Gastric antrum, biopsy: Mild gastritis. See microscopic description and comment. JOHN.mr 05/08/2024 COMMENT A. Increased number of eosinophils (more than 20 per high power field) are noted consistent with eosinophilic esophagitis. Alcian blue/PAS stain with matched control is used in the evaluation of the specimen. B. The results of immunohistochemistry for Helicobacter pylori will be reported separately ([id number]). Case has been reviewed in consultation with [...] Attending Physician -------- ALMA XIONG 74/F EN [id number] Franco Tam DO -------- "Gastric antrum biopsy." The specimen consists of multiple irregular fragments of light celeste soft tissue that in aggregate measure 1.0 x 0.5 x 0.1 cm. The specimen is totally submitted in one cassette. 05/05/2024 TC:3 CPT:21588i5,51996 -------- Patient Age/Sex Location Account Attending Physician -------- ALMA XIONG 74/F EN [id number] Franco Tam DO -------- Signed (signature on file) Dr. Preet Menard MD 05/09/24 1210 -------- Normal [facility] Comment on above: Performed By: #### L 100.0500 #### [facility] [address] [place], [address] [id number] 04-14-2024 BEEF 0.22 kU/L Abnormal Class 0/I [facility] Comment on above: Performed By: #### L 500.2500 #### [facility] [address] [place], [address] CHOCOLATE <0.10 Normal Class 0 [facility] Comment on above: Performed By: #### L 500.2500 #### [facility] [address] [place], [address] CODFISH <0.10 Normal Class 0 [facility] Comment on above: Performed By: #### L 500.2500 #### [facility] [address] [place], [address] COMMENT Comment Normal . [facility] Comment on above: Result Comment: Maggie paz of Specific IgE Class Description of Class ----- < 0.10 0 Negative 0.10 - 0.31 0/I Equivocal/Low 0.32 - 0.55 I Low 0.56 - 1.40 II Moderate 1.41 - 3.90 III High 3.91 - 19.00 IV Very High 19.01 - 100.00 V Very High >100.00 Very High Performed By: #### L 500.2500 #### [facility] [address] [place], [address] CORN <0.10 Normal Class 0 [facility] Comment on above: Performed By: #### L 500.2500 #### [facility] [address] [place], [address] EGG, WHOLE 0.21 kU/L Abnormal Class 0/I [facility] Comment on above: Result Comment: Perf ormed at: [facility] - [facility] [address] [id number] High School Math Tutor: Lata Smalls MD, Phone: [phone] Performed By: #### L 500.2500 #### [facility] [address] [place], [place], [facility] MILK (COW) 2.22 kU/L Abnormal Class III [facility] Comment on above: Performed By: #### L 500.2500 #### [facility] [address] [place], [address] MUSSELS <0.10 Normal Class 0 [facility] Comment on above: Performed By: #### L 500.2500 #### [facility] [address] [place], [address] PEANUT <0.10 Normal Class 0 [facility] Comment on above: Performed By: #### L 500.2500 #### [facility] [address] [place], [address] PORK <0.10 Normal Class 0 [facility] Comment on above: Performed By: #### L 500.2500 #### [facility] [address] [place], [address] SALMON <0.10 Normal Class 0 [facility] Comment on above: Performed By: #### L 500.2500 #### [facility] [address] [place], [address] SHRIMP <0.10 Normal Class 0 [facility] Comment on above: Performed By: #### L 500.2500 #### [facility] [address] [place], [address] SOYBEAN <0.10 Normal Class 0 [facility] Comment on above: Performed By: #### L 500.2500 #### [facility] [address] [place], [address] TUNA <0.10 Normal Class 0 [facility] Comment on above: Performed By: #### L 500.2500 #### [facility] [address] [place], [address] WHEAT 0.44 kU/L Abnormal Class I [facility] Comment on above: Performed By: #### L 500.2500 #### [facility] [address] [place], [address] CBC W/Diff, Automatedon 09-0 9-4 Absolute Lymph 1.86 X10 3/uL Normal 0.83-4.51 [facility] Comment on above: Performed By: #### L 500.2500 #### [facility] [address] [place], [address] Absolute Neut 4.0 X10 3/uL Normal 2.0-7.7 [facility] Comment on above: Performed By: #### L 500.2500 #### [facility] [address] [place], [address] Basophils/100 WBC (Bld) 0.4 % Normal 0-1 [facility] Comment on above: Performed By: #### L 500.2500 #### [facility] [address] [place], [address] Eosinophils/100 WBC (Bld) 5.5 % High 0-5 [facility] Comment on above: Performed By: #### L 500.2500 #### [facility] [address] [place], [address] Erythrocyte distribution width (RBC) [Ratio] 14.6 % Normal 11.6-14.6 [facility] Comment on above: Performed By: #### L 500.2500 #### [facility] [address] [place], [address] Hematocrit (Bld) [Volume fraction] 44.8 % Normal 37-47 [facility] Comment on above: Performed By: #### L 500.2500 #### [facility] [address] [place], [address] Hemoglobin (Bld) [Mass/Vol] 14.5 g/dL Normal 12.0-15.0 [facility] Comment on above: Performed By: #### L 500.2500 #### [facility] [address] [place], [address] IG% 0.600 Normal 0.0-0.9 [facility] Comment on above: Result Comment: IG% - Immature Granulocytes (promyelocytes, myelocytes and metamyelocytes) > 1% indicates that a LEFT SHIFT is Present. Performed By: #### L 500.2500 #### [facility] [address] [place], [address] Lymphocytes/100 WBC (Bld) 27.8 % Normal 19-41 [facility] Comment on above: Performed By: #### L 500.2500 #### [facility] [address] [place], [address] MCH (RBC) [Entitic mass] 27.2 pg Normal 27.0-32.0 [facility] Comment on above: Performed By: #### L 500.2500 #### [facility] [address] [place], [address] MCHC (RBC) [Mass/Vol] 32.4 g/dL Normal 32-36 [facility] Comment on above: Performed By: #### L 500.2500 #### [facility] [address] [place], [address] MCV (RBC) [Entitic vol] 84.1 fL Normal 81-99 [facility] Comment on above: Performed By: #### L 500.2500 #### [facility] [address] [place], [address] Monocytes/100 WBC (Bld) 6.3 % Normal 0-10 [facility] Comment on above: Performed By: #### L 500.2500 #### [facility] [place], [address] Neutrophils/100 WBC (Bld) 59.4 % Normal 47-70 [facility] Comment on above: Performed By: #### L 500.2500 #### [facility] [address] [place], [address] Nucleated RBC (Bld) [#/Vol] 0 10*3/uL Normal 0-5 [facility] Comment on above: Performed By: #### L 500.2500 #### [facility] [address] [place], [address] Platelet mean volume (Bld) [Entitic vol] 10.4 fL Normal 6.2-12.0 [facility] Comment on above: Performed By: #### L 500.2500 #### [facility] [address] [place], [address] Platelets (Bld) [#/Vol] 271 10*3/uL Normal 150-450 [facility] Comment on above: Performed By: #### L 500.2500 #### [facility] [address] [place], [address] RBC (Bld) [#/Vol] 5.33 10*6/uL Normal 4.2-5.4 [facility] Comment on above: Performed By: #### L 500.2500 #### [facility] [address] [place], [address] RDW SD 44.2 fl High 35.1-43.9 [facility] Comment on above: Performed By: #### L 500.2500 #### [facility] [address] [place], [address] WBC (Bld) [#/Vol] 6.7 10*3/uL Normal 4.4-11.0 [facility] Comment on above: Performed By: #### L 500.2500 #### [facility] [address] [place], [place], [address] Gastroenterology Visit Repor ton 04-10-2024 Gastroenterology Visit Report [facility] [address] [place] [address] OFFICE VISIT Date of Service: 04/10/24 MR#: [id number] Acct: [id number] Name: ALMA XIONG Rep #: [id number] : 1950 Provider: CHEVY Bean Age/Sex: 74/F [place] [facility] Status: Signed Intake Vital Signs 03/10/24 10:29 [...] you fallen in the past year?: No [facility] Medical History (Updated 04/01/24 @ 19:17 by [...] to the office today for establishment with [facility]. She has a hx of esophageal stricture, [...] abdominal pain, n/v, constipation or diarrhea. Colonoscopy 2..; - Hemorrhoids found on perianal exam. - Diverticulosis in the sigmoid colon and in the descending colon. Biopsied. - The examination was otherwise normal EGD 2..20; - Esophageal mucosal changes consistent with eosinophilic [...] Appearance: average body habitus and well nourished [facility] Head: normal to inspection Ears: hearing [...] Plan ( (more content not included)... Normal [facility] Chest without Contraston Chest without Contrast [facility] Services [address] [place] [address] Chest without Contrast MR#: [id number] Acct: [id number] Name: ALMA XIONG Rep #: [id number] : 1950 F 74 From: Arcelia Wu MD PCP: Dr. Steve Alexandre MD Status: REG CLI Study: Chest without Contrast Date of Exam: 03/30/24 Exam# [id number] Ordering Dr: Steve Alexandre MD :[id number] EXAM: CT CHEST WITHOUT INTRAVENOUS CONTRAST CLINICAL [...] EDT , CC: Dr. 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, [address] CO2 [Moles/Vol] 30.0 mmol/L Normal 21.0-32.0 [facility] Comment on above: Performed By: #### L 500.2500 ####[facility] [address] [place], [address] Creatinine [Mass/Vol] 1.01 mg/dL Normal 0.55-1.02 [facility] Comment on above: Result Comment: The validity of the calculated GFR GFRAA in patients over 70 years has not been determined. Clinical correlation is essential. Performed By: #### L 500.2500 ####[facility] [address] [place], [address] EST GFR - AA 69 mL/min Normal >60 [facility] Comment on above: Result Comment: Afri can Colombian GFR Calc Performed By: #### L 500.2500 ####[facility] [address] [place], [address] GAP 6 Normal 5-15 [facility] Comment on above: Performed By: #### L 500.2500 ####[facility] [address] [place], [address] GFR/1.73 sq M.predicted among non-blacks MDRD (S/P/Bld) [Vol rate/Area] 57 mL/min/{1.73_m2} Low >60 [facility] Comment on above: Result Comment: Non- GFR Calc Performed By: #### L 500.2500 ####[facility] [address] [place], [address] Glucose [Mass/Vol] 67 mg/dL Low 74-106 [facility] Comment on above: Performed By: #### L 500.2500 ####[facility] [address] [place], [address] Potassium [Moles/Vol] 3.4 mmol/L Low 3.5-5.1 [facility] Comment on above: Performed By: #### L 500.2500 ####[facility] [address] [place], [address] Sodium [Moles/Vol] 139 mmol/L Normal 136-145 [facility] Comment on above: Performed By: #### L 500.2500 ####[facility] [address] [place], [place], [address] Urea nitrogen [Mass/Vol] 23 mg/dL High 7-18 [facility] Comment on above: Performed By: #### L 500.2500 ####[facility] [address] [place], [place], [address] Internal Medicine Office Vis iton 03-10-2024 Internal Medicine Office Visit [facility] [address] [place], [place] [address] OFFICE VISIT Date of Service: 03/10/24 MR#: [id number] Acct: [id number] Name: ALMA XIONG Rep #: [id number] : 1950 Provider: Dr. Steve lerma MD Age/Sex: 73/F [place] [facility] Status: Signed Intake Vital Signs 12/29/23 14:03 [...] Visit Reasons: FOLLOW UP Chief Complaint: f/u Social Problems Specialist Required: No Accompanied by: Self Is patient in pain?: No Allergies ciprofloxacin (From Cipro) Allergy (Intermediate, Verified 03/10/24 10:27) hives milk (dairy) Allergy (Verified 03/10/24 10:27) Food Allergy Medications ???Medication ???Instructions ???Recorded ???Confirmed ???Type acetaminophen 500 mg tablet 1,000 mg PO DAILY PRN Pain 02/13/23 08/09/24 History omeprazole 40 mg capsule,delayed 40 mg [...] History Smoking Status: Former smoker quit date: 01/01/78 Tobacco: How many years used: 5 second [...] or m (more content not included)... Normal [facility] ED Prov Noteon 12-04-2023 ED Prov Note HPI: 12/04/2023, Time: @NOWNR@ Alma Xiong is a 73 y.o. female presenting to [...] are negative. PAST HISTORY Past Medical History: @[facility]@ Past Surgical History: has no past surgical [...] degrees C) (Temporal) Resp 16 Ht 5' 3" Wt 81.6 kg (180 lb) LMP (LMP [...] times a day . Follow-up: [facility] [address] [facility] [id number] In 3 days Final Impression: 1. Acute cystitis without hematuria 2. Right leg pain (Please note that portions of this note were completed with a voice recognition program. Efforts were made to edit the dictations but occasionally words are mis-transcribed.) Radha Boyd MD 12/04/23 1333 AUTHENTICATED BY RADHA BOYD, ON 12/04/2023 13:33:[address] [facility] POC URINALYSIS DIPSTICK,AUTO - RALSon 12-04-2023 POC BILIRUBIN, URINE Moderate Abnormal Negative [facility] POC BLOOD, URINE Trace-intact Abnormal Negative [facility] POC GLUCOSE, URINE 250 mg/dL Abnormal Negative [facility] POC KETONES, URINE 15 mg/dL Abnormal Negative [facility] POC LEUKOCYTE ESTERASE, URINE Large Abnormal Negative [facility] POC NITRITE, URINE Positive Abnormal Negative [facility] POC PH, URINE 5.0 Normal 5.0-7.0 [facility] POC PROTEIN, URINE >=[address] [facility] POC SPECIFIC GRAVITY <= Normal 1.005-[address] [facility] POC UROBILINOGEN >=8.0 Abnormal < 2.0 [facility] Absolute lymphocyte countOrd ered By: Steve Alexandre on 11-22-2023 Lymphocytes Auto (Unsp spec) [#/Vol] 1.24 10*3/uL 0.83-4.51 [facility] Automated lymphocyte count a s percentage of total leukocytesOrdered By: Steve Alexandre on 11-22-2023 Lymphocytes/100 WBC Auto (Unsp spec) 22.5 % 19-41 [facility] Basophil percentageOrdered B y: Steve Alexandre on 11-22-2023 Basophils/100 WBC (Bld) 0.5 % 0-1 [facility] Bilirubin [Mass/Vol] 0.60 mg/dL 0.20-1.00 [facility] Comment on above: For patients on eltr ombopag therapy, use of Dimension [place] TBIL is not recommended. Chloride [Moles/Vol] 104 mmol/L 98-107 [facility] Cholesterol [Mass/Vol] 198 mg/dL <200 [facility] Comment on above: <200 mg/dL Desirable 200-240 mg/dL Borderline >240 mg/dL High Risk Eosinophils/100 WBC (Bld) 7.1 % 0-5 [facility] Glucose [Mass/Vol] 127 mg/dL 74-106 [facility] Comment on above: Fasting Glucose resu lt greater than or equal to 126 mg/dL suggests DIABETES MELLITUS per A.D.A. criteria. Hemoglobin (Bld) [Mass/Vol] 14.1 g/dL 12.0-15.0 [facility] Monocytes/100 WBC (Bld) 6.4 % 0-10 [facility] Neutrophils (Bld) [#/Vol] 3.5 10*3/uL 2.0-7.7 [facility] Neutrophils/100 WBC (Bld) 62.8 % 47-70 [facility] Potassium [Moles/Vol] 3.9 mmol/L 3.5-5.1 [facility] Protein [Mass/Vol] 7.2 g/dL 6.4-8.2 [facility] Sodium [Moles/Vol] 137 mmol/L 136-145 [facility] Triglyceride [Mass/Vol] 163 mg/dL <199 [facility] Comment on above: The drugs N-Acetylcy steine and Metamizole may falsely depress this assay.Serum Triglycerides Reference Interval Normal <150 mg/dL Borderline high 150 - 199 mg/dL High 200 - 499 mg/dL Very High > or = 500 mg/dL WBC (Bld) [#/Vol] 5.5 10*3/uL 4.4-11.0 [facility] Determination of erythrocyte mean corpuscular volume (MCV)Ordered By: Steve Alexandre on 11-22-2023 MCV (RBC) [Entitic vol] 84.1 fL 81-99 [facility] Erythrocyte distribution wid th ratioOrdered By: [facility] on 11-22-2023 Erythrocyte distribution width (RBC) [Ratio] 14.4 % 11.6-14.6 [facility] Erythrocyte distribution wid th standard deviationOrdered By: [facility]-2023 Erythrocyte distribution width (RBC) [Entitic vol] 43.8 fL 35.1-43.9 [facility] Hematocrit Auto (Bld) [Volum e fraction]Ordered By: [facility] on 11-22-2023 Hematocrit (Bld) [Volume fraction] 42.9 % 37-47 [facility] Immature granulocytes/100 WB C Auto (Bld)Ordered By: [facility] on 11-22-2023 Immature granulocytes/100 WBC (Bld) 0.700 % 0.0-0.9 [facility] Comment on above: IG% - Immature Granu locytes (promyelocytes, myelocytes and metamyelocytes) > 1% indicates that a LEFT SHIFT is Present. Laboratory - Chemistry and C hemistry - challengeOrdered By: [facility] on 11-22-2023 Albumin/Globulin [Mass ratio] 1.1 {ratio} 0.9-2.4 [facility] ALP [Catalytic activity/Vol] 52 U/L 45-117 [facility] ALT [Catalytic activity/Vol] 34 U/L 13-56 [facility] Cholesterol in HDL [Mass/Vol] 42 mg/dL >40 [facility] Comment on above: The drugs N-Acetylcy steine and Metamizole may falsely depress this assay. Reference Range HDL <40 mg/dL Low HDL Cholesterol HDL >or= 60 mg/dL High HDL Cholesterol Cholesterol in LDL [Mass/Vol] 123 mg/dL 0-130 [facility] CO2 [Moles/Vol] 29.0 mmol/L 21.0-32.0 [facility] Globulin (S) [Mass/Vol] 3.5 g/dL 2.2-4.2 [facility] Urea nitrogen/Creatinine [Mass ratio] 17.8 mg/mg 10-20 [facility] Laboratory - Hematology and Cell countsOrdered By: Steve Alexandre on 11-22-2023 MCH (RBC) [Entitic mass] 27.6 pg 27.0-32.0 [facility] MCHC (RBC) [Mass/Vol] 32.9 g/dL 32-36 [facility] Nucleated RBC/100 WBC (Bld) [Ratio] 0 % 0-5 [facility] Platelet mean volume (Bld) [Entitic vol] 11.2 fL 6.2-12.0 [facility] Platelets (Bld) [#/Vol] 247 10*3/uL 150-450 [facility] No Panel InformationOrdered By: Steve Alexandre on 11-22-2023 Estimated GFR (MDRD) Amer 65 mL/min >60 [facility] Comment on above: GFR Calc Estimated GFR (MDRD) Non-Af Amer 54 mL/min >60 [facility] Comment on above: Non- GFR Calc Vitamin D 25-Hydroxy 58.4 ng/mL [facility] Comment on above: Vitamin D 25(OH) Sta tus Range Deficiency <20 ng/mL (50nmol/L) Insufficiency 20 - 30 ng/mL (50 - 75 nmol/L) Sufficiency 30 - 100 ng/mL (75 - 250 nmol/L) Toxicity >100 ng/mL (>250 nmol/L) VLDL Cholesterol 33 mg/dL 5-40 [facility] RBC Auto (Bld) [#/Vol]Ordere d By: Steve Alexandre on 11-22-2023 RBC (Bld) [#/Vol] 5.10 10*6/uL 4.2-5.4 [facility] Serum or plasma calcium nereida urement (mass/volume)Ordered By: Steve Alexandre on 11-22-2023 Calcium [Mass/Vol] 8.9 mg/dL 8.5-10.1 [facility] Serum or plasma creatinine m easurement (mass/volume)Ordered By: Steve Alexandre on 11-22-2023 Creatinine [Mass/Vol] 1.07 mg/dL 0.55-1.02 [facility] Comment on above: The validity of the calculated GFR & GFRAA in patients over 70 years has not been determined. Clinical correlation is essential. Serum or plasma thyroid stim ulating hormone (TSH) measurement (units/volume)Ordered By: Steve Alexandre on 11-22-2023 TSH Qn 7.78 uIU/mL 0.358-3.74 [facility] Serum or plasma urea nitroge n measurement (mass/volume)Ordered By: Steve Alexandre on 11-22-2023 Urea nitrogen [Mass/Vol] 19 mg/dL 7-18 [facility] Thin prep Papanicolaou smear with manual screeningOrdered By: Steve Alexandre on 11-22-2023 Thin prep Papanicolaou smear with manual screening 3.7 g/dL 3.2-5.0 [facility] Thin prep Papanicolaou smear with manual screening 20 U/L 15-37 [facility] Thin prep Papanicolaou smear with manual screening 4 5-15 [facility] PT Initial Evaluationon 04-03 PT Initial Evaluation No report was sent Normal [employer] Therapy Communicationon 04-03 Therapy Communication Message [facility] canceled today 04/26/23. Pt cancel d/t illness. Signatures Electronically signed by : Chelsey Velasquez, PT; Apr 26 2023 1:20PM EST (Author) Normal [employer] Basophil percentageOrdered B y: Steve Alexandre on 03-12-2023 Chloride [Moles/Vol] 105 mmol/L 98-107 [facility] Glucose [Mass/Vol] 132 mg/dL 74-106 [facility] Comment on above: Fasting Glucose resu lt greater than or equal to 126 mg/dL suggests DIABETES MELLITUS per A.D.A. criteria. Potassium [Moles/Vol] 3.9 mmol/L 3.5-5.1 [facility] Sodium [Moles/Vol] 140 mmol/L 136-145 [facility] Laboratory - Chemistry and C hemistry - challengeOrdered By: Steve Alexandre on 03-12-2023 CO2 [Moles/Vol] 30.0 mmol/L 21.0-32.0 [facility] Urea nitrogen/Creatinine [Mass ratio] 16.0 mg/mg 10-20 [facility] No Panel InformationOrdered By: Steve Alexandre on 03-12-2023 Estimated GFR (MDRD) Amer 66 mL/min >60 [facility] Comment on above: GFR Calc Estimated GFR (MDRD) Non-Af Amer 54 mL/min >60 [facility] Comment on above: Non- GFR Calc Serum or plasma calcium nereida urement (mass/volume)Ordered By: Steve Alexandre on 03-12-2023 Calcium [Mass/Vol] 9.3 mg/dL 8.5-10.1 [facility] Serum or plasma creatinine m easurement (mass/volume)Ordered By: Steve Alexandre on 03-12-2023 Creatinine [Mass/Vol] 1.06 mg/dL 0.55-1.02 [facility] Comment on above: The validity of the calculated GFR & GFRAA in patients over 70 years has not been determined. Clinical correlation is essential. Serum or plasma urea nitroge n measurement (mass/volume)Ordered By: Steve Alexandre on 03-12-2023 Urea nitrogen [Mass/Vol] 17 mg/dL 7-18 [facility] Thin prep Papanicolaou smear with manual screeningOrdered By: michael Alexandre on 03-12-2023 Thin prep Papanicolaou smear with manual screening 5 5-15 [facility] Absolute lymphocyte countOrd ered By: Dr. Yepez on 09-15-2022 Lymphocytes Auto (Unsp spec) [#/Vol] 1.70 10*3/uL 0.83-4.51 [facility] Basophil percentageOrdered B y: Dr. Yepez on 09-15-2022 Basophils/100 WBC (Bld) 0.4 % 0-1 [facility] Chloride [Moles/Vol] 105 mmol/L 98-107 [facility] Cholesterol [Mass/Vol] 148 mg/dL <200 [facility] Comment on above: <200 mg/dL Desirable 200-240 mg/dL Borderline >240 mg/dL High Risk Eosinophils/100 WBC (Bld) 3.8 % 0-5 [facility] Glucose [Mass/Vol] 114 mg/dL 74-106 [facility] Comment on above: Fasting Glucose resu lt from 100 to 125 mg/dL suggests IMPAIRED HOMEOSTASIS per A.D.A. criteria. Neutrophils (Bld) [#/Vol] 2.9 10*3/uL 2.0-7.7 [facility] Neutrophils/100 WBC (Bld) 55.0 % 47-70 [facility] Potassium [Moles/Vol] 3.4 mmol/L 3.5-5.1 [facility] Sodium [Moles/Vol] 140 mmol/L 136-145 [facility] Triglyceride [Mass/Vol] 134 mg/dL <199 [facility] Comment on above: The drugs N-Acetylcy steine and Metamizole may falsely depress this assay.Serum Triglycerides Reference Interval Normal <150 mg/dL Borderline high 150 - 199 mg/dL High 200 - 499 mg/dL Very High > or = 500 mg/dL WBC (Bld) [#/Vol] 5.3 10*3/uL 4.4-11.0 [facility] Blood erythrocytes count (nu mber/volume)Ordered By: Dr. Yepez on 09-15-2022 RBC (Bld) [#/Vol] 4.79 10*6/uL 4.2-5.4 [facility] Blood hemoglobin measurement (mass/volume)Ordered By: Dr. Yepez on 09-15-2022 Hemoglobin (Bld) [Mass/Vol] 12.8 g/dL 12.0-15.0 [facility] Blood lymphocytes/100 leukoc ytesOrdered By: Dr. Yepez on 09-15-2022 Lymphocytes/100 WBC (Bld) 32.1 % 19-41 [facility] Blood monocytes/100 leukocyt esOrdered By: Dr. Yepez on 09-15-2022 Monocytes/100 WBC (Bld) 8.3 % 0-10 [facility] Blood platelet mean volumeOr dered By: Dr. Yepez on 09-15-2022 Platelet mean volume (Bld) [Entitic vol] 11.0 fL 6.2-12.0 [facility] Determination of erythrocyte mean corpuscular volume (MCV)Ordered By: Dr. Yepez on 09-15-2022 MCV (RBC) [Entitic vol] 82.9 fL 81-99 [facility] Hematocrit Auto (Bld) [Volum e fraction]Ordered By: Dr. Yepez on 09-15-2022 Hematocrit (Bld) [Volume fraction] 39.7 % 37-47 [facility] Laboratory - Chemistry and C hemistry - challengeOrdered By: Dr. Yepez on 09-15-2022 CO2 [Moles/Vol] 28.0 mmol/L 21.0-32.0 [facility] Urea nitrogen/Creatinine [Mass ratio] 15.0 mg/mg 10-20 [facility] Laboratory - Hematology and Cell countsOrdered By: Dr. Yepez on 09-15-2022 Erythrocyte distribution width (RBC) [Entitic vol] 44.2 fL 35.1-43.9 [facility] Erythrocyte distribution width (RBC) [Ratio] 14.6 % 11.6-14.6 [facility] Immature granulocytes/100 WBC (Bld) 0.400 % 0.0-0.9 [facility] Comment on above: IG% - Immature Granu locytes (promyelocytes, myelocytes and metamyelocytes) > 1% indicates that a LEFT SHIFT is Present. MCH (RBC) [Entitic mass] 26.7 pg 27.0-32.0 [facility] Nucleated RBC/100 WBC (Bld) [Ratio] 0 % 0-5 [facility] MCHC Auto (RBC) [Mass/Vol]Or dered By: Dr. Yepez on 09-15-2022 MCHC (RBC) [Mass/Vol] 32.2 g/dL 32-36 [facility] No Panel InformationOrdered By: Dr. Yepez on 09-15-2022 Estimated Creatinine Clearance Calc 46.56 ml/min [facility] Estimated GFR (MDRD) Amer 77 mL/min >60 [facility] Comment on above: GFR Calc Estimated GFR (MDRD) Non-Af Amer 63 mL/min >60 [facility] Comment on above: Non- GFR Calc Thyroid Stimulating Hormone (TSH) 1.52 uIU/mL 0.358-3.74 [facility] Platelets bldOrdered By: Dr. Yepez on 09-15-2022 Platelets (Bld) [#/Vol] 231 10*3/uL 150-450 [facility] Serum or plasma calcium nereida urement (mass/volume)Ordered By: Dr. Yepez on 09-15-2022 Calcium [Mass/Vol] 8.9 mg/dL 8.5-10.1 [facility] Serum or plasma cholesterol in HDL measurement (mass/volume)Ordered By: Dr. Yepez on 09-15-2022 Cholesterol in HDL [Mass/Vol] 36 mg/dL >40 [facility] Comment on above: The drugs N-Acetylcy steine and Metamizole may falsely depress this assay. Reference Range HDL <40 mg/dL Low HDL Cholesterol HDL >or= 60 mg/dL High HDL Cholesterol Serum or plasma cholesterol in VLDL measurement (mass/volume)Ordered By: Dr. Yepez on 09-15-2022 Cholesterol in VLDL [Mass/Vol] 27 mg/dL 5-40 [facility] Serum or plasma creatinine m easurement (mass/volume)Ordered By: Dr. Yepez on 09-15-2022 Creatinine [Mass/Vol] 0.93 mg/dL 0.55-1.02 [facility] Comment on above: The validity of the calculated GFR & GFRAA in patients over 70 years has not been determined. Clinical correlation is essential. Serum or plasma low density lipoprotein (LDL) cholesterol measurement (mass/volume)Ordered By: Dr. Yepez on 09-15-2022 Cholesterol in LDL [Mass/Vol] 85 mg/dL 0-130 [facility] Serum or plasma urea nitroge n measurement (mass/volume)Ordered By: Dr. Yepez on 09-15-2022 Urea nitrogen [Mass/Vol] 14 mg/dL 7-18 [facility] Thin prep Papanicolaou smear with manual screeningOrdered By: Dr. Yepez on 09-15-2022 Thin prep Papanicolaou smear with manual screening 7 5-15 [facility] Absolute lymphocyte countOrd ered By: Dr. Alberts on 09-14-2022 Lymphocytes Auto (Unsp spec) [#/Vol] 1.55 10*3/uL 0.83-4.51 [facility] Basophil percentageOrdered B y: Dr. Alberts on 09-14-2022 Basophils/100 WBC (Bld) 0.4 % 0-1 [facility] Chloride [Moles/Vol] 105 mmol/L 98-107 [facility] Eosinophils/100 WBC (Bld) 5.8 % 0-5 [facility] Glucose [Mass/Vol] 115 mg/dL 74-106 [facility] Comment on above: Fasting Glucose resu lt from 100 to 125 mg/dL suggests IMPAIRED HOMEOSTASIS per A.D.A. criteria. Neutrophils (Bld) [#/Vol] 2.5 10*3/uL 2.0-7.7 [facility] Neutrophils/100 WBC (Bld) 53.3 % 47-70 [facility] Potassium [Moles/Vol] 3.7 mmol/L 3.5-5.1 [facility] Comment on above: Slight Hemolysis, Re sult may be falsely increased. Sodium [Moles/Vol] 140 mmol/L 136-145 [facility] WBC (Bld) [#/Vol] 4.7 10*3/uL 4.4-11.0 [facility] Blood erythrocytes count (nu mber/volume)Ordered By: Dr. Alberts on 09-14-2022 RBC (Bld) [#/Vol] 5.04 10*6/uL 4.2-5.4 [facility] Blood hemoglobin measurement (mass/volume)Ordered By: Dr. Alberts on 09-14-2022 Hemoglobin (Bld) [Mass/Vol] 14.0 g/dL 12.0-15.0 [facility] Blood lymphocytes/100 leukoc ytesOrdered By: Dr. Alberts on 09-14-2022 Lymphocytes/100 WBC (Bld) 33.1 % 19-41 [facility] Blood monocytes/100 leukocyt esOrdered By: Dr. Alberts on 09-14-2022 Monocytes/100 WBC (Bld) 6.8 % 0-10 [facility] Blood platelet mean volumeOr dered By: Dr. Alberts on 09-14-2022 Platelet mean volume (Bld) [Entitic vol] 10.7 fL 6.2-12.0 [facility] Determination of erythrocyte mean corpuscular volume (MCV)Ordered By: Dr. Alberts on 09-14-2022 MCV (RBC) [Entitic vol] 82.5 fL 81-99 [facility] Hematocrit Auto (Bld) [Volum e fraction]Ordered By: Dr. Alberts on 09-14-2022 Hematocrit (Bld) [Volume fraction] 41.6 % 37-47 [facility] INR in Blood by Coagulation assayOrdered By: Dr. Alberts on 09-14-2022 INR Coag (Bld) [Relative time] 1.3 {INR} [facility] Laboratory - Chemistry and C hemistry - challengeOrdered By: Dr. Alberts on 09-14-2022 CO2 [Moles/Vol] 30.0 mmol/L 21.0-32.0 [facility] Urea nitrogen/Creatinine [Mass ratio] 16.5 mg/mg 10-20 [facility] Laboratory - Chemistry and C hemistry - challengeOrdered By: Dr. Yepez on 09-14-2022 Magnesium [Mass/Vol] 2.4 mg/dL 1.6-2.6 [facility] Comment on above: Slight Hemolysis, Re sult may be falsely increased. Laboratory - CoagulationOrde red By: Dr. Alberts on 09-14-2022 aPTT Coag (Bld) [Time] 27.8 s 24.1-36.2 [facility] PT Coag (PPP) [Time] 15.4 s 11.7-14.9 [facility] Laboratory - Hematology and Cell countsOrdered By: Dr. Alberts on 09-14-2022 Erythrocyte distribution width (RBC) [Entitic vol] 42.7 fL 35.1-43.9 [facility] Erythrocyte distribution width (RBC) [Ratio] 14.4 % 11.6-14.6 [facility] Immature granulocytes/100 WBC (Bld) 0.600 % 0.0-0.9 [facility] Comment on above: IG% - Immature Granu locytes (promyelocytes, myelocytes and metamyelocytes) > 1% indicates that a LEFT SHIFT is Present. MCH (RBC) [Entitic mass] 27.8 pg 27.0-32.0 [facility] Nucleated RBC/100 WBC (Bld) [Ratio] 0 % 0-5 [facility] MCHC Auto (RBC) [Mass/Vol]Or dered By: Dr. Alberts on 09-14-2022 MCHC (RBC) [Mass/Vol] 33.7 g/dL 32-36 [facility] No Panel InformationOrdered By: Dr. Alberts on 09-14-2022 Estimated Creatinine Clearance Calc 50.52 ml/min [facility] Estimated GFR (MDRD) Amer 73 mL/min >60 [facility] Comment on above: GFR Calc Estimated GFR (MDRD) Non-Af Amer 60 mL/min >60 [facility] Comment on above: Non- GFR Calc Troponin I High Sensitivity 4 pg/mL 3.0-54.0 [facility] Comment on above: Please Note: New Gloria t Units and Gender Specific Reference Ranges. For more information see Policy Stat Procedure [place] High Sensitivity Troponin (TNIH) and attachments. Platelets bldOrdered By: Dr. Alberts on 09-14-2022 Platelets (Bld) [#/Vol] 214 10*3/uL 150-450 [facility] Serum or plasma calcium nereida urement (mass/volume)Ordered By: Dr. Alberts on 09-14-2022 Calcium [Mass/Vol] 9.1 mg/dL 8.5-10.1 [facility] Serum or plasma creatinine m easurement (mass/volume)Ordered By: Dr. Alberts on 09-14-2022 Creatinine [Mass/Vol] 0.97 mg/dL 0.55-1.02 [facility] Comment on above: The validity of the calculated GFR & GFRAA in patients over 70 years has not been determined. Clinical correlation is essential. Serum or plasma urea nitroge n measurement (mass/volume)Ordered By: Dr. Alberts on 09-14-2022 Urea nitrogen [Mass/Vol] 16 mg/dL 7-18 [facility] Thin prep Papanicolaou smear with manual screeningOrdered By: Dr. Alberts on 09-14-2022 Thin prep Papanicolaou smear with manual screening 5 5-15 [facility] Absolute lymphocyte countOrd ered By: Dr. Alexandre on 07-17-2022 Lymphocytes Auto (Unsp spec) [#/Vol] 1.41 10*3/uL 0.83-4.51 [facility] Basophil percentageOrdered B y: Dr. Alexandre on 07-17-2022 Basophils/100 WBC (Bld) 0.3 % 0-1 [facility] Bilirubin [Mass/Vol] 0.60 mg/dL 0.20-1.00 [facility] Comment on above: For patients on eltr ombopag therapy, use of Dimension [place] TBIL is not recommended. Chloride [Moles/Vol] 104 mmol/L 98-107 [facility] Cholesterol [Mass/Vol] 200 mg/dL <200 [facility] Comment on above: <200 mg/dL Desirable 200-240 mg/dL Borderline >240 mg/dL High Risk Eosinophils/100 WBC (Bld) 7.0 % 0-5 [facility] Glucose [Mass/Vol] 94 mg/dL 74-106 [facility] Neutrophils (Bld) [#/Vol] 3.7 10*3/uL 2.0-7.7 [facility] Neutrophils/100 WBC (Bld) 61.7 % 47-70 [facility] Potassium [Moles/Vol] 3.7 mmol/L 3.5-5.1 [facility] Protein [Mass/Vol] 7.4 g/dL 6.4-8.2 [facility] Sodium [Moles/Vol] 139 mmol/L 136-145 [facility] Triglyceride [Mass/Vol] 196 mg/dL <199 [facility] Comment on above: The drugs N-Acetylcy steine and Metamizole may falsely depress this assay.Serum Triglycerides Reference Interval Normal <150 mg/dL Borderline high 150 - 199 mg/dL High 200 - 499 mg/dL Very High > or = 500 mg/dL WBC (Bld) [#/Vol] 6.0 10*3/uL 4.4-11.0 [facility] Blood erythrocytes count (nu mber/volume)Ordered By: Dr. Alexandre on 07-17-2022 RBC (Bld) [#/Vol] 5.38 10*6/uL 4.2-5.4 [facility] Blood hemoglobin measurement (mass/volume)Ordered By: Dr. Alexandre on 07-17-2022 Hemoglobin (Bld) [Mass/Vol] 14.5 g/dL 12.0-15.0 [facility] Blood lymphocytes/100 leukoc ytesOrdered By: Dr. Alexandre on 07-17-2022 Lymphocytes/100 WBC (Bld) 23.7 % 19-41 [facility] Blood monocytes/100 leukocyt esOrdered By: Dr. Alexandre on 07-17-2022 Monocytes/100 WBC (Bld) 7.0 % 0-10 [facility] Blood platelet mean volumeOr dered By: Dr. Alexandre on 07-17-2022 Platelet mean volume (Bld) [Entitic vol] 11.8 fL 6.2-12.0 [facility] Determination of erythrocyte mean corpuscular volume (MCV)Ordered By: Dr. Alexandre on 07-17-2022 MCV (RBC) [Entitic vol] 83.8 fL 81-99 [facility] Hematocrit Auto (Bld) [Volum e fraction]Ordered By: Dr. Alexandre on 07-17-2022 Hematocrit (Bld) [Volume fraction] 45.1 % 37-47 [facility] Laboratory - Chemistry and C hemistry - challengeOrdered By: Dr. Alexandre on 07-17-2022 ALP [Catalytic activity/Vol] 52 U/L 45-117 [facility] ALT [Catalytic activity/Vol] 26 U/L 13-56 [facility] CO2 [Moles/Vol] 27.0 mmol/L 21.0-32.0 [facility] Globulin (S) [Mass/Vol] 3.5 g/dL 2.2-4.2 [facility] Urea nitrogen/Creatinine [Mass ratio] 17.6 mg/mg 10-20 [facility] Laboratory - Hematology and Cell countsOrdered By: Dr. Alexandre on 07-17-2022 Erythrocyte distribution width (RBC) [Entitic vol] 42.7 fL 35.1-43.9 [facility] Erythrocyte distribution width (RBC) [Ratio] 14.1 % 11.6-14.6 [facility] Immature granulocytes/100 WBC (Bld) 0.300 % 0.0-0.9 [facility] Comment on above: IG% - Immature Granu locytes (promyelocytes, myelocytes and metamyelocytes) > 1% indicates that a LEFT SHIFT is Present. MCH (RBC) [Entitic mass] 27.0 pg 27.0-32.0 [facility] Nucleated RBC/100 WBC (Bld) [Ratio] 0 % 0-5 [facility] MCHC Auto (RBC) [Mass/Vol]Or dered By: Dr. Alexandre on 12-16-2022 MCHC (RBC) [Mass/Vol] 32.2 g/dL 32-36 [facility] No Panel InformationOrdered By: Dr. Alexandre on 07-17-2022 Estimated GFR (MDRD) Amer 64 mL/min >60 [facility] Comment on above: GFR Calc Estimated GFR (MDRD) Non-Af Amer 53 mL/min >60 [facility] Comment on above: Non- GFR Calc Thyroid Stimulating Hormone (TSH) 1.81 uIU/mL 0.358-3.74 [facility] Platelets bldOrdered By: Dr. Alexandre on 07-17-2022 Platelets (Bld) [#/Vol] 268 10*3/uL 150-450 [facility] Serum or plasma albumin nereida urement (mass/volume)Ordered By: Dr. Alexandre on 07-17-2022 Albumin [Mass/Vol] 3.9 g/dL 3.2-5.0 [facility] Serum or plasma albumin/glob ulin mass ratioOrdered By: Dr. Alexandre on 07-17-2022 Albumin/Globulin [Mass ratio] 1.1 {ratio} 0.9-2.4 [facility] Serum or plasma calcium nereida urement (mass/volume)Ordered By: Dr. Alexandre on 07-17-2022 Calcium [Mass/Vol] 9.4 mg/dL 8.5-10.1 [facility] Serum or plasma cholesterol in HDL measurement (mass/volume)Ordered By: Dr. Alexandre on 07-17-2022 Cholesterol in HDL [Mass/Vol] 40 mg/dL >40 [facility] Comment on above: The drugs N-Acetylcy steine and Metamizole may falsely depress this assay. Reference Range HDL <40 mg/dL Low HDL Cholesterol HDL >or= 60 mg/dL High HDL Cholesterol Serum or plasma cholesterol in VLDL measurement (mass/volume)Ordered By: Dr. Alexandre on 07-17-2022 Cholesterol in VLDL [Mass/Vol] 39 mg/dL 5-40 [facility] Serum or plasma creatinine m easurement (mass/volume)Ordered By: Dr. Alexandre on 07-17-2022 Creatinine [Mass/Vol] 1.08 mg/dL 0.55-1.02 [facility] Comment on above: The validity of the calculated GFR & GFRAA in patients over 70 years has not been determined. Clinical correlation is essential. Serum or plasma low density lipoprotein (LDL) cholesterol measurement (mass/volume)Ordered By: Dr. Alexandre on 07-17-2022 Cholesterol in LDL [Mass/Vol] 121 mg/dL 0-130 [facility] Serum or plasma urea nitroge n measurement (mass/volume)Ordered By: Dr. Alexandre on 07-17-2022 Urea nitrogen [Mass/Vol] 19 mg/dL 7-18 [facility] Thin prep Papanicolaou smear with manual screeningOrdered By: Dr. Alexandre on 07-17-2022 Thin prep Papanicolaou smear with manual screening 15 U/L 15-37 [facility] Thin prep Papanicolaou smear with manual screening 8 5-15 [facility] Basophil percentageon 2021 Basophil percentage >100 SEEN /hpf 0-5 [facility] Work Phone: Bilirubin Test strip Ql (U)o n 04-20-2022 Bilirubin Ql (U) 6 mg/dL Negative [facility] Work Phone: Comment on above: COLOR OF URINE MAY A FFECT DIPSTICK RESULTS. Ketones Test strip Ql (U)on 04-20-2022 Ketones Ql (U) 5 mg/dl Negative [facility] Work Phone: Mucus LM Ql (Urine sed)on Mucus Ql (Urine sed) 0 SEEN /hpf [facility] Work Phone: Nitrite Test strip Ql (U)on 04-20-2022 Nitrite Ql (U) Positive Negative [facility] Work Phone: Protein Test strip Ql (U)on 04-20-2022 Protein Ql (U) 100 mg/dl Negative [facility] Work Phone: Squamous epithelial cells de tection in urine sediment by light microscopyon 04-20-2022 Epithelial cells.squamous LM Ql (Urine sed) 0-5 SEEN /hpf 5-10 [facility] Work Phone: Urine blood detectionon 04-02 RBC Ql (U) 50 /ul Negative [facility] Work Phone: RBC Ql (U) 0 SEEN /hpf 0-5 [facility] Work Phone: Urine clarityon 04-20-2022 Clarity (U) Cloudy Clear [facility] Work Phone: Urine color determinationon 04-20-2022 Color (U) SEE COMMENT BELOW Yellow [facility] Work Phone: Comment on above: Visual Urine Color: ORANGE Urine glucose detectionon Glucose Ql (U) Normal mg/dl Normal [facility] Work Phone: Urine leukocyte esterase det ection by dipstickon 04-20-2022 Leukocyte esterase Test strip Ql (U) 500 /ul Negative [facility] Work Phone: Urine pHon 04-20-2022 pH (U) 6.0 [pH] 5.0 - 8.0 [facility] Work Phone: Urine sediment bacteria coun t by microscopy (number/high power field)on 04-20-2022 Bacteria LM.HPF (Urine sed) [#/Area] 2 /[HPF] None Seen [facility] Work Phone: Urine specific gravity measu rementon 04-20-2022 Specific gravity (U) [Rel density] 1.020 1.002-1.03 0 [facility] Work Phone: Urobilinogen Auto test strip Ql (U)on 04-20-2022 Urobilinogen Ql (U) 12 mg/dl Normal [place] [facility] Work Phone: Basophil percentageon 2021 Chloride [Moles/Vol] 104 mmol/L 98-[address] [facility] Work Phone: Glucose [Mass/Vol] 98 mg/dL 74-106 [place] [facility] Work Phone: Potassium [Moles/Vol] 4.1 mmol/L 3.5-5.[address] [place] [facility] Work Phone: Comment on above: Slight Hemolysis, Re sult may be falsely increased. Sodium [Moles/Vol] 139 mmol/L 136-145 [facility] Work Phone: Laboratory - Chemistry and C hemistry - challengeon 04-08-2022 CO2 [Moles/Vol] 28.0 mmol/L 21.0-32.0 [facility] Work Phone: Urea nitrogen/Creatinine [Mass ratio] 18.8 mg/mg 10-20 [facility] Work Phone: No Panel Informationon 04-08 Estimated GFR (MDRD) Amer 74 mL/min >60 [facility] Work Phone: Comment on above: GFR Calc Estimated GFR (MDRD) Non-Af Amer 61 mL/min >60 [facility] Work Phone: Comment on above: Non- GFR Calc Serum or plasma calcium nereida urement (mass/volume)on 04-08-2022 Calcium [Mass/Vol] 9.3 mg/dL 8.5-10.1 [facility] Work Phone: Serum or plasma creatinine m easurement (mass/volume)on 04-08-2022 Creatinine [Mass/Vol] 0.96 mg/dL 0.55-1.02 [facility] Work Phone: Comment on above: The validity of the calculated GFR & GFRAA in patients over 70 years has not been determined. Clinical correlation is essential. Serum or plasma urea nitroge n measurement (mass/volume)on 04-08-2022 Urea nitrogen [Mass/Vol] 18 mg/dL 7-18 [facility] Work Phone: Thin prep Papanicolaou smear with manual screeningon 04-08-2022 Thin prep Papanicolaou smear with manual screening 7 5-15 [facility] Work Phone: XR Chest 2 Viewson 8 XR Chest 2 Views Exam Date/Time:06/17 15:20 ESTReason for Exam:chronic coughReportSTUDY:XR Chest 2 Views; 06/17/2018 3:20 pmINDICATION:chronic cough.COMPARISON:None.ACCESS ION NUMBER(S):[id number] KAYA CLINICIAN:Dave Rico:PA and lateral views of the chest were obtained. No focal infiltrate, pleural effusion or pneumothorax is identified. The cardiac silhouette is within normal limits for size. Mild discogenic degenerative changes are seen throughout the thoracic spine.IMPRESSION:No focal infiltrate or pneumothorax. FINAL REPORT Dictated: 06/17/2018 3:23 pm Dannie Caballero MD CSigned (Electronic Signature): 06/17/2018 3:23 pmSigned by: Dannie Caballero MD Technologist: [facility] C REACTIVE PROTEINon 018 C reactive protein (CRP) 7.2 mg/L Normal 0-10 [facility] Comment on above: Result Comment: Test ing performed at [place] [address] Performed By: #### E SR, CREACT ####[place] [address] ESRon 02-23-2018 Erythrocyte sedimentation rate 2 mm/h Normal [facility] Comment on above: Result Comment: Test ing performed at [place] [address] Performed By: #### E SR, CREACT ####[place] [address] PROGRESSon 02-23-2018 [facility] NOTES Normal [facility] Culture, urine Bacteria identified Cx Nom (U) Presumptive E. coli [facility] Work Phone: Vital Signs Date Time Vital Sign Value Performing Clinician Rony goode 01-31-2025 11:26-0400 Body temperature 97.8 [degF] Dr. Steve Alexandre MD Work Phone: [facility] 01-31-2025 11:26-0400 Diastolic blood pressure 50 mm[Hg] Dr. Steve Alexandre MD Work Phone: [facility] 01-31-2025 11:26-0400 Heart rate 63 /min Dr. Steve Alexandre MD Work Phone: [facility] 01-31-2025 11:26-0400 Respiratory rate 18 /min Dr. Steve Alexandre MD Work Phone: [facility] 01-31-2025 11:26-0400 SaO2% (BldA) [Mass fraction] 97 % Dr. Steve Alexandre MD Work Phone: [facility] 01-31-2025 11:26-0400 Systolic blood pressure 123 mm[Hg] Dr. Steve Alexandre MD Work Phone: [facility] 01-31-2025 00:56-0400 Inhaled oxygen flow rate 2 L/min Dr. Steve Alexandre MD Work Phone: [facility] 01-30-2025 17:49-0400 Body height 162.[address] Steve Alexandre MD Work Phone: [facility] 01-30-2025 17:49-0400 Body mass index (BMI) [Ratio] 33.1 kg/m2 Dr. Steve Alexandre MD Work Phone: [facility] 01-30-2025 17:49-0400 Body weight [address] Steve Alexandre MD Work Phone: [facility] 01-17-2025 07:24-0400 Body mass index (BMI) [Ratio] 33.1 kg/m2 Dr. Steve Alexandre MD Work Phone: [facility] 01-17-2025 07:24-0400 Body temperature 97.3 [degF] Dr. Steve Alexandre MD Work Phone: [facility] 01-17-2025 07:24-0400 Body weight 87.[address] Steve Alexandre MD Work Phone: [facility] 01-17-2025 07:24-0400 Diastolic blood pressure 60 mm[Hg] Dr. Steve Alexandre MD Work Phone: [facility] 01-17-2025 07:24-0400 Heart rate 74 /min Dr. Steve Alexandre MD Work Phone: [facility] 01-17-2025 07:24-0400 Respiratory rate 18 /min Dr. Steve Alexandre MD Work Phone: [facility] 01-17-2025 07:24-0400 SaO2% (BldA) [Mass fraction] 99 % Dr. Steve Alexandre MD Work Phone: [facility] 01-17-2025 07:24-0400 Systolic blood pressure 119 mm[Hg] Dr. Steve Alexandre MD Work Phone: [facility] 01-10-2025 12:51-0400 Body height 162.[address] Steve Alexandre MD Work Phone: [facility] 01-10-2025 12:51-0400 Body mass index (BMI) [Ratio] 33.6 kg/m2 Dr. Steve Alexandre MD Work Phone: [facility] 01-10-2025 12:51-0400 Body temperature 97.6 [degF] Dr. Steve Alexandre MD Work Phone: [facility] 01-10-2025 12:51-0400 Body weight 88.[address] Steve Alexandre MD Work Phone: [facility] 01-10-2025 12:51-0400 Diastolic blood pressure 80 mm[Hg] Dr. Steve Alexandre MD Work Phone: [facility] 01-10-2025 12:51-0400 Heart rate 91 /min Dr. Steve Alexandre MD Work Phone: [facility] 01-10-2025 12:51-0400 Respiratory rate 16 /min Dr. Steve Alexandre MD Work Phone: [facility] 01-10-2025 12:51-0400 SaO2% (BldA) [Mass fraction] 89 % Dr. Steve Alexandre MD Work Phone: [facility] 01-10-2025 12:51-0400 Systolic blood pressure 128 mm[Hg] Dr. Steve Alexandre MD Work Phone: [facility] 12-15-2024 10:29-0400 Body height 162.[address] Steve Alexandre MD Work Phone: [facility] 12-15-2024 10:29-0400 Body mass index (BMI) [Ratio] 32.5 kg/m2 Dr. Steve Alexandre MD Work Phone: [facility] 12-15-2024 10:29-0400 Body weight 86.[address] Steve Alexandre MD Work Phone: [facility] 11-15-2024 12:46-0400 Body mass index (BMI) [Ratio] 32.9 kg/m2 Dr. Steve Alexandre MD Work Phone: [facility] 11-15-2024 12:46-0400 Body temperature 97.3 [degF] Dr. Steve Alexandre MD Work Phone: [facility] 11-15-2024 12:46-0400 Body weight 87.[address] Steve Alexandre MD Work Phone: [facility] 11-15-2024 12:46-0400 Diastolic blood pressure 78 mm[Hg] Dr. Steve Alexandre MD Work Phone: [facility] 11-15-2024 12:46-0400 Heart rate 77 /min Dr. Steve Alexandre MD Work Phone: [facility] 11-15-2024 12:46-0400 Respiratory rate 20 /min Dr. Steve Alexandre MD Work Phone: [facility] 11-15-2024 12:46-0400 SaO2% (BldA) [Mass fraction] 98 % Dr. Steve Alexandre MD Work Phone: [facility] 11-15-2024 12:46-0400 Systolic blood pressure 128 mm[Hg] Dr. Steve Alexandre MD Work Phone: [facility] 11-03-2024 13:13-0400 Body height 162.[address] Steve Alexandre MD Work Phone: [facility] 11-03-2024 13:13-0400 Body mass index (BMI) [Ratio] 33.5 kg/m2 Dr. Steve Alexandre MD Work Phone: [facility] 11-03-2024 13:13-0400 Body temperature 97.2 [degF] Dr. Steve Alexandre MD Work Phone: [facility] 11-03-2024 13:13-0400 Body weight 88.[address] Steve Alexandre MD Work Phone: [facility] 11-03-2024 13:13-0400 Diastolic blood pressure 74 mm[Hg] Dr. Steve Alexandre MD Work Phone: [facility] 11-03-2024 13:13-0400 Heart rate 90 /min Dr. Steve Alexandre MD Work Phone: [facility] 11-03-2024 13:13-0400 Respiratory rate 16 /min Dr. Steve Alexandre MD Work Phone: [facility] 11-03-2024 13:13-0400 SaO2% (BldA) [Mass fraction] 94 % Dr. Steve Alexandre MD Work Phone: [facility] 11-03-2024 13:13-0400 Systolic blood pressure 118 mm[Hg] Dr. Steve Alexandre MD Work Phone: [facility] 09-22-2024 14:04-0500 Body mass index (BMI) [Ratio] 34.3 kg/m2 Dr. Steve Alexandre MD Work Phone: [facility] 09-22-2024 14:04-0500 Body weight 90.[address] Steve Alexandre MD Work Phone: [facility] 09-19-2024 09:17-0500 Body weight 86.[address] Steve Alexandre MD Work Phone: [facility] 09-19-2024 09:17-0500 Heart rate 89 /min Dr. Steve Alexandre MD Work Phone: [facility] 09-19-2024 09:17-0500 SaO2% (BldA) [Mass fraction] 97 % Dr. Steve Alexandre MD Work Phone: [facility] 08-23-2024 08:08-0500 Body mass index (BMI) [Ratio] 34 kg/m2 Dr. Steve Alexandre MD Work Phone: [facility] 08-23-2024 08:08-0500 Body temperature 97.4 [degF] Dr. Steve Alexandre MD Work Phone: [facility] 08-23-2024 08:08-0500 Body weight 89.[address] Steve Alexandre MD Work Phone: [facility] 08-23-2024 08:08-0500 Diastolic blood pressure 69 mm[Hg] Dr. Steve Alexandre MD Work Phone: [facility] 08-23-2024 08:08-0500 Heart rate 89 /min Dr. Steve Alexandre MD Work Phone: [facility] 08-23-2024 08:08-0500 Respiratory rate 18 /min Dr. Steve Alexandre MD Work Phone: [facility] 08-23-2024 08:08-0500 SaO2% (BldA) [Mass fraction] 95 % Dr. Steve Alexandre MD Work Phone: [facility] 08-23-2024 08:08-0500 Systolic blood pressure 140 mm[Hg] Dr. Steve Alexandre MD Work Phone: [facility] 08-07-2024 12:22-0500 Body temperature 98.1 [degF] Dr. Steve Alexandre MD Work Phone: [facility] 08-07-2024 12:22-0500 Diastolic blood pressure 68 mm[Hg] Dr. Steve Alexandre MD Work Phone: [facility] 08-07-2024 12:22-0500 Heart rate 67 /min Dr. Steve Alexandre MD Work Phone: [facility] 08-07-2024 12:22-0500 Respiratory rate 18 /min Dr. Steve Alexandre MD Work Phone: [facility] 08-07-2024 12:22-0500 SaO2% (BldA) [Mass fraction] 95 % Dr. Steve Alexandre MD Work Phone: [facility] 08-07-2024 12:22-0500 Systolic blood pressure 115 mm[Hg] Dr. Steve Alexandre MD Work Phone: [facility] 08-07-2024 09:05-0500 Body mass index (BMI) [Ratio] 34 kg/m2 Dr. Steve Alexandre MD Work Phone: [facility] 08-07-2024 09:05-0500 Body weight [address] Steve Alexandre MD Work Phone: [facility] 11-22-2023 10:17-0400 Body height 160.[address] Steve Alexandre Work Phone: [facility] 11-22-2023 10:17-0400 Body mass index (BMI) [Ratio] 34 kg/m2 Dr. Steve Alexandre Work Phone: [facility] 11-22-2023 10:17-0400 Body temperature 98.5 [degF] Dr. Steve Alexandre Work Phone: [facility] 11-22-2023 10:17-0400 Body weight 87.[address] Steve Alexandre Work Phone: [facility] 11-22-2023 10:17-0400 Diastolic blood pressure 80 mm[Hg] Dr. Steve Alexandre Work Phone: [facility] 11-22-2023 10:17-0400 Heart rate 78 /min Dr. Steve Alexandre Work Phone: [facility] 11-22-2023 10:17-0400 Respiratory rate 16 /min Dr. Steve Alexandre Work Phone: [facility] 11-22-2023 10:17-0400 SaO2% (BldA) [Mass fraction] 97 % Dr. Steve Alexandre Work Phone: [facility] 11-22-2023 10:17-0400 Systolic blood pressure 122 mm[Hg] Dr. Steve Alexandre Work Phone: [facility] 03-12-2023 10:26-0400 Body height 160.[address] Steve lAexandre Work Phone: [facility] 03-12-2023 10:26-0400 Body mass index (BMI) [Ratio] 33.8 kg/m2 Dr. Steve Alexandre Work Phone: [facility] 03-12-2023 10:26-0400 Body temperature 97.5 [degF] Dr. Steve Alexandre Work Phone: [facility] 03-12-2023 10:26-0400 Body weight 86.[address] Steve Alexandre Work Phone: [facility] 03-12-2023 10:26-0400 Diastolic blood pressure 64 mm[Hg] Dr. Steve Alexandre Work Phone: [facility] 03-12-2023 10:26-0400 Heart rate 83 /min Dr. Steve Alexandre Work Phone: [facility] 03-12-2023 10:26-0400 Respiratory rate 16 /min Dr. Steve Alexandre Work Phone: [facility] 03-12-2023 10:26-0400 SaO2% (BldA) [Mass fraction] 99 % Dr. Steve Alexandre Work Phone: [facility] 03-12-2023 10:26-0400 Systolic blood pressure 110 mm[Hg] Dr. Steve Alexandre Work Phone: [facility] 09-15-2022 09:53-0500 Body temperature 97.9 [degF] Dr. Steve Alexandre Work Phone: [facility] 09-15-2022 09:53-0500 Diastolic blood pressure 46 mm[Hg] Dr. Steve Alexandre Work Phone: [facility] 09-15-2022 09:53-0500 Heart rate 73 /min Dr. Steve Alexandre Work Phone: [facility] 09-15-2022 09:53-0500 Respiratory rate 18 /min Dr. Steve Alexandre Work Phone: [facility] 09-15-2022 09:53-0500 SaO2% (BldA) [Mass fraction] 95 % Dr. Steve Alexandre Work Phone: [facility] 09-15-2022 09:53-0500 Systolic blood pressure 121 mm[Hg] Dr. Steve Alexandre Work Phone: [facility] 09-14-2022 17:17-0500 Body mass index (BMI) [Ratio] 33.1 kg/m2 Dr. Steve Alexandre Work Phone: [facility] 09-14-2022 12:22-0500 Body height 160.[address] Steve Alexandre Work Phone: [facility] 09-14-2022 12:22-0500 Body weight 84.[address] Steve Alexandre Work Phone: [facility] 09-14-2022 11:39-0500 Body temperature 98 [degF] Dr. Steve Alexandre Work Phone: [facility] 09-14-2022 11:39-0500 Diastolic blood pressure 63 mm[Hg] Dr. Steve Alexandre Work Phone: [facility] 09-14-2022 11:39-0500 Heart rate 82 /min Dr. Steve Alexandre Work Phone: [facility] 09-14-2022 11:39-0500 Respiratory rate 20 /min Dr. Steve Alexandre Work Phone: [facility] 09-14-2022 11:39-0500 SaO2% (BldA) [Mass fraction] 97 % Dr. Steve Alexandre Work Phone: [facility] 09-14-2022 11:39-0500 Systolic blood pressure 115 mm[Hg] Dr. Steve Alexandre Work Phone: [facility] 09-14-2022 10:03-0500 Body height 167.[address] Steve Alexandre Work Phone: [facility] 09-14-2022 10:03-0500 Body mass index (BMI) [Ratio] 31.1 kg/m2 Dr. Steve Alexandre Work Phone: [facility] 09-14-2022 10:03-0500 Body weight 87.[address] Steve Alexandre Work Phone: [facility] 07-17-2022 12:56-0500 Body temperature 97.5 [degF] Dr. Steve Alexandre Work Phone: [facility] 07-17-2022 12:56-0500 Body weight 84.[address] Steve Alexandre Work Phone: [facility] 07-17-2022 12:56-0500 Diastolic blood pressure 64 mm[Hg] Dr. Steve Alexandre Work Phone: [facility] 07-17-2022 12:56-0500 Heart rate 76 /min Dr. Steve Alexandre Work Phone: [facility] 07-17-2022 12:56-0500 Respiratory rate 16 /min Dr. Steve Alexandre Work Phone: [facility] 07-17-2022 12:56-0500 SaO2% (BldA) [Mass fraction] 98 % Dr. Steve Alexandre Work Phone: [facility] 07-17-2022 12:56-0500 Systolic blood pressure 104 mm[Hg] Dr. Steve Alexandre Work Phone: [facility] 04-20-2022 15:55-0400 Body height 160.[address] Steve Alexandre Work Phone: [facility] Work Phone: 04-20-2022 15:55-0400 Body mass index (BMI) [Ratio] 33.3 kg/m2 Dr. Steve Alexandre Work Phone: [facility] Work Phone: 04-20-2022 15:55-0400 Body temperature 97.5 [degF] Dr. Steve Alexandre Work Phone: [facility] Work Phone: 04-20-2022 15:55-0400 Body weight 85.[address] Steve Alexandre Work Phone: [facility] Work Phone: 04-20-2022 15:55-0400 Diastolic blood pressure 80 mm[Hg] Dr. Steve Alexandre Work Phone: [facility] Work Phone: 04-20-2022 15:55-0400 Heart rate 57 /min Dr. Steve Alexandre Work Phone: [facility] Work Phone: 04-20-2022 15:55-0400 Respiratory rate 16 /min Dr. Steve Alexandre Work Phone: [facility] Work Phone: 04-20-2022 15:55-0400 SaO2% (BldA) [Mass fraction] 91 % Dr. Steve Alexandre Work Phone: [facility] Work Phone: 04-20-2022 15:55-0400 Systolic blood pressure 122 mm[Hg] Dr. Steve Alexandre Work Phone: [facility] Work Phone: 04-08-2022 14:09-0400 Body mass index (BMI) [Ratio] 33.3 kg/m2 Dr. Steve Alexandre Work Phone: [facility] Work Phone: 04-08-2022 14:09-0400 Body temperature 96.6 [degF] Dr. Steve Alexandre Work Phone: [facility] Work Phone: 04-08-2022 14:09-0400 Body weight 85.[address] Steve Alexandre Work Phone: [facility] Work Phone: 04-08-2022 14:09-0400 Diastolic blood pressure 72 mm[Hg] Dr. Steve Alexandre Work Phone: [facility] Work Phone: 04-08-2022 14:09-0400 Heart rate 50 /min Dr. Steve Alexandre Work Phone: [facility] Work Phone: 04-08-2022 14:09-0400 Respiratory rate 18 /min Dr. Steve Alexandre Work Phone: [facility] Work Phone: 04-08-2022 14:09-0400 SaO2% (BldA) [Mass fraction] 97 % Dr. Steve Alexandre Work Phone: [facility] Work Phone: 04-08-2022 14:09-0400 Systolic blood pressure 114 mm[Hg] Dr. Steve Alexandre Work Phone: [facility] Work Phone: 01-01-2022 14:18-0400 Body mass index (BMI) [Ratio] 33.2 kg/m2 Dr. Steve Alexandre Work Phone: [facility] Work Phone: 01-01-2022 14:18-0400 Body temperature 97.9 [degF] Dr. Steve Alexandre Work Phone: [facility] Work Phone: 01-01-2022 14:18-0400 Body weight 84.[address] Steve Alexandre Work Phone: [facility] Work Phone: 01-01-2022 14:18-0400 Diastolic blood pressure 68 mm[Hg] Dr. Steve Alexandre Work Phone: [facility] Work Phone: 01-01-2022 14:18-0400 Heart rate 75 /min Dr. Steve Alexandre Work Phone: [facility] Work Phone: 01-01-2022 14:18-0400 Respiratory rate 16 /min Dr. Steve Alexandre Work Phone: [facility] Work Phone: 01-01-2022 14:18-0400 SaO2% (BldA) [Mass fraction] 98 % Dr. Steve Alexandre Work Phone: [facility] Work Phone: 01-01-2022 14:18-0400 Systolic blood pressure 114 mm[Hg] Dr. Steve Alexandre Work Phone: [facility] Work Phone: Encounters Encounter Date Encounter Type Care Provider Facility Start: 03-05-2025 ambulatory Dina Baker ty:[facility] Start: 03-02-2025 ambulatory [facility] Start: 03-02-2025 ambulatory Steve Baker ty:[facility] Start: 02-28-2025 End: 02-28-2025 ambulatory [facility] Start: 02-26-2025 End: 02-26-2025 ambulatory [facility] Start: 02-23-2025 End: 02-23-2025 ambulatory Otilia Cameron [place] Start: 02-21-2025 End: 02-21-2025 ambulatory [facility] Start: 02-16-2025 End: 02-16-2025 ambulatory [facility] Start: 02-12-2025 End: 02-12-2025 ambulatory [facility] Start: 02-09-2025 End: 02-09-2025 ambulatory [facility] Start: 02-05-2025 End: 02-05-2025 ambulatory [facility] Start: 01-31-2025 Non-patient / Non-visit Dr. Richmond Ricardo MD -[facility] Work Phone: Start: 01-30-2025 Non-patient / Non-visit Dr. Tom Birmingham DO -[facility] Work Phone: Start: 01-30-2025 End: 01-31-2025 ambulatory Richmond Ricardo Facility:[facility] Start: 01-30-2025 End: 01-31-2025 Evaluation and management of inpatient Dr. Richmond Ricardo MD -[facility] Work Phone: Start: 01-30-2025 End: 01-31-[address] Steve Alexandre MD Work Phone: -[facility] Start: 01-17-[address] Steve Alexandre MD Work Phone: [facility] Start: 01-17-2025 End: 01-17-2025 Patient encounter procedure JOHANNE Edmondson -[facility] Work Phone: Start: 01-17-2025 End: 01-17-[address] Steve Alexandre MD Work Phone: [facility] Work Phone: Start: 01-10-2025 End: 01-10-2025 Patient encounter procedure Ricci REECE -[facility] Work Phone: Start: 01-10-2025 End: 01-10-2025 Patient encounter status Ricci REECE [facility] Start: 01-10-2025 End: 01-10-[address] Steve Alexandre MD Work Phone: [facility] Work Phone: Start: 01-10-2025 Non-patient / Non-visit Dr. Thai Hurst DO -[facility] Start: 01-10-2025 End: 01-10-[address] 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 Yordan Shen MD -[facility] Work Phone: Start: 12-15-2024 End: 12-15-[address] Steve Alexandre MD Work Phone: [facility] Work Phone: Start: 12-05-2024 End: 12-05-[address] Steve Alexandre MD Work Phone: [facility] Work Phone: Start: 12-05-2024 End: 12-05-[address] Steve Alexandre MD -Laboratory Work Phone: Start: 12-05-2024 End: 12-05-2024 ambulatory Steve Alexandre Facility:[facility] Start: 11-27-2024 End: 11-27-[address] Yordan Shen MD -[facility] Work Phone: Start: 11-27-2024 End: 11-27-2024 ambulatory Steve Alexandre Facility:[facility] Start: 11-21-2024 End: 11-21-2024 Patient encounter procedure Otilia REECE -[facility] Work Phone: Start: 11-21-2024 End: 11-21-[address] Steve Alexandre MD Work Phone: [facility] Work Phone: Start: 11-21-2024 End: 11-21-2024 ambulatory [facility] Facility:[facility] Start: 11-15-2024 End: 11-15-2024 Patient encounter procedure JOHANNE Edmondson -[facility] Work Phone: Start: 11-15-2024 End: 11-15-2024 ambulatory [facility] Facility:[facility] Start: 11-03-2024 End: 11-03-[address] Steve Alexandre MD -[facility] Work Phone: Start: 11-03-2024 End: 11-03-[address] Steve Alexandre MD Work Phone: [facility] Work Phone: Start: 11-03-2024 End: 11-03-2024 ambulatory [facility] Facility:[facility] Start: 09-25-2024 ambulatory Thai Hurst Facility:[facility] Start: 09-25-2024 Non-patient / Non-visit Dr. Thai Hurst DO -[facility] Start: 09-22-2024 End: 09-22-[address] Yordan Shen MD -[facility] Work Phone: Start: 09-22-2024 End: 09-22-2024 [facility] Start: 09-19-2024 [facility]ulatory [facility] Start: 09-19-2024 Non-patient / Non-visit Dr. Kalyan Adler MD -[facility] Start: 09-19-2024 End: 09-19-[address] Thai Hurst DO -Pulmonary Services/Neurology Work Phone: Start: 09-19-2024 End: 09-19-2024 ambulatory Thai Hurst Facility:[facility] Start: 08-23-2024 End: 08-23-[address] Thai Hurst DO -[facility] Work Phone: Start: 08-23-2024 End: 08-23-2024 ambulatory Thai Hurst Facility:[facility] Start: 08-07-2024 End: 08-07-2024 Admission to same day surgery center Dr. Liam Engle MD -[facility] Start: 08-07-2024 End: 08-07-2024 ambulatory Liam Engle Facility:[facility] Start: 06-23-2024 ambulatory Otilia Solaresi ty:[facility] Start: 06-21-2024 End: 06-21-2024 ambulatory STEVE ALEXANDRE Facility:[facility] Start: 06-21-2024 End: 06-21-2024 Patient encounter procedure Panda Mcguire OD Work Phone: Optometry Comment on above: Regular astigmatism, bilateral (Primary Dx); Hyperopia, bilateral; Presbyopia; Combined forms of age-related cataract of both eyes; Choroidal nevus of both eyes; Vitreous floaters of both eyes Start: 06-14-2024 End: 06-14-2024 ambulatory Steve Alexandre Facility:[facility] Start: 06-14-2024 End: 06-14-2024 ambulatory Efmichael Desaie Facility:[facility] Start: 05-04-2024 End: 05-04-2024 ambulatory Franco Tam Facility:[facility] Start: 04-10-2024 End: 04-10-2024 ambulatory Otilia Cameron Facility:[facility] Start: 04-10-2024 End: 04-10-2024 ambulatory Otilia Cameron Facility:[facility] Start: 03-30-2024 End: 03-30-2024 ambulatory Hirampresidiodaniela Alexandre Facility:[facility] Start: 03-10-2024 End: 03-10-2024 ambulatory Steve Alexandre [facility] Start: 03-10-2024 End: 03-10-2024 ambulatory [facility] Jossueivan Facility:[facility] Start: 12-04-2023 End: 12-04-2023 Emergency department [facility] Start: 11-22-2023 End: 11-22-[address] Steve Alexandre Work Phone: [facility] Work Phone: Start: 11-22-2023 End: 11-22-[address] Steve Alexandre Work Phone: [facility] Work Phone: Start: 03-12-2023 End: 03-12-[address] Steve Alexandre Work Phone: [facility] Work Phone: Start: 03-12-2023 End: 03-12-[address] Steve Alexandre Work Phone: [facility] Work Phone: Start: 09-15-2022 Non-patient / Non-visit Dr. Steve Alexandre Work Phone: [facility] Start: 09-14-2022 Non-patient / Non-visit Dr. Steve Alexandre Work Phone: [facility] Start: 09-14-2022 End: 09-15-2022 Evaluation and management of inpatient Dr. Steve Alexandre Work Phone: [facility] Start: 09-14-2022 End: 09-15-[address] Steve Alexandre Work Phone: [facility] Work Phone: Start: 07-30-2022 End: 07-30-[address] Steve Alexandre Work Phone: [facility] Work Phone: Start: 07-30-2022 End: 07-30-[address] Steve Alexandre Work Phone: [facility] Start: 07-17-2022 End: 07-17-[address] Steve Alexandre Work Phone: [facility] Work Phone: Start: 07-17-2022 End: 07-17-[address] Steve Alexandre Work Phone: [facility] Start: 04-20-2022 End: 04-20-[address] Steve Alexandre Work Phone: [facility] Work Phone: Start: 04-20-2022 End: 04-20-[address] Steve Alexandre Work Phone: [facility] Start: 04-08-2022 End: 04-08-[address] Steve Alexandre Work Phone: [facility] Start: 01-01-2022 End: 01-01-[address] Steve Alexandre Work Phone: [facility] Start: [address] Steve Alexandre Work Phone: [facility] Start: 09-05-[address] Steve Alexandre Work Phone: [facility] Start: 06-17-2018 End: 06-18-2018 Patient encounter procedure Dave Fournier Facility:[facility] Start: 06-17-2018 Patient encounter procedure Facility:[id number] Start: 02-23-2018 Patient encounter MARLEY VASQUEZ [facility] Procedures Date Procedure Procedure Detail Performing Clinician Start: 01-31-[address] Odilon Alexandre MD Work Phone: Start: 01-30-2025 X-ray of knee, one or two views Dr. Hiram Alexandre MD Work Phone: Start: 01-30-2025 Total replacement of right knee joint Dr. Steve Alexandre MD Work Phone: Start: 11-27-2024 MRI of thoracic spine Dr. [...] the productionof interferon gamma. Chemiluminescence immunoassaymethodologyPerformed at: [facility] [id number] Director: Edin Prater PhD, Phone: [phone] Start: 11-21-2024 Vitamin D, 25-hydroxy measurement Dr. [...] Work Phone: Start: 09-06-2019 Colonoscopy Panda Mcguire II OD Work Phone: Start: 03-17-2006 Lipid 1996 panel - Serum or Plasma Panda samaniego II OD Work Phone: H/O: section History of C-sectio n Dr. Steve Alexandre Work Phone: History of cholecystectomy Hx of cholecystectomy Dr. Steve Alexandre Work Phone: Comment on above: 09/18/2019 [...] EST Office Visit [facility] [address] [place] [address] Panda Mcguire II, OD [address] [address] Eye exam/[facility] Comment on above: Eye exam/[facility] Start: 01-31-2025 Patient discharge [facility] Start: 01-30-2025 Following clinical p athway protocol [facility] Start: 01-30-2025 Ambulation therapy management [facility] Start: 01-30-2025 Application of device [facility] Start: 01-30-2025 Application of elast ic bandage [facility] Start: 01-30-2025 Assessment of risk o f venous thromboembolism [facility] Start: 01-30-2025 Catheterization of vein [facility] Start: 01-30-2025 Exercises [facility] Start: 01-30-2025 Incentive spirometry [facility] Start: 01-30-2025 Introduction of urin shruti catheter [facility] Start: 01-30-2025 Measuring intake and output [facility] Start: 01-30-2025 Neurovascular assessment [facility] Start: 01-30-2025 Patient education [facility] Start: 01-30-2025 Procedure discontinued [facility] Start: 01-30-2025 Provision of activit y privileges [facility] Start: 01-30-2025 Provision of overbed trapeze [facility] Start: 01-30-2025 Recommendation to co ntinue with treatment [facility] Start: 01-30-2025 Referral to occupati onal therapist [facility] Start: 01-30-2025 Referral to service [facility] Start: 01-30-2025 Vital signs measurements [facility] Start: 01-30-2025 Wound care [facility] Start: 01-30-2025 [facility] Start: 01-30-2025 Admission procedure [facility] Start: 01-30-2025 Consultation [facility] Start: 12-13-2024 Measurement of respi ratory function [facility] Start: 08-07-2024 Anes esoph thyrd lar ynx trach & lymph neck 1yr ANESTH NECK ORGAN 1YR/> [facility] Start: 08-07-2024 Largsc exc bola&/strp g cords/epigl mcrscp/tlscp LARYNSCOP W/TUMR EXC + SCOPE [facility] Start: 08-07-2024 Patient discharge [facility] Start: 08-07-2024 Ambulation without limitation [facility] Start: 08-07-2024 Elevation of head of bed [facility] Start: 08-07-2024 Medical regimen orde rs management [facility] Start: 08-07-2024 Medication education [facility] Start: 08-07-2024 Procedure discontinued [facility] Start: 08-07-2024 Taking patient vital signs [facility] Start: 08-07-2024 Vital signs measurements [facility] Start: 11-22-2023 Patient referral [facility] Work Phone: Start: 08-02-2023 Advance Directive Discussion Advance Directive Discussion [facility] Start: 03-12-2023 Patient referral [facility] Work Phone: Start: 09-15-2022 Patient discharge [facility] Start: 09-14-2022 Following clinical p athway protocol [facility] Start: 09-14-2022 Ambulation without limitation [facility] Start: 09-14-2022 Assessment of risk o f venous thromboembolism [facility] Start: 09-14-2022 Cardiac monitoring [facility] Start: 09-14-2022 Catheterization of vein [facility] Start: 09-14-2022 Continuous pulse oximetry [facility] Start: 09-14-2022 Elevation of head of bed [facility] Start: 09-14-2022 Exercises [facility] Start: 09-14-[address] anned interventions [facility] Start: 09-14-2022 Insertion of cathete r into peripheral vein [facility] Start: 09-14-2022 Measuring intake and output [facility] Start: 09-14-2022 Notification of physician [facility] Start: 09-14-2022 Oxygen therapy [facility] Start: 09-14-2022 Providing care accor ding to standard [facility] Start: 09-14-2022 Referral to occupati onal therapist [facility] Start: 09-14-2022 Referral to service [facility] Start: 09-14-2022 Speech therapy assessment [facility] Start: 09-14-2022 Tobacco use cessatio n education [facility] Start: 09-14-2022 [facility] Start: 09-14-2022 Admission procedure [facility] Start: 09-14-2022 CT of head without contrast STROKE Brain/Head without Cont [facility] Start: 09-14-2022 CT Unspecified body region [facility] Start: 09-14-2022 Oxygen therapy [facility] Start: 09-14-2022 [facility] Start: 10-31-2021 Screening for malign ant neoplasm of colon [facility] Start: 09-06-2020 Screening for malign ant neoplasm of colon Colonoscopy [facility] Start: 2017 Screening for osteoporosis Bone Dens ity Screening [facility] Start: 03-17-2011 Lipid panel Lipid Screening 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 Compensation Claims Adjuster taisha Disease Visit Annual PCP Team Chronic Disease Visit [facility] Start: 1970 Depression Screening Depression Scre ening [facility] CBC W Auto Different ial panel - Blood [facility] CT Chest WO contrast [facility] DXA Bone [Mass/Area] Bone density [facility] Measurement of respi ratory function [facility] Patient referral [facility] Work Phone: Vitamin D, 25-hydrox y measurement [facility] XR Spine Lumbar and Sacrum GE 4 Views [facility] Work Phone: Immunizations Immunization Date Immunization Notes Care Provider [facility] 05-21-2022 Influenza, high dose seasonal Dr. Steve Alexandre MD Work Phone: [facility] 05-21-2022 influenza, high dose seasonal, preservative-free Dr. Steve Alexandre Work Phone: [facility] 07-18-2021 Covny (Moderna) Dr. Katie Alexandre Work Phone: [facility] 11-01-2020 Cov[place] State (Moderna) Dr. Katie Alexandre Work Phone: [facility] 10-02-2020 Cov[employer] [place] (Moderna) Dr. Katie Alexandre Work Phone: [facility] 05-02-[address] Steve Alexandre Work Phone: [facility] 05-22-2008 influenza virus vaccine, unspecified formulation Panda Mcguire II, OD Work Phone: [facility] Payers Date Payer Category Payer Self-pay [id number] 2021 Medicare [id number] 2018 Unknown 1950 Unknown [id number] 2.16.84 0.1.696304.3.579.2.717 1950 Unknown [id number] 2.16. 840.1.965873.3.579.2.356 1950 Unknown [id number] 2.16. 840.1.037534.3.579.2.902 1950 Unknown [id number] 2.16.8 40.1.420272.3.579.2.651 1950 Unknown [id number] 2.16.8 40.1.014363.3.579.2.651 1950 Unknown [id number] 2.16.8 40.1.611709.3.579.2.1243 1950 Unknown [id number] 2.16.8 40.1.187408.3.579.2.1242 1950 Unknown [id number] 2.16.8 40.1.995200.3.579.2.3 1950 Unknown [id number] 2.16.8 40.1.498422.3.579.2.1243 1952 Unknown [id number] 2.16.8 40.1.481776.3.579.2.1242 1950 Unknown [id number] 2.16.8 40.1.158131.3.579.2.1242 1952 Unknown [id number] 2.16.8 40.1.521555.3.579.2.3 1950 Unknown [id number] 2.16.8 40.1.819020.3.579.2.1242 1952 Unknown [id number] 2.16.8 40.1.949445.3.579.2.1243 Medicare [id number] Unknown [id number] Unknown [id number] Unknown ANTHEM [id number] Unknown [id number] 2.16.8 40.1.162606.3.579.2.462 Unknown [id number] 2.16.8 40.1.578851.3.579.2.462 Unknown [id number] 2.16.8 40.1.152669.3.579.2.462 Unknown [id number] 2.16.8 40.1.673055.3.579.2.462 Unknown [id number] 2.16.8 40.1.711509.3.579.2.462 Unknown [id number] 2.16.8 40.1.088058.3.579.2.462 Unknown [id number] 2.16.8 40.1.501907.3.579.2.462 Unknown [id number] 2.16.8 40.1.166553.3.579.2.462 Unknown [id number] 2.16.8 40.1.125003.3.579.2.462 Unknown [id number] 2.16.8 40.1.602672.3.579.2.462 Unknown [id number] 2.16.8 40.1.247894.3.579.2.462 Unknown [id number] 2.16.8 40.1.526686.3.579.2.462 Unknown [id number] 2.16.8 40.1.861341.3.579.2.462 Unknown [id number] 2.16.8 40.1.810487.3.579.2.462 Unknown [id number] 2.16.8 40.1.631661.3.579.2.462 Unknown [id number] 2.16.8 40.1.719117.3.579.2.462 Unknown [id number] 2.16.8 40.1.207993.3.579.2.462 Unknown [id number] 2.16.8 40.1.552564.3.579.2.462 Unknown [id number] 2.16.8 40.1.099384.3.579.2.462 Unknown [id number] 2.16.8 40.1.580079.3.579.2.462 Unknown [id number] 2.16.8 40.1.434617.3.579.2.462 Unknown [id number] 2.16.8 40.1.121080.3.579.2.462 Unknown [id number] 2.16.8 40.1.797721.3.579.2.462 Unknown [id number] 2.16.8 40.1.110209.3.579.2.462 Unknown [id number] 2.16.8 40.1.562790.3.579.2.462 Unknown [id number] 2.16.8 40.1.059573.3.579.2.462 Unknown [id number] 2.16.8 40.1.155332.3.579.2.462 Unknown [id number] 2.16.8 40.1.231277.3.579.2.462 Unknown [id number] 2.16.8 40.1.285989.3.579.2.462 Unknown [id number] 2.16.8 40.1.822456.3.579.2.462 Unknown [id number] 2.16.8 40.1.248139.3.579.2.462 Unknown [id number] 2.16.8 40.1.353403.3.579.2.462 Unknown [id number] 2.16.8 40.1.696006.3.579.2.462 Unknown [id number] 2.16.8 40.1.365452.3.579.2.462 Unknown [id number] 2.16.8 40.1.524741.3.579.2.462 Social History Date Type Detail Facility Start: 04-20-2022 End: 06-11-2023 Tobacco smoking status NHIS Unknown if ever smoked [facility] Start: 09-05-2019 Occasional [facility] Start: 09-05-2019 None [facility] Start: 09-05-2019 Spouse/ Signif icant Other [facility] Start: 1950 Sex Assigned At Female [facility] Start: 02-13-2020 End: 01-04-2025 Tobacco smoking status NHIS Ex-smoker [facility] History of tobacco use Current smoker [facility] History of tobacco use Cigarette Smoker [facility] Start: 02-13-2020 End: 05-12-2023 Cigarettes smoked current (pack per day) - Reported 0.5 [facility] Start: 02-13-2020 Tobacco use and exposure Smokeless tobacco non-user [facility] Start: 06-21-2024 Alcoholic beverage intake Current drinker of alcohol (finding) [facility] Start: 05-12-2023 Tobacco use panel [facility] National Score (1-100), lower number is lower risk 79 [facility] Start: 10-29-2008 Alcohol Comment 1-2 drinks per week. Caffeine: prefers decaf [facility] Start: 1950 Sex assigned at Not on file [facility] Start: 11-06-2024 End: 11-25-2024 Sex Female (finding) [facility] NEGATED: Highlighted row Not [facility] Medical Equipment Procedure Code Equipment Code Equipment Origin al Text Equipment Identifier Dates Total cholecystectomy with exploration of common bile duct CLIP,MARIA E LOPEZ FDA Start: 09-18-2019 Total cholecystectomy with exploration of common bile duct CLIP,MARIA E LOPEZ FDA Start: 09-18-2019 Total cholecystectomy with exploration of common bile duct CLIP,MARIA E LOPEZ FDA Start: 09-18-2019 Total cholecystectomy with exploration of common bile duct CLIP,MARIA E LOPEZ FDA Start: 09-18-2019 Total cholecystectomy with exploration of common bile duct CLIP,MARIA E LOPEZ FDA Start: 09-18-2019 Total cholecystectomy with exploration of common bile duct CLIP,HEMJUSTUS LOPEZ FDA Start: 09-18-2019 Total cholecystectomy with exploration of common bile duct CLIP,MARIA E LOPEZ FDA Start: 09-18-2019 Total cholecystectomy with exploration of common bile duct CLIP,HEMJUSTUS LOPEZ FDA Start: 09-18-2019 Total cholecystectomy with exploration of common bile duct CLIP,MARIA E LOPEZ FDA Start: 09-18-2019 Total cholecystectomy with exploration of common bile duct CLIP,MARIA E LOPEZ FDA Start: 09-18-2019 Total cholecystectomy with [...] cholecystectomy with exploration of common bile duct CLIP,MARIA E LOPEZ FDA Start: 09-18-2019 Total cholecystectomy with exploration of common bile duct CLIP,MARIA E LOPEZ FDA Start: 09-18-2019 Total cholecystectomy with exploration of common bile duct CLIP,HEMJUSTUS LOPEZ FDA Start: 09-18-2019 Total cholecystectomy with exploration of common bile duct CLIP,MARIA E LOPEZ FDA Start: 09-18-2019 Total cholecystectomy with exploration of common bile duct CLIP,HEMJUSTUS LOPEZ FDA Start: 09-18-2019 Total cholecystectomy with exploration of common bile duct CLIP,HEMJUSTUS LOPEZ FDA Start: 09-18-2019 Total cholecystectomy with exploration of common bile duct CLIP,HEMJUSTUS LOPEZ FDA Start: 09-18-2019 Total cholecystectomy with exploration of common bile duct CLIP,HEMJUSTUS LOPEZ FDA Start: 09-18-2019 Total cholecystectomy with exploration of common bile duct CLIP,MARIA E LOPEZ FDA Start: 09-18-2019 Total cholecystectomy with exploration of common bile duct CLIP,MARIA E LOPEZ FDA Start: 09-18-2019 Total cholecystectomy with exploration of common bile duct CLIP,MARIA E LOPEZ FDA Start: 09-18-2019 Total cholecystectomy with exploration of common bile duct CLIP,MARIA E LOPEZ FDA Start: 09-18-2019 Total cholecystectomy with exploration of common bile duct CLIP,MARIA E LOPEZ FDA Start: 09-18-2019 Total cholecystectomy with exploration of common bile duct CLIP,MARIA E LOPEZ FDA Start: 09-18-2019 ([id number]) Coated knee femu r prosthesis ()[id number] FDA Start: 01-30-2025 ([id number]) Coated knee tibi a prosthesis ()[id number] FDA Start: 01-30-2025 Orthopaedic ceme nt, non-antimicrobial ()[id number] FDA Start: 01-30-2025 ([id number]) Polyethylene patella prosthesis ()[id number] FDA Start: 01-30-2025 ([id number]) Tibial insert [id number] FDA Start: 01-30-2025 Goals Date Patient Goal Desired Activity /State Functional Status Date Assessment Result Facility 01-31-2025 Functional status Ambulates [facility] Work Phone: 09-15-2022 Functional status Bedrest [facility] Work Phone: Mental Status Date Assessment Result Facility 01-31-2025 Cognitive function Level Of Cons ciousness Awake;Alert;Appropriate;Follow s Commands [facility] Work Phone: 01-31-2025 Cognitive function Comprehension Ability Demonstrates ability to follow instructions/comprehend [facility] Work Phone: 01-30-2025 Cognitive function Voice/Name [facility] Work Phone: 08-07-2024 Cognitive function Voice/Name;Touch/Shaki ng [facility] Work Phone: 09-15-2022 Cognitive function Voice/Name [facility] Work Phone: 09-14-2022 Cognitive function Level Of Cons ciousness Awake;Alert;Appropriate;Follow s Commands [facility] Work Phone: Clinical Notes 09-14-2022 to 01-31-2025 Note Date & Type Note Facility 01-31-2025 Consult note [facility] 01-31-2025 Consult note Note Date/Time January 31, 2025 10:56am [facility] Medical Records Department [address] [address] Counseling Note - Pharmacy 01/31/25 1055 MR#: [id number] Acct: [id number] Name: ALMA XIONG Rep #:[id number] : 1950 74 From: Cynthia Stevens PCP: Dr. Steve Alexandre MD Status:A DM RANDOLPH Y Location: [place] [address] Pharmacy [place] Med Rec Counseling Pharmacy Service has performed discharge medication reconciliation and counseling for this patient. 1. ACETAMINOPHEN 1000MG PO Q8 2. ASPIRIN 81MG PO BIDCM X 4 WEEKS 3. OXYCODONE 5-10MG PO Q4H PRN PAIN 4. SENNA/DOCUSATE 2T PO BID UNTIL FIRST BM, THEN PRN CONSTIPATION The patient's discharge medication list was reviewed for discrepancies and discrepancies were resolved. The patient was counseled on the following discharge medications and changes in medications for homegoing were reviewed. The Reason for Use, instructions for use, and potential side effects were reviewed for all new medications. The patient's questions regarding all of their medications were answered. The patient was able to verbally demonstrate an understanding of their dischargemedications. Medications at Discharge Home Medications omeprazole 40 mg capsule,delayed release 40 mg PO BID gerd #60 caps 05/10/24 alendronate 70 mg tablet 70 mg PO QWEEK #12 TABLETS 05/22/24 albuterol sulfate 90 mcg/actuation aerosol inhaler 2 puff inhalation Q4H PRN shortness of breath or wheezing #8.5 grams 08/23/24 paroxetine HCl 40 mg tablet 40 mg PO DAILY #90 tabs 09/18/24 levothyroxine 150 mcg tablet 150 mcg PO DAILY #90 tabs 10/05/24 amitriptyline 25 mg tablet 25 mg PO QHS #90 tabs 10/23/24 indapamide 1.25 mg tablet 1.25 mg PO QAM htn #90 tabs 12/06/24 atenolol 50 mg tablet 50 mg PO DAILY #90 tabs 12/28/24 cholecalciferol (vitamin D3) 1,250 mcg (50,000 unit) capsule 1,250 mcg PO GARZA #20caps 12/28/24 fluticasone propionate 220 mcg/actuation HFA aerosol inhaler 2 puff inhalation BID #12 grams 01/17/25 acetaminophen 500 mg tablet 1,000 mg (2 x 500 mg) PO TID 14 days #84 tabs 01/31/25 aspirin 81 mg chewable tablet 81 mg PO BIDCM 30 days #60 tabs 01/31/25 oxycodone 5 mg tablet 5 - 10 mg (1 - 2 x 5 mg) PO Q4H PRN PRN As Needed For Pain7 days #52 tabs 01/31/25 sennosides 8.6 mg-docusate sodium 50 mg tablet (Stimulant Laxative Plus) 2 tab PO BID 4 days #16 tabs 01/31/25 01/31/25 1056 <Electronically signed by Cynthia Stevens> Date _ Cynthia Stevens Cosigner Signature (if applicable): CC: ~ Signed [facility] Work Phone: [phone]) 205-390807-02-2025 Discharge summary Author Ty Ericksonmine [facility] Note Date/Time January 31, 2025 9:42a m [facility] Medical Records Department [address] [place] [address] Instructions for Home/Discharge Instructions 01/31/25 0935 MR#: [id number] Acct: [id number] Name: ALMA XIONG Rep #:[id number] : 1950 74 From: Ty REECE PA-C PCP: Dr. Steve Alexandre MD Status:A DM RANDOLPH Discharge Instructions Diet Discharge Diet: No restrictions DC O2, CPAP, BIPAP needs Home O2 Discharge instructions: No Dressing / Incision Discharge Activity: May Not Drive (No driving for 6 weeks postoperatively. Mustalso be off all narcotics and able to walk 100 feet without the use of cane or walker.) May shower in (days): 1 (Please turn dressing away from water. Okay to get wet as long as dressing is intact to skin.) Ice area for (Minutes): 20 (Every 1-2 hours while awake. Please place barrier between the skin and ice pack.) Weight Bearing Status: Weight bearing as tolerated Keep extremity elevated above heart level: Operative Extremity Dressing / Incision Call your doctor if your incision/area has: Continuous Slow Oozing, Sudden Increased Bleeding, Increased Pain/ Swelling, Increased Redness and Foul Smelling Discharge Call your doctor if you observe: Fever of 101 or Higher, Coldness, Increased Pain, Numbness or Tingling, Change in Color, Shortness of breath, Chest pain, Calf discomfort and Uncontrolled pain Remove Dressing in: 4 days (Okay to remove dressing on February 04, 2025) Additional Dressing/Incision Instructions:: Follow [facility] Post-op Instructions. Recommend getting up every hour while awake and walking for several minutes. If no bowel movement by February 02, 2025, we recommend you add in MiraLAX. If you do not have any bowel movement by Wednesday contact our office. Once postoperative dressing has been removed only use gentle soap and water overthe incision. Do not use any ointments, Neosporin, salves, alcohol pads over the incision for 6 weeks postoperatively. Do not submerge underwater for 6 weeks postoperatively. Continue with AMMON hose/elastic stockings for 2 weeks postoperatively. May remove at nighttime but needs to be placed back on the leg during the day. Do NOT use alcohol with narcotic pain medication. Do NOT make important decisions while taking narcotic medication. If you have problems with taking your medication (rash, itching, nausea, etc.) call the office at once. Follow Up Care Test Results: Test results from this visit will be discussed in further detail at your follow- up appointment, if applicable. Discharge Plan Admission Admit Date/Time: 01/30/25 15:14 Attending Provider: Richmond Ricardo Primary Care Provider: Steve Alexandre Consulting Providers: Tom Birmingham; Matt Yu; Matt Lema Discharge Orders/Prescriptions Prescriptions: New acetaminophen 500 mg Tablet 1,000 mg PO TID 14 Days Qty: 84 0RF Rx Instructions: Do not take more than 3000 mg Tylenol in a 24-hour period. aspirin 81 mg Tablet,Chewable 81 mg PO BIDCM 30 Days Qty: 60 0RF Rx Instructions: Take 81 mg aspirin twice daily for 4 weeks postoperatively for DVT prophylaxis. oxycodone 5 mg Tablet 5 - 10 mg PO Q4H PRN PRN (Reason: As Needed For Pain) 7 Days Qty: 52 0RF sennosides-docusate sodium [Stimulant Laxative Plus] 8.6-50 mg Tablet 2 tab PO BID 4 Days Qty: 16 0RF Rx Instructions: Take until first bowel movement, then as needed Continued albuterol sulfate 90 mcg/actuation HFA aerosol inhaler 2 puff inhalation Q4H PRN (Reason: shortness of breath or wheezing) Qty: 8.5 1RF Rx Instructions: administer with spacer fluticasone propionate 220 mcg/actuation HFA aerosol inhaler 2 puff inhalation BID Qty: 12 11RF omeprazole 40 mg capsule,delayed release(DR/EC) 40 mg PO BID Qty: 60 2RF alendronate 70 mg tablet 70 mg PO QWEEK Qty: 12 1RF paroxetine HCl 40 mg tablet 40 mg PO DAILY Qty: 90 1RF levothyroxine 150 mcg tablet 150 mcg PO DAILY Qty: 90 1RF Rx Instructions: Take extra 1/2 tablet (75 mcg) once per week amitriptyline 25 mg tablet 25 mg PO QHS Qty: 90 1RF indapamide 1.25 mg tablet 1.25 mg PO QAM Qty: 90 1RF cholecalciferol (vitamin D3) 1,250 mcg (50,000 unit) capsule 1,250 mcg PO GARZA Qty: 20 2RF atenolol 50 mg tablet 50 mg PO DAILY Qty: 90 1RF Rx Instructions: TAKE 1 TABLET BY MOUTH DAILY FOR BLOOD PRESSURE/HEART RATE Discontinued acetaminophen 500 mg Tablet 1,000 mg PO DAILY PRN (Reason: Pain) Referrals / Follow Up: Physical,Therapy [Other] - 02/05/25 11:00 am Steve Alexandre MD [Primary Care Provider] - Ty Maynard PA-C [Med Staff - [facility]] - 02/12/25 10:45 am Disposition Disposition (needs filled in before D/C Order can be placed): Home, Self Care 01/31/25 0942<Electronically signed by Ty REECE PA-C>Ty REECE PA-C CC: Dr. Tom Birmingham DO; Dr. Steve Alexandre MD; Dr. Matt Yu MD; Dr. Matt Lema MD ~ Signed [facility] Work Phone: [phone]) 926-998207-02-2025 Progress [facility] Note Date/Time January 31, 2025 9:35a m [facility] Medical Records Department [address] [place] [id number] Progress Note - Orthopedic 01/31/2531 MR#: [id number] Acct: [id number] Name: ALMA XIONG Rep #:[id number] : 1950 74 From: Ty REECE PA-C PCP: Dr. Steve Alexandre MD Status:A DM RANDOLPH Location: DE3 [id number] Subjective Subjective The patient was sitting in bedside chair upon examination. Patient denies any chest pain, shortness of breath, dizziness, lightheadedness, nausea or vomiting,or calf pain. Pain is controlled on medications. No adverse overnight events. Patient has been up working with therapy already. She does have pain when she is up and moving. Pain has been tolerable. Plan is for patient to go home and she is ready for this today. Objective Data Objective Data Vital Signs: Vital Signs Temp Pulse Resp BP Pulse Ox O2 Del Method O2 Flow Rate 97.9 F 63 18 108/44 L 95 Room Air 2 01/31/25 08:14 01/31/25 08:14 01/31/25 08:14 01/31/25 08:14 01/31/25 08:14 01/31/25 08:14 01/31/25 00:56 Oxygen Flow Rate (L/min) 2 Oxygen Delivery Method Room Air Weight: 88 kg Body Mass Index (BMI) 33.1 Intake & Output: Intake and Output for Last 24 Hours 01/29/25 01/30/25 01/31/25 23:59 23:59 23:59 Intake Total 2566.67 / 2566.67 350 / 350 Output Total 200 / 200 Balance 2366.67 / 2366.67 350 / 350 Lab / Micro Data 01/31/25 05:40 01/31/25 05:40 Labs: Laboratory Results - last 24 hr 01/30/25 11:54: POC Glucose 89 01/31/25 05:40: WBC 12.5 H, RBC 4.39, Hgb 12.0, Hct 35.9 L, MCV 81.8, MCH 27.3, MCHC 33.4, RDW Std Deviation 40.9, RDW Coeff of Annie 13.8, Plt Count 207, MPV 11.2, Sodium 135, Potassium 4.2, Chloride 103, Carbon Dioxide 20.5 L, Anion Gap 12, BUN 17, Creatinine 0.92, Estim Creat Clear Calc 59.35, Est GFR (MDRD) Non-Af66, BUN/Creatinine Ratio 18.2, Glucose 174 H, Calcium 8.8 Radiography Diagnostic Testing: Radiology Impression Knee X-Ray 01/30/25 16:00 IMPRESSION: Overlying skin mario are seen. The patient is postoperative right total knee arthroplasty, with satisfactory alignment seen. No complication is noted. No fracture site is evident. Reading Location: [place] [address] Physical Exam Narrative Vital signs stable and afebrile. SCDs and AMMON hose are in place bilaterally Patient is able to plantarflex and dorsiflex actively. Sensation is intact to light touch to saphenous, sural, superficial and deep peroneal, and tibial distribution. Main Mepilex dressing is clean dry and intact. Minimal drainage over the distalpin site Negative Homans bilaterally, negative signs and symptoms of DVT. Const alert, oriented x3 and no apparent distress Assessment & Plan Assessment/Plan (1) Status post right knee replacement: PLAN: 1. S/P robotic assisted right total knee arthroplasty POD #1 2. Continue Pain Medications: Tylenol and oxycodone. Patient had some decreased kidney function with GFR less than 60. We are holding off of nonsteroidal anti-inflammatories. We discussed the postoperative pain block in great detail. I did advise her that most patients postoperative day 2 is most painful. We discussed maintaining appropriate and adequate pain control for best recovery. 3. DVT Prophylaxis: Take 81 mg aspirin twice daily for 4 weeks postoperatively for DVT prophylaxis. Patient denies past history of DVT or pulmonary embolism. Patient will continue with AMMON hose for 2 weeks postoperatively 4. PT/OT: Weightbearing as tolerated with walker 5. H & H: 12.0/35.9, asymptomatic. Monitoring patient's hemoglobin and hematocrit with postoperative anemia without any intra operative complications. At this time no treatment is required. 6. Reactive leukocytosis: 12.5, Afebrile. Patient did receive Decadron intraoperatively. No clinical signs of infection. 7. Encouraged Incentive Spirometry 8. Patient is aware of postoperative constipation that can occur from 1-3 days postoperatively. Will continue with senna 2 tablets twice daily until first bowel movement. Patient was advised if not having a bowel movement after day 3 she is to contact orthopedics so appropriate change can be made. With our office closed due to the holiday on Wednesday I did advise her if she has not had abowel movement by Wednesday she will add in MiraLAX. If no further bowel movement by Wednesday she will contact our office. Patient voiced understanding. 9. Continue postoperative medical treatment per medicine 10. Disposition: Patient overall is doing very well this morning. Plan will befor discharge home today as long as patient's pain is adequately controlled, tolerates therapy, and remains medically stable. Patient would like her prescriptions E scribed to [facility] pharmacy. She has outpatient physical therapy established for February 05, 2025 due to the holiday weekend. I did recommend she work on the exercises twice daily up until her first PT appointment. She voiced understanding. She will follow-up per postoperative instructions. Patient will contact our office with any concerns or questions. We did discuss postoperative recovery in detail and all questionswere answered. I have reviewed the [place] Automated Rx Reporting System (OARRS) report for this patient for refill pattern and other prescriber involvement as part of the appropriate surveillance for the provision of acute and chronic controlled medications. The report was requested and reviewed on the date of this entry and was considered in the prescribing process. This dictation was created using voice recognition software. Phonetic and/or grammatical errors may exist. 01/31/25 0935 <Electronically signed by Ty REECE PA-C> Cosigner Signature (if applicable): CC: ~ Signed [facility] Work Phone: 1([phone] 426-205707-02-2025 Progress note Author Richmond Ricardo [facility] Note Date/Time January 31, 2025 9:10a m [facility] Medical Records Department [address] [place] [address] Progress Note - Hospitalist 01/31/25 0724 MR#: [id number] Acct: [id number] Name: ALMA XIONG Rep #:[id number] : 1950 74 From: Richmond Ricardo MD PCP: Dr. Steve Alexandre MD Status:A DM RANDOLPH Location: DE3 [id number] Reason for Visit Reason for Visit: Diagnoses Presence of right artificial knee joint (01/30/25) Subjective Subjective Patient is a 74-year-old lady who underwent an elective right knee replacement On 01/30/[address] Lema hospitalist service was consulted to assist with management of patient medical comorbidities Objective Data Objective Data Vital Signs: Vital Signs Temp Pulse Resp BP Pulse Ox O2 Del Method O2 Flow Rate 97.6 F L 59 L 16 110/47 L 100 Room Air 2 01/31/25 04:56 01/31/25 07:06 01/31/25 07:06 01/31/25 04:56 01/31/25 07:06 01/31/25 07:06 01/31/25 00:56 Oxygen Flow Rate (L/min) 2 Oxygen Delivery Method Room Air Weight: 88 kg Body Mass Index (BMI) 33.1 Intake & Output: Intake and Output for Last 24 Hours 01/29/25 01/30/25 01/31/25 23:59 23:59 23:59 Intake Total 2566.67 / 2566.67 Output Total 200 / 200 Balance 2366.67 / 2366.67 Lab / Micro Data 01/31/25 05:40 01/31/25 05:40 Labs: Laboratory Results - last 24 hr 01/30/25 11:54: POC Glucose 89 01/31/25 05:40: WBC 12.5 H, RBC 4.39, Hgb 12.0, Hct 35.9 L, MCV 81.8, MCH 27.3, MCHC 33.4, RDW Std Deviation 40.9, RDW Coeff of Annie 13.8, Plt Count 207, MPV 11.2 Radiography Diagnostic Testing: Radiology Impression Knee X-Ray 01/30/25 16:00 IMPRESSION: Overlying skin mario are seen. The patient is postoperative right total knee arthroplasty, with satisfactory alignment seen. No complication is noted. No fracture site is evident. Reading Location: [place] [address] Physical Exam Narrative GENERAL: cooperative HEENT: Atraumatic; normocephalic EYES; Anicteric, Normal Conjunctiva NECK; supple, normal thyroid, RESPIRATORY: Diminished to auscultation CARDIOVASCULAR: Regular S1 S2, GI: soft, normoactive bowel sounds, : No Renal angle tenderness; EXTREMITIES: No edema, no clubbing, MUSCULOSKELETAL: Right knee in surgical dressing NEURO: Awake; no lateralizing signs. SKIN: No Rash PSYCH; Flat affect Assessment & Plan Assessment/Plan (1) Status post right knee replacement: PLAN: Plan Patient is a 74-year-old lady who underwent an elective right knee replacement On 01/30/[address] Lema hospitalist service was consulted to assist with management of patient medical comorbidities 1. Right knee osteoarthritis ? Orthopedic surgery primary. S/p right robotic assisted total knee arthroplasty with Dr. Lema on 01/30. Tolerated procedure well, no intraoperative complications noted. Pain control, DVT prophylaxis and further postoperative care per orthopedics. Follow-up a.m. CBC and BMP. PT/OT/case management consulted. ? 01/31/2025; patient postoperative. So far uneventful except for relatively low blood 2. Hypertension ? 02/01/2020 held patient blood pressure medications this a.m. given low blood pressure 3. Anxiety/depression ? Continue home paroxetine and amitriptyline at night. 4. Hypothyroidism ? Continue home Synthroid. 5. GERD ? Continue home PPI. DVT prophylaxis: ? As per primary service?aspirin Time spent in the patient's overall evaluation,decision-making process, review of diagnostic data, adjustment of management, discussion with other providers, nursing nursing and ancillary staff involved in patient's care documentation, 35minutes Charges/Coding Visit Charges Inpatient E&M: 05304 Subs Hosp L2 01/31/25 0910 <Electronically signed by Richmond Ricardo MD> Cosigner Signature (if applicable): CC: ~ Signed [facility] Work Phone: 1(761) 631-336307-02-2025 Consult note [facility] Medical Records Department [address] [place] [address] Counseling Note - Pharmacy 01/31/25 1055 MR#: [id number] Acct: [id number] Name: ALMA XIONG Rep #:[id number] : 1950 74 From: Cynthia Stevens PCP: Dr. Steve Alexandre MD Status:A DM RANDOLPH Y Location: [place] [address] Pharmacy [facility] has performed discharge medication reconciliation and counseling for this patient. 1. ACETAMINOPHEN 1000MG PO Q8 2. ASPIRIN 81MG PO BIDCM X 4 WEEKS 3. OXYCODONE 5-10MG PO Q4H PRN PAIN 4. SENNA/DOCUSATE 2T PO BID UNTIL FIRST BM, THEN PRN CONSTIPATION The patient's discharge medication list was reviewed for discrepancies and discrepancies were resolved. The patient was counseled on the following discharge medications and changes in medications for homegoing were reviewed. The Reason for Use, instructions for use, and potential side effects were reviewed for all new medications. The patient's questions regarding all of their medications were answered. The patient was able to verbally demonstrate an understanding of their dischargemedications. Medications at Discharge Home Medications omeprazole 40 mg capsule,delayed release 40 mg PO BID gerd #60 caps 05/10/24 alendronate 70 mg tablet 70 mg PO QWEEK #12 TABLETS 05/22/24 albuterol sulfate 90 mcg/actuation aerosol inhaler 2 puff inhalation Q4H PRN shortness of breath orwheezing #8.5 grams 08/23/24 paroxetine HCl 40 mg tablet 40 mg PO DAILY #90 tabs 09/18/24 levothyroxine 150 mcg tablet 150 mcg PO DAILY #90 tabs 10/05/24 amitriptyline 25 mg tablet 25 mg PO QHS #90 tabs 10/23/24 indapamide 1.25 mg tablet 1.25 mg PO QAM htn #90 tabs 12/06/24 atenolol 50 mg tablet 50 mg PO DAILY #90 tabs 12/28/24 cholecalciferol (vitamin D3) 1,250 mcg (50,000 unit) capsule 1,250 mcg PO GARZA #20caps 12/28/24 fluticasone propionate 220 mcg/actuation HFA aerosol inhaler 2 puff inhalation BID #12 grams 01/17/25 acetaminophen 500 mg tablet 1,000 mg (2 x 500 mg) PO TID 14 days #84 tabs 01/31/25 aspirin 81 mg chewable tablet 81 mg PO BIDCM 30 days #60 tabs 01/31/25 oxycodone 5 mg tablet 5 - 10 mg (1 - 2 x 5 mg) PO Q4H PRN PRN As Needed For Pain7 days #52 tabs 01/31/25 sennosides 8.6 mg-docusate sodium 50 mg tablet (Stimulant Laxative Plus) 2 tab PO BID 4 days #16 tabs 01/31/25 01/31/25 1056 Date _ Cynthia Marroquin Signature (if applicable): Date CC: ~ Signed [facility]07-02-2025 Discharge summary [facility] Medical Records Department [address] [place] [address] Instructions for Home/Discharge Instructions 01/31/25 0935 MR#: [id number] Acct: [id number] Name: ALMA XIONG Rep #:[id number] : 1950 74 From: Ty REECE PAClaraC PCP: Dr. Steve Alexandre MD Status:A DM RANDOLPH Discharge Instructions Diet Discharge Diet: No restrictions DC O2, CPAP, BIPAP needs Home O2 Discharge instructions: No Dressing / Incision Discharge Activity: May Not Drive (No driving for 6 weeks postoperatively. Mustalso be off all narcotics and able to walk 100 feet without the use of cane or walker.) May shower in (days): 1 (Please turn dressing away from water. Okay to get wet as long as dressing is intact to skin.) Ice area for (Minutes): 20 (Every 1-2 hours while awake. Please place barrier between the skin and ice pack.) Weight Bearing Status: Weight bearing as tolerated Keep extremity elevated above heart level: Operative Extremity Dressing / Incision Call your doctor if your incision/area has: Continuous Slow Oozing, Sudden Increased Bleeding, Increased Pain/ Swelling, Increased Redness and Foul Smelling Discharge Call your doctor if you observe: Fever of 101 or Higher, Coldness, Increased Pain, Numbness or Tingling, Change in Color, Shortness of breath, Chest pain, Calf discomfort and Uncontrolled pain Remove Dressing in: 4 days (Okay to remove dressing on February 04, 2025) Additional Dressing/Incision Instructions:: Follow [facility] Post-op Instructions. Recommend getting up every hour while awake and walking for several minutes. If no bowel movement by February 02, 2025, we recommend you add in MiraLAX. If you do not have any bowelmovement by Wednesday contact our office. Once postoperative dressing has been removed only use gentle soap and water overthe incision. Do not use any ointments, Neosporin, salves, alcohol pads over the incision for 6 weeks postoperatively. Do not submerge underwater for 6 weeks postoperatively. Continue with AMMON hose/elastic stockings for 2 weeks postoperatively. May remove at nighttime but needs to be placed back on the leg during the day. Do NOT use alcohol with narcotic pain medication. Do NOT make important decisions while taking narcotic medication. If you have problems with taking your medication (rash, itching, nausea, etc.) call the office at once. Follow Up Care Test Results: Test results from this visit will be discussed in further detail at your follow- up appointment, if applicable. Discharge Plan Admission Admit Date/Time: 01/30/25 15:14 Attending Provider: Richmond Ricardo Primary Care Provider: Steve Alexandre Consulting Providers: Tom Birmingham; Matt Yu; Matt Lema Discharge Orders/Prescriptions Prescriptions: New acetaminophen 500 mg Tablet 1,000 mg PO TID 14 Days Qty: 84 0RF Rx Instructions: Do not take more than 3000 mg Tylenol in a 24-hour period. aspirin 81 mg Tablet,Chewable 81 mg PO BIDCM 30 Days Qty: 60 0RF Rx Instructions: Take 81 mg aspirin twice daily for 4 weeks postoperatively for DVT prophylaxis. oxycodone 5 mg Tablet 5 - 10 mg PO Q4H PRN PRN (Reason: As Needed For Pain) 7 Days Qty: 52 0RF sennosides-docusate sodium [Stimulant Laxative Plus] 8.6-50 mg Tablet 2 tab PO BID 4 Days Qty: 16 0RF Rx Instructions: Take until first bowel movement, then as needed Continued albuterol sulfate 90 mcg/actuation HFA aerosol inhaler 2 puff inhalation Q4H PRN (Reason: shortness of breath or wheezing) Qty: 8.5 1RF Rx Instructions: administer with spacer fluticasone propionate 220 mcg/actuation HFA aerosol inhaler 2 puff inhalation BID Qty: 12 11RF omeprazole 40 mg capsule,delayed release(DR/EC) 40 mg PO BID Qty: 60 2RF alendronate 70 mg tablet 70 mg PO QWEEK Qty: 12 1RF paroxetine HCl 40 mg tablet 40 mg PO DAILY Qty: 90 1RF levothyroxine 150 mcg tablet 150 mcg PO DAILY Qty: 90 1RF Rx Instructions: Take extra 1/2 tablet (75 mcg) once per week amitriptyline 25 mg tablet 25 mg PO QHS Qty: 90 1RF indapamide 1.25 mg tablet 1.25 mg PO QAM Qty: 90 1RF cholecalciferol (vitamin D3) 1,250 mcg (50,000 unit) capsule 1,250 mcg PO GARZA Qty: 20 2RF atenolol 50 mg tablet 50 mg PO DAILY Qty: 90 1RF Rx Instructions: TAKE 1 TABLET BY MOUTH DAILY FOR BLOOD PRESSURE/HEART RATE Discontinued acetaminophen 500 mg Tablet 1,000 mg PO DAILY PRN (Reason: Pain) Referrals / Follow Up: Physical,Therapy [Other] - 02/05/25 11:00 am Steve Alexandre MD [Primary Care Provider] - Ty Maynard PA-C [Med Staff - [facility] Prof] - 02/12/25 10:45 am Disposition Disposition (needs filled in before D/C Order can be placed): Home, Self Care 01/31/25 0942Ray Aleyda REECE PA-C CC: Dr. Tom Birmingham DO; Dr. Steve Alexandre MD; Dr. Matt Yu MD; Dr. Matt Lema MD ~ Signed [facility]07-02-2025 Progress note [facility] Medical Records Department [address] [place] [address] Progress Note - Orthopedic 01/31/25 0931 MR#: [id number] Acct: [id number] Name: ALMA XIONG Rep #:[id number] : 1950 74 From: Ty REECE PA-C PCP: Dr. Steve Alexandre MD Status:A DM RANDOLPH Location: MS3 [id number] Subjective Subjective The patient was sitting in bedside chair upon examination. Patient denies any chest pain, shortnessof breath, dizziness, lightheadedness, nausea or vomiting,or calf pain. Pain is controlled on medications. No adverse overnight events. Patient has been up working with therapy already. She does havepain when she is up and moving. Pain has been tolerable. Plan is for patient to go home and she is ready for this today. Objective Data Objective Data Vital Signs: Vital Signs Temp Pulse Resp BP Pulse Ox O2 Del Method O2 Flow Rate 97.9 F 63 18 108/44 L 95 Room Air 2 01/31/25 08:14 01/31/25 08:14 01/31/25 08:14 01/31/25 08:14 01/31/25 08:14 01/31/25 08:14 01/31/25 00:56 Oxygen Flow Rate (L/min) 2 Oxygen Delivery Method Room Air Weight: 88 kg Body Mass Index (BMI) 33.1 Intake & Output: Intake and Output for Last 24 Hours 01/29/25 01/30/25 01/31/25 23:59 23:59 23:59 Intake Total 2566.67 / 2566.67 350 / 350 Output Total 200 / 200 Balance 2366.67 / 2366.67 350 / 350 Lab / Micro Data 01/31/25 05:40 01/31/25 05:40 Labs: Laboratory Results - last 24 hr 01/30/25 11:54: POC Glucose 89 01/31/25 05:40: WBC 12.5 H, RBC 4.39, Hgb 12.0, Hct 35.9 L, MCV 81.8, MCH 27.3, MCHC 33.4, RDW Std Deviation 40.9, RDW Coeff of Annie 13.8, Plt Count 207, MPV 11.2, Sodium 135, Potassium 4.2, Chloride 103, Carbon Dioxide 20.5 L, Anion Gap 12, BUN 17, Creatinine 0.92, Estim Creat Clear Calc 59.35, EstGFR (MDRD) Non- Af66, BUN/Creatinine Ratio 18.2, Glucose 174 H, Calcium 8.8 Radiography Diagnostic Testing: Radiology Impression Knee X-Ray 01/30/25 16:00 IMPRESSION: Overlying skin mario are seen. The patient is postoperative right total knee arthroplasty, with satisfactory alignment seen. No complication is noted. No fracture site is evident. Reading Location: [place] [address] Physical Exam Narrative Vital signs stable and afebrile. SCDs and AMMON hose are in place bilaterally Patient is able to plantarflex and dorsiflex actively. Sensation is intact to light touch to saphenous, sural, superficial and deep peroneal, and tibial distribution. Main Mepilex dressing is clean dry and intact. Minimal drainage over the distalpin site Negative Homans bilaterally, negative signs and symptoms of DVT. Const alert, oriented x3 and no apparent distress Assessment & Plan Assessment/Plan (1) Status post right knee replacement: PLAN: 1. S/P robotic assisted right total knee arthroplasty POD #1 2. Continue Pain Medications: Tylenol and oxycodone. Patient had some decreased kidney function with GFR less than 60. We are holding off of nonsteroidal anti- inflammatories. We discussed the postoperative pain block in great detail. I did advise her that most patients postoperative day 2 is most painful. We discussed maintaining appropriate and adequate pain control for best recovery. 3. DVT Prophylaxis: Take 81 mg aspirin twice daily for 4 weeks postoperatively for DVT prophylaxis.Patient denies past history of DVT or pulmonary embolism. Patient will continue with AMMON hose for 2weeks postoperatively 4. PT/OT: Weightbearing as tolerated with walker 5. H & H: 12.0/35.9, asymptomatic. Monitoring patient's hemoglobin and hematocrit with postoperative anemia without any intra operative complications. At this time no treatment is required. 6. Reactive leukocytosis: 12.5, Afebrile. Patient did receive Decadron intraoperatively. No clinical signs of infection. 7. Encouraged Incentive Spirometry 8. Patient is aware of postoperative constipation that can occur from 1-3 days postoperatively. Will continue with senna 2 tablets twice daily until first bowel movement. Patient was advised if not having a bowel movement after day 3 she is to contact orthopedics so appropriate change can be made. With our office closed due to the holiday on Wednesday I did advise her if she has not had abowel movement by Wednesday she will add in MiraLAX. If no further bowel movement by Wednesday she will contact our office. Patient voiced understanding. 9. Continue postoperative medical treatment per medicine 10. Disposition: Patient overall is doing very well this morning. Plan will befor discharge home today as long as patient's pain is adequately controlled, tolerates therapy, and remains medically stable. Patient would like her prescriptions E scribed to [facility] pharmacy. She has o utpatient physical therapy established for February 05, 2025 due to the holiday weekend. I did recommendshe work on the exercises twice daily up until her first PT appointment. She voiced understanding. She will follow-up per postoperative instructions. Patient will contact our office with any concernsor questions. We did discuss postoperative recovery in detail and all questionswere answered. I have reviewed the [place] Automated Rx Reporting System (OARRS) report for this patient for refill pattern and other prescriber involvement as part of the appropriate surveillance for the provision ofacute and chronic controlled medications. The report was requested and reviewed on the date of thisentry and was considered in the prescribing process. This dictation was created using voice recognition software. Phonetic and/or grammatical errors mayexist. 01/31/25 0935 Cosigner Signature (if applicable): CC: ~ Signed [facility]07-02-2025 Progress note [facility] Medical Records Department [address] [place] [address] Progress Note - Hospitalist 01/31/25 0724 MR#: [id number] Acct: [id number] Name: ALMA XIONG Rep #:[id number] : 1950 74 From: [place] Ricardo MD PCP: Dr. Steve Alexandre MD Status:A DM RANDOLPH Location: [place] [address] Reason for Visit Reason for Visit: Diagnoses Presence of right artificial knee joint (01/30/25) Subjective Subjective Patient is a 74-year-old lady who underwent an elective right knee replacement On 01/30/[address] Lema hospitalist service was consulted to assist with management of patient medical comorbidities Objective Data Objective Data Vital Signs: Vital Signs Temp Pulse Resp BP Pulse Ox O2 Del Method O2 Flow Rate 97.6 F L 59 L 16 110/47 L 100 Room Air 2 01/31/25 04:56 01/31/25 07:06 01/31/25 07:06 01/31/25 04:56 01/31/25 07:06 01/31/25 07:06 01/31/25 00:56 Oxygen Flow Rate (L/min) 2 Oxygen Delivery Method Room Air Weight: 88 kg Body Mass Index (BMI) 33.1 Intake & Output: Intake and Output for Last 24 Hours 01/29/25 01/30/25 01/31/25 23:59 23:59 23:59 Intake Total 2566.67 / 2566.67 Output Total 200 / 200 Balance 2366.67 / 2366.67 Lab / Micro Data 01/31/25 05:40 01/31/25 05:40 Labs: Laboratory Results - last 24 hr 01/30/25 11:54: POC Glucose 89 01/31/25 05:40: WBC 12.5 H, RBC 4.39, Hgb 12.0, Hct 35.9 L, MCV 81.8, MCH 27.3, MCHC 33.4, RDW Std Deviation 40.9, RDW Coeff of Annie 13.8, Plt Count 207, MPV 11.2 Radiography Diagnostic Testing: Radiology Impression Knee X-Ray 01/30/25 16:00 IMPRESSION: Overlying skin mario are seen. The patient is postoperative right total knee arthroplasty, with satisfactory alignment seen. No complication is noted. No fracture site is evident. Reading Location: [place] [address] Physical Exam Narrative GENERAL: cooperative HEENT: Atraumatic; normocephalic EYES; Anicteric, Normal Conjunctiva NECK; supple, normal thyroid, RESPIRATORY: Diminished to auscultation CARDIOVASCULAR: Regular S1 S2, GI: soft, normoactive bowel sounds, : No Renal angle tenderness; EXTREMITIES: No edema, no clubbing, MUSCULOSKELETAL: Right knee in surgical dressing NEURO: Awake; no lateralizing signs. SKIN: No Rash PSYCH; Flat affect Assessment & Plan Assessment/Plan (1) Status post right knee replacement: PLAN: Plan Patient is a 74-year-old lady who underwent an elective right knee replacement On 01/30/[address] Lema hospitalist service was consulted to assist with management of patient medical comorbidities 1. Right knee osteoarthritis ? Orthopedic surgery primary. S/p right robotic assisted total knee arthroplasty with Dr. Lema on01/30. Tolerated procedure well, no intraoperative complications noted. Pain control, DVT prophylaxisand further postoperative care per orthopedics. Follow-up a.m. CBC and BMP. PT/OT/case management consulted. ? 01/31/2025; patient postoperative. So far uneventful except for relatively low blood 2. Hypertension ? 02/01/2020 held patient blood pressure medications this a.m. given low blood pressure 3. Anxiety/depression ? Continue home paroxetine and amitriptyline at night. 4. Hypothyroidism ? Continue home Synthroid. 5. GERD ? Continue home PPI. DVT prophylaxis: ? As per primary service?aspirin Time spent in the patient's overall evaluation,decision-making process, review of diagnostic data, adjustment of management, discussion with other providers, nursing nursing and ancillary staff involved in patient's care documentation, 35minutes Charges/Coding Visit Charges Inpatient E&M: 83659 Subs Hosp L2 01/31/25 0910 Cosigner Signature (if applicable): CC: ~ Signed [facility]07-01-2025 Consult note Author Tom Birmingham [facility] Note Date/Time January 30, 2025 6:35p m [facility] Medical Records Department [address] [place] [address] Consultation - Hospitalist 01/30/25 1713 MR#: [id number] Acct: [id number] Name: ALMA XIONG Rep #:[id number] : 1950 74 From: Tom mayo DO PCP: Dr. Steve Alexandre MD Status:A DM RANDOLPH Location: [place] [address] Assessment & Plan Assessment/Plan (1) Status post right knee replacement: PLAN: Plan Patient is a 74-year-old female who presented [facility] on 01/30/2025 for planned right knee replacement. Medicine consulted postoperativelyfor medical management. 1. Right knee osteoarthritis ? Orthopedic surgery primary. S/p right robotic assisted total knee arthroplasty with Dr. Lema on 01/30. Tolerated procedure well, no intraoperative complications noted. Pain control, DVT prophylaxis and further postoperative care per orthopedics. Follow-up a.m. CBC and BMP. PT/OT/case management consulted. 2. Hypertension ? Normotensive postoperatively. Okay to resume home atenolol and indapamide with hold parameters. 3. Anxiety/depression ? Continue home paroxetine and amitriptyline at night. 4. Hypothyroidism ? Continue home Synthroid. 5. GERD ? Continue home PPI. DVT prophylaxis: Baby aspirin twice daily per orthopedics Total clinical time spent by myself addressing the patient's medical issues, reviewing all the data, and collaborating with patient's care team: 35 minutes. HPI Consult Data Date of Consult: 01/30/25 HPI Narrative Reason for Consultation: Postoperative medical management HPI Narrative: ALMA XIONG, is a 74 F who presented to [facility] on 01/30/2025 for planned right knee replacement. Medicine consulted postoperativelyfor medical management. Patient had right knee minimally invasive robotic assisted total arthroplasty done with Dr. Lmea today. Tolerated procedure well, no intraoperative complications noted. I saw the patient at bedside this evening, 2 other family members present. Patient was sitting back comfortably in bed, conversing normally, in no acute distress. She denied any knee pain currently. Denied any other acute concerns at this time. [facility] Medical History Dietary restriction Burning with urination Elevated liver [...] breast cancer Depression Hypothyroidism HTN (hypertension), benign Home Medications ?Medication ?Instructions ?Recorded ?Last Taken ?Type acetaminophen 500 mg tablet 1,000 mg PO DAILY PRN Pain 09/14/22 Unknown History omeprazole 40 mg capsule,delayed 40 mg PO BID gerd #60 caps 05/10/24 01/29/25 Rx release alendronate 70 mg tablet 70 mg PO QWEEK #12 TABLETS 1 Unknown Rx albuterol sulfate 90 mcg/actuation 2 puff inhalation Q 4H PRN 08/23/24 Unknown Rx aerosol inhaler shortness of breath or wheez ing #8.5 grams paroxetine HCl 40 mg tablet 40 mg PO DAILY #90 tabs 01/30/25 09:30 Rx levothyroxine 150 mcg tablet 150 mcg PO DAILY #90 tabs 10/05/24 01/30/25 08:26 Rx amitriptyline 25 mg tablet 25 mg PO QHS #90 tabs 10/2301/28/25 Rx indapamide 1.25 mg tablet 1.25 mg PO QAM htn #90 tabs 12/06/24 01/30/25 09:30 Rx atenolol 50 mg tablet 50 mg PO DAILY #90 tabs 12/0101/30/25 09:30 Rx cholecalciferol (vitamin D3) 1,250 1,250 mcg PO GARZA #20 caps 12/28/24 01/28/25 Rx mcg (50,000 unit) capsule fluticasone propionate 220 2 puff inhalation BID #12 g kari 01/17/25 Unknown Rx mcg/actuation HFA aerosol inhaler Allergy/AdvReac Type Severity Reaction Status Date / Time ciprofloxacin (From Cipro) Allergy Intermediate hives Verified 01/17/25 09:19 milk (dairy) Allergy Food Verified 01/17/25 09:19 Allergy Family History Mother Breast cancer Father Cancer Bone and Bladder CA Alcoholism Grandmother Heart disease CVA (cerebral vascular accident) Sister Heart disease Cancer lung COPD (chronic obstructive pulmonary disease) Multiple sclerosis Brother Alcoholism Other Hypertension Surgical History History of lumpectomy of left breast History of laryngoscopy History of esophagogastroduodenoscopy (EGD) History of cardiac catheterization Hx of cholecystectomy Status post breast lumpectomy History of arthroscopic knee surgery History of fusion of cervical spine History of Social History Smoking Status: Former smoker quit date: 08/02/77 Tobacco: How many years used: 5 second hand exposure: No alcohol intake: current alcohol intake frequency: a few times a month substance use type: does not use what type of physical activity do you participate in: none ROS Constitutional Constitutional: Denies chills, fatigue, fever(s) or weakness Cardiovascular Cardiovascular: Denies chest pain Respiratory/Chest Respiratory/Chest: Denies shortness of breath at rest Gastrointestinal Gastrointestinal: Denies abdominal pain Musculoskeletal Musculoskeletal: Denies arthralgias, joint pain or myalgias Physical Exam Const alert, oriented x3 and no apparent distress Constitutional Narrative: Elderly female, class I obesity, good energy level, sitting back comfortably in bed, conversing normally, no acute distress. General Appearance: cooperative and comfortable HEENT normocephalic, head/scalp atraumatic, hearing grossly normal bilaterally, nasal mucous membranes and turbinates normal and moist oral mucous membranes Eyes PERRL, EOMs intact bilaterally and conjunctivae normal Neck full ROM Chest inspection of chest normal Resp normal respiratory effort, normal air movement, no use of accessory muscles and clear to auscultation bilaterally Cardio regular rate, regular rhythm, no murmurs and peripheral pulses 2+ throughout GI normal to inspection, nondistended, normoactive bowel sounds, soft to palpation,non-tender and non-distended Back/Spine normal ROM Extremity Extremity Narrative: Right knee with dressing and ice pack in place. Skin no rashes or lesions noted Psych mental status grossly normal Lab / Micro Data Labs: Laboratory Results - last 24 hr 01/30/25 11:54: POC Glucose 89 Imaging Radiology Impression Knee X-Ray 01/30/25 16:00 IMPRESSION: Overlying skin mario are seen. The patient is postoperative right total knee arthroplasty, with satisfactory alignment seen. No complication is noted. No fracture site is evident. Reading Location: [place] [address] Charges/Coding Visit Charges Inpatient E&M: 41549 Subs Hosp L2 01/30/25 1835 <Electronically signed by Tom Birmingham DO> Cosigner Signature (if applicable): CC: Dr. Steve Alexandre MD; Dr. Matt Lema MD~ Signed [facility] Work Phone: 1(525) 924-727807-01-2025 Consult note Author Lior Reynaga [facility] Note Date/Time January 31, 2025 2:25p m [facility] Medical Records Department [address] [place] [address] Anesthesia Postop Eval II 01/30/25 1818 MR#: [id number] Acct: [id number] Name: TYRESEALMA DANNIE Rep #:[id number] : 1950 74 From: Lior Reynaga MD PCP: Dr. Steve Alexandre MD Status:A DM RANDOLPH Y Race: C Location: [place] [id number] -1 Anesthesia Postop Eval I Sum Postop Eval Completion status Anesthesia document: Postop Eval 1 completed: Yes Anesthesia Postop Eval I Summary Anesthesia Postop Eval I Summary: Anesthesia Postop Eval I: Assessment Summary Airway patent Yes 01/30/25 16:05 DETAIL [email or web address] Spontaneous unlabored Yes 01/30/25 16:05 DETAIL [email or web address] respirations Mental status Awake 01/30/25 16:05 DETAIL [email or web address] nausea No 01/30/25 16:05 DETAIL [email or web address] Vomiting No 01/30/25 16:05 DETAIL [email or web address] Anesthesia Postop Eval I: Fluid Summary Crystalloid volume administer 2,000 01/30/25 16:05 DETAIL [email or web address] (ml) Colloids volume administered ( ml) Blood Product volume administered (ml) Total IV fluid infused 2,000 01/30/25 16:05 DETAIL [email or web address] Anesthesia Postop Eval I: Summary Notes Anesthesia Complication No 01/30/25 16:05 DETAIL [email or web address] Anesthesia Complication Comment: Post-operative progress note Anesthesia: Postop Eval II Evaluation Mental status: Awake and Calm Pain Level: 5 nausea: No Vomiting: No Complications Anesthesia Complication: No 01/30/25 3128 <Electronically signed by Lior Russell D> Date _ Lior Reynaga MD Cosigner Signature: Date CC: ~ Signed [facility] Work Phone: 1(221) 142-358407-01-2025 Consult note [facility] Medical Records Department [address] [place] [id number] Consultation - Hospitalist 01/30/25 1713 MR#: [id number] Acct: [id number] Name: ALMA XIONG Rep #:[id number] : 1950 74 From: Tom mayo DO PCP: Dr. Steve Alexandre MD Status:A DM RANDOLPH Location: [place] [id number] Assessment & Plan Assessment/Plan (1) Status post right knee replacement: PLAN: Plan Patient is a 74-year-old female who presented [facility] on 01/30/2025 for planned right knee replacement. Medicine consulted postoperativelyfor medical management. 1. Right knee osteoarthritis ? Orthopedic surgery primary. S/p right robotic assisted total knee arthroplasty with Dr. Lema on01/30. Tolerated procedure well, no intraoperative complications noted. Pain control, DVT prophylaxisand further postoperative care per orthopedics. Follow-up a.m. CBC and BMP. PT/OT/case management consulted. 2. Hypertension ? Normotensive postoperatively. Okay to resume home atenolol and indapamide with hold parameters. 3. Anxiety/depression ? Continue home paroxetine and amitriptyline at night. 4. Hypothyroidism ? Continue home Synthroid. 5. GERD ? Continue home PPI. DVT prophylaxis: Baby aspirin twice daily per orthopedics Total clinical time spent by myself addressing the patient's medical issues, reviewing all the data, and collaborating with patient's care team: 35 minutes. HPI Consult Data Date of Consult: 01/30/25 HPI Narrative Reason for Consultation: Postoperative medical management HPI Narrative: ALMA XIONG, is a 74 F who presented to [facility] on 01/30/2025 for planned rightknee replacement. Medicine consulted postoperativelyfor medical management. Patient had right knee minimally invasive robotic assisted total arthroplasty done with Dr. eLma today. Tolerated procedure well, no intraoperative complications noted. I saw the patient at bedside this evening, 2 other family members present. Patient was sitting back comfortably in bed, conversing normally, in no acutedistress. She denied any knee pain currently. Denied any other acute concerns at this time. [facility] Medical History Dietary restriction Burning with urination Elevated liver [...] breast cancer Depression Hypothyroidism HTN (hypertension), benign Home Medications ?Medication ?Instructions ?Recorded ?Last Taken ?Type acetaminophen 500 mg tablet 1,000 mg PO DAILY PRN Pain 09/14/22 Unknown History omeprazole 40 mg capsule,delayed 40 mg PO BID gerd #60 caps 05/10/24 01/29/25 Rx release alendronate 70 mg tablet 70 mg PO QWEEK #12 TABLETS 1 Unknown Rx albuterol sulfate 90 mcg/actuation 2 puff inhalation Q 4H PRN 08/23/24 Unknown Rx aerosol inhaler shortness of breath or wheez ing #8.5 grams paroxetine HCl 40 mg tablet 40 mg PO DAILY #90 tabs 01/30/25 09:30 Rx levothyroxine 150 mcg tablet 150 mcg PO DAILY #90 tabs 10/05/24 01/30/25 08:26 Rx amitriptyline 25 mg tablet 25 mg PO QHS #90 tabs 10/2301/28/25 Rx indapamide 1.25 mg tablet 1.25 mg PO QAM htn #90 tabs 12/06/24 01/30/25 09:30 Rx atenolol 50 mg tablet 50 mg PO DAILY #90 tabs 12/0101/30/25 09:30 Rx cholecalciferol (vitamin D3) 1,250 1,250 mcg PO GARZA #20 caps 12/28/24 01/28/25 Rx mcg (50,000 unit) capsule fluticasone propionate 220 2 puff inhalation BID #12 g kari 01/17/25 Unknown Rx mcg/actuation HFA aerosol inhaler Allergy/AdvReac Type Severity Reaction Status Date / Time ciprofloxacin (From Cipro) Allergy Intermediate hives Verified 01/17/25 09:19 milk (dairy) Allergy Food Verified 01/17/25 09:19 Allergy Family History Mother Breast cancer Father Cancer Bone and Bladder CA Alcoholism Grandmother Heart disease CVA (cerebral vascular accident) Sister Heart disease Cancer lung COPD (chronic obstructive pulmonary disease) Multiple sclerosis Brother Alcoholism Other Hypertension Surgical History History of lumpectomy of left breast History of laryngoscopy History of esophagogastroduodenoscopy (EGD) History of cardiac catheterization Hx of cholecystectomy Status post breast lumpectomy History of arthroscopic knee surgery History of fusion of cervical spine History of Social History Smoking Status: Former smoker quit date: 08/02/77 Tobacco: How many years used: 5 second hand exposure: No alcohol intake: current alcohol intake frequency: a few times a month substance use type: does not use what type of physical activity do you participate in: none ROS Constitutional Constitutional: Denies chills, fatigue, fever(s) or weakness Cardiovascular Cardiovascular: Denies chest pain Respiratory/Chest Respiratory/Chest: Denies shortness of breath at rest Gastrointestinal Gastrointestinal: Denies abdominal pain Musculoskeletal Musculoskeletal: Denies arthralgias, joint pain or myalgias Physical Exam Const alert, oriented x3 and no apparent distress Constitutional Narrative: Elderly female, class I obesity, good energy level, sitting back comfortably in bed, conversing normally, no acute distress. General Appearance: cooperative and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 Orders/Prescriptions Prescriptions: No Action cholecalciferol (vitamin [...] Steve Alexandre MD; Dr. Liam Engle MD [facility] Instructions* Patient Instructions* Panda Mcguire II, OD [...] of its relevant components. [facility]24 NoteHNO ID: [id number] Author: PANDA MCGUIRE II, OD Service: ? Author Type: AS400 CONSULTANT Type: Progress Notes Filed: 06/21/2024 14:27 Note [...] and agree with all of its relevant components.[facility]11-20-2024 History of Present illness Narrative* Panda [...] of its relevant components. documented in this encounterProm[facility]10-03-2024 [facility] Medical Records Department [address] [place], [place] [address] [address] History Physical Exam 05/04/24 1039 MR#: [id number] Acct: [id number] Name: ALMA XIONG Rep #: [id number] : 1950 74 From: Franco Friend PCP: Dr. Steve Alexandre MD Status:[facility] Location: [place] [address] History and Physical Date of Admission: 05/04/24 ALMA XIONG, is a 74 F who presents to the office today for establishment with [facility]. She has a hx of esophageal stricture, [...] Appearance: average body habitus and well nourished [facility] Head: normal to inspection Ears: hearing [...] (if applicable): CC: Dr. Steve Alexandre MD; Franco Tam, [facility]02-14-[address] Yepez [facility] September 15, 2022 11:11am Note Date/Time September 15, 2022 11:11am [facility] Medical Records Department [address] [place] [address] Discharge Summary 09/15/22 1107 MR#: [id number] Acct: [id number] Name: ALMA XIONG Rep #:[id number] : 1950 72 From: Abraham Davenport PCP: Dr. Steve Alexandre MD Status:[facility] Location: [place] [id number] Providers Date of Admission: 09/14/22 Date of [...] % (Auto) 55.0, Lymph % (Auto) 32.1, Whiteside % (Auto) 8.3, Eos % (Auto) 3.8, [...] Signed: Octavio Aviles MD at 11:56 EST , Head/Neck CTA 09/14/22 10:19 IMPRESSION: Minimal [...] Octavio Aviles MD at 11:05 EST , Brain MRI 09/14/22 18:35 IMPRESSION: No [...] Self Care Charges/Coding Visit Charges Inpatient E&M: 05182 Disch Hosp >30min 09/15/22 1111 <Electronically signed by Abraham Yepez MD> Cosigner Signature (if applicable): CC: Dr. Steve Alexandre MD; Dr. Abraham Yepez MD~ Signed [facility] Work Phone: 1(817) 569-825702-14-[address] Yepez [facility] September 15, 2022 11:06am Note Date/Time September 15, 2022 11:03am [facility] Medical Records Department [address] [place] [place] [address] Instructions for Home/Discharge Instructions 09/15/22 1001 MR#: [id number] Acct: [id number] Name: ALMA XIONG Rep #:[id number] : [...] CC: Dr. Steve Alexandre MD ~ Signed [facility] Work Phone: 1(180) 402-458402-13-[address] Alberts [facility] September 14, 2022 4:13pm Note Date/Time September 14, 2022 10:24am [facility] Medical Records Department [address] [place] [id number] Emergency Department Summary 09/14/22 MR#: [id number] Acct: [id number] Name: ALMA XIONG Rep #:[id number] : 1950 72 From: Km Alebrts DO PCP: Dr. Steve Alexandre MD Status:A DM RANDOLPH Location: [place] [address] HPI History of Present Illness Chief Complaint: [...] % (Auto) 53.3 Lymph % (Auto) 33.1 Whiteside % (Auto) 6.8 Eos % (Auto) 5.8 [...] bundle branch block Disposition Disposition: Acute Care [facility] What to do if you have Problems For any increased pain, shortness of breath, bleeding, nausea or vomiting, chestpain, or any unexpected problems, contact your Primary Care Provider. Call [facility] ([phone]) or report to the closest Emergency Room. Call 911 if necessary. 09/14/22 1613 <Electronically signed by Km Alberts DO> Cosigner Signature (if applicable): CC: Dr. Steve Alexandre MD ~ Signed [facility] Work Phone: 1(255) 258-825702-13-2023 History and physical note Author Dr. Yepez [facility] September 14, 2022 3:44pm Note Date/Time September 14, 2022 11:38am [facility] Medical Records Department [address] [place] [id number] H&P Exam - Hospitalist 09/14/22 1137 MR#: [id number] Acct: [id number] Name: ALMA XIONG Rep #:[id number] : 1950 72 From: Abraham Dvaenport PCP: Dr. Steve Alexandre MD Status:A DM RANDOLPH Location: [place] [address] HPI - General General Date of Admission: [...] the patient. LKW last night. Recommended admission. [facility] Medical History (Updated 09/14/22 @ 11:17 by [...] nerves II-XII grossly intact, DTR 2+/4, heel gibosn and finger-nose test normal. NIH stroke scale [...] % (Auto) 53.3, Lymph % (Auto) 33.1, Whiteside % (Auto) 6.8, Eos % (Auto) 5.8 [...] shock if needed Total time spent in [id number] encounter in discussion of advanced directive 16 minutes. Charges/Coding Visit Charges Inpatient E&M: 12933 Init Hosp L3 Procedures Hospitalists Procedures: 64485 Advncd Care Plan 30 Min 09/14/22 1544 <Electronically signed by Abraham Yepez MD> Cosigner Signature (if applicable): CC: Dr. Steve Alexandre MD; Dr. Abraham Yepez MD~ Signed [facility] Work Phone: Evaluation note* Diagnosis Onset Date Resolution Status Anxiety and depression chron ic GERD (gastroesophageal reflux disease) chronic HTN (hypertension), benign c hronic Occipital neuralgia chronic Chronic neck pain chronic GERD (gastroesophageal reflux disease) chronic HTN (hypertension), benign c hronic Occipital neuralgia chronic Paresthesias noneactive Dysuria noneactive [facility] Work Phone: Evaluation note* Diagnosis Onset Date Resolution Status Chronic neck pain chronic GERD (gastroesophageal reflux disease) chronic HTN (hypertension), benign c hronic Occipital neuralgia chronic Paresthesias noneactive Dysuria noneactive Anxiety and depression chron ic Chronic neck pain chronic HTN (hypertension), benign c hronic Hypothyroidism chronic Lumbar radiculopathy chronic Osteopenia chronic [facility] Work Phone: Evaluation note* Diagnosis Onset Date Resolution Status Paresthesias noneactive Dysuria noneactive Anxiety and depression chron ic Chronic neck pain chronic HTN (hypertension), benign c hronic Hypothyroidism chronic Lumbar radiculopathy chronic Osteopenia chronic [facility] Work Phone: Evaluation note* Diagnosis Onset Date Resolution Status Anxiety and depression chron ic Chronic neck pain chronic HTN (hypertension), benign c hronic Hypothyroidism chronic Lumbar radiculopathy chronic Osteopenia chronic Dizziness acute Dysequilibrium acute History of hypertension acut e Right bundle branch block ac [place] [facility] Work Phone: Evaluation note* Diagnosis Onset Date Resolution Status Anxiety and depression chron ic Eosinophilic esophagitis chr onic Esophageal stricture chronic HTN (hypertension), benign c hronic [facility] Work Phone: Evaluation note* Diagnosis Onset Date Resolution Status Anxiety and depression chron ic Esophageal stricture chronic GERD (gastroesophageal reflux disease) chronic Osteopenia chronic Vertigo chronic [facility] Work Phone: Evaluation note* Diagnosis Regular astigmatism, bilateral- Primary Hyperopia, bilateral Presbyopia Combined forms of age-related cataract of both eyes Other and combined forms of senile cataract 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 Vitreous floaters of both eyes documented in this encounter [facility] for referral (narrative)No reason for referral information availableWCrystal [facility] Work Phone: Summary Purpose Family History No Family History Records Found Relationship Condition Age at Onset Recorded Date/T nathaniel Not Specified Hypertension Unknown mother Malignant neoplasm of breast Unknown father Malignant neoplasm Unknown Alcoholism Unknown grandmother Cardiac disease Unknown Cerebrovascular accident (CVA) Unknown sister Cardiac disease Unknown Malignant neoplasm Unknown Chronic obstructive pulmonary disease Unk nown Multiple sclerosis Unknown brother Alcoholism Unknown Advance Directives No Advanced Directives Records Found Advance Directive Response Recorded Date/ Time Living Will No September 05 12:11pm Power of It Infrastructure Engineer No September 05, 2019 12:11pm Advance Directive Response Recorded Date/ Time Living Will No September 05 11:11am Power of It Infrastructure Engineer No September 05, 2019 11:11am Advance Directive Response Recorded Date/ Time Living Will No September 14, 2 023 10:12am Power of It Infrastructure Engineer No September 14, 2022 10:12am Advance Directive Response Recorded Date/ Time Living Will No September 14, 2 023 12:29pm Power of It Infrastructure Engineer No September 14, 2022 12:29pm Advance Directive Response Recorded Date/ Time Living Will No September 14, 2 023 1:29pm Power of It Infrastructure Engineer No September 14, 2022 1:29pm Advance Directive Response Recorded Date/ Time Living Will No September 14 2 023 1:29pm Do you have a Healthcare Power of It Infrastructure Engineer? No September 14, 2022 1:29pm Living Will No August 04 10:56am Do you have a Healthcare Power of It Infrastructure Engineer? No August 04, 2024 10:56am Advance Directive Response Recorded Date/ Time Living Will No September 14 2 023 1:29pm Do you have a Healthcare Power of It Infrastructure Engineer? No September 14, 2022 1:29pm Advance Directive Response Recorded Date/ Time Do you have a Healthcare Power of It Infrastructure Engineer? No January 30, 2025 5:49pm Chief Complaint and Reason for Visit Chief [...] Thoracic radiculopathy December 15, 2024 10 :28am Chief Complaint Admit Date R06.02 - Shortness [...] ACUTE SURGICAL CLEARANCE January 10, 2025 12:42pm Surgery Clearance January 17, 2025 9:16 am Reason for Visit Admit Date T12 compression [...] Thoracic radiculopathy December 15, 2024 10 :28am Shortness of breath January 17, 2025 9:16 am Reason for Visit Admit Date T12 compression [...] Thoracic radiculopathy December 15, 2024 10 :28am Cough January 17, 2025 9:16 am Shortness of breath January 17, 2025 9:16 am Chief Complaint Admit Date 3 M FU November 03, 2024 1:08 pm 6 WK F/U November 15, 2024 3:0 4pm fOLLOW UP November 21, 2024 2:0 4pm INT LAB ORDERS November 21, 2024 2:1 9pm Pain November 27, 2024 7:3 0am E-ORDER December 05, 2024 8:44am THORACIC SPINE December 15, 2024 10:28 am R06.02 - Shortness of breath January 10, 2025 10:39am R06.02 - Shortness of breath January 10, 2025 10:49am ACUTE SURGICAL CLEARANCE January 10, 2025 12:42pm Surgery Clearance January 17, 2025 9:16 am ERAS, Total Knee Replacement Robotic Arm Assist January 30, 2025 3:14pm ERAS, Total Knee Replacement Robotic Arm Assist January 30, 2025 5:13pm ERAS, Total Knee Replacement Robotic Arm Assist January 31, 2025 7:24am Reason for Visit Admit Date Anxiety and depression November 03, 2024 1 [...] Thoracic radiculopathy December 15, 2024 10 :28am Pre-op evaluation January 10, 2025 12:4 2pm Cough January 17, 2025 9:16 am Shortness of breath January 17, 2025 9:16 am Status post right knee replacement January 30, 2025 3:14pm Additional Source Comments INFORMATION SOURCE (unrecogn ized section and content) DATE CREATED AUTHOR 02/24/2018 [facility] DATE CREATED AUTHOR AUTHOR'S ORGANIZ ATION 07/11/2018 [facility] DATE CREATED AUTHOR AUTHOR'S ORGANIZ ATION 07/11/2018 [facility] DATE CREATED AUTHOR AUTHOR'S ORGANIZ ATION 05/04/2023 [facility] DATE CREATED AUTHOR AUTHOR'S ORGANIZ ATION 12/12/2023 [facility] DATE CREATED AUTHOR AUTHOR'S ORGANIZ ATION 01/03/2025 Ricky Smith [facility] DATE CREATED AUTHOR AUTHOR'S ORGANIZ ATION 01/15/2025 [facility] DATE CREATED AUTHOR AUTHOR'S ORGANIZ ATION 03/03/2025 [facility] DATE CREATED AUTHOR AUTHOR'S ORGANIZ ATION 03/04/2025 [facility] Goals (unrecognized section and content) Goals [...] MD Admit Provider, Attending Provi norma Active Medical Anthropology Director Relationship Specialty Start Date End Date Steve Alexandre MD [facility] [place] [address] PCP - General Internal Medicine 05/12/23 Team [...] Start: September 25, 2024 Dr. Thai Hurst DO Attending Provider Active S tart: September 25, [...] January 10, 2025 End: January 10, 2025 Team Status: Inactive Member Role Status Dates Dr. Steve Alexandre MD Primary Care Provider Active Start: January 17, 2025 End: January 17, 2025 Dr. Steve Alexandre MD Referring Provider Active Start: January 17, 2025 End: January 17, 2025 KAE Wilson Attending Provider Active Start: January 17, 2025 End: January 17, 2025 Team Status: Inactive Member Role Status Dates Dr. Steve Alexandre MD Primary Care Provider Active Start: January 10, 2025 End: January 10, 2025 KAE Wilson Attending Provider Active Start: January 10, 2025 End: January 10, 2025 KAE Wilson Referring Provider Active Start: January 10, 2025 End: January 10, 2025 Team Status: Active Member Role/Relationship Status Dates Dr. Steve Alexandre MD Primary Care Provider Active Team Status: Inactive Member Role/Relationship Status Dates Dr. Steve Alexandre MD Primary Care Provider Active Start: November 03, 2024 End: November 03, 2024 Dr. Steve Alexandre MD Attending Provider Active Start: November 03, 2024 End: November 03, 2024 Dr. Steve Alexandre MD Referring Provider Active Start: November 03, 2024 End: November 03, 2024 Team Status: Inactive Member Role/Relationship Status Dates Dr. Steve Alexandre MD Primary Care Provider Active Start: November 03, 2024 End: November 03, 2024 Dr. Steve Alexandre MD Attending Provider Active Start: November 03, 2024 End: November 03, 2024 Dr. Steve Alexandre MD Referring Provider Active Start: November 03, 2024 End: November 03, 2024 Team Status: Inactive Member Role/Relationship Status Dates Dr. Steve Alexandre MD Primary Care Provider Active Start: November 15, 2024 End: November 15, 2024 Dr. Steve Alexandre MD Referring Provider Active Start: November 15, 2024 End: November 15, 2024 Dina M Rufener , BURNER OPERATOR-C Attending Provider Active Start: November 15, 2024 End: November 15, 2024 Team Status: Inactive Member Role/Relationship Status Dates Dr. Steve Alexandre MD Primary Care Provider Active Start: November 21, 2024 End: November 21, 2024 Dr. Steve Alexandre MD Referring Provider Active Start: November 21, 2024 End: November 21, 2024 CHEVY Bean Attending Provider Active Start: November 21, 2024 End: November 21, 2024 Team Status: Inactive Member Role/Relationship Status Dates Dr. Steve Alexandre MD Primary Care Provider Active Start: November 21, 2024 End: November 21, 2024 Dr. Steve Alexandre MD Attending Provider Active Start: November 21, 2024 End: November 21, 2024 Dr. Steve Alexandre MD Referring Provider Active Start: November 21, 2024 End: November 21, 2024 Team Status: Inactive Member Role/Relationship Status Dates Dr. Steve Alexandre MD Primary Care Provider Active Start: November 27, 2024 End: November 27, 2024 Dr. Yordan Shen MD Attending Provider Active Start: November 27, 2024 End: November 27, 2024 Dr. Yordan Shen MD Referring Provider Active Start: November 27, 2024 End: November 27, 2024 Team Status: Inactive Member Role/Relationship Status Dates Dr. Steve Alexandre MD Primary Care Provider Active Start: December 05, 2024 End: December 05, 2024 Dr. Steve Alexandre MD Attending Provider Active Start: December 05, 2024 End: December 05, 2024 Dr. Steve Alexandre MD Referring Provider Active Start: December 05, 2024 End: December 05, 2024 Team Status: Inactive Member Role/Relationship Status Dates Dr. Steve Alexandre MD Primary Care Provider Active Start: December 15, 2024 End: December 15, 2024 Dr. Steve Alexandre MD Referring Provider Active Start: December 15, 2024 End: December 15, 2024 Dr. Yordan Shen MD Attending Provider Active Start: December 15, 2024 End: December 15, 2024 Team Status: Inactive Member Role/Relationship Status Dates Dr. Steve Alexandre MD Primary Care Provider Active Start: January 10, 2025 End: January 10, 2025 KAE Wilson Attending Provider Active Start: January 10, 2025 End: January 10, 2025 KAE Wilson Referring Provider Active Start: January 10, 2025 End: January 10, 2025 Team Status: Active Member Role/Relationship Status Dates Dr. Steve Alexandre MD Primary Care Provider Active Start: January 10, 2025 Dr. Thai Hurst DO Attending Provider Active S tart: January 10, 2025 KAE Wilson Referring Provider Active Start: January 10, 2025 Team Status: Inactive Member Role/Relationship Status Dates Dr. Steve Alexandre MD Primary Care Provider Active Start: January 10, 2025 End: January 10, 2025 Dr. Steve Alexandre MD Referring Provider Active Start: January 10, 2025 End: January 10, 2025 Ricci REECE PA Attending Provider Active St art: January 10, 2025 End: January 10, 2025 Team Status: Inactive Member Role/Relationship Status Dates Dr. Steve Alexandre MD Primary Care Provider Active Start: January 17, 2025 End: January 17, 2025 Dr. Steve Alexandre MD Referring Provider Active Start: January 17, 2025 End: January 17, 2025 KAE Wilson Attending Provider Active Start: January 17, 2025 End: January 17, 2025 Team Status: Inactive Member Role/Relationship Status Dates Dr. Steve Alexandre MD Primary Care Provider Active Start: January 30, 2025 End: January 31, 2025 Dr. Matt Lema MD Admit Provider Active Sta rt: January 30, 2025 End: January 31, 2025 Dr. Matt Lema MD Referring Provider Active Start: January 30, 2025 End: January 31, 2025 Dr. Matt Lema MD Other Provider Active Sta rt: January 30, 2025 End: January 31, 2025 Dr. Tom Birmingham DO Other Provider Active Start: January 30, 2025 End: January 31, 2025 Dr. Matt Yu MD Other Provider Active Start: January 30, 2025 End: January 31, 2025 Dr. Richmond Ricardo MD Attending Provider Active Start: January 30, 2025 End: January 31, 2025 Team Status: Active Member Role/Relationship Status Dates Dr. Steve Alexandre MD Primary Care Provider Active Start: January 30, 2025 Dr. Matt Lema MD Admit Provider Active Sta rt: January 30, 2025 Dr. Matt Lema MD Referring Provider Active Start: January 30, 2025 Dr. Matt Lema MD Other Provider Active Sta rt: January 30, 2025 Dr. Tom Birmingham DO Attending Provider Active Start: January 30, 2025 Dr. Tom Birmingham DO Other Provider Active Start: January 30, 2025 Dr. Matt Yu MD Other Provider Active Start: January 30, 2025 Team Status: Active Member Role/Relationship Status Dates Dr. Steve Alexandre MD Primary Care Provider Active Start: January 31, 2025 Dr. Matt Lema MD Admit Provider Active Sta rt: January 31, 2025 Dr. Matt Lema MD Referring Provider Active Start: January 31, 2025 Dr. Matt Lema MD Other Provider Active Sta rt: January 31, 2025 Dr. Tom Birmingham DO Other Provider Active Start: January 31, 2025 Dr. Matt Yu MD Other Provider Active Start: January 31, 2025 Dr. Richmond Ricardo MD Attending Provider Active Start: January 31, 2025 Dr. Richmond Ricardo MD Other Provider Active Star t: January 31, 2025 Source Comments (unrecognize d section and content) In the event this informatio n is protected by the Federal Confidentiality of Alcohol and Drug Abuse Patient Records regulations: The Federal rules restrict any use of the information to criminally investigate or prosecute any alcohol or drug abuse patient.[facility] Reason for Visit (unrecogniz ed section [...] BE BASED ON THE PRIMARY CLINICAL RECORDS. [facility] [email or web address] [facility]. provides no warranty or guarantee of the accuracy or completeness of information in this document.
== END 2025-03-05 23:59 | disposition home or self-care (01) ==
LOC: LAB 15:52
PROVIDERS: PCP Internal Medicine; Referring Provider Physician Assistant Surgical; Visit Provider Physician Assistant Surgical
DX: Z00.00 Encounter for general adult medical examination without abnormal findings (principal)
CPT/HCPCS: 36415; 80048

== ENCOUNTER → 2025-03-05 | Outpatient (CLI) | payer MEDICARE, SELFPAY ==
--- NOTE | 2025-03-05 16:10 | CT_ITS ---
PROCEDURE: CHEST WITHOUT CONTRAST 03/05/2025 REASON FOR EXAM: GROUND GLASS OPACITIES, SHORTNESS OF BREATH TECHNIQUE: Chest CT without contrast. Coronal and Sagittal reconstruction series were provided. One or more dose reduction techniques were used (e.g., Automated exposure control, adjustment of the mA and/or kV according to patient size, use of iterative reconstruction technique RADIATION DOSE SUMMARY: CTDlvol: 9.85 mGy DLP: 298.26 mGycm COMPARISON: Prior study dated March 30, 2024. FINDINGS: Hardware: None Lymph nodes: Small benign-appearing bilateral axillary lymph nodes. Calcified left hilar lymph nodes. Heart and Vasculature: The heart is not enlarged. Coronary Artery Calcifications: No significant coronary artery calcification seen. Lungs and Airways: The lungs are clear. Pleura: No evidence of pleural effusion Upper Abdomen: Calcified splenic granulomas and hepatic granulomas. Bones: Degenerative changes of the thoracic spine. Stable compression of the T12 vertebrae. CT/Chest without Contrast IMPRESSION: Coronary artery calcification (CAC) is is absent The lungs are clear. Reading Location: [id number]
--- OUTSIDE RECORDS SUMMARY | 2025-03-05 22:50 | XMS RPT_ITS | CCD ---
Author Organization [facility] Care Team Providers Care Vice President Talent Management Name Role Phone MARLEY VASQUEZ F Unavailable [...] Dr. Newberry Referring Provider [phone] BALDOMERO, STEVE MOUNT AETNA Primary Care Unav RADHA Sutton Attending Unavailable Steve Alexandre MD Primary Care Provider [phone] Baldomero SAL, Dr. Newberry Primary Care Provider Dr. Liam Engle MD Attending Provider Dr. Liam Engle MD Referring Provider Baldomero SAL, Dr. Newberry Referring Provider [phone] Dr. Thai Hurst DO Attending Provider [phone] Thai Hurst DO Referring Provider Dr. [...] Provider Dr. Thai Hurst DO Attending Provider [phone] Baldomero SAL, Dr. Newberry Referring Provider Delvis BOTTLER HELPER-CDina Referring Provider Ricci Sellers Attending Provider BRITTANY ALEXANDREBE B Primary Care Unavailable PANDA MCGUIRE II Attending Unavailabl ivan Alexandre MD, Dr. Newberry Primary Care Provider Baldomero SAL, Dr. Newberry Referring Provider [phone] Dr. Yordan Shen MD Attending Provider Dr. Thai Hurst DO Attending Provider Rome SAL, Dr. Martel Admit Provider Rome SAL, Dr. Martel Referring Provider Rome SAL, Dr. Martel Other Provider [phone] Dr. Tom Birmingham DO Other Provider Aimee SAL, Dr. Matt Bruno Other Provider [phone] Dr. Richmond Ricardo MD Attending Provider Unavaila [...] Primary Care Unavailable Matt Yu Consulting Unavailable Rome Matt Consulting Unavailable Otilia Cameron Attending Unavailable [...] Ciprofloxacin; Translations: [CIPROFLOXACIN] Drug Allergy 1 Hives [facility] (1 source) dairy products Allergy to substance 2 Food Allergy [facility] Work Phone: (14 sources) cow milk allergenic extract Drug Allergy 2 Food Allergy [facility] (2 sources) Seasonal allergy; Translations: [SEASONAL ALLERGIES] Allergy to substance 5 Other: See Comments [facility] (1 source) Ciprofloxacin Drug Allergy 5 [facility] Repository (1 source) Milk Drug allergy (disorder) 5 [facility] Repository (1 source) ALLERGIES NOT ON FILE; Translations: [ALLERGIES NOT ON FILE] Propensity to adverse reactions (disorder) [facility] 2 Repository Medications Current Medications Medication Drug [...] MG PO DAILY September 14, 2022 1:00am [id number] 200 actuat albuterol 0.09 mg/actuat metered dose [...] the event of a Fluress shortage, administer [place]-Fluor 1 drop into both eyes as directed for applanation tonometry docusate sodium 50 mg / sennosides, penitentiary 8.6 mg oral tablet (1 source) Start: [...] Chronic Unclassified (1 source) New Patient / [id number]() Onset: 8 Unclassified (1 source) Cough, unspecified; [...] 01-31-2025 Anion gap [Moles/Vol] 12 mmol/L - [facility] BUN/creatinine ratioOrdered By: Matt Lema on 01-31-2025 Urea nitrogen/Creatinine [Mass ratio] 18.2 mg/mg - [facility] Basic Metabolic Profile (BMP )on 01-31-2025 BUN/CRE 18.2 RATIO Normal 10-20 [facility] Comment on above: Performed By: #### L 100.0500, L500.2500 #### [facility] [address] [place], [address] Calcium [Mass/Vol] 8.8 mg/dL Normal 7.6-11.0 [facility] Comment on above: Performed By: #### L 100.0500, L500.2500 #### [facility] [address] [place], [address] Chloride [Moles/Vol] 103 mmol/L Normal 98-108 [facility] Comment on above: Performed By: #### L 100.0500, L500.2500 #### [facility] [address] [place], [address] CO2 [Moles/Vol] 20.5 mmol/L Low 21.0-32.0 [facility] Comment on above: Performed By: #### L 100.0500, L500.2500 #### [facility] [address] [place], [address] Creatinine [Mass/Vol] 0.92 mg/dL Normal 0.70-1.20 [facility] Comment on above: Performed By: #### L 100.0500, L500.2500 #### [facility] [address] [place], [address] ECRCL 59.35 ml/min Normal 50-250 [facility] Comment on above: Performed By: #### L 100.0500, L500.2500 #### [facility] [address] [place], [address] GAP 12 Normal 5-15 [facility] Comment on above: Performed By: #### L 100.0500, L500.2500 #### [facility] [address] [place], [address] GFR/1.73 sq M.predicted among non-blacks MDRD (S/P/Bld) [Vol rate/Area] 66 mL/min/{1.73_m2} Normal >60 [facility] Comment on above: Result Comment: mL/m in/1.73m2 CKD-EPI Creatinine Equation (2020) Performed By: #### L 100.0500, L500.2500 #### [facility] [address] [place] [place], [address] Glucose [Mass/Vol] 174 mg/dL High 70-99 [facility] Comment on above: Performed By: #### L 100.0500, L500.2500 #### [facility] [address] [place], [address] Potassium [Moles/Vol] 4.2 mmol/L Normal 3.3-5.1 [facility] Comment on above: Result Comment: Hemo lysis present, Results??could be affected. ?? Performed By: #### L 100.0500, L500.2500 #### [facility] [address] [place] [place], [address] Sodium [Moles/Vol] 135 mmol/L Normal 133-145 [facility] Comment on above: Performed By: #### L 100.0500, L500.2500 #### [facility] [address] [place], [address] Urea nitrogen [Mass/Vol] 17 mg/dL Normal 4-19 [facility] Comment on above: Performed By: #### L 100.0500, L500.2500 #### [facility] [address] [place], [address] CBC-Complete Blood Cnt No Di ffon 01-31-2025 Erythrocyte distribution width (RBC) [Ratio] 13.8 % Normal 11.6-14.6 [facility] Comment on above: Performed By: #### L 100.0500, L500.2500 #### [facility] [address] [place], [address] Hematocrit (Bld) [Volume fraction] 35.9 % Low 37-47 [facility] Comment on above: Performed By: #### L 100.0500, L500.2500 #### [facility] [address] [place], [address] Hemoglobin (Bld) [Mass/Vol] 12.0 g/dL Normal 12.0-15.0 [facility] Comment on above: Performed By: #### L 100.0500, L500.2500 #### [facility] [address] [place], [address] MCH (RBC) [Entitic mass] 27.3 pg Normal 27.0-32.0 [facility] Comment on above: Performed By: #### L 100.0500, L500.2500 #### [facility] [address], [address] MCHC (RBC) [Mass/Vol] 33.4 g/dL Normal 32-36 [facility] Comment on above: Performed By: #### L 100.0500, L500.2500 #### [facility] [address], [address] MCV (RBC) [Entitic vol] 81.8 fL Normal 81-99 [facility] Comment on above: Performed By: #### L 100.0500, L500.2500 #### [facility] [address], [address] Platelet mean volume (Bld) [Entitic vol] 11.2 fL Normal 6.2-12.0 [facility] Comment on above: Performed By: #### L 100.0500, L500.2500 #### [facility] [address] [place], [address] Platelets (Bld) [#/Vol] 207 10*3/uL Normal 150-450 [facility] Comment on above: Performed By: #### L 100.0500, L500.2500 #### [facility] [address] [place], [address] RBC (Bld) [#/Vol] 4.39 10*6/uL Normal 4.2-5.4 [facility] Comment on above: Performed By: #### L 100.0500, L500.2500 #### [facility] [address] [place], [address] RDW SD 40.9 fl Normal 35.1-43.9 [facility] Comment on above: Performed By: #### L 100.0500, L500.2500 #### [facility] [address] [place], [address] WBC (Bld) [#/Vol] 12.5 10*3/uL High 4.4-11.0 [facility] Comment on above: Performed By: #### L 100.0500, L500.2500 #### [facility] [address] [place], [address] Carbon dioxide, total [Moles /volume] in Central venous bloodOrdered By: Matt Lema on 01-31-2025 CO2 [Moles/Vol] 20.5 mmol/L Low 21.0-32.0 [facility] Chloride assayOrdered By: St santiago Lema on 01-31-2025 Chloride [Moles/Vol] 103 mmol/L 98-108 [facility] Discharge Instructionon Discharge Instruction [facility] Medical Records Department [address] [place] [address] Instructions for Home/Discharge Instructions 01/31/25 0935 MR#: [id number] Acct: [id number] Name: ALMA XIONG Rep #: [id number] : 1950 74 From: Ty REECE PA-C [...] February 04, 2025) Additional Dressing/Incision Instructions:: Follow [place] [facility] Post-op Instructions. Recommend getting up every [...] - Ty Maynard PA-C [Med Staff - [facility] Practice Prof] - 02/12/25 10:45 am Disposition Disposition (needs filled in before D/C Order can be placed): Home, Self Care 01/31/25 0942 Ty REECE PA-C CC: Dr. Tom Birmingham DO; Dr. Steve Alexandre MD; Dr. Matt Yu MD; Dr. Matt Lema MD Sig (more content not included)... Normal [facility] Erythrocyte distribution wid th ratioOrdered By: Matt Lema on 01-31-2025 Erythrocyte distribution width (RBC) [Ratio] 13.8 % 11.6-14.6 [facility] Erythrocyte distribution wid th standard deviationOrdered By: Matt Lema on 01-31-2025 Erythrocyte distribution width (RBC) [Ratio] 40.9 fl 35.1-43.9 [facility] Glomerular filtration rate ( GFR) estimation/1.73 sq m using serum, plasma, or whole bOrdered By: Matt Lema on 01-31-2025 GFR/1.73 sq M.predicted among non-blacks MDRD (S/P/Bld) [Vol rate/Area] 66 mL/min/{1.73_m2} >60 [facility] Comment on above: mL/min/1.73m2 CKD-EP I Creatinine Equation (2020) Hematocrit Auto (Bld) [Volum e fraction]Ordered By: Matt Lema on 01-31-2025 Hematocrit (Bld) [Volume fraction] 35.9 % Low 37-47 [facility] Hemoglobin measurementOrdere d By: Matt Lema on 01-31-2025 Hemoglobin (Bld) [Mass/Vol] 12.0 g/dL 12.0-15.0 [facility] MCV (mean corpuscular volume ) determinationOrdered By: Matt Lema on 01-31-2025 MCV (RBC) [Entitic vol] 81.8 fL 81-99 [facility] Mean corpuscular hemoglobin (MCH) determinationOrdered By: Matt Lema on 01-31-2025 MCH (RBC) [Entitic mass] 27.3 pg 27.0-32.0 [facility] Mean corpuscular hemoglobin concentration (MCHC) determinationOrdered By: Matt Lema on 01-31-2025 MCHC (RBC) [Mass/Vol] 33.4 g/dL 32-36 [facility] Mean platelet volume determi nationOrdered By: Matt Lema on 01-31-2025 Platelet mean volume (Bld) [Entitic vol] 11.2 fL 6.2-12.0 [facility] Platelet countOrdered By: St santiago Lema on 01-31-2025 Platelets (Bld) [#/Vol] 207 10*3/uL 150-450 [facility] Potassium measurement (mass/ volume)Ordered By: Matt Lema on 01-31-2025 Potassium (Unsp spec) [Mass/Vol] 4.2 mmol/L 3.3-5.1 [facility] Comment on above: Hemolysis present, R esults could be affected. RBC Auto (Bld) [#/Vol]Ordere d By: Matt Lema on 01-31-2025 RBC (Bld) [#/Vol] 4.39 10*6/uL 4.2-5.4 [facility] Serum creatinine measurement (mass/volume)Ordered By: Matt Lema on 01-31-2025 Creatinine [Mass/Vol] 0.92 mg/dL 0.70-1.20 [facility] Serum glucose measurement (m ass/volume)Ordered By: Matt Lema on 01-31-2025 Glucose [Mass/Vol] 174 mg/dL High 70-99 [facility] Serum or plasma calcium nereida urement (mass/volume)Ordered By: Matt Lema on 01-31-2025 Calcium [Mass/Vol] 8.8 mg/dL 7.6-11.0 [facility] Serum or plasma urea nitroge n measurement (mass/volume)Ordered By: Matt Lema on 01-31-2025 Urea nitrogen [Mass/Vol] 17 mg/dL 4-19 [facility] Sodium levelOrdered By: Jorge A Lema on 01-31-2025 Sodium [Moles/Vol] 135 mmol/L 133-145 [facility] White blood cell (WBC) count Ordered By: Matt Lema on 01-31-2025 WBC (Bld) [#/Vol] 12.5 10*3/uL High 4.4-11.0 [facility] Bedside Glucoseon 01-30-2025 FINGERSTICK GLU 89 mg/dL Normal 74-106 [facility] Comment on above: Result Comment: SAMMY VILLAR OF PATIENT CARE PER NURSING PROTOCOL Performed By: #### L 501.080 #### [facility] [address] [place], [address] Consultation - [facility] 01-30-2025 Consultation - Hospitalist [facility] Medical Records Department [address] [place] [address] Consultation - Hospitalist 01/30/25 1713 MR#: [id number] Acct: [id number] Name: ALMA XIONG Rep #: [id number] : 1950 74 From: Tom Birmingham DO PCP: Dr. Steve Alexandre MD Status:ADM RANDOLPH Location: [place] [id number] Assessment Plan Assessment/Plan (1) Status post right knee replacement: PLAN: Plan Patient is a 74-year-old female who presented [facility] on 01/30/2025 for planned right knee replacement. [...] is a 74 F who presented to [facility] on 01/30/2025 for planned right knee replacement. [...] any other acute concerns at this time. PENDING SALE TO [facility] Medical History Dietary restriction Burning with urination [...] disease) Multiple (more content not included)... Normal [facility] Decalcification bone/plaqueo n 01-30-2025 Decalcification bone/plaque -------- Patient Age/Sex Location Account Attending Physician -------- ALMA XIONG 74/F MS3 [id number] Dr. Richmond Ricardo MD -------- Specimen: [id number] Received: 01/30/25 Status: JANEE Novak Num: [id number] Spec Type: TOTAL KNEE Subm Dr: Dr. [...] name and date of . Designated as right knee debrided bone and tissue is a 12.7 x 12.3 x 3.2 cm aggregate of celeste-yellow soft tissue, celeste-white fibrous tissue and irregular bone fragments, collectively comprising a knee joint. Majority of the bone fragments are surfaced by celeste granular articular cartilage with areas of eburnation and mild peripheral osteophyte formation. Music Ministries Director sections are submitted in 2 cassettes, following decalcification as follows: A1: Bone with eburnation and osteophyte formationA2: Soft tissue IN 01/31/2025 CPT:04457,75592 -------- Patient Age/Sex Location Account Attending Physician -------- ALMA XIONG 74/F MS3 [id number] Dr. Richmond Ricardo MD -------- Signed (signature on file) Dr. Mariah Maloney MD 02/12/25 1242 -------- Normal [facility] Comment on above: Performed By: #### P DEC ####[facility] [id number] [facility] [place], [address] Glucose [facility] at [facility] deOrdered By: Matt Lema on 01-30-2025 Glucose [Mass/Vol] 89 mg/dL 74-106 [facility] Comment on above: MANAGEMENT OF PATIEN T CARE PER NURSING PROTOCOL Knee 1 or 2 Viewson 01-31-20 Knee 1 or 2 Views [facility] Imaging Services [address] [place] [address] Knee 1 or 2 Views MR#: [id number] Acct: [id number] Name: ALMA XIONG Rep #: [id number] : 1950 F 74 From: Richmond Davenport PCP: Dr. Steve Alexandre MD Status: ADM RANDOLPH Study: Knee 1 or 2 Views Date of Exam: 01/30/25 Exam# [id number] Ordering Dr: Matt Lema MD PROCEDURE: KNEE 1 OR 2 VIEWS 01/30/2025 REASON FOR EXAM: TKA TECHNIQUE: AP and lateral portable postoperative right knee COMPARISON: None provided. RAD/Knee 1 or 2 Views IMPRESSION: Overlying skin mario are seen. The patient is postoperative right total knee arthroplasty, with satisfactory alignment seen. No complication is noted. No fracture site is evident. Reading Location: [place] [address] CC: Dr. Steve Alexandre MD; Dr. Matt Lema MD [employer] Supervisor: Signed [facility] MR/POSTOP.[facility] 01-30-2025 MR/POSTOP.[facility] Medical Records Department [address] [place] [address] Anesthesia Postop Eval I 01/30/25 1604 MR#: [id number] Acct: [id number] Name: ALMA XIONG Rep #: [id number] : 1950 74 From: Caesar Das CRNA PCP: Dr. Steve Alexandre MD Status:ADM RANDOLPH Y Race: C Location: [place] [address] Anesthesia: Postop Eval I Current Vital Signs [...] completed: Yes 01/30/25 1605 Date Caesar Das INTERNATIONAL OPERATIONS MANAGER Cosigner Signature: Date CC: Signed Normal [facility] MR/[id number] 01-30-2025 MR/POSTOPAN2 [facility] Medical Records Department [address] [place] [address] Anesthesia Postop Eval II 01/30/251817 MR#: [id number] Acct: [id number] Name: AMLA XIONG Rep #: [id number] : 1950 74 From: Lior Reynaga MD PCP: Dr. Steve Alexandre MD Status:ADM RANDOLPH Y Race: C Location: [facility] [id number] Anesthesia Postop Eval I Sum Postop Eval Completion status Anesthesia document: Postop Eval 1 completed: Yes Anesthesia Postop Eval I Summary Anesthesia Postop Eval I Summary: Anesthesia Postop Eval I: Assessment Summary Airway patent Yes 01/30/25 16:05 INTERNATIONAL OPERATIONS MANAGER.ACAR Spontaneous unlabored Yes 01/30/25 16:05 INTERNATIONAL OPERATIONS MANAGER.ACAR respirations Mental status Awake 01/30/25 16:05 INTERNATIONAL OPERATIONS MANAGER.ACAR nausea No 01/30/25 16:05 INTERNATIONAL OPERATIONS MANAGER.ACAR Vomiting No 01/30/25 16:05 INTERNATIONAL OPERATIONS MANAGER.ACAR Anesthesia Postop Eval I: Fluid Summary Crystalloid volume administer 2,000 01/30/25 16:05 INTERNATIONAL OPERATIONS MANAGER.ACAR (ml) Colloids volume administered ( ml) Blood Product volume administered (ml) Total IV fluid infused 2,000 01/30/25 16:05 INTERNATIONAL OPERATIONS MANAGER.ACAR Anesthesia Postop Eval I: Summary Notes Anesthesia Complication No 01/30/25 16:05 INTERNATIONAL OPERATIONS MANAGER.ACAR Anesthesia Complication Comment: Post-operative progress note Anesthesia: Postop Eval II Evaluation Mental status: Awake and Calm Pain Level: 5 nausea: No Vomiting: No Complications Anesthesia Complication: No 07/01/25 1818 Date Lior Marroquin Signature: Date CC: Signed Normal [facility] Operative Reporton 5 Operative Report [facility] Medical Records Department [address] [place] [address] Operative Report 01/30/25 1517 MR#: [id number] Acct: [id number] Name: ALMA XIONG Rep #: [id number] : 1950 74 From: Matt Lema MD PCP: Dr. Steve Alexandre MD Status:DIS RANDOLPH Location: [place] [address] Operative Report (Standard) Operative Information Date of Procedure: 01/30/25 Pre-Operative Diagnosis: Right knee primary osteoarthritis Post-Operative Diagnosis: Right knee primary osteoarthritis Surgery/Procedure Performed: Right knee minimally invasive robotic assisted total arthroplasty heel sprayer: Yes Finished Hardware Erector: Ty Maynard Tasks completed by elementary assistant principal: Other (See body of operative report) Additional commissary assistant?: No Type of Anesthesia: Spinal RN [...] cuts Description of surgery: Implants used: 1. [place] size 4 triathlon cruciate retaining distal femoral press-fit component 2. [place] size 4 press-fit tritanium tibial baseplate 3. Jerry X3 9 mm CS polyethylene 4. Jerry [...] field sterile (more content not included)... Normal [facility] Pulmonary Visit Reporton Pulmonary Visit Report [facility]monary Medicine of [address] [place] [address] OFFICE VISIT Date of Service: 01/17/25 MR#: [id number] Acct: [id number] Name: ALMA XIONG Rep #: [id number] : 1950 Provider: Dina Edmondson NP Age/Sex: 74/F Location: [facility] Status: Signed Assessment and Plan Assessment and [...] body ache (more content not included)... Normal [facility] Internal Medicine Office Vis iton 01-10-2025 Internal Medicine Office Visit [facility] [address] [place] [address] [place] [address] OFFICE VISIT Date of Service: 01/10/25 MR#: [id number] Acct: [id number] Name: ALMA XIONG Rep #: [id number] : 1950 Provider: CHEVY Pruitt Age/Sex: 74/F Location: [facility] Status: Signed Intake Vital Signs 12/15/24 10:29 [...] ACUTE SURGICAL CLEARANCE Chief Complaint: sgy clearance Financial Recording Clerk Required: No Accompanied by: Self Is patient [...] year?: No Nurse's Note: patient has nail sri lankan possibly affecting the oxygen reading but patient has a history with pulmonary issues will be having right knee replacement PENDING SALE TO [facility] Medical History Dietary restriction Burning with urination [...] well as (more content not included)... Normal [facility] MR/PAT.ANEon 01-04-2025 MR/PAT.ANE [facility] Medical Records Department [address] [place] [address] PAT - Anesthesia 01/04/25 1744 MR#: [id number] Acct: [id number] Name: ALMA XIONG Rep #: [id number] : 1950 74 From: Mk Osborn MD PCP: Dr. 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: Anesthesia History - spar machine operator helper Hx Hospitalization No 01/04/25 15:57 Any Problems [...] take am of surgery PONV PONV - spar machine operator helper: PONV - spar machine operator helper Female Yes 01/04/25 15:57 HX of Motion [...] 12/15/24 10:29 Respiratory Assessment Respiratory Assessment - spar machine operator helper: Respiratory Tract Infection Hx - spar machine operator helper Hx Respiratory Tract Infection No 01/04/25 15:57 STOP Sleep Apnea STOP Sleep Apnea - spar machine operator helper: STOP Sleep Apnea - spar machine operator helper Hx Hypertension Yes: CONTROLLED WITH MED 01/04/25 [...] Tobacco Use History Tobacco Use History - spar machine operator helper: Tobacco Use History - spar machine operator helper Tobacco Use Smoking Status Former smoker 01/04/25 15:57 Hx Tobacco Use No 01/04/25 15:57 Years Smoking Packs Smoked per Day Smoking Cessation Date was No - quit smoking greater 01/04/25 15:57 within the last 15 years than 15 years ago Hx Smoking Cessation Date Hx Smoking Cessation No 01/04/25 15:57 Counseling Hematologic Medial History Hematologic Hx - spar machine operator helper: 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 Normal [facility] ALBUMIN PLASMAon 01-02-2025 Albumin [Mass/Vol] 3.7 g/dL Normal 3.4 - 5.0 [facility] Comment on above: Performed By: #### 2 [id number] #### [facility],[address] [place] [address] BMP with eGFRon 01-02-2025 AGE 74 years Normal [facility] Comment on above: Performed By: #### 2 64255 #### [facility],[address] [place] [address] Anion gap [Moles/Vol] 9 mmol/L Low 10 - 20 [facility] Comment on above: Performed By: #### 2 06312 #### [facility],[address] [place] [address] 110[address] BMP with eGFR Normal [facility] Comment on above: Result Comment: BASI C METABOLIC PANEL Performed By: #### 2 45605 #### [facility],[address] [place] [address] Calcium [Mass/Vol] 9.6 mg/dL Normal 8.5 - 10.1 [facility] Comment on above: Performed By: #### 2 99544 #### [facility],[address] [place], [place] [address] Chloride [Moles/Vol] 101 mmol/L Normal 98 - 107 [facility] Comment on above: Performed By: #### 2 96481 #### [facility],[address] [place] [address] CO2 [Moles/Vol] 33.0 mmol/L High 21.0 - 32.0 [facility] Comment on above: Performed By: #### 2 09729 #### [facility],[address] [place] [address]28 Creatinine [Mass/Vol] 0.96 mg/dL Normal 0.55 - 1.02 [facility] Comment on above: Performed By: #### 2 99914 #### [facility],[address] [place] [address] 32957 eGFR 57 ML/MINUTE Low 60 - 999 [facility] Comment on above: Performed By: #### 2 36586 #### [facility],[address] [place] [address]353 GFR/1.73 sq M.predicted among non-blacks MDRD (S/P/Bld) [Vol rate/Area] mL/min/{1.73_m2} Normal 60 - 999 [facility] Comment on above: Result Comment: ACCO RDING TO THE NATIONAL KIDNEY DISEASE EDUCATION PROGRAM(NKDE), A NORMAL eGFR IS A VALUE GREATER THAN OR EQUAL TO 60 ML/MIN/1.73 SQ METERS. CHRONIC KIDNEY DISEASE: <60mL/MIN/1.73 SQ METERS KIDNEY FAILURE: <15mL/MIN/1.73 SQ METERS THIS TEST SHOULD ONLY BE USED FOR PATIENTS 18 YEARS OF AGE AND OLDER. Performed By: #### 2 78664 #### [address] [address] Glucose [Mass/Vol] 83 mg/dL Normal 74 - 106 [facility] Comment on above: Performed By: #### 2 45915 #### [address] [address] Potassium [Moles/Vol] 3.6 mmol/L Normal 3.5 - 5.1 [facility] Comment on above: Performed By: #### 2 90623 #### [address] [address] Sodium [Moles/Vol] 139 mmol/L Normal 136 - 145 [facility] Comment on above: Performed By: #### 2 56598 #### [address] [address] Urea nitrogen [Mass/Vol] 18 mg/dL Normal 7 - 18 [facility] Comment on above: Performed By: #### 2 85527 #### [address] [address] CBC + DIFFon 01-02-2025 Baso # 0.02 x10EE3/UL Normal 0.00 - 0.10 [facility] Comment on above: Performed By: #### 2 92732 #### [facility],[address] [place], [place] [address] Basophils/100 WBC (Bld) 0.3 % Normal 0.0 - 2.0 [facility] Comment on above: Performed By: #### 2 40379 #### [facility],[address] [place] [address] CBC + DIFF Normal [facility] Comment on above: Result Comment: CBC- COMPLETE BLOOD COUNT Performed By: #### 2 44849 #### [facility],[address] [place] [address] EO # 0.43 x10EE3/UL Normal 0.00 - 0.50 [facility] Comment on above: Performed By: #### 2 23225 #### [facility],[address] [place] [address] Eosinophils/100 WBC (Bld) 6.7 % Normal 0.0 - 7.0 [facility] Comment on above: Performed By: #### 2 02508 #### [facility],[address] [place] [address] Erythrocyte distribution width (RBC) [Ratio] 14.9 % Normal 12.0 - 15.6 [facility] Comment on above: Performed By: #### 2 21697 #### [facility],[address] [place] [address] Hematocrit (Bld) [Volume fraction] 41.2 % Normal 34.0 - 46.0 [facility] Comment on above: Performed By: #### 2 51664 #### [facility],[address] [place], [place] [address] Hemoglobin (Bld) [Mass/Vol] 14.0 g/dL Normal 12.0 - 16.0 [facility] Comment on above: Performed By: #### 2 25459 #### [facility],[address] [place] [address] Lymph # 2.06 x10EE3/UL Normal 0.80 - 2.80 [facility] Comment on above: Performed By: #### 2 46844 #### [facility],[address] [place] [address] Lymphocytes/100 WBC (Bld) 32.4 % Normal 20.0 - 45.0 [facility] Comment on above: Performed By: #### 2 13351 #### [facility],[address] [place] [address] MANUAL DIFF N/A Normal [facility] Comment on above: Performed By: #### 2 04483 #### [facility],[address] [place] [address] MCH (RBC) [Entitic mass] 27 pg Normal 27 - 33 [facility] Comment on above: Performed By: #### 2 77222 #### [facility],[address] [place] [address] MCHC 34 X10 3 Normal 32 - 36 [facility] Comment on above: Performed By: #### 2 40823 #### [facility],[address] [place], [place] [address] MCV (RBC) [Entitic vol] 80 fL Normal 80 - 99 [facility] Comment on above: Performed By: #### 2 54377 #### [facility],[address] [place] [address] [place] # 0.45 x10EE3/UL Normal 0.20 - 1.00 [facility] Comment on above: Performed By: #### 2 87776 #### [facility],[address] [place] [address] MONOS % 7.1 % Normal 0.0 - 10.0 [facility] Comment on above: Performed By: #### 2 81359 #### [facility],[address] [place] [address] Morphology Jacob (Bld) [Interp] N/A Normal [facility] Comment on above: Performed By: #### 2 24274 #### [facility],[address] [place] [address] Neut # 3.41 x10EE3/UL Normal 1.50 - 7.10 [facility] Comment on above: Performed By: #### 2 56136 #### [facility],[address] [place] [address] Neutrophils/100 WBC (Bld) 53.6 % Normal 46.0 - 76.0 [facility] Comment on above: Performed By: #### 2 96935 #### [facility],[address] [place] [address] PLATELET 275 x10EE3/UL Normal 150 - 450 [facility] Comment on above: Performed By: #### 2 45274 #### [facility],[address] [place] [address] Platelet mean volume (Bld) [Entitic vol] 8.8 fL Normal 6.6 - 10.5 [facility] Comment on above: Result Comment: AUTO MATED DIFFERENTIAL Performed By: #### 2 03968 #### [facility],[address] [place] [address] RBC 5.18 x 10EE6/UL Normal 4.10 - 5.30 [facility] Comment on above: Performed By: #### 2 52380 #### [facility],[address] [place] [address] 09365 WBC 6.4 x 10EE3/UL Normal 4.5 - 10.8 [facility] Comment on above: Performed By: #### 2 62434 #### [facility],[address] [place] [address] [facility] CT LOWER EXTREMITY RT [place] [address] Patient: ALMA XIONG Phone#: : 1950 Age: 74 Gender: F Pt. Type: Out Account: [id number] Location: Ordering: MATT LEMA Exam Date: 01/02/2025/13:14 Family Phys: STEVE ALEXANDRE Charge Code: 112682 Physician: [place] Order #: [id number] Dose#: 34.8 mGy PROCEDURE: CT LOWER EXTREMITY [...] Lind MD on 01/02/2025 at 15:46 Normal [facility] MAGNESIUMon 01-02-2025 Magnesium [Mass/Vol] 1.9 mg/dL Normal 1.8 - 2.4 [facility] Comment on above: Performed By: #### 2 68810 #### [facility],[address] [place], [place] [address] MRSA Spec Ql Culton 01-03-20 25 MRSA isol Org specific cx Ql (Unsp spec) STAPHYLOCOCCUS AUREUS CULTURE: No growth Normal [facility] Comment on above: Performed By: #### 1 3317-3 #### [facility] CLIA [id number] [address] [place] [address] [place] TSHon 01-02-2025 TSH Qn 0.40 m[IU]/L Normal 0.35 - 3.74 [facility] Comment on above: Performed By: #### 2 44463 #### [facility],[address] [facility] [address] Orthopedic Visit Reporton Orthopedic Visit Report [facility] [address] [place] [address] OFFICE VISIT Date of Service: 12/15/24 MR#: [id number] Acct: [id number] Name: ALMA XIONG Rep #: [id number] : 1950 Provider: Dr. Yordan Shen MD Age/Sex: 74/F Location: [facility] [place] Status: Signed Intake Vital Signs 11/15/24 12:46 [...] instantly. S (more content not included)... Normal [facility] Anion gap in Serum or Plasma Ordered By: Steve Alexandre on 12-05-2024 Anion gap [Moles/Vol] 12 mmol/L 5-15 [facility] BUN/creatinine ratioOrdered By: Steve Alexandre on 12-05-2024 Urea nitrogen/Creatinine [Mass ratio] 21.5 mg/mg High 10-20 [facility] Bilirubin, totalOrdered By: Steve Alexandre on 12-05-2024 Bilirubin [Mass/Vol] 0.53 mg/dL 0.00-1.30 [facility] Carbon dioxide, total [Moles /volume] in Central venous bloodOrdered By: Steve Alexandre on 12-05-2024 CO2 [Moles/Vol] 25.7 mmol/L 21.0-32.0 [facility] Chloride assayOrdered By: Julieth herberth Alexandre on 12-05-2024 Chloride [Moles/Vol] 101 mmol/L 98-108 [facility] Comprehensive Metabolic Prof ilon 12-05-2024 Albumin [Mass/Vol] 4.2 g/dL Normal 3.4-4.8 [facility] Comment on above: Performed By: #### L 500.2500 #### [facility] [address] [place], [address] Albumin/Globulin [Mass ratio] 1.6 {ratio} Normal 0.9-2.4 [facility] Comment on above: Performed By: #### L 500.2500 #### [facility] [address] [place], [address] ALK PHOS 53 U/L Normal 35-104 [facility] Comment on above: Performed By: #### L 500.2500 #### [facility] [address] [place], [address] ALT [Catalytic activity/Vol] 36 U/L High <=34 [facility] Comment on above: Performed By: #### L 500.2500 #### [facility] [address] [place], [address] AST [Catalytic activity/Vol] 24 U/L Normal <=31 [facility] Comment on above: Performed By: #### L 500.2500 #### [facility] [address] [place], [address] Bilirubin [Mass/Vol] 0.53 mg/dL Normal 0.00-1.30 [facility] Comment on above: Performed By: #### L 500.2500 #### [facility] [address] [place], [address] BUN/CRE 21.5 RATIO High 10-20 [facility] Comment on above: Performed By: #### L 500.2500 #### [facility] [address] [place] [place], [address] Calcium [Mass/Vol] 9.0 mg/dL Normal 7.6-11.0 [facility] Comment on above: Performed By: #### L 500.2500 #### [facility] [address] [place], [address] Chloride [Moles/Vol] 101 mmol/L Normal 98-108 [facility] Comment on above: Performed By: #### L 500.2500 #### [facility] [address] [place], [address] CO2 [Moles/Vol] 25.7 mmol/L Normal 21.0-32.0 [facility] Comment on above: Performed By: #### L 500.2500 #### [facility] [address] [place] [place], [address] Creatinine [Mass/Vol] 0.98 mg/dL Normal 0.70-1.20 [facility] Comment on above: Performed By: #### L 500.2500 #### [facility] [address] [place], [address] GAP 12 Normal 5-15 [facility] Comment on above: Performed By: #### L 500.2500 #### [facility] [address] [place], [address] GFR/1.73 sq M.predicted among non-blacks MDRD (S/P/Bld) [Vol rate/Area] 62 mL/min/{1.73_m2} Normal >60 [facility] Comment on above: Result Comment: mL/m in/1.73m2 CKD-EPI Creatinine Equation (2020) Performed By: #### L 500.2500 #### [facility] [address] [place] [place], [address] Globulin (S) [Mass/Vol] 2.6 g/dL Normal 2.2-4.2 [facility] Comment on above: Performed By: #### L 500.2500 #### [facility] [address] [place], [address] Glucose [Mass/Vol] 114 mg/dL High 70-99 [facility] Comment on above: Performed By: #### L 500.2500 #### [facility] [address] [place], [address] Potassium [Moles/Vol] 3.6 mmol/L Normal 3.3-5.1 [facility] Comment on above: Performed By: #### L 500.2500 #### [facility] [address] [place], [address] Sodium [Moles/Vol] 138 mmol/L Normal 133-145 [facility] Comment on above: Performed By: #### L 500.2500 #### [facility] [address] [place], [address] T PROT 6.7 g/dL Normal 5.9-8.4 [facility] Comment on above: Performed By: #### L 500.2500 #### [facility] [address] [place], [address] Urea nitrogen [Mass/Vol] 21 mg/dL High 4-19 [facility] Comment on above: Performed By: #### L 500.2500 #### [facility] [address] [place], [address] Glomerular filtration rate ( GFR) estimation/1.73 sq m using serum, plasma, or whole bOrdered By: Steve Alexandre on 12-05-2024 GFR/1.73 sq M.predicted among non-blacks MDRD (S/P/Bld) [Vol rate/Area] 62 mL/min/{1.73_m2} >60 [facility] Comment on above: mL/min/1.73m2 CKD-EP I Creatinine Equation (2020) Laboratory - Chemistry and C hemistry - challengeOrdered By: Steve Alexandre on 12-05-2024 AST [Catalytic activity/Vol] 24 U/L <32 [facility] Potassium measurement (mass/ volume)Ordered By: Steve Alexandre on 12-05-2024 Potassium (Unsp spec) [Mass/Vol] 3.6 mmol/L 3.3-5.1 [facility] Serum creatinine measurement (mass/volume)Ordered By: Steve Alexandre on 12-05-2024 Creatinine [Mass/Vol] 0.98 mg/dL 0.70-1.20 [facility] Serum globulin measurementOr dered By: Steve Alexandre on 12-05-2024 Globulin (S) [Mass/Vol] 2.6 g/dL 2.2-4.2 [facility] Serum glucose measurement (m ass/volume)Ordered By: Steve Alexandre on 12-05-2024 Glucose [Mass/Vol] 114 mg/dL High 70-99 [facility] Serum or plasma alanine hernadez otransferase (ALT) measurementOrdered By: Steve Alexandre on 12-05-2024 ALT [Catalytic activity/Vol] 36 U/L High <35 [facility] Serum or plasma albumin nereida urement (mass/volume)Ordered By: Steve Alexandre on 12-05-2024 Albumin [Mass/Vol] 4.2 g/dL 3.4-4.8 [facility] Serum or plasma albumin/glob ulin mass ratioOrdered By: Steve Alexandre on 12-05-2024 Albumin/Globulin [Mass ratio] 1.6 {ratio} 0.9-2.4 [facility] Serum or plasma alkaline wilfredo sphatase measurementOrdered By: Steve Alexandre on 12-05-2024 ALP [Catalytic activity/Vol] 53 U/L 35-104 [facility] Serum or plasma calcium nereida urement (mass/volume)Ordered By: Steve Alexandre on 12-05-2024 Calcium [Mass/Vol] 9.0 mg/dL 7.6-11.0 [facility] Serum or plasma urea nitroge n measurement (mass/volume)Ordered By: Steve Alexandre on 12-05-2024 Urea nitrogen [Mass/Vol] 21 mg/dL High 4-19 [facility] Sodium levelOrdered By: Hiram Alexandre on 12-05-2024 Sodium [Moles/Vol] 138 mmol/L 133-145 [facility] Total proteinOrdered By: Jersey Alexandre on 12-05-2024 Protein [Mass/Vol] 6.7 g/dL 5.9-8.4 [facility] Spine Thoracic (Routine)on 0 11-27-2024 Spine Thoracic (Routine) [facility] [address] [place] [address] Spine Thoracic (Routine) MR#: [id number] Acct: [id number] Name: ALMA XIONG Rep #: [id number] : 1950 F 74 From: Duarte Teixeira MD PCP: Dr. Steve Alexandre MD Status: REG CLI Study: Spine Thoracic (Routine) Date of Exam: Exam# [id number] Ordering Dr: Yordan Shen MD PROCEDURE: SPINE THORACIC (ROUTINE) 11/27/2024 REASON FOR EXAM: PAIN TECHNIQUE: Noncontrast thoracic spine MRI. Multiplanar and multisequence images were obtained. FINDINGS: Ctrs view with note of vertebral osseous fusion [...] compression or abnormal cord signal. Reading Location: [facility] CC: Dr. Yordan Shen MD; Dr. Steve Alexandre MD [employer] Supervisor: Signed Normal [facility] Urine Cultureon 11-25-2024 [facility] Strep anginosus [place] Count 80,000-100,000 Mixed Gram Positive Organisms Mixed Gram Positive Organisms MIXC Mixed contaminants. Submit a new specimen if indicated. Strep anginosus: REACTION Ampicillin Islt GREG <=0.25 Penicillin G Islt GREG <=0.06 S Cefotaxime Islt GREG <=0.12 cefTRIAXone Islt GREG <=0.12 S Clindamycin Islt GREG <=0.25 S Linezolid Islt GREG <=2 S Vancomycin Islt GREG 0.25 S Normal [facility] Comment on above: Performed By: #### L 400.0001, M100.2200 #### [facility] [address] [place], [address] Quantiferon TB-Gold+on 11-23 QFT MITOGEN MALISSA > 10.00 Normal . [facility] Comment on above: Performed By: #### L 3400.8000 ####[facility] [address] [place], [place], [phone] QFT NIL VALUE 0.15 IU/mL Normal . [facility] Comment on above: Performed By: #### L 3400.8000 ####[facility] [address] [place], [address] QFT TB GOLD+ Comment Normal . [facility] Comment on above: Result Comment: Hayden tiFERON-TB [...] the test. Performed By: #### L 3400.8000 ####[facility] [address] [place], [address] QFT TB POS CRIT Negative Normal Negative [facility] Comment on above: Result Comment: No r [...] interferon gamma. Chemiluminescence immunoassay methodology Performed at: [employer] [id number] Prom[employer] Team Leader: Edin Prater PhD, Phone: [phone] Performed By: #### L 3400.8000 ####[facility] [address] [place], [address] QFT TB1+ AG MALISSA 0.13 IU/mL Normal . [facility] Comment on above: Performed By: #### L 3400.8000 ####[facility] [address] [place], [address] QFT TB2+ AG MALISSA 0.12 IU/mL Normal . [facility] Comment on above: Performed By: #### L 3400.8000 ####[facility] [address] [place], [address] Anion gap in Serum or Plasma Ordered By: Steve Alexandre on 11-21-2024 Anion gap [Moles/Vol] 12 mmol/L 5-15 [facility] BUN/creatinine ratioOrdered By: Steve Alexandre on 11-21-2024 Urea nitrogen/Creatinine [Mass ratio] 16.3 mg/mg 10- [facility] Bilirubin Test strip Ql (U)O rdered By: Steve Alexandre on 11-21-2024 Bilirubin Ql (U) 6 mg/dL High Negative [facility] Comment on above: COLOR OF URINE MAY A FFECT DIPSTICK RESULTS. Bilirubin, totalOrdered By: Steve Alexandre on 11-21-2024 Bilirubin [Mass/Vol] 0.85 mg/dL 0.00-1.30 [facility] Carbon dioxide, total [Moles /volume] in Central venous bloodOrdered By: Steve Alexandre on 11-21-2024 CO2 [Moles/Vol] 23.9 mmol/L 21.0-32.0 [facility] Chloride assayOrdered By: Julieth Alexandre on 11-21-2024 Chloride [Moles/Vol] 100 mmol/L 98-108 [facility] Comprehensive Metabolic Prof ilon 11-21-2024 Albumin [Mass/Vol] 4.3 g/dL Normal 3.4-4.8 [facility] Comment on above: Performed By: #### L 500.2500 #### [facility] [address] [place], [address] Albumin/Globulin [Mass ratio] 1.6 {ratio} Normal 0.9-2.4 [facility] Comment on above: Performed By: #### L 500.2500 #### [facility] [address] [place], [address] ALK PHOS 61 U/L Normal 35-104 [facility] Comment on above: Performed By: #### L 500.2500 #### [facility] [address] [place], [address] ALT [Catalytic activity/Vol] 43 U/L High <=34 [facility] Comment on above: Performed By: #### L 500.2500 #### [facility] [address] [place], [address] AST [Catalytic activity/Vol] 39 U/L High <=31 [facility] Comment on above: Performed By: #### L 500.2500 #### [facility] [address] [place], [address] Bilirubin [Mass/Vol] 0.85 mg/dL Normal 0.00-1.30 [facility] Comment on above: Performed By: #### L 500.2500 #### [facility] [address] [place], [address] BUN/CRE 16.3 RATIO Normal 10-20 [facility] Comment on above: Performed By: #### L 500.2500 #### [facility] [address] [place], [address] Calcium [Mass/Vol] 9.4 mg/dL Normal 7.6-11.0 [facility] Comment on above: Performed By: #### L 500.2500 #### [facility] [address] [place], [address] Chloride [Moles/Vol] 100 mmol/L Normal 98-108 [facility] Comment on above: Performed By: #### L 500.2500 #### [facility] [address] [place] [place], [address] CO2 [Moles/Vol] 23.9 mmol/L Normal 21.0-32.0 [facility] Comment on above: Performed By: #### L 500.2500 #### [facility] [address] [place], [address] Creatinine [Mass/Vol] 0.97 mg/dL Normal 0.70-1.20 [facility] Comment on above: Performed By: #### L 500.2500 #### [facility] [address] [place], [address] GAP 12 Normal 5-15 [facility] Comment on above: Performed By: #### L 500.2500 #### [facility] [address] [place], [address] GFR/1.73 sq M.predicted among non-blacks MDRD (S/P/Bld) [Vol rate/Area] 62 mL/min/{1.73_m2} Normal >60 [facility] Comment on above: Result Comment: mL/m in/1.73m2 CKD-EPI Creatinine Equation (2020) Performed By: #### L 500.2500 #### [facility] [address] [place], [address] Globulin (S) [Mass/Vol] 2.7 g/dL Normal 2.2-4.2 [facility] Comment on above: Performed By: #### L 500.2500 #### [facility] [address] [place], [address] Glucose [Mass/Vol] 98 mg/dL Normal 70-99 [facility] Comment on above: Performed By: #### L 500.2500 #### [facility] [address] [place], [address] Potassium [Moles/Vol] 3.8 mmol/L Normal 3.3-5.1 [facility] Comment on above: Performed By: #### L 500.2500 #### [facility] [address] [place], [address] Sodium [Moles/Vol] 135 mmol/L Normal 133-145 [facility] Comment on above: Performed By: #### L 500.2500 #### [facility] [address] [place], [address] T PROT 6.9 g/dL Normal 5.9-8.4 [facility] Comment on above: Performed By: #### L 500.2500 #### [facility] [address] [place], [address] Urea nitrogen [Mass/Vol] 16 mg/dL Normal 4-19 [facility] Comment on above: Performed By: #### L 500.2500 #### [facility] [address] [place], [address] Epithelial cells.squamous LM Ql (Urine sed)Ordered By: Steve Alexandre on 11-21-2024 Epithelial cells.squamous LM.HPF (Urine sed) [#/Area] 0 /[HPF] 5-10 [facility] GFR/1.73 sq M.predicted yvan g non-blacks MDRD (S/P/Bld) [Vol rate/Area]Ordered By: Hiramfarhan Alexandre on 11-21-2024 Estimated GFR (MDRD) Non-Af Amer 62 >60 [facility] Comment on above: mL/min/1.73m2 CKD-EP I Creatinine Equation (2020) Gastroenterology Visit Repor ton 11-21-2024 Gastroenterology Visit Report [facility]astroenterology [address] 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 PENDING SALE TO [facility] Medical History Elevated liver enzymes Thyroid disease [...] Cardiology: Posit (more content not included)... Normal [facility] Glomerular filtration rate ( GFR) estimation/1.73 sq m using serum, plasma, or whole bOrdered By: Steve Alexandre on 11-21-2024 GFR/1.73 sq M.predicted among non-blacks MDRD (S/P/Bld) [Vol rate/Area] 62 mL/min/{1.73_m2} >60 [facility] Comment on above: mL/min/1.73m2 CKD-EP I Creatinine Equation (2020) Glucose Ql (U)Ordered By: Julieth Alexandre on 11-21-2024 Urine Glucose (UA) Normal mg/dl Normal [facility] Hyaline casts LM.LPF (Urine sed) [#/Area]Ordered By: Steve Alexandre on 11-21-2024 Hyaline casts (Urine sed) [#/Area] 0 /[LPF] 0-5 [facility] Hyaline casts LM Ql (Urine sed) 0 SEEN /lpf 0-5 [facility] Ketones Test strip Ql (U)Ord ered By: Steve Alexandre on 11-21-2024 Ketones Ql (U) Negative Negative [facility] Laboratory - Chemistry and C hemistry - challengeOrdered By: Steve Alexandre on 11-21-2024 AST [Catalytic activity/Vol] 39 U/L High <32 [facility] M. tuberculosis tuberculin s marah IFN-g Ql (Bld)Ordered By: Otilia Cameron on 11-21-2024 TB Test (QFT) Antigen 1 0.13 IU/mL . [facility] Microscopic analysis of urin e for red blood cells (RBC)Ordered By: Steve Alexandre on 11-21-2024 Microscopic analysis of urine for red blood cells (RBC) 0-5 SEEN /hpf 0-5 [facility] Urine RBC 0-5 SEEN /hpf 0-5 [facility] Mucus LM Ql (Urine sed)Order ed By: Steve Alexandre on 11-21-2024 Mucus Ql (Urine sed) 0 SEEN /hpf [facility] Nitrite Test strip Ql (U)Ord ered By: Steve Alexandre on 11-21-2024 Nitrite Ql (U) Positive High Negative [facility] Potassium (Unsp spec) [Mass/ Vol]Ordered By: Steve Alexandre on 11-21-2024 Potassium [Moles/Vol] 3.8 mmol/L 3.3-5.1 [facility] Potassium measurement (mass/ volume)Ordered By: Steve Alexandre on 11-21-2024 Potassium (Unsp spec) [Mass/Vol] 3.8 mmol/L 3.3-5.1 [facility] Protein Test strip Ql (U)Ord ered By: Steve Alexandre on 11-21-2024 Protein Ql (U) 100 mg/dl High Negative [facility] Qualitative QuantiFERON-TB g old in tube testOrdered By: Otilia Cameron on 11-21-2024 M. tuberculosis tuberculin stim IFN-g Ql (Bld) 0.13 IU/mL . [facility] Quantiferon-TB Gold Plus gloria tOrdered By: Otilia Cameron on 11-21-2024 TB Test (QFT) Comment . [facility] Comment on above: QuantiFERON-TB Gold Plus is [...] Test (QFT) Antigen 2 0.12 IU/mL . [facility] TB Test (QFT) Mitogen > 10.00 IU/mL . [facility] TB Test (QFT) Nil 0.15 IU/mL . [facility] TB Test (QFT) Positive Criteria Negative Negative [facility] Comment on above: No response to M [...] the productionof interferon gamma. Chemiluminescence immunoassaymethodologyPerformed at: [facility] [address] [id number] Director: Edin Prater PhD, Phone: [phone] Serum creatinine measurement (mass/volume)Ordered By: Steve Alexandre on 11-21-2024 Creatinine [Mass/Vol] 0.97 mg/dL 0.70-1.20 [facility] Serum globulin measurementOr dered By: Steve Alexandre on 11-21-2024 Globulin (S) [Mass/Vol] 2.7 g/dL 2.2-4.2 [facility] Serum glucose measurement (m ass/volume)Ordered By: Steve Alexandre on 11-21-2024 Glucose [Mass/Vol] 98 mg/dL 70-99 [facility] Serum or plasma alanine hernadez otransferase (ALT) measurementOrdered By: Steve Alexandre on 11-21-2024 ALT [Catalytic activity/Vol] 43 U/L High <35 [facility] Serum or plasma albumin nereida urement (mass/volume)Ordered By: Steve Alexandre on 11-21-2024 Albumin [Mass/Vol] 4.3 g/dL 3.4-4.8 [facility] Serum or plasma albumin/glob ulin mass ratioOrdered By: Steve Alexandre on 11-21-2024 Albumin/Globulin [Mass ratio] 1.6 {ratio} 0.9-2.4 [facility] Serum or plasma alkaline wilfredo sphatase measurementOrdered By: Brittanydaniela Marcumkellyivan on 11-21-2024 ALP [Catalytic activity/Vol] 61 U/L 35-104 [facility] Serum or plasma calcium nereida urement (mass/volume)Ordered By: Steve Jossuekellyivan on 11-21-2024 Calcium [Mass/Vol] 9.4 mg/dL 7.6-11.0 [facility] Serum or plasma urea nitroge n measurement (mass/volume)Ordered By: Steve Jossuekellyivan on 11-21-2024 Urea nitrogen [Mass/Vol] 16 mg/dL 4-19 [facility] Sodium levelOrdered By: Hiram real Jossuejacobo on 11-21-2024 Sodium [Moles/Vol] 135 mmol/L 133-145 [facility] Squamous epithelial cells de tection in urine sediment by light microscopyOrdered By: Steve Jossuekellyivan on 11-21-2024 Epithelial cells.squamous LM Ql (Urine sed) 0-5 SEEN /hpf 5-10 [facility] Total proteinOrdered By: Jersey bradford Jossuejacobo on 11-21-2024 Protein [Mass/Vol] 6.9 g/dL 5.9-8.4 [facility] Urinalysis, Completeon 11-21 BACTERIA 2+ /hpf Normal None Seen [facility] Comment on above: Order Comment: COLOR OF URINE MAY AFFECT DIPSTICK RESULTS. PATIENT SERVICE TECHNICIAN PST TO SPECIFY Performed By: #### L 400.0001, #### [facility] [address] [place], [address] CAST,HYALINE 0 SEEN Normal 0-5 [facility] Comment on above: Order Comment: COLOR OF URINE MAY AFFECT DIPSTICK RESULTS. PATIENT SERVICE TECHNICIAN PST TO SPECIFY Performed By: #### L 400.0001, M1.2199 #### [facility] [address] [place], [address] EPI,SQUAMOUS 0-5 SEEN Normal 5-10 [facility] Comment on above: Order Comment: COLOR OF URINE MAY AFFECT DIPSTICK RESULTS. PATIENT SERVICE TECHNICIAN PST TO SPECIFY Performed By: #### L 400.0001, M100.2200 #### [facility] [address] [place], [address] RBC 0-5 SEEN Normal 0-5 [facility] Comment on above: Order Comment: COLOR OF URINE MAY AFFECT DIPSTICK RESULTS. PATIENT SERVICE TECHNICIAN PST TO SPECIFY Performed By: #### L 400.0001, M100.2200 #### [facility] [address] [place], [address] WBC 0-5 SEEN Normal 0-5 [facility] Comment on above: Order Comment: COLOR OF URINE MAY AFFECT DIPSTICK RESULTS. PATIENT SERVICE TECHNICIAN PST TO SPECIFY Performed By: #### L 400.0001, M100.2200 #### [facility] [address] [place], [address] Mucus Ql (Urine sed) 0 SEEN Normal [facility] Comment on above: Order Comment: COLOR OF URINE MAY AFFECT DIPSTICK RESULTS. PATIENT SERVICE TECHNICIAN PST TO SPECIFY Performed By: #### L 400.0001, M100.2200 #### [facility] [address] [place], [address] Urine blood detectionOrdered By: Steve Alexandre on 11-21-2024 Urine Occult Blood Negative Negative [facility] Urine clarityOrdered By: Jersey Alexandre on 11-21-2024 Clarity (U) Cloudy Clear [facility] Urine color determinationOrd ered By: Steve Alexandre on 11-21-2024 Color (U) Tamela Yellow [facility] Urine cultureOrdered By: Jersey Alexandre on 11-21-2024 Bacteria identified Cx Nom (U) Strep anginosus Abnormal [facility] Bacteria identified Cx Nom (U) Positive Abnormal [facility] Urine glucose detectionOrder ed By: Steve Alexandre on 11-21-2024 Glucose Ql (U) Normal mg/dl Normal [facility] Urine leukocyte esterase det ection by dipstickOrdered By: Steve Alexandre on 11-21-2024 Leukocyte esterase Test strip Ql (U) Negative Negative [facility] Urine pHOrdered By: Katie ivan Baldomero on 11-21-2024 pH (U) 5.0 [pH] 5.0 - 8.0 [facility] Urine sediment bacteria coun t by microscopy (number/high power field)Ordered By: Steve Alexandre on 11-21-2024 Bacteria LM.HPF (Urine sed) [#/Area] 2 /[HPF] None Seen [facility] Urine specific gravity measu rementOrdered By: Steve Alexandre on 11-21-2024 Specific gravity (U) [Rel density] 1.020 1.002-1.03 0 [facility] Urine urobilinogen measureme ntOrdered By: Steve Alexandre on 11-21-2024 Urobilinogen Ql (U) 8 mg/dl High Normal [facility] Urobilinogen Ql (U)Ordered B y: Steve Alexandre on 11-21-2024 Urobilinogen (U) [Mass/Vol] 8 mg/dL High Normal [facility] Vitamin D, 25-hydroxyOrdered By: Steve Alexandre on 11-21-2024 Vitamin D 25-Hydroxy 58.9 ng/mL 30-100 [facility] Comment on above: Vitamin D StatusDefi ciency: <20 ng/mL (50nmol/L)Insufficiency: 20-30 ng/mL (50-75 nmol/L)Sufficiency: 30-100 ng/mL (75-250 nmol/L)Toxicity: >100 ng/mL (>250 nmol/L) Vitamin D,25 Hydroxyon 11-21 Vitamin D 25-OH 58.9 ng/mL Normal 30-100 [facility] Comment on above: Result Comment: Cee min D Status Deficiency: <20 ng/mL (50nmol/L) Insufficiency: 20-30 ng/mL (50-75 nmol/L) Sufficiency: 30-100 ng/mL (75-250 nmol/L) Toxicity: >100 ng/mL (>250 nmol/L) Performed By: #### L 500.2500 #### [facility] [address] [place], [address] White blood cell countOrdere d By: Steve Alexandre on 11-21-2024 Urine WBC 0-5 SEEN /hpf 0-5 [facility] White blood cell count 0-5 SEEN /hpf 0-5 [facility] Pulmonary Visit Reporton Pulmonary Visit Report [facility] [place] [address] [place] [address] OFFICE VISIT Date of Service: 11/15/24 MR#: [id number] Acct: [id number] Name: ALMA XIONG Rep #: [id number] 4 : 1950 Provider: Dina Edmondson NP Age/Sex: 74/F Location[place] [facility] [place] Status: Signed Assessment and Plan Assessment and [...] She reports that she did travel to [place] last summer and her friends noticed her [...] for suppl (more content not included)... Normal [facility] Anion gap in Serum or Plasma Ordered By: Steve Alexandre on 11-03-2024 Anion gap [Moles/Vol] 12 mmol/L - [facility] BUN/creatinine ratioOrdered By: Steve Alexandre on 11-03-2024 Urea nitrogen/Creatinine [Mass ratio] 15.5 mg/mg 10- [facility] Bilirubin, totalOrdered By: Steve Alexandre on 11-03-2024 Bilirubin [Mass/Vol] 0.51 mg/dL 0.00-1.30 [facility] Calculated very low density lipoprotein (VLDL) cholesterol measurementOrdered By: Steve Alexandre on 11-03-2024 Calculated very low density lipoprotein (VLDL) cholesterol measurement 30 mg/dL - [facility] VLDL Cholesterol 30 mg/dL - [facility] Carbon dioxide, total [Moles /volume] in Central venous bloodOrdered By: Steve Alexandre on 11-03-2024 CO2 [Moles/Vol] 25.0 mmol/L 21.0-32.0 [facility] Chloride assayOrdered By: Julieth Alexandre on 11-03-2024 Chloride [Moles/Vol] 101 mmol/L 98-108 [facility] Comprehensive Metabolic Prof ilon 11-03-2024 Albumin [Mass/Vol] 4.3 g/dL Normal 3.4-4.8 [facility] Comment on above: Performed By: #### L 500.4100, L500.4050, L501.9520 ####[facility] [address] [place], [address] Albumin/Globulin [Mass ratio] 1.6 {ratio} Normal 0.9-2.4 [facility] Comment on above: Performed By: #### L 500.4100, L500.4050, L501.9520 ####[facility] [address] [place], [address] ALK PHOS 53 U/L Normal 35-104 [facility] Comment on above: Performed By: #### L 500.4100, L500.4050, L501.9520 ####[facility] [address] [place], [address] ALT [Catalytic activity/Vol] 46 U/L High <=34 [facility] Comment on above: Performed By: #### L 500.4100, L500.4050, L501.9520 ####[facility] [address] [place], [address] AST [Catalytic activity/Vol] 33 U/L High <=31 [facility] Comment on above: Performed By: #### L 500.4100, L500.4050, L501.9520 ####[facility] [address] [place], [address] Bilirubin [Mass/Vol] 0.51 mg/dL Normal 0.00-1.30 [facility] Comment on above: Performed By: #### L 500.4100, L500.4050, L501.9520 ####[facility] [address] [place], [address] BUN/CRE 15.5 RATIO Normal 10-20 [facility] Comment on above: Performed By: #### L 500.4100, L500.4050, L501.9520 ####[facility] [address] [place], [address] Calcium [Mass/Vol] 10.2 mg/dL Normal 7.6-11.0 [facility] Comment on above: Performed By: #### L 500.4100, L500.4050, L501.9520 ####[facility] [address] [place], [address] Chloride [Moles/Vol] 101 mmol/L Normal 98-108 [facility] Comment on above: Performed By: #### L 500.4100, L500.4050, L501.9520 ####[facility] [address] [place], [address] CO2 [Moles/Vol] 25.0 mmol/L Normal 21.0-32.0 [facility] Comment on above: Performed By: #### L 500.4100, L500.4050, L501.9520 ####[facility] [address] [place], [address] Creatinine [Mass/Vol] 0.97 mg/dL Normal 0.70-1.20 [facility] Comment on above: Performed By: #### L 500.4100, L500.4050, L501.9520 ####[facility] [address] [place], [address] GAP 12 Normal 5-15 [facility] Comment on above: Performed By: #### L 500.4100, L500.4050, L501.9520 ####[facility] [address] [place], [address] GFR/1.73 sq M.predicted among non-blacks MDRD (S/P/Bld) [Vol rate/Area] 62 mL/min/{1.73_m2} Normal >60 [facility] Comment on above: Result Comment: mL/m in/1.73m2 CKD-EPI Creatinine Equation (2020) Performed By: #### L 500.4100, L500.4050, L501.9520 ####[facility] [address] [place], [address] Globulin (S) [Mass/Vol] 2.7 g/dL Normal 2.2-4.2 [facility] Comment on above: Performed By: #### L 500.4100, L500.4050, L501.9520 ####[facility] [address] [place], [address] Glucose [Mass/Vol] 134 mg/dL High 70-99 [facility] Comment on above: Performed By: #### L 500.4100, L500.4050, L501.9520 ####[facility] [address] [place], [address] Potassium [Moles/Vol] 3.8 mmol/L Normal 3.3-5.1 [facility] Comment on above: Performed By: #### L 500.4100, L500.4050, L501.9520 ####[facility] [address] [place], [address] Sodium [Moles/Vol] 138 mmol/L Normal 133-145 [facility] Comment on above: Performed By: #### L 500.4100, L500.4050, L501.9520 ####[facility] [address] [place], [address] T PROT 7.0 g/dL Normal 5.9-8.4 [facility] Comment on above: Performed By: #### L 500.4100, L500.4050, L501.9520 ####[facility] [address] [place], [address] Urea nitrogen [Mass/Vol] 15 mg/dL Normal 4-19 [facility] Comment on above: Performed By: #### L 500.4100, L500.4050, L501.9520 ####[facility] [address] [place], [address] GFR/1.73 sq M.predicted yvan g non-blacks MDRD (S/P/Bld) [Vol rate/Area]Ordered By: Steve Alexandre on 11-03-2024 Estimated GFR (MDRD) Non-Af Amer 62 >60 [facility] Comment on above: mL/min/1.73m2 CKD-EP I Creatinine Equation (2020) Glomerular filtration rate ( GFR) estimation/1.73 sq m using serum, plasma, or whole bOrdered By: Steve Alexandre on 11-03-2024 GFR/1.73 sq M.predicted among non-blacks MDRD (S/P/Bld) [Vol rate/Area] 62 mL/min/{1.73_m2} >60 [facility] Comment on above: mL/min/1.73m2 CKD-EP I Creatinine Equation (2020) Internal Medicine Office Vis margarito 11-03-2024 Internal Medicine Office Visit [facility] [place], [place] [address] OFFICE VISIT Date of Service: 11/03/24 MR#: [id number] Acct: [id number] Name: ALMA XIONG Rep #: [id number] 3 : 1950 Provider: Dr. Steve lerma MD Age/Sex: 74/F Location: [facility] [place] Status: Signed Intake Vital Signs 06/14/24 11:09 [...] M FU Chief Complaint: Follow-up chronic conditions Financial Recording Clerk Required: No Accompanied by: Self Is patient [...] year?: No Nurse's Note: 3 month fu PENDING SALE TO [facility] Medical History Thyroid disease Pharyngitis Loss of [...] stable. R (more content not included)... Normal [facility] LDL calc ser/plasOrdered By: Steve Alexandre on 11-03-2024 Cholesterol in LDL [Mass/Vol] 100 mg/dL [facility] Comment on above: Huomoucmgw=382-015 m g/dL & Higher Fqzu=658 mg/dL or greater LDL Cholesterol, Calculated 100 mg/dL [facility] Comment on above: Jdonjmxydx=902-634 m g/dL & Higher Vkjb=792 mg/dL or greater Laboratory - Chemistry and C hemistry - challengeOrdered By: Steve Alexandre on 11-03-2024 AST [Catalytic activity/Vol] 33 U/L High <32 [facility] Lipid Profileon 11-03-2024 CHOL:HDL 4.05 Normal [facility] Comment on above: Performed By: #### L 500.4100, L500.4050, L501.9520 ####[facility] [address] [place], [address] Cholesterol [Mass/Vol] 173 mg/dL Normal <=200 [facility] Comment on above: Result Comment: Chol esterol level, Desirable <200 mg/dL Borderline high cholesterol 200-239 mg/dL High cholesterol >=240 mg/dL Recommendations of the NCEP Adult Treatment Panel for the following risk-cutoff thresholds for the [place] population. Performed By: #### L 500.4100, L500.4050, L501.9520 ####[facility] [address] [place], [address] Cholesterol in HDL [Mass/Vol] 43 mg/dL Normal [facility] Comment on above: Result Comment: Hina onal Cholesterol Education Program (NCEP) guidelines: <40 mg/dL: Low HDL-cholesterol (major risk factor for CHD) >= 60 mg/dL: High HDL-cholesterol (negative risk factor for CHD) HDL-cholesterol is affected by a number of factors, e.g. smoking, exercise, hormones, sex and age. Performed By: #### L 500.4100, L500.4050, L501.9520 ####[facility] [address] [place], [address] Cholesterol in LDL [Mass/Vol] 100 mg/dL Normal [facility] Comment on above: Result Comment: Bord exuccr=862-134 mg/dL Higher Eemi=871 mg/dL or greater Performed By: #### L 500.4100, L500.4050, L501.9520 ####[facility] [address] [place], [address] Cholesterol in VLDL [Mass/Vol] 30 mg/dL Normal 5-40 [facility] Comment on above: Performed By: #### L 500.4100, L500.4050, L501.9520 ####[facility] [address] [place], [address] Triglyceride [Mass/Vol] 150 mg/dL Normal [facility] Comment on above: Result Comment: The drugs N-Acetylcysteine and Metamizole may falsely depress this assay. Normal range: <150 mg/dL Borderline High: 150-199 mg/dL High: 200-499 mg/dL Very High: >500 mg/dL Performed By: #### L 500.4100, L500.4050, L501.9520 ####[facility] [address] [place], [address] Potassium (Unsp spec) [Mass/ Vol]Ordered By: Steve Alexandre on 11-03-2024 Potassium [Moles/Vol] 3.8 mmol/L 3.3-5.1 [facility] Potassium measurement (mass/ volume)Ordered By: Steve Alexandre on 11-03-2024 Potassium (Unsp spec) [Mass/Vol] 3.8 mmol/L 3.3-5.1 [facility] Screening total cholesterol/ high density lipoprotein (HDL) cholesterol ratioOrdered By: Steve Alexandre on 11-03-2024 Cholesterol.total/Cho lesterol in HDL [Mass ratio] 4.05 {ratio} [facility] Serum creatinine measurement (mass/volume)Ordered By: Steve Alexandre on 11-03-2024 Creatinine [Mass/Vol] 0.97 mg/dL 0.70-1.20 [facility] Serum globulin measurementOr dered By: Steve Alexandre on 11-03-2024 Globulin (S) [Mass/Vol] 2.7 g/dL 2.2-4.2 [facility] Serum glucose measurement (m ass/volume)Ordered By: Steve Alexandre on 11-03-2024 Glucose [Mass/Vol] 134 mg/dL High 70-99 [facility] Serum or plasma alanine hernadez otransferase (ALT) measurementOrdered By: Steve Alexandre on 11-03-2024 ALT [Catalytic activity/Vol] 46 U/L High <35 [facility] Serum or plasma albumin nereida urement (mass/volume)Ordered By: Steve Alexandre on 11-03-2024 Albumin [Mass/Vol] 4.3 g/dL 3.4-4.8 [facility] Serum or plasma albumin/glob ulin mass ratioOrdered By: [facility] 11-03-2024 Albumin/Globulin [Mass ratio] 1.6 {ratio} 0.9-2.4 [facility] Serum or plasma alkaline wilfredo sphatase measurementOrdered By: Steve Alexandre 11-03-2024 ALP [Catalytic activity/Vol] 53 U/L 35-104 [facility] Serum or plasma calcium nereida urement (mass/volume)Ordered By: Steve Alexandre 11-03-2024 Calcium [Mass/Vol] 10.2 mg/dL 7.6-11.0 [facility] Serum or plasma cholesterol in HDL measurement (mass/volume)Ordered By: [facility] 11-03-2024 Cholesterol in HDL [Mass/Vol] 43 mg/dL >40 [facility] Comment on above: National Cholesterol Education Program (NCEP) guidelines:<40 mg/dL: Low HDL-cholesterol (major risk factor for CHD)>= 60 mg/dL: High HDL-cholesterol (negative risk factor for CHD)HDL-cholesterol is affected by a number of factors, e.g. smoking, exercise, hormones, sex and age. Serum or plasma cholesterol measurement (mass/volume)Ordered By: Juliethfarhan Alexandre 11-03-2024 Cholesterol [Mass/Vol] 173 mg/dL <201 [facility] Comment on above: Cholesterol level, D esirable <200 mg/dLBorderline high cholesterol 200-239 mg/dLHigh cholesterol >=240 mg/dLRecommendations of the NCEP Adult Treatment Panel for the following risk-cutoff thresholds for the [place] population. Serum or plasma urea nitroge n measurement (mass/volume)Ordered By: Steve Alexandre 11-03-2024 Urea nitrogen [Mass/Vol] 15 mg/dL 4-19 [facility] Sodium levelOrdered By: Hiram Alexandre 11-03-2024 Sodium [Moles/Vol] 138 mmol/L 133-145 [facility] TSH DL <= 0.005 mIU/L QnOrde red By: Steve Alexandre on 11-03-2024 Thyroid Stimulating Hormone (TSH) 3.630 uIU/mL 0.300-4.20 0 [facility] TSH Qn 3.630 uIU/mL 0.300-4.20 0 [facility] Thyroid Stim Hormone (TSH)on 11-03-2024 TSH 3.630 uIU/mL Normal 0.300-4.20 0 [facility] Comment on above: Performed By: #### L 500.4100, L500.4050, L501.9520 ####[facility] [address] [place], [address] Total proteinOrdered By: [place] yunieldaniela Alexandre on 11-03-2024 Protein [Mass/Vol] 7.0 g/dL 5.9-8.4 [facility] Triglycerides measurementOrd ered By: Steve Alexandre on 11-03-2024 Triglyceride [Mass/Vol] 150 mg/dL <199 [facility] Comment on above: The drugs N-Acetylcy steine and Metamizole may falsely depress this assay. Normal range: <150 mg/dLBorderline High: 150-199 mg/dLHigh: 200-499 mg/dLVery High: >500 mg/dL 6 Minute Walk Teston 025 6 Minute Walk Test y [facility] Pulmonary Services/Neurology [address] [place] [address] MR#: [id number] Acct: [id number] Name: ALMA XIONG Rep #: [id number] : 1950 74 From: Thai Hurst DO Referring Dr: Thai Hurst DO Status: REG CLI Location: PSN Date: Sex: F C PSN 6 Minute Walk Test 6 Minute Walk Test 6 Minute Walk Test: 6 Minute Walk Test PSN:6-Minute Walk Test Start: 09/19/24 09:16 Freq: Status: Active Protocol: RESP.6MINW Document 09/19/24 09:17 (Rec: 09/19/24 09:19 JR [id number]) 6 Minute Walk Test Date Performed 09/19/24 [...] Date Dictated: 09/25/24 1209 Date Transcribed: 09/25/241208 [employer] Supervisor: Dr. Thai Hurst DO Signed Normal [facility] Orthopedic Visit Reporton Orthopedic Visit Report [facility] [address] [place] [address] OFFICE VISIT Date of Service: 09/22/24 MR#: [id number] Acct: [id number] Name: ALMA XIONG Rep #: [id number] : 1950 Provider: Dr. Yordan Shen MD Age/Sex: 74/F Location: [facility] [place] Status: Signed Intake Vital Signs 08/23/24 08:08 [...] of today???s visit was documented by Alka R AT[employer], acting as scribe. ALMA XIONG is a 74 year old F here today for thoracic spine pain. Patient states the thoracic spine has been bothering her for about 5 years. It started 5 years ago in April on Labor Day amelia irvin. She was trying to move a bed and it didn't move and she felt something almost instantly. 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 She did not get any relief from the chiropractor. Patient has been a patient of [facility] so she had tried to get in with Dr. Ch so she was referred here. She has tried pain management and had 2 injections and they did not give her any relief. The last injection was in 2019. She describes the pain right in her midback and it radiate (more content not included)... Normal [facility] Thoracic Spine 2 Viewson Thoracic Spine 2 Views [facility] Imaging Services [address] [place] [address] Thoracic Spine 2 Views MR#: [id number] Acct: [id number] Name: ALMA XIONG Rep #: [id number] : 1950 F 74 From: Sean Jaime MD PCP: Dr. Steve Alexandre MD Status: DEP AMB Study: Thoracic Spine 2 Views Date of Exam: 09/22/24 Exam# [id number] Ordering Dr: Jaelyn Llanes PROCEDURE: THORACIC SPINE [...] CC: CHEVY Loredo; Dr. Steve Alexandre MD [employer] Supervisor: Signed Normal [facility] Echo Completeon 09-19-2024 Echo Complete [facility] Cardiovascular Services [address] [place] [address] Echo Complete 09/19/24 0825 MR#: [id number] Acct: [id number] Name: ALMA XIONG Rep #: [id number] : 1950 74 From: Kalyan Adler MD Attending Dr: Dr. Thai Hurst, DO Status: REG C Ordering Dr: Thai Hurst DO Date: 09/19/24 Location: [facility] Sex: F C Admitted: Reason [...] Date Dictated: 09/19/2425 Date Transcribed: 09/19/24 101 [employer] Supervisor: Signed Normal [facility] Pulmonary Visit Reporton Pulmonary Visit Report [facility] Pul[facility] Medicine of [address] [place] [address] OFFICE VISIT Date of Service: 08/23/24 MR#: [id number] Acct: [id number] Name: ALMA XIONG DANNIE Rep #: [id number] : 1950 Provider: Dr. Thai Hurst DO Age/Sex: 74/F Location: [facility] Status: Signed Assessment and Plan Assessment and [...] Reasons: SOB/Pneumonia Chief Complaint: 3 M FU Financial Recording Clerk Required: No Accompanied by: Self Allergies ciprofloxacin [...] fallen in (more content not included)... Normal [facility] Automated blood erythrocyte countOrdered By: Liam Engle on 08-07-2024 RBC (Bld) [#/Vol] 4.96 10*6/uL Normal 4.2-5.4 [facility] Comment on above: Performed By: #### L 100.0500 #### [facility] [address] [place], [place], [id number] Automated blood hematocrit ( percentage)Ordered By: Liam Engle on 08-07-2024 Hematocrit (Bld) [Volume fraction] 40.8 % Normal 37-47 [facility] Comment on above: Performed By: #### L 100.0500 #### [facility] [address] [place], [address] CBC-Complete Blood Cnt No Di ffon 08-07-2024 RDW SD 43.3 fl Normal 35.1-43.9 [facility] Comment on above: Performed By: #### L 100.0500 #### [facility] [address] [place], [address] Erythrocyte distribution wid th (RBC) [Ratio]Ordered By: Liam Engle on 08-07-2024 Erythrocyte distribution width (RBC) [Entitic vol] 43.3 fL 35.1-43.9 [facility] Erythrocyte distribution wid th ratioOrdered By: Liam Engle on 08-07-2024 Erythrocyte distribution width (RBC) [Ratio] 14.6 % Normal 11.6-14.6 [facility] Comment on above: Performed By: #### L 100.0500 #### [facility] [address] [place], [place], [phone] Hemoglobin measurementOrdere d By: Liam Engle on 08-07-2024 Hemoglobin (Bld) [Mass/Vol] 13.3 g/dL Normal 12.0-15.0 [facility] Comment on above: Performed By: #### L 100.0500 #### [facility] [address] [facility] [place], [place], [phone] MCV (mean corpuscular volume ) determinationOrdered By: Liam Engle on 08-07-2024 MCV (RBC) [Entitic vol] 82.3 fL Normal 81-99 [facility] Comment on above: Performed By: #### L 100.0500 #### [facility] [address] [facility] [place], [address] MR/POSTOP.ANEon 08-07-2024 MR/POSTOP.ANE [facility] Medical Records Department [address] [place] [address] Anesthesia Postop Eval I 08/07/24 1133 MR#: [id number] Acct: [id number] Name: ALMA XIONG Rep #: [id number] : 1950 74 From: Delaney Laura PCP: Dr. Steve Alexandre MD Status:REG SDC Y Race: C Location: [place] [address] Anesthesia: Postop Eval I Current Vital Signs [...] Delaney Marroquin Signature: Date CC: Signed Normal [facility] MR/PGBIJXBM1me 08-07-2024 MR/POSTOPAN2 [facility] Medical Records Department [address] [place] [address] Anesthesia Postop Eval II 08/07/24 1159 MR#: [id number] Acct: [id number] Name: ALMA XIONG Rep #: [id number] : 1950 74 From: Terry Tobar MD PCP: Dr. Steve Alexandre MD Status:REG SDC Y Race: C Location: [place] [address] Anesthesia Postop Eval I Sum Postop Eval Completion status Anesthesia document: Postop Eval 1 completed: Yes Anesthesia Postop Eval I Summary Anesthesia Postop Eval I Summary: Anesthesia Postop Eval I: Assessment Summary Airway patent Yes 08/07/24 11:33 INTERNATIONAL OPERATIONS MANAGER.CSIR Spontaneous unlabored Yes 08/07/24 11:33 INTERNATIONAL OPERATIONS MANAGER.CSIR respirations Mental status nausea No 08/07/24 11:33 INTERNATIONAL OPERATIONS MANAGER.CSIR Vomiting No 08/07/24 11:33 INTERNATIONAL OPERATIONS MANAGER.CSIR Anesthesia Postop Eval I: Fluid Summary Crystalloid volume administer 800 08/07/24 11:33 INTERNATIONAL OPERATIONS MANAGER.CSIR (ml) Colloids volume administered ( ml) Blood Product volume administered (ml) Total IV fluid infused 800 08/07/24 11:33 INTERNATIONAL OPERATIONS MANAGER.CSIR Anesthesia Postop Eval I: Summary Notes Anesthesia Complication No 08/07/24 11:33 INTERNATIONAL OPERATIONS MANAGER.CSIR Anesthesia Complication Comment: Post-operative progress note Anesthesia: Postop Eval II Evaluation Mental status: Awake Pain Level: 0 nausea: No Vomiting: No 08/07/24 1159 Date Terry Marroquin Signature: Date CC: Signed Normal [facility] Mean corpuscular hemoglobin (MCH) determinationOrdered By: Liam Engle on 08-07-2024 MCH (RBC) [Entitic mass] 26.8 pg Low 27.0-32.0 [facility] Comment on above: Performed By: #### L 100.0500 #### [facility] Laboratory [facility] [place] [address] [place], [address] Mean corpuscular hemoglobin concentration (MCHC) determinationOrdered By: Liam Engle on 08-07-2024 MCHC (RBC) [Mass/Vol] 32.6 g/dL Normal 32-36 [facility] Comment on above: Performed By: #### L 100.0500 #### [facility] [address] [place], [address] Mean platelet volume determi nationOrdered By: Liam Engle on 08-07-2024 Platelet mean volume (Bld) [Entitic vol] 10.9 fL Normal 6.2-12.0 [facility] Comment on above: Performed By: #### L 100.0500 #### [facility] [address] [place], [address] Operative Reporton 5 Operative Report [facility] Medical Records Department [address] [place] [address] Operative Report 08/07/24 1042 MR#: [id number] Acct: [id number] Name: ALMA XIONG Rep #: [id number] : 1950 74 From: Liam Engle MD PCP: Dr. Steve Alexandre MD Status:[facility] Location: [place] [address] Operative Report (Standard) Operative Information Date of Procedure: 08/07/24 Pre-Operative Diagnosis: Hypopharyngeal neoplasm Post-Operative Diagnosis: same Surgery/Procedure Performed: micro direct laryngoscopy with excision of hypopharyngeal lesion heel sprayer: No Type of Anesthesia: General RN Documented [...] was then placed in suspension on the [place] stand. The operating microscope was then brought [...] MD; Dr. Liam Engle MD Signed Normal [facility] Platelet countOrdered By: Diallo Engle on 08-07-2024 Platelets (Bld) [#/Vol] 255 10*3/uL Normal 150-450 [facility] Comment on above: Performed By: #### L 100.0500 #### [facility] [address] [place], [address] Surgery Specimen Level Tommy 08-07-2024 Surgery Specimen Level IV -------- Patient Age/Sex Location Account Attending Physician -------- ALMA XIONG 74/[place] [facility] [id number]. Liam Engle MD -------- Specimen: [id number] Received: 08/07/24 Status: JANEE Novak Num: [id number] Spec Type: LARYNX BX Subm Dr: Dr. [...] submitted in one cassette. . 08/08/2024 TC:5 CPT:76496 -------- Patient Age/Sex Location Account Attending Physician -------- ALMA XIONG 74/F [facility] [id number]. Liam Engle MD -------- Signed (signature on file) Dr. Preet Menard MD 08/09/24 1058 -------- Normal [facility] Comment on above: Performed By: #### L 100.0500 #### [facility] [address] [place], [place], [id number] White blood cell (WBC) count Ordered By: Liam Engle on 08-07-2024 WBC (Bld) [#/Vol] 6.8 10*3/uL Normal 4.4-11.0 [facility] Comment on above: Performed By: #### L 100.0500 #### [facility] [address] [facility] [place] [place], [address] MR/PATEstefani 08-04-2024 MR/PATZELDA [facility] Medical Records Department [address] [place] [address] PAT - Anesthesia 08/04/24 1543 MR#: [id number] Acct: [id number] Name: ALMA XIONG Rep #: [id number] : 1950 74 From: Mk Osborn MD PCP: Dr. 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: Anesthesia History - spar machine operator helper Hx Hospitalization No 08/04/24 09:56 Any Problems [...] take am of surgery PONV PONV - spar machine operator helper: PONV - spar machine operator helper Female Yes 08/04/24 09:56 HX of Motion [...] 06/14/24 11:09 Respiratory Assessment Respiratory Assessment - spar machine operator helper: Respiratory Tract Infection Hx - spar machine operator helper Hx Respiratory Tract Infection No 08/04/24 09:56 STOP Sleep Apnea STOP Sleep Apnea - spar machine operator helper: STOP Sleep Apnea - spar machine operator helper Hx Hypertension Yes: CONTROLLED WITH MED 08/04/24 [...] Tobacco Use History Tobacco Use History - spar machine operator helper: Tobacco Use History - spar machine operator helper Tobacco Use Smoking Status Former smoker 08/04/24 09:56 Hx Tobacco Use No 08/04/24 09:56 Years Smoking Packs Smoked per Day Smoking Cessation Date was No - quit smoking greater 08/04/24 09:56 within the last 15 years than 15 years ago Hx Smoking Cessation Date Hx Smoking Cessation No 08/04/24 09:56 Counseling Hematologic Medial History Hematologic Hx - spar machine operator helper: 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 Normal [facility] Basic Metabolic Profile (BMP )on 06-14-2024 BUN/CRE 19.2 RATIO Normal 10-20 [facility] Comment on above: Performed By: #### L 500.2500 #### [facility] [address] [place], [address] CA,Total 9.1 mg/dL Normal 8.5-10.1 [facility] Comment on above: Performed By: #### L 500.2500 #### [facility] [address] [place], [address] Chloride [Moles/Vol] 104 mmol/L Normal 98-107 [facility] Comment on above: Performed By: #### L 500.2500 #### [facility] [address] [facility] [address] CO2 [Moles/Vol] 27.0 mmol/L Normal 21.0-32.0 [facility] Comment on above: Performed By: #### L 500.2500 #### [facility] [address] [place], [address] Creatinine [Mass/Vol] 0.94 mg/dL Normal 0.55-1.02 [facility] Comment on above: Result Comment: The validity of the calculated GFR GFRAA in patients over 70 years has not been determined. Clinical correlation is essential. Performed By: #### L 500.2500 #### [facility] [address] [place], [address] EST GFR - AA 76 mL/min Normal >60 [facility] Comment on above: Result Comment: Afri can Latvian GFR Calc Performed By: #### L 500.2500 #### [facility] [address] [place], [address] GAP 7 Normal 5-15 [facility] Comment on above: Performed By: #### L 500.2500 #### [facility] [address] [place], [address] GFR/1.73 sq M.predicted among non-blacks MDRD (S/P/Bld) [Vol rate/Area] 63 mL/min/{1.73_m2} Normal >60 [facility] Comment on above: Result Comment: Non- GFR Calc Performed By: #### L 500.2500 #### [facility] [address] [place], [address] Glucose [Mass/Vol] 129 mg/dL High 74-106 [facility] Comment on above: Result Comment: Fast ing Glucose result greater than or equal to 126 mg/dL suggests DIABETES MELLITUS per A.D.A. criteria. Performed By: #### L 500.2500 #### [facility] [address] [place], [address] Potassium [Moles/Vol] 4.1 mmol/L Normal 3.5-5.1 [facility] Comment on above: Performed By: #### L 500.2500 #### [facility] [address] [place], [address] Sodium [Moles/Vol] 138 mmol/L Normal 136-145 [facility] Comment on above: Performed By: #### L 500.2500 #### [facility] [address] [place], [address] Urea nitrogen [Mass/Vol] 18 mg/dL Normal 7-18 [facility] Comment on above: Performed By: #### L 500.2500 #### [facility] [address] [place], [address] Internal Medicine Office Vis margarito 06-14-2024 Internal Medicine Office Visit [facility] [address] [place] [address] [address] [place] [address] OFFICE VISIT Date of Service: 06/14/24 MR#: [id number] Acct: [id number] Name: ALMA XIONG Rep #: [id number] : 1950 Provider: Dr. Steve lerma MD Age/Sex: 74/F Location[place] [facility] [place] Status: Signed Intake Vital Signs 03/10/24 10:29 [...] ENT EN (more content not included)... Normal [facility] EGD Reporton 05-04-2024 EGD Report [facility] Medical Records Department [address] [place] [address] EGD Report MR#: [id number] Acct: [id number] Name: ALMA XIONG Rep #: [id number] : 1950 74 From: Franco Tam DO PCP: Dr. tSeve Alexandre MD Status:REG [facility] [place] Patient Name: Alma Xiong [...] Palatal polyp Procedure Code(s): --- Professional --- 46651, Esophagogastroduodenoscopy, flexible, transoral; with biopsy, single or multiple CPT copyright 2021 [employer]. All rights reserved. The codes documented in this report are preliminary and upon janitor custodian review may be revised t (more content not included)... Normal [facility] H Pylori (initial)on H Pylori (initial) -------- -------- Patient Age/Sex Location Account Attending Physician -------- ALMA XIONG 74/F EN [id number] Franco Tam DO -------- Specimen: [id number] Received: 05/05/24 Status: JANEE Novak Num: [id number] Spec Type: IMMUNO Subm Dr: Franco Tam DO PHYSICIAN INSTITUTION [place] [address] SPECIMEN INFORMATION: Tissue Source: B- Gastric antrum biopsy Clinical Info: Esophageal stricture, eosinophilic esophagitis Specimen Number: [id number] CPT code: 76420 METHODOLOGY: Deparaffinized sections of prefer/formalin-fixed tissue or [...] developed and their performance characteristics determined by [facility]. They may not have been cleared or approved by the U.S. Food and Drug Administration. The FDA has determined that such clearance or approval is not necessary. The above immunohistochemical/dualISH markers are ordered and reviewed by the Pathologist. INTERPRETATION: B. Gastric antrum, biopsy: Negative for Helicobacter pylori organisms. 05/08/2024 Signed (signature on file) Dr. Preet Menard MD 05/09/24 1204 -------- Normal [facility] Comment on above: Performed By: #### L 100.0500 #### [facility] [address] [place] [place], [address] MR/POSTOP.Jasper 05-04-2024 MR/POSTOP.MERCEDEZ [facility] Medical Records Department [address] [place] [address] Anesthesia Postop Eval I 05/04/24 1229 MR#: [id number] Acct: [id number] Name: ALMA XIONG Rep #: [id number] : 1950 74 From: Brian Ivey PCP: Dr. Steve Alexandre MD Status:REG SDC Y Race: C Location: [place] [address] Anesthesia: Postop Eval I Current Vital Signs [...] 1 completed: Yes 05/04/24 1230 Date Brian Evanslyssa Signature: Date CC: Signed Normal [facility] MR/[id number] 05-04-2024 [facility] Medical Records Department [address] [place] [address] Anesthesia Postop Eval II 05/04/24 1227 MR#: [id number] Acct: [id number] Name: ALMA XIONG Rep #: [id number] : 1950 74 From: Yanick Arellano MD PCP: Dr. Steve Alexandre MD Status:REG [facility] [place] Race: C Location: [place] [address] Anesthesia Postop Eval I [facility] Anesthesia Postop Eval I Summary Anesthesia Postop [...] Yanick Marroquin Signature: Date CC: Signed Normal [facility] Special Stain Group Ion 10-0 Special Stain Group I -------- Patient Age/Sex Location Account Attending Physician -------- ALMA XIONG 74/F EN [id number] Franco Tam DO -------- Specimen: [id number] Received: 05/04/24 Status: JANEE Novak Num: [id number] Spec Type: EGD BIOPSY Subm Dr: Franco [...] Mild gastritis. See microscopic description and comment. 05/08/2024 COMMENT A. Increased number of eosinophils (more than 20 per high power field) are noted consistent with eosinophilic esophagitis. Alcian blue/PAS stain with matched control is used in the evaluation of the specimen. B. The results of immunohistochemistry for Helicobacter pylori will be reported separately ([id number]). Case has been reviewed in consultation with [...] Location Account Attending Physician -------- ALMA XIONG 74/ EN [id number] Franco Tam DO -------- Gastric antrum biopsy. The specimen consists of multiple irregular fragments of light celeste soft tissue that in aggregate measure 1.0 x 0.5 x 0.1 cm. The specimen is totally submitted in one cassette. 05/05/2024 TC:3 CPT:06679v8,34382 -------- Patient Age/Sex Location Account Attending Physician -------- ALMA XIONG 74/ EN [id number] Franco Tam DO -------- Signed (signature on file) Dr. Preet Menard MD 05/09/24 1210 -------- Normal [facility] Comment on above: Performed By: #### L 100.0500 #### [facility] [address] [place], [address] L5500.0550on 04-14-2024 BEEF 0.22 kU/L Abnormal Class 0/I [facility] Comment on above: Performed By: #### L 500.2500 #### [facility] [address] [place], [address] CHOCOLATE <0.10 Normal Class 0 [facility] Comment on above: Performed By: #### L 500.2500 #### [facility] [address] [place], [address] CODFISH <0.10 Normal Class 0 [facility] Comment on above: Performed By: #### L 500.2500 #### [facility] [address] [place], [address] COMMENT Comment Normal . [facility] Comment on above: Result Comment: Maggie paz of Specific IgE Class Description of Class ----- < 0.10 0 Negative 0.10 - 0.31 0/I Equivocal/Low 0.32 - 0.55 I Low 0.56 - 1.40 II Moderate 1.41 - 3.90 III High 3.91 - 19.00 IV Very High 19.01 - 100.00 V Very High >100.00 Very High Performed By: #### L 500.2500 #### [facility] [address] [place], [address] CORN <0.10 Normal Class 0 [facility] Comment on above: Performed By: #### L 500.2500 #### [facility] [address] [place], [address] EGG, WHOLE 0.21 kU/L Abnormal Class 0/I [facility] Comment on above: Result Comment: Perf ormed at: - [facility] [id number] Promotions Team Leader: Lata Smalls MD, Phone: [phone] Performed By: #### L 500.2500 #### [facility] [address] [place], [address] MILK (COW) 2.22 kU/L Abnormal Class III [facility] Comment on above: Performed By: #### L 500.2500 #### [facility] [address] [place], [address] MUSSELS <0.10 Normal Class 0 [facility] Comment on above: Performed By: #### L 500.2500 #### [facility] [address] [place], [address] PEANUT <0.10 Normal Class 0 [facility] Comment on above: Performed By: #### L 500.2500 #### [facility] [address] [place], [address] PORK <0.10 Normal Class 0 [facility] Comment on above: Performed By: #### L 500.2500 #### [facility] [address] [place], [address] SALMON <0.10 Normal Class 0 [facility] Comment on above: Performed By: #### L 500.2500 #### [facility] [address] [place], [address] SHRIMP <0.10 Normal Class 0 [facility] Comment on above: Performed By: #### L 500.2500 #### [facility] [address] [place], [address] SOYBEAN <0.10 Normal Class 0 [facility] Comment on above: Performed By: #### L 500.2500 #### [facility] [address] [place], [address] TUNA <0.10 Normal Class 0 [facility] Comment on above: Performed By: #### L 500.2500 #### [facility] [address] [place], [address] WHEAT 0.44 kU/L Abnormal Class I [facility] Comment on above: Performed By: #### L 500.2500 #### [facility] [address] [place], [address] CBC W/Diff, Automatedon 09-0 9-2023 Absolute Lymph 1.86 X10 3/uL Normal 0.83-4.51 [facility] Comment on above: Performed By: #### L 500.2500 #### [facility] [address] [place], [address] Absolute Neut 4.0 X10 3/uL Normal 2.0-7.7 [facility] Comment on above: Performed By: #### L 500.2500 #### [facility] [address] [place], [address] Basophils/100 WBC (Bld) 0.4 % Normal 0-1 [facility] Comment on above: Performed By: #### L 500.2500 #### [facility] [address] [place], [address] Eosinophils/100 WBC (Bld) 5.5 % High 0-5 [facility] Comment on above: Performed By: #### L 500.2500 #### [facility] [address] [place], [address] Erythrocyte distribution width (RBC) [Ratio] 14.6 % Normal 11.6-14.6 [facility] Comment on above: Performed By: #### L 500.2500 #### [facility] [address] [place], [address] Hematocrit (Bld) [Volume fraction] 44.8 % Normal 37-47 [facility] Comment on above: Performed By: #### L 500.2500 #### [facility] [address] [place], [address] Hemoglobin (Bld) [Mass/Vol] 14.5 g/dL Normal 12.0-15.0 [facility] Comment on above: Performed By: #### L 500.2500 #### [facility] [address] [place], [address] IG% 0.600 Normal 0.0-0.9 [facility] Comment on above: Result Comment: IG% - Immature Granulocytes (promyelocytes, myelocytes and metamyelocytes) > 1% indicates that a LEFT SHIFT is Present. Performed By: #### L 500.2500 #### [facility] [address] [place], [address] Lymphocytes/100 WBC (Bld) 27.8 % Normal 19-41 [facility] Comment on above: Performed By: #### L 500.2500 #### [facility] [address] [place], [address] MCH (RBC) [Entitic mass] 27.2 pg Normal 27.0-32.0 [facility] Comment on above: Performed By: #### L 500.2500 #### [facility] [address] [place], [address] MCHC (RBC) [Mass/Vol] 32.4 g/dL Normal 32-36 [facility] Comment on above: Performed By: #### L 500.2500 #### [facility] [address] [place], [address] MCV (RBC) [Entitic vol] 84.1 fL Normal 81-99 [facility] Comment on above: Performed By: #### L 500.2500 #### [facility] [address] [place], [address] Monocytes/100 WBC (Bld) 6.3 % Normal 0-10 [facility] Comment on above: Performed By: #### L 500.2500 #### [facility] [address] [place], [address] Neutrophils/100 WBC (Bld) 59.4 % Normal 47-70 [facility] Comment on above: Performed By: #### L 500.2500 #### [facility] [address] [place], [address] Nucleated RBC (Bld) [#/Vol] 0 10*3/uL Normal 0-5 [facility] Comment on above: Performed By: #### L 500.2500 #### [facility] [address] [place], [address] Platelet mean volume (Bld) [Entitic vol] 10.4 fL Normal 6.2-12.0 [facility] Comment on above: Performed By: #### L 500.2500 #### [facility] [address] [place], [address] Platelets (Bld) [#/Vol] 271 10*3/uL Normal 150-450 [facility] Comment on above: Performed By: #### L 500.2500 #### [facility] [address] [place], [address] RBC (Bld) [#/Vol] 5.33 10*6/uL Normal 4.2-5.4 [facility] Comment on above: Performed By: #### L 500.2500 #### [facility] [address] [place], [place], [address] RDW SD 44.2 fl High 35.1-43.9 [facility] Comment on above: Performed By: #### L 500.2500 #### [facility] [address] [place], [place], [address] WBC (Bld) [#/Vol] 6.7 10*3/uL Normal 4.4-11.0 [facility] Comment on above: Performed By: #### L 500.2500 #### [facility] [address] [place], [place], [id number] Gastroenterology Visit Repor ton 04-10-2024 Gastroenterology Visit Report [facility] [address] [place] [address] OFFICE VISIT Date of Service: 04/10/24 MR#: [id number] Acct: [id number] Name: ALMA XIONG Rep #: [id number] : 1950 Provider: CHEVY Bean Age/Sex: 74/F Location: [facility] Status: Signed Intake Vital Signs 03/10/24 [...] you fallen in the past year?: No PENDING SALE TO [facility] Medical History (Updated 04/01/24 @ 19:17 by [...] to the office today for establishment with [facility]. She has a hx of esophageal [...] Appearance: average body habitus and well nourished HENCT Head: normal to inspection Ears: hearing grossly [...] Plan ( (more content not included)... Normal [facility] Chest without Contraston Chest without Contrast [facility] Imaging Services [address] [place] [address] Chest without Contrast MR#: [id number] Acct: [id number] Name: ALMA XIONG Rep #: [id number] : 1950 F 74 From: Arcelia Wu MD PCP: Dr. Steve Alexandre MD Status: REG CLI Study: Chest without Contrast Date of Exam: 03/30/24 Exam# [id number] Ordering Dr: Steve Alexandre MD :[id number] EXAM: CT CHEST WITHOUT INTRAVENOUS CONTRAST CLINICAL [...] EDT , CC: Dr. Steve Alexandre MD [employer] Supervisor: Signed Normal [facility] Basic Metabolic Profile (BMP )on 03-10-2024 BUN/CRE 22.8 RATIO High 10-20 [facility] Comment on above: Performed By: #### L 500.2500 ####[facility] [address] [place], [place], [id number] CA,Total 9.3 mg/dL Normal 8.5-10.1 [facility] Comment on above: Performed By: #### L 500.2500 ####[facility] [address] [place], [place], [id number] Chloride [Moles/Vol] 103 mmol/L Normal 98-107 [facility] Comment on above: Performed By: #### L 500.2500 ####[facility] [address], [address] CO2 [Moles/Vol] 30.0 mmol/L Normal 21.0-32.0 [facility] Comment on above: Performed By: #### L 500.2500 ####[facility] [address] [place], [address] Creatinine [Mass/Vol] 1.01 mg/dL Normal 0.55-1.02 [facility] Comment on above: Result Comment: The validity of the calculated GFR GFRAA in patients over 70 years has not been determined. Clinical correlation is essential. Performed By: #### L 500.2500 ####[facility] [address] [place], [address] EST GFR - AA 69 mL/min Normal >60 [facility] Comment on above: Result Comment: Afri can Latvian GFR Calc Performed By: #### L 500.2500 ####[facility] [address] [place], [address] GAP 6 Normal 5-15 [facility] Comment on above: Performed By: #### L 500.2500 ####[facility] [address] [place], [address] GFR/1.73 sq M.predicted among non-blacks MDRD (S/P/Bld) [Vol rate/Area] 57 mL/min/{1.73_m2} Low >60 [facility] Comment on above: Result Comment: Non- GFR Calc Performed By: #### L 500.2500 ####[facility] [address] [place], [address] Glucose [Mass/Vol] 67 mg/dL Low 74-106 [facility] Comment on above: Performed By: #### L 500.2500 ####[facility] [address] [place], [address] Potassium [Moles/Vol] 3.4 mmol/L Low 3.5-5.1 [facility] Comment on above: Performed By: #### L 500.2500 ####[facility] [address] [place], [address] Sodium [Moles/Vol] 139 mmol/L Normal 136-145 [facility] Comment on above: Performed By: #### L 500.2500 ####[facility] [address] [place], [place], [address] Urea nitrogen [Mass/Vol] 23 mg/dL High 7-18 [facility] Comment on above: Performed By: #### L 500.2500 ####[facility] [address] [place], [place], [address] Internal Medicine Office Vis iton 03-10-2024 Internal Medicine Office Visit [facility] [address] [place], [place] [address] OFFICE VISIT Date of Service: 03/10/24 MR#: [id number] Acct: [id number] Name: ALMA XIONG Rep #: [id number] : 1950 Provider: Dr. 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 Normal [facility] ED Prov Noteon 12-04-2023 ED Prov Note [...] are negative. PAST HISTORY Past Medical History: @[facility]@ Past Surgical History: has no past surgical [...] times a day . Follow-up: [facility] [address] [facility] [address] [facility] [id number] In 3 days Final Impression: 1. Acute cystitis without hematuria 2. Right leg pain (Please note that portions of this note were completed with a voice recognition program. Efforts were made to edit the dictations but occasionally words are mis-transcribed.) Radha Boyd MD 12/04/23 1333 AUTHENTICATED BY RADHA BOYD ON 12/04/2023 13:33:10 Normal [facility] POC URINALYSIS DIPSTICK,AUTO - RALSon 12-04-2023 POC BILIRUBIN, URINE Moderate Abnormal Negative [facility] POC BLOOD, URINE Trace-intact Abnormal Negative [facility] POC GLUCOSE, URINE 250 mg/dL Abnormal Negative [facility] POC KETONES, URINE 15 mg/dL Abnormal Negative [facility] POC LEUKOCYTE ESTERASE, URINE Large Abnormal Negative [facility] POC NITRITE, URINE Positive Abnormal Negative [facility] POC PH, URINE 5.0 Normal 5.0-7.0 [facility] POC PROTEIN, URINE >=300 Abnormal Negative [facility] POC SPECIFIC GRAVITY <= Normal 1.005-1 .02 5 [facility] POC UROBILINOGEN >=8.0 Abnormal < 2.0 [facility] Absolute lymphocyte countOrd ered By: Steve Alexandre on 11-22-2023 Lymphocytes Auto (Unsp spec) [#/Vol] 1.24 10*3/uL 0.83-4.51 [facility] Automated lymphocyte count a s percentage of total leukocytesOrdered By: Steve Alexandre on 11-22-2023 Lymphocytes/100 WBC Auto (Unsp spec) 22.5 % 19-41 [facility] Basophil percentageOrdered B y: Steve Alexandre on 11-22-2023 Basophils/100 WBC (Bld) 0.5 % 0-1 [facility] Bilirubin [Mass/Vol] 0.60 mg/dL 0.20-1.00 [facility] Comment on above: For patients on eltr ombopag therapy, use of Dimension [place] TBIL is not recommended. Chloride [Moles/Vol] 104 mmol/L 98-107 [facility] Cholesterol [Mass/Vol] 198 mg/dL <200 [facility] Comment on above: <200 mg/dL Desirable 200-240 mg/dL Borderline >240 mg/dL High Risk Eosinophils/100 WBC (Bld) 7.1 % 0-5 [facility] Glucose [Mass/Vol] 127 mg/dL 74-106 [facility] Comment on above: Fasting Glucose resu lt greater than or equal to 126 mg/dL suggests DIABETES MELLITUS per A.D.A. criteria. Hemoglobin (Bld) [Mass/Vol] 14.1 g/dL 12.0-15.0 [facility] Monocytes/100 WBC (Bld) 6.4 % 0-10 [facility] Neutrophils (Bld) [#/Vol] 3.5 10*3/uL 2.0-7.7 [facility] Neutrophils/100 WBC (Bld) 62.8 % 47-70 [facility] Potassium [Moles/Vol] 3.9 mmol/L 3.5-5.1 [facility] Protein [Mass/Vol] 7.2 g/dL 6.4-8.2 [facility] Sodium [Moles/Vol] 137 mmol/L 136-145 [facility] Triglyceride [Mass/Vol] 163 mg/dL <199 [facility] Comment on above: The drugs N-Acetylcy steine and Metamizole may falsely depress this assay.Serum Triglycerides Reference Interval Normal <150 mg/dL Borderline high 150 - 199 mg/dL High 200 - 499 mg/dL Very High > or = 500 mg/dL WBC (Bld) [#/Vol] 5.5 10*3/uL 4.4-11.0 [facility] Determination of erythrocyte mean corpuscular volume (MCV)Ordered By: Steve Alexandre on 11-22-2023 MCV (RBC) [Entitic vol] 84.1 fL 81-99 [facility] Erythrocyte distribution wid th ratioOrdered By: Steve Alexandre on 11-22-2023 Erythrocyte distribution width (RBC) [Ratio] 14.4 % 11.6-14.6 [facility] Erythrocyte distribution wid th standard deviationOrdered By: [facility] Alexandre on 11-22-2023 Erythrocyte distribution width (RBC) [Entitic vol] 43.8 fL 35.1-43.9 [facility] Hematocrit Auto (Bld) [Volum e fraction]Ordered By: Steve Alexandre on 11-22-2023 Hematocrit (Bld) [Volume fraction] 42.9 % 37-47 [facility] Immature granulocytes/100 WB C Auto (Bld)Ordered By: raulbreckenridgedaniela Alexandre on 11-22-2023 Immature granulocytes/100 WBC (Bld) 0.700 % 0.0-0.9 [facility] Comment on above: IG% - Immature Granu locytes (promyelocytes, myelocytes and metamyelocytes) > 1% indicates that a LEFT SHIFT is Present. Laboratory - Chemistry and C hemistry - challengeOrdered By: Steve Alexandre on 11-22-2023 Albumin/Globulin [Mass ratio] 1.1 {ratio} 0.9-2.4 [facility] ALP [Catalytic activity/Vol] 52 U/L 45-117 [facility] ALT [Catalytic activity/Vol] 34 U/L 13-56 [facility] Cholesterol in HDL [Mass/Vol] 42 mg/dL >40 [facility] Comment on above: The drugs N-Acetylcy steine and Metamizole may falsely depress this assay. Reference Range HDL <40 mg/dL Low HDL Cholesterol HDL >or= 60 mg/dL High HDL Cholesterol Cholesterol in LDL [Mass/Vol] 123 mg/dL 0-130 [facility] CO2 [Moles/Vol] 29.0 mmol/L 21.0-32.0 [facility] Globulin (S) [Mass/Vol] 3.5 g/dL 2.2-4.2 [facility] Urea nitrogen/Creatinine [Mass ratio] 17.8 mg/mg 10-20 [facility] - Hematology and Cell countsOrdered By: Steve Alexandre on 11-22-2023 MCH (RBC) [Entitic mass] 27.6 pg 27.0-32.0 [facility] MCHC (RBC) [Mass/Vol] 32.9 g/dL 32-36 [facility] Nucleated RBC/100 WBC (Bld) [Ratio] 0 % 0-5 [facility] Platelet mean volume (Bld) [Entitic vol] 11.2 fL 6.2-12.0 [facility] Platelets (Bld) [#/Vol] 247 10*3/uL 150-450 [facility] No Panel InformationOrdered By: Steve Alexandre on 11-22-2023 Estimated GFR (MDRD) Amer 65 mL/min >60 [facility] Comment on above: GFR Calc Estimated GFR (MDRD) Non-Af Amer 54 mL/min >60 [facility] Comment on above: Non- GFR Calc Vitamin D 25-Hydroxy 58.4 ng/mL [facility] Comment on above: Vitamin D 25(OH) Sta tus Range Deficiency <20 ng/mL (50nmol/L) Insufficiency 20 - 30 ng/mL (50 - 75 nmol/L) Sufficiency 30 - 100 ng/mL (75 - 250 nmol/L) Toxicity >100 ng/mL (>250 nmol/L) VLDL Cholesterol 33 mg/dL 5-40 [facility] RBC Auto (Bld) [#/Vol]Ordere d By: Steve Alexandre on 11-22-2023 RBC (Bld) [#/Vol] 5.10 10*6/uL 4.2-5.4 [facility] Serum or plasma calcium nereida urement (mass/volume)Ordered By: Steve Alexandre on 11-22-2023 Calcium [Mass/Vol] 8.9 mg/dL 8.5-10.1 [facility] Serum or plasma creatinine m easurement (mass/volume)Ordered By: Steve Alexandre on 11-22-2023 Creatinine [Mass/Vol] 1.07 mg/dL 0.55-1.02 [facility] Comment on above: The validity of the calculated GFR & GFRAA in patients over 70 years has not been determined. Clinical correlation is essential. Serum or plasma thyroid stim ulating hormone (TSH) measurement (units/volume)Ordered By: Steve Alexandre on 11-22-2023 TSH Qn 7.78 uIU/mL 0.358-3.74 [facility] Serum or plasma urea nitroge n measurement (mass/volume)Ordered By: Steve Alexandre on 11-22-2023 Urea nitrogen [Mass/Vol] 19 mg/dL 7-18 [facility] Thin prep Papanicolaou smear with manual screeningOrdered By: Steve Alexandre on 11-22-2023 Thin prep Papanicolaou smear with manual screening 3.7 g/dL 3.2-5.0 [facility] Thin prep Papanicolaou smear with manual screening 20 U/L 15-37 [facility] Thin prep Papanicolaou smear with manual screening 4 5-15 [facility] PT Initial Evaluationon 04-03 PT Initial Evaluation No report was sent Normal [facility] Therapy Communicationon 04-03 Therapy Communication Message ALMA XIONG canceled today 04/26/23. Pt cancel d/t illness. Signatures Electronically signed by : Chelsey Velasquez, PT; Apr 26 2023 1:20PM EST (Author) Normal [facility] Basophil percentageOrdered B y: Steve Alexandre on 03-12-2023 Chloride [Moles/Vol] 105 mmol/L 98-107 [facility] Glucose [Mass/Vol] 132 mg/dL 74-106 [facility] Comment on above: Fasting Glucose resu lt greater than or equal to 126 mg/dL suggests DIABETES MELLITUS per A.D.A. criteria. Potassium [Moles/Vol] 3.9 mmol/L 3.5-5.1 [facility] Sodium [Moles/Vol] 140 mmol/L 136-145 [facility] Laboratory - Chemistry and C hemistry - challengeOrdered By: Steve Alexandre on 03-12-2023 CO2 [Moles/Vol] 30.0 mmol/L 21.0-32.0 [facility] Urea nitrogen/Creatinine [Mass ratio] 16.0 mg/mg 10-20 [facility] No Panel InformationOrdered By: Steve Alexandre on 03-12-2023 Estimated GFR (MDRD) Amer 66 mL/min >60 [facility] Comment on above: GFR Calc Estimated GFR (MDRD) Non-Af Amer 54 mL/min >60 [facility] Comment on above: Non- GFR Calc Serum or plasma calcium nereida urement (mass/volume)Ordered By: Steve Alexandre on 03-12-2023 Calcium [Mass/Vol] 9.3 mg/dL 8.5-10.1 [facility] Serum or plasma creatinine m easurement (mass/volume)Ordered By: Steve Alexandre on 03-12-2023 Creatinine [Mass/Vol] 1.06 mg/dL 0.55-1.02 [facility] Comment on above: The validity of the calculated GFR & GFRAA in patients over 70 years has not been determined. Clinical correlation is essential. Serum or plasma urea nitroge n measurement (mass/volume)Ordered By: Steve Alexandre on 03-12-2023 Urea nitrogen [Mass/Vol] 17 mg/dL 7-18 [facility] Thin prep Papanicolaou smear with manual screeningOrdered By: Steve Alexandre on 03-12-2023 Thin prep Papanicolaou smear with manual screening 5 5-15 [facility] Absolute lymphocyte countOrd ered By: Dr. Yepez on 09-15-2022 Lymphocytes Auto (Unsp spec) [#/Vol] 1.70 10*3/uL 0.83-4.51 [facility] Basophil percentageOrdered B y: Dr. Yepez on 09-15-2022 Basophils/100 WBC (Bld) 0.4 % 0-1 [facility] Chloride [Moles/Vol] 105 mmol/L 98-107 [facility] Cholesterol [Mass/Vol] 148 mg/dL <200 [facility] Comment on above: <200 mg/dL Desirable 200-240 mg/dL Borderline >240 mg/dL High Risk Eosinophils/100 WBC (Bld) 3.8 % 0-5 [facility] Glucose [Mass/Vol] 114 mg/dL 74-106 [facility] Comment on above: Fasting Glucose resu lt from 100 to 125 mg/dL suggests IMPAIRED HOMEOSTASIS per A.D.A. criteria. Neutrophils (Bld) [#/Vol] 2.9 10*3/uL 2.0-7.7 [facility] Neutrophils/100 WBC (Bld) 55.0 % 47-70 [facility] Potassium [Moles/Vol] 3.4 mmol/L 3.5-5.1 [facility] Sodium [Moles/Vol] 140 mmol/L 136-145 [facility] Triglyceride [Mass/Vol] 134 mg/dL <199 [facility] Comment on above: The drugs N-Acetylcy steine and Metamizole may falsely depress this assay.Serum Triglycerides Reference Interval Normal <150 mg/dL Borderline high 150 - 199 mg/dL High 200 - 499 mg/dL Very High > or = 500 mg/dL WBC (Bld) [#/Vol] 5.3 10*3/uL 4.4-11.0 [facility] Blood erythrocytes count (nu mber/volume)Ordered By: Dr. Yepez on 09-15-2022 RBC (Bld) [#/Vol] 4.79 10*6/uL 4.2-5.4 [facility] Blood hemoglobin measurement (mass/volume)Ordered By: Dr. Yepez on 09-15-2022 Hemoglobin (Bld) [Mass/Vol] 12.8 g/dL 12.0-15.0 [facility] Blood lymphocytes/100 leukoc ytesOrdered By: Dr. Yepez on 09-15-2022 Lymphocytes/100 WBC (Bld) 32.1 % 19-41 [facility] Blood monocytes/100 leukocyt esOrdered By: Dr. Yepez on 09-15-2022 Monocytes/100 WBC (Bld) 8.3 % 0-10 [facility] Blood platelet mean volumeOr dered By: Dr. Yepez on 09-15-2022 Platelet mean volume (Bld) [Entitic vol] 11.0 fL 6.2-12.0 [facility] Determination of erythrocyte mean corpuscular volume (MCV)Ordered By: Dr. Yepez on 09-15-2022 MCV (RBC) [Entitic vol] 82.9 fL 81-99 [facility] Hematocrit Auto (Bld) [Volum e fraction]Ordered By: Dr. Yepez on 09-15-2022 Hematocrit (Bld) [Volume fraction] 39.7 % 37-47 [facility] Laboratory - Chemistry and C hemistry - challengeOrdered By: Dr. Yepez on 09-15-2022 CO2 [Moles/Vol] 28.0 mmol/L 21.0-32.0 [facility] Urea nitrogen/Creatinine [Mass ratio] 15.0 mg/mg 10-20 [facility] - Hematology and Cell countsOrdered By: Dr. Yepez on 09-15-2022 Erythrocyte distribution width (RBC) [Entitic vol] 44.2 fL 35.1-43.9 [facility] Erythrocyte distribution width (RBC) [Ratio] 14.6 % 11.6-14.6 [facility] Immature granulocytes/100 WBC (Bld) 0.400 % 0.0-0.9 [facility] Comment on above: IG% - Immature Granu locytes (promyelocytes, myelocytes and metamyelocytes) > 1% indicates that a LEFT SHIFT is Present. MCH (RBC) [Entitic mass] 26.7 pg 27.0-32.0 [facility] Nucleated RBC/100 WBC (Bld) [Ratio] 0 % 0-5 [facility] MCHC Auto (RBC) [Mass/Vol]Or dered By: Dr. Yepez on 09-15-2022 MCHC (RBC) [Mass/Vol] 32.2 g/dL 32-36 [facility] No Panel InformationOrdered By: Dr. Yepez on 09-15-2022 Estimated Creatinine Clearance Calc 46.56 ml/min [facility] Estimated GFR (MDRD) Amer 77 mL/min >60 [facility] Comment on above: GFR Calc Estimated GFR (MDRD) Non-Af Amer 63 mL/min >60 [facility] Comment on above: Non- GFR Calc Thyroid Stimulating Hormone (TSH) 1.52 uIU/mL 0.358-3.74 [facility] Platelets bldOrdered By: Dr. Yepez on 09-15-2022 Platelets (Bld) [#/Vol] 231 10*3/uL 150-450 [facility] Serum or plasma calcium nereida urement (mass/volume)Ordered By: Dr. Yepez on 09-15-2022 Calcium [Mass/Vol] 8.9 mg/dL 8.5-10.1 [facility] Serum or plasma cholesterol in HDL measurement (mass/volume)Ordered By: Dr. Yepez on 09-15-2022 Cholesterol in HDL [Mass/Vol] 36 mg/dL >40 [facility] Comment on above: The drugs N-Acetylcy steine and Metamizole may falsely depress this assay. Reference Range HDL <40 mg/dL Low HDL Cholesterol HDL >or= 60 mg/dL High HDL Cholesterol Serum or plasma cholesterol in VLDL measurement (mass/volume)Ordered By: Dr. Yepez on 09-15-2022 Cholesterol in VLDL [Mass/Vol] 27 mg/dL 5-40 [facility] Serum or plasma creatinine m easurement (mass/volume)Ordered By: Dr. Yepez on 09-15-2022 Creatinine [Mass/Vol] 0.93 mg/dL 0.55-1.02 [facility] Comment on above: The validity of the calculated GFR & GFRAA in patients over 70 years has not been determined. Clinical correlation is essential. Serum or plasma low density lipoprotein (LDL) cholesterol measurement (mass/volume)Ordered By: Dr. Yepez on 09-15-2022 Cholesterol in LDL [Mass/Vol] 85 mg/dL 0-130 [facility] Serum or plasma urea nitroge n measurement (mass/volume)Ordered By: Dr. Yepez on 09-15-2022 Urea nitrogen [Mass/Vol] 14 mg/dL 7-18 [facility] Thin prep Papanicolaou smear with manual screeningOrdered By: Dr. Yepez on 09-15-2022 Thin prep Papanicolaou smear with manual screening 7 5-15 [facility] Absolute lymphocyte countOrd ered By: Dr. Alberts on 09-14-2022 Lymphocytes Auto (Unsp spec) [#/Vol] 1.55 10*3/uL 0.83-4.51 [facility] Basophil percentageOrdered B y: Dr. Alberts on 09-14-2022 Basophils/100 WBC (Bld) 0.4 % 0-1 [facility] Chloride [Moles/Vol] 105 mmol/L 98-107 [facility] Eosinophils/100 WBC (Bld) 5.8 % 0-5 [facility] Glucose [Mass/Vol] 115 mg/dL 74-106 [facility] Comment on above: Fasting Glucose resu lt from 100 to 125 mg/dL suggests IMPAIRED HOMEOSTASIS per A.D.A. criteria. Neutrophils (Bld) [#/Vol] 2.5 10*3/uL 2.0-7.7 [facility] Neutrophils/100 WBC (Bld) 53.3 % 47-70 [facility] Potassium [Moles/Vol] 3.7 mmol/L 3.5-5.1 [facility] Comment on above: Slight Hemolysis, Re sult may be falsely increased. Sodium [Moles/Vol] 140 mmol/L 136-145 [facility] WBC (Bld) [#/Vol] 4.7 10*3/uL 4.4-11.0 [facility] Blood erythrocytes count (nu mber/volume)Ordered By: Dr. Alberts on 09-14-2022 RBC (Bld) [#/Vol] 5.04 10*6/uL 4.2-5.4 [facility] Blood hemoglobin measurement (mass/volume)Ordered By: Dr. Alberts on 09-14-2022 Hemoglobin (Bld) [Mass/Vol] 14.0 g/dL 12.0-15.0 [facility] Blood lymphocytes/100 leukoc ytesOrdered By: Dr. Alberts on 09-14-2022 Lymphocytes/100 WBC (Bld) 33.1 % 19-41 [facility] Blood monocytes/100 leukocyt esOrdered By: Dr. Alberts on 09-14-2022 Monocytes/100 WBC (Bld) 6.8 % 0-10 [facility] Blood platelet mean volumeOr dered By: Dr. Alberts on 09-14-2022 Platelet mean volume (Bld) [Entitic vol] 10.7 fL 6.2-12.0 [facility] Determination of erythrocyte mean corpuscular volume (MCV)Ordered By: Dr. Alberts on 09-14-2022 MCV (RBC) [Entitic vol] 82.5 fL 81-99 [facility] Hematocrit Auto (Bld) [Volum e fraction]Ordered By: Dr. Alberts on 09-14-2022 Hematocrit (Bld) [Volume fraction] 41.6 % 37-47 [facility] INR in Blood by Coagulation assayOrdered By: Dr. Alberts on 09-14-2022 INR Coag (Bld) [Relative time] 1.3 {INR} [facility] Laboratory - Chemistry and C hemistry - challengeOrdered By: Dr. Alberts on 09-14-2022 CO2 [Moles/Vol] 30.0 mmol/L 21.0-32.0 [facility] Urea nitrogen/Creatinine [Mass ratio] 16.5 mg/mg 10-20 [facility] Laboratory - Chemistry and C hemistry - challengeOrdered By: Dr. Yepez on 09-14-2022 Magnesium [Mass/Vol] 2.4 mg/dL 1.6-2.6 [facility] Comment on above: Slight Hemolysis, Re sult may be falsely increased. Laboratory - CoagulationOrde red By: Dr. Alberts on 09-14-2022 aPTT Coag (Bld) [Time] 27.8 s 24.1-36.2 [facility] PT Coag (PPP) [Time] 15.4 s 11.7-14.9 [facility] Laboratory - Hematology and Cell countsOrdered By: Dr. Alberts on 09-14-2022 Erythrocyte distribution width (RBC) [Entitic vol] 42.7 fL 35.1-43.9 [facility] Erythrocyte distribution width (RBC) [Ratio] 14.4 % 11.6-14.6 [facility] Immature granulocytes/100 WBC (Bld) 0.600 % 0.0-0.9 [facility] Comment on above: IG% - Immature Granu locytes (promyelocytes, myelocytes and metamyelocytes) > 1% indicates that a LEFT SHIFT is Present. MCH (RBC) [Entitic mass] 27.8 pg 27.0-32.0 [facility] Nucleated RBC/100 WBC (Bld) [Ratio] 0 % 0-5 [facility] MCHC Auto (RBC) [Mass/Vol]Or dered By: Dr. Alberts on 09-14-2022 MCHC (RBC) [Mass/Vol] 33.7 g/dL 32-36 [facility] No Panel InformationOrdered By: Dr. Alberts on 09-14-2022 Estimated Creatinine Clearance Calc 50.52 ml/min [facility] Estimated GFR (MDRD) Amer 73 mL/min >60 [facility] Comment on above: GFR Calc Estimated GFR (MDRD) Non-Af Amer 60 mL/min >60 [facility] Comment on above: Non- GFR Calc Troponin I High Sensitivity 4 pg/mL 3.0-54.0 [facility] Comment on above: Please Note: New Gloria t Units and Gender Specific Reference Ranges. For more information see Policy Stat Procedure [place] High Sensitivity Troponin (TNIH) and attachments. Platelets bldOrdered By: Dr. Alberts on 09-14-2022 Platelets (Bld) [#/Vol] 214 10*3/uL 150-450 [facility] Serum or plasma calcium nereida urement (mass/volume)Ordered By: Dr. Alberts on 09-14-2022 Calcium [Mass/Vol] 9.1 mg/dL 8.5-10.1 [facility] Serum or plasma creatinine m easurement (mass/volume)Ordered By: Dr. Alberts on 09-14-2022 Creatinine [Mass/Vol] 0.97 mg/dL 0.55-1.02 [facility] Comment on above: The validity of the calculated GFR & GFRAA in patients over 70 years has not been determined. Clinical correlation is essential. Serum or plasma urea nitroge n measurement (mass/volume)Ordered By: Dr. Alberts on 09-14-2022 Urea nitrogen [Mass/Vol] 16 mg/dL 7-18 [facility] Thin prep Papanicolaou smear with manual screeningOrdered By: Dr. Alberts on 09-14-2022 Thin prep Papanicolaou smear with manual screening 5 5-15 [facility] Absolute lymphocyte countOrd ered By: Dr. Alexandre on 07-17-2022 Lymphocytes Auto (Unsp spec) [#/Vol] 1.41 10*3/uL 0.83-4.51 [facility] Basophil percentageOrdered B y: Dr. Alexandre on 07-17-2022 Basophils/100 WBC (Bld) 0.3 % 0-1 [facility] Bilirubin [Mass/Vol] 0.60 mg/dL 0.20-1.00 [facility] Comment on above: For patients on eltr ombopag therapy, use of Dimension [place] TBIL is not recommended. Chloride [Moles/Vol] 104 mmol/L 98-107 [facility] Cholesterol [Mass/Vol] 200 mg/dL <200 [facility] Comment on above: <200 mg/dL Desirable 200-240 mg/dL Borderline >240 mg/dL High Risk Eosinophils/100 WBC (Bld) 7.0 % 0-5 [facility] Glucose [Mass/Vol] 94 mg/dL 74-106 [facility] Neutrophils (Bld) [#/Vol] 3.7 10*3/uL 2.0-7.7 [facility] Neutrophils/100 WBC (Bld) 61.7 % 47-70 [facility] Potassium [Moles/Vol] 3.7 mmol/L 3.5-5.1 [facility] Protein [Mass/Vol] 7.4 g/dL 6.4-8.2 [facility] Sodium [Moles/Vol] 139 mmol/L 136-145 [facility] Triglyceride [Mass/Vol] 196 mg/dL <199 [facility] Comment on above: The drugs N-Acetylcy steine and Metamizole may falsely depress this assay.Serum Triglycerides Reference Interval Normal <150 mg/dL Borderline high 150 - 199 mg/dL High 200 - 499 mg/dL Very High > or = 500 mg/dL WBC (Bld) [#/Vol] 6.0 10*3/uL 4.4-11.0 [facility] Blood erythrocytes count (nu mber/volume)Ordered By: Dr. Alexandre on 07-17-2022 RBC (Bld) [#/Vol] 5.38 10*6/uL 4.2-5.4 [facility] Blood hemoglobin measurement (mass/volume)Ordered By: Dr. Alexandre on 07-17-2022 Hemoglobin (Bld) [Mass/Vol] 14.5 g/dL 12.0-15.0 [facility] Blood lymphocytes/100 leukoc ytesOrdered By: Dr. Alexandre on 07-17-2022 Lymphocytes/100 WBC (Bld) 23.7 % 19-41 [facility] Blood monocytes/100 leukocyt esOrdered By: Dr. Alexandre on 07-17-2022 Monocytes/100 WBC (Bld) 7.0 % 0-10 [facility] Blood platelet mean volumeOr dered By: Dr. Alexandre on 07-17-2022 Platelet mean volume (Bld) [Entitic vol] 11.8 fL 6.2-12.0 [facility] Determination of erythrocyte mean corpuscular volume (MCV)Ordered By: Dr. Alexandre on 07-17-2022 MCV (RBC) [Entitic vol] 83.8 fL 81-99 [facility] Hematocrit Auto (Bld) [Volum e fraction]Ordered By: Dr. Alexandre on 07-17-2022 Hematocrit (Bld) [Volume fraction] 45.1 % 37-47 [facility] Laboratory - Chemistry and C hemistry - challengeOrdered By: Dr. Alexandre on 07-17-2022 ALP [Catalytic activity/Vol] 52 U/L 45-117 [facility] ALT [Catalytic activity/Vol] 26 U/L 13-56 [facility] CO2 [Moles/Vol] 27.0 mmol/L 21.0-32.0 [facility] Globulin (S) [Mass/Vol] 3.5 g/dL 2.2-4.2 [facility] Urea nitrogen/Creatinine [Mass ratio] 17.6 mg/mg 10-20 [facility] Laboratory - Hematology and Cell countsOrdered By: Dr. Alexandre on 07-17-2022 Erythrocyte distribution width (RBC) [Entitic vol] 42.7 fL 35.1-43.9 [facility] Erythrocyte distribution width (RBC) [Ratio] 14.1 % 11.6-14.6 [facility] Immature granulocytes/100 WBC (Bld) 0.300 % 0.0-0.9 [facility] Comment on above: IG% - Immature Granu locytes (promyelocytes, myelocytes and metamyelocytes) > 1% indicates that a LEFT SHIFT is Present. MCH (RBC) [Entitic mass] 27.0 pg 27.0-32.0 [facility] Nucleated RBC/100 WBC (Bld) [Ratio] 0 % 0-5 [facility] MCHC Auto (RBC) [Mass/Vol]Or dered By: Dr. Alexandre on 07-17-2022 MCHC (RBC) [Mass/Vol] 32.2 g/dL 32-36 [facility] No Panel InformationOrdered By: Dr. Alexandre on 07-17-2022 Estimated GFR (MDRD) Amer 64 mL/min >60 [facility] Comment on above: GFR Calc Estimated GFR (MDRD) Non-Af Amer 53 mL/min >60 [facility] Comment on above: Non- GFR Calc Thyroid Stimulating Hormone (TSH) 1.81 uIU/mL 0.358-3.74 [facility] Platelets bldOrdered By: Dr. Alexandre on 07-17-2022 Platelets (Bld) [#/Vol] 268 10*3/uL 150-450 [facility] Serum or plasma albumin nereida urement (mass/volume)Ordered By: Dr. Alexandre on 07-17-2022 Albumin [Mass/Vol] 3.9 g/dL 3.2-5.0 [facility] Serum or plasma albumin/glob ulin mass ratioOrdered By: Dr. Alexandre on 07-17-2022 Albumin/Globulin [Mass ratio] 1.1 {ratio} 0.9-2.4 [facility] Serum or plasma calcium nereida urement (mass/volume)Ordered By: Dr. Alexandre on 07-17-2022 Calcium [Mass/Vol] 9.4 mg/dL 8.5-10.1 [facility] Serum or plasma cholesterol in HDL measurement (mass/volume)Ordered By: Dr. Alexandre on 07-17-2022 Cholesterol in HDL [Mass/Vol] 40 mg/dL >40 [facility] Comment on above: The drugs N-Acetylcy steine and Metamizole may falsely depress this assay. Reference Range HDL <40 mg/dL Low HDL Cholesterol HDL >or= 60 mg/dL High HDL Cholesterol Serum or plasma cholesterol in VLDL measurement (mass/volume)Ordered By: Dr. Alexandre on 07-17-2022 Cholesterol in VLDL [Mass/Vol] 39 mg/dL 5-40 [facility] Serum or plasma creatinine m easurement (mass/volume)Ordered By: Dr. Alexandre on 07-17-2022 Creatinine [Mass/Vol] 1.08 mg/dL 0.55-1.02 [facility] Comment on above: The validity of the calculated GFR & GFRAA in patients over 70 years has not been determined. Clinical correlation is essential. Serum or plasma low density lipoprotein (LDL) cholesterol measurement (mass/volume)Ordered By: Dr. Alexandre on 07-17-2022 Cholesterol in LDL [Mass/Vol] 121 mg/dL 0-130 [facility] Serum or plasma urea nitroge n measurement (mass/volume)Ordered By: Dr. Alexandre on 07-17-2022 Urea nitrogen [Mass/Vol] 19 mg/dL 7-18 [facility] Thin prep Papanicolaou smear with manual screeningOrdered By: Dr. Alexandre on 07-17-2022 Thin prep Papanicolaou smear with manual screening 15 U/L 15-37 [facility] Thin prep Papanicolaou smear with manual screening 8 5-15 [facility] Basophil percentageon 2021 Basophil percentage >100 SEEN /hpf 0-5 [facility] Work Phone: Bilirubin Test strip Ql (U)o n 04-20-2022 Bilirubin Ql (U) 6 mg/dL Negative [facility] Work Phone: Comment on above: COLOR OF URINE MAY A FFECT DIPSTICK RESULTS. Ketones Test strip Ql (U)on 04-20-2022 Ketones Ql (U) 5 mg/dl Negative [facility] Work Phone: Mucus LM Ql (Urine sed)on Mucus Ql (Urine sed) 0 SEEN /hpf [facility] Work Phone: Nitrite Test strip Ql (U)on 04-20-2022 Nitrite Ql (U) Positive Negative [facility] Work Phone: Protein Test strip Ql (U)on 04-20-2022 Protein Ql (U) 100 mg/dl Negative [facility] Work Phone: Squamous epithelial cells de tection in urine sediment by light microscopyon 04-20-2022 Epithelial cells.squamous LM Ql (Urine sed) 0-5 SEEN /hpf 5-10 [facility] Work Phone: Urine blood detectionon 04-02 RBC Ql (U) 50 /ul Negative [facility] Work Phone: RBC Ql (U) 0 SEEN /hpf 0-5 [facility] Work Phone: Urine clarityon 04-20-2022 Clarity (U) Cloudy Clear [facility] Work Phone: Urine color determinationon 04-20-2022 Color (U) SEE COMMENT BELOW Yellow [facility] Work Phone: Comment on above: Visual Urine Color: ORANGE Urine glucose detectionon Glucose Ql (U) Normal mg/dl Normal [facility] Work Phone: Urine leukocyte esterase det ection by dipstickon 04-20-2022 Leukocyte esterase Test strip Ql (U) 500 /ul Negative [facility] Work Phone: Urine pHon 04-20-2022 pH (U) 6.0 [pH] 5.0 - 8.0 [facility] Work Phone: Urine sediment bacteria coun t by microscopy (number/high power field)on 04-20-2022 Bacteria LM.HPF (Urine sed) [#/Area] 2 /[HPF] None Seen [facility] Work Phone: Urine specific gravity measu rementon 04-20-2022 Specific gravity (U) [Rel density] 1.020 1.002-1.03 0 [facility] Work Phone: Urobilinogen Auto test strip Ql (U)on 04-20-2022 Urobilinogen Ql (U) 12 mg/dl Normal [facility] [place] [place] Work Phone: Basophil percentageon 2021 Chloride [Moles/Vol] 104 mmol/L 98-[address] [facility] [address] [facility] [place] [place] Work Phone: Glucose [Mass/Vol] 98 mg/dL 74-106 [facility] [place] [place] Work Phone: Potassium [Moles/Vol] 4.1 mmol/L 3.5-5.[address] [facility] [place] [place] Work Phone: Comment on above: Slight Hemolysis, Re sult may be falsely increased. Sodium [Moles/Vol] 139 mmol/L 136-145 [facility] Work Phone: Laboratory - Chemistry and C hemistry - challengeon 04-08-2022 CO2 [Moles/Vol] 28.0 mmol/L 21.0-32.0 [facility] Work Phone: Urea nitrogen/Creatinine [Mass ratio] 18.8 mg/mg 10-20 [facility] Work Phone: No Panel Informationon 04-08 Estimated GFR (MDRD) Amer 74 mL/min >60 [facility] Work Phone: Comment on above: GFR Calc Estimated GFR (MDRD) Non-Af Amer 61 mL/min >60 [facility] Work Phone: Comment on above: Non- GFR Calc Serum or plasma calcium nereida urement (mass/volume)on 04-08-2022 Calcium [Mass/Vol] 9.3 mg/dL 8.5-10.1 [facility] Work Phone: Serum or plasma creatinine m easurement (mass/volume)on 04-08-2022 Creatinine [Mass/Vol] 0.96 mg/dL 0.55-1.02 [facility] Work Phone: Comment on above: The validity of the calculated GFR & GFRAA in patients over 70 years has not been determined. Clinical correlation is essential. Serum or plasma urea nitroge n measurement (mass/volume)on 04-08-2022 Urea nitrogen [Mass/Vol] 18 mg/dL 7-18 [facility] Work Phone: Thin prep Papanicolaou smear with manual screeningon 04-08-2022 Thin prep Papanicolaou smear with manual screening 7 5-15 [facility] Work Phone: XR Chest 2 Viewson 8 XR Chest 2 Views Exam Date/Time:06/17 15:20 ESTReason for Exam:chronic coughReportSTUDY:XR Chest 2 Views; 06/17/2018 3:20 pmINDICATION:chronic cough.COMPARISON:None.ACCESS ION NUMBER(S):[id number] KAYA CLINICIAN:Dave Rico:PA and lateral views of [...] pmSigned by: Dannie Caballero MD Technologist: AMILCAR [facility] C REACTIVE PROTEINon 018 C reactive protein (CRP) 7.2 mg/L Normal 0-10 [facility] Comment on above: Result Comment: Test ing performed at [place] [address] Performed By: #### E SR, CREACT ####[place] [address] ESRon 02-23-2018 Erythrocyte sedimentation rate 2 mm/h Normal [facility] Comment on above: Result Comment: Test ing performed at [place] [address] Performed By: #### E SR, CREACT ####[place] [address] PROGRESSon 02-23-2018 [facility] NOTES Normal [facility] Culture, urine Bacteria identified Cx Nom (U) Presumptive E. coli [facility] Work Phone: Vital Signs Date Time Vital Sign Value Performing Clinician Rony goode 01-31-2025 11:26-0400 Body temperature 97.8 [degF] Dr. Steve Alexandre MD Work Phone: [facility] 01-31-2025 11:26-0400 Diastolic blood pressure 50 mm[Hg] Dr. Steve Alexandre MD Work Phone: [facility] 01-31-2025 11:26-0400 Heart rate 63 /min Dr. Steve Alexandre MD Work Phone: [facility] 01-31-2025 11:26-0400 Respiratory rate 18 /min Dr. Steve Alexandre MD Work Phone: [facility] 01-31-2025 11:26-0400 SaO2% (BldA) [Mass fraction] 97 % Dr. Steve Alexandre MD Work Phone: [facility] 01-31-2025 11:26-0400 Systolic blood pressure 123 mm[Hg] Dr. Steve Alexandre MD Work Phone: [facility] 01-31-2025 00:56-0400 Inhaled oxygen flow rate 2 L/min Dr. Steve Alexandre MD Work Phone: [facility] 01-30-2025 17:49-0400 Body height 162.[address] Steve Alexandre MD Work Phone: [facility] 01-30-2025 17:49-0400 Body mass index (BMI) [Ratio] 33.1 kg/m2 Dr. Steve Alexandre MD Work Phone: [facility] 01-30-2025 17:49-0400 Body weight [address] Steve Alexandre MD Work Phone: [facility] 01-17-2025 07:24-0400 Body mass index (BMI) [Ratio] 33.1 kg/m2 Dr. Steve Alexandre MD Work Phone: [facility] 01-17-2025 07:24-0400 Body temperature 97.3 [degF] Dr. Steve Alexandre MD Work Phone: [facility] 01-17-2025 07:24-0400 Body weight 87.[address] Steve Alexandre MD Work Phone: [facility] 01-17-2025 07:24-0400 Diastolic blood pressure 60 mm[Hg] Dr. Steve Alexandre MD Work Phone: [facility] 01-17-2025 07:24-0400 Heart rate 74 /min Dr. Steve Alexandre MD Work Phone: [facility] 01-17-2025 07:24-0400 Respiratory rate 18 /min Dr. Steve Alexandre MD Work Phone: [facility] 01-17-2025 07:24-0400 SaO2% (BldA) [Mass fraction] 99 % Dr. Steve Alexandre MD Work Phone: [facility] 01-17-2025 07:24-0400 Systolic blood pressure 119 mm[Hg] Dr. Steve Alexandre MD Work Phone: [facility] 01-10-2025 12:51-0400 Body height 162.[address] Steve Alexandre MD Work Phone: [facility] 01-10-2025 12:51-0400 Body mass index (BMI) [Ratio] 33.6 kg/m2 Dr. Steve Alexandre MD Work Phone: [facility] 01-10-2025 12:51-0400 Body temperature 97.6 [degF] Dr. Steve Alexandre MD Work Phone: [facility] 01-10-2025 12:51-0400 Body weight 88.[address] Steve Alexandre MD Work Phone: [facility] 01-10-2025 12:51-0400 Diastolic blood pressure 80 mm[Hg] Dr. Steve Alexandre MD Work Phone: [facility] 01-10-2025 12:51-0400 Heart rate 91 /min Dr. Steve Alexandre MD Work Phone: [facility] 01-10-2025 12:51-0400 Respiratory rate 16 /min Dr. Steve Alexandre MD Work Phone: [facility] 01-10-2025 12:51-0400 SaO2% (BldA) [Mass fraction] 89 % Dr. Steve Alexandre MD Work Phone: [facility] 01-10-2025 12:51-0400 Systolic blood pressure 128 mm[Hg] Dr. Steve Alexandre MD Work Phone: [facility] 12-15-2024 10:29-0400 Body height 162.[address] Steve Alexandre MD Work Phone: [facility] 12-15-2024 10:29-0400 Body mass index (BMI) [Ratio] 32.5 kg/m2 Dr. Steve Alexandre MD Work Phone: [facility] 12-15-2024 10:29-0400 Body weight 86.[address] Steve Alexandre MD Work Phone: [facility] 11-15-2024 12:46-0400 Body mass index (BMI) [Ratio] 32.9 kg/m2 Dr. Steve Alexandre MD Work Phone: [facility] 11-15-2024 12:46-0400 Body temperature 97.3 [degF] Dr. Steve Alexandre MD Work Phone: [facility] 11-15-2024 12:46-0400 Body weight 87.[address] Steve Alexandre MD Work Phone: [facility] 11-15-2024 12:46-0400 Diastolic blood pressure 78 mm[Hg] Dr. Steve Alexandre MD Work Phone: [facility] 11-15-2024 12:46-0400 Heart rate 77 /min Dr. Steve Alexandre MD Work Phone: [facility] 11-15-2024 12:46-0400 Respiratory rate 20 /min Dr. Steve Alexandre MD Work Phone: [facility] 11-15-2024 12:46-0400 SaO2% (BldA) [Mass fraction] 98 % Dr. Steve Alexandre MD Work Phone: [facility] 11-15-2024 12:46-0400 Systolic blood pressure 128 mm[Hg] Dr. Steve Alexandre MD Work Phone: [facility] 11-03-2024 13:13-0400 Body height 162.[address] Steve Alexandre MD Work Phone: [facility] 11-03-2024 13:13-0400 Body mass index (BMI) [Ratio] 33.5 kg/m2 Dr. Steve Alexandre MD Work Phone: [facility] 11-03-2024 13:13-0400 Body temperature 97.2 [degF] Dr. Steve Alexandre MD Work Phone: [facility] 11-03-2024 13:13-0400 Body weight 88.[address] Steve Alexandre MD Work Phone: [facility] 11-03-2024 13:13-0400 Diastolic blood pressure 74 mm[Hg] Dr. Steve Alexandre MD Work Phone: [facility] 11-03-2024 13:13-0400 Heart rate 90 /min Dr. Steve Alexandre MD Work Phone: [facility] 11-03-2024 13:13-0400 Respiratory rate 16 /min Dr. Steve Alexandre MD Work Phone: [facility] 11-03-2024 13:13-0400 SaO2% (BldA) [Mass fraction] 94 % Dr. Steve Alexandre MD Work Phone: [facility] 11-03-2024 13:13-0400 Systolic blood pressure 118 mm[Hg] Dr. Steve Alexandre MD Work Phone: [facility] 09-22-2024 14:04-0500 Body mass index (BMI) [Ratio] 34.3 kg/m2 Dr. Steve Alexandre MD Work Phone: [facility] 09-22-2024 14:04-0500 Body weight 90.[address] Steve Alexandre MD Work Phone: [facility] 09-19-2024 09:17-0500 Body weight 86.[address] Steve Alexandre MD Work Phone: [facility] 09-19-2024 09:17-0500 Heart rate 89 /min Dr. Steve Alexandre MD Work Phone: [facility] 09-19-2024 09:17-0500 SaO2% (BldA) [Mass fraction] 97 % Dr. Steve Alexandre MD Work Phone: [facility] 08-23-2024 08:08-0500 Body mass index (BMI) [Ratio] 34 kg/m2 Dr. Steve Alexandre MD Work Phone: [facility] 08-23-2024 08:08-0500 Body temperature 97.4 [degF] Dr. Steve Alexandre MD Work Phone: [facility] 08-23-2024 08:08-0500 Body weight 89.[address] Steve Alexandre MD Work Phone: [facility] 08-23-2024 08:08-0500 Diastolic blood pressure 69 mm[Hg] Dr. Steve Alexandre MD Work Phone: [facility] 08-23-2024 08:08-0500 Heart rate 89 /min Dr. Steve Alexandre MD Work Phone: [facility] 08-23-2024 08:08-0500 Respiratory rate 18 /min Dr. Steve Alexandre MD Work Phone: [facility] 08-23-2024 08:08-0500 SaO2% (BldA) [Mass fraction] 95 % Dr. Steve Alexandre MD Work Phone: [facility] 08-23-2024 08:08-0500 Systolic blood pressure 140 mm[Hg] Dr. Steve Alexandre MD Work Phone: [facility] 08-07-2024 12:22-0500 Body temperature 98.1 [degF] Dr. Steve Alexandre MD Work Phone: [facility] 08-07-2024 12:22-0500 Diastolic blood pressure 68 mm[Hg] Dr. Steve Alexandre MD Work Phone: [facility] 08-07-2024 12:22-0500 Heart rate 67 /min Dr. Steve Alexandre MD Work Phone: [facility] 08-07-2024 12:22-0500 Respiratory rate 18 /min Dr. Steve Alexandre MD Work Phone: [facility] 08-07-2024 12:22-0500 SaO2% (BldA) [Mass fraction] 95 % Dr. Steve Alexandre MD Work Phone: [facility] 08-07-2024 12:22-0500 Systolic blood pressure 115 mm[Hg] Dr. Steve Alexandre MD Work Phone: [facility] 08-07-2024 09:05-0500 Body mass index (BMI) [Ratio] 34 kg/m2 Dr. Steve Alexandre MD Work Phone: [facility] 08-07-2024 09:05-0500 Body weight [address] Steve Alexandre MD Work Phone: [facility] 11-22-2023 10:17-0400 Body height 160.[address] Steve Alexandre Work Phone: [facility] 11-22-2023 10:17-0400 Body mass index (BMI) [Ratio] 34 kg/m2 Dr. Steve Alexandre Work Phone: [facility] 11-22-2023 10:17-0400 Body temperature 98.5 [degF] Dr. Steve Alexandre Work Phone: [facility] 11-22-2023 10:17-0400 Body weight 87.[address] Steve Alexandre Work Phone: [facility] 11-22-2023 10:17-0400 Diastolic blood pressure 80 mm[Hg] Dr. Stvee Alexandre Work Phone: [facility] 11-22-2023 10:17-0400 Heart rate 78 /min Dr. Steve Alexandre Work Phone: [facility] 11-22-2023 10:17-0400 Respiratory rate 16 /min Dr. Steve Alexandre Work Phone: [facility] 11-22-2023 10:17-0400 SaO2% (BldA) [Mass fraction] 97 % Dr. Steve Alexandre Work Phone: [facility] 11-22-2023 10:17-0400 Systolic blood pressure 122 mm[Hg] Dr. Steve Alexandre Work Phone: [facility] 03-12-2023 10:26-0400 Body height 160.[address] Steve Alexandre Work Phone: [facility] 03-12-2023 10:26-0400 Body mass index (BMI) [Ratio] 33.8 kg/m2 Dr. Steve Alexandre Work Phone: [facility] 03-12-2023 10:26-0400 Body temperature 97.5 [degF] Dr. Steve Alexandre Work Phone: [facility] 03-12-2023 10:26-0400 Body weight 86.[address] Steve Alexandre Work Phone: [facility] 03-12-2023 10:26-0400 Diastolic blood pressure 64 mm[Hg] Dr. Steve Alexandre Work Phone: [facility] 03-12-2023 10:26-0400 Heart rate 83 /min Dr. Steve Alexandre Work Phone: [facility] 03-12-2023 10:26-0400 Respiratory rate 16 /min Dr. Steve Alexandre Work Phone: [facility] 03-12-2023 10:26-0400 SaO2% (BldA) [Mass fraction] 99 % Dr. Steve Alexandre Work Phone: [facility] 03-12-2023 10:26-0400 Systolic blood pressure 110 mm[Hg] Dr. Steve Alexandre Work Phone: [facility] 09-15-2022 09:53-0500 Body temperature 97.9 [degF] Dr. Steve Alexandre Work Phone: [facility] 09-15-2022 09:53-0500 Diastolic blood pressure 46 mm[Hg] Dr. Steve Alexandre Work Phone: [facility] 09-15-2022 09:53-0500 Heart rate 73 /min Dr. Steve Alexandre Work Phone: [facility] 09-15-2022 09:53-0500 Respiratory rate 18 /min Dr. Steve Alexandre Work Phone: [facility] 09-15-2022 09:53-0500 SaO2% (BldA) [Mass fraction] 95 % Dr. Steve Alexandre Work Phone: [facility] 09-15-2022 09:53-0500 Systolic blood pressure 121 mm[Hg] Dr. Steve Alexandre Work Phone: [facility] 09-14-2022 17:17-0500 Body mass index (BMI) [Ratio] 33.1 kg/m2 Dr. Steve Alexandre Work Phone: [facility] 09-14-2022 12:22-0500 Body height 160.[address] Steve Alexandre Work Phone: [facility] 09-14-2022 12:22-0500 Body weight 84.[address] Steve Alexandre Work Phone: [facility] 09-14-2022 11:39-0500 Body temperature 98 [degF] Dr. Steve Alexandre Work Phone: [facility] 09-14-2022 11:39-0500 Diastolic blood pressure 63 mm[Hg] Dr. Steve Alexandre Work Phone: [facility] 09-14-2022 11:39-0500 Heart rate 82 /min Dr. Steve Alexandre Work Phone: [facility] 09-14-2022 11:39-0500 Respiratory rate 20 /min Dr. Steve Alexandre Work Phone: [facility] 09-14-2022 11:39-0500 SaO2% (BldA) [Mass fraction] 97 % Dr. Steve Alexandre Work Phone: [facility] 09-14-2022 11:39-0500 Systolic blood pressure 115 mm[Hg] Dr. Steve Alexandre Work Phone: [facility] 09-14-2022 10:03-0500 Body height 167.[address] Steve Alexandre Work Phone: [facility] 09-14-2022 10:03-0500 Body mass index (BMI) [Ratio] 31.1 kg/m2 Dr. Steve Alexandre Work Phone: [facility] 09-14-2022 10:03-0500 Body weight 87.[address] Steve Alexandre Work Phone: [facility] 07-17-2022 12:56-0500 Body temperature 97.5 [degF] Dr. Steve Alexandre Work Phone: [facility] 07-17-2022 12:56-0500 Body weight 84.[address] Steve Alexandre Work Phone: [facility] 07-17-2022 12:56-0500 Diastolic blood pressure 64 mm[Hg] Dr. Steve Alexandre Work Phone: [facility] 07-17-2022 12:56-0500 Heart rate 76 /min Dr. Steve Alexandre Work Phone: [facility] 07-17-2022 12:56-0500 Respiratory rate 16 /min Dr. Steve Alexandre Work Phone: [facility] 07-17-2022 12:56-0500 SaO2% (BldA) [Mass fraction] 98 % Dr. Steve Alexandre Work Phone: [facility] 07-17-2022 12:56-0500 Systolic blood pressure 104 mm[Hg] Dr. Steve Alexandre Work Phone: [facility] 04-20-2022 15:55-0400 Body height 160.[address] Steve Alexandre Work Phone: [facility] Work Phone: 04-20-2022 15:55-0400 Body mass index (BMI) [Ratio] 33.3 kg/m2 Dr. Steve Alexandre Work Phone: [facility] Work Phone: 04-20-2022 15:55-0400 Body temperature 97.5 [degF] Dr. Steve Alexandre Work Phone: [facility] Work Phone: 04-20-2022 15:55-0400 Body weight 85.[address] Steve Alexandre Work Phone: [facility] Work Phone: 04-20-2022 15:55-0400 Diastolic blood pressure 80 mm[Hg] Dr. Steve Alexandre Work Phone: [facility] Work Phone: 04-20-2022 15:55-0400 Heart rate 57 /min Dr. Steve Alexandre Work Phone: [facility] Work Phone: 04-20-2022 15:55-0400 Respiratory rate 16 /min Dr. Steve Alexandre Work Phone: [facility] Work Phone: 04-20-2022 15:55-0400 SaO2% (BldA) [Mass fraction] 91 % Dr. Steve Alexandre Work Phone: [facility] Work Phone: 04-20-2022 15:55-0400 Systolic blood pressure 122 mm[Hg] Dr. Steve Alexandre Work Phone: [facility] Work Phone: 04-08-2022 14:09-0400 Body mass index (BMI) [Ratio] 33.3 kg/m2 Dr. Steve Alexandre Work Phone: [facility] Work Phone: 04-08-2022 14:09-0400 Body temperature 96.6 [degF] Dr. Steev Alexandre Work Phone: [facility] Work Phone: 04-08-2022 14:09-0400 Body weight 85.[address] Steve Alexandre Work Phone: [facility] Work Phone: 04-08-2022 14:09-0400 Diastolic blood pressure 72 mm[Hg] Dr. Steve Alexandre Work Phone: [facility] Work Phone: 04-08-2022 14:09-0400 Heart rate 50 /min Dr. Steve Alexandre Work Phone: [facility] Work Phone: 04-08-2022 14:09-0400 Respiratory rate 18 /min Dr. Steve Alexandre Work Phone: [facility] Work Phone: 04-08-2022 14:09-0400 SaO2% (BldA) [Mass fraction] 97 % Dr. Steve Alexandre Work Phone: [facility] Work Phone: 04-08-2022 14:09-0400 Systolic blood pressure 114 mm[Hg] Dr. Steve Alexandre Work Phone: [facility] Work Phone: 01-01-2022 14:18-0400 Body mass index (BMI) [Ratio] 33.2 kg/m2 Dr. Steve Alexandre Work Phone: [facility] Work Phone: 01-01-2022 14:18-0400 Body temperature 97.9 [degF] Dr. Steve Alexandre Work Phone: [facility] Work Phone: 01-01-2022 14:18-0400 Body weight 84.[address] Steve Alexandre Work Phone: [facility] Work Phone: 01-01-2022 14:18-0400 Diastolic blood pressure 68 mm[Hg] Dr. Steve Alexandre Work Phone: [facility] Work Phone: 01-01-2022 14:18-0400 Heart rate 75 /min Dr. Steve Alexandre Work Phone: [facility] Work Phone: 01-01-2022 14:18-0400 Respiratory rate 16 /min Dr. Steve Alexandre Work Phone: [facility] Work Phone: 01-01-2022 14:18-0400 SaO2% (BldA) [Mass fraction] 98 % Dr. Steve Alexandre Work Phone: [facility] Work Phone: 01-01-2022 14:18-0400 Systolic blood pressure 114 mm[Hg] Dr. Steve Alexandre Work Phone: [facility] Work Phone: Encounters Encounter Date Encounter Type Care Provider Facility Start: 03-05-2025 ambulatory Dina Baker ty:[facility] Start: 03-02-2025 ambulatory [facility] Start: 03-02-2025 ambulatory Steve Baker ty:[facility] Start: 02-28-2025 End: 02-28-2025 ambulatory [facility] Start: 02-26-2025 End: 02-26-2025 ambulatory [facility] Start: 02-23-2025 End: 02-23-2025 ambulatory Otilia Cameron Facility[facility] Start: 02-21-2025 End: 02-21-2025 ambulatory [facility] Start: 02-16-2025 End: 02-16-2025 ambulatory [facility] Start: 02-12-2025 End: 02-12-2025 ambulatory [facility] Start: 02-09-2025 End: 02-09-2025 ambulatory [facility] Start: 02-05-2025 End: 02-05-2025 ambulatory [facility] Start: 01-31-2025 Non-patient / Non-visit Dr. Richmond Ricardo MD -[facility] Work Phone: Start: 01-30-2025 Non-patient / Non-visit Dr. Tom Birmingham DO -[facility] Work Phone: Start: 01-30-2025 End: 01-31-2025 ambulatory Richmond Ricardo Facility:[facility] Start: 01-30-2025 End: 01-31-2025 Evaluation and management of inpatient Dr. Richmond Ricardo MD -[facility] Work Phone: Start: 01-30-2025 End: 01-31-[address] Steve Alexandre MD Work Phone: -[facility] Start: 01-17-[address] Steve Alexandre MD Work Phone: [facility] Start: 01-17-2025 End: 01-17-2025 Patient encounter procedure JOHANNE Edmondson -[facility] Work Phone: Start: 01-17-2025 End: 01-17-[address] Steve Alexandre MD Work Phone: [facility] Work Phone: Start: 01-10-2025 End: 01-10-2025 Patient encounter procedure Ricci REECE -[facility] Work Phone: Start: 01-10-2025 End: 01-10-2025 Patient encounter status Ricci REECE [facility] Start: 01-10-2025 End: 01-10-[address] Steve Alexandre MD Work Phone: [facility] Work Phone: Start: 01-10-2025 Non-patient / Non-visit Dr. Thai Hurst DO -[facility] Start: 01-10-2025 End: 01-10-[address] Steve Alexandre MD Work Phone: [facility] Work Phone: Start: 01-10-2025 End: 01-10-2025 Patient encounter procedure JOHANNE Edmondson -Pulmonary Services/Neurology Work Phone: Start: 01-10-2025 End: 01-10-2025 ambulatory Dina Edmondson Facility:[facility] Start: 01-02-2025 End: 01-02-2025 ambulatory MATT SAL [facility] Start: 12-15-2024 End: 12-15-[address] Yordan Shen MD -[facility] Work Phone: Start: 12-15-2024 End: 12-15-[address] Steve Alexandre MD Work Phone: [facility] Work Phone: Start: 12-05-2024 End: 12-05-[address] Steve Alexandre MD Work Phone: [facility] Work Phone: Start: 12-05-2024 End: 12-05-[address] Steve Aleaxndre MD -Laboratory Work Phone: Start: 12-05-2024 End: 12-05-2024 ambulatory Steve Alexandre Facility:[facility] Start: 11-27-2024 End: 11-27-[address] Yordan Shen MD -[facility] Work Phone: Start: 11-27-2024 End: 11-27-2024 ambulatory Steve Alexandre Facility:[facility] Start: 11-21-2024 End: 11-21-2024 Patient encounter procedure Otilia REECE -[facility] Work Phone: Start: 11-21-2024 End: 11-21-[address] Steve Alexandre MD Work Phone: [facility] Work Phone: Start: 11-21-2024 End: 11-21-2024 ambulatory [facility] Facility:[facility] Start: 11-15-2024 End: 11-15-2024 Patient encounter procedure JOHANNE Edmondson -[facility] Work Phone: Start: 11-15-2024 End: 11-15-2024 ambulatory [facility] Facility:[facility] Start: 11-03-2024 End: 11-03-[address] Steve Alexandre MD -[facility] Work Phone: Start: 11-03-2024 End: 11-03-[address] Steve Alexandre MD Work Phone: [facility] Work Phone: Start: 11-03-2024 End: 11-03-2024 [facility] Start: 09-25-2024 ambulatory Thai Hurst Facility:[facility] Start: 09-25-2024 Non-patient / Non-visit Dr. Thai Hurst DO -[facility] Start: 09-22-2024 End: 09-22-[address] Yordan Shen MD -[facility] Work Phone: Start: 09-22-2024 End: 09-22-20[facility] Start: 09-19-2024 [facility] Start: 09-19-2024 Non-patient / Non-visit Dr. Kalyan Adler MD -[facility] Start: 09-19-2024 End: 09-19-[address] Thai Hurst DO -Pulmonary Services/Neurology Work Phone: Start: 09-19-2024 End: 09-19-2024 ambulatory Thai Hurst Facility:[facility] Start: 08-23-2024 End: 08-23-[address] Thai Hurst DO -[facility] Work Phone: Start: 08-23-2024 End: 08-23-2024 ambulatory Thai Hurst Facility:[facility] Start: 08-07-2024 End: 08-07-2024 Admission to same day surgery center Dr. Liam Engle MD -[facility] Start: 08-07-2024 End: 08-07-2024 ambulatory Liam Engle Facility:[facility] Start: 06-23-2024 ambulatory Otilia Solaresi ty:[facility] Start: 06-21-2024 End: 06-21-2024 ambulatory STEVE ALEXANRDE Facility:[facility] Start: 06-21-2024 End: 06-21-2024 Patient encounter procedure Panda Mcguire OD Work Phone: Optometry Comment on above: Regular astigmatism, bilateral (Primary Dx); Hyperopia, bilateral; Presbyopia; Combined forms of age-related cataract of both eyes; Choroidal nevus of both eyes; Vitreous floaters of both eyes Start: 06-14-2024 End: 06-14-2024 ambulatory Steve Alexandre Facility:[facility] Start: 06-14-2024 End: 06-14-2024 ambulatory Steve Desaie Facility:[facility] Start: 05-04-2024 End: 05-04-2024 ambulatory Franco Tam Facility:[facility] Start: 04-10-2024 End: 04-10-2024 ambulatory Otilia Cameron Facility:[facility] Start: 04-10-2024 End: 04-10-2024 ambulatory Otilia Cameron Facility:[facility] Start: 03-30-2024 End: 03-30-2024 ambulatory Steve Alexandre Facility:[facility] Start: 03-10-2024 End: 03-10-2024 ambulatory Efewfarhan Alexandre Facility:[facility] Start: 03-10-2024 End: 03-10-2024 ambulatory [facility] Facility:[facility] Start: 12-04-2023 End: 12-04-2023 [facility] Start: 11-22-2023 End: 11-22-[address] Steve Alexandre Work Phone: [facility] Work Phone: Start: 11-22-2023 End: 11-22-[address] Steve Alexandre Work Phone: [facility] Work Phone: Start: 03-12-2023 End: 03-12-[address] Steve Alexandre Work Phone: [facility] Work Phone: Start: 03-12-2023 End: 03-12-[address] Steve Alexandre Work Phone: [facility] Work Phone: Start: 09-15-2022 Non-patient / Non-visit Dr. Steve Alexandre Work Phone: [facility] Start: 09-14-2022 Non-patient / Non-visit Dr. Steve Alexandre Work Phone: [facility] Start: 09-14-2022 End: 09-15-2022 Evaluation and management of inpatient Dr. Steve Alexandre Work Phone: [facility]-Pro[facility] Unit Start: 09-14-2022 End: 09-15-[address] Steve Alexandre Work Phone: [facility] Work Phone: Start: 07-30-2022 End: 07-30-[address] Steve Alexandre Work Phone: [facility] Work Phone: Start: 07-30-2022 End: 07-30-[address] Steve Alexandre Work Phone: [facility] Start: 07-17-2022 End: 07-17-[address] Steve Alexandre Work Phone: [facility] Work Phone: Start: 07-17-2022 End: 07-17-[address] Steve Alexandre Work Phone: [facility] Start: 04-20-2022 End: 04-20-[address] Steve Alexandre Work Phone: [facility] Work Phone: Start: 04-20-2022 End: 04-20-[address] Steve Alexandre Work Phone: [facility] Start: 04-08-2022 End: 04-08-[address] Steve Alexandre Work Phone: [facility] Start: 01-01-2022 End: 01-01-[address] Steve Alexandre Work Phone: [facility] Start: [address] Steve Alexandre Work Phone: [facility] Start: 09-05-[address] Steve Alexandre Work Phone: [facility] Start: 06-17-2018 End: 06-18-2018 Patient encounter procedure Dave Fournier Facility:[facility] Start: 06-17-2018 Patient encounter procedure Facility:[id number] Start: 02-23-2018 Patient encounter MARLEY VASQUEZ [facility] Procedures Date Procedure Procedure Detail Performing Clinician [...] the productionof interferon gamma. Chemiluminescence immunoassaymethodologyPerformed at: [facility] [address] [id number] Director: Edin Prater PhD, Phone: [phone] Start: 11-21-2024 Vitamin D, 25-hydroxy measurement Dr. Julieth Alexandre MD Work Phone: Comment on above: Vitamin D StatusDeficiency: <20 ng/mL (5 0nmol/L)Insufficiency: 20-30 ng/mL (50-75 nmol/L)Sufficiency: 30-100 ng/mL (75-250 nmol/L)Toxicity: >100 ng/mL (>250 nmol/L) Start: 11-21-[address] Steve Alexnadre MD Work Phone: Start: 09-22-2024 Xray thoracic [...] EST Office Visit [facility] [address] [place] [address] Panda Mcguire II, OD [address] [place] [address] Eye exam/[facility] Comment on above: Eye exam/[facility] Start: 01-31-2025 Patient discharge [facility] Start: 01-30-2025 Following clinical p athway protocol [facility] Start: 01-30-2025 Ambulation therapy management [facility] Start: 01-30-2025 Application of device [facility] Start: 01-30-2025 Application of elast ic bandage [facility] Start: 01-30-2025 Assessment of risk o f venous thromboembolism [facility] Start: 01-30-2025 Catheterization of vein [facility] Start: 01-30-2025 Exercises [facility] Start: 01-30-2025 Incentive spirometry [facility] Start: 01-30-2025 Introduction of urin shruti catheter [facility] Start: 01-30-2025 Measuring intake and output [facility] Start: 01-30-2025 Neurovascular assessment [facility] Start: 01-30-2025 Patient education [facility] Start: 01-30-2025 Procedure discontinued [facility] Start: 01-30-2025 Provision of activit y privileges [facility] Start: 01-30-2025 Provision of overbed trapeze [facility] Start: 01-30-2025 Recommendation to co ntinue with treatment [facility] Start: 01-30-2025 Referral to occupati onal therapist [facility] Start: 01-30-2025 Referral to service [facility] Start: 01-30-2025 Vital signs measurements [facility] Start: 01-30-2025 Wound care [facility] Start: 01-30-2025 [facility] Start: 01-30-2025 Admission procedure [facility] Start: 01-30-2025 Consultation [facility] Start: 12-13-2024 Measurement of respi ratory function [facility] Start: 08-07-2024 Anes esoph thyrd lar ynx trach & lymph neck 1yr ANESTH NECK ORGAN 1YR/> [facility] Start: 08-07-2024 Largsc exc bola&/strp g cords/epigl mcrscp/tlscp LARYNSCOP W/TUMR EXC + SCOPE [facility] Start: 08-07-2024 Patient discharge [facility] Start: 08-07-2024 Ambulation without limitation [facility] Start: 08-07-2024 Elevation of head of bed [facility] Start: 08-07-2024 Medical regimen orde rs management [facility] Start: 08-07-2024 Medication education [facility] Start: 08-07-2024 Procedure discontinued [facility] Start: 08-07-2024 Taking patient vital signs [facility] Start: 08-07-2024 Vital signs measurements [facility] Start: 11-22-2023 [facility] Work Phone: Start: 08-02-2023 Advance Directive Discussion Advance Directive Discussion [facility] Start: 03-12-2023 Patient referral [facility] Work Phone: Start: 09-15-2022 Patient discharge [facility] Start: 09-14-2022 Following clinical p athway protocol [facility] Start: 09-14-2022 Ambulation without limitation [facility] Start: 09-14-2022 Assessment of risk o f venous thromboembolism [facility] Start: 09-14-2022 Cardiac monitoring [facility] Start: 09-14-2022 Catheterization of vein [facility] Start: 09-14-2022 Continuous pulse oximetry [facility] Start: 09-14-2022 Elevation of head of bed [facility] Start: 02-13-2023 Exercises [facility] Start: 09-14-[address] anned interventions [facility] Start: 09-14-2022 Insertion of cathete r into peripheral vein [facility] Start: 09-14-2022 Measuring intake and output [facility] Start: 09-14-2022 Notification of physician [facility] Start: 09-14-2022 Oxygen therapy [facility] Start: 09-14-2022 Providing care accor ding to standard [facility] Start: 09-14-2022 Referral to occupati onal therapist [facility] Start: 09-14-2022 Referral to service [facility] Start: 09-14-2022 Speech therapy assessment [facility] Start: 09-14-2022 Tobacco use cessatio n education [facility] Start: 09-14-2022 [facility] Start: 09-14-2022 Admission procedure [facility] Start: 09-14-2022 CT of head without contrast STROKE Brain/Head without Cont [facility] Start: 09-14-2022 CT Unspecified body region WO [facility] Start: 09-14-2022 Oxygen therapy [facility] Start: 09-14-2022 [facility] Start: 10-31-2021 Screening for malign ant neoplasm of colon [facility] Start: 09-06-2020 Screening for malign ant neoplasm of colon Colonoscopy [facility] Start: 2017 Screening for osteoporosis Bone Dens ity Screening [facility] Start: 03-17-2011 Lipid panel Lipid Screening [facility] Start: 03-25-2010 Diabetes Screening Diabetes Screenin g [facility] Start: 11-30-2008 Screening for malign ant neoplasm of breast Mammogram Screening [facility] Start: 1997 Screening for malign ant neoplasm of colon [facility] Start: 1971 Urine microalbumin profile DTa P,Tdap,Td Vaccine (1 - Tdap) [facility] Start: 1970 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 Disease Visit Annual PCP Team Chronic Disease Visit [facility] Start: 1970 Depression Screening Depression Scre ening [facility] CBC W Auto Different ial panel - Blood [facility] CT Chest WO contrast [facility] DXA Bone [Mass/Area] Bone density [facility] Measurement of respi ratory function [facility] Patient referral [facility] Work Phone: Vitamin D, 25-hydrox y measurement [facility] XR Spine Lumbar and Sacrum GE 4 Views [facility] Work Phone: Immunizations Immunization Date Immunization Notes Care Provider [facility] 05-21-2022 Influenza, high dose seasonal Dr. Steve Alexandre MD Work Phone: [facility] 05-21-2022 influenza, high dose seasonal, preservative-free Dr. Steve Alexandre Work Phone: [facility] 07-18-2021 CovIQ Elite (Moderna) Dr. Katie Alexandre Work Phone: [facility] 11-01-2020 CovIQ Elite (Moderna) Dr. Katie Alexandre Work Phone: [facility] 10-02-2020 Covid (Moderna) Dr. Katie Alexandre Work Phone: [facility] 05-02-[address] Steve Alexandre Work Phone: [facility] 05-22-2008 influenza virus vaccine, unspecified formulation Panda Mcguire II, OD Work Phone: [facility] Payers Date Payer Category Payer Self-pay [id number] 2021 Medicare [id number] 2018 Unknown 1950 Unknown [id number] 2.16.84 0.1.326360.3.579.2.717 1950 Unknown [id number] 2.16. 840.1.130404.3.579.2.356 1950 Unknown [id number] 2.16. 840.1.751430.3.579.2.902 1950 Unknown [id number] 2.16.8 40.1.572068.3.579.2.651 1950 Unknown [id number] 2.16.8 40.1.456815.3.579.2.651 1950 Unknown [id number] 2.16.8 40.1.868556.3.579.2.1242 1950 Unknown [id number] 2.16.8 40.1.469721.3.579.2.1242 1950 Unknown [id number] 2.16.8 40.1.680665.3.579.2.1242 1950 Unknown [id number] 2.16.8 40.1.031132.3.579.2.1242 1950 Unknown [id number] 2.16.8 40.1.893074.3.579.2.1242 1950 Unknown [id number] 2.16.8 40.1.169460.3.579.2.1242 1950 Unknown [id number] 2.16.8 40.1.995108.3.579.2.1242 1950 Unknown [id number] 2.16.8 40.1.453848.3.579.2.1242 1950 Unknown [id number] 2.16.8 40.1.391099.3.579.2.1243 Medicare [id number] Unknown [id number] Unknown [id number] Unknown ANTHEM [id number] Unknown [id number] 2.16.8 40.1.018167.3.579.2.462 Unknown [id number] 2.16.8 40.1.436666.3.579.2.462 Unknown [id number] 2.16.8 40.1.679347.3.579.2.462 Unknown [id number] 2.16.8 40.1.573427.3.579.2.462 Unknown [id number] 2.16.8 40.1.459270.3.579.2.462 Unknown [id number] 2.16.8 40.1.423700.3.579.2.462 Unknown [id number] 2.16.8 40.1.794935.3.579.2.462 Unknown [id number] 2.16.8 40.1.692721.3.579.2.462 Unknown [id number] 2.16.8 40.1.048016.3.579.2.462 Unknown [id number] 2.16.8 40.1.577646.3.579.2.462 Unknown [id number] 2.16.8 40.1.161467.3.579.2.462 Unknown [id number] 2.16.8 40.1.717316.3.579.2.462 Unknown [id number] 2.16.8 40.1.192824.3.579.2.462 Unknown [id number] 2.16.8 40.1.265024.3.579.2.462 Unknown [id number] 2.16.8 40.1.118246.3.579.2.462 Unknown [id number] 2.16.8 40.1.489656.3.579.2.462 Unknown [id number] 2.16.8 40.1.577866.3.579.2.462 Unknown [id number] 2.16.8 40.1.211064.3.579.2.462 Unknown [id number] 2.16.8 40.1.142144.3.579.2.462 Unknown [id number] 2.16.8 40.1.379518.3.579.2.462 Unknown [id number] 2.16.8 40.1.947568.3.579.2.462 Unknown [id number] 2.16.8 40.1.765461.3.579.2.462 Unknown [id number] 2.16.8 40.1.987653.3.579.2.462 Unknown [id number] 2.16.8 40.1.554990.3.579.2.462 Unknown [id number] 2.16.8 40.1.251845.3.579.2.462 Unknown [id number] 2.16.8 40.1.215474.3.579.2.462 Unknown [id number] 2.16.8 40.1.396580.3.579.2.462 Unknown [id number] 2.16.8 40.1.716701.3.579.2.462 Unknown [id number] 2.16.8 40.1.853332.3.579.2.462 Unknown [id number] 2.16.8 40.1.542659.3.579.2.462 Unknown [id number] 2.16.8 40.1.404721.3.579.2.462 Unknown [id number] 2.16.8 40.1.985006.3.579.2.462 Unknown [id number] 2.16.8 40.1.574198.3.579.2.462 Unknown [id number] 2.16.8 40.1.419489.3.579.2.462 Unknown [id number] 2.16.8 40.1.950275.3.579.2.462 Social History Date Type Detail Facility Start: 04-20-2022 End: 06-11-2023 Tobacco smoking status NHIS Unknown if ever smoked [facility] Start: 09-05-2019 Occasional [facility] Start: 09-05-2019 None [facility] Start: 09-05-2019 Spouse/ Signif icant Other [facility] Start: 1950 Sex Assigned At Female W [facility] Start: 02-13-2020 End: 01-04-2025 Tobacco smoking status NHIS Ex-smoker [facility] History of tobacco use Current smoker [facility] History of tobacco use Cigarette Smoker [facility] Start: 02-13-2020 End: 05-12-2023 Cigarettes smoked current (pack per day) - Reported 0.5 [facility] Start: 02-13-2020 Tobacco use and exposure Smokeless tobacco non-user [facility] Start: 06-21-2024 Alcoholic beverage intake Current drinker of alcohol (finding) [facility] Start: 05-12-2023 Tobacco use panel [place] National Score (1-100), lower number is lower risk 79 [facility] Start: 10-29-2008 Alcohol Comment 1-2 drinks per week. Caffeine: prefers decaf [facility] Start: 1950 Sex assigned at Not on file [facility] Start: 11-06-2024 End: 11-25-2024 Sex Female (finding) [facility] NEGATED: Highlighted row Not [facility] Medical Equipment Procedure Code Equipment Code Equipment [...] duct CLIP,MARIA E LOPEZ FDA Start: 09-18-2019 ([id number]) Coated knee femu r prosthesis ()[id number])[id number] EJU FDA Start: 01-30-2025 ([id number]) Coated knee tibi a prosthesis ()[id number] 1()[id number])CT [id number] FDA Start: 01-30-2025 Orthopaedic ceme nt, non-antimicrobial ()[id number])[id number] FDA Start: 01-30-2025 ([id number]) Polyethylene patella prosthesis ()[id number] 2D FDA Start: 01-30-2025 ([id number]) Tibial insert ()[id number] FDA Start: 01-30-2025 Goals Date Patient Goal Desired Activity /State Functional Status Date Assessment Result Facility 01-31-2025 Functional status Ambulates [facility] Work Phone: 09-15-2022 Functional status Bedrest [facility] Work Phone: Mental Status Date Assessment Result Facility 01-31-2025 Cognitive function Level Of Cons ciousness Awake;Alert;Appropriate;Follow s Commands [facility] Work Phone: 01-31-2025 Cognitive function Comprehension Ability Demonstrates ability to follow instructions/comprehend [facility] Work Phone: 01-30-2025 Cognitive function Voice/Name [facility] Work Phone: 08-07-2024 Cognitive function Voice/Name;Touch/Shaki ng [facility] Work Phone: 09-15-2022 Cognitive function Voice/Name [facility] Work Phone: 09-14-2022 Cognitive function Level Of Cons ciousness Awake;Alert;Appropriate;Follow s Commands [facility] Work Phone: Clinical Notes 09-14-2022 to 01-31-2025 Note Date & Type Note Facility 01-31-2025 Consult note [facility] 01-31-2025 Consult note Note Date/Time January 31, 2025 10:56am [facility] Medical Records Department [address] [place] [address] Counseling Note - Pharmacy 01/31/25 1055 MR#: [id number] Acct: [id number] Name: ALMA XIONG DANNIE Rep #:[id number] : 1950 74 From: Cynthia Stevens PCP: Dr. Steve Alexandre MD Status:A DM RANDOLPH Y Location: [place] [address] Pharmacy [facility] Counseling Pharmacy Service has performed discharge medication [...] _ Cynthia Stevens Cosigner Signature (if applicable): Date __ CC: ~ Signed [facility] Work Phone: 1(475) 935-425707-02-2025 Discharge summary Author Ty Maynard [facility] Note Date/Time January 31, 2025 9:42a m [facility] Medical Records Department [address] [place] [address] Instructions for Home/Discharge Instructions 01/31/25 0935 MR#: [id number] Acct: [id number] Name: ALMA XIONG Rep #:[id number] : [...] - Ty Maynard PA-C [Med Staff - [facility] Practice Prof] - 02/12/25 10:45 am Disposition Disposition (needs filled in before D/C Order can be placed): Home, Self Care 01/31/25 0942<Electronically signed by Ty REECE PA-C>Ty REECE PA-C CC: Dr. Tom Birmingham DO; Dr. Steve Alexandre MD; Dr. Matt Yu MD; Dr. Matt Lema MD ~ Signed [facility] Work Phone: 1(260) 255-606307-02-2025 Progress note Author [facility] Note Date/Time January 31, 2025 9:35a m [facility] Medical Records Department [address] [place] [address] Progress Note - Orthopedic 01/31/25930 MR#: [id number] Acct: [id number] Name: ALMA XIONG Rep #:[id number] : 1950 74 From: Ty REECE PA-C PCP: Dr. Steve Alexandre MD Status:A DM RANDOLPH Location: MS3 OS979-2 Subjective Subjective The patient was sitting in [...] No fracture site is evident. Reading Location: [place] [address] Physical Exam Narrative Vital signs stable and [...] would like her prescriptions E scribed to [facility] pharmacy. She has outpatient physical therapy established [...] all questionswere answered. I have reviewed the [place] Automated Rx Reporting System (OARRS) report for [...] Cosigner Signature (if applicable): CC: ~ Signed [facility] Work Phone: 1(321) 315-192207-02-2025 Progress note Author Richmond Ricardo [facility] Note Date/Time January 31, 2025 9:10a m [facility] Medical Records Department [address] [place] [address] Progress Note - Hospitalist 01/31/25 0724 MR#: [id number] Acct: [id number] Name: LAMA XIONG Rep #:[id number] : 1950 74 From: Richmond Ricardo MD PCP: Dr. Steve Alexandre MD Status:A DM RANDOLPH [facility] Reason for Visit Reason for Visit: Diagnoses [...] No fracture site is evident. Reading Location: [place] [address] Physical Exam Narrative GENERAL: cooperative HEENT: Atraumatic; [...] documentation, 35minutes Charges/Coding Visit Charges Inpatient E&M: 83680 Subs Hosp L2 01/31/25 0910 <Electronically signed by Richmond Ricardo MD> Cosigner Signature (if applicable): CC: ~ Signed [facility] Work Phone: 1(388) 324-534207-02-2025 Consult note [facility] Medical Records Department [address] [place] [address] Counseling Note - Pharmacy 01/31/25 1055 MR#: [id number] Acct: [id number] Name: ALMA XIONG Rep #:[id number] : 1950 74 From: Cynthia Stevens PCP: Dr. Steve Alexandre MD Status:A DM RANDOLPH Y Location: [place] [address] Pharmacy [facility] Counseling Pharmacy Service has performed discharge medication [...] Signature (if applicable): Date CC: ~ Signed [facility]07-02-2025 Discharge summary [facility] Medical Records Department [address] [place] [address] Instructions for Home/Discharge Instructions 01/31/25 0935 MR#: [id number] Acct: [id number] Name: ALMA XIONG Rep #:[id number] : [...] February 04, 2025) Additional Dressing/Incision Instructions:: Follow [facility] Post-op Instructions. Recommend getting up every [...] - Ty Maynard PA-C [Med Staff - [facility] Practice Prof] - 02/12/25 10:45 am Disposition Disposition (needs filled in before D/C Order can be placed): Home, Self Care 01/31/25 0942Rajudy REECE PA-C CC: Dr. Tom Birmingham DO; Dr. Steve Alexandre MD; Dr. Matt Yu MD; Dr. Matt Lema MD ~ Signed [facility]07-02-2025 Progress note [facility] Medical Records Department [address] [place] [address] Progress Note - Orthopedic 01/31/25 0931 MR#: [id number] Acct: [id number] Name: ALMA XIONG Rep #:[id number] : 1950 74 From: Ty REECE PA-C PCP: Dr. Steve Alexandre MD Status:A DM RANDOLPH Location: MS3 CN006-6 Subjective Subjective The patient was sitting in [...] No fracture site is evident. Reading Location: [facility] Physical Exam Narrative Vital signs stable and [...] would like her prescriptions E scribed to [facility] pharmacy. She has o utpatient physical therapy [...] all questionswere answered. I have reviewed the [place] Automated Rx Reporting System (OARRS) report for [...] Cosigner Signature (if applicable): CC: ~ Signed [facility]07-02-2025 Progress note [facility] Medical Records Department [address] [place] [address] Progress Note - Hospitalist 01/31/25 0724 MR#: [id number] Acct: [id number] Name: ALMA XIONG Rep #:[id number] : 1950 74 From: Richmond Ricardo MD PCP: Dr. Steve Alexandre MD Status:A DM RANDOLPH Location: [place] [address] Reason for Visit Reason for Visit: Diagnoses [...] No fracture site is evident. Reading Location: [place] [address] Physical Exam Narrative GENERAL: cooperative HEENT: Atraumatic; [...] documentation, 35minutes Charges/Coding Visit Charges Inpatient E&M: 28516 Subs Hosp L2 01/31/25 0910 Cosigner Signature (if applicable): CC: ~ Signed [facility]07-01-2025 Consult note Author Tom Birmingham [facility] Note Date/Time January 30, 2025 6:35p m [facility] Medical Records Department [address] [place] [address] Consultation - Hospitalist 01/30/25 1713 MR#: [id number] Acct: [id number] Name: ALMA XIONG Rep #:[id number] : 1950 74 From: Tom mayo DO PCP: Dr. Steve Alexandre MD Status:A DM RANDOLPH Location: [place] [address] Assessment & Plan Assessment/Plan (1) Status post right knee replacement: PLAN: Plan Patient is a 74-year-old female who presented [facility] on 01/30/2025 for planned right knee replacement. [...] is a 74 F who presented to [facility] on 01/30/2025 for planned right knee replacement. [...] any other acute concerns at this time. PENDING SALE TO [facility] Medical History Dietary restriction Burning with urination [...] No fracture site is evident. Reading Location: [place] [address] Charges/Coding Visit Charges Inpatient E&M: 06737 Subs Hosp L2 01/30/25 1835 <Electronically signed by Tom Birmingham DO> Cosigner Signature (if applicable): CC: Dr. Steve Alexandre MD; Dr. Matt Lema MD~ Signed [facility] Work Phone: 1(618) 711-917507-01-2025 Consult note Author Lior Reynaga [facility] Note Date/Time January 31, 2025 2:25p m [facility] Medical Records Department [address] [place] [address] Anesthesia Postop Eval II 01/30/25 1818 MR#: [id number] Acct: [id number] Name: ALMA XIONG DANNIE Rep #:[id number] : 1950 74 From: Lior Reynaga MD PCP: Dr. Steve Alexandre MD Status:A DM RANDOLPH Y Race: C Location: NE3 MS322 -1 Anesthesia Postop Eval I Sum Postop Eval Completion status Anesthesia document: Postop Eval 1 completed: Yes Anesthesia Postop Eval I Summary Anesthesia Postop Eval I Summary: Anesthesia Postop Eval I: Assessment Summary Airway patent Yes 01/30/25 16:05 INTERNATIONAL OPERATIONS MANAGER.ACAR Spontaneous unlabored Yes 01/30/25 16:05 INTERNATIONAL OPERATIONS MANAGER.ACAR respirations Mental status Awake 01/30/25 16:05 INTERNATIONAL OPERATIONS MANAGER.ACAR nausea No 01/30/25 16:05 INTERNATIONAL OPERATIONS MANAGER.ACAR Vomiting No 01/30/25 16:05 INTERNATIONAL OPERATIONS MANAGER.ACAR Anesthesia Postop Eval I: Fluid Summary Crystalloid volume administer 2,000 01/30/25 16:05 INTERNATIONAL OPERATIONS MANAGER.ACAR (ml) Colloids volume administered ( ml) Blood Product volume administered (ml) Total IV fluid infused 2,000 01/30/25 16:05 INTERNATIONAL OPERATIONS MANAGER.ACAR Anesthesia Postop Eval I: Summary Notes Anesthesia Complication No 01/30/25 16:05 INTERNATIONAL OPERATIONS MANAGER.ACAR Anesthesia Complication Comment: Post-operative progress note Anesthesia: Postop Eval II Evaluation Mental status: Awake and Calm Pain Level: 5 nausea: No Vomiting: No Complications Anesthesia Complication: No 01/30/25 8188 <Electronically signed by Lior Russell D> Date _ Lior Reynaga MD Cosigner Signature: Date CC: ~ Signed [facility] Work Phone: 1(914) 540-119207-01-2025 Consult note [facility] Medical Records Department [address] [place] [address] Consultation - Hospitalist 01/30/25 1713 MR#: [id number] Acct: [id number] Name: ALMA XIONG Rep #:[id number] : 1950 74 From: Tom mayo DO PCP: Dr. Steve Alexandre MD Status:A DM RANDOLPH Location: MS3 LE701-3 Assessment & Plan Assessment/Plan (1) Status post right knee replacement: PLAN: Plan Patient is a 74-year-old female who presented [facility] on 01/30/2025 for planned right knee replacement. [...] is a 74 F who presented to [facility] on 01/30/2025 for planned rightknee replacement. Medicine [...] any other acute concerns at this time. PENDING SALE TO [facility] Medical History Dietary restriction Burning with urination [...] No fracture site is evident. Reading Location: [place] [address] Charges/Coding Visit Charges Inpatient E&M: 94729 Subs Hosp L2 01/30/25 183 Cosigner Signature (if applicable): CC: Dr. Steve Alexandre MD; Dr. Matt Lema MD~ Signed [facility]07-01-2025 Consult note Author Caesaridris Das [facility] Note Date/Time January 30, 2025 4:05p m [facility] Medical Records Department [address] [place] [address] Anesthesia Postop Eval I 01/30/25 160 MR#: [id number] Acct: [id number] Name: ALMA XIONG Rep #:[id number] : 1950 74 From: Caesar albarado CRNA PCP: Dr. Steve Alexandre MD Status:A DM RANDOLPH Y Race: C Location: [place] [address] Anesthesia: Postop Eval I Current Vital Signs [...] CRNA Cosigner Signature: Date CC: ~ Signed [facility] Work Phone: 1(419) 691-481007-01-2025 Radiology Diagnostic study note [facility] Imaging Services [address] [place] [address] Knee 1 or 2 Views MR#: [id number] Acct: [id number] Name: ALMA XIONG Rep #: [id number] : 1950 F 74 From: Dat Hernandez MD PCP: Dr. Steve Alexandre MD Status: A DM RANDOLPH Study:Knee 1 or 2 Views Date of Exam: Exam# [id number] Ordering Dr: Cori Lema MD PROCEDURE: KNEE 1 OR 2 VIEWS 01/30/2025 REASON FOR EXAM: TKA TECHNIQUE: AP and lateral portable postoperative right knee COMPARISON: None provided. RAD/Knee 1 or 2 Views IMPRESSION: Overlying skin mario are seen. The patient is postoperative right total knee arthroplasty, with satisfactory alignment seen. No complication is noted. No fracture site is evident. Reading Location: [place] [address] CC: Dr. Steve Alexandre MD; Dr. Matt Lema MD ~ [employer] Supervisor: Signed [facility]07-01-2025 Consult note [facility] Medical Records Department [address] [place] [address] Anesthesia Postop Eval I 01/30/25 1604 MR#: [id number] Acct: [id number] Name: ALMA XIONG Rep #:[id number] : 1950 74 From: Caesar albarado INTERNATIONAL OPERATIONS MANAGER PCP: Dr. Steve Alexandre MD Status:A DM RANDOLPH Y Race: C Location: [place] [address] Anesthesia: Postop Eval I Current Vital Signs [...] Eval 1 completed: Yes 01/30/25 1605 ero INTERNATIONAL OPERATIONS MANAGER> Date _ Caesar Das INTERNATIONAL OPERATIONS MANAGER Cosigner Signature: Date CC: ~ Signed [facility]07-01-2025 History and physical note Author Sandra Whelan [facility] Note Date/Time January 30, 2025 2:00p m [facility] Medical Records Department [address] [place] [address] History & Physical Exam 01/19/25 1308 MR#: [id number] Acct: [id number] Name: ALMA XIONG Rep #:[id number] : 1950 74 From: Sandra REECE PCP: Dr. Steve Alexandre MD Status:[facility] Location: [place] [address] History and Physical History and Physical Patient Name: Alma MccraryloretoDOB: 1950 From: SANDRA WHELAN PA-C DATE OF [...] injuring knees Surgical Hx: Tubal Ligation - [facility] Cervical Fusion - [facility]. Dr. Canchola Lumpectomy - Surg. [facility]- RT BREAST Arthroscopy - (06/16/2006) RT KNEE, [facility], DR. MCCRARY Section - X3 LT Knee Arthroscopy Gallbladder - (2019) [facility] Knee Arthroscopy RT Anesthesia Complications: None Assistive Devices: Glasses Reviewed and updated. SOCIAL HISTORY: Social History: Marital: .Occupation: Retired.Work Status: Retired.Hand Dominance: Right-handed. Personal Habits: Cigarette Use: Former - 1 pack/day 5yrs.Smokeless Tobacco: Never Used Smokeless Tobacco.E-Cigarette Use: Never used.Alcohol: Occasionally.Drug Use: Denies Use.Enjoy Exercising: Never Exercises - Currently. Reviewed, no changes. VITALS: Ht: 63.5 Wt: 191lb Wt k.638 BMI: 33.3 BP: [...] MD; Dr. Matt Lema MD ~* Signed [facility] Work Phone: 1(876) 957-430107-01-2025 Consult note Author Lior Reynaga [facility] Note Date/Time January 30, 2025 12:37 pm [facility] Medical Records Department [address] [place] [address] Pre-Anesthesia Evaluation 01/30/25 1221 MR#: [id number] Acct: [id number] Name: ALMA XIONG Rep #:[id number] : 1950 74 From: Lior Reynaga MD PCP: Dr. Steve Alexandre MD Status:R EG SD Y Race: C Location: [place] [address] ASA Classification* ASA Classification ASA Classification: 3 [...] 01/30/25 TSH 3.630 uIU/mL (0.300-4.200) 11/03/24 13:45 0411/24 COAG PT 15.4 SECONDS (11.7-14.9) H 09/14/22 10:15 09/02 10/22 Pre-Assessment Diagnosis/Proposed Procedure Planned Operative Procedure(s): ROBOTIC ASSISTED RIGHT TOTAL KNEE ARTHROPLASTY Anesthesia History Anesthesia History - spar machine operator helper: Anesthesia History - spar machine operator helper Hx Hospitalization No 01/04/25 15:57 Any Problems [...] take am of surgery PONV PONV - spar machine operator helper: PONV - spar machine operator helper Female Yes 01/04/25 15:57 HX of Motion [...] 01/30/25 11:17 Respiratory Assessment Respiratory Assessment - spar machine operator helper: Respiratory Tract Infection Hx - spar machine operator helper Hx Respiratory Tract Infection No 01/04/25 15:57 STOP Sleep Apnea STOP Sleep Apnea - spar machine operator helper: STOP Sleep Apnea - spar machine operator helper Hx Hypertension Yes: CONTROLLED WITH MED 01/04/25 [...] Tobacco Use History Tobacco Use History - spar machine operator helper: Tobacco Use History - spar machine operator helper Tobacco Use Smoking Status Former smoker 01/04/25 15:57 Hx Tobacco Use No 01/04/25 15:57 Years Smoking Packs Smoked per Day Smoking Cessation Date was No - quit smoking greater 01/04/25 15:57 within the last 15 years than 15 years ago Hx Smoking Cessation Date Hx Smoking Cessation No 01/04/25 15:57 Counseling Hematologic Medial History Hematologic Hx - spar machine operator helper: 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 Steve Alexandre MD Status:R [place] [facility] [place] [address] History and Physical History and Physical Patient [...] injuring knees Surgical Hx: Tubal Ligation - [facility] Cervical Fusion - [facility] - ([facility]/16/2006) RT KNEE, [facility], DR. MCCRARY Section - X3 LT Knee Arthroscopy Gallbladder - (2019) [facility] Knee Arthroscopy RT Anesthesia Complications: None Assistive Devices: Glasses Reviewed and updated. SOCIAL HISTORY: Social History: Marital: .Occupation: Retired.Work Status: Retired.Hand Dominance: Right-handed. Personal Habits: Cigarette Use: Former - 1 pack/day 5yrs.Smokeless Tobacco: Never Used Smokeless Tobacco.E-Cigarette Use: Never used.Alcohol: Occasionally.Drug Use: Denies Use.Enjoy Exercising: NeverExercises - Currently. Reviewed, no changes. VITALS: Ht: 63.5 Wt: 191lb Wt k.638 BMI: 33.3 BP: [...] MD; Dr. Matt Lema MD ~* Signed [facility]07-01-2025 Consult note [facility] Medical Records Department [address] [place] [address] Pre-Anesthesia Evaluation 01/30/25 1221 MR#: [id number] Acct: [id number] Name: ALMA XIONG Rep #:[id number] : 1950 74 From: Lior Reynaga MD PCP: Dr. Steve Alexandre MD Status:R EG SDC Y Race: C Location: [place] [address] ASA Classification* ASA Classification ASA Classification: 3 [...] 01/30/25 TSH 3.630 uIU/mL (0.300-4.200) 11/03/24 13:45 0411/24 COAG PT 15.4 SECONDS (11.7-14.9) H 09/14/22 10:15 09/02 10/22 Pre-Assessment Diagnosis/Proposed Procedure Planned Operative Procedure(s): ROBOTIC ASSISTED RIGHT TOTAL KNEE ARTHROPLASTY Anesthesia History Anesthesia History - spar machine operator helper: Anesthesia History - spar machine operator helper Hx Hospitalization No 01/04/25 15:57 Any Problems [...] take am of surgery PONV PONV - spar machine operator helper: PONV - spar machine operator helper Female Yes 01/04/25 15:57 HX of Motion [...] 01/30/25 11:17 Respiratory Assessment Respiratory Assessment - spar machine operator helper: Respiratory Tract Infection Hx - spar machine operator helper Hx Respiratory Tract Infection No 01/04/25 15:57 STOP Sleep Apnea STOP Sleep Apnea - spar machine operator helper: STOP Sleep Apnea - spar machine operator helper Hx Hypertension Yes: CONTROLLED WITH MED 01/04/25 [...] Tobacco Use History Tobacco Use History - spar machine operator helper: Tobacco Use History - spar machine operator helper Tobacco Use Smoking Status Former smoker 01/04/25 15:57 Hx Tobacco Use No 01/04/25 15:57 Years Smoking Packs Smoked per Day Smoking Cessation Date was No - quit smoking greater 01/04/25 15:57 within the last 15 years than 15 years ago Hx Smoking Cessation Date Hx Smoking Cessation No 01/04/25 15:57 Counseling Hematologic Medial History Hematologic Hx - spar machine operator helper: 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 Hx of Blood Transfusion No 01/04/25 15:57 [...] 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 - spar machine operator helper: /Reproductive Hx- spar machine operator helper Hx Now No 01/04/25 15:57 Gestational Age (in weeks): EDC: Hx Hx Para Hx Section SAB No 01/04/25 15:57 Active Medications Active Medications: Current Medications Generic Name Dose Route Start Last Admin Trade Name Davina PRN Reason Stop Dose Admin Acetaminophen 1,000 [...] ROM 01/30/25 1237 D> Date _ Lior Reynaga MD [facility] Signature: Date CC: ~ Signed [facility]06-20-2025 [facility] Medical Records Department [address] [place] [address] History Physical Exam 01/19/25 1308 MR#: [id number] Acct: [id number] Name: ALMA XIONG Rep #: [id number] : 1950 74 From: Sandra REECE PCP: Dr. Steve Alexandre MD Status:[facility] Location: [place] [address] History and Physical History and Physical Patient Name: Alma MccraryloretoDOB: 1950 From: SANDRA WHELAN PA-C DATE OF [...] injuring knees Surgical Hx: Tubal Ligation - [facility] Cervical Fusion - [facility]. Dr. Canchola Lumpectomy - Surg. [facility]- RT BREAST Arthroscopy - (06/16/2006) RT KNEE, [facility], DR. MCCRARY Section - X3 LT Knee Arthroscopy Gallbladder - (2019) [facility] Knee Arthroscopy RT Anesthesia Complications: None Assistive Devices: Glasses Reviewed and updated. SOCIAL HISTORY: Social History: Marital: .Occupation: Retired.Work Status: Retired.Hand Dominance: Right-handed. Personal Habits: Cigarette Use: Former - 1 pack/day 5yrs.Smokeless Tobacco: Never Used Smokeless Tobacco.E-Cigarette Use: Never used.Alcohol: Occasionally.Drug Use: Denies Use.Enjoy Exercising: Never Exercises - Currently. Reviewed, no changes. VITALS: Ht: 63.5 Wt: 191lb Wt k.638 BMI: 33.3 BP: 130/70 Pulse: 67 Resp: 19 T: 97.5 T: 36.4C Pain Level: 9/10 O2SatR: 96 ALLERGIES: No Known Drug Allergy MEDICATIONS: Paxil 20 mg 1 tab po bid, Synthroid 125 mcg 1 po qday, Indapamide 1.25 mg 1 tab po daily, Atenolol (more content not included)...[facility]04-04-2025 Evaluation note* Diagnosis Onset Date Resolution Status [...] 15, 2024 10:28am Thoracic radiculopathy acute Ma 2024 10:28am Pre-op evaluation acute January 102024 12:42pm Cough acute January 17 9:16am Shortness of breath chronic January 17, 2025 9:16am Status post right knee replacement acute January 30, 2025 3 :14pm [facility] Work Phone: 1(344) 594-694202-21-2025 Evaluation note* Diagnosis Onset Date Resolution Status [...] Thoracic radiculopathy acute Ma y 2024 10:28am [facility] Work Phone: [phone] Evaluation note* Diagnosis Onset Date Resolution Status [...] of breath chronic January 17, 2025 9:16am [facility] Work Phone: [phone]) [phone] Evaluation note* Diagnosis Onset Date Resolution Status [...] of breath chronic January 17, 2025 9:16am [facility] Work Phone: 1(404) 574-845001-22-2025 Evaluation note* Diagnosis Onset Date Resolution Status Admit Date Shortness of breath chronic Augua ry 2024 11:10am T12 compression fracture acute [...] of breath chronic November 03, 2024 1:08pm [facility] Work Phone: 1(305) 586-352501-22-2025 Evaluation note* Diagnosis Onset Date Resolution Status [...] Eosinophilic esophagitis chronic November 21, 2024 2:04pm [facility] Work Phone: 1(124) 854-899501-06-2025 [facility] Medical Records Department [address] [place] [address] Discharge Summary 08/07/24 1040 MR#: [id number] Acct: [id number] Name: ALMA XIONG Rep #: [id number] : 1950 74 From: Liam Engle MD PCP: Dr. Steve Alexandre MD Status:[facility] Location: [place] [address] Providers Primary Care Physician: Dr. Steve Alexandre [...] Care Provider: Steve Alexandre Instructions Print Language: Greek Discharge Orders/Prescriptions Prescriptions: No Action cholecalciferol (vitamin [...] Steve Alexandre MD; Dr. Liam Engle MD [facility] Instructions* Patient Instructions* Panda Mcguire II, [...] of its relevant components. [facility]-2024 NoteHNO ID: [id number] Author: PANDA MCGUIRE II, OD Service: ? Author Type: CALIBRATION SPECIALIST Type: Progress Notes Filed: 06/21/2024 14:27 Note [...] and agree with all of its relevant components.[facility]11-20-2024 History of Present illness Narrative* Panda Mcguire [...] of its relevant components. documented in this encounterSum[facility]10-03-2024 [facility] Medical Records Department [address] [place] [address] [place] [address] History Physical Exam 05/04/24 1039 MR#: [id number] Acct: [id number] Name: ALMA XIONG Rep #: [id number] : 1950 74 From: Franco Friend PCP: Dr. Steve Alexandre MD Status:[facility] Location: [place] [address] History and Physical Date of Admission: 05/04/24 ALMA XIONG, is a 74 F who presents to the office today for establishment with [facility]. She has a hx of esophageal [...] Appearance: average body habitus and well nourished [facility] Head: normal to inspection Ears: hearing [...] CC: Dr. Steve Alexandre MD; Franco Tam, DO [facility] Yepez [facility] September 15, 2022 11:11am Note Date/Time September 15, 2022 11:11am [facility] Medical Records Department [address] [place] [address] Discharge Summary 09/15/22 1107 MR#: [id number] Acct: [id number] Name: ALMA XIONG Rep #:[id number] : 1950 72 From: Abraham Davenport PCP: Dr. Steve Alexandre MD Status:[facility] Location: [place] [address]- Providers Date of Admission: 09/14/22 Date of [...] tablet 40 mg PO DAILY #90 tabs 06/02/22 amitriptyline 25 mg tablet 25 mg PO [...] % (Auto) 55.0, Lymph % (Auto) 32.1, [place] % (Auto) 8.3, Eos % (Auto) 3.8, [...] Self Care Charges/Coding Visit Charges Inpatient E&M: 58188 Disch Hosp >30min 09/15/22 1111 <Electronically signed by Abraham Yepez MD> Cosigner Signature (if applicable): CC: Dr. Steve Alexandre MD; Dr. Abraham Yepez MD~ Signed [facility] Work Phone: 1(854) 640-905402-14-[address] Yepez [facility] September 15, 2022 11:06am Note Date/Time September 15, 2022 11:03am [facility] Medical Records Department [address] [place] [address] Instructions for Home/Discharge Instructions 09/15/22 1001 MR#: [id number] Acct: [id number] Name: ALMA XIONG Rep #:[id number] : [...] CC: Dr. Steve Alexandre MD ~ Signed [facility] Work Phone: 1(786) 451-626202-13-[address] Alberts [facility] September 14, 2022 4:13pm Note Date/Time September 14, 2022 10:24am [facility] Medical Records Department [address] [place] [address] Emergency Department Summary 09/14/22 MR#: [id number] Acct: [id number] Name: ALMA XIONG Rep #:[id number] : 1950 72 From: Km Alberts DO PCP: Dr. Steve Alexandre MD Status:A [facility] Location: [place] [address] HPI History of Present Illness Chief Complaint: [...] % (Auto) 53.3 Lymph % (Auto) 33.1 [place] % (Auto) 6.8 Eos % (Auto) 5.8 [...] branch block Disposition Disposition: Acute Care Hospital [facility] What to do if you have Problems For any increased pain, shortness of breath, bleeding, nausea or vomiting, chestpain, or any unexpected problems, contact your Primary Care Provider. Call [facility] ([phone]) or report to the closest Emergency Room. Call 911 if necessary. 09/14/22 1613 <Electronically signed by Km Alberts DO> Cosigner Signature (if applicable): CC: Dr. Steve Alexandre MD ~ Signed [facility] Work Phone: [phone]) 307-664502-13-2023 History and physical note Author Dr. Yepez [facility] September 14, 2022 3:44pm Note Date/Time September 14, 2022 11:38am [facility] Medical Records Department [address] [place] [address] H&P Exam - Hospitalist 09/14/22 1137 MR#: [id number] Acct: [id number] Name: ALMA XIONG Rep #:[id number] : 1950 72 From: Abraham Davenport PCP: Dr. Steve Alexandre MD Status:A [facility] Location: [place] [address] HPI - General General Date of Admission: [...] the patient. LKW last night. Recommended admission. PENDING SALE TO [facility] Medical History (Updated 09/14/22 @ 11:17 by [...] % (Auto) 53.3, Lymph % (Auto) 33.1, [place] % (Auto) 6.8, Eos % (Auto) 5.8 [...] 11:05 EST Reading Location ID and State: [facility] / [place] , Service support , ADDENDUM: 09/14/22 1118 [...] shock if needed Total time spent in [id number] encounter in discussion of advanced directive 16 minutes. Charges/Coding Visit Charges Inpatient E&M: 50363 Init Hosp L3 Procedures Hospitalists Procedures: 14585 Advncd Care Plan 30 Min 09/14/22 1544 <Electronically signed by Abraham Yepez MD> Cosigner Signature (if applicable): CC: Dr. Steve Alexandre MD; Dr. Abraham Yepez MD~ Signed [facility] Work Phone: Evaluation note* Diagnosis Onset Date Resolution Status Anxiety and depression chron ic GERD (gastroesophageal reflux disease) chronic HTN (hypertension), benign c hronic Occipital neuralgia chronic Chronic neck pain chronic GERD (gastroesophageal reflux disease) chronic HTN (hypertension), benign c hronic Occipital neuralgia chronic Paresthesias noneactive Dysuria noneactive [facility] Work Phone: Evaluation note* Diagnosis Onset Date Resolution Status Chronic neck pain chronic GERD (gastroesophageal reflux disease) chronic HTN (hypertension), benign c hronic Occipital neuralgia chronic Paresthesias noneactive Dysuria noneactive Anxiety and depression chron ic Chronic neck pain chronic HTN (hypertension), benign c hronic Hypothyroidism chronic Lumbar radiculopathy chronic Osteopenia chronic [facility] Work Phone: Evaluation note* Diagnosis Onset Date Resolution Status Paresthesias noneactive Dysuria noneactive Anxiety and depression chron ic Chronic neck pain chronic HTN (hypertension), benign c hronic Hypothyroidism chronic Lumbar radiculopathy chronic Osteopenia chronic [facility] Work Phone: Evaluation note* Diagnosis Onset Date Resolution Status Anxiety and depression chron ic Chronic neck pain chronic HTN (hypertension), benign c hronic Hypothyroidism chronic Lumbar radiculopathy chronic Osteopenia chronic Dizziness acute Dysequilibrium acute History of hypertension acut e Right bundle branch block ac gambell [facility] Work Phone: Evaluation note* Diagnosis Onset Date Resolution Status Anxiety and depression chron ic Eosinophilic esophagitis chr onic Esophageal stricture chronic HTN (hypertension), benign c hronic [facility] Work Phone: Evaluation note* Diagnosis Onset Date Resolution Status Anxiety and depression chron ic Esophageal stricture chronic GERD (gastroesophageal reflux disease) chronic Osteopenia chronic Vertigo chronic [facility] Work Phone: Evaluation note* Diagnosis Regular astigmatism, bilateral- Primary Hyperopia, bilateral Presbyopia Combined forms of age-related cataract of both eyes Other and combined forms of senile cataract 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 Vitreous floaters of both eyes documented in this encounter [facility] for referral (narrative)No reason for referral information availableWProMedica [facility] Work Phone: Summary Purpose Family History No [...] Will No September 05 12:11pm Power of Technology Resource Teacher No September 05, 2019 12:11pm Advance Directive Response Recorded Date/ Time Living Will No September 05 11:11am Power of Technology Resource Teacher No September 05, 2019 11:11am Advance Directive Response Recorded Date/ Time Living Will No September 14, 2 023 10:12am Power of Technology Resource Teacher No September 14, 2022 10:12am Advance Directive Response Recorded Date/ Time Living Will No September 14 2 023 12:29pm Power of Technology Resource Teacher No September 14, 2022 12:29pm Advance Directive Response Recorded Date/ Time Living Will No September 14 2 023 1:29pm Power of Technology Resource Teacher No September 14, 2022 1:29pm Advance Directive Response Recorded Date/ Time Living Will No September 14 2 023 1:29pm Do you have a Healthcare Power of Technology Resource Teacher? No September 14, 2022 1:29pm Living Will No August 04 10:56am Do you have a Healthcare Power of Technology Resource Teacher? No August 04, 2024 10:56am Advance Directive Response Recorded Date/ Time Living Will No September 14 2 023 1:29pm Do you have a Healthcare Power of Technology Resource Teacher? No September 14, 2022 1:29pm Advance Directive Response Recorded Date/ Time Do you have a Healthcare Power of Technology Resource Teacher? No January 30, 2025 5:49pm Chief Complaint [...] THORACIC SPINE September 22, 2024 1:54pm Room September 22, 2024 2:12pm R06.02 - Shortness [...] and content) DATE CREATED AUTHOR 02/24/2018 Kerry Jimenez [facility] DATE CREATED AUTHOR AUTHOR'S ORGANIZ ATION 07/11/2018 [facility] DATE CREATED AUTHOR AUTHOR'S ORGANIZ ATION 07/11/2018 [facility] DATE CREATED AUTHOR AUTHOR'S ORGANIZ ATION 05/04/2023 [facility] DATE CREATED AUTHOR AUTHOR'S ORGANIZ ATION 12/12/2023 [facility] DATE CREATED AUTHOR AUTHOR'S ORGANIZ ATION 01/03/2025 Ricky Luis [facility] DATE CREATED AUTHOR AUTHOR'S ORGANIZ ATION 01/15/2025 [facility] DATE CREATED AUTHOR AUTHOR'S ORGANIZ ATION 03/03/2025 [facility] DATE CREATED AUTHOR AUTHOR'S ORGANIZ ATION 03/04/2025 [facility] Goals (unrecognized section and content) Goals may [...] MD Admit Provider, Attending Provi norma Active Vice President Talent Management Relationship Specialty Start Date End Date Steve Alexandre MD [address] [place] [address] PCP - General Internal Medicine 05/12/23 Team [...] Provider Active Start: September 19, 2024 Dr. Kalyna Adler MD Attending Provider Active Start: September [...] tart: September 25, 2024 Dr. Thai Hurst DO Referring Provider Active S tart: September 25, 2024 Dr. Thai Hurst DO Other Provider Active Start : September 25, [...] Care Provider Active Start: January 10, 2025 AKE Wilson Attending Provider Active Start: January 10, [...] or prosecute any alcohol or drug abuse patient.[facility] Reason for Visit (unrecogniz ed section and [...] BE BASED ON THE PRIMARY CLINICAL RECORDS. [facility]. provides no warranty or guarantee of the accuracy or completeness of information in this document.
== END | disposition home or self-care (01) ==
LOC: CT 16:04
PROVIDERS: PCP Internal Medicine; Referring Provider Nurse Practitioner Family; Visit Provider Nurse Practitioner Family
DX: R93.89 Abnormal findings on diagnostic imaging of other specified body structures (principal); R06.02 Shortness of breath
CPT/HCPCS: 71250

== ENCOUNTER → 2025-05-25 | Outpatient (CLI) | payer MEDICARE, SELFPAY | END | disposition home or self-care (01) | LOC: LABSPEC 14:51 | PROVIDERS: PCP Internal Medicine; Referring Provider Nurse Practitioner Family; Visit Provider Nurse Practitioner Family | DX: R39.15 Urgency of urination (principal) | CPT/HCPCS: 87077; 87086; 87088; 87186 ==

== ENCOUNTER → 2025-07-02 | Outpatient (CLI) | payer MEDICARE, SELFPAY | END | disposition home or self-care (01) | LOC: LABSPEC 15:00 | PROVIDERS: PCP Internal Medicine; Visit Provider Physician Assistant | DX: R30.0 Dysuria (principal) | CPT/HCPCS: 87086; 87088 ==

== ENCOUNTER → 2025-07-09 | Outpatient (CLI) | payer MEDICARE, SELFPAY ==
[2025-07-09 13:46] LABS: Hematocrit 40.6 % (37-47); Hemoglobin 12.9 g/dL (12.0-15.0); Immature Granulocytes Count 0.050 X10^3/uL (0.0-0.0); Mean Corp Hgb Conc 31.8 g/dL (32-36); Mean Corpuscular Volume 83.4 fL (81-99); Mean Platelet Vol. 10.4 fl (6.2-12.0); NRBC Flagged by Analyzer 0 % (0-5); Platelet Count 289 K/mm3 (150-450); RBC Distribution Width CV 15.0 % (11.6-14.6); RBC Distribution Width SD 45.1 fl (35.1-43.9); Red Blood Count 4.87 M/mm3 (4.2-5.4); White Blood Count 6.6 K/mm3 (4.4-11.0)
[2025-07-09 14:13] LABS: AST(SGOT) 24 U/L (<=31); Alanine Aminotransfer ALT/SGPT 29 U/L (<=34); Albumin, Serum 4.2 g/dL (3.4-4.8); Alkaline Phosphatase 44 U/L (35-104); Anion Gap 10 (5-15); BUN 21 mg/dL (4-19); BUN/Creat Ratio 20.2 RATIO (10-20); Calcium,Total 9.6 mg/dL (7.6-11.0); Carbon Dioxide 27.1 mmol/L (21.0-32.0); Chloride 100 mmol/L (98-108); Globulin 2.7 g/dL (2.2-4.2); Glucose 87 mg/dL (70-99); Potassium 4.0 mmol/L (3.3-5.1)
== END | disposition home or self-care (01) ==
LOC: LAB 13:14
PROVIDERS: PCP Internal Medicine; Referring Provider Nurse Practitioner Family; Visit Provider Nurse Practitioner Family
DX: N30.90 Cystitis, unspecified without hematuria (principal); R30.0 Dysuria; I10 Essential (primary) hypertension; E03.9 Hypothyroidism, unspecified
CPT/HCPCS: 36415; 80053; 84443; 85025; 87077; 87086; 87088; 87186